=== PATIENT | female | born 1955 | race Caucasian/White ===

== ENCOUNTER 2019-04-09 10:51 | Outpatient (CLI) | payer MEDICARE, MEDICAID, SELFPAY ==
[2019-04-09 11:10] VITALS: BP 109/68; PULSE 68; RESP 18; TEMP 36.6; O2SAT 88
[2019-04-09] MEDS: denosumab 60 mg SDV SUBCUT (11:27)
[2019-04-09 12:00] VITALS: BP 125/75; PULSE 100; RESP 18; TEMP 36.6
== END 2019-04-09 10:52 | disposition home or self-care (01) ==
LOC: RHEOACUTE 10:53
PROVIDERS: Family Provider Family Medicine; Visit Provider Family Medicine
DX: M81.0 Age-related osteoporosis without current pathological fracture (principal)
CPT/HCPCS: 96372; J0897

== ENCOUNTER 2019-04-30 08:40 | Outpatient (CLI) | payer MEDICARE, MEDICAID, SELFPAY ==
--- NOTE | 2019-04-30 09:30 | PFTS_ITS ---
Date of Study:04/30/19 Date of Dictation: 04/30/19 MECHANICS: Forced vital capacity (FVC) is reduced. Forced expiratory volume in one second (FEV1) is reduced. FEV1/FVC is elevated. FLOW VOLUME LOOP: Narrow. LUNG VOLUMES: Total lung capacity (TLC) is not performed. Residual volume (RV) is not performed because of claustrophobia. Relatively preserved inspiratory capacity and significantly diminished expiratory reserve volume. DIFFUSING CAPACITY FOR CARBON MONOXIDE: Normal. INTERPRETATION: The pulmonary function tests are consistent with severe restriction. Given the relatively preserved inspiratory capacity and significantly diminished expiratory reserve volume the patient most likely has restriction secondary to obesity. Gas exchange (DLCO) is normal. MTDD
== END 2019-04-30 08:41 | disposition home or self-care (01) ==
LOC: RT 08:45
PROVIDERS: Family Provider Family Medicine; PCP Family Medicine; Visit Provider Family Medicine
DX: J44.9 Chronic obstructive pulmonary disease, unspecified (principal)
CPT/HCPCS: 94060; 94726; 94729; J7611

== ENCOUNTER 2019-05-15 10:26 | Outpatient (RCR) | payer MEDICARE, MEDICAID, SELFPAY | END 2019-05-17 23:59 | disposition home or self-care (01) | LOC: PULRHB 10:26 | PROVIDERS: Family Provider Family Medicine; PCP Family Medicine; Visit Provider Family Medicine | DX: I27.21 Secondary pulmonary arterial hypertension (principal) | CPT/HCPCS: 94618 ==

== ENCOUNTER 2019-05-16 10:53 | Inpatient (IN) | payer MEDICARE, MEDICAID, SELFPAY ==
[2019-05-16] VITALS (96 sets, daily range): BP systolic 95–167; BP diastolic 65–119; PULSE 85–121; RESP 14–22; TEMP 36.5–36.8; O2SAT 80–100; BMI 46.3
--- NOTE | 2019-05-16 | XRR_ITS ---
PROCEDURE INFORMATION: Exam: XR Chest, 1 View Exam date and time: 05/16/2019 2:54 PM Age: 64 years old Clinical indication: Device placement; Ett placement (vent status); Additional info: Post intubation TECHNIQUE: Imaging protocol: XR of the chest Views: 1 view. COMPARISON: CR XR chest 1V portable [id number] 05/16/2019 12:57 PM FINDINGS: Tubes, catheters and devices: An endotracheal tube is present, terminating 2.5 cm above the lucille. A nasogastric tube is seen entering the stomach. The distal tip is below the field of view on this exam. Lungs: Unremarkable. No consolidation. Pleural space: Unremarkable. No pleural effusion. No pneumothorax. Heart/Mediastinum: The cardiac silhouette is moderately enlarged, likely due to underlying cardiomegaly. Bones/joints: Unremarkable. XR/XR chest 1V portable [id number] IMPRESSION: 1. The endotracheal tube terminates 2.5 cm above the lucille. 2. A nasogastric tube is seen entering the stomach. The distal tip is below the field of view on this exam. 3. Moderate cardiomegaly
--- NOTE | 2019-05-16 11:10 | ED_ITS ---
Entered by Monique Guajardo, acting as scribe for Eligio Yi DO May 16, 2019 10:53 HPI - Headache General: Chief Complaint: Headache Stated Complaint: HEADACHE, VOMITING Time Seen by Provider: 05/16/19 11:05 Source: patient and EMS Mode of arrival: EMS Limitations: no limitations History of Present Illness: HPI Narrative: 64-year-old female presents emergency room with complaint of elevated blood pressure focal neurologic deficits on disc history taking. No new medications. She is never taking anything for a blood pressure up to this point. She denies chest pain or shortness of breath. On arrival patient difficult time speaking and then became progressively worsened.She was able to give me a history when she first arrived and answer questions for review of systems and then began to progressively deteriorate reviewing her old chart she has had a similar course in the past. MD elicited complaint: headache and other (high blood pressure) Onset (ago): day(s) (this morning) Onset description: gradually Location: right Severity: moderate Quality & Timing: throbbing Exacerbating factors: none Relieving factors: nothing Context: occurred at rest Associated symptoms: Reports nausea and vomiting; Deny chest pain, confusion, fever(s), malaise, rash or syncope Treatments prior to arrival: other (EMS, Oxygen) Review of Systems General: Reports: ROS unobtainable due to mental status (Intubated) Const: Denies: fever, chills, body aches, fatigue, malaise or night sweats Eyes: Denies: change in vision or blurry vision ENMT: Denies: throat pain, oral sores/lesions, dental pain, nasal discharge or nasal congestion Card: Reports: shortness of breath when lying down; Denies: chest pain, palpitations, irregular heart rhythm, edema, syncope, shortness of breath on exertion or leg pain with exertion Resp: Denies: shortness of breath, productive cough, non-productive cough or wheezing GI: Reports: nausea and vomiting : Denies: flank pain, painful urination, urinary frequency, urinary urgency, urinary incontinence or blood in urine Musc: Denies: neck pain, back pain, extremity pain, extremity swelling, joint pain or joint swelling Skin/Breast: Denies: rash, itching or redness Neuro: Reports: headache; Denies: numbness in extremities, weakness in extremities, changes in sensation, lack of coordination, difficulty walking, frequent falls, dizziness, vertigo or confusion Psych: Denies: anxiety, depression, loss of interest, visual hallucinations, auditory hallucinations, suicidal ideation or homicidal ideation Endo: Denies: excessive urination, excessive thirst, tired all the time or cold intolerance Maximo/Lymph: Denies: easy bruising, easy bleeding, petechiae, enlarged lymph nodes or tender lymph nodes PFSH ED PFSH: Medical History Acute on chronic diastolic (congestive) heart failure Cataract fragments in eye following surgery COPD (chronic obstructive pulmonary disease) Decompensated COPD with exacerbation (chronic obstructive pulmonary disease) Depression Diastolic congestive heart failure Hypercalcemia Elevated parathyroid hormone level in the past, 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 Hyperlipidemia Hypertension Moderate to severe mitral regurgitation Nonischemic cardiomyopathy Obesity Obstructive sleep apnea Pulmonary hypertension Seizure disorder Tricuspid regurgitation Type 2 diabetes mellitus Surgical History H/O mitral valve replacement History of Ulnar nerve compression Family History Other CAD (coronary artery disease) Social History Smoking and tobacco status: current every day smoker Alcohol intake: never Physical Exam Const: COMMON NORMALS: average body habitus, oriented x3 and alert GENERAL APPEARANCE: cooperative, comfortable, well kempt and well developed NUTRITIONAL APPEARANCE: obese ORIENTATION/CONSCIOUSNESS: Yes awake, Yes oriented to person and Yes oriented to place HENMT: COMMON NORMALS: normocephalic, head/scalp atraumatic, EAC's normal, TM's normal bilaterally, external nose normal, moist oral mucous membranes and oropharynx normal HEAD & SCALP: normocephalic and atraumatic NOSE: external nose normal EXTERNAL AUDITORY CANAL: EAC's normal TYMPANIC MEMBRANE: TM's normal bilaterally MOUTH: oral and palatal mucosa normal, lip normal and tongue normal THROAT: posterior oropharynx normal and tonsils normal Eye: COMMON NORMALS: PERRL, EOMs intact bilaterally, conjunctivae normal and no scleral icterus CONJUNCTIVA: Yes conjunctivae normal PUPIL: Yes PERRL Neck/C-Spine: COMMON NORMALS: full ROM, no lymphadenopathy, supple, no meningeal signs and thyroid normal THYROID: thyroid normal and asymmetrical Lymph: LYMPHATIC: no lymphadenopathy noted Cardio: COMMON NORMALS: regular rate and regular rhythm RATE: regular rate RHYTHM: regular rhythm HEART SOUNDS: no murmurs GI: COMMON NORMALS: normal to inspection, nondistended, normoactive bowel sounds, soft to palpation and no hepatosplenomegaly PALPATION: Yes soft and Yes no hepatosplenomegaly : COMMON NORMALS: Yes no CVA tenderness BLADDER/KIDNEY EXAM: Yes no CVA tenderness Back/Pelvis: COMMON NORMALS: no CVA tenderness LUMBAR SPINE/LOWER BACK: Yes normal to inspection Extremity: COMMON NORMALS: no clubbing, cyanosis or edema, no calf tenderness and no pedal edema Neuro: COMMON NORMALS: oriented x3 SENSORIUM/ORIENTATION: Yes alert, Yes oriented to person and Yes oriented to place MENINGEAL SIGNS: Yes no meningeal signs Psych: APPEARANCE: Yes well kempt Skin: COMMON NORMALS: no rashes or lesions noted and skin turgor normal GENERAL SKIN EXAM: no rashes or lesions noted and turgor normal Procedures Intubation Time out performed: No sedative: Etomidate Mg Given: 30 paralytic: Succinylcholine Mg Given: 120 Laryngoscope: Leann ET Tube Size: 8.5 ET Tube Uncuffed: No Tube Secured Depth (cm): 22 Tube Placement Confirmation: visualized tube passing through cords, equal breath sounds bilaterally, no breath sounds over epigastrium and confirmation by capnometry Patient Tolerated Procedure: well Intubation Complications: none Additional Comments: Recheck blood gas 45 to 60 minutes after intubation Course ED course: During the ER course patient progressively worsened. After we called for Dr. Leija to admit patient continued to worsen and eventually required intubation. She will be admitted to the ICU and started on antibiotics. Vital Signs: Vital signs: Vital Signs Temperature 98.2 F 05/20/19 08:00 Pulse Rate 97 05/20/19 10:00 Respiratory Rate 31 H 05/20/19 09:25 Blood Pressure 107/59 05/20/19 10:00 Pulse Oximetry 91 05/20/19 10:00 MDM - Headache Lab Data: Labs: Lab Results 05/16/19 05/16/19 05/16/19 Range/Units 11:50 11:55 11:55 WBC 24.7 H (4.0-10.0) 10^3/ uL RBC 5.63 H (4.1-5.3) 10^6/u L Hgb 15.3 (11.5-15.3) g/dL Hct 50.4 H (37.0-47.0) % MCV 89.5 (81-99) fL MCH 27.2 L (28.0-34.0) pg MCHC 30.4 (30.0-36.0) g/dL RDW 15.9 H (12.1-15.1) % Plt Count 261 (130-400) 10^3/c mm MPV 11.0 H (7.4-10.4) fL Neut % (Auto) 90.9 % Lymph % (Auto) 4.5 % [place] % (Auto) 3.5 % Eos % (Auto) 0.3 % Baso % (Auto) 0.2 % Neut # (Auto) 22.5 H (1.8-7.7) 10^3/u L Lymph # (Auto) 1.1 (0.8-4.8) 10^3/u L [place] # (Auto) 0.9 (0.2-0.9) 10^3/u L Eos # (Auto) 0.1 (0.0-0.8) 10^3/u L Baso # (Auto) 0.1 (0.0-0.1) 10^3/u L Nucleated RBC % (a uto) 0 % Nucleated RBCs # 0.0 /100WBC Sodium 135 L (136-145) mmol/L Potassium 4.0 (3.5-5.1) mmol/L Chloride 88 L (98-107) mmol/L Carbon Dioxide 31 H (22-29) mmol/L Anion Gap 20.0 H (5-19) BUN 22 (8-23) mg/dL Creatinine 1.2 H (0.5-0.9) mg/dL GFR Calculation 44.9 L (90-130) mL/min Glucose 218 H (65-115) mg/dL Calcium 10.9 H (8.5-10.5) mg/dL Total Bilirubin 0.6 (0.15-1.2) mg/dL AST 19 (0-32) U/L ALT 14 (0-33) U/L Alkaline Phosphata se 98 (35-105) IU/L Total Protein 8.9 H (6.6-8.7) g/dL Albumin 4.1 (3.5-5.2) g/dL Globulin 4.8 H (1.3-4.6) g/dL Lipase 106 H (13-60) U/L Serum Ketones (Negative) Influenza Type A A g Negative (Negative) POC Influenza B Ag Negative (Negative) 05/16/19 Range/Units 11:55 WBC (4.0-10.0) 10^3/ uL RBC (4.1-5.3) 10^6/u L Hgb (11.5-15.3) g/dL Hct (37.0-47.0) % MCV (81-99) fL MCH (28.0-34.0) pg MCHC (30.0-36.0) g/dL RDW (12.1-15.1) % Plt Count (130-400) 10^3/c mm MPV (7.4-10.4) fL Neut % (Auto) % Lymph % (Auto) % [place] % (Auto) % Eos % (Auto) % Baso % (Auto) % Neut # (Auto) (1.8-7.7) 10^3/u L Lymph # (Auto) (0.8-4.8) 10^3/u L [place] # (Auto) (0.2-0.9) 10^3/u L Eos # (Auto) (0.0-0.8) 10^3/u L Baso # (Auto) (0.0-0.1) 10^3/u L Nucleated RBC % (a uto) % Nucleated RBCs # /100WBC Sodium (136-145) mmol/L Potassium (3.5-5.1) mmol/L Chloride (98-107) mmol/L Carbon Dioxide (22-29) mmol/L Anion Gap (5-19) BUN (8-23) mg/dL Creatinine (0.5-0.9) mg/dL GFR Calculation (90-130) mL/min Glucose (65-115) mg/dL Calcium (8.5-10.5) mg/dL Total Bilirubin (0.15-1.2) mg/dL AST (0-32) U/L ALT (0-33) U/L Alkaline Phosphata se (35-105) IU/L Total Protein (6.6-8.7) g/dL Albumin (3.5-5.2) g/dL Globulin (1.3-4.6) g/dL Lipase (13-60) U/L Serum Ketones Negative (Negative) Influenza Type A A g (Negative) POC Influenza B Ag (Negative) Imaging Data^: CT Head: Radiologist's impression: [address] [address] [address] Scan Report Signed Patient: Yaquelin Loera #: [id number] : 4Acc#:[id number] Age/Sex: 64 / FADM Date: 05/16/19 Loc: ERRoom/Bed: Attending Dr: Ordering Provider/Ordering MD: Eligio Yi DO Date of Service: 05/16/19 Procedure(s): CT head wo con* [id number] Accession Number(s): [id number] Report Number: [id number] PROCEDURE INFORMATION: Exam: CT Head Without Contrast Exam date and time: 05/16/2019 11:31 AM Age: 64 years old Clinical indication: Pain; Headache; Patient HX: Onset of headaceh with n/v starting today. ; Additional info: Headache/n/v TECHNIQUE: Imaging protocol: Computed tomography of the head without contrast. Total DLP: 1443.81 mGy-cm Radiation optimization: All CT scans at this facility use at least one of these dose optimization techniques: automated exposure control; mA and/or kV adjustment per patient size (includes targeted exams where dose is matched to clinical indication); or iterative reconstruction. COMPARISON: CT head wo con* [id number] 02/02/2019 11:31 AM FINDINGS: Brain: There is no acute intracranial hemorrhage, cerebral edema, or midline shift. Chronic microvascular ischemic changes are seen in the periventricular white matter. Ventricles: No hydrocephalus. Bones/joints: No acute fracture. Sinuses: Several opacified posterior right ethmoid air cells are noted. The paranasal sinuses are otherwise clear. Mastoid air cells: There is complete opacification of the left mastoid air cells and left middle ear cavity, new since the prior exam. Partial opacification of the right mastoid air cells is unchanged from the prior exam. Orbits: The included orbital structures are unremarkable. Soft tissues: Unremarkable. CT/CT head wo con* [id number] IMPRESSION: 1. No acute intracranial abnormality. 2. New left otomastoiditis Radiation Dose CTDIVOL = (mGy): DLP = 1443.81 (mGy-cm) Dictated By:Alpesh Roe MD Signed By:Alpesh Roe MDSigned Date/Time:05/16/19 1211 CXR: Radiologist's impression: [place] [address] XRay Report Signed Patient: Yaquelin Loera #: [id number] : 1955cct#:[id number] Age/Sex: 64 / FADM Date: 05/16/19 Loc: ERRoom/Bed: Attending Dr: Ordering Provider/Ordering MD: Eligio Yi DO Date of Service: 05/16/19 Procedure(s): XR chest 1V portable [id number] Accession Number(s): [id number] Report Number: [id number] WS: [id number] Portable AP supine chest, 05/16/2019 Clinical Data: dyspnea/cough Comparison: Portable chest, 02/11/2019. Findings: The heart remains enlarged. The pulmonary vascularity is increased. No nodules, masses or effusions are seen. The aortic arch is mildly tortuous. No pneumonia or pneumothorax is present. XR/XR chest 1V portable [id number] Impression: 1. Cardiomegaly with pulmonary vascular congestion. 2. Atherosclerosis. Dictated By:Yesy Trinidad MD Signed By:Yesy Trinidad MDSigned Date/Time:05/16/19 1322 Other Xray: Radiologist's impression: [place] [address] XRay Report Signed Patient: Yaquelin Loera #: [id number] : 1955cct#:[id number] Age/Sex: 64 / FADM Date: 05/16/19 Loc: ERRoom/Bed: Attending Dr: Ordering Provider/Ordering MD: Eligio Yi DO Date of Service: 05/16/19 Procedure(s): XR chest 1V portable [id number] Accession Number(s): [id number] Report Number: [id number] PROCEDURE INFORMATION: Exam: XR Chest, 1 View Exam date and time: 05/16/2019 2:54 PM Age: 64 years old Clinical indication: Device placement; Ett placement (vent status); Additional info: Post intubation TECHNIQUE: Imaging protocol: XR of the chest Views: 1 view. COMPARISON: CR XR chest 1V portable [id number] 05/16/2019 12:57 PM FINDINGS: Tubes, catheters and devices: An endotracheal tube is present, terminating 2.5 cm above the lucille. A nasogastric tube is seen entering the stomach. The distal tip is below the field of view on this exam. Lungs: Unremarkable. No consolidation. Pleural space: Unremarkable. No pleural effusion. No pneumothorax. Heart/Mediastinum: The cardiac silhouette is moderately enlarged, likely due to underlying cardiomegaly. Bones/joints: Unremarkable. XR/XR chest 1V portable [id number] IMPRESSION: 1. The endotracheal tube terminates 2.5 cm above the lucille. 2. A nasogastric tube is seen entering the stomach. The distal tip is below the field of view on this exam. 3. Moderate cardiomegaly Dictated By:Alpesh Roe MD Signed By:Alpesh Roe MDSigned Date/Time:05/16/19 1526 Critical Care Time Critical Care Time: Total Critical Care Time: 60 Attestation: This case had a high probability of a clinically significant, sudden, or life threatening deterioration of this patient's condition which required my full and direct attention, intervention and personal management. Discharge Plan Discharge Patient Disposition: Admitted As Inpatient Admit Provider: Yariel Leija Clinical Impression: Respiratory failure, Acute diastolic heart failure, Moderate to severe mitral regurgitation, Decompensated COPD with exacerbation (chronic obstructive pulmonary disease), Nonischemic cardiomyopathy, Acute on chronic diastolic (congestive) heart failure Condition: Stable Referrals: Tashi Acosta MD [Primary Care Provider] - Interventions: ED Discharge Assessment Last Done: 05/16/19 16:25 Discharge Date/Time: 05/16/19 16:25 Coding Level of Care Code ED Certified Flex Endoscope Reprocessor for Chg Fwd Exam Comprehensive The documentation recorded by the Bennett restrepo Bridget Annette, accurately reflects the service I personally performed and the decisions made by Kassidy dumont Curtis L, DO May 16, 2019 10:53
--- NOTE | 2019-05-16 11:15 | ECG_ITS ---
Measurements Intervals [place] Rate: 111 P: 60 LA: 169 QRS: 88 QRSD: 93 T: 49 QT: 345 QTc: 471 SINUS TACHYCARDIA WITH FREQUENT VENTRICULAR PREMATURE COMPLEXES WITH OCCASIONAL SUPRAVENTRICULAR PREMATURE COMPLEXES POSSIBLE LEFT ATRIAL ENLARGEMENT [-0.1mV P WAVE IN V1/V2] ABNORMAL RHYTHM ECG Compared to ECG 02/14/2019 19:10:35 Ventricular premature complex(es) now present Sinus rhythm no longer present Myocardial infarct finding no longer present Electronically Signed On 05-17-2019 7:51:52 ROLLOUT MANAGER by Rosa Gayle M.D. [email or web address]
--- NOTE | 2019-05-16 11:23 | CTR_ITS ---
PROCEDURE INFORMATION: Exam: CT Head Without Contrast Exam date and time: 05/16/2019 11:31 AM Age: 64 years old Clinical indication: Pain; Headache; Patient HX: Onset of headaceh with n/v starting today. ; Additional info: Headache/n/v TECHNIQUE: Imaging protocol: Computed tomography of the head without contrast. Total DLP: 1443.81 mGy-cm Radiation optimization: All CT scans at this facility use at least one of these dose optimization techniques: automated exposure control; mA and/or kV adjustment per patient size (includes targeted exams where dose is matched to clinical indication); or iterative reconstruction. COMPARISON: CT head wo con* [id number] 02/02/2019 11:31 AM FINDINGS: Brain: There is no acute intracranial hemorrhage, cerebral edema, or midline shift. Chronic microvascular ischemic changes are seen in the periventricular white matter. Ventricles: No hydrocephalus. Bones/joints: No acute fracture. Sinuses: Several opacified posterior right ethmoid air cells are noted. The paranasal sinuses are otherwise clear. Mastoid air cells: There is complete opacification of the left mastoid air cells and left middle ear cavity, new since the prior exam. Partial opacification of the right mastoid air cells is unchanged from the prior exam. Orbits: The included orbital structures are unremarkable. Soft tissues: Unremarkable. CT/CT head wo con* [id number] IMPRESSION: 1. No acute intracranial abnormality. 2. New left otomastoiditis Radiation Dose CTDIVOL = (mGy): DLP = 1443.81 (mGy-cm)
--- NOTE | 2019-05-16 11:37 | PC.NURSE ---
pt transported to CT by stretcher with tech
[2019-05-16] MEDS: ondansetron 2 mg/ML SDV 2 mL 4 MG IVP (11:48)
[2019-05-16] MEDS: sodium chloride 0.9% 1,000 ML 999 ML IV (11:48)
[2019-05-16 12:14] LABS: Basophils # 0.1 10^3/uL (0.0-0.1); Basophils % 0.2 %; Eosinophils # 0.1 10^3/uL (0.0-0.8); Eosinophils % 0.3 %; Hematocrit 50.4 % (37.0-47.0); Hemoglobin 15.3 g/dL (11.5-15.3); Lymphocytes # 1.1 10^3/uL (0.8-4.8); Lymphocytes % 4.5 %; Mean Corpuscular HGB Conc 30.4 g/dL (30.0-36.0); Mean Corpuscular Hemoglobin 27.2 pg (28.0-34.0); Mean Corpuscular Volume 89.5 fL (81-99); Monocytes # 0.9 10^3/uL (0.2-0.9); Monocytes % 3.5 %; Neutrophils # 22.5 10^3/uL (1.8-7.7); Neutrophils % 90.9 %; Nucleated Red Blood Cells % 0 %; Platelet Count 261 10^3/cmm (130-400); Red Blood Count 5.63 10^6/uL (4.1-5.3); Red Cell Distribution Width 15.9 % (12.1-15.1); White Blood Count 24.7 10^3/uL (4.0-10.0)
[2019-05-16 12:20] LABS: Ketone (Acetest) Serum Negative (Negative)
[2019-05-16 12:31] LABS: Alanine Aminotransferase 14 U/L (0-33); Albumin Level 4.1 g/dL (3.5-5.2); Alkaline Phosphatase 98 IU/L (35-105); Aspartate Amino Transferase 19 U/L (0-32); Blood Urea Nitrogen 22 mg/dL (8-23); Calcium 10.9 mg/dL (8.5-10.5); Carbon Dioxide 31 mmol/L (22-29); Chloride 88 mmol/L (98-107); Globulin 4.8 g/dL (1.3-4.6); Glomerular Filtration Rate 44.9 mL/min (90-130); Glucose 218 mg/dL (65-115); Lipase 106 U/L (13-60); Sodium 135 mmol/L (136-145); Total Bilirubin 0.6 mg/dL (0.15-1.2); Total Protein 8.9 g/dL (6.6-8.7)
[2019-05-16 12:36] LABS: Influenza A by IFA Negative (Negative); Influenza B by IFA Negative (Negative)
--- NOTE | 2019-05-16 12:53 | XR_ITS ---
WS: [id number] Portable AP supine chest, 05/16/2019 Clinical Data: dyspnea/cough Comparison: Portable chest, 02/11/2019. Findings: The heart remains enlarged. The pulmonary vascularity is increased. No nodules, masses or e ffusions are seen. The aortic arch is mildly tortuous. No pneumonia or pneumothorax is present. XR/XR chest 1V portable [id number] Impression: 1. Cardiomegaly with pulmonary vascular congestion. 2. Atherosclerosis.
--- NOTE | 2019-05-16 13:00 | PC.NURSE ---
portable xray at bedside
--- NOTE | 2019-05-16 13:22 | CTR_ITS ---
PROCEDURE INFORMATION: Exam: CT Abdomen And Pelvis With Contrast Exam date and time: 05/16/2019 2:39 PM Age: 64 years old Clinical indication: Nausea and vomiting; Patient HX: Nausea vomiting and dizziness; Additional info: Abd pain TECHNIQUE: Imaging protocol: Computed tomography of the abdomen and pelvis with intravenous contrast. Total DLP: 1907.68 mGy-cm Radiation optimization: All CT scans at this facility use at least one of these dose optimization techniques: automated exposure control; mA and/or kV adjustment per patient size (includes targeted exams where dose is matched to clinical indication); or iterative reconstruction. Contrast material: VISI 320; Contrast volume: 95 ml; Contrast route: 20G; COMPARISON: CT abdomen pelvis w con* [id number] 12/28/2018 3:25 PM FINDINGS: Tubes, catheters and devices: A nasogastric tube is seen terminating in the stomach. Lungs: Atelectasis is present in the lower lobes. Heart: Heart is mildly enlarged. Liver: Normal. No mass. Gallbladder and bile ducts: The gallbladder is moderately distended. There is no pericholecystic inflammation. Pancreas: Normal. No ductal dilation. Spleen: Normal. No splenomegaly. Adrenals: There is mild specific left adrenal gland thickening. The right adrenal gland is unremarkable. Kidneys and ureters: Normal. No hydronephrosis. Stomach and bowel: Unremarkable. No obstruction. No mucosal thickening. Appendix: No evidence of appendicitis. Intraperitoneal space: Unremarkable. No free air. No significant fluid collection. Vasculature: Unremarkable. No abdominal aortic aneurysm. Lymph nodes: Unremarkable. No enlarged lymph nodes. Bladder: The bladder is decompressed around a Garza catheter. Reproductive: Unremarkable as visualized. Bones/joints: Bone mineralization is decreased, suggestive of osteopenia. There is a new T12 inferior endplate compression fracture. Mild T12 vertebral body height loss is present. There is no retropulsion into the spinal canal. Additionally, there is a new comminuted compression or burst fracture L4. There is approximately 60% loss L4 vertebral body height. Minimal retropulsion into the spinal canal is present. This is not causing significant canal stenosis. However, there is moderate/severe canal stenosis at the level of the L4-L5 disc due to circumferential disc bulging, thickening of the ligamentum flavum, and facet arthropathy. Soft tissues: Unremarkable. CT/CT abdomen pelvis w con* [id number] IMPRESSION: 1. New T12 and L4 compression fractures, possibly subacute. The L4 fracture is a comminuted compression or burst fracture. 2. Chronic findings as discussed above. Radiation Dose CTDIVOL = (mGy): DLP = 1907.68 (mGy-cm)
[2019-05-16] MEDS: ipratropium-albuterol 3 mL Neb INHALATION ×2 (13:45→20:46)
--- NOTE | 2019-05-16 14:01 | PC.NURSE ---
pt put in supine position for straight catheter procedure. When procedure complete Pt dropped down to 60% on NC 2L. Respiratory therapy in room. Face mask applied and breathing treatment started. Oxygen increased 6L at that time. Pt's status improved.
[2019-05-16 14:02] LABS: Add Urine Microscopic? YES; Bilirubin Urine Neg (NEGATIVE); Blood Urine Neg (Negative); Glucose Urine UA Norm (Normal); Ketones Urine Negative (Negative); Leukocyte Esterase Urine Negative (Negative); Nitrate Urine Negative (Negative); Protein Urine Neg (Negative); Urine Appearance SL Hazy (CLEAR); Urine Color Straw (Yellow); Urobilinogen Urine Norm (Negative); pH Urine 7 (5-7)
[2019-05-16] MEDS: cefTRIAXone 1,000 MG in sodium chloride 0.9% (plus) 50 ML 100 MG IV (14:10)
--- NOTE | 2019-05-16 14:14 | PC.NURSE ---
hospitalist in room. Pt is not verbally responding at this time. Pt is 89-90% on 4L NC. Orders received
[2019-05-16 14:15] LABS: Add Urine Culture? No; Amorphous Sediment Urine 1+; Bacteria Urine TRACE
[2019-05-16 14:32] LABS: ABG PCO2 47.8 mmHg (35-45); Arterial Blood Gas Hematocrit 48.7 % (37-47); Base Excess ABG 3.8 mmol/L (-2.0-2.0); Blood Gas Allen Test Pos; Blood Gas Operator Identificat amh; Blood Gas Sample Site Radial, right; Blood Gas Sample Type Arterial; Carboxyhemoglobin 2.2 %THgb (0.4-20.1); HCO3 ABG 29.6 mmol/L (22-26); HGB O2 Sat 85.4 % (95-100); Ionized Calcium Level - ABG 1.2 mmol/L (1.1-1.4); Methemoglobin 0.1 % (0.4-1.5); Oxygen Device NC; Oxygen Saturation ABG 87.4; PO2 ABG 53.4 mmHg (80.0-100.0); Potassium Level - ABG 3.4 mmol/L (3.5-5.0); Total Hemoglobin 15.9 g/dL (12-16)
--- NOTE | 2019-05-16 14:40 | PC.NURSE ---
RSI intubation with ED Physician, RT *2, and RN*2. 30 etomidate and 100 succinocholine given at 1435, 8.0 ET tube placed at 1435. 18[place] [address] with positive gastric contents returned. 18fr nascimento catheter placed at 1440. Post procedure vital signs HR 105, 100% O2, 14 resp, bp 116/69
--- NOTE | 2019-05-16 14:44 | PC.NURSE ---
portable CXR at bedside for placement confirmation
[2019-05-16] MEDS: succinylcholine 20 mg/mL SDV 10mL 100 MG IV (14:48)
[2019-05-16] MEDS: propofol 1,000 MG/100 ML INJ 3 MG IV (14:49)
[2019-05-16 14:53] LABS: Troponin(5th) Baseline 30 ng/mL (0-10)
--- NOTE | 2019-05-16 14:53 | P.HP_ITS ---
Providers/Chief Complaint Primary Care Provider: Tashi Acosta MD Chief Complaint: HEADACHE, VOMITING History of Present Illness Yaquelin Loera is a 64 year old female that presented to the emergency department with headache, vomiting. There is some concern of shortness of breath as well. When I went to evaluate her, she was not able to speak with me, confused, short of breath. Her oxygen level was around 90% and heart rate 120. She was in moderate to severe respiratory distress. I alerted the emergency department physician and on repeat evaluation it was thought that she needed endotracheal intubation. Therefore, further history was unable to be obtained from the patient. Further history was obtained from multiple old records regarding previous hospitalizations. Review of Systems General: Reports: ROS unobtainable due to mental status (Intubated) Medications/Allergies Home Medications Medication Instructions Recorded Confirmed Last Taken Type Actos See Rx Instructions .ROUTE .COMPLEX 05/16/19 05/16/19 05/16/19 07:00 History Ozempic See Rx Instructions .ROUTE .[facility] 05/16/19 05/16/19 05/12/19 07:00 History acetaminophen [Tylenol Extra 1,000 mg PO Q4H PRN 05/16/19 05/16/19 05/15/19 18:26 History Strength] bisacodyl [Dulcolax (bisacodyl)] 5 mg PO DAILY PRN 05/16/19 05/16/19 Unknown History bisacodyl [Dulcolax (bisacodyl)] See Rx Instructions .ROUTE .[facility] 05/16/19 05/16/19 Unknown History calcitonin (salmon) See Rx Instructions .ROUTE .[facility] 05/16/19 05/16/19 05/16/19 07:00 History carbamide peroxide [Debrox] See Rx Instructions .ROUTE .COMPLEX 05/16/19 05/16/19 Unknown History cholecalciferol (vitamin D3) 25 mcg PO DAILY 05/16/19 05/16/19 05/16/19 07:00 History [Vitamin D3] fluticasone furoate [Flonase 1 spray INTRANASAL DAILY 05/16/19 05/16/19 05/16/19 07:00 History Sensimist] [id number] See Rx Instructions .ROUTE .COMPLEX 05/16/19 05/16/19 05/16/19 07:00 History [Trelegy Ellipta] furosemide [Lasix] 40 mg PO DAILY 05/16/19 05/16/19 05/16/19 07:00 History gabapentin 300 mg PO TID 05/16/19 05/16/19 05/16/19 07:00 History hydroxyzine pamoate [Vistaril] See Rx Instructions .ROUTE .[facility] 05/16/19 05/16/19 05/15/19 20:00 History insulin aspart U-100 [Novolog See Rx Instructions .ROUTE .COMPLEX 05/16/19 05/16/19 Unknown History U-100 Insulin aspart] insulin degludec [Tresiba 10 unit SUBCUT BEDTIME 05/16/19 05/16/19 05/15/19 20:00 History FlexTouch U-100] ipratropium-albuterol 3 ml INHALATION Q4H PRN 05/16/19 05/16/19 Unknown History levetiracetam See Rx Instructions .ROUTE .[facility] 05/16/19 05/16/19 05/15/19 19:00 History losartan 25 mg PO DAILY 05/16/19 05/16/19 05/16/19 07:00 History magnesium hydroxide [Milk of See Rx Instructions .ROUTE .[facility] 05/16/19 05/16/19 Unknown History Magnesia] melatonin 5 mg PO BEDTIME 05/16/19 05/16/19 05/15/19 20:00 History nicotine 1 patch TRANSDERMAL Q24H 05/16/19 05/16/19 05/15/19 History nystatin 1 applic TOPICAL BID 05/16/19 05/16/19 Unknown History ondansetron 4 mg PO Q4H PRN 05/16/19 05/16/19 Unknown History roflumilast [Daliresp] 500 mcg PO DAILY 05/16/19 05/16/19 05/16/19 07:00 History rosuvastatin 40 mg PO BEDTIME 05/16/19 05/16/19 05/15/19 20:00 History sitagliptin [Januvia] 100 mg PO DAILY 05/16/19 05/16/19 05/16/19 07:00 History sodium phosphates [Fleet Enema] See Rx Instructions .ROUTE .[facility] 05/16/19 05/16/19 Unknown History venlafaxine 75 mg PO DAILY 05/16/19 05/16/19 05/16/19 07:00 History Allergies Allergy/AdvReac Type Severity Reaction Status Date / Time Penicillins Allergy ALGY-Anaphy Verified 05/16/19 11:16 laxis Sulfa (Sulfonamide Allergy ALGY-Anaphy Verified 05/16/19 11:16 Antibiotics) laxis PFSH Acute PFSH: Medical History (Updated 05/16/19 @ 15:10 by Yariel Leija MD) Cataract fragments in eye following surgery COPD (chronic obstructive pulmonary disease) Depression Diastolic congestive heart failure Hypercalcemia Elevated parathyroid hormone level in the past, 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 Hyperlipidemia Hypertension Obesity Obstructive sleep apnea Pulmonary hypertension Seizure disorder Tricuspid regurgitation Type 2 diabetes mellitus Surgical History (Updated 05/16/19 @ 15:00 by Yariel Leija MD) H/O mitral valve replacement History of Ulnar nerve compression Family History (Updated 05/16/19 @ 15:00 by Yariel Leija MD) Other CAD (coronary artery disease) Social History (Updated 05/16/19 @ 15:00 by Yariel Leija MD) Smoking and tobacco status: current every day smoker Alcohol intake: never Substance/Drug Use: never Vitals/I&O/Wt Last Vital Signs Temp 97.7 F 05/16/19 11:10 Pulse 114 H 05/16/19 14:13 Resp 22 H 05/16/19 13:54 BP 148/103 05/16/19 14:13 Pulse Ox 90 05/16/19 14:13 Weight last 48 hrs Weight 100.698 kg Physical Exam Narrative: EXAM NARRATIVE: General exam demonstrates an obese white female, acting confused, and moderate to severe respiratory distress HEENT: Pupils equally round. Oropharynx clear but now with endotracheal tube Neck is supple, short, obese Cardiovascular tachycardic, no murmur Lungs bilateral expiratory wheezes and markedly diminished breath sounds bila terally Abdomen is soft, obese. No obvious tenderness. Unable to tell if hepatosplenomegaly is present demonstrates Garza Extremities no cyanosis or clubbing. Trace edema is present. Skin without rash Neuro no focal deficits Data : 05/16/19 11:55 05/16/19 11:55 Other Labs: ABG is reviewed. Significant hypoxia exists LFTs are normal. Lipase slightly elevated at 106. Urinalysis with no evidence of infection. Influenza negative Serum ketones negative Chest x-ray demonstrates endotracheal tube, pulmonary vascular congestion, borderline cardiomegaly EKG demonstrates sinus tachycardia, normal axis, multiple PVCs, biphasic P wave in V1, poor R wave progression Micro: Microbiology 05/16/19 13:51 Blood Culture - Preliminary Blood SPECIMEN COLLECTED 05/16/19 11:55 Blood Culture - Preliminary Blood SPECIMEN COLLECTED A&P Assessment and plan (1) Respiratory failure: Multifactorial. Most significant is acute diastolic heart failure. Lasix 60 mg IV x1 has been given in the emergency department. Patient has been intubated. Multiple cofactors including obesity hypoventilation, COPD, untreated sleep apnea, etc. had recent hospital stay for similar presentation. Status: Acute Code(s): J96.90 - Respiratory failure, unspecified, unspecified whether with hypoxia or hypercapnia (2) Acute diastolic heart failure: Lasix 60 mg IV every 12 hours Close follow-up of electrolytes Recent echocardiogram reviewed from December 2018 with EF 61%, severe pulmonary hypertension and severe tricuspid regurgitation. No need to repeat currently. Status: Acute Code(s): I50.31 - Acute diastolic (congestive) heart failure (3) COPD exacerbation: IV steroids Solu-Medrol 60 mg every 12 hours Cefepime Pulmonary toilet Would benefit from BiPAP at home if she would be compliant with this. Status: Acute Code(s): J44.1 - Chronic obstructive pulmonary disease with (acute) exacerbation (4) Elevated troponin: Trend troponins Doubt acute myocardial infarction. Status: Acute Code(s): R79.89 - Other specified abnormal findings of blood chemistry (5) Elevated lipase: Doubt pancreatitis. CT abdomen pelvis pending Status: Acute Code(s): R74.8 - Abnormal levels of other serum enzymes (6) Leukocytosis: Recently on steroids. Cannot rule out pulmonary infection. Rocephin and azithromycin started. Status: Acute Code(s): D72.829 - Elevated white blood cell count, unspecified Additional A&P Information History of hypercalcemia, appears to be on Miacalcin. Elevated parathyroid hormone level in the past Depression/anxiety Hyperlipidemia Hypertension History of severe pulmonary hypertension History of obesity Likely obesity hypoventilation History of seizure disorder, on Keppra Type 2 diabetes Multiple other medical problems as outlined in past medical history Full code Lovenox for DVT prophylaxis Attestations Medical Necessity Statement*: Will need greater than 2 midnight stay for treatment of respiratory failure, acute diastolic heart failure Time Spent in Patient Care: Greater than 35 minutes Critical Care Time: 90 minutes of time spent with the patient, with review of records, examination of the patient, planning secondary to respiratory failure requiring endotracheal intubation in the emergency department and diversion to ICU instead of floor. Coding Level of Care Code Acute Staff Air Tactical Officer for Kanchan Abdi Diagnoses Respiratory failure J96.90 Acute diastolic heart failure I50.31 COPD exacerbation J44.1 Elevated troponin R79.89 Elevated lipase R74.8 Leukocytosis D72.829
--- NOTE | 2019-05-16 14:56 | PC.NURSE ---
50mcg propofol bolus given over 1 minute
[2019-05-16] MEDS: azithromycin 500 MG in sodium chloride 0.9% 250 ML 250 MG IV (15:02)
[2019-05-16] MEDS: FUROsemide 10 mg/mL SDV 10mL 60 MG IVP (15:14)
--- NOTE | 2019-05-16 16:09 | ECG_ITS ---
Measurements Intervals [place] Rate: 92 P: 54 IL: 161 QRS: 58 QRSD: 87 T: 72 QT: 356 QTc: 441 SINUS RHYTHM WITH OCCASIONAL VENTRICULAR PREMATURE COMPLEXES POSSIBLE LEFT ATRIAL ENLARGEMENT [-0.1mV P WAVE IN V1/V2] NONSPECIFIC T-WAVE ABNORMALITY Compared to ECG 02/14/2019 19:10:35 Ventricular premature complex(es) now present T-wave abnormality now present Myocardial infarct finding no longer present Electronically Signed On 05-17-2019 20:32:49 MANUSCRIPTS CURATOR by Jay Adler M.D. [email or web address]
--- NOTE | 2019-05-16 16:21 | PC.NURSE ---
50mcg propofol bolus given over 1 minute
[2019-05-16] MEDS: iodixanol 320 mg/mL 100mL Btl IV (16:39)
[2019-05-16] MEDS: sodium chloride 0.9% 1,000 ML 100 ML IV (17:52)
[2019-05-16] MEDS: enoxaparin 40 mg/0.4 mL Syringe SUBCUT (17:53)
[2019-05-16] MEDS: levETIRAcetam 500 mg Tablet OG-TUBE ×2 (17:53→18:58)
[2019-05-16 18:04] LABS: Lipase 43 U/L (13-60)
[2019-05-16 18:08] LABS: ABG PCO2 37.5 mmHg (35-45); ABG PH Result 7.49 (7.35-7.45); Alveolar-Arterial Oxygen Gradi 89.6 mmHg (5-10); Arterial Blood Gas Hematocrit 48.3 % (37-47); Base Excess ABG 4.8 mmol/L (-2.0-2.0); Blood Gas Allen Test Pos; Blood Gas Sample Site Radial, left; Blood Gas Sample Type Arterial; Blood Gas Tidal Volume 0.5; Carboxyhemoglobin 1.1 %THgb (0.4-20.1); HCO3 ABG 28.3 mmol/L (22-26); HGB O2 Sat 97.9 % (95-100); Ionized Calcium Level - ABG 1.2 mmol/L (1.1-1.4); Methemoglobin 0.7 % (0.4-1.5); Oxygen Device VENT; Oxygen Saturation ABG 99.8; Potassium Level - ABG 3.4 mmol/L (3.5-5.0); Total Hemoglobin 15.8 g/dL (12-16)
[2019-05-16] MEDS: cefepime 2,000 MG in sodium chloride 0.9% (plus) 50 ML 100 MG IV (19:00)
--- NOTE | 2019-05-16 19:39 | PC.NURSE ---
1655 RECD. FROM E.D. INTUBATED, ON PROPOFOL
--- NOTE | 2019-05-16 20:09 | ECG_ITS ---
Measurements Intervals [place] Rate: 109 P: -18 AK: 136 QRS: 72 QRSD: 88 T: 47 QT: 354 QTc: 478 SINUS TACHYCARDIA WITH FREQUENT VENTRICULAR PREMATURE COMPLEXES NONSPECIFIC T-WAVE ABNORMALITY ABNORMAL RHYTHM ECG Compared to ECG 02/14/2019 19:10:35 Ventricular premature complex(es) now present T-wave abnormality now present Sinus rhythm no longer present Myocardial infarct finding no longer present Electronically Signed On 05-17-2019 7:54:59 TUBE ROLLER by Rosa Gayle M.D. [email or web address]
--- NOTE | 2019-05-16 20:33 | PC.NURSE ---
opening note upon entering room patient is laying in bed resting. patient does respond to touch and verbal communication. patient is intubated with an 8.0 tube 24 at the lip. VT:450, PEEP: 8, fio2:35 RR:14. patient has an OG that is clammed. soft restraints on bilateral upper extremities for patient safety. 22G in the left hand with NS at 100ml/hr. 20G to right forearm with proprfol at 15mcg/kg/min. nascimento in place with clear urine output. vital signs are stable. HR:90 O2:96 rr:14 BP: 105/73
[2019-05-16] MEDS: budesonide 0.5 mg/2 mL Neb INHALATION (20:46)
[2019-05-16] MEDS: atorvastatin 40 mg Tablet 80 MG PO (21:08)
[2019-05-16] MEDS: gabapentin 300 mg Capsule PO (21:08)
[2019-05-16] MEDS: propofol 1,000 MG/100 ML INJ 9.1 MG IV (23:17)
--- NOTE | 2019-05-16 23:58 | PC.NURSE ---
turned patient. patient had green stomach contents coming around OG tube. OG hooked to low intermitted suction.
[2019-05-17] VITALS (196 sets, daily range): BP systolic 84–131; BP diastolic 49–78; PULSE 86–157; RESP 14–20; TEMP 36.9–37.7; O2SAT 94–100
--- NOTE | 2019-05-17 | USCV_ITS ---
Yaquelin Loera Age: 64 Gender: F : 1955 Exam Date: 05/17/2019 12:41 Ordering Phys: Yariel Leija MD Technologist: Ena Roldan [place] [facility] [place]: Elevated troponin BP: 123 / 64 HR: 94 Rhythm: Sinus Technical Quality: Technically difficult study MEASUREMENTS (Male / Female) Normal Values 2D ECHO LV Diastolic Diameter PLAX 4.5 cm 4.2 - 5.9 / 3.9 - 5.3 cm LV Systolic Diameter PLAX 2.6 cm LV Chamber Size 3.9 cm IVS Diastolic Thickness 1.0 cm 0.6 - 1.0 / 0.6 - 0.9 cm IVS Systolic Thickness 1.4 cm LVPW Diastolic Thickness 1.6 cm 0.6 - 1.0 / 0.6 - 0.9 cm LVPW Systolic Thickness 1.6 cm RV Chamber Size 3.2 cm LVOT Diameter 1.9 cm LV Ejection Fraction 2D Teich 74.2 % LA Diameter 3.9 cm LA Width 2.6 cm LA Height 4.7 cm RA Width 2.5 cm RA Height 3.8 cm Aorta at Sinotubular Diameter 2.1 cm M-MODE LV Diastolic Diameter MM 5.9 cm 4.2 - 5.9 / 3.9 - 5.3 cm LV Systolic Diameter MM 4.0 cm LV Ejection Fraction MM Teich 58.7 % IVS Diastolic Thickness MM 1.2 cm 0.6 - 1.0 / 0.6 - 0.9 cm IVS Systolic Thickness MM 1.3 cm LVPW Diastolic Thickness MM 1.0 cm 0.6 - 1.0 / 0.6 - 0.9 cm LVPW Systolic Thickness MM 1.7 cm Aortic Annulus Diameter 2.8 cm LA Ao Ratio MM 1.4 MV E Point Septal Separation 0.7 cm DOPPLER AV Peak Velocity 149.0 cm/s LVOT Peak Velocity 99.0 cm/s AV Area Cont Eq vti 1.9 cm squared AV Area Cont Eq pk 1.9 cm squared MV Area PHT 6.3 cm squared Mitral E to A Ratio 1.6 MV E' Velocity 8.0 cm/s Mitral E to MV E' Ratio 18.3 Mitral E to LV E' Lateral Ratio 13.9 Mitral E to LV E' Septal Ratio 27.2 TR Peak Velocity 157.0 cm/s TR Peak Gradient 9.9 mmHg TV Peak E Velocity 55.0 cm/s Right Atrial Pressure 15.0 mmHg Pulmonary Artery Systolic Pressu 24.9 mmHg FINDINGS Left Ventricle Relative hypokinesia of the basal and mid septum and the anteroseptal segments. Overall ejection fraction around 50 to 55%. Right Ventricle Mildly increased right ventricular size. Right Atrium Mildly increased right atrial size. Left Atrium Mildly increased left atrial size. Mitral Valve Thickened mitral valve. Mild mitral annular calcification. Moderate-severe mitral valve regurgitation. Aortic Valve Thickened aortic valve. Trace aortic valve regurgitation. Tricuspid Valve Trace tricuspid valve regurgitation. Pulmonic Valve Structurally normal pulmonic valve without significant stenosis. There is no pulmonic regurgitation. Pericardium Normal pericardium without effusion. Aorta Plaque seen in the ascending aorta. CONCLUSIONS Relative hypokinesia of the basal and mid septum and the anteroseptal segments. Overall ejection fraction around 50 to 55%. Thickened mitral valve. Mild mitral annular calcification. Moderate-severe mitral valve regurgitation. Mildly biatrial enlargement Thickened aortic valve. Trace aortic valve regurgitation. There is no pericardial effusion. There are no intracardiac masses. Technically very limited study Comparison with the previous study from 04/28/2018 is difficult because of the difference in the technical quality. Dr Jay Adler MD [facility] (Electronically Signed) Final Date: 17 May 2019 19:19 S
[2019-05-17] MEDS: sodium chloride 0.9% 1,000 ML 100 ML IV (03:27)
[2019-05-17] MEDS: FUROsemide 10 mg/mL SDV 10mL 60 MG IVP (03:27)
[2019-05-17 04:19] LABS: Basophils # 0.1 10^3/uL (0.0-0.1); Basophils % 0.3 %; Hematocrit 45.9 % (37.0-47.0); Hemoglobin 14.4 g/dL (11.5-15.3); Lymphocytes # 0.7 10^3/uL (0.8-4.8); Lymphocytes % 1.4 %; Mean Corpuscular HGB Conc 31.4 g/dL (30.0-36.0); Mean Corpuscular Hemoglobin 27.7 pg (28.0-34.0); Mean Corpuscular Volume 88.4 fL (81-99); Mean Platelet Volume 11.4 fL (7.4-10.4); Monocytes # 1.5 10^3/uL (0.2-0.9); Monocytes % 3.2 %; Neutrophils # 42.3 10^3/uL (1.8-7.7); Nucleated Red Blood Cells % 0 %; Platelet Count 211 10^3/cmm (130-400); Red Blood Count 5.19 10^6/uL (4.1-5.3)
[2019-05-17 04:28] LABS: White Blood Count 46.5 10^3/uL (4.0-10.0)
[2019-05-17 04:36] LABS: Alanine Aminotransferase 11 U/L (0-33); Albumin Level 3.3 g/dL (3.5-5.2); Alkaline Phosphatase 65 IU/L (35-105); Anion Gap 20.5 (5-19); Aspartate Amino Transferase 28 U/L (0-32); Blood Urea Nitrogen 23 mg/dL (8-23); Calcium 9.1 mg/dL (8.5-10.5); Carbon Dioxide 24 mmol/L (22-29); Chloride 94 mmol/L (98-107); Globulin 4.3 g/dL (1.3-4.6); Glomerular Filtration Rate 49.7 mL/min (90-130); Glucose 254 mg/dL (65-115); Lipase 8 U/L (13-60); Potassium 3.5 mmol/L (3.5-5.1); Sodium 135 mmol/L (136-145); Total Bilirubin 0.7 mg/dL (0.15-1.2); Total Protein 7.6 g/dL (6.6-8.7)
--- NOTE | 2019-05-17 05:10 | PC.NURSE ---
critical lab value. WBC reported of 46.5 with AM labs. notified. per i am not going to order anything right now. I will leave it for . OG checked for patency, green thin substance noted. axilliary temp of 99.9.
--- NOTE | 2019-05-17 05:12 | PM.EVENT ---
Event Note Event Note: Called with patient having increased white count, nearly double what it was yesterday. We will send off a peripheral smear. She is on broad antibiotics. No signs of any diarrhea per nursing staff. Vital signs are otherwise stable and no other acute changes.
[2019-05-17] MEDS: ipratropium-albuterol 3 mL Neb INHALATION ×4 (05:15→21:39)
[2019-05-17] MEDS: levETIRAcetam 500 mg Tablet OG-TUBE (06:01)
[2019-05-17] MEDS: cefepime 2,000 MG in sodium chloride 0.9% (plus) 50 ML 100 MG IV ×2 (06:02→17:34)
[2019-05-17 06:23] LABS: ABG PCO2 40.3 mmHg (35-45); ABG PH Result 7.47 (7.35-7.45); Arterial Blood Gas Hematocrit 49.9 % (37-47); Blood Gas Sample Site Brachial, right; Blood Gas Sample Type Arterial; HCO3 ABG 29.2 mmol/L (22-26); Oxygen Device VENT; PO2 ABG 94.2 mmHg (80.0-100.0)
--- NOTE | 2019-05-17 07:29 | XRR_ITS ---
PROCEDURE INFORMATION: Exam: XR Chest, 1 View Exam date and time: 05/17/2019 6:28 AM Age: 64 years old Clinical indication: Shortness of breath; Additional info: Respiratory failure TECHNIQUE: Imaging protocol: XR of the chest Views: 1 view. COMPARISON: CR XR chest 1V portable [id number] 05/16/2019 2:37 PM FINDINGS: Tubes, catheters and devices: The endotracheal tube is above the level of the lucille. nasogastric tube extends below the diaphragm although the location of the tip not identified as it is outside of the [id number]. Lungs: Mild basilar airspace disease on the right suggested. Follow-up recommended. Pleural space: Unremarkable. No pleural effusion. No pneumothorax. Heart/Mediastinum: Unremarkable. No cardiomegaly. Bones/joints: Unremarkable. XR/XR chest 1V portable [id number] IMPRESSION: Mild basilar airspace disease on the right suggested. Follow-up recommended.
[2019-05-17] MEDS: budesonide 0.5 mg/2 mL Neb INHALATION ×2 (08:00→21:39)
--- NOTE | 2019-05-17 08:11 | PM.PN ---
Subjective Subjective: Interval history: Yaquelin is sedated on the ventilator, but awakens and is coughing some. She had an episode of vomiting around her tube last night. Medications: Reviewed: Yes Vitals/I&O/Wt Last Vital Signs Temp 99.9 F H 05/17/19 06:10 Pulse 99 05/17/19 08:04 Resp 19 H 05/17/19 08:01 BP 123/64 05/17/19 06:10 Pulse Ox 96 05/17/19 08:01 05/16/19 05/17/19 05/17/19 22:59 06:59 14:59 Intake Total 300 / 1350 983.733 / 2333.733 Output Total 950 / 950 750 / 1700 Balance -650 / 400 233.733 / 633.733 Weight last 48 hrs Weight 100.698 kg Physical Exam Narrative: EXAM NARRATIVE: General exam is an awake female, coughing Cardiovascular regular rate and rhythm without murmur Lungs diminished breath sounds bilaterally but clear Abdomen is soft with positive bowel sounds Extremities no cyanosis clubbing or edema Urinary Catheter Management^: Garza: Cath Placed During This Visit: yes Urethral Indwelling: Yes Reason for Continuing Indwelling Catheter: Accurate Measurement of Urinary Output in Critically Ill Patients Urinary Catheter Date of Insertion: 05/16/19 Urinary Catheter Time of Insertion: 14:40 Data : 05/17/19 03:55 05/17/19 03:55 Micro: Microbiology 05/16/19 17:19 Gram Stain - Final Sputum - Endotracheal Tube Aspirate 05/16/19 13:51 Blood Culture - Preliminary Blood SPECIMEN COLLECTED 05/16/19 11:55 Blood Culture - Preliminary Blood SPECIMEN COLLECTED A&P Assessment and plan (1) Respiratory failure: Multifactorial. Most significant is acute diastolic heart failure. Lasix 60 mg IV x1 has been given in the emergency department. Patient has been intubated. Multiple cofactors including obesity hypoventilation, COPD, untreated sleep apnea, etc. had recent hospital stay for similar presentation. Aspiration could have complicated her picture as well. Status: Acute Code(s): J96.90 - Respiratory failure, unspecified, unspecified whether with hypoxia or hypercapnia (2) Acute diastolic heart failure: Discontinue IV fluids Lasix 40 mg IV every 12 hours BMP tomorrow We will repeat echocardiogram secondary to elevated troponin Status: Acute Code(s): I50.31 - Acute diastolic (congestive) heart failure (3) COPD exacerbation: Change Solu-Medrol to 40 mg IV every 24 hours Cefepime. Vancomycin added as well as Flagyl secondary to elevated white blood cell count, aspiration Pulmonary toilet Would benefit from BiPAP at home if she would be compliant with this. Status: Acute Code(s): J44.1 - Chronic obstructive pulmonary disease with (acute) exacerbation (4) Elevated troponin: Secondary to positive delta check echocardiogram. Continue aspirin, statin. Continue DVT prophylaxis Lovenox at this time. Status: Acute Code(s): R79.89 - Other specified abnormal findings of blood chemistry (5) Elevated lipase: Doubt pancreatitis. CT abdomen pelvis did not show pancreatitis. Repeat lipase normal. Status: Acute Code(s): R74.8 - Abnormal levels of other serum enzymes (6) Leukocytosis: Markedly elevated. Likely secondary to aspiration, steroids Status: Acute Code(s): D72.829 - Elevated white blood cell count, unspecified Additional A&P Information Aspiration pneumonitis. Continue cefepime, add vancomycin and Flagyl history of hypercalcemia, appears to be on Miacalcin. Elevated parathyroid hormone level in the past. Calcium level normal this morning Depression/anxiety Hyperlipidemia Hypertension History of severe pulmonary hypertension History of obesity Likely obesity hypoventilation History of seizure disorder, on Keppra Type 2 diabetes Multiple other medical problems as outlined in past medical history Full code Lovenox for DVT prophylaxis Possible extubation tomorrow Attestations Medical Necessity Statement*: Needs continued hospitalization for IV antibiotics, respiratory failure requiring mechanical ventilation Critical Care Time: 34 minutes spent in ICU care managing ventilator, reviewing settings, adjusting medication for aspiration pneumonitis and multiple other comorbidities. Coding Level of Care Code Acute Production Administrator for Kanchan Abdi Diagnoses Respiratory failure J96.90 Acute diastolic heart failure I50.31 COPD exacerbation J44.1 Elevated troponin R79.89 Elevated lipase R74.8 Leukocytosis D72.829
[2019-05-17] MEDS: propofol 1,000 MG/100 ML INJ 9.1 MG IV (08:14)
[2019-05-17] MEDS: gabapentin 300 mg Capsule PO ×3 (09:06→20:45)
[2019-05-17] MEDS: roflumilast 500 mcg Tablet PO (09:06)
[2019-05-17] MEDS: aspirin 325 mg Tablet OG-TUBE (09:06)
[2019-05-17] MEDS: venlafaxine 75 mg Tablet PO (09:06)
[2019-05-17] MEDS: FUROsemide 10 mg/mL SDV 10mL 40 MG IVP ×2 (09:08→20:49)
[2019-05-17] MEDS: metroNIDAZOLE IV 500 MG/100 ML PREMIX 100 MG IV ×3 (09:08→20:46)
[2019-05-17] MEDS: calcitonin nasal 200 unit/spray 3.7 mL Btl 1 SPRAY NASAL (09:10)
[2019-05-17 12:11] LABS: LAB Peripheral Smear Sent for Review
--- NOTE | 2019-05-17 13:05 | PC.PT ---
PT note; Patient remains intubated and sedated at this time, will reattempt tomorrow
[2019-05-17] MEDS: levETIRAcetam 500 mg Tablet 1000 MG PEG-TUBE (17:33)
[2019-05-17] MEDS: enoxaparin 40 mg/0.4 mL Syringe SUBCUT (17:34)
[2019-05-17] MEDS: propofol 1,000 MG/100 ML INJ 12.1 MG IV (19:29)
[2019-05-17] MEDS: atorvastatin 40 mg Tablet 80 MG PO (20:46)
--- NOTE | 2019-05-17 22:03 | PC.CHAP ---
Pastoral Care Encounter/Spiritual Assessment Type of Contact [] Declined dirt bike racer visit [] Patient/Family/Request visit [] Outpatient visit [] Follow-up visit [] Physician referral [] Code/Alert [] Routine visit [] Staff referral [] Actively dying [] Patient sleeping [] Family support [] [] Out of room [] Palliative care [] [X] Receiving care in room [] Pre-surgical visit [] Trauma [] Long length of stay [] ICU visit [] Other: Relational/Emotional Strength [] Patient feels connected with others/family/visitors/staff [] Distress [] Loneliness/isolation [] Abandonment Spirituality of Patient [] Person of Irma [] Attends Scientology of their [place] [] Believes in Prayer [] Reads Bible or Buddhist materials [] There are Spiritual issues to be addressed Tank Calibrator Interventions [] Prayer [] Active listening [] Non-anxious presence [] Spiritual/emotional support [] Crisis/trauma care [] Spiritual counseling [] Bereavement support [] Provided bereavement packet [] Provided Bible/devotional materials [] Provided toy/stuffed animal, coloring book to patient or family member [] Provided Communion [] Anointing/[place] [] Salvation [] Completed spiritual assessment [] Other: Impact on Illness or Injury [] Angry [] Fearful [] Anxious [] Often cries [] Exhaustion [] Unable to work [] Unable to attend orthodoxy [] Unable to walk/stand [] Unable to read [] Unable to drive [] Unable to eat/drink [] Unable to sleep [] Unable to be with family [] Patient intubated [] Other: SummaryWAS TIED UP WITH NURSES DOING SOME SORT OF TREATMENT, NEED FOLLOWUP NEXT DAY Time spent with patient
--- NOTE | 2019-05-17 23:05 | PC.NURSE ---
Medication administration Vancomycin was not able to scan due to no barcode from [facility]. nurse broommaking supervisor made aware of error.
[2019-05-18] VITALS (125 sets, daily range): BP systolic 89–136; BP diastolic 50–90; PULSE 85–106; RESP 11–24; TEMP 36.8–37.1; O2SAT 91–100
[2019-05-18] MEDS: propofol 1,000 MG/100 ML INJ 18.1 MG IV ×5 (00:05→20:33)
--- NOTE | 2019-05-18 00:18 | PC.NURSE ---
sedation vacation patient given a sedation vacation. neuro intact.
[2019-05-18] MEDS: metroNIDAZOLE IV 500 MG/100 ML PREMIX 100 MG IV (02:33)
[2019-05-18 04:49] LABS: Basophils # 0.1 10^3/uL (0.0-0.1); Basophils % 0.2 %; Hematocrit 45.8 % (37.0-47.0); Hemoglobin 13.9 g/dL (11.5-15.3); Lymphocytes # 1.4 10^3/uL (0.8-4.8); Lymphocytes % 3.5 %; Mean Corpuscular HGB Conc 30.3 g/dL (30.0-36.0); Mean Corpuscular Hemoglobin 27.4 pg (28.0-34.0); Mean Corpuscular Volume 90.3 fL (81-99); Mean Platelet Volume 11.8 fL (7.4-10.4); Monocytes # 2.6 10^3/uL (0.2-0.9); Monocytes % 6.5 %; Neutrophils # 34.5 10^3/uL (1.8-7.7); Neutrophils % 85.9 %; Nucleated Red Blood Cells % 0 %; Platelet Count 187 10^3/cmm (130-400); Red Blood Count 5.07 10^6/uL (4.1-5.3); Red Cell Distribution Width 16.5 % (12.1-15.1)
[2019-05-18 05:04] LABS: Alkaline Phosphatase 77 IU/L (35-105); Blood Urea Nitrogen 30 mg/dL (8-23); Calcium 8.2 mg/dL (8.5-10.5); Carbon Dioxide 25 mmol/L (22-29); Chloride 94 mmol/L (98-107); Globulin 4.8 g/dL (1.3-4.6); Glomerular Filtration Rate 44.9 mL/min (90-130); Glucose 187 mg/dL (65-115); Sodium 137 mmol/L (136-145); Total Bilirubin 0.8 mg/dL (0.15-1.2); Total Protein 7.8 g/dL (6.6-8.7)
[2019-05-18 05:12] LABS: White Blood Count 40.2 10^3/uL (4.0-10.0)
[2019-05-18 05:14] LABS: Alanine Aminotransferase 15 U/L (0-33); Anion Gap 21.8 (5-19); Aspartate Amino Transferase 43 U/L (0-32); Potassium 3.8 mmol/L (3.5-5.1)
--- NOTE | 2019-05-18 05:18 | PC.NURSE ---
Critical lab value notified of critical value of WBC of 40.2. He acknowledged critical.
[2019-05-18] MEDS: ipratropium-albuterol 3 mL Neb INHALATION ×4 (05:26→22:12)
[2019-05-18 06:06] LABS: ABG PCO2 42.3 mmHg (35-45); ABG PH Result 7.43 (7.35-7.45); Arterial Blood Gas Hematocrit 39.5 % (37-47); Base Excess ABG 3.6 mmol/L (-2.0-2.0); Blood Gas Allen Test Pos; Blood Gas Sample Site Radial, right; Blood Gas Sample Type Arterial; HCO3 ABG 28.3 mmol/L (22-26); Oxygen Device VENT; PO2 ABG 95.9 mmHg (80.0-100.0)
[2019-05-18] MEDS: cefepime 2,000 MG in sodium chloride 0.9% (plus) 50 ML 100 MG IV ×2 (06:18→18:32)
[2019-05-18 07:31] LABS: Glucose Point of Care 266 mg/dL (70-110)
[2019-05-18 07:31] LABS: Glucose Point of Care 196 mg/dL (70-110)
[2019-05-18 07:31] LABS: Glucose Point of Care 247 mg/dL (70-110)
[2019-05-18] MEDS: FUROsemide 10 mg/mL SDV 10mL 40 MG IVP ×2 (07:35→20:32)
[2019-05-18] MEDS: metroNIDAZOLE IV 500 MG/100 ML PREMIX 150 MG IV (07:35)
--- NOTE | 2019-05-18 07:59 | XRR_ITS ---
PROCEDURE INFORMATION: Exam: XR Chest, 1 View Exam date and time: 05/18/2019 6:09 AM Age: 64 years old Clinical indication: Shortness of breath; Additional info: Respiratory failure TECHNIQUE: Imaging protocol: XR of the chest Views: 1 view. COMPARISON: CR XR chest 1V portable [id number] 05/17/2019 6:09 AM FINDINGS: Tubes, catheters and devices: Endotracheal tube is slightly above the lucille. nasogastric tube extends below the diaphragm although the location of the tip not identified as it is outside of the [id number]. Lungs: Mild airspace disease within the left lung base. Infiltrate and/or atelectasis. Pleural space: Unremarkable. No pleural effusion. No pneumothorax. Heart/Mediastinum: Cardiomegaly. Bones/joints: Unremarkable. XR/XR chest 1V portable [id number] IMPRESSION: Cardiomegaly. Mild edema. Mild airspace disease within the left lung base. Infiltrate and/or atelectasis.
[2019-05-18] MEDS: roflumilast 500 mcg Tablet PO (08:49)
[2019-05-18] MEDS: aspirin 325 mg Tablet OG-TUBE (08:49)
[2019-05-18] MEDS: venlafaxine 75 mg Tablet PO (08:49)
[2019-05-18] MEDS: gabapentin 300 mg Capsule PO ×3 (08:49→20:31)
[2019-05-18] MEDS: calcitonin nasal 200 unit/spray 3.7 mL Btl 1 SPRAY NASAL (08:52)
[2019-05-18] MEDS: budesonide 0.5 mg/2 mL Neb INHALATION ×2 (09:08→22:12)
[2019-05-18 10:10] LABS: Vancomycin Trough 29.9 ug/mL (10-15)
--- NOTE | 2019-05-18 14:08 | PM.PN ---
Subjective Subjective: Interval history: Yaquelin is sedated on the ventilator. Nurses note no new concerns. Medications: Reviewed: Yes Vitals/I&O/Wt Last Vital Signs Temp 98.4 F 05/18/19 06:20 Pulse 89 05/18/19 12:30 Resp 11 L 05/18/19 13:37 BP 105/63 05/18/19 12:30 Pulse Ox 95 05/18/19 12:30 05/17/19 05/18/19 05/18/19 22:59 06:59 14:59 Intake Total 341.598 / 1394.873 513.805 / 1908.678 85.07 / 85.07 Output Total 950 / 950 350 / 1300 Balance -608.402 / 444.873 163.805 / 608.678 85.07 / 85.07 Physical Exam Narrative: EXAM NARRATIVE: General exam sedated on the ventilator Cardiovascular regular rate and rhythm without murmur Lungs diminished breath sounds bilaterally but clear Abdomen is soft with positive bowel sounds Extremities no cyanosis clubbing or edema Urinary Catheter Management^: Garza: Cath Placed During This Visit: yes Urethral Indwelling: Yes Reason for Continuing Indwelling Catheter: Accurate Measurement of Urinary Output in Critically Ill Patients Urinary Catheter Date of Insertion: 05/16/19 Urinary Catheter Time of Insertion: 14:40 Data : 05/18/19 03:58 05/18/19 03:58 Micro: Microbiology 05/16/19 13:51 Blood Culture - Preliminary Blood Strep species, alpha hemolytic 05/16/19 11:55 Blood Culture - Preliminary Blood Strep species, alpha hemolytic 05/16/19 17:19 Gram Stain - Final Sputum - Endotracheal Tube Aspirate Sputum Culture - Preliminary 05/18/19 03:53 Blood Culture - Preliminary Blood SPECIMEN COLLECTED 05/18/19 03:49 Blood Culture - Preliminary Blood SPECIMEN COLLECTED A&P Assessment and plan (1) Respiratory failure: Multifactorial. Most significant is acute diastolic heart failure. Lasix 60 mg IV x1 has been given in the emergency department. Patient has been intubated. Multiple cofactors including obesity hypoventilation, COPD, untreated sleep apnea, etc. had recent hospital stay for similar presentation. Aspiration could have complicated her picture as well. She has improved, and diuresed somewhat. She likely will be ready for extubation soon, and may need extubated to BiPAP. However, with positive blood cultures showing alpha hemolytic strep 4/4 bottles and history of valvular heart disease she will need a OMAR. Status: Acute Code(s): J96.90 - Respiratory failure, unspecified, unspecified whether with hypoxia or hypercapnia (2) Acute diastolic heart failure: Discontinue IV fluids Lasix 40 mg IV every 12 hours Hopefully can be extubated tomorrow after OMAR Status: Acute Code(s): I50.31 - Acute diastolic (congestive) heart failure (3) COPD exacerbation: Continue Solu-Medrol Cefepime. Vancomycin. Pulmonary toilet Would benefit from BiPAP at home if she would be compliant with this. Status: Acute Code(s): J44.1 - Chronic obstructive pulmonary disease with (acute) exacerbation (4) Elevated troponin: Secondary to positive delta check echocardiogram. This demonstrated EF of 50 to 55%, moderate to severe mitral regurgitation. Continue aspirin, statin. Continue DVT prophylaxis Lovenox at this time. Status: Acute Code(s): R79.89 - Other specified abnormal findings of blood chemistry (5) Elevated lipase: Doubt pancreatitis. CT abdomen pelvis did not show pancreatitis. Repeat lipase normal. Status: Acute Code(s): R74.8 - Abnormal levels of other serum enzymes (6) Leukocytosis: Markedly elevated. Likely secondary to bacteremia, steroids Status: Acute Code(s): D72.829 - Elevated white blood cell count, unspecified Additional A&P Information Bacteremia, alphahemolytic strep. Awaiting ID and sensitivities. On vancomycin. Aspiration pneumonitis. Continue cefepime, add vancomycin and Flagyl history of hypercalcemia, appears to be on Miacalcin. Elevated parathyroid hormone level in the past. Calcium level normal this morning Depression/anxiety Hyperlipidemia Hypertension History of severe pulmonary hypertension History of obesity Likely obesity hypoventilation History of seizure disorder, on Keppra Type 2 diabetes Multiple other medical problems as outlined in past medical history Full code Lovenox for DVT prophylaxis Possible extubation tomorrow, after OMAR Attestations Medical Necessity Statement*: Needs continued hospital stay, for evaluation of bacteremia, respiratory failure requiring mechanical ventilation. 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
--- NOTE | 2019-05-18 16:14 | PC.PT ---
PT note; patient's nurse JOSE ELIAS recommends hold PT today; patient remains intubated and sedated, will follow
[2019-05-18 17:57] LABS: Glucose Point of Care 243 mg/dL (70-110)
[2019-05-18 17:57] LABS: Glucose Point of Care 274 mg/dL (70-110)
[2019-05-18 17:57] LABS: Glucose Point of Care 284 mg/dL (70-110)
[2019-05-18 17:57] LABS: Glucose Point of Care 246 mg/dL (70-110)
[2019-05-18 17:57] LABS: Glucose Point of Care 189 mg/dL (70-110)
[2019-05-18] MEDS: enoxaparin 40 mg/0.4 mL Syringe SUBCUT (18:32)
[2019-05-18] MEDS: levETIRAcetam 500 mg Tablet 1000 MG PEG-TUBE (18:32)
--- NOTE | 2019-05-18 19:01 | PM.CONSULT ---
Providers/Reason For Consult Consulting Physican/Specialty*: ANTONIO Adler MD/cardiology Reason for Consult*: Patient with a suspected endocarditis, for OMAR Attending Physician: Yariel Leija MD Primary Care Provider: Tashi Acosta MD History of Present Illness History of Present Illness Yaquelin Loera is a 64 year old female, is admitted to hospital through the emergency room where she presented with complaints of headache, vomiting and shortness of breath. She apparently had some impending symptoms of respiratory failure. For that reason, she got intubated in the emergency room. She is admitted to the ICU for further evaluation management. Her blood culture grew gram-positive cocci, coagulase positive. The organism ID is pending Patient is not able to give any history. She is intubated and sedated. She has a history of cardiomyopathy, congestive heart failure, mitral regurgitation and pulmonary hypertension. She lives in a skilled nursing. No family is available for details. Because of the valvular heart disease and the bacteremia, consult is requested for considering a OMRA. Patient has no documented history for any upper GI bleed. Review of Systems Narrative: CONSTITUTIONAL: No fever or chills?. EYES: Was complaining of headache ENT: No specific symptoms recorded CARDIOVASCULAR: As mentioned above. RESPIRATORY: Shortness of breath as mentioned above GASTROINTESTINAL: Vomiting as mentioned above GENITOURINARY: No dysuria or hematuria. INTEGUMENTARY: No skin rashes or history of skin cancer. NEURO: Headache as mentioned above PSYCHIATRIC: No history of psychosis or major depression. HEMATOLOGIC: No bleeding disorders or significant anemia. ENDOCRINE: Details not available MUSCULOSKELETAL: Had CT evidence of compression fracture ALLERGY/IMMUNOLOGY: As mentioned above. Meds/Allergies Home Medications and Allergies Home Medications Medication Instructions Recorded Confirmed Type Actos See Rx Instructions .ROUTE .COMPLEX 05/16/19 05/16/19 History Ozempic See Rx Instructions .ROUTE .COMPLEX 05/16/19 05/16/19 History acetaminophen [Tylenol Extra 1,000 mg PO Q4H PRN 05/16/19 05/16/19 History Strength] bisacodyl [Dulcolax (bisacodyl)] 5 mg PO DAILY PRN 05/16/19 05/16/19 History bisacodyl [Dulcolax (bisacodyl)] See Rx Instructions .ROUTE .COMPLEX 05/16/19 05/16/19 History calcitonin (salmon) See Rx Instructions .ROUTE .COMPLEX 05/16/19 05/16/19 History carbamide peroxide [Debrox] See Rx Instructions .ROUTE .COMPLEX 05/16/19 05/16/19 History cholecalciferol (vitamin D3) 25 mcg PO DAILY 05/16/19 05/16/19 History [Vitamin D3] fluticasone furoate [Flonase 1 spray INTRANASAL DAILY 05/16/19 05/16/19 History Sensimist] [id number] See Rx Instructions .ROUTE .COMPLEX 05/16/19 05/16/19 History [Trelegy Ellipta] furosemide [Lasix] 40 mg PO DAILY 05/16/19 05/16/19 History gabapentin 300 mg PO TID 05/16/19 05/16/19 History hydroxyzine pamoate [Vistaril] See Rx Instructions .ROUTE .COMPLEX 05/16/19 05/16/19 History insulin aspart U-100 [Novolog See Rx Instructions .ROUTE .COMPLEX 05/16/19 05/16/19 History U-100 Insulin aspart] insulin degludec [Tresiba 10 unit SUBCUT BEDTIME 05/16/19 05/16/19 History FlexTouch U-100] ipratropium-albuterol 3 ml INHALATION Q4H PRN 05/16/19 05/16/19 History levetiracetam See Rx Instructions .ROUTE .COMPLEX 05/16/19 05/16/19 History losartan 25 mg PO DAILY 05/16/19 05/16/19 History magnesium hydroxide [Milk of See Rx Instructions .ROUTE .COMPLEX 05/16/19 05/16/19 History Magnesia] melatonin 5 mg PO BEDTIME 05/16/19 05/16/19 History nicotine 1 patch TRANSDERMAL Q24H 05/16/19 05/16/19 History nystatin 1 applic TOPICAL BID 05/16/19 05/16/19 History ondansetron 4 mg PO Q4H PRN 05/16/19 05/16/19 History roflumilast [Daliresp] 500 mcg PO DAILY 05/16/19 05/16/19 History rosuvastatin 40 mg PO BEDTIME 05/16/19 05/16/19 History sitagliptin [Januvia] 100 mg PO DAILY 05/16/19 05/16/19 History sodium phosphates [Fleet Enema] See Rx Instructions .ROUTE .COMPLEX 05/16/19 05/16/19 History venlafaxine 75 mg PO DAILY 05/16/19 05/16/19 History Allergies Allergy/AdvReac Type Severity Reaction Status Date / Time Penicillins Allergy ALGY-Anaphy Verified 05/16/19 11:16 laxis Sulfa (Sulfonamide Allergy ALGY-Anaphy Verified 05/16/19 11:16 Antibiotics) laxis Current Medications Current Medications Generic Name Dose Route Start Last Admin Trade Name Freq PRN Reason Stop Dose Admin Albuterol/Ipratropium 3 ml 05/16/19 21:00 05/18/19 16:14 Duoneb INHALATION 3 ml Q6H.RESPIRATORY MARCO Administration Aspirin 325 mg 05/17/19 09:00 05/18/19 08:49 Aspirin OG-TUBE 325 mg DAILY MARCO Administration Atorvastatin Calcium 80 mg 05/16/19 21:00 05/17/19 20:46 Lipitor PO 80 mg BEDTIME MARCO Administration Budesonide 0.5 mg 05/16/19 20:00 05/18/19 09:08 Pulmicort INHALATION 0.5 mg BID.RESPIRATORY MARCO Administration Calcitonin [place] 1 spray 05/17/19 09:00 05/18/19 08:52 Miacalcin [place] 1 spray DAILY MARCO Administration Enoxaparin Sodium 40 mg 05/16/19 17:32 05/18/19 18:32 Lovenox SUBCUT 40 mg Q24H MARCO Administration Furosemide 40 mg 05/17/19 08:09 05/18/19 07:35 Lasix IVP 40 mg Q12H MARCO Administration Gabapentin 300 mg 05/16/19 21:00 05/18/19 15:49 Neurontin PO 300 mg TID MARCO Administration Propofol 1,000 mg in 100 mls @ 0 mls/hr 05/16/19 14:45 05/18/19 15:49 Diprivan IV 30 mcg/kg/min .Q0M MARCO 18.1 mls/hr Administration Protocol Per Protocol Cefepime HCl 2,000 mg/ Sodium 50 mls @ 100 mls/hr 05/16/19 18:30 05/18/19 18:32 Chloride IV 100 mls/hr Q12H MARCO Administration Protocol Insulin Aspart 0 unit 05/16/19 18:00 05/18/19 18:33 Novolog SUBCUT 6 unit WM&BEDTIME MARCO Administration Protocol Levetiracetam 500 mg 05/17/19 06:00 05/17/19 06:01 Keppra OG-TUBE 500 mg QAM MARCO Administration Levetiracetam 1,000 mg 05/16/19 18:00 05/18/19 18:32 Keppra PEG-TUBE 1,000 mg QPM MARCO Administration Methylprednisolone Sodium Succinate 40 mg 05/17/19 08:15 05/18/19 07:37 Solu-Medrol IVP 40 mg Q24H MARCO Administration Roflumilast 500 mcg 05/17/19 09:00 05/18/19 08:49 Daliresp PO 500 mcg DAILY MARCO Administration Venlafaxine HCl 75 mg 05/17/19 09:00 05/18/19 08:49 Effexor PO 75 mg DAILY MARCO Administration PFSH Acute PFSH: Medical History Cataract fragments in eye following surgery COPD (chronic obstructive pulmonary disease) Decompensated COPD with exacerbation (chronic obstructive pulmonary disease) Depression Diastolic congestive heart failure Hypercalcemia Elevated parathyroid hormone level in the past, 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 Hyperlipidemia Hypertension Moderate to severe mitral regurgitation Nonischemic cardiomyopathy Obesity Obstructive sleep apnea Pulmonary hypertension Seizure disorder Tricuspid regurgitation Type 2 diabetes mellitus Surgical History H/O mitral valve replacement History of Ulnar nerve compression Family History Other CAD (coronary artery disease) Social History Smoking and tobacco status: current every day smoker Alcohol intake: never Vitals/I&O/Wt Last Vital Signs Temp 98.4 F 05/18/19 06:20 Pulse 96 05/18/19 18:30 Resp 12 05/18/19 17:36 BP 97/59 05/18/19 18:30 Pulse Ox 96 05/18/19 18:30 05/18/19 05/18/19 05/18/19 06:59 14:59 22:59 Intake Total 563.805 / 1958.678 85.07 / 85.07 100 / 185.07 Output Total 350 / 1300 1000 / 1000 Balance 213.805 / 658.678 85.07 / 85.07 -900 / -814.93 Physical Exam Narrative: EXAM NARRATIVE: GENERAL: Patient is intubated and sedated HEENT: No significant pallor, icterus or lymphadenopathy. The pupils are reactant to light. Oral cavity: There are no mucous membrane lesions. Funduscopic examination: Fundus is not visualized NECK: Trachea appears to be central. No masses noted. No JVD or thyromegaly appreciated. No carotid bruit. RESPIRATORY: Breath sounds are heard bilaterally. Occasional coarse crackles. BREASTS: Deferred. HEART: PMI not palpated. Systolic murmur grade 3/6 in the left sternal border. No diastolic murmurs. ABDOMEN: Abdomen is obese no vessel pulsations or distention. No tenderness. No organomegaly appreciated. No abdominal bruit. Bowel sounds are normally heard. : Deferred. RECTAL: Deferred. LYMPHATIC: No lymphadenopathy noted in the neck. EXTREMITIES: No edema or cyanosis. MUSCULOSKELETAL: No acute joint deformities or swelling SKIN: There are no significant skin rashes NEUROPSYCHIATRIC: No focal motor deficits Urinary Catheter Management^: Garza: Cath Placed During This Visit: yes Urethral Indwelling: Yes Reason for Continuing Indwelling Catheter: Accurate Measurement of Urinary Output in Critically Ill Patients Urinary Catheter Date of Insertion: 05/16/19 Urinary Catheter Time of Insertion: 14:40 Data Micro: Micro: Microbiology 05/16/19 13:51 Blood Culture - Pr eliminary Blood Strep species, alpha hemolytic 05/16/19 11:55 Blood Culture - Pr eliminary Blood Strep species, alpha hemolytic 05/16/19 17:19 Gram Stain - Final Sputum - Endotrac heal Tube Aspirate Sputum Culture - P reliminary 05/18/19 03:53 Blood Culture - Pr eliminary Blood SPECIMEN [facility] 05/18/19 03:49 Blood Culture - Pr eliminary Blood SPECIMEN [facility] Imaging^: Echo: My impression: The echocardiogram from 05/17/2019 There is relative hypokinesia of the basal and mid septum and the anteroseptal segments. Overall ejection fraction around 50 to 55%. Thickened mitral valve. Mild mitral annular calcification. Moderate-severe mitral valve regurgitation. Mildly biatrial enlargement Thickened aortic valve. Trace aortic valve regurgitation. There is no pericardial effusion. There are no intracardiac masses. Technically very limited study Comparison with the previous study from 04/28/2018 is difficult because of the difference in the technical quality. EKG^: EKG 1: My Interpretation: Sinus tachycardia with PVCs. Nonspecific T wave changes. Poor R wave progression. Other Data: Other data: ECHOCARDIOGRAPHY, COMPLETE ([id number]) 04/23/2017 CONCLUSIONS Normal left ventricular cavity size. Normal left ventricular wall thickness. Mildly decreased left ventricular systolic function. Grade I/IV diastolic dysfunction (abnormal relaxation filling pattern), normal to mildly elevated filling pressures. Left ventricular ejection fraction is estimated at 45-50 % . Normal right ventricular size and systolic function. Severe pulmonary hypertension, RVSP 89.3 mmHg. Structurally normal mitral valve. Mild mitral valve regurgitation. No mitral valve prolapse. Study compared to prior echocardiogram of 01/27/15; the left ventricular function appears to have diminished somewhat. The patient is also apparently developed more significant pulmonary hypertension. The accuracy of this easurement is in question due to the difficulty in assessing the tricuspid regurgitation envelope. I do not see any evidence of mitral valve prolapse though this is a relatively poor quality study. LEXISCAN SPECT CARDIAC STRESS TEST ([id number]) 08/27/2017 1. No significant EKG changes with the LexiScan infusion 2. No LexiScan induced chest pain or cardiac arrhythmia 3. Normal blood pressure and heart rate response 1. Myocardial perfusion imaging revealing areas of persistent decreased tracer uptake in the anterior wall and inferior wall regions, suggestive of myocardial scarring in the distribution of the left anterior descending artery/right coronary artery. #2. Diminished LV ejection fraction of 40%. #3. Wall motion abnormalities as mentioned above. A&P Assessment and plan (1) Streptococcal bacteremia: The source of infection is not clear at this time. Patient has possible left lower lobe infiltrate in the chest x-ray. Because of the mitral valve disease, possibility of endocarditis causing this is a consideration. The transthoracic echocardiogram was a suboptimal quality. For further evaluation, a OMAR would be appropriate. Status: Acute Code(s): R78.81 - Bacteremia; B95.5 - Unspecified streptococcus as the cause of diseases classified elsewhere (2) Moderate to severe mitral regurgitation: Patient is known to have mitral regurgitation and was found to be moderate by echocardiogram in 2018. Currently it appears to be getting worse. No history of rheumatic fever. Status: Acute Code(s): I34.0 - Nonrheumatic mitral (valve) insufficiency (3) Decompensated COPD with exacerbation (chronic obstructive pulmonary disease): Patient has a history of recurrent respiratory infection. Possible pneumonia could be the contributing factor. She is on multiple antibiotics. Status: Acute Code(s): J44.1 - Chronic obstructive pulmonary disease with (acute) exacerbation (4) Nonischemic cardiomyopathy: Patient has a history of nonischemic cardiomyopathy .she had a myocardial perfusion imaging 2015 which was unremarkable. Her LV ejection fraction was around 45 to 50% at that time, based on the echocardiogram.. I may get a BNP to evaluate for any heart failure Status: Acute Code(s): I42.8 - Other cardiomyopathies Additional A&P Information At this point, there is no contraindication for the OMAR. To rule out endocarditis, would be appropriate. I may discuss this with the caregiver in the morning. 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
[2019-05-18 19:54] LABS: Glucose Point of Care 211 mg/dL (70-110)
[2019-05-18 19:54] LABS: Glucose Point of Care 210 mg/dL (70-110)
[2019-05-18] MEDS: atorvastatin 40 mg Tablet 80 MG PO (20:32)
[2019-05-18 20:43] LABS: NT Pro B Type Natriuretic Pept 798 pg/mL (0-125)
[2019-05-19] VITALS (44 sets, daily range): BP systolic 91–137; BP diastolic 53–83; PULSE 76–96; RESP 10–22; TEMP 36.6–36.9; O2SAT 91–98
[2019-05-19] MEDS: propofol 1,000 MG/100 ML INJ 18.1 MG IV ×3 (01:38→07:53)
[2019-05-19] MEDS: ipratropium-albuterol 3 mL Neb INHALATION ×4 (03:50→20:59)
[2019-05-19 05:12] LABS: Basophils # 0.1 10^3/uL (0.0-0.1); Basophils % 0.2 %; Hematocrit 43.9 % (37.0-47.0); Hemoglobin 13.6 g/dL (11.5-15.3); Lymphocytes # 1.5 10^3/uL (0.8-4.8); Lymphocytes % 4.3 %; Mean Corpuscular Hemoglobin 27.3 pg (28.0-34.0); Mean Corpuscular Volume 88.2 fL (81-99); Mean Platelet Volume 11.1 fL (7.4-10.4); Monocytes # 2.1 10^3/uL (0.2-0.9); Monocytes % 6.3 %; Neutrophils # 29.2 10^3/uL (1.8-7.7); Neutrophils % 86.2 %; Nucleated Red Blood Cells % 0 %; Platelet Count 190 10^3/cmm (130-400); Red Blood Count 4.98 10^6/uL (4.1-5.3)
[2019-05-19 05:26] LABS: White Blood Count 33.9 10^3/uL (4.0-10.0)
[2019-05-19 05:42] LABS: Alanine Aminotransferase 14 U/L (0-33); Albumin Level 3.2 g/dL (3.5-5.2); Alkaline Phosphatase 90 IU/L (35-105); Aspartate Amino Transferase 29 U/L (0-32); Blood Urea Nitrogen 43 mg/dL (8-23); Carbon Dioxide 26 mmol/L (22-29); Chloride 96 mmol/L (98-107); Globulin 4.3 g/dL (1.3-4.6); Glomerular Filtration Rate 37.6 mL/min (90-130); Glucose 161 mg/dL (65-115); Sodium 141 mmol/L (136-145); Total Bilirubin 0.5 mg/dL (0.15-1.2); Total Protein 7.5 g/dL (6.6-8.7)
[2019-05-19] MEDS: cefepime 2,000 MG in sodium chloride 0.9% (plus) 50 ML 100 MG IV (05:48)
[2019-05-19] MEDS: levETIRAcetam 500 mg Tablet OG-TUBE (05:50)
[2019-05-19 06:14] LABS: Glucose Point of Care 172 mg/dL (70-110)
[2019-05-19 06:18] LABS: ABG PH Result 7.43 (7.35-7.45); Arterial Blood Gas Hematocrit 53.2 % (37-47); Base Excess ABG 4.3 mmol/L (-2.0-2.0); Blood Gas Allen Test Pos; Blood Gas Sample Site Radial, right; Blood Gas Sample Type Arterial; HCO3 ABG 29.4 mmol/L (22-26); Oxygen Device VENT
--- NOTE | 2019-05-19 07:19 | XR_ITS ---
WS: [id number] XR chest 1V portable [id number] REASON FOR EXAM: resp failure FINDINGS: Endotracheal tube appears to be low in the trachea just above the lucille. A feeding tube is seen in the region of the stomach the lower tube is poorly seen. There is mild congestion bilaterally most likely edema. The cardiac silhouette is borderline enlarged. XR/XR chest 1V portable [id number] IMPRESSION: The endotracheal tube is low in the trachea just above the lucille. Feeding tube is seen in the region of the stomach. There is mild pulmonary congestion most likely edema bilaterally.
[2019-05-19 07:24] LABS: Glucose Point of Care 161 mg/dL (70-110)
[2019-05-19] MEDS: FUROsemide 10 mg/mL SDV 10mL 40 MG IVP ×2 (07:52→22:28)
[2019-05-19] MEDS: aspirin 325 mg Tablet OG-TUBE (08:21)
[2019-05-19] MEDS: roflumilast 500 mcg Tablet PO (08:21)
[2019-05-19] MEDS: venlafaxine 75 mg Tablet PO (08:21)
[2019-05-19] MEDS: calcitonin nasal 200 unit/spray 3.7 mL Btl 1 SPRAY NASAL (08:21)
[2019-05-19] MEDS: gabapentin 300 mg Capsule PO ×3 (08:21→22:28)
--- NOTE | 2019-05-19 08:30 | USCV_ITS ---
Yaquelin Loera Age: 64 Gender: F : 1955 Exam Date: 05/19/2019 08:56 Ordering Phys: Yariel Leija MD Technologist: Hugo Saeed Exam Location: [facility] – [place] Indication: MV BP: / HR: Rhythm: Sinus Technical Quality: MEASUREMENTS (Male / Female) Normal Values Medications IV propofol by the anesthesia service . Please see the report Complications None Proc. Components The procedure was done in the ICU. The OMAR probe was passed into the posterior pharynx , mid- esophagus, distal esophagus, and gastric fundus. OMAR was performed at multiple levels. FINDINGS Left Ventricle Appears to be mildly dilated with slightly diminished ejection fraction of 45 to 50% Right Ventricle Possibly of normal size ejection fraction Right Atrium Mildly dilated Left Atrium Mildly dilated LA Appendage Normal left atrial appendage. No reversal of flow in the pulmonary veins IA Septum Appears to be intact with no evidence of any ASD, patent foramen ovale by color flow Doppler examination or by saline contrast injection Mitral Valve Moderate mitral valve regurgitation. Aortic Valve Minimally thickened with no significant stenosis or ureteral lesions Tricuspid Valve Mild TR Pulmonic Valve No gross abnormalities noted Pericardium No effusion Aorta Aortic root appears to be of normal size. Mild diffuse plaques were noted in the descending aorta CONCLUSIONS Appears to be mildly dilated with slightly diminished ejection fraction of 45 to 50%. Moderate mitral valve regurgitation. Mild tricuspid regurgitation No masses or vegetations were noted on the valves. No intracardiac masses Thickened aortic valve Mild diffuse plaques in the descending aorta Technically somewhat limited study No similar previous studies are available for comparison Dr Jay Adler MD [facility] (Electronically Signed) Final Date: 19 May 2019 13:58 S
--- NOTE | 2019-05-19 08:42 | P.ANESASSM_ITS ---
Pre-Anesthetic Assessment Pre-Anesthetic Assessment: Height/Weight: Height 1.47 m Weight 100.698 kg Temp Pulse Resp BP Pulse Ox 98.4 F 91 14 91/59 96 05/19/19 05:37 05/19/19 05:37 05/19/19 05:37 05/19/19 05:37 05/19/19 05:37 Preop Diagnosis: CHF Proposed Procedure: OMAR Was Beta Alvaro taken within 24 hours: N/A Social: Social History: Tobacco Exam: Additional Exam Findings (including area of procedure): Sedated and Intubated in the ICU Airway: Additional comments: XIMENA Pulmonary: Pulmonary: COPD and [place] Comments: ARF CV/HEM: CV/HEM: CAD and CHF Hepatic: Hepatic: None reported GI: GI: None reported Metabolic: Metabolic: DM Musc/skel: Musc/skel: None reported Anesthetic Plan: ASA status: 4 Anesthesia: General (intubated and sedated already in ICU) Risk of > 500 ml blood loss (7ml/kg in children): No Meds/Allergies Current Medications: Current Medications Generic Name Dose Route Start Last Admin Trade Name Freq PRN Reason Stop Dose Admin Albuterol/Ipratrop ium 3 ml 05/16/19 21:00 05/19/19 03:50 Duoneb INHALATION 3 ml Q6H.RESPIRATORY S CH Administration Aspirin 325 mg 05/17/19 09:00 05/19/19 08:21 Aspirin OG-TUBE 325 mg DAILY MARCO Administration Atorvastatin Calci um 80 mg 05/16/19 21:00 05/18/19 20:32 Lipitor PO 80 mg BEDTIME MARCO Administration Budesonide 0.5 mg 05/16/19 20:00 05/18/19 22:12 Pulmicort INHALATION 0.5 mg BID.RESPIRATORY S CH Administration Calcitonin [place] 1 spray 05/17/19 09:00 05/19/19 08:21 Miacalcin NASAL 1 spray DAILY MARCO Administration Enoxaparin Sodium 40 mg 05/16/19 17:32 05/18/19 18:32 Lovenox SUBCUT 40 mg Q24H MARCO Administration Furosemide 40 mg 05/17/19 08:09 05/19/19 07:52 Lasix IVP 40 mg Q12H MARCO Administration Gabapentin 300 mg 05/16/19 21:00 05/19/19 08:21 Neurontin PO 300 mg TID MARCO Administration Propofol 1,000 mg in 100 m ls @ 0 mls/hr 05/16/19 14:45 05/19/19 07:53 Diprivan IV 30 mcg/kg/min .Q0M MARCO 18.1 mls/hr Administration Protocol Per Protocol Cefepime HCl 2,000 mg/ Sodium 50 mls @ 100 mls/ hr 05/16/19 18:30 05/19/19 05:48 Chloride IV 100 mls/hr Q12H MARCO Administration Protocol Insulin Aspart 0 unit 05/16/19 18:00 05/19/19 07:53 Novolog SUBCUT 4 unit WM&BEDTIME MARCO Administration Protocol Levetiracetam 500 mg 05/17/19 06:00 05/19/19 05:50 Keppra OG-TUBE 500 mg QAM MARCO Administration Levetiracetam 1,000 mg 05/16/19 18:00 05/18/19 18:32 Keppra PEG-TUBE 1,000 mg QPM MARCO Administration Methylprednisolone Sodium Succinate 40 mg 05/17/19 08:15 05/19/19 07:53 Solu-Medrol IVP 40 mg Q24H MARCO Administration Roflumilast 500 mcg 05/17/19 09:00 05/19/19 08:21 Daliresp PO 500 mcg DAILY MARCO Administration Venlafaxine HCl 75 mg 05/17/19 09:00 05/19/19 08:21 Effexor PO 75 mg DAILY MARCO Administration PFSH Anesthesia PFSH: Medical History Cataract fragments in eye following surgery COPD (chronic obstructive pulmonary disease) Decompensated COPD with exacerbation (chronic obstructive pulmonary disease) Depression Diastolic congestive heart failure Hypercalcemia Elevated parathyroid hormone level in the past, 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 Hyperlipidemia Hypertension Moderate to severe mitral regurgitation Nonischemic cardiomyopathy Obesity Obstructive sleep apnea Pulmonary hypertension Seizure disorder Tricuspid regurgitation Type 2 diabetes mellitus Surgical History H/O mitral valve replacement History of Ulnar nerve compression Family History Other CAD (coronary artery disease) Social History Smoking and tobacco status: current every day smoker Alcohol intake: never Data Anesthesia CBC & Chem 7: 05/19/19 04:40 05/19/19 04:40 Other Labs: Laboratory Results - last 48 hr 05/16/19 05/16/19 05/17/19 17:38 21:11 07:39 WBC RBC Hgb Hct MCV MCH MCHC RDW Plt Count MPV Neut % (Auto) Lymph % (Auto) [place] % (Auto) Eos % (Auto) Baso % (Auto) Neut # (Auto) Lymph # (Auto) [place] # (Auto) Eos # (Auto) Baso # (Auto) Nucleated RBC % (auto) Nucleated RBCs # Specimen Type Sample Site ABG pH ABG pCO2 ABG pO2 ABG HCO3 ABG Base Excess Miguel Test Hematocrit Respiration Rate O2 Delivery Device Mechanical Rate FiO2 PEEP Foot And Ankle Surgeon ID Sodium Potassium Chloride Carbon Dioxide Anion Gap BUN Creatinine GFR Calculation Glucose POC Glucose 266 247 246 Calcium Total Bilirubin AST ALT Alkaline Phosphatase NT-Pro-B Natriuret Pep Total Protein Albumin Globulin Vancomycin Trough 05/17/19 05/17/19 05/17/19 11:19 16:45 19:36 WBC RBC Hgb Hct MCV MCH MCHC RDW Plt Count MPV Neut % (Auto) Lymph % (Auto) [place] % (Auto) Eos % (Auto) Baso % (Auto) Neut # (Auto) Lymph # (Auto) [place] # (Auto) Eos # (Auto) Baso # (Auto) Nucleated RBC % (auto) Nucleated RBCs # Specimen Type Sample Site ABG pH ABG pCO2 ABG pO2 ABG HCO3 ABG Base Excess Miguel Test Hematocrit Respiration Rate O2 Delivery Device Mechanical Rate FiO2 PEEP Foot And Ankle Surgeon ID Sodium Potassium Chloride Carbon Dioxide Anion Gap BUN Creatinine GFR Calculation Glucose POC Glucose 284 274 243 Calcium Total Bilirubin AST ALT Alkaline Phosphatase NT-Pro-B Natriuret Pep Total Protein Albumin Globulin Vancomycin Trough 05/17/19 05/18/19 05/18/19 21:08 03:58 03:58 WBC 40.2 H* RBC 5.07 Hgb 13.9 Hct 45.8 MCV 90.3 MCH 27.4 L MCHC 30.3 RDW 16.5 H Plt Count 187 MPV 11.8 H Neut % (Auto) 85.9 Lymph % (Auto) 3.5 [place] % (Auto) 6.5 Eos % (Auto) 0.0 Baso % (Auto) 0.2 Neut # (Auto) 34.5 H Lymph # (Auto) 1.4 [place] # (Auto) 2.6 H Eos # (Auto) 0.0 Baso # (Auto) 0.1 Nucleated RBC % (auto) 0 Nucleated RBCs # 0.0 Specimen Type Sample Site ABG pH ABG pCO2 ABG pO2 ABG HCO3 ABG Base Excess Miguel Test Hematocrit Respiration Rate O2 Delivery Device Mechanical Rate FiO2 PEEP Foot And Ankle Surgeon ID Sodium 137 Potassium 3.8 Chloride 94 L Carbon Dioxide 25 Anion Gap 21.8 H BUN 30 H Creatinine 1.2 H GFR Calculation 44.9 L Glucose 187 H POC Glucose 196 Calcium 8.2 L Total Bilirubin 0.8 AST 43 H ALT 15 Alkaline Phosphatase 77 NT-Pro-B Natriuret Pep Total Protein 7.8 Albumin 3.0 L Globulin 4.8 H Vancomycin Trough 05/18/19 05/18/19 05/18/19 05:30 07:20 08:57 WBC RBC Hgb Hct MCV MCH MCHC RDW Plt Count MPV Neut % (Auto) Lymph % (Auto) [place] % (Auto) Eos % (Auto) Baso % (Auto) Neut # (Auto) Lymph # (Auto) [place] # (Auto) Eos # (Auto) Baso # (Auto) Nucleated RBC % (auto) Nucleated RBCs # Specimen Type Arterial Sample Site Radial, right ABG pH 7.43 ABG pCO2 42.3 ABG pO2 95.9 ABG HCO3 28.3 H ABG Base Excess 3.6 H Miguel Test Pos Hematocrit 39.5 Respiration Rate 10.0 O2 Delivery Device Vent Mechanical Rate FiO2 35.0 PEEP 8.0 Foot And Ankle Surgeon ID vossa Sodium Potassium Chloride Carbon Dioxide Anion Gap BUN Creatinine GFR Calculation Glucose POC Glucose 189 Calcium Total Bilirubin AST ALT Alkaline Phosphatase NT-Pro-B Natriuret Pep Total Protein Albumin Globulin Vancomycin Trough 29.9 H* 05/18/19 05/18/19 05/18/19 08:57 11:34 18:03 WBC RBC Hgb Hct MCV MCH MCHC RDW Plt Count MPV Neut % (Auto) Lymph % (Auto) [place] % (Auto) Eos % (Auto) Baso % (Auto) Neut # (Auto) Lymph # (Auto) [place] # (Auto) Eos # (Auto) Baso # (Auto) Nucleated RBC % (auto) Nucleated RBCs # Specimen Type Sample Site ABG pH ABG pCO2 ABG pO2 ABG HCO3 ABG Base Excess Miguel Test Hematocrit Respiration Rate O2 Delivery Device Mechanical Rate FiO2 PEEP Foot And Ankle Surgeon ID Sodium Potassium Chloride Carbon Dioxide Anion Gap BUN Creatinine GFR Calculation Glucose POC Glucose 210 211 Calcium Total Bilirubin AST ALT Alkaline Phosphatase NT-Pro-B Natriuret Pep 798 H Total Protein Albumin Globulin Vancomycin Trough 05/18/19 05/19/19 05/19/19 20:30 04:40 04:40 WBC 33.9 H* RBC 4.98 Hgb 13.6 Hct 43.9 MCV 88.2 MCH 27.3 L MCHC 31.0 RDW 16.0 H Plt Count 190 MPV 11.1 H Neut % (Auto) 86.2 Lymph % (Auto) 4.3 [place] % (Auto) 6.3 Eos % (Auto) 0.0 Baso % (Auto) 0.2 Neut # (Auto) 29.2 H Lymph # (Auto) 1.5 [place] # (Auto) 2.1 H Eos # (Auto) 0.0 Baso # (Auto) 0.1 Nucleated RBC % (auto) 0 Nucleated RBCs # 0.0 Specimen Type Sample Site ABG pH ABG pCO2 ABG pO2 ABG HCO3 ABG Base Excess Miguel Test Hematocrit Respiration Rate O2 Delivery Device Mechanical Rate FiO2 PEEP Foot And Ankle Surgeon ID Sodium 141 Potassium 3.0 L Chloride 96 L Carbon Dioxide 26 Anion Gap 22.0 H BUN 43 H Creatinine 1.4 H GFR Calculation 37.6 L Glucose 161 H POC Glucose 172 Calcium 8.0 L Total Bilirubin 0.5 AST 29 ALT 14 Alkaline Phosphatase 90 NT-Pro-B Natriuret Pep Total Protein 7.5 Albumin 3.2 L Globulin 4.3 Vancomycin Trough 05/19/19 05/19/19 05:45 07:12 WBC RBC Hgb Hct MCV MCH MCHC RDW Plt Count MPV Neut % (Auto) Lymph % (Auto) [place] % (Auto) Eos % (Auto) Baso % (Auto) Neut # (Auto) Lymph # (Auto) [place] # (Auto) Eos # (Auto) Baso # (Auto) Nucleated RBC % (auto) Nucleated RBCs # Specimen Type Arterial Sample Site Radial, right ABG pH 7.43 ABG pCO2 44.0 ABG pO2 114.0 H ABG HCO3 29.4 H ABG Base Excess 4.3 H Miguel Test Pos Hematocrit 53.2 H Respiration Rate 10.0 O2 Delivery Device Vent Mechanical Rate 10.0 FiO2 35.0 PEEP 6.0 Foot And Ankle Surgeon ID vossa Sodium Potassium Chloride Carbon Dioxide Anion Gap BUN Creatinine GFR Calculation Glucose POC Glucose 161 Calcium Total Bilirubin AST ALT Alkaline Phosphatase NT-Pro-B Natriuret Pep Total Protein Albumin Globulin Vancomycin Trough Micro: Microbiology 05/18/19 03:53 Blood Culture - Preliminary Blood NEGATIVE TO DATE 05/18/19 03:49 Blood Culture - Preliminary Blood NEGATIVE TO DATE 05/16/19 13:51 Blood Culture - Preliminary Blood Strep species, alpha hemolytic 05/16/19 11:55 Blood Culture - Preliminary Blood Strep species, alpha hemolytic 05/16/19 17:19 Gram Stain - Final Sputum - Endotracheal Tube Aspirate Sputum Culture - Preliminary Cardiac Studies: No Data to Display
[2019-05-19] MEDS: budesonide 0.5 mg/2 mL Neb INHALATION ×2 (09:23→20:59)
[2019-05-19 11:34] LABS: Glucose Point of Care 171 mg/dL (70-110)
--- NOTE | 2019-05-19 14:01 | PC.CHAP ---
Pastoral Care Encounter/Spiritual Assessment Type of Contact [] Declined set up inspector visit [] Patient/Family/Request visit [] Outpatient visit [] Follow-up visit [] Physician referral [] Code/Alert [] Routine visit [] Staff referral [] Actively dying [X] Patient sleeping [] Family support [] [] Out of room [] Palliative care [] [] Receiving care in room [] Pre-surgical visit [] Trauma [] Long length of stay [X] ICU visit [] Other: Relational/Emotional Strength [] Patient feels connected with others/family/visitors/staff [] Distress [] Loneliness/isolation [] Abandonment Spirituality of Patient [] Person of [place] [] Attends [employer] of their [place] [] Believes in Prayer [] Reads Bible or Sikh materials [] There are Spiritual issues to be addressed Explosives Operator Interventions [X] Prayer [] Active listening [] Non-anxious presence [] Spiritual/emotional support [] Crisis/trauma care [] Spiritual counseling [] Bereavement support [] Provided bereavement packet [] Provided Bible/devotional materials [] Provided toy/stuffed animal, coloring book to patient or family member [] Provided Communion [] Anointing/[place] [] Salvation [] Completed spiritual assessment [] Other: Impact on Illness or Injury [] Angry [] Fearful [] Anxious [] Often cries [] Exhaustion [] Unable to work [] Unable to attend sikh [] Unable to walk/stand [] Unable to read [] Unable to drive [] Unable to eat/drink [] Unable to sleep [] Unable to be with family [x] Patient intubated [] Other: Summary Patient was sleeping At the time of set up inspector visit. Patient is Intubated and nurse stated that she opens her eyes sometimes. Patient was visited by Explosives Operator Gustavo Rain Time spent with patient 5 minutes
--- NOTE | 2019-05-19 15:08 | PM.PN ---
Subjective Subjective: Interval history: Remains intubated and seadted, weaning trial this afternoon. Attempted to sit her by side of bed, at which time noted to have L gaze preference. Ct head ordered. OMAR negative Medications: Reviewed: Yes Vitals/I&O/Wt Last Vital Signs Temp 97.9 F 05/19/19 08:00 Pulse 91 05/19/19 14:47 Resp 18 05/19/19 14:45 BP 126/72 05/19/19 14:00 Pulse Ox 97 05/19/19 14:45 05/19/19 05/19/19 05/19/19 06:59 14:59 22:59 Intake Total 117.951 / 438.694 87.182 / 87.182 Output Total 1000 / 2300 Balance -882.049 / -1861.306 87.182 / 87.182 Physical Exam Narrative: EXAM NARRATIVE: GEN: Intubated, drowsy CVS: S1S@ N RS: CTA B/L Abd: Soft, nt/nd , bs+ SOUNDING DEVICE OPERATOR: intubated, off sedation but does not wake up currently to calling name or tactile stimulus Urinary Catheter Management^: Garza: Cath Placed During This Visit: yes Urethral Indwelling: Yes Reason for Continuing Indwelling Catheter: Accurate Measurement of Urinary Output in Critically Ill Patients Urinary Catheter Date of Insertion: 05/16/19 Urinary Catheter Time of Insertion: 14:40 Data : 05/19/19 04:40 05/19/19 04:40 Micro: Microbiology 05/16/19 13:51 Blood Culture - Preliminary Blood Streptococcus pneumoniae 05/16/19 17:19 Gram Stain - Final Sputum - Endotracheal Tube Aspirate Sputum Culture - Preliminary 05/18/19 03:49 Blood Culture - Preliminary Blood Gram positive cocci 05/18/19 03:53 Blood Culture - Preliminary Blood NEGATIVE TO DATE 05/16/19 11:55 Blood Culture - Preliminary Blood Strep species, alpha hemolytic A&P Assessment and plan (1) Respiratory failure: Multifactorial. Most significant is acute diastolic heart failure. Lasix 60 mg IV x1 has been given in the emergency department. Patient has been intubated. Multiple cofactors including obesity hypoventilation, COPD, untreated sleep apnea, etc. had recent hospital stay for similar presentation. Aspiration could have complicated her picture as well. She has improved, and diuresed somewhat. weaning trial today Status: Acute Code(s): J96.90 - Respiratory failure, unspecified, unspecified whether with hypoxia or hypercapnia (2) Acute diastolic heart failure: Lasix 40 mg IV every 12 hours Status: Acute Code(s): I50.31 - Acute diastolic (congestive) heart failure (3) COPD exacerbation: Continue Solu-Medrol Cefepime. Vancomycin. Pulmonary toilet Would benefit from BiPAP at home if she would be compliant with this. Status: Acute Code(s): J44.1 - Chronic obstructive pulmonary disease with (acute) exacerbation (4) Elevated troponin: Secondary to positive delta check echocardiogram. This demonstrated EF of 50 to 55%, moderate to severe mitral regurgitation. Continue aspirin, statin. Continue DVT prophylaxis Lovenox at this time. Status: Acute Code(s): R79.89 - Other specified abnormal findings of blood chemistry (5) Elevated lipase: Doubt pancreatitis. CT abdomen pelvis did not show pancreatitis. Repeat lipase normal. Status: Acute Code(s): R74.8 - Abnormal levels of other serum enzymes (6) Leukocytosis: Markedly elevated. Likely secondary to bacteremia, steroids Status: Acute Code(s): D72.829 - Elevated white blood cell count, unspecified Additional A&P Information Bacteremia, alphahemolytic strep. Awaiting ID and sensitivities. Aspiration pneumonitis. Continue cefepime, add vancomycin and Flagyl history of hypercalcemia, appears to be on Miacalcin. Elevated parathyroid hormone level in the past. Calcium level normal this morning Depression/anxiety Hyperlipidemia Hypertension History of severe pulmonary hypertension History of obesity Likely obesity hypoventilation History of seizure disorder, on Keppra Type 2 diabetes Multiple other medical problems as outlined in past medical history Full code Lovenox for DVT prophylaxis Possible extubation tomorrow Attestations Medical Necessity Statement*: ongoing respiratory failure, septicemia Coding Level of Care Code Acute Mechanical Specialist for [facility] Fw Diagnoses Respiratory failure J96.90 Acute diastolic heart failure I50.31 COPD exacerbation J44.1 Elevated troponin R79.89 Elevated lipase R74.8 Leukocytosis D72.829
--- NOTE | 2019-05-19 15:36 | CT_ITS ---
WS: [id number] CT scan of the head, 05/19/2019 Clinical Data: unable to follow commands Comparison: CT head, 05/16/2019. DLP: 651.[address] scans at [facility] use at least one of these dose optimization techniques: automat ed exposure control; mA and/or kV adjustment per patient size (includes targeted exams where dose is matched to clinical indication); or iterative reconstruction. Findings: The ventricular system is normal without shift. No recent infarct or hemorrhage is seen. There are no abnormal intracerebral masses. The cerebellum and brainstem are not remarkable. Bony windows of the skull and skull base show no fractures or erosions. The mastoid air cells, pharmacist intern al auditory canals, sella turcica, intraorbital contents, and paranasal sinuses show mild bilateral m astoid air cell opacification unchanged. There is also minimal right ethmoid sinus mucoperiosteal thi ckening.. CT/CT head wo con* [id number] Impression: Negative for acute intracerebral abnormalities.
[2019-05-19 16:42] LABS: Glucose Point of Care 208 mg/dL (70-110)
[2019-05-19] MEDS: enoxaparin 40 mg/0.4 mL Syringe SUBCUT (17:35)
[2019-05-19] MEDS: levETIRAcetam 500 mg Tablet 1000 MG PEG-TUBE (17:35)
--- NOTE | 2019-05-19 18:38 | PM.PN ---
Subjective Subjective: Interval history: Patient is still on the vent and he is sedated. She had the transesophageal echocardiogram in the ICU. She was found to have no intracardiac masses or vegetations. Medications: Reviewed: Yes Vitals/I&O/Wt Last Vital Signs Temp 97.9 F 05/19/19 08:00 Pulse 90 05/19/19 18:00 Resp 12 05/19/19 18:04 BP 113/61 05/19/19 18:00 Pulse Ox 93 05/19/19 18:00 05/19/19 05/19/19 05/19/19 06:59 14:59 22:59 Intake Total 117.951 / 438.694 370.994 / 370.994 Output Total 1000 / 2300 900 / 900 Balance -882.049 / -1861.306 370.994 / 370.994 -900 / -529.006 Physical Exam Narrative: EXAM NARRATIVE: GENERAL: Patient is intubated and sedated HEENT: No significant pallor, icterus or lymphadenopathy. The pupils are reactant to light. Oral cavity: There are no mucous membrane lesions. Funduscopic examination: Fundus is not visualized NECK: Trachea appears to be central. No masses noted. No JVD or thyromegaly appreciated. No carotid bruit. RESPIRATORY: Breath sounds are heard bilaterally. Occasional coarse crackles. BREASTS: Deferred. HEART: PMI not palpated. Systolic murmur grade 3/6 in the left sternal border. No diastolic murmurs. ABDOMEN: Abdomen is obese no vessel pulsations or distention. No tenderness. No organomegaly appreciated. No abdominal bruit. Bowel sounds are normally heard. : Deferred. RECTAL: Deferred. LYMPHATIC: No lymphadenopathy noted in the neck. EXTREMITIES: No edema or cyanosis. MUSCULOSKELETAL: No acute joint deformities or swelling SKIN: There are no significant skin rashes NEUROPSYCHIATRIC: No focal motor deficits Urinary Catheter Management^: Garza: Cath Placed During This Visit: yes Urethral Indwelling: Yes Reason for Continuing Indwelling Catheter: Accurate Measurement of Urinary Output in Critically Ill Patients Urinary Catheter Date of Insertion: 05/16/19 Urinary Catheter Time of Insertion: 14:40 Data : 05/19/19 04:40 05/19/19 04:40 Micro: Microbiology 05/16/19 13:51 Blood Culture - Preliminary Blood Streptococcus pneumoniae 05/16/19 17:19 Gram Stain - Final Sputum - Endotracheal Tube Aspirate Sputum Culture - Preliminary 05/18/19 03:49 Blood Culture - Preliminary Blood Gram positive cocci 05/18/19 03:53 Blood Culture - Preliminary Blood NEGATIVE TO DATE OMAR: My impression: Appears to be mildly dilated with slightly diminished ejection fraction of 45 to 50%. Moderate mitral valve regurgitation. Mild tricuspid regurgitation No masses or vegetations were noted on the valves. No intracardiac masses Thickened aortic valve Mild diffuse plaques in the descending aorta Technically somewhat limited study No similar previous studies are available for comparison A&P Assessment and plan (1) Streptococcal bacteremia: Patient has no evidence of endocarditis, based on the OMAR. Status: Acute Code(s): R78.81 - Bacteremia; B95.5 - Unspecified streptococcus as the cause of diseases classified elsewhere (2) Moderate to severe mitral regurgitation: The mitral regurgitation, appears to be moderate by transesophageal echocardiogram. Continue findings as mentioned above Status: Acute Code(s): I34.0 - Nonrheumatic mitral (valve) insufficiency (3) Decompensated COPD with exacerbation (chronic obstructive pulmonary disease): Patient has a history of recurrent respiratory infection. Possible pneumonia could be the contributing factor. She is on multiple antibiotics. Management as per the primary Status: Acute Code(s): J44.1 - Chronic obstructive pulmonary disease with (acute) exacerbation (4) Nonischemic cardiomyopathy: Patient has a history of nonischemic cardiomyopathy .she had a myocardial perfusion imaging 2015 which was unremarkable. Her LV ejection fraction was around 45 to 50% at that time, based on the echocardiogram.. The BNP was found to be elevated at 798. Patient has some features of diastolic heart failure. Status: Acute Code(s): I42.8 - Other cardiomyopathies (5) Acute on chronic diastolic (congestive) heart failure: Patient may be continued on the careful diuresis. Status: Acute Code(s): I50.33 - Acute on chronic diastolic (congestive) heart failure Additional A&P Information Based on the clinical progress, further recommendations will be made Attestations Medical Necessity Statement*: Patient requires continued hospital stay for close monitoring and further management Coding Level of Care Code Acute Channel Process Plant Operator for [facility] Fwd Diagnoses Streptococcal bacteremia R78.81; B95.5 Moderate to severe mitral regurgitation I34.0 Decompensated COPD with exacerbation (chronic obstructive pulmonary disease) J44.1 Nonischemic cardiomyopathy I42.8 Acute on chronic diastolic (congestive) heart failure I50.33
[2019-05-19] MEDS: atorvastatin 40 mg Tablet 80 MG PO (22:28)
[2019-05-19 22:33] LABS: Glucose Point of Care 182 mg/dL (70-110)
[2019-05-20] VITALS (28 sets, daily range): BP systolic 82–129; BP diastolic 54–77; PULSE 67–97; RESP 10–31; TEMP 36.7–36.8; O2SAT 87–97
[2019-05-20] MEDS: ipratropium-albuterol 3 mL Neb INHALATION ×4 (02:15→20:56)
[2019-05-20 04:22] LABS: Basophils % 0.1 %; Hematocrit 44.5 % (37.0-47.0); Hemoglobin 13.7 g/dL (11.5-15.3); Lymphocytes # 1.1 10^3/uL (0.8-4.8); Lymphocytes % 5.8 %; Mean Corpuscular HGB Conc 30.8 g/dL (30.0-36.0); Mean Corpuscular Hemoglobin 27.7 pg (28.0-34.0); Mean Corpuscular Volume 89.9 fL (81-99); Mean Platelet Volume 11.6 fL (7.4-10.4); Monocytes # 1.3 10^3/uL (0.2-0.9); Monocytes % 6.9 %; Neutrophils # 16.2 10^3/uL (1.8-7.7); Nucleated Red Blood Cells % 0 %; Platelet Count 181 10^3/cmm (130-400); Red Blood Count 4.95 10^6/uL (4.1-5.3); White Blood Count 18.9 10^3/uL (4.0-10.0)
[2019-05-20 04:45] LABS: Alanine Aminotransferase 17 U/L (0-33); Albumin Level 3.3 g/dL (3.5-5.2); Alkaline Phosphatase 81 IU/L (35-105); Anion Gap 22.9 (5-19); Aspartate Amino Transferase 31 U/L (0-32); Blood Urea Nitrogen 49 mg/dL (8-23); Calcium 7.6 mg/dL (8.5-10.5); Carbon Dioxide 28 mmol/L (22-29); Chloride 96 mmol/L (98-107); Globulin 4.5 g/dL (1.3-4.6); Glucose 184 mg/dL (65-115); Sodium 144 mmol/L (136-145); Total Bilirubin 0.5 mg/dL (0.15-1.2); Total Protein 7.8 g/dL (6.6-8.7)
[2019-05-20 04:53] LABS: Potassium 2.9 mmol/L (3.5-5.1)
[2019-05-20 05:02] LABS: ABG PH Result 7.46 (7.35-7.45); Arterial Blood Gas Hematocrit 44.5 % (37-47); Base Excess ABG 6.2 mmol/L (-2.0-2.0); Blood Gas Allen Test Pos; Blood Gas Sample Site Radial, right; Blood Gas Sample Type Arterial; Blood Gas Tidal Volume 0.45; Oxygen Device VENT; PO2 ABG 83.7 mmHg (80.0-100.0)
[2019-05-20] MEDS: cefepime 2,000 MG in sodium chloride 0.9% (plus) 50 ML 100 MG IV (05:42)
[2019-05-20] MEDS: levETIRAcetam 500 mg Tablet OG-TUBE (05:42)
[2019-05-20] MEDS: potassium chloride premix 40 MEQ/100 ML PREMIX 25 MEQ IV ×2 (06:34→09:40)
[2019-05-20 07:40] LABS: Glucose Point of Care 158 mg/dL (70-110)
[2019-05-20] MEDS: budesonide 0.5 mg/2 mL Neb INHALATION ×2 (07:59→20:56)
--- NOTE | 2019-05-20 08:19 | CT_ITS ---
WS: [id number] CT scan of the chest without IV contrast, additional two-dimensional coronal and sagittal reconstruct ion was performed. 05/20/2019 Clinical Data: pneumonia Comparison: CTA chest, 02/02/2019. DLP: 909.[address] scans at [facility] use at least one of these dose optimization techniques: automat ed exposure control; mA and/or kV adjustment per patient size (includes targeted exams where dose is matched to clinical indication); or iterative reconstruction. Findings: No nodules, masses or effusions are seen. The heart size is slightly enlarged with no pericardial eff usion. No pneumonia or pneumothorax is seen. The pulmonary arterial system and thoracic aorta demonst rate no abnormalities or dilatations. There is no axillary or significant mediastinal adenopathy. The left thyroid gland shows a calcification. The trachea bifurcates normally into the bronchi. The frac ture of the inferior aspect of T12 has not changed. The upper abdomen shows probable stones in the gallbladder, but otherwise no abnormalities are seen. CT/CT chest wo con [id number] Impression: 1. Cardiomegaly, otherwise negative CT scan of the chest. 2. The groundglass infiltrates noted in the prior scan are no longer present.
[2019-05-20] MEDS: roflumilast 500 mcg Tablet PO (08:29)
[2019-05-20] MEDS: gabapentin 300 mg Capsule PO ×3 (08:29→21:37)
[2019-05-20] MEDS: aspirin 325 mg Tablet OG-TUBE (08:29)
[2019-05-20] MEDS: venlafaxine 75 mg Tablet PO (08:29)
[2019-05-20] MEDS: calcitonin nasal 200 unit/spray 3.7 mL Btl 1 SPRAY NASAL (08:40)
[2019-05-20] MEDS: FUROsemide 10 mg/mL SDV 10mL 40 MG IVP ×2 (09:40→21:36)
--- NOTE | 2019-05-20 09:50 | PC.CHAP ---
Pastoral Care Encounter/Spiritual Assessment Type of Contact [] Declined exceptional children teacher assistant visit [] Patient/Family/Request visit [] Outpatient visit [] Follow-up visit [] Physician referral [] Code/Alert [x] Routine visit [] Staff referral [] Actively dying [] Patient sleeping [] Family support [] [] Out of room [] Palliative care [] [x] Receiving care in room [] Pre-surgical visit [] Trauma [] Long length of stay [x] ICU visit [] Other: Relational/Emotional Strength [] Patient feels connected with others/family/visitors/staff [] Distress [] Loneliness/isolation [] Abandonment Spirituality of Patient [] Person of [place] [] Attends Holiness of their [place] [] Believes in Prayer [] Reads Bible or Yazidi materials [] There are Spiritual issues to be addressed Deputy Manager Interventions [] Prayer [] Active listening [] Non-anxious presence [] Spiritual/emotional support [] Crisis/trauma care [] Spiritual counseling [] Bereavement support [] Provided bereavement packet [] Provided Bible/devotional materials [] Provided toy/stuffed animal, coloring book to patient or family member [] Provided Communion [] Anointing/[place] [] Salvation [x] Completed spiritual assessment [] Other: Impact on Illness or Injury [] Angry [] Fearful [] Anxious [] Often cries [] Exhaustion [] Unable to work [] Unable to attend christian [] Unable to walk/stand [] Unable to read [] Unable to drive [] Unable to eat/drink [] Unable to sleep [] Unable to be with family [] Patient intubated [] Other: Summary Time spent with patient
--- NOTE | 2019-05-20 10:07 | P.PN_ITS ---
Subjective Subjective: Interval history: Patient is in the process of being extubated. No arrhythmias on the monitor. Vital signs remained stable. White cell count still remains elevated. Medications: Reviewed: Yes Vitals/I&O/Wt Last Vital Signs Temp 98.2 F 05/20/19 08:00 Pulse 87 05/20/19 08:03 Resp 31 H 05/20/19 09:25 BP 107/61 05/20/19 08:00 Pulse Ox 95 05/20/19 08:00 05/19/19 05/20/19 05/20/19 22:59 06:59 14:59 Intake Total 60 / 430.994 117.61 / 548.604 77.5 / 77.5 Output Total 900 / 900 500 / 1400 Balance -840 / -469.006 -382.39 / -851.396 77.5 / 77.5 Physical Exam Narrative: EXAM NARRATIVE: GENERAL: Patient is intubated and sedated HEENT: No significant pallor, icterus or lymphadenopathy. The pupils are reactant to light. Oral cavity: There are no mucous membrane lesions. Funduscopic examination: Fundus is not visualized NECK: Trachea appears to be central. No masses noted. No JVD or thyromegaly appreciated. No carotid bruit. RESPIRATORY: Breath sounds are heard bilaterally. Occasional coarse crackles. BREASTS: Deferred. HEART: PMI not palpated. Systolic murmur grade 3/6 in the left sternal border. No diastolic murmurs. ABDOMEN: Abdomen is obese no vessel pulsations or distention. No tenderness. No organomegaly appreciated. No abdominal bruit. Bowel sounds are normally heard. : Deferred. RECTAL: Deferred. LYMPHATIC: No lymphadenopathy noted in the neck. EXTREMITIES: No edema or cyanosis. MUSCULOSKELETAL: No acute joint deformities or swelling SKIN: There are no significant skin rashes NEUROPSYCHIATRIC: No focal motor deficits Urinary Catheter Management^: Garza: Cath Placed During This Visit: yes Urethral Indwelling: Yes Reason for Continuing Indwelling Catheter: Accurate Measurement of Urinary Output in Critically Ill Patients Urinary Catheter Date of Insertion: 05/16/19 Urinary Catheter Time of Insertion: 14:40 Data : 05/20/19 03:50 05/20/19 03:50 Micro: Microbiology 05/18/19 03:49 Blood Culture - Preliminary Blood Coagulase negativ staphylococc 05/16/19 13:51 Blood Culture - Preliminary Blood Streptococcus pneumoniae 05/16/19 17:19 Gram Stain - Final Sputum - Endotracheal Tube Aspirate Sputum Culture - Preliminary 05/18/19 03:53 Blood Culture - Preliminary Blood NEGATIVE TO DATE A&P Assessment and plan (1) Streptococcal bacteremia: Patient has no evidence of endocarditis, based on the OMAR. May continue on the current medications Status: Acute Code(s): R78.81 - Bacteremia; B95.5 - Unspecified streptococcus as the cause of diseases classified elsewhere (2) Moderate to severe mitral regurgitation: The mitral regurgitation, appears to be moderate by transesophageal echocardiogram. Continue findings as mentioned above Status: Acute Code(s): I34.0 - Nonrheumatic mitral (valve) insufficiency (3) Decompensated COPD with exacerbation (chronic obstructive pulmonary disease): Patient has a history of recurrent respiratory infection. Possible pneumonia could be the contributing factor. She is on multiple antibiotics. Management as per the primary Status: Acute Code(s): J44.1 - Chronic obstructive pulmonary disease with (acute) exacerbation (4) Nonischemic cardiomyopathy: Patient has a history of nonischemic cardiomyopathy .she had a myocardial perfusion imaging 2015 which was unremarkable. Her LV ejection fraction was around 45 to 50% at that time, based on the echocardiogram.. The BNP was found to be elevated at 798. Patient has some features of diastolic heart failure. Currently appears to be compensated. May continue on the current medications Status: Acute Code(s): I42.8 - Other cardiomyopathies (5) Acute on chronic diastolic (congestive) heart failure: Patient may be continued on the careful diuresis. The BNP was 798. Status: Acute Code(s): I50.33 - Acute on chronic diastolic (congestive) heart failure Additional A&P Information Since the patient's overall cardiovascular status seems to be stable, she may not require any active follow-up at this point. Please feel free to call me w ith any further questions regarding her cardiovascular status Attestations Medical Necessity Statement*: Deferred to the primary Coding Level of Care Code Acute Digital Account Manager for [facility] Fwd Diagnoses Streptococcal bacteremia R78.81; B95.5 Moderate to severe mitral regurgitation I34.0 Decompensated COPD with exacerbation (chronic obstructive pulmonary disease) J44.1 Nonischemic cardiomyopathy I42.8 Acute on chronic diastolic (congestive) heart failure I50.33
--- NOTE | 2019-05-20 10:18 | PC.NURSE ---
Extubated to 5L nasal cannula.
[2019-05-20 11:18] LABS: Glucose Point of Care 169 mg/dL (70-110)
--- NOTE | 2019-05-20 12:40 | PC.SLP ---
Orders received to evaluate swallowing, however, protocol is to wait for 24 hours post extubation before evaluation. Patient will be evaluated on 05/21/19.
--- NOTE | 2019-05-20 13:57 | PM.PN ---
Subjective Subjective: Interval history: extubated today, Sore throat since extubation but oethwise appears comfortbale . WBC trending down. rpt cx from 05/17 with coag negative staph, not sstreptococcus Medications: Reviewed: Yes Vitals/I&O/Wt Last Vital Signs Temp 98.2 F 05/20/19 08:00 Pulse 87 05/20/19 12:00 Resp 17 05/20/19 12:00 BP 118/77 05/20/19 12:00 Pulse Ox 95 05/20/19 11:01 05/19/19 05/20/19 05/20/19 22:59 06:59 14:59 Intake Total 60 / 430.994 117.61 / 548.604 317.5 / 317.5 Output Total 900 / 900 500 / 1400 Balance -840 / -469.006 -382.39 / -851.396 317.5 / 317.5 Physical Exam Narrative: EXAM NARRATIVE: GEN: awake, alert and oriented CVS: S1S2 N RS: CTA B/L Abd: Soft, nt/nd , bs+ Urinary Catheter Management^: Garza: Cath Placed During This Visit: yes Urethral Indwelling: Yes Reason for Continuing Indwelling Catheter: Accurate Measurement of Urinary Output in Critically Ill Patients Urinary Catheter Date of Insertion: 05/16/19 Urinary Catheter Time of Insertion: 14:40 Data : 05/20/19 03:50 05/20/19 03:50 Micro: Microbiology 05/16/19 11:55 Blood Culture - Preliminary Blood Streptococcus pneumoniae 05/16/19 13:51 Blood Culture - Preliminary Blood Streptococcus pneumoniae 05/20/19 10:21 Blood Culture - Preliminary Blood SPECIMEN COLLECTED 05/20/19 10:18 Blood Culture - Preliminary Blood SPECIMEN COLLECTED 05/18/19 03:49 Blood Culture - Preliminary Blood Coagulase negativ staphylococc 05/16/19 17:19 Gram Stain - Final Sputum - Endotracheal Tube Aspirate Sputum Culture - Preliminary A&P Assessment and plan (1) Respiratory failure: Multifactorial. Most significant is acute diastolic heart failure. Lasix 60 mg IV x1 has been given in the emergency department. Patient has been intubated. Multiple cofactors including obesity hypoventilation, COPD, untreated sleep apnea, etc. had recent hospital stay for similar presentation. Aspiration could have complicated her picture as well. She has improved, and diuresed somewhat. extubated today Status: Acute Code(s): J96.90 - Respiratory failure, unspecified, unspecified whether with hypoxia or hypercapnia (2) Acute diastolic heart failure: Lasix 40 mg IV every 12 hours Status: Acute Code(s): I50.31 - Acute diastolic (congestive) heart failure (3) COPD exacerbation: Continue Solu-Medrol Cefepime. Vancomycin. Pulmonary toilet Would benefit from BiPAP at home if she would be compliant with this. Status: Acute Code(s): J44.1 - Chronic obstructive pulmonary disease with (acute) exacerbation (4) Elevated troponin: Secondary to positive delta check echocardiogram. This demonstrated EF of 50 to 55%, moderate to severe mitral regurgitation. Continue aspirin, statin. Continue DVT prophylaxis Lovenox at this time. Status: Acute Code(s): R79.89 - Other specified abnormal findings of blood chemistry (5) Elevated lipase: Doubt pancreatitis. CT abdomen pelvis did not show pancreatitis. Repeat lipase normal. Status: Acute Code(s): R74.8 - Abnormal levels of other serum enzymes (6) Leukocytosis: Markedly elevated. Likely secondary to bacteremia, steroids Status: Acute Code(s): D72.829 - Elevated white blood cell count, unspecified Additional A&P Information Bacteremia, alphahemolytic strep. d/c cefepime and vancomycin. Switch to iv ceftriaxone 1g qd will plan for 14 day rx from clearance. Picc line for same history of hypercalcemia, appears to be on Miacalcin. Elevated parathyroid hormone level in the past. Calcium level normal this morning Depression/anxiety Hyperlipidemia Hypertension History of severe pulmonary hypertension History of obesity Likely obesity hypoventilation History of seizure disorder, on Keppra Type 2 diabetes Multiple other medical problems as outlined in past medical history Full code Lovenox for DVT prophylaxis Dispo: D/c to NH when ready Attestations Medical Necessity Statement*: optimization of respiratory status, extubated today Coding Level of Care Code Acute [employer] Manager for [employer]di Diagnoses Respiratory failure J96.90 Acute diastolic heart failure I50.31 COPD exacerbation J44.1 Elevated troponin R79.89 Elevated lipase R74.8 Leukocytosis D72.829
--- NOTE | 2019-05-20 14:34 | PC.CHAP ---
Pastoral Care Encounter/Spiritual Assessment Type of Contact [] Declined rn mds coordinator visit [] Patient/Family/Request visit [] Outpatient visit [] Follow-up visit [] Physician referral [] Code/Alert [x] Routine visit [] Staff referral [] Actively dying [] Patient sleeping [] Family support [] [] Out of room [] Palliative care [] [] Receiving care in room [] Pre-surgical visit [] Trauma [] Long length of stay [x] ICU visit [] Other: Relational/Emotional Strength [x] Patient feels connected with others/family/visitors/staff [] Distress [] Loneliness/isolation [] Abandonment Spirituality of Patient [x] Person of [place] [] Attends Gnosticism of their [place] [x] Believes in Prayer [] Reads Bible or Catholic materials [] There are Spiritual issues to be addressed First Calender Worker Interventions [x] Prayer [x] Active listening [x] Non-anxious presence [x] Spiritual/emotional support [] Crisis/trauma care [] Spiritual counseling [] Bereavement support [] Provided bereavement packet [] Provided Bible/devotional materials [] Provided toy/stuffed animal, coloring book to patient or family member [] Provided Communion x[x] Anointing/[place] [] Salvation [] Completed spiritual assessment [] Other: Impact on Illness or Injury [] Angry [] Fearful [x] Anxious [] Often cries [] Exhaustion [] Unable to work [] Unable to attend restorationism [] Unable to walk/stand [] Unable to read [] Unable to drive [] Unable to eat/drink [] Unable to sleep [] Unable to be with family [] Patient intubated [] Other: Summary Prayer Time spent with patient 3
[2019-05-20 16:59] LABS: Glucose Point of Care 196 mg/dL (70-110)
[2019-05-20] MEDS: levETIRAcetam 500 mg Tablet 1000 MG PEG-TUBE (17:02)
[2019-05-20] MEDS: enoxaparin 40 mg/0.4 mL Syringe SUBCUT (17:02)
[2019-05-20 21:04] LABS: Glucose Point of Care 274 mg/dL (70-110)
[2019-05-20] MEDS: atorvastatin 40 mg Tablet 80 MG PO (21:37)
[2019-05-20] MEDS: acetaminophen 325 mg Tablet 650 MG PO (21:43)
[2019-05-20] MEDS: fentaNYL 50 mcg/mL INJ 2mL 25 MCG IVP (22:13)
[2019-05-21] VITALS (25 sets, daily range): BP systolic 99–143; BP diastolic 53–92; PULSE 57–96; RESP 16–23; TEMP 36.6; O2SAT 90–100
[2019-05-21] MEDS: fentaNYL 50 mcg/mL INJ 2mL 25 MCG IVP ×2 (02:51→06:02)
[2019-05-21] MEDS: ipratropium-albuterol 3 mL Neb INHALATION ×4 (03:08→20:04)
[2019-05-21] MEDS: cefTRIAXone 1,000 MG in sodium chloride 0.9% (plus) 50 ML 100 MG IV (06:01)
[2019-05-21] MEDS: levETIRAcetam 500 mg Tablet OG-TUBE (06:02)
[2019-05-21 07:54] LABS: Glucose Point of Care 211 mg/dL (70-110)
[2019-05-21] MEDS: venlafaxine 75 mg Tablet PO (08:01)
[2019-05-21] MEDS: roflumilast 500 mcg Tablet PO (08:01)
[2019-05-21] MEDS: aspirin 325 mg Tablet OG-TUBE (08:01)
[2019-05-21] MEDS: gabapentin 300 mg Capsule PO ×3 (08:01→21:25)
[2019-05-21] MEDS: calcitonin nasal 200 unit/spray 3.7 mL Btl 1 SPRAY NASAL (08:08)
[2019-05-21] MEDS: budesonide 0.5 mg/2 mL Neb INHALATION ×2 (08:28→20:04)
[2019-05-21] MEDS: FUROsemide 10 mg/mL SDV 10mL 40 MG IVP (09:59)
[2019-05-21 11:17] LABS: Glucose Point of Care 251 mg/dL (70-110)
--- NOTE | 2019-05-21 11:39 | PC.SOCIAL ---
IMM updated Updated pt on Pg 2 IMM. Provided a copy to pt & left on pt's bedside table. No questions voiced. Signed, dated, & timed, original in chart.
--- NOTE | 2019-05-21 12:29 | PC.RESP ---
Patient is currently enrolled in Pulmonary Rehab and Smoking Cessation to start on May.
--- NOTE | 2019-05-21 13:10 | XR_ITS ---
WS: [id number] XR chest 1V portable [id number] REASON FOR EXAM: PICC Placement FINDINGS: PICC line is seen extending through the upper superior vena cava dispositioning appears to be satisfactory. There is mild pulmonary edema seen bilaterally There is cardiomegaly XR/XR chest 1V portable [id number] IMPRESSION:: PICC line satisfactory place.
--- NOTE | 2019-05-21 14:01 | PC.NURSE ---
PICC RIGHT arm ready for use. Primary nurse notified.
--- NOTE | 2019-05-21 15:23 | PM.PN ---
Subjective Subjective: Interval history: improving today after extubation yesetrday. No c/o chest pain, dyspnea, saturating well on 2lpm NC. blood cx from 05/17 remains negative. 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: no focal neuro deficits Urinary Catheter Management^: Garza: Cath Placed During This Visit: yes Urethral Indwelling: Yes Reason for Continuing Indwelling Catheter: Accurate Measurement of Urinary Output in Critically Ill Patients Urinary Catheter Date of Insertion: 05/16/19 Urinary Catheter Time of Insertion: 14:40 Data : 05/20/19 03:50 05/20/19 03:50 Micro: Microbiology 05/20/19 10:18 Blood Culture - Preliminary Blood NEGATIVE TO DATE 05/20/19 10:21 Blood Culture - Preliminary Blood NEGATIVE TO DATE 05/16/19 17:19 Gram Stain - Final Sputum - Endotracheal Tube Aspirate Sputum Culture - Final 05/16/19 11:55 Blood Culture - Preliminary Blood Streptococcus pneumoniae 05/16/19 13:51 Blood Culture - Preliminary Blood Streptococcus pneumoniae A&P Assessment and plan (1) Respiratory failure: Multifactorial. Most significant is acute diastolic heart failure. Patient had been intubated. Multiple cofactors including obesity hypoventilation, COPD, untreated sleep apnea, etc. had recent hospital stay for similar presentation. Aspiration could have complicated her picture as well. She has improved, now extubated 05/19 and doing well continue diuresis Status: Acute Code(s): J96.90 - Respiratory failure, unspecified, unspecified whether with hypoxia or hypercapnia (2) Acute diastolic heart failure: Lasix 40 mg IV every 12 hours Status: Acute Code(s): I50.31 - Acute diastolic (congestive) heart failure (3) COPD exacerbation: Continue Solu-Medrol, start tapering Pulmonary toilet Would benefit from BiPAP at home if she would be compliant with this. Status: Acute Code(s): J44.1 - Chronic obstructive pulmonary disease with (acute) exacerbation (4) Elevated troponin: Secondary to positive delta check echocardiogram. This demonstrated EF of 50 to 55%, moderate to severe mitral regurgitation. Continue aspirin, statin. Continue DVT prophylaxis Lovenox at this time. Status: Acute Code(s): R79.89 - Other specified abnormal findings of blood chemistry (5) Elevated lipase: Doubt pancreatitis. CT abdomen pelvis did not show pancreatitis. Repeat lipase normal. Status: Acute Code(s): R74.8 - Abnormal levels of other serum enzymes (6) Leukocytosis: Markedly elevated. Likely secondary to bacteremia, steroids, trending down Status: Acute Code(s): D72.829 - Elevated white blood cell count, unspecified (7) Streptococcal bacteremia: Status: Acute Code(s): R78.81 - Bacteremia; B95.5 - Unspecified streptococcus as the cause of diseases classified elsewhere Additional A&P Information Bacteremia, alphahemolytic strep. continue ceftriaxone 1g qd will plan for 14 day rx from clearance. Picc line for same history of hypercalcemia, appears to be on Miacalcin. Elevated parathyroid hormone level in the past. Calcium level normal this morning Depression/anxiety Hyperlipidemia Hypertension History of severe pulmonary hypertension History of obesity Likely obesity hypoventilation History of seizure disorder, on Keppra Type 2 diabetes Multiple other medical problems as outlined in past medical history Full code Lovenox for DVT prophylaxis Dispo: D/c to NH when ready Attestations Medical Necessity Statement*: optimization of respiratory status Coding Level of Care Code Acute Container Repairer for Kanchan Abdi Diagnoses Respiratory failure J96.90 Acute diastolic heart failure I50.31 COPD exacerbation J44.1 Elevated troponin R79.89 Elevated lipase R74.8 Leukocytosis D72.829 Streptococcal bacteremia R78.81; B95.5
[2019-05-21 15:38] LABS: Basophils % 0.1 %; Eosinophils # 0.1 10^3/uL (0.0-0.8); Eosinophils % 0.6 %; Hematocrit 43.9 % (37.0-47.0); Hemoglobin 13.6 g/dL (11.5-15.3); Lymphocytes # 1.6 10^3/uL (0.8-4.8); Lymphocytes % 12.9 %; Mean Corpuscular Hemoglobin 27.3 pg (28.0-34.0); Mean Platelet Volume 12.2 fL (7.4-10.4); Monocytes # 1.2 10^3/uL (0.2-0.9); Monocytes % 9.8 %; Neutrophils # 9.5 10^3/uL (1.8-7.7); Neutrophils % 75.5 %; Nucleated Red Blood Cells % 0 %; Platelet Count 161 10^3/cmm (130-400); Red Blood Count 4.99 10^6/uL (4.1-5.3); Red Cell Distribution Width 15.6 % (12.1-15.1); White Blood Count 12.6 10^3/uL (4.0-10.0)
[2019-05-21 16:54] LABS: Glucose Point of Care 224 mg/dL (70-110)
[2019-05-21] MEDS: enoxaparin 40 mg/0.4 mL Syringe SUBCUT (17:01)
[2019-05-21] MEDS: levETIRAcetam 500 mg Tablet 1000 MG PEG-TUBE (17:02)
[2019-05-21 17:33] LABS: Blood Urea Nitrogen 40 mg/dL (8-23); Carbon Dioxide 30 mmol/L (22-29); Globulin 4.4 g/dL (1.3-4.6); Glomerular Filtration Rate 62.6 mL/min (90-130)
[2019-05-21 17:41] LABS: Aspartate Amino Transferase 59 U/L (0-32)
[2019-05-21 17:42] LABS: Alanine Aminotransferase 28 U/L (0-33); Sodium 135 mmol/L (136-145)
[2019-05-21 17:43] LABS: Chloride 92 mmol/L (98-107)
[2019-05-21 17:44] LABS: Calcium 8.2 mg/dL (8.5-10.5); Glucose 254 mg/dL (65-115); Total Bilirubin 0.4 mg/dL (0.15-1.2)
[2019-05-21 17:45] LABS: Total Protein 7.8 g/dL (6.6-8.7)
[2019-05-21 17:46] LABS: Albumin Level 3.4 g/dL (3.5-5.2); Alkaline Phosphatase 91 IU/L (35-105)
--- NOTE | 2019-05-21 18:13 | PC.NURSE ---
Transfer to floor Patient transferred to [facility]. All belongings sent with patient including home oxygen tank. Oriented to room and call light within reach.
[2019-05-21 21:15] LABS: Glucose Point of Care 155 mg/dL (70-110)
[2019-05-21] MEDS: atorvastatin 40 mg Tablet 80 MG PO (21:25)
[2019-05-21] MEDS: FUROsemide 10 mg/mL SDV 4mL 40 MG IVP (21:25)
[2019-05-22] VITALS (9 sets, daily range): BP systolic 116–125; BP diastolic 67–76; PULSE 84–88; RESP 17–22; TEMP 36.6–37.1; O2SAT 94–99
[2019-05-22] MEDS: ipratropium-albuterol 3 mL Neb INHALATION ×2 (02:36→09:17)
[2019-05-22 05:10] LABS: Basophils % 0.2 %; Eosinophils # 0.1 10^3/uL (0.0-0.8); Eosinophils % 0.9 %; Hematocrit 44.2 % (37.0-47.0); Hemoglobin 13.7 g/dL (11.5-15.3); Lymphocytes # 1.8 10^3/uL (0.8-4.8); Lymphocytes % 13.8 %; Mean Corpuscular Hemoglobin 27.3 pg (28.0-34.0); Mean Corpuscular Volume 88.2 fL (81-99); Mean Platelet Volume 12.2 fL (7.4-10.4); Monocytes % 7.6 %; Neutrophils # 9.7 10^3/uL (1.8-7.7); Neutrophils % 75.9 %; Nucleated Red Blood Cells % 0 %; Platelet Count 171 10^3/cmm (130-400); Red Blood Count 5.01 10^6/uL (4.1-5.3); Red Cell Distribution Width 15.5 % (12.1-15.1); White Blood Count 12.8 10^3/uL (4.0-10.0)
[2019-05-22 05:29] LABS: Alanine Aminotransferase 26 U/L (0-33); Albumin Level 3.4 g/dL (3.5-5.2); Alkaline Phosphatase 88 IU/L (35-105); Aspartate Amino Transferase 46 U/L (0-32); Blood Urea Nitrogen 33 mg/dL (8-23); Calcium 8.2 mg/dL (8.5-10.5); Carbon Dioxide 33 mmol/L (22-29); Chloride 91 mmol/L (98-107); Globulin 3.9 g/dL (1.3-4.6); Glomerular Filtration Rate 71.8 mL/min (90-130); Glucose 160 mg/dL (65-115); Sodium 141 mmol/L (136-145); Total Bilirubin 0.6 mg/dL (0.15-1.2); Total Protein 7.3 g/dL (6.6-8.7)
[2019-05-22] MEDS: cefTRIAXone 1,000 MG in sodium chloride 0.9% (plus) 50 ML 100 MG IV (06:02)
[2019-05-22 06:35] LABS: Glucose Point of Care 145 mg/dL (70-110)
[2019-05-22] MEDS: roflumilast 500 mcg Tablet PO (08:05)
[2019-05-22] MEDS: gabapentin 300 mg Capsule PO (08:05)
[2019-05-22] MEDS: aspirin 325 mg Tablet PO (08:05)
[2019-05-22] MEDS: levETIRAcetam 500 mg Tablet PO (08:05)
[2019-05-22] MEDS: venlafaxine ER (24HR) 75 mg Capsule PO (08:05)
[2019-05-22] MEDS: FUROsemide 10 mg/mL SDV 4mL 40 MG IVP (09:15)
[2019-05-22] MEDS: budesonide 0.5 mg/2 mL Neb INHALATION (09:17)
[2019-05-22 11:06] LABS: Glucose Point of Care 289 mg/dL (70-110)
[2019-05-22] MEDS: nicotine 14 mg Patch 1 PATCH TRANSDERMA (12:17)
--- NOTE | 2019-05-22 12:45 | PC.NURSE ---
Report called to [facility], spoke with Miriam SOLO
--- NOTE | 2019-05-22 13:27 | PM.DCS ---
Discharge Providers Date of Admission: 05/16/19 13:35 Date of Discharge: May 22, 2019 Attending Provider at Admission: Yariel Leija MD Attending Provider at Discharge: Gladys Salcedo MD Primary Care Provider: Tashi Acosta MD Diagnoses at Discharge Discharge Diagnosis (1) Respiratory failure: Status: Acute (2) Acute diastolic heart failure: Status: Acute (3) COPD exacerbation: Status: Acute (4) Elevated troponin: Status: Acute (5) Elevated lipase: Status: Acute (6) Leukocytosis: Status: Acute (7) Streptococcal bacteremia: Status: Acute Reason for Visit Reason for Visit: Reason For Visit: HEADACHE, VOMITING Hospital Course Discharge Summary: Yaquelin Loera is a 64 year old female that presented to the emergency department with headache, vomiting, shortness of breath and rapidly developed worseing respiratory failure on day of admission that required her to be intubated and on ventilatory support. Overall impression for decompensation appeared to be diastolic heart failure treated with iv diuresis with lasix. She has a h/o COPD and also received iv steroids, duonebs and pulmicort inhalation with improvement in symptoms. There was concern she may have aspirated as well. CT of the chest on did not show ant gross consolidation. Significant diagnostic w/up included positive blood culture x 2 sets on 05/16 for streptococcus pneumonaie. Initially to receive antibiotic treatment with cefepime and vancomycin, this was later switched to ceftriaxone with recovery of blood culture and sensitivities. Her white count upon admission was 46.5, trended down to 12.8 at the time of discharge. Patient was extubated on 05/20/2019 and has been hemodynamically stable. She is currently saturating well between 94 to 98% on 2 L/min nasal cannula. She received a PICC line on 332 continue IV antibiotic treatment with ceftriaxone for strep pneumo bacteremia for total duration of 14 days. Because of prior history of valvular heart disease by way of MR, there was concern possibly for endocarditis, a OMAR was performed on and was negative for any vegetations. She is significantly improved at time of discharge and will make a transition to a half-way to complete her IV course. She is currently on diuresis with Lasix and this will need to be monitored and adjusted as an outpatient as well. Physical Exam Narrative: EXAM NARRATIVE: GEN: Awake, alert and oriented, no acute distress CVS: S1S2 N RS: CTA B/L Abd: Soft, nt/nd , bs+ INTERLOCKER: no focal neuro deficits Urinary Catheter Management^: Garza: Cath Placed During This Visit: yes Urethral Indwelling: Yes Reason for Continuing Indwelling Catheter: Acute Urinary Retention or Obstruction Urinary Catheter Date of Insertion: 05/16/19 Urinary Catheter Time of Insertion: 14:40 Discharge Data Data Completed and Pending: Completed Studies During Hospitalization Category Date Time Status CT abdomen pelvis w con* 17962 Stat Cat Scan 05/16/19 13:[address] chest wo con 7 1250 Routine Cat Scan 05/20/19 08:[address] head wo con* 7 0450 Routine Cat Scan 05/19/19 15:[address] head wo con* 7 0450 Stat Cat Scan 05/16/19 11:23 Completed XR chest 1V lanre ble 69607 Routine Exams 05/17/19 07:29 Completed XR chest 1V lanre ble [id number] Routine Exams 05/18/19 07:59 Completed XR chest 1V lanre ble 45839 Routine Exams 05/19/19 07:19 Completed XR chest 1V lanre ble 32433 Stat Exams 05/16/19 12:53 Completed XR chest 1V lanre ble 29877 Stat Exams 05/21/19 13:10 Completed XR chest 1V lanre ble 36001 Urgent Exams 05/16/19 Completed CV echo complete* [id number] Routine Ultrasound 05/17/19 Completed CV echo transesop hageal 57179 Routi ne Ultrasound 05/19/19 08:30 Completed Pending at discharge Category Date Time Status Arterial Blood Ga s W/O Coox Routine Lab 05/16/19 17:38 Ordered Blood Culture Sta t Lab 05/18/19 03:53 Results Blood Culture Sta t Lab 05/20/19 10:21 Results Sputum Culture an d Gram Stain Routi ne Lab 05/16/19 17:32 Uncollected Labs from last 24 hours 05/22/19 05/22/19 05/22/19 10:56 06:18 04:21 WBC RBC Hgb Hct MCV MCH MCHC RDW Plt Count MPV Neut % (Auto) Lymph % (Auto) [place] % (Auto) Eos % (Auto) Baso % (Auto) Neut # (Auto) Lymph # (Auto) [place] # (Auto) Eos # (Auto) Baso # (Auto) Nucleated RBC % (a uto) Nucleated RBCs # Sodium 141 Potassium 3.0 L Chloride 91 L Carbon Dioxide 33 H Anion Gap 20.0 H BUN 33 H Creatinine 0.8 GFR Calculation 71.8 L Glucose 160 H POC Glucose 289 145 Calcium 8.2 L Total Bilirubin 0.6 AST 46 H ALT 26 Alkaline Phosphata se 88 Total Protein 7.3 Albumin 3.4 L Globulin 3.9 05/22/19 05/21/19 05/21/19 04:21 21:11 16:52 WBC 12.8 H RBC 5.01 Hgb 13.7 Hct 44.2 MCV 88.2 MCH 27.3 L MCHC 31.0 RDW 15.5 H Plt Count 171 MPV 12.2 H Neut % (Auto) 75.9 Lymph % (Auto) 13.8 [place] % (Auto) 7.6 Eos % (Auto) 0.9 Baso % (Auto) 0.2 Neut # (Auto) 9.7 H Lymph # (Auto) 1.8 [place] # (Auto) 1.0 H Eos # (Auto) 0.1 Baso # (Auto) 0.0 Nucleated RBC % (a uto) 0 Nucleated RBCs # 0.0 Sodium Potassium Chloride Carbon Dioxide Anion Gap BUN Creatinine GFR Calculation Glucose POC Glucose 155 224 Calcium Total Bilirubin AST ALT Alkaline Phosphata se Total Protein Albumin Globulin 05/21/19 05/21/19 16:34 15:19 WBC 12.6 H RBC 4.99 Hgb 13.6 Hct 43.9 MCV 88.0 MCH 27.3 L MCHC 31.0 RDW 15.6 H Plt Count 161 MPV 12.2 H Neut % (Auto) 75.5 Lymph % (Auto) 12.9 [place] % (Auto) 9.8 Eos % (Auto) 0.6 Baso % (Auto) 0.1 Neut # (Auto) 9.5 H Lymph # (Auto) 1.6 [place] # (Auto) 1.2 H Eos # (Auto) 0.1 Baso # (Auto) 0.0 Nucleated RBC % (a uto) 0 Nucleated RBCs # 0.0 Sodium 135 L Potassium [employer] Chloride 92 L Carbon Dioxide 30 H Anion Gap [employer] BUN 40 H Creatinine 0.9 GFR Calculation 62.6 L Glucose 254 H POC Glucose Calcium 8.2 L Total Bilirubin 0.4 AST 59 H ALT 28 Alkaline Phosphata se 91 Total Protein 7.8 Albumin 3.4 L Globulin 4.4 Vitals: Last Vital Signs Temp 98.4 F 05/22/19 11:52 Pulse 86 05/22/19 11:52 Resp 22 H 05/22/19 11:52 BP 122/76 05/22/19 11:52 Pulse Ox 98 05/22/19 11:52 Discharge Plan Discharge Patient Disposition: Xfer SNF Condition: Stable Prescriptions: New levetiracetam 500 mg Tablet 500 mg PO QAM 30 Days Qty: 30 RF: 0 levetiracetam 500 mg Tablet 1,000 mg PO QPM 30 Days Qty: 60 RF: 0 ceftriaxone 1 gram recon soln 1 gm IV DAILY 8 Days Qty: 8 RF: 0 Continued Tresiba FlexTouch U-100 100 unit/mL (3 mL) insulin pen 10 unit SUBCUT BEDTIME RF: 0 Actos See Rx Instructions .ROUTE .COMPLEX RF: 0 venlafaxine 75 mg Tablet 75 mg PO DAILY RF: 0 Novolog U-100 Insulin aspart 100 unit/mL solution See Rx Instructions .ROUTE .COMPLEX RF: 0 losartan 25 mg tablet 25 mg PO DAILY RF: 0 Debrox 6.5 % Drops See Rx Instructions .ROUTE .COMPLEX RF: 0 Vitamin D3 25 mcg (1,000 unit) Tablet 25 mcg PO DAILY RF: 0 Januvia 100 mg Tablet 100 mg PO DAILY RF: 0 Flonase Sensimist 27.5 mcg/actuation [place],Suspension 1 spray INTRANASAL DAILY RF: 0 Daliresp 500 mcg tablet 500 mcg PO DAILY RF: 0 Trelegy Ellipta 100-62.5-25 mcg blister with device See Rx Instructions .ROUTE .COMPLEX RF: 0 Ozempic See Rx Instructions .ROUTE .COMPLEX RF: 0 ipratropium-albuterol 0.5 mg-3 mg(2.5 mg base)/3 mL Solution For Nebulization 3 ml INHALATION Q4H PRN (Reason: Shortness Of Breath) RF: 0 Tylenol Extra Strength 500 mg Tablet 1,000 mg PO Q4H PRN (Reason: Pain) RF: 0 Milk of Magnesia 400 mg/5 mL Suspension See Rx Instructions .ROUTE .COMPLEX RF: 0 calcitonin (salmon) 200 unit/actuation spray,non-aerosol See Rx Instructions .ROUTE .COMPLEX RF: 0 Dulcolax (bisacodyl) 10 mg Suppository See Rx Instructions .ROUTE .COMPLEX RF: 0 nystatin 100,000 unit/gram Cream 1 applic TOPICAL BID RF: 0 Fleet Enema 19-7 gram/118 mL Enema See Rx Instructions .ROUTE .COMPLEX RF: 0 gabapentin 300 mg capsule 300 mg PO TID RF: 0 Dulcolax (bisacodyl) 5 mg Tablet,Delayed Release (Dr/Ec) 5 mg PO DAILY PRN (Reason: Constipation) RF: 0 ondansetron 4 mg Tablet,Disintegrating 4 mg PO Q4H PRN (Reason: Nausea And Vomiting) RF: 0 Vistaril 25 mg Capsule See Rx Instructions .ROUTE .COMPLEX RF: 0 rosuvastatin 40 mg tablet 40 mg PO BEDTIME RF: 0 melatonin 5 mg Tablet 5 mg PO BEDTIME RF: 0 nicotine 7 mg/24 hr Patch 24 Hour 1 patch TRANSDERMAL Q24H RF: 0 Changed Lasix 40 mg Tablet 40 mg PO BID Qty: 0 RF: 0 Discontinued levetiracetam 500 mg tablet See Rx Instructions .ROUTE .COMPLEX RF: 0 Discharge Orders: Discharge Order (Routine); Ordered 05/22/19 Ordered By: Gladys Salcedo Referrals: [facility] [Outside] Tashi Acosta MD [Primary Care Provider] - 4-7 days Discharge Diet: Soft Mechanical Discharge Activity: Resume usual activity Patient Instructions: COPD, Ceftriaxone (Injection), Levetiracetam (By mouth), Heart Failure (DC), Mitral Regurgitation (DC), CHF Stoplight, COPD Stoplight Discharge Attestations Time Spent in Discharge Care*: greater than 30 min Quality Metrics Clinical Quality Measures During this hospital stay, did patient experience: None Coding Level of Care Code Acute Waste Machine Operator for g Fwd Diagnoses Respiratory failure J96.90 Acute diastolic heart failure I50.31 COPD exacerbation J44.1 Elevated troponin R79.89 Elevated lipase R74.8 Leukocytosis D72.829 Streptococcal bacteremia R78.81; B95.5
== END 2019-05-22 14:30 | disposition skilled nursing facility (03) | DRG 208 ==
LOC: ER 16:59 → ICU 17:01 → MEDSURG 05-21 18:05
PROVIDERS: Hospitalist; Internal Medicine Cardiovascular Disease; Admitting Provider Internal Medicine; Emergency Provider Family Medicine; Family Provider Family Medicine; PCP Family Medicine; Visit Provider Student in an Organized Health Care Education/Training Program
DX: J96.90 Respiratory failure, unspecified, unspecified whether with hypoxia or hypercapnia (principal); I50.33 Acute on chronic diastolic (congestive) heart failure; J44.1 Chronic obstructive pulmonary disease with (acute) exacerbation; E66.2 Morbid (severe) obesity with alveolar hypoventilation; Z68.42 Body mass index [BMI] 45.0-49.9, adult; I42.8 Other cardiomyopathies; N17.9 Acute kidney failure, unspecified; B95.5 Unspecified streptococcus as the cause of diseases classified elsewhere; D72.829 Elevated white blood cell count, unspecified; R79.89 Other specified abnormal findings of blood chemistry; R74.8 Abnormal levels of other serum enzymes; F32.9 Major depressive disorder, single episode, unspecified; F41.9 Anxiety disorder, unspecified; E78.5 Hyperlipidemia, unspecified; I08.1 Rheumatic disorders of both mitral and tricuspid valves; E11.9 Type 2 diabetes mellitus without complications; I25.10 Atherosclerotic heart disease of native coronary artery without angina pectoris; F17.210 Nicotine dependence, cigarettes, uncomplicated
CPT/HCPCS: 12345; 31500; 36415; 36416; 36569; 36592; 36600; 51702; 70450; 71045; 71250; 74177; 80051; 80053; 80202; 80500; 81001; 82009; 82803; 82810; 82962; 83690; 83880; 83986; 84484; 85025; 87040; 87070; 87077; 87186; 87205; 87804; 92523; 92526; 92610; 93005; 93306; 93312; 93320; 93325; 94002; 94003; 94618; 94640; 94799; 96105; 96372; 96374; 96375; 97110; 97116; 97162; 97530; 99285; J0330; J0456; J0692; J0696; J1650; J1815; J1940; J2405; J2704; J2920; J2930; J3010; J3370; J3480; J3490; J7030; J7050; J7626; Q9967; S0030

== ENCOUNTER 2019-05-31 14:11 | Emergency (ER) | payer MEDICARE, MEDICAID, SELFPAY ==
[2019-05-31 14:12] VITALS: BP 104/73; PULSE 88; RESP 18; TEMP 36.3; O2SAT 95; BMI 48.9
--- NOTE | 2019-05-31 14:34 | XRR_ITS ---
PROCEDURE INFORMATION: Exam: XR Chest, 1 View Exam date and time: 05/31/2019 2:35 PM Age: 64 years old Clinical indication: Shortness of breath; Additional info: Weakness TECHNIQUE: Imaging protocol: XR of the chest Views: 1 view. COMPARISON: CR XR chest 1V portable [id number] 05/21/2019 1:26 PM FINDINGS: Lungs: There is opacification at the left lung base. Pleural space: Unremarkable. No pleural effusion. No pneumothorax. Heart/Mediastinum: Cardiomegaly. Bones/joints: Degenerative changes of the spine. XR/XR chest 1V portable [id number] IMPRESSION: Opacification at the left lung base representing infiltrates/pneumonia.
--- NOTE | 2019-05-31 14:35 | ED_ITS ---
Entered by Vickie Gaitan, acting as scribe for Prasanth Johnson DO HPI - Weakness General: Chief complaint: Weakness Stated complaint: GENERAL WEAKNESS Time Seen by Provider: 05/31/19 14:34 Source: patient Mode of arrival: EMS Limitations: no limitations History of Present Illness: HPI Narrative: 64 yo Female presents to ED with complaint of weakness and lower extremity pain. Pt states that she hit her call light to get help getting up because she has had weakness in her legs and she was sent here by the facility nurse. Pt states that she has not been smoking for 6 days and she is wearing a nicotine patch. MD Complaint: generalized weakness and difficulty walking Onset (ago): day(s) Duration: constant Location: LLE and RLE Migration: none Relieving factors: none Exacerbating factors: none Associated symptoms: Reports no associated symptoms Review of Systems General: Reports: 10 or more systems reviewed and unremarkable except in HPI and below Neuro: Reports: weakness in extremities and difficulty walking [facility] ED PFSH: Medical History Acute on chronic diastolic (congestive) heart failure Cataract fragments in eye following surgery COPD (chronic obstructive pulmonary disease) Decompensated COPD with exacerbation (chronic obstructive pulmonary disease) Depression Diastolic congestive heart failure Hypercalcemia Elevated parathyroid hormone level in the past, 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 Hyperlipidemia Hypertension Moderate to severe mitral regurgitation Nonischemic cardiomyopathy Obesity Obstructive sleep apnea Pulmonary hypertension Seizure disorder Tricuspid regurgitation Type 2 diabetes mellitus Surgical History H/O mitral valve replacement History of Ulnar nerve compression Family History Other CAD (coronary artery disease) Social History Smoking and tobacco status: former smoker Alcohol intake: never Physical Exam Const: COMMON NORMALS: no apparent distress, average body habitus, oriented x3 , no limitations, healthy appearing, alert and well nourished HENMT: COMMON NORMALS: normocephalic, head/scalp atraumatic, hearing grossly normal bilaterally, external ears normal, EAC's normal, TM's normal bilaterally, external nose normal, nasal mucous membranes and turbinates normal, moist oral mucous membranes, oropharynx normal, dentition normal and gingiva normal HEAD & SCALP: normocephalic and atraumatic NOSE: external nose normal and nasal mucous membranes and turbinates normal EXTERNAL EAR: Yes external ears normal EXTERNAL AUDITORY CANAL: EAC's normal TYMPANIC MEMBRANE: TM's normal bilaterally Eye: COMMON NORMALS: PERRL, EOMs intact bilaterally, conjunctivae normal, no scleral icterus, no papilledema, normal visual coleman by confrontation and fundi normal bilaterally CONJUNCTIVA: Yes conjunctivae normal PUPIL: Yes PERRL DIRECT OPHTHALMOSCOPY: Yes no papilledema and Yes fundi normal bilaterally Neck/C-Spine: COMMON NORMALS: full ROM, no lymphadenopathy, supple, no meningeal signs, no JVD, thyroid normal and no carotid bruits THYROID: thyroid normal Chest: COMMONS NORMALS: inspection of chest normal and palpation of chest normal Resp: COMMON NORMALS: normal respiratory effort, no retractions, no use of accessory muscles, clear to auscultation bilaterally and percussion normal AUSCULTATION: clear to auscultation bilaterally PERCUSSION: percussion normal Cardio: COMMON NORMALS: no JVD, regular rate, regular rhythm, S1 normal heart sound, S2 normal heart sound, no gallops, no clicks, no murmurs, no rub and peripheral pulses 2+ throughout RATE: regular rate RHYTHM: regular rhythm HEART SOUNDS: S1 normal and S2 normal PERIPHERAL PULSES: pulses 2+ throughout GI: COMMON NORMALS: normal to inspection, nondistended, normoactive bowel sounds, soft to palpation, non-tender, no hepatosplenomegaly, no masses and no bruits PALPATION: Yes soft and Yes no hepatosplenomegaly : COMMON NORMALS: Yes no CVA tenderness and Yes external appearance normal BLADDER/KIDNEY EXAM: Yes no CVA tenderness Back/Pelvis: COMMON NORMALS: no CVA tenderness, thoracic and lumbar spine normal to inspection, no thoracic nor lumbar tenderness, thoraco-lumbar ROM normal and straight leg raise negative bilaterally Extremity: COMMON NORMALS: normal to inspection, full ROM, normal capillary refill, no joint enlargement, no clubbing, cyanosis or edema, no calf tenderness and no pedal edema Neuro: COMMON NORMALS: oriented x3 SENSORIUM/ORIENTATION: Yes alert MENINGEAL SIGNS: Yes no meningeal signs Skin: COMMON NORMALS: no rashes or lesions noted, no wounds, skin turgor normal, no jaundice, no petechiae and no mottling GENERAL SKIN EXAM: no rashes or lesions noted and turgor normal Course Vital Signs: Vital signs: Vital Signs Temperature 97.4 F L 05/31/19 14:12 Pulse Rate 91 05/31/19 17:24 Respiratory Rate 18 05/31/19 17:24 Blood Pressure 95/64 05/31/19 17:24 Pulse Oximetry 100 05/31/19 17:24 MDM - Weakness Lab Data: Labs: Lab Results 05/31/19 05/31/19 05/31/19 Range/Units 15:30 15:40 15:40 WBC 7.9 (4.0-10.0) 10^3/ uL RBC 4.69 (4.1-5.3) 10^6/u L Hgb 13.4 (11.5-15.3) g/dL Hct 44.9 (37.0-47.0) % MCV 95.7 (81-99) fL MCH 28.6 (28.0-34.0) pg MCHC 29.8 L (30.0-36.0) g/dL RDW 14.8 (12.1-15.1) % Plt Count 192 (130-400) 10^3/c mm MPV 11.5 H (7.4-10.4) fL Neut % (Auto) 64.8 % Lymph % (Auto) 17.8 % [place] % (Auto) 12.9 % Eos % (Auto) 3.5 % Baso % (Auto) 0.6 % Neut # (Auto) 5.1 (1.8-7.7) 10^3/u L Lymph # (Auto) 1.4 (0.8-4.8) 10^3/u L [place] # (Auto) 1.0 H (0.2-0.9) 10^3/u L Eos # (Auto) 0.3 (0.0-0.8) 10^3/u L Baso # (Auto) 0.1 (0.0-0.1) 10^3/u L Nucleated RBC % (a uto) 0 % Nucleated RBCs # 0.0 /100WBC Sodium 138 (136-145) mmol/L Potassium 3.5 (3.5-5.1) mmol/L Chloride 91 L (98-107) mmol/L Carbon Dioxide 35 H (22-29) mmol/L Anion Gap 15.5 (5-19) BUN 13 (8-23) mg/dL Creatinine 0.8 (0.5-0.9) mg/dL GFR Calculation 71.8 L (90-130) mL/min Glucose 126 H (65-115) mg/dL Calculated Osmolal ity 284 L (285-295) mOsm/k g Lactate (0.5-2.2) mmol/L Calcium 10.4 (8.5-10.5) mg/dL Total Bilirubin 0.4 (0.15-1.2) mg/dL AST 18 (0-32) U/L ALT 20 (0-33) U/L Alkaline Phosphata se 105 (35-105) IU/L Total Protein 7.2 (6.6-8.7) g/dL Albumin 3.6 (3.5-5.2) g/dL Globulin 3.6 (1.3-4.6) g/dL Urine Color Yellow (Yellow) Urine Appearance Hazy A (CLEAR) Urine pH 9 H (5-7) Ur Specific Gravit y 1.015 (1.005-1.030) Urine Protein Neg (Negative) Urine Glucose (UA) Norm (Normal) Urine Ketones Negative (Negative) Urine Blood Neg (Negative) Urine Nitrate Negative (Negative) Urine Bilirubin Neg (NEGATIVE) Prot Sulfosalicyli c Acd Negative Urine Urobilinogen Norm (Negative) mg/dL Ur Leukocyte Salima ase Negative (Negative) Urine RBC None (0-2) /hpf Urine WBC None (0-5) /hpf Ur Squamous Epith Cells 0-4 H (0-5) Urine Bacteria 1+ H (NONE) Fine Granular Cast s Rare /lpf Urine Mucus 1+ Influenza Type A A g (Negative) POC Influenza B Ag (Negative) 05/31/19 05/31/19 Range/Units 15:40 17:07 WBC (4.0-10.0) 10^3/ uL RBC (4.1-5.3) 10^6/u L Hgb (11.5-15.3) g/dL Hct (37.0-47.0) % MCV (81-99) fL MCH (28.0-34.0) pg MCHC (30.0-36.0) g/dL RDW (12.1-15.1) % Plt Count (130-400) 10^3/c mm MPV (7.4-10.4) fL Neut % (Auto) % Lymph % (Auto) % [place] % (Auto) % Eos % (Auto) % Baso % (Auto) % Neut # (Auto) (1.8-7.7) 10^3/u L Lymph # (Auto) (0.8-4.8) 10^3/u L [place] # (Auto) (0.2-0.9) 10^3/u L Eos # (Auto) (0.0-0.8) 10^3/u L Baso # (Auto) (0.0-0.1) 10^3/u L Nucleated RBC % (a uto) % Nucleated RBCs # /100WBC Sodium (136-145) mmol/L Potassium (3.5-5.1) mmol/L Chloride (98-107) mmol/L Carbon Dioxide (22-29) mmol/L Anion Gap (5-19) BUN (8-23) mg/dL Creatinine (0.5-0.9) mg/dL GFR Calculation (90-130) mL/min Glucose (65-115) mg/dL Calculated Osmolal ity (285-295) mOsm/k g Lactate 2.2 (0.5-2.2) mmol/L Calcium (8.5-10.5) mg/dL Total Bilirubin (0.15-1.2) mg/dL AST (0-32) U/L ALT (0-33) U/L Alkaline Phosphata se (35-105) IU/L Total Protein (6.6-8.7) g/dL Albumin (3.5-5.2) g/dL Globulin (1.3-4.6) g/dL Urine Color (Yellow) Urine Appearance (CLEAR) Urine pH (5-7) Ur Specific Gravit y (1.005-1.030) Urine Protein (Negative) Urine Glucose (UA) (Normal) Urine Ketones (Negative) Urine Blood (Negative) Urine Nitrate (Negative) Urine Bilirubin (NEGATIVE) Prot Sulfosalicyli c Acd Urine Urobilinogen (Negative) mg/dL Ur Leukocyte Salima ase (Negative) Urine RBC (0-2) /hpf Urine WBC (0-5) /hpf Ur Squamous Epith Cells (0-5) Urine Bacteria (NONE) Fine Granular Cast s /lpf Urine Mucus Influenza Type A A g Negative (Negative) POC Influenza B Ag Negative (Negative) Imaging Data^: CXR: Radiologist's impression: [place] [address] XRay Report Signed Patient: Yaquelin Loera #: [id number] : 1955cct#:[id number] Age/Sex: 64 / FADM Date: 05/31/19 Loc: ERRoom/Bed: Attending Dr: Ordering Provider/Ordering MD: Prasanth Johnson DO Date of Service: 05/31/19 Procedure(s): XR chest 1V portable [id number] Accession Number(s): [id number] Report Number: [id number] PROCEDURE INFORMATION: Exam: XR Chest, 1 View Exam date and time: 05/31/2019 2:35 PM Age: 64 years old Clinical indication: Shortness of breath; Additional info: Weakness TECHNIQUE: Imaging protocol: XR of the chest Views: 1 view. COMPARISON: CR XR chest 1V portable [id number] 05/21/2019 1:26 PM FINDINGS: Lungs: There is opacification at the left lung base. Pleural space: Unremarkable. No pleural effusion. No pneumothorax. Heart/Mediastinum: Cardiomegaly. Bones/joints: Degenerative changes of the spine. XR/XR chest 1V portable [id number] IMPRESSION: Opacification at the left lung base representing infiltrates/pneumonia. Dictated By:Cesar Layton MD Signed By:Cesar Layton MDSigned Date/Time:05/31/19 1543 DD/ 1542 CT Head: Radiologist's impression: [place] [address] CT Scan Report Signed Patient: Yaquelin Loera #: [id number] : 4Acct#:[id number] Age/Sex: 64 / FADM Date: 05/31/19 Loc: ERRoom/Bed: Attending Dr: Ordering Provider/Ordering MD: Prasanth Johnson DO Date of Service: 05/31/19 Procedure(s): CT head wo con* [id number] Accession Number(s): [id number] Report Number: [id number] PROCEDURE INFORMATION: Exam: CT Head Without Contrast Exam date and time: 05/31/2019 2:35 PM Age: 64 years old Clinical indication: Altered mental status/memory loss; Confusion or disorientation; Additional info: Weakness TECHNIQUE: Imaging protocol: Computed tomography of the head without contrast. Total DLP: 859.52 mGy-cm Radiation optimization: All CT scans at this facility use at least one of these dose optimization techniques: automated exposure control; mA and/or kV adjustment per patient size (includes targeted exams where dose is matched to clinical indication); or iterative reconstruction. COMPARISON: CT head wo con* [id number] 05/19/2019 5:09 PM FINDINGS: Brain: There are mild periventricular and subcortical lucencies consistent with chronic microvascular ischemic changes. Ventricles: Ventricles and sulci are prominent consistent with age appropriate parenchymal volume loss. Bones/joints: Unremarkable. No acute fracture. Sinuses: Visualized sinuses are unremarkable. No fluid levels. Mastoid air cells: Opacification of the right mastoid air cells. Soft tissues: Unremarkable. CT/CT head wo con* [id number] IMPRESSION: No acute intracranial abnormality. Chronic microvascular ischemic changes. Radiation Dose CTDIVOL = (mGy): DLP = 859.52 (mGy-cm) Dictated By:Cesar Layton MD Signed By:Cesar Layton MDSigned Date/Time:05/31/191541 DD/ 1541 Discharge Plan Discharge Patient Disposition: Home, Self-Care Clinical Impression: Bronchitis, Weakness Condition: Stable Prescriptions: New Zithromax Z-Mikie 250 mg tablet See Rx Instructions .ROUTE .COMPLEX Qty: 6 RF: 0 No Action Tresiba FlexTouch U-100 100 unit/mL (3 mL) insulin pen 10 unit SUBCUT BEDTIME RF: 0 insulin aspart U-100 [Novolog U-100 Insulin aspart] 100 unit/mL solution See Rx Instructions .ROUTE .COMPLEX RF: 0 losartan 25 mg tablet 25 mg PO DAILY RF: 0 carbamide peroxide [Debrox] 6.5 % Drops See Rx Instructions .ROUTE .COMPLEX RF: 0 cholecalciferol (vitamin D3) [Vitamin D3] 25 mcg (1,000 unit) Tablet 25 mcg PO DAILY RF: 0 Januvia 100 mg Tablet 100 mg PO DAILY RF: 0 Flonase Sensimist 27.5 mcg/actuation [place],Suspension 1 spray INTRANASAL DAILY RF: 0 Daliresp 500 mcg tablet 500 mcg PO DAILY RF: 0 Trelegy Ellipta 100-62.5-25 mcg blister with device See Rx Instructions .ROUTE .COMPLEX RF: 0 Ozempic See Rx Instructions .ROUTE .COMPLEX RF: 0 ipratropium-albuterol 0.5 mg-3 mg(2.5 mg base)/3 mL Solution For Nebulization 3 ml INHALATION Q4H PRN (Reason: Shortness Of Breath) RF: 0 acetaminophen [Tylenol Extra Strength] 500 mg Tablet 1,000 mg PO Q4H PRN (Reason: Pain) RF: 0 magnesium hydroxide [Milk of Magnesia] 400 mg/5 mL Suspension See Rx Instructions .ROUTE .COMPLEX RF: 0 calcitonin (salmon) 200 unit/actuation spray,non-aerosol See Rx Instructions .ROUTE .COMPLEX RF: 0 bisacodyl [Dulcolax (bisacodyl)] 10 mg Suppository See Rx Instructions .ROUTE .COMPLEX RF: 0 nystatin 100,000 unit/gram Cream 1 applic TOPICAL BID RF: 0 Fleet Enema 19-7 gram/118 mL Enema See Rx Instructions .ROUTE .COMPLEX RF: 0 gabapentin 300 mg capsule 300 mg PO TID RF: 0 bisacodyl [Dulcolax (bisacodyl)] 5 mg Tablet,Delayed Release (Dr/Ec) 10 mg PO DAILY PRN (Reason: Constipation) RF: 0 ondansetron 4 mg Tablet,Disintegrating 4 mg PO Q4H PRN (Reason: Nausea And Vomiting) RF: 0 hydroxyzine pamoate [Vistaril] 25 mg Capsule See Rx Instructions .ROUTE .COMPLEX RF: 0 rosuvastatin 40 mg tablet 40 mg PO BEDTIME RF: 0 melatonin 5 mg Tablet 5 mg PO BEDTIME RF: 0 levetiracetam 500 mg Tablet 500 mg PO QAM 30 Days Qty: 30 RF: 0 levetiracetam 500 mg Tablet 1,000 mg PO QPM 30 Days Qty: 60 RF: 0 Actos 15 mg Tablet 7.5 mg PO DAILY RF: 0 venlafaxine 75 mg Capsule,Extended Release 24hr 75 mg PO DAILY RF: 0 nicotine 21 mg/24 hr Patch 24 Hour 1 patch TRANSDERMAL DAILY RF: 0 mupirocin 2 % Ointment See Rx Instructions .ROUTE .COMPLEX RF: 0 Saline Nasal 0.65 % Aerosol,[place] See Rx Instructions .ROUTE .COMPLEX RF: 0 Lasix 40 mg tablet 40 mg PO QAM RF: 0 Discharge Orders: Discharge Order (Routine); Ordered 05/31/19 Ordered By: Prasanth Johnson Referrals: Tashi Acosta MD [Primary Care Provider] - Coding Level of Care Code ED Environmental Conflict Manager for Chg Fwd Exam Comprehensive The documentation recorded by the Kandy restrepo Carmen, accurately reflects the service I personally performed and the decisions made by Alex dumont Donald P, May 31, 2019 14:11
[2019-05-31 14:51] VITALS: RESP 18; O2SAT 95
[2019-05-31 15:48] LABS: Basophils # 0.1 10^3/uL (0.0-0.1); Basophils % 0.6 %; Eosinophils # 0.3 10^3/uL (0.0-0.8); Eosinophils % 3.5 %; Hematocrit 44.9 % (37.0-47.0); Hemoglobin 13.4 g/dL (11.5-15.3); Lymphocytes # 1.4 10^3/uL (0.8-4.8); Lymphocytes % 17.8 %; Mean Corpuscular HGB Conc 29.8 g/dL (30.0-36.0); Mean Corpuscular Hemoglobin 28.6 pg (28.0-34.0); Mean Corpuscular Volume 95.7 fL (81-99); Mean Platelet Volume 11.5 fL (7.4-10.4); Monocytes % 12.9 %; Neutrophils # 5.1 10^3/uL (1.8-7.7); Neutrophils % 64.8 %; Nucleated Red Blood Cells % 0 %; Platelet Count 192 10^3/cmm (130-400); Red Blood Count 4.69 10^6/uL (4.1-5.3); Red Cell Distribution Width 14.8 % (12.1-15.1); White Blood Count 7.9 10^3/uL (4.0-10.0)
[2019-05-31 15:52] LABS: Urine Appearance Hazy (CLEAR); Urine Color Yellow (Yellow)
[2019-05-31 15:53] LABS: Add Urine Microscopic? YES; Bilirubin Urine Neg (NEGATIVE); Blood Urine Neg (Negative); Glucose Urine UA Norm (Normal); Ketones Urine Negative (Negative); Leukocyte Esterase Urine Negative (Negative); Nitrate Urine Negative (Negative); Protein Urine Neg (Negative); Specific Gravity, Urine 1.015 (1.005-1.030); Sulfosalicylic Acid Urine Negative; Urobilinogen Urine Norm (Negative); pH Urine 9 (5-7)
[2019-05-31 15:54] LABS: Bacteria Urine 1+; Fine Granular Casts Urine RARE /lpf; Mucus Urine 1+; Squamous Epithelial Cell Urine 0-4 (0-5)
[2019-05-31 15:55] LABS: Add Urine Culture? No
[2019-05-31 16:01] LABS: Alanine Aminotransferase 20 U/L (0-33); Albumin Level 3.6 g/dL (3.5-5.2); Alkaline Phosphatase 105 IU/L (35-105); Anion Gap 15.5 (5-19); Aspartate Amino Transferase 18 U/L (0-32); Blood Urea Nitrogen 13 mg/dL (8-23); Calcium 10.4 mg/dL (8.5-10.5); Carbon Dioxide 35 mmol/L (22-29); Chloride 91 mmol/L (98-107); Globulin 3.6 g/dL (1.3-4.6); Glomerular Filtration Rate 71.8 mL/min (90-130); Glucose 126 mg/dL (65-115); Osmolality Calculated 284 mOsm/kg (285-295); Potassium 3.5 mmol/L (3.5-5.1); Sodium 138 mmol/L (136-145); Total Bilirubin 0.4 mg/dL (0.15-1.2); Total Protein 7.2 g/dL (6.6-8.7)
[2019-05-31 16:02] LABS: Lactate (Lactic Acid level) 2.2 mmol/L (0.5-2.2)
[2019-05-31 16:07] VITALS: RESP 17
[2019-05-31] MEDS: cefTRIAXone 1,000 mg SDV 1000 MG IM (16:27)
[2019-05-31] MEDS: lidocaine 1% INJ 20 mL 2.1 ML IM (16:27)
[2019-05-31 17:24] VITALS: BP 95/64; PULSE 91; RESP 18; O2SAT 100
[2019-05-31 17:51] LABS: Influenza A by IFA Negative (Negative); Influenza B by IFA Negative (Negative)
[2019-05-31] MEDS: ondansetron 4 MG Tablet PO (18:12)
[2019-05-31 18:19] VITALS: BP 107/92; PULSE 92; RESP 16; O2SAT 100
== END 2019-05-31 18:21 | disposition home or self-care (01) ==
PROVIDERS: Emergency Provider Family Medicine; Family Provider Family Medicine; PCP Family Medicine
DX: J40 Bronchitis, not specified as acute or chronic (principal); R53.1 Weakness; I11.0 Hypertensive heart disease with heart failure; I50.33 Acute on chronic diastolic (congestive) heart failure; J44.9 Chronic obstructive pulmonary disease, unspecified; E78.5 Hyperlipidemia, unspecified; I42.8 Other cardiomyopathies; E11.9 Type 2 diabetes mellitus without complications; G40.909 Epilepsy, unspecified, not intractable, without status epilepticus; E66.9 Obesity, unspecified; Z79.4 Long term (current) use of insulin; Z87.891 Personal history of nicotine dependence; Z68.42 Body mass index [BMI] 45.0-49.9, adult
CPT/HCPCS: 12345; 36415; 70450; 71045; 80053; 81001; 83605; 85025; 87804; 96372; 99283; 99284; J0696; J2001; Q0162

== ENCOUNTER 2019-06-03 19:20 | Emergency (ER) | payer MEDICARE, MEDICAID, SELFPAY ==
[2019-06-03 19:21] VITALS: BP 94/76; PULSE 89; RESP 16; TEMP 36.7; O2SAT 95; BMI 47.5
--- NOTE | 2019-06-03 19:33 | W.ED.HA ---
HPI - Headache General: Chief Complaint: Headache Stated Complaint: Head pain post fall Time Seen by Provider: 06/03/19 19:27 History of Present Illness: HPI Narrative: 64 yo female lives at a supervised living/independent living setting. She states she fell and hit the back of her head. She was stunned is questionable as to whether or not she actually fully lost consciousness at any point. She denies any vomiting or diarrhea. Denies any other injuries or pain. She is awake and alert when seen. MD elicited complaint: headache Associated symptoms: Deny chest pain, fever(s), malaise, nausea, rash or vomiting Review of Systems Const: Denies: fever, chills, body aches, change in appetite, fatigue or malaise ENMT: Denies: throat pain, ear pain, nasal discharge or nasal congestion Card: Denies: chest pain, edema, shortness of breath on exertion or shortness of breath when lying down Resp: Denies: shortness of breath, productive cough or non-productive cough GI: Denies: abdominal pain, nausea, vomiting, vomiting blood, coffee grounds in vomit, diarrhea, constipation, bloating, blood in stool or black tarry stool : Denies: flank pain, difficulty urinating, painful urination, urinary frequency or urinary urgency Skin/Breast: Denies: rash or itching Neuro: Reports: headache PFSH ED PFSH: Social History Smoking and tobacco status: never smoked Alcohol intake: never Physical Exam Const: COMMON NORMALS: no apparent distress GENERAL APPEARANCE: cooperative and comfortable ORIENTATION/CONSCIOUSNESS: Yes awake, Yes oriented to person, Yes oriented to place and Yes oriented to time HENMT: COMMON NORMALS: normocephalic, head/scalp atraumatic, hearing grossly normal bilaterally, external ears normal, EAC's normal, TM's normal bilaterally, nasal mucous membranes and turbinates normal, moist oral mucous membranes and oropharynx normal HEAD & SCALP: normocephalic and atraumatic NOSE: nasal mucous membranes and turbinates normal EXTERNAL EAR: Yes external ears normal EXTERNAL AUDITORY CANAL: EAC's normal TYMPANIC MEMBRANE: TM's normal bilaterally Eye: COMMON NORMALS: PERRL, EOMs intact bilaterally, conjunctivae normal and no scleral icterus CONJUNCTIVA: Yes conjunctivae normal PUPIL: Yes PERRL Neck/C-Spine: COMMON NORMALS: full ROM, no lymphadenopathy, supple and no JVD Lymph: LYMPHATIC: no lymphadenopathy noted and no lymphedema noted Resp: COMMON NORMALS: normal respiratory effort, no retractions, no use of accessory muscles and clear to auscultation bilaterally AUSCULTATION: clear to auscultation bilaterally Cardio: COMMON NORMALS: no JVD, regular rate, regular rhythm and no murmurs RATE: regular rate RHYTHM: regular rhythm GI: COMMON NORMALS: soft to palpation and no hepatosplenomegaly AUSCULTATION: Yes normoactive bowel sounds PALPATION: Yes soft, No tender, No guarding and Yes no hepatosplenomegaly Extremity: COMMON NORMALS: normal to inspection, normal capillary refill, no clubbing, cyanosis or edema, no calf tenderness and no pedal edema Neuro: SENSORIUM/ORIENTATION: Yes oriented to person, Yes oriented to place and Yes oriented to time Skin: COMMON NORMALS: no rashes or lesions noted GENERAL SKIN EXAM: no rashes or lesions noted Course ED course: Patient had a C-spine plain films which were normal and a head CT is a question of the head CT of a severe mastoiditis eroding through a portion of the temporal bone and radiology recommended temporal bone CT based on those findings that was done I reviewed with Dr. Navarro he felt based on the description in the CT report that this is chronic. We will go ahead and start the patient on Ceftin ear and have him her follow-up with ENT in the next week. Vital Signs: Vital signs: Vital Signs Temperature 98.1 F 06/03/19 19:21 Pulse Rate 82 06/04/19 07:24 Respiratory Rate 18 06/04/19 07:24 Blood Pressure 126/61 06/04/19 07:24 Pulse Oximetry 91 06/04/19 07:24 MDM - Headache Lab Data: Attestation: I reviewed the patient's lab results. Labs: Lab Results 06/03/19 06/03/19 Range/Units 22:54 22:54 WBC 5.8 (4.0-10.0) 10^3/ uL RBC 4.36 (4.1-5.3) 10^6/u L Hgb 12.3 (11.5-15.3) g/dL Hct 40.4 (37.0-47.0) % MCV 92.7 (81-99) fL MCH 28.2 (28.0-34.0) pg MCHC 30.4 (30.0-36.0) g/dL RDW 14.8 (12.1-15.1) % Plt Count 178 (130-400) 10^3/c mm MPV 11.5 H (7.4-10.4) fL Neut % (Auto) 62.6 % Lymph % (Auto) 16.5 % [place] % (Auto) 16.6 % Eos % (Auto) 3.1 % Baso % (Auto) 0.7 % Neut # (Auto) 3.6 (1.8-7.7) 10^3/u L Lymph # (Auto) 1.0 (0.8-4.8) 10^3/u L [place] # (Auto) 1.0 H (0.2-0.9) 10^3/u L Eos # (Auto) 0.2 (0.0-0.8) 10^3/u L Baso # (Auto) 0.0 (0.0-0.1) 10^3/u L Nucleated RBC % (a uto) 0 % Nucleated RBCs # 0.0 /100WBC Sodium 134 L (136-145) mmol/L Potassium 3.6 (3.5-5.1) mmol/L Chloride 91 L (98-107) mmol/L Carbon Dioxide 29 (22-29) mmol/L Anion Gap 17.6 (5-19) BUN 12 (8-23) mg/dL Creatinine 0.7 (0.5-0.9) mg/dL GFR Calculation 83.7 L (90-130) mL/min Glucose 100 (65-115) mg/dL Calculated Osmolal ity 274 L (285-295) mOsm/k g Calcium 9.7 (8.5-10.5) mg/dL Total Bilirubin 0.6 (0.15-1.2) mg/dL AST 20 (0-32) U/L ALT 20 (0-33) U/L Alkaline Phosphata se 78 (35-105) IU/L Total Protein 7.1 (6.6-8.7) g/dL Albumin 3.7 (3.5-5.2) g/dL Globulin 3.4 (1.3-4.6) g/dL Imaging Data^: CT Head: My impression: CT of the head and CT of temporal bones reviewed with the read radiologist on the phone. Other Xray: Attestation: I personally reviewed and interpreted this imaging study as follows: My impression: C-spine reviewed unremarkable no evidence of acute fracture Discharge Plan Discharge Patient Disposition: Home, Self-Care Clinical Impression: Mastoiditis, Fall Condition: Stable Prescriptions: New cefdinir 300 mg capsule 300 mg PO Q12H 10 Days Qty: 20 RF: 0 No Action Tresiba FlexTouch U-100 100 unit/mL (3 mL) insulin pen 10 unit SUBCUT BEDTIME RF: 0 insulin aspart U-100 [Novolog U-100 Insulin aspart] 100 unit/mL solution See Rx Instructions .ROUTE .COMPLEX RF: 0 losartan 25 mg tablet 25 mg PO DAILY RF: 0 carbamide peroxide [Debrox] 6.5 % Drops See Rx Instructions .ROUTE .COMPLEX RF: 0 cholecalciferol (vitamin D3) [Vitamin D3] 25 mcg (1,000 unit) Tablet 25 mcg PO DAILY RF: 0 Januvia 100 mg Tablet 100 mg PO DAILY RF: 0 Flonase Sensimist 27.5 mcg/actuation [place],Suspension 1 spray INTRANASAL DAILY RF: 0 Daliresp 500 mcg tablet 500 mcg PO DAILY RF: 0 Trelegy Ellipta 100-62.5-25 mcg blister with device See Rx Instructions .ROUTE .COMPLEX RF: 0 Ozempic See Rx Instructions .ROUTE .COMPLEX RF: 0 ipratropium-albuterol 0.5 mg-3 mg(2.5 mg base)/3 mL Solution For Nebulization 3 ml INHALATION Q4H PRN (Reason: Shortness Of Breath) RF: 0 acetaminophen [Tylenol Extra Strength] 500 mg Tablet 1,000 mg PO Q4H PRN (Reason: Pain) RF: 0 magnesium hydroxide [Milk of Magnesia] 400 mg/5 mL Suspension See Rx Instructions .ROUTE .COMPLEX RF: 0 calcitonin (salmon) 200 unit/actuation spray,non-aerosol See Rx Instructions .ROUTE .COMPLEX RF: 0 bisacodyl [Dulcolax (bisacodyl)] 10 mg Suppository See Rx Instructions .ROUTE .COMPLEX RF: 0 nystatin 100,000 unit/gram Cream 1 applic TOPICAL BID RF: 0 Fleet Enema 19-7 gram/118 mL Enema See Rx Instructions .ROUTE .COMPLEX RF: 0 gabapentin 300 mg capsule 300 mg PO BID RF: 0 bisacodyl [Dulcolax (bisacodyl)] 5 mg Tablet,Delayed Release (Dr/Ec) 10 mg PO DAILY PRN (Reason: Constipation) RF: 0 ondansetron 4 mg Tablet,Disintegrating 4 mg PO Q4H PRN (Reason: Nausea And Vomiting) RF: 0 hydroxyzine pamoate [Vistaril] 25 mg Capsule See Rx Instructions .ROUTE .COMPLEX RF: 0 rosuvastatin 40 mg tablet 40 mg PO BEDTIME RF: 0 melatonin 5 mg Tablet 5 mg PO BEDTIME RF: 0 pioglitazone [Actos] 15 mg Tablet 7.5 mg PO DAILY RF: 0 venlafaxine 75 mg Capsule,Extended Release 24hr 75 mg PO DAILY RF: 0 nicotine 21 mg/24 hr Patch 24 Hour 1 patch TRANSDERMAL DAILY RF: 0 mupirocin 2 % Ointment See Rx Instructions .ROUTE .COMPLEX RF: 0 sodium chloride [Saline Nasal] 0.65 % Aerosol,[place] See Rx Instructions .ROUTE .COMPLEX RF: 0 furosemide [Lasix] 40 mg tablet 40 mg PO QAM RF: 0 azithromycin [Zithromax Z-Mikie] 250 mg tablet See Rx Instructions .ROUTE .COMPLEX Qty: 6 RF: 0 levetiracetam 500 mg tablet 1,000 mg PO QAM RF: 0 Discharge Orders: Discharge Order (Routine); Ordered 06/04/19 Ordered By: Eligio Yi Referrals: Dimitri Navarro MD [Physician] - (mastioditis) Discharge Diet: Usual diet Discharge Activity: Increase activity as tolerated Activity Restrictions/Additional Instructions: pharmacy district manager will call to get you in to see Dr. 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 Discharge Date/Time: 06/04/19 10:29 Coding Level of Care Code ED Hris Administrator for Chg Fwd Exam Comprehensive
[2019-06-03 19:45] VITALS: BP 109/53; PULSE 91; RESP 18; O2SAT 99
--- NOTE | 2019-06-03 19:47 | CTR_ITS ---
PROCEDURE INFORMATION: Exam: CT Head Without Contrast Exam date and time: 06/03/2019 8:01 PM Age: 64 years old Clinical indication: Pain and injury or trauma; Fall; Other: Posterior head pain; Additional info: Fall, vomitting TECHNIQUE: Imaging protocol: Computed tomography of the head without contrast. Total DLP: 879.75 mGy-cm Radiation optimization: All CT scans at this facility use at least one of these dose optimization techniques: automated exposure control; mA and/or kV adjustment per patient size (includes targeted exams where dose is matched to clinical indication); or iterative reconstruction. COMPARISON: CT head wo con* [id number] 05/31/2019 3:00 PM FINDINGS: Brain: Mild to moderate cerebral atrophy and ischemic leukoencephalopathy. Ventricles: Normal. No ventriculomegaly. Bones/joints: See Mastoid air cells finding. Sinuses: Stable [id number] posterior right ethmoid paranasal sinus disease. Mastoid air cells: Complete opacification of the right mastoid air cells with possible loss of bone suggesting possible coalescent otomastoiditis with or without dehiscence posteriorly. CT temporal bones and or MRI with and without contrast with attention to the temporal bones may be helpful. Auditory system: Opacification of the posterior portion of the right middle ear consistent with otitis media. Orbits: Partial empty sella with CSF signal fluid filling more than half of the sella and associated decreased pituitary volume with a concave superior surface. Partial empty sella syndrome is an incidental chronic finding which is usually asymptomatic, however it can be associated with idiopathic intracranial hypertension. Soft tissues: Unremarkable. CT/CT head wo con* [id number] IMPRESSION: 1. Opacification of the posterior portion of the right middle ear consistent with otitis media. 2. Complete opacification of the right mastoid air cells with possible loss of bone suggesting possible coalescent otomastoiditis with or without dehiscence posteriorly. CT temporal bones and/or MRI with and without contrast with attention to the temporal bones may be helpful. 3. Partial empty sella with CSF signal fluid filling more than half of the sella and associated decreased pituitary volume with a concave superior surface. Partial empty sella syndrome is an incidental chronic finding which is usually asymptomatic, however it can be associated with idiopathic intracranial hypertension. 4. Stable [id number] posterior right ethmoid paranasal sinus disease. Radiation Dose CTDIVOL = (mGy): DLP = 879.75 (mGy-cm)
--- NOTE | 2019-06-03 19:54 | XR_ITS ---
WS: [id number] XR cervical spine 3V* [id number] REASON FOR EXAM: neck pain after fall FINDINGS: A swimmer's view was utilized for visualization of the lower cervical spine. The disc spaces and vertebral bodies appear to be normal. There is no fractures or dislocations identified. XR/XR cervical spine 3V* [id number] IMPRESSION: Negative cervical spine series
--- NOTE | 2019-06-03 21:20 | CTR_ITS ---
PROCEDURE INFORMATION: Exam: CT Temporal Bones With Contrast. Exam date and time: 06/03/2019 9:35 PM Age: 64 years old Clinical indication: Other: Infection TECHNIQUE: Imaging protocol: Computed tomography images of the temporal bones with intravenous contrast. Total DLP: 1616.71 mGy-cm Radiation optimization: All CT scans at this facility use at least one of these dose optimization techniques: automated exposure control; mA and/or kV adjustment per patient size (includes targeted exams where dose is matched to clinical indication); or iterative reconstruction. Contrast material: [id number]; Contrast volume: 95 ml; Contrast route: 22; COMPARISON: CT head wo con* [id number] 06/03/2019 8:11 PM FINDINGS: RIGHT TEMPORAL BONE: Right inner ear: Normal. Right ossicles and middle ear: Right middle ear opacification consistent with otitis media. Right external auditory canal: Normal. Right facial nerve canal: Normal. Right jugular foramen: No jugular dehiscence. Right carotid canal: No aberrent carotid canal. Right mastoid air cells: Right mastoid air cell near complete opacification with some suspected bony dehiscence to the roof of temporal bone in the region of the mastoid air cells likely related to underlying infection. LEFT TEMPORAL BONE: Left inner ear: Normal. Left ossicles and middle ear: Normal. The middle ear ossicles are intact. Left external auditory canal: Normal. Left facial nerve canal: Normal. Left jugular foramen: No jugular dehiscence. Left carotid canal: No aberrent carotid canal. Left mastoid air cells: Left mastoid air cell partial opacification suggestive of an infectious process. CT/CT temporal bones w con [id number] IMPRESSION: 1. Right mastoid air cell near complete opacification with some suspected bony dehiscence to the roof of temporal bone in the region of the mastoid air cells likely related to underlying infection. 2. Right middle ear opacification consistent with otitis media. 3. Left mastoid air cell partial opacification suggestive of an infectious process. Radiation Dose CTDIVOL = (mGy): DLP = 1616.71 (mGy-cm)
[2019-06-03 23:12] LABS: Basophils % 0.7 %; Eosinophils # 0.2 10^3/uL (0.0-0.8); Eosinophils % 3.1 %; Hematocrit 40.4 % (37.0-47.0); Hemoglobin 12.3 g/dL (11.5-15.3); Lymphocytes % 16.5 %; Mean Corpuscular HGB Conc 30.4 g/dL (30.0-36.0); Mean Corpuscular Hemoglobin 28.2 pg (28.0-34.0); Mean Corpuscular Volume 92.7 fL (81-99); Mean Platelet Volume 11.5 fL (7.4-10.4); Monocytes % 16.6 %; Neutrophils # 3.6 10^3/uL (1.8-7.7); Neutrophils % 62.6 %; Nucleated Red Blood Cells % 0 %; Platelet Count 178 10^3/cmm (130-400); Red Blood Count 4.36 10^6/uL (4.1-5.3); Red Cell Distribution Width 14.8 % (12.1-15.1); White Blood Count 5.8 10^3/uL (4.0-10.0)
[2019-06-03 23:29] LABS: Alanine Aminotransferase 20 U/L (0-33); Albumin Level 3.7 g/dL (3.5-5.2); Alkaline Phosphatase 78 IU/L (35-105); Anion Gap 17.6 (5-19); Aspartate Amino Transferase 20 U/L (0-32); Blood Urea Nitrogen 12 mg/dL (8-23); Calcium 9.7 mg/dL (8.5-10.5); Carbon Dioxide 29 mmol/L (22-29); Chloride 91 mmol/L (98-107); Globulin 3.4 g/dL (1.3-4.6); Glomerular Filtration Rate 83.7 mL/min (90-130); Glucose 100 mg/dL (65-115); Osmolality Calculated 274 mOsm/kg (285-295); Potassium 3.6 mmol/L (3.5-5.1); Sodium 134 mmol/L (136-145); Total Bilirubin 0.6 mg/dL (0.15-1.2); Total Protein 7.1 g/dL (6.6-8.7)
[2019-06-04 00:17] VITALS: BP 132/78; PULSE 82; RESP 16; O2SAT 100
[2019-06-04] MEDS: ondansetron 2 mg/ML SDV 2 mL 4 MG IVP (00:18)
[2019-06-04 00:19] VITALS: RESP 18; O2SAT 100
[2019-06-04] MEDS: morphine 4 mg/mL SDV 1 mL 2 MG IVP (00:19)
[2019-06-04] MEDS: iohexol 300 mg/mL 100 mL Btl IV (00:39)
[2019-06-04 01:49] VITALS: BP 122/58; PULSE 87; RESP 18; O2SAT 91
[2019-06-04 07:24] VITALS: BP 126/61; PULSE 82; RESP 18; O2SAT 91
--- NOTE | 2019-06-04 13:20 | DCPLANNER ---
information services manager had message to schedule a follow up appointment for patient with Dr. Navarro. information services manager called the office of Dr. Navarro, spoke with Acacia, gave clinic patients information. information services manager was told that patients information would be printed and reviewed. Clinic will call patient with appointment information.
--- NOTE | 2019-06-05 09:40 | DCPLANNER ---
Patient has a follow up appointment scheduled for Sunday, June 09, 2019 at 1:[address] Navarro. Clinic called patient with appointment information.
--- NOTE | 2019-07-15 14:26 | DCPLANNER ---
Patients appointment was cancelled.
== END 2019-06-04 10:29 | disposition home or self-care (01) ==
PROVIDERS: Emergency Provider Family Medicine; Family Provider Family Medicine; PCP Family Medicine
DX: H70.91 Unspecified mastoiditis, right ear (principal)
CPT/HCPCS: 12345; 36415; 70450; 70481; 72040; 80053; 85025; 96374; 96375; 99282; 99283; J2270; J2405; Q9967

== ENCOUNTER 2019-09-17 06:00 | Outpatient (RCR) | payer MEDICARE, MEDICAID, SELFPAY | END 2019-10-17 23:59 | disposition home or self-care (01) | LOC: PULRHB 06:00 | PROVIDERS: PCP Family Medicine; Visit Provider Family Medicine | DX: I27.21 Secondary pulmonary arterial hypertension (principal) | CPT/HCPCS: 94618; G0237; G0238; G0239 ==

== ENCOUNTER 2019-09-18 11:10 | Emergency (ER) | payer MEDICARE, MEDICAID, SELFPAY ==
[2019-09-18 11:22] VITALS: BP 131/69; PULSE 87; RESP 14; TEMP 36.7; O2SAT 98; BMI 47.0
--- NOTE | 2019-09-18 11:35 | XRR_ITS ---
PROCEDURE INFORMATION: Exam: XR Left Hip with Pelvis when Performed Exam date and time: 09/18/2019 12:03 PM Age: 64 years old Clinical indication: Injury or trauma; Fall; Initial encounter; Blunt trauma (contusions or hematomas); Injury date: 09/18/19; Injury details: PT fell ; hit head and landed to left side hip. C/O pain left hip TECHNIQUE: Imaging protocol: XR Left hip with pelvis when performed. Views: 2 or 3 views. COMPARISON: CT abdomen pelvis w con* [id number] 05/16/2019 4:51 PM FINDINGS: Bones/joints: Left hip appears well conjugated. No fracture evident. Soft tissues: Unremarkable. XR/XR hip LT 2-3V wo/w pel* [id number] IMPRESSION: Left hip appears well conjugated. No fracture evident.
--- NOTE | 2019-09-18 11:35 | CTR_ITS ---
PROCEDURE INFORMATION: Exam: CT Head Without Contrast Exam date and time: 09/18/2019 12:30 PM Age: 64 years old Clinical indication: Injury or trauma; Fall; Initial encounter; Blunt trauma (contusions or hematomas) TECHNIQUE: Imaging protocol: Computed tomography of the head without contrast. Radiation optimization: All CT scans at this facility use at least one of these dose optimization techniques: automated exposure control; mA and/or kV adjustment per patient size (includes targeted exams where dose is matched to clinical indication); or iterative reconstruction. COMPARISON: CT head wo con* [id number] 06/03/2019 8:11 PM RADIATION DOSE METRICS: Total DLP (mGy-cm): 837.53 FINDINGS: Brain: No acute intracranial mass or bleed. Mild cerebral atrophy and ischemic leukoencephalopathy, unchanged. Ventricles: Normal. No ventriculomegaly. Bones/joints: Unremarkable. No acute fracture. Sinuses: Chronic opacification of a right posterior ethmoid air cell, unchanged. Mastoid air cells: Right-sided mastoiditis and otitis media, improving but not completely resolved. Continued fluid within numerous left mastoid air cells and portions of middle ear consistent with persistent chronic left-sided mastoiditis and otitis media. Soft tissues: Unremarkable. CT/CT head wo con* [id number] IMPRESSION: 1.) No acute intracranial mass or bleed. Mild cerebral atrophy and ischemic leukoencephalopathy, unchanged. 2.) Chronic bilateral mastoiditis and otitis media as described above. Radiation Dose CTDIVOL = (mGy): DLP = 837.53 (mGy-cm)
--- NOTE | 2019-09-18 11:47 | ED_ITS ---
HPI - Fall General: Chief Complaint: Fall Stated Complaint: FALL/ HEAD PAIN Time Seen by Provider: 09/18/19 11:22 History of Present Illness: HPI Narrative: Patient states that she stumbled and tripped and fell backwards. She struck the occipital aspect of her head on the ground was covered with gravel. There was no loss of consciousness. Patient complains of headache. And also complains of pain to her left hip area. MD complaint: fall Onset (ago): minute(s) Fall from: standing Fall witnessed: no Place fall occurred: home Loss of consciousness: None Prolonged down time: no Symptoms prior to fall: none Context: tripped/slipped Location of injury: head Severity: moderate Quality: sharp Associated symptoms-after fall: Reports no associated symptoms PFSH ED PFSH: Medical History Acute on chronic diastolic (congestive) heart failure Cataract fragments in eye following surgery COPD (chronic obstructive pulmonary disease) Decompensated COPD with exacerbation (chronic obstructive pulmonary disease) Depression Diastolic congestive heart failure Hypercalcemia Elevated parathyroid hormone level in the past, 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 Hyperlipidemia Hypertension Moderate to severe mitral regurgitation Nonischemic cardiomyopathy Obesity Obstructive sleep apnea Pulmonary hypertension Seizure disorder Tricuspid regurgitation Type 2 diabetes mellitus Surgical History H/O mitral valve replacement History of Ulnar nerve compression Family History Other CAD (coronary artery disease) Social History Smoking and tobacco status: never smoked Alcohol intake: never Physical Exam Const: COMMON NORMALS: no acute distress, healthy appearing and well nourished GENERAL APPEARANCE: cooperative and well developed HENMT: COMMON NORMALS: normocephalic and atraumatic HEAD & SCALP: normal to inspection, normocephalic and atraumatic Eye: GENERAL EYE: appearance normal, both eyes and all related structures Neck/C-Spine: COMMON NORMALS: full ROM, no lymphadenopathy and no meningeal signs GENERAL: Yes normal visual inspection CERVICAL SPINE: Yes cervical ROM normal and Yes normal cervical lordosis Chest: COMMONS NORMALS: normal inspection of the chest and normal palpation of entire chest wall Resp: COMMON NORMALS: normal respiratory effort, clear to auscultation bilaterally and percussion normal AUSCULTATION: clear to auscultation bilaterally PERCUSSION: percussion normal Cardio: COMMON NORMALS: regular rate, regular rhythm, S1 normal heart sound present and S2 normal heart sound present JUGULAR VENOUS DISTENTION: no JVD PALPATION: normal PMI RATE: regular rate RHYTHM: regular rhythm HEART SOUNDS: S1 normal heart sound present and S2 normal heart sound present GI: COMMON NORMALS: Soft to palpation and No hepatosplenomegaly present INSPECTION: Yes normal to inspection PALPATION: Yes Soft to palpation and Yes No hepatosplenomegaly present PERCUSSION: normal to percussion : COMMON NORMALS: Yes no CVA tenderness BLADDER/KIDNEY EXAM: Yes no CVA tenderness Back/Pelvis: COMMON NORMALS: no CVA tenderness, thoracic and lumbar spine normal to inspection and thoraco-lumbar ROM normal Extremity: COMMON NORMALS: normal to inspection, full ROM and capillary refill normal Neuro: MENINGEAL SIGNS: Yes no meningeal signs Skin: COMMON NORMALS: no rashes or lesions noted, no wounds and turgor normal GENERAL SKIN EXAM: no rashes or lesions noted, elasticity normal and turgor normal LESIONS: no lesions RASHES: no rashes TRAUMA: no lacerations or abrasions HAIR: normal NAILS: normal Course Vital Signs: Vital signs: Vital Signs Temperature 98.1 F 09/18/19 11:22 Pulse Rate 87 09/18/19 11:22 Respiratory Rate 14 09/18/19 11:22 Blood Pressure 131/69 09/18/19 11:22 Pulse Oximetry 98 09/18/19 11:22 Discharge Plan Discharge Patient Disposition: Home, Self-Care Clinical Impression: Fall Qualifiers: Encounter type: initial encounter Qualified Code(s): W19.XXXA - Unspecified fall, initial encounter Condition: Stable Prescriptions: New tramadol 50 mg tablet 50 mg PO Q4H PRN (Reason: pain) Qty: 15 RF: 0 No Action Tresiba FlexTouch U-100 100 unit/mL (3 mL) insulin pen 10 unit SUBCUT BEDTIME RF: 0 insulin aspart U-100 [Novolog U-100 Insulin aspart] 100 unit/mL solution See Rx Instructions .ROUTE .COMPLEX RF: 0 losartan 25 mg tablet 25 mg PO DAILY RF: 0 carbamide peroxide [Debrox] 6.5 % Drops See Rx Instructions .ROUTE .COMPLEX RF: 0 cholecalciferol (vitamin D3) [Vitamin D3] 25 mcg (1,000 unit) Tablet 25 mcg PO DAILY RF: 0 Januvia 100 mg Tablet 100 mg PO DAILY RF: 0 Flonase Sensimist 27.5 mcg/actuation [place],Suspension 1 spray INTRANASAL DAILY RF: 0 Daliresp 500 mcg tablet 500 mcg PO DAILY RF: 0 Trelegy Ellipta 100-62.5-25 mcg blister with device See Rx Instructions .ROUTE .COMPLEX RF: 0 Ozempic See Rx Instructions .ROUTE .COMPLEX RF: 0 ipratropium-albuterol 0.5 mg-3 mg(2.5 mg base)/3 mL Solution For Nebulization 3 ml INHALATION Q4H PRN (Reason: Shortness Of Breath) RF: 0 acetaminophen [Tylenol Extra Strength] 500 mg Tablet 1,000 mg PO Q4H PRN (Reason: Pain) RF: 0 magnesium hydroxide [Milk of Magnesia] 400 mg/5 mL Suspension See Rx Instructions .ROUTE .COMPLEX RF: 0 calcitonin (salmon) 200 unit/actuation spray,non-aerosol See Rx Instructions .ROUTE .COMPLEX RF: 0 bisacodyl [Dulcolax (bisacodyl)] 10 mg Suppository See Rx Instructions .ROUTE .COMPLEX RF: 0 nystatin 100,000 unit/gram Cream 1 applic TOPICAL BID RF: 0 Fleet Enema 19-7 gram/118 mL Enema See Rx Instructions .ROUTE .COMPLEX RF: 0 gabapentin 300 mg capsule 300 mg PO BID RF: 0 bisacodyl [Dulcolax (bisacodyl)] 5 mg Tablet,Delayed Release (Dr/Ec) 10 mg PO DAILY PRN (Reason: Constipation) RF: 0 ondansetron 4 mg Tablet,Disintegrating 4 mg PO Q4H PRN (Reason: Nausea And Vomiting) RF: 0 hydroxyzine pamoate [Vistaril] 25 mg Capsule See Rx Instructions .ROUTE .COMPLEX RF: 0 rosuvastatin 40 mg tablet 40 mg PO BEDTIME RF: 0 melatonin 5 mg Tablet 5 mg PO BEDTIME RF: 0 pioglitazone [Actos] 15 mg Tablet 7.5 mg PO DAILY RF: 0 venlafaxine 75 mg Capsule,Extended Release 24hr 75 mg PO DAILY RF: 0 nicotine 21 mg/24 hr Patch 24 Hour 1 patch TRANSDERMAL DAILY RF: 0 mupirocin 2 % Ointment See Rx Instructions .ROUTE .COMPLEX RF: 0 sodium chloride [Saline Nasal] 0.65 % Aerosol,[place] See Rx Instructions .ROUTE .COMPLEX RF: 0 furosemide [Lasix] 40 mg tablet 40 mg PO QAM RF: 0 azithromycin [Zithromax Z-Mikie] 250 mg tablet See Rx Instructions .ROUTE .COMPLEX Qty: 6 RF: 0 levetiracetam 500 mg tablet 1,000 mg PO QAM RF: 0 Discharge Orders: Discharge Order (Routine); Ordered 09/18/19 Ordered By: Prasanth Johnson Referrals: Tashi Acosta MD [Primary Care Provider] - Coding Level of Care Code ED Property Consultant for Chg Fwd Exam Comprehensive
[2019-09-18] MEDS: HYDROcodone-acetaminophen 5-325 mg Tablet 2 TAB PO (12:05)
[2019-09-18 14:40] VITALS: BP 140/79; PULSE 87; RESP 16; O2SAT 99
[2019-09-18 14:44] VITALS: BP 140/79; PULSE 55; RESP 18; O2SAT 98
== END 2019-09-18 14:45 | disposition home or self-care (01) ==
PROVIDERS: Emergency Provider Family Medicine; PCP Family Medicine
DX: R51 Headache (principal); Z79.4 Long term (current) use of insulin; J44.9 Chronic obstructive pulmonary disease, unspecified; I11.0 Hypertensive heart disease with heart failure; I50.30 Unspecified diastolic (congestive) heart failure; E78.5 Hyperlipidemia, unspecified; E11.9 Type 2 diabetes mellitus without complications; W01.0XXA Fall on same level from slipping, tripping and stumbling without subsequent striking against object, initial encounter
CPT/HCPCS: 12345; 70450; 73502; 99281; 99283

== ENCOUNTER 2019-09-19 11:15 | Emergency (ER) | payer MEDICARE, MEDICAID, SELFPAY ==
[2019-09-19 11:20] VITALS: BP 132/60; PULSE 93; RESP 20; TEMP 36.3; O2SAT 94; BMI 47.0
--- NOTE | 2019-09-19 11:26 | CT_ITS ---
WS: [id number] CT CERVICAL SPINE HISTORY: PAIN TECHNIQUE: Contiguous 2.5 mm axial imaging performed through the entire cervical spine. Sagittal and coronal reformats also performed. All CT scans at [facility] use at least one of these do se optimization techniques: automated exposure control; mA and/or kV adjustment per patient size (inc ludes targeted exams where dose is matched to clinical indication); or iterative reconstruction. DLP: 1240.12 mGy.cm COMPARISON: None available. Quality of this examination is limited by body habitus. Straightening of the normal cervical lordosis. Craniocervical junction is intact. The odontoid is normal. Lateral masses of C1 and C2 are aligned. C2-C3: Normal. C3-C4: Central disc protrusion. C4-C5: Small central disc protrusion without stenosis. C5-C6: Normal. C6-C7: Normal. C7-T1: Normal. Soft tissues are normal. Lung apices are clear. CT/CT cervical spin wo con* [id number] IMPRESSION: 1. No acute cervical spine fracture. 2. Quality of this examination is limited by body habitus.
--- NOTE | 2019-09-19 11:26 | CT_ITS ---
WS: [id number] CT HEAD NONCONTRAST HISTORY: FALL TECHNIQUE: Contiguous axial imaging performed through the brain in 2.5 mm imaging. Bone and soft tiss ue windows. Sagittal and coronal reformats reviewed. All CT scans at [facility] use at ast one of these dose optimization techniques: automated exposure control; mA and/or kV adjustment pe r patient size (includes targeted exams where dose is matched to clinical indication); or iterative r econstruction. DLP: 775.98 mGy.cm COMPARISON: 06/03/2019 and 09/18/2019 Bilateral subdural hygromas have increased slightly in size since the prior examinations. Small subdu ral hygromas were noted on 09/18/2019 which have increased slightly in size now measuring up to 7 mm to wards the vertices. No significant mass effect or midline shift. No acute blood products are identifi ed. There is significant artifact through the skull base and cerebellum from patient's body habitus. Ventricles: No ventriculomegaly. No inferior displacement of the cerebellar tonsils. Paranasal sinuses: Mucoperiosteal thickening in the posterior RIGHT ethmoid air cell. Mastoid air cells: There is increased fluid and soft tissue in the mastoid air cells bilaterally, gre atest on the RIGHT. Overall improvement since 06/03/2019 bilaterally. Calvarium and scalp: Skull is intact with no soft tissue edema or swelling. CT/CT head wo con* [id number] IMPRESSION: 1. Mild interval progression of small bilateral subdural hygromas since 09/18/19 20. Largest hygroma on the RIGHT measures 7 mm. 2. No acute intracranial or subdural hemorrhage. 3. Posterior fossa is poorly visualized by artifact from body habitus. 4. Improving mastoiditis bilaterally.
--- NOTE | 2019-09-19 12:12 | ED_ITS ---
HPI - Fall General: Chief Complaint: Fall Stated Complaint: was told to come back to er from dr Time Seen by Provider: 09/19/19 11:20 Source: patient Mode of arrival: ambulatory Limitations: no limitations History of Present Illness: HPI Narrative: Yaquelin is a very nice 64-year-old female who was referred here by the nurse practitioner at [facility]. Patient had a mechanical fall yesterday and hit her head on gravel but there is no loss of consciousness or wound. The patient was seen and evaluated here and had a negative CT. Patient feels sore all over but her area of maximal intensity of pain is her head. She had no vomiting, seizure, focal neurologic deficits or other complaints. She followed up with [facility] today as instructed and because of continued headache she is referred here for reevaluation. The patient states she just feels more sore all over but otherwise has no new symptoms. Associated symptoms-after fall: Reports headache(s) and neck pain; Denies abdominal pain, chest pain, confusion, difficulty walking, hematuria, lightheadedness or vertigo Review of Systems Const: Denies: fever(s), chills, body aches, fatigue, malaise or diaphoresis Eyes: Denies: change in vision, blurry vision, blind spots, photophobia, eye discharge or eye redness ENMT: Denies: throat pain, odynophagia, hoarseness, swelling of lips/tongue, oral sores, ear or mastoid pain, ear discharge, change in hearing or nasal discharge Card: Denies: chest pain, palpitations, irregular heart rhythm, edema, lightheadedness, syncope, pre-syncope, dyspnea on exertion or orthopnea Resp: Denies: dyspnea, productive cough, non-productive cough, wheezing, hemoptysis or chest congestion GI: Denies: abdominal pain, nausea, vomiting, hematemesis, coffee ground emesis, heartburn, diarrhea, constipation, GI cramping, hematochezia or melena : Denies: flank pain, dysuria, urinary frequency, urinary urgency or hematuria Musc: Reports: neck pain; Denies: back pain, extremity pain, extremity swelling, joint pain, joint swelling, joint redness, joint warmth or joint stiffness Skin/Breast: Denies: rash, pruritus, erythema, skin tenderness or jaundice Neuro: Reports: headache(s); Denies: numbness in extremities, weakness in extremities, sensory changes, lack of coordination, difficulty walking, dizziness, vertigo, confusion, Slurred speech present or seizure-like activity Maximo/Lymph: Denies: easy bruising, easy bleeding, petechiae, purpura or enlarged lymph nodes All/Imm: Denies: urticaria, throat swelling, tongue swelling, facial swelling or acute wheezing PFSH ED PFSH: Medical History COPD (chronic obstructive pulmonary disease) Depression Diastolic congestive heart failure Hyperlipidemia Hypertension Moderate to severe mitral regurgitation Nonischemic cardiomyopathy Obesity Obstructive sleep apnea Pulmonary hypertension Seizure disorder Tricuspid regurgitation Type 2 diabetes mellitus Surgical History H/O mitral valve replacement History of Ulnar nerve compression Family History Other CAD (coronary artery disease) Social History Smoking and tobacco status: never smoked Alcohol intake: never Physical Exam Const: COMMON NORMALS: no acute distress, patient oriented x3, no limitations, healthy appearing and well nourished GENERAL APPEARANCE: cooperative, well kempt and well developed HENMT: COMMON NORMALS: normocephalic, atraumatic, external ears normal, EAC's normal and Normal external nose present HEAD & SCALP: normal to inspection, normocephalic and atraumatic FACE & SINUS: normal facial exam and face symmetric NOSE: Normal external nose present and Normal nares present EXTERNAL EAR: Yes external ears normal EXTERNAL AUDITORY CANAL: EAC's normal MOUTH: Normal oral and palatal mucosa present, lip normal and tongue normal Eye: COMMON NORMALS: Equal, round and reactive pupils present and conjunctivae normal GENERAL EYE: appearance normal, both eyes and all related structures ALIGNMENT: Yes alignment normal PERIORBITAL: periorbital findings normal EYELID: eyelids normal CONJUNCTIVA: Yes conjunctivae normal SCLERA: sclerae normal PUPIL: Yes Equal, round and reactive pupils present Neck/C-Spine: COMMON NORMALS: full ROM, no lymphadenopathy, supple, no meningeal signs and no JVD GENERAL: Yes normal visual inspection and Yes trachea midline Chest: COMMONS NORMALS: normal inspection of the chest and normal palpation of entire chest wall Resp: COMMON NORMALS: normal respiratory effort, No retractions and No use of accessory muscles EFFORT & INSPECTION: Yes able to speak in complete sentences and Yes symmetric chest movement AUSCULTATION: no crackles, no rales, no rhonchi and no wheezes Cardio: COMMON NORMALS: no JVD, regular rate, regular rhythm, S1 normal heart sound present and S2 normal heart sound present RATE: regular rate RHYTHM: regular rhythm HEART SOUNDS: S1 normal heart sound present, S2 normal heart sound present, no click, no gallops, no murmurs, no rubs and abnormal split S2 GI: COMMON NORMALS: Soft to palpation and No hepatosplenomegaly present PALPATION: Yes Soft to palpation, No Tenderness to palpation present (GI), No Guarding due to palpation present (GI), No Rigid due to palpation, Yes No hepatosplenomegaly present, No Hernia present, No Palpable mass present and No Pulsatile mass present : COMMON NORMALS: Yes no CVA tenderness BLADDER/KIDNEY EXAM: Yes no CVA tenderness EXTERNAL FEMALE EXAM: No Hernia present Back/Pelvis: COMMON NORMALS: no CVA tenderness, thoracic and lumbar spine normal to inspection, no thoracic nor lumbar tenderness and thoraco-lumbar ROM normal Extremity: COMMON NORMALS: normal to inspection, full ROM, capillary refill normal, no joint enlargement, no clubbing, cyanosis or edema and no calf tenderness Neuro: COMMON NORMALS: patient oriented x3, CN's II-XII intact bilaterally, moves all extremities, no focal motor deficits and no sensory deficits noted MENINGEAL SIGNS: Yes no meningeal signs SPEECH: speech normal Psych: COMMON NORMALS: mental status grossly normal, Normal thought process present, cooperative, normal affect, speech normal and activity/motor behavior normal APPEARANCE: Yes well kempt SPEECH: Yes normal speech THOUGHT PROCESS: Normal thought process present Skin: COMMON NORMALS: no rashes or lesions noted, turgor normal, no jaundice, no petechiae and no mottling GENERAL SKIN EXAM: no rashes or lesions noted and turgor normal Course Vital Signs: Vital signs: Vital Signs Temperature 97.4 F L 09/19/19 11:20 Pulse Rate 93 09/19/19 11:20 Respiratory Rate 20 H 09/19/19 11:20 Blood Pressure 132/60 09/19/19 11:20 Pulse Oximetry 94 07/03/20 11:20 MDM - Fall MDM Narrative: Medical decision making narrative: Yaquelin is a nice 64-year-old female who returns for continued headache after falling on 17 September. She has no progression of her symptoms of concussion other than continued headache. She is not on blood thinners. Her cervical spine pain is more in the paraspinal muscles and her CT is unremarkable. In regards to her subdural hygromas it sounds as though they have been present since May and they have been stable with only slight progression. I reviewed these with Dr. Kate who was not on- call but gracious enough to review the case with me. He states these are incidental and can fluctuate in size sometimes secondary to hydration status. There is no mention of midline shift or mass-effect. There is no evidence of acute hemorrhage into them. The patient shows no neurologic deficits. She is requesting something stronger for her pain so I will give her a very short course of [place]. I did review all this with Dr. Acosta who is agreeable to see the patient and recheck in the office. In regards to her improving mastoiditis he would like her to be started on another course of antibiotics to help resolve this issue. To make the patient had no mastoid tenderness or clinical sign of mastoiditis. Patient agreed to return should her symptoms change or worsen about this time she was feeling better and wanted to be discharged. Imaging Data^: CT Head: Radiologist's impression: [address] [place] [address] CT Scan Report Signed Patient: Yaquelin Loera Unit #: [id number] : 1955 Age/Sex: 64 / F ADM Date: 09/19/19 Loc: ER Room/Bed: Attending Dr: Ordering Provider/Ordering MD: Kim Reynolds DO Date of Service: 09/19/19 Procedure(s): CT head wo con* [id number] Accession Number(s): [id number] Report Number: [id number] WS: [id number] CT HEAD NONCONTRAST HISTORY: FALL TECHNIQUE: Contiguous axial imaging performed through the brain in 2.5 mm imaging. Bone and soft tissue windows. Sagittal and coronal reformats reviewed. All CT scans at [facility] use at least one of these dose optimization techniques: automated exposure control; mA and/or kV adjustment per patient size (includes targeted exams where dose is matched to clinical indication); or iterative reconstruction. DLP: 775.98 mGy.cm COMPARISON: 06/03/2019 and 09/18/2019 Bilateral subdural hygromas have increased slightly in size since the prior examinations. Small subdural hygromas were noted on 09/18/2019 which have increased slightly in size now measuring up to 7 mm towards the vertices. No significant mass effect or midline shift. No acute blood products are identified. There is significant artifact through the skull base and cerebellum from patient's body habitus. Ventricles: No ventriculomegaly. No inferior displacement of the cerebellar tonsils. Paranasal sinuses: Mucoperiosteal thickening in the posterior RIGHT ethmoid air cell. Mastoid air cells: There is increased fluid and soft tissue in the mastoid air cells bilaterally, greatest on the RIGHT. Overall improvement since 06/03/2019 bilaterally. Calvarium and scalp: Skull is intact with no soft tissue edema or swelling. CT/CT head wo con* [id number] IMPRESSION: 1. Mild interval progression of small bilateral subdural hygromas since 09/18/2019. Largest hygroma on the RIGHT measures 7 mm. 2. No acute intracranial or subdural hemorrhage. 3. Posterior fossa is poorly visualized by artifact from body habitus. 4. Improving mastoiditis bilaterally. Dictated By: Jocelin Serrano DO Signed By: Jocelin Serrano DO Signed Date/Time: 09/19/19 1210 DD/ 1156 CT Cervical Spine: Radiologist's impression: [address] [address] [address] Scan Report Signed Patient: Yaquelin Loera Unit #: [id number] : 1955 Age/Sex: 64 / F ADM Date: 09/19/19 Loc: ER Room/Bed: Attending Dr: Ordering Provider/Ordering MD: Kim Reynolds DO Date of Service: 09/19/19 Procedure(s): CT cervical spin wo con* [id number] Accession Number(s): [id number] Report Number: [id number] WS: [id number] CT CERVICAL SPINE HISTORY: PAIN TECHNIQUE: Contiguous 2.5 mm axial imaging performed through the entire cervical spine. Sagittal and coronal reformats also performed. All CT scans at [facility] use at least one of these dose optimization techniques: automated exposure control; mA and/or kV adjustment per patient size (includes targeted exams where dose is matched to clinical indication); or iterative reconstruction. DLP: 1240.12 mGy.cm COMPARISON: None available. Quality of this examination is limited by body habitus. Straightening of the normal cervical lordosis. Craniocervical junction is intact. The odontoid is normal. Lateral masses of C1 and C2 are aligned. C2-C3: Normal. C3-C4: Central disc protrusion. C4-C5: Small central disc protrusion without stenosis. C5-C6: Normal. C6-C7: Normal. C7-T1: Normal. Soft tissues are normal. Lung apices are clear. CT/CT cervical spin wo con* [id number] IMPRESSION: 1. No acute cervical spine fracture. 2. Quality of this examination is limited by body habitus. Dictated By: Jocelin Serrano DO Signed By: Jocelin Serrano DO Signed Date/Time: 09/19/19 121 DD/ 1211 Discharge Plan Discharge Patient Disposition: Home, Self-Care Clinical Impression: Subdural hygroma Concussion without loss of consciousness Qualifiers: Encounter type: subsequent encounter Qualified Code(s): S06.0X0D - Concussion without loss of consciousness, subsequent encounter Mastoiditis, chronic Qualifiers: Laterality: bilateral Qualified Code(s): H70.13 - Chronic mastoiditis, bilateral Condition: Stable Prescriptions: [place] 5-325 mg tablet 1 tab PO Q6H PRN (Reason: pain) 5 Days Qty: 4 RF: 0 Zofran 4 mg tablet 4 mg PO Q6H PRN (Reason: nausea and vomiting) Qty: 20 RF: 0 cefdinir 300 mg capsule 300 mg PO Q12H 10 Days Qty: 20 RF: 0 No Action tramadol 50 mg tablet 50 mg PO Q4H PRN (Reason: pain) Qty: 15 RF: 0 Tresiba FlexTouch U-100 100 unit/mL (3 mL) insulin pen 10 unit SUBCUT BEDTIME RF: 0 insulin aspart U-100 [Novolog U-100 Insulin aspart] 100 unit/mL solution See Rx Instructions .ROUTE .COMPLEX RF: 0 losartan 25 mg tablet 25 mg PO DAILY RF: 0 carbamide peroxide [Debrox] 6.5 % Drops See Rx Instructions .ROUTE .COMPLEX RF: 0 cholecalciferol (vitamin D3) [Vitamin D3] 25 mcg (1,000 unit) Tablet 25 mcg PO DAILY RF: 0 Januvia 100 mg Tablet 100 mg PO DAILY RF: 0 Flonase Sensimist 27.5 mcg/actuation [place],Suspension 1 spray INTRANASAL DAILY RF: 0 Daliresp 500 mcg tablet 500 mcg PO DAILY RF: 0 Trelegy Ellipta 100-62.5-25 mcg blister with device See Rx Instructions .ROUTE .COMPLEX RF: 0 Ozempic See Rx Instructions .ROUTE .COMPLEX RF: 0 ipratropium-albuterol 0.5 mg-3 mg(2.5 mg base)/3 mL Solution For Nebulization 3 ml INHALATION Q4H PRN (Reason: Shortness Of Breath) RF: 0 acetaminophen [Tylenol Extra Strength] 500 mg Tablet 1,000 mg PO Q4H PRN (Reason: Pain) RF: 0 magnesium hydroxide [Milk of Magnesia] 400 mg/5 mL Suspension See Rx Instructions .ROUTE .COMPLEX RF: 0 calcitonin (salmon) 200 unit/actuation spray,non-aerosol See Rx Instructions .ROUTE .COMPLEX RF: 0 bisacodyl [Dulcolax (bisacodyl)] 10 mg Suppository See Rx Instructions .ROUTE .COMPLEX RF: 0 nystatin 100,000 unit/gram Cream 1 applic TOPICAL BID RF: 0 Fleet Enema 19-7 gram/118 mL Enema See Rx Instructions .ROUTE .COMPLEX RF: 0 gabapentin 300 mg capsule 300 mg PO BID RF: 0 bisacodyl [Dulcolax (bisacodyl)] 5 mg Tablet,Delayed Release (Dr/Ec) 10 mg PO DAILY PRN (Reason: Constipation) RF: 0 ondansetron 4 mg Tablet,Disintegrating 4 mg PO Q4H PRN (Reason: Nausea And Vomiting) RF: 0 hydroxyzine pamoate [Vistaril] 25 mg Capsule See Rx Instructions .ROUTE .COMPLEX RF: 0 rosuvastatin 40 mg tablet 40 mg PO BEDTIME RF: 0 melatonin 5 mg Tablet 5 mg PO BEDTIME RF: 0 pioglitazone [Actos] 15 mg Tablet 7.5 mg PO DAILY RF: 0 venlafaxine 75 mg Capsule,Extended Release 24hr 75 mg PO DAILY RF: 0 nicotine 21 mg/24 hr Patch 24 Hour 1 patch TRANSDERMAL DAILY RF: 0 mupirocin 2 % Ointment See Rx Instructions .ROUTE .COMPLEX RF: 0 sodium chloride [Saline Nasal] 0.65 % Aerosol,[place] See Rx Instructions .ROUTE .COMPLEX RF: 0 furosemide [Lasix] 40 mg tablet 40 mg PO QAM RF: 0 azithromycin [Zithromax Z-Mikie] 250 mg tablet See Rx Instructions .ROUTE .COMPLEX Qty: 6 RF: 0 levetiracetam 500 mg tablet 1,000 mg PO QAM RF: 0 Discharge Orders: Discharge Order (Routine); Ordered 09/19/19 Ordered By: Kim Reynolds Referrals: Tashi Acosta MD [Primary Care Provider] - 1-3 days Discharge Diet: Advance as tolerated Discharge Activity: Increase activity as tolerated Patient Instructions: Concussion (ED), Mastoiditis in Children (ED) Activity Restrictions/Additional Instructions: Please return to the ER immediately for any of the signs or symptoms listed on your discharge instruction sheets, worsening/changing of your symptoms, you are not getting better as quickly as expected, or for ANY other cause or concerns. Be certain to follow-up with Dr. Acosta regarding your mastoiditis as well as your subdural hygromas. These will need to be followed clinically. If your headache worsens, you began to vomit or you have any other symptoms please return to the ER immediately for recheck Coding Level of Care Code ED Wafer Slicer for Kanchan Fwbrady Exam Comprehensive
[2019-09-19 13:02] VITALS: BP 97/42; PULSE 53; RESP 14; O2SAT 98
== END 2019-09-19 13:03 | disposition home or self-care (01) ==
PROVIDERS: Emergency Provider Emergency Medicine; PCP Family Medicine
DX: S06.0X0A Concussion without loss of consciousness, initial encounter (principal); H70.13 Chronic mastoiditis, bilateral; G96.0 Cerebrospinal fluid leak; Z79.4 Long term (current) use of insulin; W19.XXXA Unspecified fall, initial encounter; J44.9 Chronic obstructive pulmonary disease, unspecified; I11.0 Hypertensive heart disease with heart failure; I50.30 Unspecified diastolic (congestive) heart failure; E78.5 Hyperlipidemia, unspecified; E11.9 Type 2 diabetes mellitus without complications
CPT/HCPCS: 12345; 70450; 72125; 99281; 99283

== ENCOUNTER 2019-10-18 12:34 | Emergency (ER) | payer MEDICARE, MEDICAID, SELFPAY ==
[2019-10-18 12:36] VITALS: BP 161/111; PULSE 69; RESP 24; TEMP 35.6; O2SAT 95; BMI 47.0
[2019-10-18 12:44] VITALS: RESP 18
--- NOTE | 2019-10-18 12:44 | W.ED.EXTPRO ---
HPI - Extremity Problem General: Chief complaint: Extremity Injury, Lower Stated complaint: l hip and back pain Time Seen by Provider: 10/18/19 12:44 History of Present Illness: HPI Narrative: Pleasant 64-year-old female patient presents to the emergency department with complaints of low back pain and left posterior hip pain that radiates down her her left leg. She reports continued falls, last fall experienced September 17, 2019. She lives at assisted living, reports poor stability with ambulation. has experienced low back pain since her previous fall on September 16 that is worsening. has tried physical therapy without improvement. Has taken Tylenol for pain without relief. Associated symptoms: Deny chest pain, fever(s) or rash Review of Systems General: Reports: 10 or more systems reviewed and unremarkable except in HPI and below Const: Denies: fever(s), chills or diaphoresis Eyes: Denies: blurry vision or eye redness ENMT: Denies: throat pain, dental pain or disequilibrium Card: Denies: chest pain, palpitations or irregular heart rhythm Resp: Denies: dyspnea, productive cough, non-productive cough or wheezing GI: Denies: abdominal pain, nausea or vomiting : Denies: difficulty voiding or dysuria Musc: Reports: back pain (Lower back) and extremity pain (Left posterior hip with radiation down left leg) Skin/Breast: Denies: rash or pruritus Neuro: Denies: headache(s), weakness in extremities or behavioral changes Maximo/Lymph: Denies: easy bruising [facility] ED PFSH: Medical History (Updated 10/18/19 @ 14:47 by BRIELLE Nava) COPD (chronic obstructive pulmonary disease) Depression Diastolic congestive heart failure Hyperlipidemia Hypertension Moderate to severe mitral regurgitation Nonischemic cardiomyopathy Obesity Obstructive sleep apnea Pulmonary hypertension Seizure disorder Tricuspid regurgitation Type 2 diabetes mellitus Surgical History H/O mitral valve replacement History of Ulnar nerve compression Family History Other CAD (coronary artery disease) Social History Smoking and tobacco status: current every day smoker cigarettes Packs smoked per day: 1 Years cigarettes smoked: 30 Second hand smoke exposure: Yes Alcohol intake: never Caregiver/support person: Yes Lives independently: Yes Household members: none Housing: Assisted Living Facility Marital status: / Current occupational status: retired and disabled History of recent travel: No Current gender identity: Female Physical Exam Const: COMMON NORMALS: no acute distress, patient oriented x3 and alert GENERAL APPEARANCE: cooperative and well hydrated NUTRITIONAL APPEARANCE: obese HENMT: COMMON NORMALS: normocephalic, Normal external nose present and moist oral mucous membranes HEAD & SCALP: normocephalic NOSE: Normal external nose present Eye: COMMON NORMALS: Equal, round and reactive pupils present and EOMs intact bilaterally GENERAL EYE: appearance normal, both eyes and all related structures PUPIL: Yes Equal, round and reactive pupils present Neck/C-Spine: COMMON NORMALS: full ROM and no lymphadenopathy GENERAL: Yes normal visual inspection and Yes trachea midline CERVICAL SPINE: Yes cervical ROM normal Lymph: LYMPHATIC: no lymphadenopathy noted Chest: COMMONS NORMALS: normal inspection of the chest Resp: COMMON NORMALS: normal respiratory effort and clear to auscultation bilaterally AUSCULTATION: clear to auscultation bilaterally Cardio: COMMON NORMALS: regular rhythm, S1 normal heart sound present and S2 normal heart sound present RHYTHM: regular rhythm HEART SOUNDS: S1 normal heart sound present and S2 normal heart sound present GI: COMMON NORMALS: Soft to palpation and non-tender INSPECTION: Yes normal to inspection PALPATION: Yes Soft to palpation : COMMON NORMALS: Yes no CVA tenderness BLADDER/KIDNEY EXAM: Yes no CVA tenderness and No CVA tenderness Back/Pelvis: COMMON NORMALS: no CVA tenderness GENERAL BACK: No CVA tenderness THORACIC SPINE/UPPER BACK: Yes normal to inspection LUMBAR SPINE/LOWER BACK: Yes lumbar spinal tenderness Lumbar spinal tenderness location: L3, L4 and L5, Yes paraspinal muscle tenderness and Yes straight leg raise positive left (RLE strength 5/5; LLE strength 3/5; positive monofilament exam) Extremity: COMMON NORMALS: normal to inspection and capillary refill normal Neuro: COMMON NORMALS: patient oriented x3 and no focal motor deficits SENSORIUM/ORIENTATION: Yes alert Psych: COMMON NORMALS: mental status grossly normal, Normal thought process present and cooperative ACTIVITY/MOTOR BEHAVIOR: Yes appropriate eye contact THOUGHT PROCESS: Normal thought process present Skin: COMMON NORMALS: no rashes or lesions noted and turgor normal GENERAL SKIN EXAM: no rashes or lesions noted and turgor normal Course ED course: 64 year old female with sciatica pain - hydrocodone effective with pain - case d/w Dr Garner - hydrocodone Rx signed by Dr Garner Vital Signs: Vital signs: Vital Signs Temperature 96.0 F L 10/18/19 12:36 Pulse Rate 69 10/18/19 12:36 Respiratory Rate 18 10/18/19 12:44 Blood Pressure 161/111 10/18/19 12:36 Pulse Oximetry 95 10/18/19 12:36 MDM - Extremity (Nontraumatic) Imaging Data^: Other Imaging: Radiologist's impression: Patient: Yaquelin Loera #: [id number] : 4Acct#:[id number] Age/Sex: 64 / FADM Date: 10/18/19 Loc: ERRoom/Bed: Attending Dr: Ordering Provider/Ordering MD: Kim Cortes Date of Service: 10/18/19 Procedure(s): CT lumbar spine wo con* [id number] Accession Number(s): [id number] Report Number: [id number] PROCEDURE INFORMATION: Exam: CT Lumbar Spine Without Contrast Exam date and time: 10/18/2019 1:05 PM Age: 64 years old Clinical indication: Pain and injury or trauma; Fall; Initial encounter; Sprain or strain, lumbar ligaments; Low back pain and sciatica; Left; Injury date: 1+ month ago; Additional info: Lbp S/P fall - radiculopathy lle - sciatica TECHNIQUE: Imaging protocol: Computed tomography images of the lumbar spine without contrast. Radiation optimization: All CT scans at this facility use at least one of these dose optimization techniques: automated exposure control; mA and/or kV adjustment per patient size (includes targeted exams where dose is matched to clinical indication); or iterative reconstruction. COMPARISON: CR Lumbar Spine 2-3 views* [id number] 03/11/2019 1:36 PM RADIATION DOSE METRICS: Total DLP (mGy-cm): 2317.91 FINDINGS: Vertebrae: There is an old fracture of the L4 vertebral body with approximately 60% height loss.There is deformity of the T12 vertebral body with approximately 30% height loss. These fractures appear old. No acute fracture. L1-L2: No significant disc protrusion. No severe spinal canal stenosis. No significant neural foraminal narrowing. L2-L3: No significant disc protrusion. No spinal canal stenosis. No neural foraminal narrowing. L3-L4: There is a diffuse disc bulge which in association with ligamentum flavum hypertrophy and bilateral facet disease results in moderate central canal stenosis. There is mild bilateral neural foraminal narrowing. L4-L5: There is a diffuse disc bulge which in association with ligamentum flavum hypertrophy and bilateral facet disease results in moderate central canal stenosis. There is mild bilateral neural foraminal narrowing. L5-S1: No significant disc protrusion. No severe spinal canal stenosis. No significant neural foraminal narrowing. Soft tissues: Unremarkable. CT/CT lumbar spine wo con* [id number] IMPRESSION: There are no acute concerning abnormalities. Degenerative change is identified in the spine. If there is desire for further evaluation, a MRI could be performed. Radiation Dose CTDIVOL = (mGy): DLP = 2317.91 (mGy-cm) Discharge Plan Discharge Patient Disposition: Home Clinical Impression: Sciatic leg pain, Low back pain radiating to left lower extremity Fall Qualifiers: Encounter type: initial encounter Qualified Code(s): W19.XXXA - Unspecified fall, initial encounter Condition: Stable Prescriptions: New hydrocodone-acetaminophen 5-325 mg tablet 1 tab PO TID PRN (Reason: pain) Qty: 10 RF: 0 No Action tramadol 50 mg tablet 50 mg PO Q4H PRN (Reason: pain) Qty: 15 RF: 0 Tresiba FlexTouch U-100 100 unit/mL (3 mL) insulin pen 10 unit SUBCUT BEDTIME RF: 0 insulin aspart U-100 [Novolog U-100 Insulin aspart] 100 unit/mL solution See Rx Instructions .ROUTE .COMPLEX RF: 0 losartan 25 mg tablet 25 mg PO DAILY RF: 0 carbamide peroxide [Debrox] 6.5 % Drops See Rx Instructions .ROUTE .COMPLEX RF: 0 cholecalciferol (vitamin D3) [Vitamin D3] 25 mcg (1,000 unit) Tablet 25 mcg PO DAILY RF: 0 Januvia 100 mg Tablet 100 mg PO DAILY RF: 0 Flonase Sensimist 27.5 mcg/actuation [place],Suspension 1 spray INTRANASAL DAILY RF: 0 Daliresp 500 mcg tablet 500 mcg PO DAILY RF: 0 Trelegy Ellipta 100-62.5-25 mcg blister with device See Rx Instructions .ROUTE .COMPLEX RF: 0 Ozempic See Rx Instructions .ROUTE .COMPLEX RF: 0 ipratropium-albuterol 0.5 mg-3 mg(2.5 mg base)/3 mL Solution For Nebulization 3 ml INHALATION Q4H PRN (Reason: Shortness Of Breath) RF: 0 acetaminophen [Tylenol Extra Strength] 500 mg Tablet 1,000 mg PO Q4H PRN (Reason: Pain) RF: 0 magnesium hydroxide [Milk of Magnesia] 400 mg/5 mL Suspension See Rx Instructions .ROUTE .COMPLEX RF: 0 calcitonin (salmon) 200 unit/actuation spray,non-aerosol See Rx Instructions .ROUTE .COMPLEX RF: 0 bisacodyl [Dulcolax (bisacodyl)] 10 mg Suppository See Rx Instructions .ROUTE .COMPLEX RF: 0 nystatin 100,000 unit/gram Cream 1 applic TOPICAL BID RF: 0 Fleet Enema 19-7 gram/118 mL Enema See Rx Instructions .ROUTE .COMPLEX RF: 0 gabapentin 300 mg capsule 300 mg PO BID RF: 0 bisacodyl [Dulcolax (bisacodyl)] 5 mg Tablet,Delayed Release (Dr/Ec) 10 mg PO DAILY PRN (Reason: Constipation) RF: 0 hydroxyzine pamoate [Vistaril] 25 mg Capsule See Rx Instructions .ROUTE .COMPLEX RF: 0 rosuvastatin 40 mg tablet 40 mg PO BEDTIME RF: 0 melatonin 5 mg Tablet 5 mg PO BEDTIME RF: 0 pioglitazone [Actos] 15 mg Tablet 7.5 mg PO DAILY RF: 0 venlafaxine 75 mg Capsule,Extended Release 24hr 75 mg PO DAILY RF: 0 nicotine 21 mg/24 hr Patch 24 Hour 1 patch TRANSDERMAL DAILY RF: 0 mupirocin 2 % Ointment See Rx Instructions .ROUTE .COMPLEX RF: 0 sodium chloride [Saline Nasal] 0.65 % Aerosol,[place] See Rx Instructions .ROUTE .COMPLEX RF: 0 furosemide [Lasix] 40 mg tablet 40 mg PO QAM RF: 0 levetiracetam 500 mg tablet 1,000 mg PO QAM RF: 0 Zofran 4 mg tablet 4 mg PO Q6H PRN (Reason: nausea and vomiting) Qty: 20 RF: 0 Discharge Orders: Discharge Order (Routine); Ordered 10/18/19 Ordered By: Kim Cortes Referrals: Tashi Acosta MD [Primary Care Provider] - Discharge Diet: Usual diet Discharge Activity: Limit activity as instructed Patient Instructions: Lumbar Radiculopathy (ED), Fall Prevention (ED) Activity Restrictions/Additional Instructions: Limit activity Avoid activity that worsens back pain Use of hydrocodone can cause constipation Follow-up with your doctor this week, Dr. Acosta Utilize a walker to assist with balance issues If you develop numbness of the left lower extremity or worsening symptoms, return to the emergency department Discharge Date/Time: 10/18/19 15:08 Coding Level of Care Code ED Offline Editor for Chg Fwd Exam Comprehensive
--- NOTE | 2019-10-18 13:03 | CTR_ITS ---
PROCEDURE INFORMATION: Exam: CT Lumbar Spine Without Contrast Exam date and time: 10/18/2019 1:05 PM Age: 64 years old Clinical indication: Pain and injury or trauma; Fall; Initial encounter; Sprain or strain, lumbar ligaments; Low back pain and sciatica; Left; Injury date: 1+ month ago; Additional info: Lbp S/P fall - radiculopathy lle - sciatica TECHNIQUE: Imaging protocol: Computed tomography images of the lumbar spine without contrast. Radiation optimization: All CT scans at this facility use at least one of these dose optimization techniques: automated exposure control; mA and/or kV adjustment per patient size (includes targeted exams where dose is matched to clinical indication); or iterative reconstruction. COMPARISON: CR Lumbar Spine 2-3 views* [id number] 03/11/2019 1:36 PM RADIATION DOSE METRICS: Total DLP (mGy-cm): 2317.91 FINDINGS: Vertebrae: There is an old fracture of the L4 vertebral body with approximately 60% height loss.There is deformity of the T12 vertebral body with approximately 30% height loss. These fractures appear old. No acute fracture. L1-L2: No significant disc protrusion. No severe spinal canal stenosis. No significant neural foraminal narrowing. L2-L3: No significant disc protrusion. No spinal canal stenosis. No neural foraminal narrowing. L3-L4: There is a diffuse disc bulge which in association with ligamentum flavum hypertrophy and bilateral facet disease results in moderate central canal stenosis. There is mild bilateral neural foraminal narrowing. L4-L5: There is a diffuse disc bulge which in association with ligamentum flavum hypertrophy and bilateral facet disease results in moderate central canal stenosis. There is mild bilateral neural foraminal narrowing. L5-S1: No significant disc protrusion. No severe spinal canal stenosis. No significant neural foraminal narrowing. Soft tissues: Unremarkable. CT/CT lumbar spine wo con* [id number] IMPRESSION: There are no acute concerning abnormalities. Degenerative change is identified in the spine. If there is desire for further evaluation, a MRI could be performed. Radiation Dose CTDIVOL = (mGy): DLP = 2317.91 (mGy-cm)
[2019-10-18] MEDS: HYDROcodone-acetaminophen 5-325 mg Tablet 1 TAB PO (13:20)
== END 2019-10-18 15:08 | disposition home or self-care (01) ==
PROVIDERS: Emergency Provider Nurse Practitioner Family; PCP Family Medicine
DX: M54.42 Lumbago with sciatica, left side (principal); Z79.4 Long term (current) use of insulin; J44.9 Chronic obstructive pulmonary disease, unspecified; I11.0 Hypertensive heart disease with heart failure; I50.30 Unspecified diastolic (congestive) heart failure; E78.5 Hyperlipidemia, unspecified; E11.9 Type 2 diabetes mellitus without complications; F17.210 Nicotine dependence, cigarettes, uncomplicated
CPT/HCPCS: 12345; 72131; 99281; 99283

== ENCOUNTER 2019-11-04 12:04 | Outpatient (CLI) | payer MEDICARE, MEDICAID, SELFPAY ==
[2019-11-04 11:50] VITALS: BP 114/68; PULSE 62; RESP 18; TEMP 36.8; O2SAT 94
[2019-11-04] MEDS: denosumab 60 mg SDV SUBCUT (12:11)
[2019-11-04 12:26] VITALS: BMI 47.0
[2019-11-04 12:40] VITALS: BP 108/72; PULSE 86; RESP 18; TEMP 36.6; O2SAT 98
== END 2019-11-04 12:05 | disposition home or self-care (01) ==
LOC: RHEOACUTE 12:06
PROVIDERS: PCP Family Medicine; Visit Provider Internal Medicine Rheumatology
DX: M81.0 Age-related osteoporosis without current pathological fracture (principal)
CPT/HCPCS: 96372; J0897

== ENCOUNTER 2019-12-26 09:03 | Outpatient (CLI) | payer MEDICARE, MEDICAID, SELFPAY ==
--- NOTE | 2019-12-26 09:14 | MM_ITS ---
WS: [id number] BILATERAL SCREENING DIGITAL MAMMOGRAM WITH CAD HISTORY: SCREENING COMPARISON: 12/09/2018 and 12/07/2017 Bilateral CC and MLO views submitted. Computer aided detection analyzed. Breast composition: There are scattered areas of fibroglandular density. No suspicious masses, microc alcifications or architectural distortion. A few scattered benign calcifications in each breast. MM/[place] [id number] IMPRESSION: BI-RADS: 2-Benign FOLLOW UP: 1 Year Follow-up
== END 2019-12-26 09:04 | disposition home or self-care (01) ==
LOC: RADSHAW 09:06
PROVIDERS: PCP Family Medicine; Visit Provider Family Medicine
DX: Z12.31 Encounter for screening mammogram for malignant neoplasm of breast (principal)
CPT/HCPCS: 77067

== ENCOUNTER 2020-01-30 18:29 | Emergency (ER) | payer MEDICARE, MEDICAID, SELFPAY ==
[2020-01-30 18:40] VITALS: BP 110/67; PULSE 70; RESP 18; TEMP 36.5; O2SAT 92; BMI 47.0
--- NOTE | 2020-01-30 19:00 | W.ED.NAVMDI ---
HPI - Nausea/Vomiting/Diarrhea General: Chief complaint: Nausea/Vomiting/Diarrhea Stated complaint: nausea/ vomiting/ lq abdominal pain Time Seen by Provider: 01/30/20 18:42 Source: patient and EMS Mode of arrival: EMS Limitations: no limitations History of Present Illness: HPI Narrative: 64-year-old female states she has been having vomiting for last 2 days. She is working out 2 days ago and felt sharp pain in her left lower quadrant. States that increasing pain since then. States pain is sharp in nature and rates it an 8 out of 10. Denies any vomiting or diarrhea. Denies any fever. MD elicited complaint: abdominal pain Associated nausea: Yes Associated symtoms: Reports nausea; Denies chest pain, dysuria or headache(s) Review of Systems Const: Denies: fever(s), chills, body aches or change in appetite Eyes: Denies: blurry vision or eye discomfort ENMT: Denies: throat pain or dental pain Card: Denies: chest pain Resp: Denies: dyspnea GI: Reports: abdominal pain and nausea : Denies: dysuria Musc: Denies: neck pain or back pain Skin/Breast: Denies: rash Neuro: Denies: headache(s) Psych: Denies: depression Maximo/Lymph: Denies: easy bruising All/Imm: Denies: urticaria PFSH ED PFSH: Medical History (Updated 01/30/20 @ 21:58 by Devorah Agee MD) Benign essential hypertension with target blood pressure below 140/90 COPD (chronic obstructive pulmonary disease) Depression Diastolic congestive heart failure Hyperlipidemia Hypertension Moderate to severe mitral regurgitation Nonischemic cardiomyopathy Obesity Obstructive sleep apnea Pulmonary hypertension Seizure disorder Tricuspid regurgitation Type 2 diabetes mellitus Surgical History H/O mitral valve replacement History of Ulnar nerve compression Family History Other CAD (coronary artery disease) Social History Smoking and tobacco status: current every day smoker cigarettes Years cigarettes smoked: 30 [ Other cigarette details: Hx of 1PPD x 30 Years ] Second hand smoke exposure: Yes Alcohol intake: never Caregiver/support person: Yes Lives independently: Yes Household members: none Housing: Assisted Living Facility Marital status: / Current occupational status: retired and disabled History of recent travel: No Current gender identity: Female Physical Exam Const: COMMON NORMALS: no acute distress, patient oriented x3 and healthy appearing HENMT: COMMON NORMALS: normocephalic and atraumatic HEAD & SCALP: normocephalic and atraumatic Eye: COMMON NORMALS: Equal, round and reactive pupils present and EOMs intact bilaterally PUPIL: Yes Equal, round and reactive pupils present Neck/C-Spine: COMMON NORMALS: full ROM and supple Chest: COMMONS NORMALS: normal inspection of the chest and normal palpation of entire chest wall Resp: COMMON NORMALS: normal respiratory effort, No retractions, No use of accessory muscles and clear to auscultation bilaterally AUSCULTATION: clear to auscultation bilaterally Cardio: COMMON NORMALS: regular rate, regular rhythm and No murmurs present (Cardio) RATE: regular rate RHYTHM: regular rhythm GI: COMMON NORMALS: Normal to inspection, nondistended, normoactive bowel sounds present, Soft to palpation and no masses PALPATION: Yes Soft to palpation and Yes Tenderness to palpation present (GI) Details: LLQ Extremity: COMMON NORMALS: normal to inspection and full ROM Neuro: COMMON NORMALS: patient oriented x3, moves all extremities and no focal motor deficits Psych: COMMON NORMALS: mental status grossly normal, Normal thought process present and cooperative THOUGHT PROCESS: Normal thought process present Skin: COMMON NORMALS: no rashes or lesions noted and no wounds GENERAL SKIN EXAM: no rashes or lesions noted Course Vital Signs: Vital signs: Vital Signs Temperature 97.7 F 01/30/20 18:40 Pulse Rate 83 01/30/20 19:16 Respiratory Rate 20 H 01/30/20 19:28 Blood Pressure 125/69 01/30/20 19:16 Pulse Oximetry 97 01/30/20 19:28 MDM - Nausea/Vomiting/Diarrhea MDM Narrative: Medical decision making narrative: Yaquelin presents here with abdominal pain. Patient CT scan here shows no acute findings. From her history she likely has a muscle strain. She is well-appearing here and pain is much improved. Will prescribe her Zofran and Naprosyn. She is stable for discharge and to follow-up with PCP and return if worsening. She understands agrees to plan. Lab Data: Labs: Lab Results 01/30/20 01/30/20 01/30/20 Range/Units 18:13 18:13 20:01 WBC 10.3 H (4.0-10.0) 10^3/ uL RBC 5.39 H (4.1-5.3) 10^6/u L Hgb 15.1 (11.5-15.3) g/dL Hct 49.4 H (37.0-47.0) % MCV 91.7 (81-99) fL MCH 28.0 (28.0-34.0) pg MCHC 30.6 (30.0-36.0) g/dL RDW 14.8 (12.1-15.1) % Plt Count 217 (130-400) 10^3/c mm MPV 12.2 H (7.4-10.4) fL Neut % (Auto) 67.2 % Lymph % (Auto) 23.6 % Freestone % (Auto) 6.6 % Eos % (Auto) 1.8 % Baso % (Auto) 0.4 % Neut # (Auto) 6.93 (1.8-7.7) 10^3/u L Lymph # (Auto) 2.4 (0.8-4.8) 10^3/u L [place] # (Auto) 0.7 (0.2-0.9) 10^3/u L Eos # (Auto) 0.2 (0.0-0.8) 10^3/u L Baso # (Auto) 0.0 (0.0-0.1) 10^3/u L Nucleated RBC % (a uto) 0 % Nucleated RBCs # 0.0 /100WBC Sodium 141 (136-145) mmol/L Potassium 3.9 (3.5-5.1) mmol/L Chloride 98 (98-107) mmol/L Carbon Dioxide 31 H (22-29) mmol/L Anion Gap 15.9 (5-19) BUN 26 H (8-23) mg/dL Creatinine 0.8 (0.5-0.9) mg/dL GFR Calculation 71.8 L (90-130) mL/min Glucose 129 H (65-115) mg/dL Calculated Osmolal ity 298 H (285-295) mOsm/k g Calcium 10.3 (8.5-10.5) mg/dL Total Bilirubin 0.4 (0.15-1.2) mg/dL AST 24 (0-32) U/L ALT 17 (0-33) U/L Alkaline Phosphata se 101 (35-105) IU/L Total Protein 7.8 (6.6-8.7) g/dL Albumin 4.7 (3.5-5.2) g/dL Globulin 3.1 (1.3-4.6) g/dL Lipase 236 H (13-60) U/L Urine Color Straw (Yellow) Urine Appearance Clear (CLEAR) Urine pH 7 (5-7) Ur Specific Gravit y 1.015 (1.005-1.030) Urine Protein Trace (Negative) Urine Glucose (UA) Norm (Normal) Urine Ketones Negative (Negative) Urine Blood Neg (Negative) Urine Nitrate Negative (Negative) Urine Bilirubin Neg (Negative) Urine Urobilinogen Norm (Negative) mg/dL Ur Leukocyte Salima ase Trace H (Negative) Urine RBC 0-4 H (0-2) /hpf Urine WBC 15-25 H (0-5) /hpf Ur Squamous Epith Cells 15-25 H (0-5) /hpf Amorphous Sediment Not Reportable Urine Bacteria 2+ H (NONE) /hpf Imaging Data^: CT Abd/Pel: Radiologist's impression: [place] [address] CT Scan Report Signed Patient: Yaquelin Loera Unit #: [id number] : 1955 Age/Sex: 64 / F ADM Date: 01/30/20 Loc: ER Room/Bed: Attending Dr: Ordering Provider/Ordering MD: Devorah Agee MD Date of Service: 01/30/20 Procedure(s): CT abdomen pelvis w con* [id number] Accession Number(s): [id number] Report Number: [id number] PROCEDURE INFORMATION: Exam: CT Abdomen And Pelvis With Contrast Exam date and time: 01/30/2020 9:23 PM Age: 64 years old Clinical indication: Abdominal pain; Generalized; Additional info: Abd pain TECHNIQUE: Imaging protocol: Computed tomography of the abdomen and pelvis with intravenous contrast. Radiation optimization: All CT scans at this facility use at least one of these dose optimization techniques: automated exposure control; mA and/or kV adjustment per patient size (includes targeted exams where dose is matched to clinical indication); or iterative reconstruction. Contrast material: OMNI 300; Contrast volume: 95 ml; Contrast route: INTRAVENOUS (IV); COMPARISON: CT abdomen pelvis w con* [id number] 05/16/2019 4:51 PM RADIATION DOSE METRICS: Total DLP (mGy-cm): 1678.19 FINDINGS: Lungs: Limited assessment of the lung bases fails to reveal evidence for active cardiopulmonary process. Heart: Cardiomegaly. Liver: Diffuse fatty infiltration of the liver no visible hepatic mass or cystic structure. Gallbladder and bile ducts: Enlarged. No calcified stones. No ductal dilation. Pancreas: Partial fatty replacement of pancreas. No visible pancreatic ductal ectasia. Spleen: Normal. No splenomegaly. Adrenal glands: Normal. No mass. Kidneys and ureters: Stable tiny simple left renal cortical cysts. No follow-up recommended. No hydronephrosis or perinephric fluid. No visible nephrolithiasis or ureterolithiasis. Stomach and bowel: Minimal diverticulosis coli without visible evidence for acute diverticulitis. Nonobstructive bowel pattern. No visible adynamic or reactive ileus. Appendix: The appendix is visualized and appears noninflamed. Intraperitoneal space: No visible evidence of mesenteric lymphadenitis or active mesenteritis/panniculitis. Vasculature: The abdominal aorta is nonaneurysmal. Lymph nodes: No current visible evidence of active mesenteric or retroperitoneal lymphadenopathy. Urinary bladder: Unremarkable as visualized. Reproductive: Unremarkable as visualized. Bones/joints: No visible acute osseous abnormality. Old compression wedge deformities of T12 and L4. Degenerative disease of the spine. Osteopenia. Soft tissues: Unremarkable. Other findings: Marked obesity. CT/CT abdomen pelvis w con* [id number] IMPRESSION: Currently no visible evidence of acute abdominal or pelvic pathologic process. Discharge Plan Discharge Patient Disposition: Home Clinical Impression: Abdominal pain Qualifiers: Abdominal location: generalized Qualified Code(s): R10.84 - Generalized abdominal pain Condition: Stable Prescriptions: New ondansetron 4 mg tablet,disintegrating 4 mg PO Q6H PRN (Reason: nausea and vomiting) Qty: 14 RF: 0 Naprosyn 500 mg tablet 500 mg PO BID PRN (Reason: pain) Qty: 20 RF: 0 No Action Cough Drops See Rx Instructions .ROUTE .COMPLEX RF: 0 Zofran 4 mg tablet 4 mg PO .Q4-6H PRN (Reason: nausea and vomiting) RF: 0 Tresiba FlexTouch U-100 100 unit/mL (3 mL) insulin pen 10 unit SUBCUT BEDTIME RF: 0 insulin aspart U-100 [Novolog U-100 Insulin aspart] 100 unit/mL solution See Rx Instructions .ROUTE .COMPLEX RF: 0 carbamide peroxide [Debrox] 6.5 % Drops See Rx Instructions .ROUTE .COMPLEX RF: 0 cholecalciferol (vitamin D3) [Vitamin D3] 25 mcg (1,000 unit) Tablet 25 mcg PO DAILY RF: 0 Januvia 100 mg Tablet 100 mg PO DAILY RF: 0 Flonase Sensimist 27.5 mcg/actuation [place],Suspension 1 spray INTRANASAL DAILY RF: 0 Daliresp 500 mcg tablet 500 mcg PO DAILY RF: 0 Trelegy Ellipta 100-62.5-25 mcg blister with device See Rx Instructions .ROUTE .COMPLEX RF: 0 Ozempic See Rx Instructions .ROUTE .COMPLEX RF: 0 ipratropium-albuterol 0.5 mg-3 mg(2.5 mg base)/3 mL Solution For Nebulization 3 ml INHALATION Q4H PRN (Reason: Shortness Of Breath) RF: 0 acetaminophen [Tylenol Extra Strength] 500 mg Tablet 1,000 mg PO Q4H PRN (Reason: Pain) RF: 0 magnesium hydroxide [Milk of Magnesia] 400 mg/5 mL Suspension See Rx Instructions .ROUTE .COMPLEX RF: 0 bisacodyl [Dulcolax (bisacodyl)] 10 mg Suppository 10 mg HI DAILY PRN (Reason: Constipation) RF: 0 Fleet Enema 19-7 gram/118 mL Enema 118 ml HI DAILY PRN (Reason: Constipation) RF: 0 gabapentin 300 mg capsule 300 mg PO BID RF: 0 bisacodyl [Dulcolax (bisacodyl)] 5 mg Tablet,Delayed Release (Dr/Ec) 10 mg PO DAILY PRN (Reason: Constipation) RF: 0 hydroxyzine pamoate [Vistaril] 25 mg Capsule See Rx Instructions .ROUTE .COMPLEX RF: 0 rosuvastatin 40 mg tablet 40 mg PO BEDTIME RF: 0 melatonin 5 mg Tablet 5 mg PO BEDTIME RF: 0 pioglitazone [Actos] 15 mg Tablet 7.5 mg PO DAILY RF: 0 venlafaxine 75 mg Capsule,Extended Release 24hr 75 mg PO DAILY RF: 0 sodium chloride [Saline Nasal] 0.65 % Aerosol,[place] See Rx Instructions .ROUTE .COMPLEX RF: 0 furosemide [Lasix] 40 mg tablet 40 mg PO QAM RF: 0 levetiracetam 500 mg tablet See Rx Instructions .ROUTE .COMPLEX RF: 0 Discharge Orders: Discharge Order (Routine); Ordered 01/30/20 Ordered By: Devorah Agee Referrals: Tashi Acosta MD [Primary Care Provider] - 1-3 days Discharge Diet: Advance as tolerated Discharge Activity: Resume usual activity Patient Instructions: Abdominal Pain (ED) Coding Level of Care Code 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
[2020-01-30 19:16] VITALS: BP 125/69; PULSE 83; RESP 18; O2SAT 97
[2020-01-30 19:18] LABS: Basophils % 0.4 %; Eosinophils # 0.2 10^3/uL (0.0-0.8); Eosinophils % 1.8 %; Hematocrit 49.4 % (37.0-47.0); Hemoglobin 15.1 g/dL (11.5-15.3); Lymphocytes # 2.4 10^3/uL (0.8-4.8); Lymphocytes % 23.6 %; Mean Corpuscular HGB Conc 30.6 g/dL (30.0-36.0); Mean Corpuscular Volume 91.7 fL (81-99); Mean Platelet Volume 12.2 fL (7.4-10.4); Monocytes # 0.7 10^3/uL (0.2-0.9); Monocytes % 6.6 %; Neutrophils # 6.93 10^3/uL (1.8-7.7); Neutrophils % 67.2 %; Nucleated Red Blood Cells % 0 %; Platelet Count 217 10^3/cmm (130-400); Red Blood Count 5.39 10^6/uL (4.1-5.3); Red Cell Distribution Width 14.8 % (12.1-15.1); White Blood Count 10.3 10^3/uL (4.0-10.0)
[2020-01-30 19:28] VITALS: RESP 20; O2SAT 97
[2020-01-30] MEDS: morphine 4 mg/mL SDV 1 mL IVP (19:28)
[2020-01-30 19:37] LABS: Alanine Aminotransferase 17 U/L (0-33); Albumin Level 4.7 g/dL (3.5-5.2); Alkaline Phosphatase 101 IU/L (35-105); Anion Gap 15.9 (5-19); Aspartate Amino Transferase 24 U/L (0-32); Blood Urea Nitrogen 26 mg/dL (8-23); Calcium 10.3 mg/dL (8.5-10.5); Carbon Dioxide 31 mmol/L (22-29); Chloride 98 mmol/L (98-107); Globulin 3.1 g/dL (1.3-4.6); Glomerular Filtration Rate 71.8 mL/min (90-130); Glucose 129 mg/dL (65-115); Lipase 236 U/L (13-60); Osmolality Calculated 298 mOsm/kg (285-295); Potassium 3.9 mmol/L (3.5-5.1); Sodium 141 mmol/L (136-145); Total Bilirubin 0.4 mg/dL (0.15-1.2); Total Protein 7.8 g/dL (6.6-8.7)
[2020-01-30 20:00] VITALS: BP 140/89; PULSE 82; RESP 18; O2SAT 99
[2020-01-30 20:25] LABS: Bilirubin Urine Neg (Negative); Blood Urine Neg (Negative); Glucose Urine UA Norm (Normal); Ketones Urine Negative (Negative); Nitrate Urine Negative (Negative); Protein Urine Trace (Negative); Specific Gravity, Urine 1.015 (1.005-1.030); Urine Appearance Clear (CLEAR); Urine Color Straw (Yellow); Urobilinogen Urine Norm (Negative); pH Urine 7 (5-7)
[2020-01-30 20:26] LABS: Add Urine Microscopic? YES; Leukocyte Esterase Urine Trace (Negative)
[2020-01-30 20:27] LABS: Add Urine Culture? No; Bacteria Urine 2+ /hpf; RBC Urine 0-4 /hpf (0-2); Squamous Epithelial Cell Urine 15-25 /hpf (0-5); WBC Urine 15-25 /hpf (0-5)
--- NOTE | 2020-01-30 21:13 | CTR_ITS ---
PROCEDURE INFORMATION: Exam: CT Abdomen And Pelvis With Contrast Exam date and time: 01/30/2020 9:23 PM Age: 64 years old Clinical indication: Abdominal pain; Generalized; Additional info: Abd pain TECHNIQUE: Imaging protocol: Computed tomography of the abdomen and pelvis with intravenous contrast. Radiation optimization: All CT scans at this facility use at least one of these dose optimization techniques: automated exposure control; mA and/or kV adjustment per patient size (includes targeted exams where dose is matched to clinical indication); or iterative reconstruction. Contrast material: OMNI 300; Contrast volume: 95 ml; Contrast route: INTRAVENOUS (IV); COMPARISON: CT abdomen pelvis w con* [id number] 05/16/2019 4:51 PM RADIATION DOSE METRICS: Total DLP (mGy-cm): 1678.19 FINDINGS: Lungs: Limited assessment of the lung bases fails to reveal evidence for active cardiopulmonary process. Heart: Cardiomegaly. Liver: Diffuse fatty infiltration of the liver no visible hepatic mass or cystic structure. Gallbladder and bile ducts: Enlarged. No calcified stones. No ductal dilation. Pancreas: Partial fatty replacement of pancreas. No visible pancreatic ductal ectasia. Spleen: Normal. No splenomegaly. Adrenal glands: Normal. No mass. Kidneys and ureters: Stable tiny simple left renal cortical cysts. No follow-up recommended. No hydronephrosis or perinephric fluid. No visible nephrolithiasis or ureterolithiasis. Stomach and bowel: Minimal diverticulosis coli without visible evidence for acute diverticulitis. Nonobstructive bowel pattern. No visible adynamic or reactive ileus. Appendix: The appendix is visualized and appears noninflamed. Intraperitoneal space: No visible evidence of mesenteric lymphadenitis or active mesenteritis/panniculitis. Vasculature: The abdominal aorta is nonaneurysmal. Lymph nodes: No current visible evidence of active mesenteric or retroperitoneal lymphadenopathy. Urinary bladder: Unremarkable as visualized. Reproductive: Unremarkable as visualized. Bones/joints: No visible acute osseous abnormality. Old compression wedge deformities of T12 and L4. Degenerative disease of the spine. Osteopenia. Soft tissues: Unremarkable. Other findings: Marked obesity. CT/CT abdomen pelvis w con* [id number] IMPRESSION: Currently no visible evidence of acute abdominal or pelvic pathologic process. Radiation Dose CTDIVOL = (mGy): DLP = 1678.19 (mGy-cm)
[2020-01-30] MEDS: iohexol 300 mg/mL 100 mL Btl IV (21:33)
[2020-01-30 22:00] VITALS: BP 116/72; PULSE 80; RESP 18; O2SAT 98
[2020-01-30 22:55] VITALS: BP 116/79; PULSE 80; RESP 18; O2SAT 98
--- NOTE | 2020-01-31 00:10 | PC.NURSE ---
i agree with this assessment
== END 2020-01-31 00:10 | disposition home or self-care (01) ==
PROVIDERS: Emergency Provider Emergency Medicine; PCP Family Medicine
DX: R10.84 Generalized abdominal pain (principal); Z79.4 Long term (current) use of insulin; J44.9 Chronic obstructive pulmonary disease, unspecified; I11.0 Hypertensive heart disease with heart failure; I50.30 Unspecified diastolic (congestive) heart failure; E78.5 Hyperlipidemia, unspecified; E11.9 Type 2 diabetes mellitus without complications; F17.210 Nicotine dependence, cigarettes, uncomplicated
CPT/HCPCS: 12345; 74177; 80053; 81001; 83690; 85025; 96374; 96375; 99282; 99283; J2270; Q9967

== ENCOUNTER 2020-04-11 17:19 | Emergency (ER) | payer MEDICARE, MEDICAID, SELFPAY ==
[2020-04-11 17:20] VITALS: BP 181/92; PULSE 86; RESP 20; TEMP 36.3; O2SAT 98; BMI 47.0
[2020-04-11 17:27] VITALS: BP 127/73; PULSE 87; RESP 16; O2SAT 100
--- NOTE | 2020-04-11 17:31 | XRR_ITS ---
PROCEDURE INFORMATION: Exam: XR Chest, 1 View Exam date and time: 04/11/2020 5:33 PM Age: 65 years old Clinical indication: Chest pain; Additional info: Palpitations TECHNIQUE: Imaging protocol: XR of the chest Views: 1 view. COMPARISON: CR XR chest 1V portable [id number] 05/31/2019 2:47 PM FINDINGS: Lungs: Prominent vascular markings right lower lobe. The lungs are otherwise clear Pleural space: Unremarkable. No pleural effusion. No pneumothorax. Heart/Mediastinum: Unremarkable. No cardiomegaly. Bones/joints: Unremarkable. XR/XR chest 1V portable [id number] IMPRESSION: Prominent vascular markings right lower lobe Otherwise No acute findings.
--- NOTE | 2020-04-11 17:31 | ECG_ITS ---
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: : 1955 Requested By: Indigo Hurtado I Order Number: [id number] Reading MD: TIMOTEO BERNABE Measurements Intervals [place] Rate: 90 P: 50 MD: 189 QRS: 73 QRSD: 86 T: 47 QT: 391 QTc: 479 Interpretive Statements SINUS RHYTHM WITH FREQUENT VENTRICULAR PREMATURE COMPLEXES POSSIBLE LEFT ATRIAL ENLARGEMENT [-0.1mV P WAVE IN V1/V2] ABNORMAL RHYTHM ECG Compared to ECG 05/16/2019 23:52:47 T-wave abnormality no longer present Electronically Signed On 04-11-2020 21:23:21 RESERVATION AGENT by TIMOTEO BERNABE [id number]
--- NOTE | 2020-04-11 17:34 | W.ED.GENADLT ---
HPI - General Adult General: Chief complaint: General Medical Stated complaint: PALPITATIONS X 1 DAY Time Seen by Provider: 04/11/20 17:24 Source: patient Mode of arrival: EMS Limitations: no limitations History of Present Illness: HPI narrative: 65-year-old female patient with a history of congestive heart failure, mitral valve prolapse, presents to the emergency department with palpitations that started yesterday after an argument with her son. She says it lasted all night and when he continued through today she decided to come here for evaluation. She does not feel her heart is racing, she denies any chest pain. She denies dizziness or presyncope. She has no other concerns other than palpitations. Onset (ago): day(s) (1) Associated symptoms: Reports palpitations; Deny dyspnea, headache(s), nausea, rash or vomiting Review of Systems General: Reports: 10 or more systems reviewed and unremarkable except in HPI and below Const: Denies: fever(s), chills or body aches Eyes: Denies: change in vision or blurry vision ENMT: Denies: throat pain, enlarged tonsils, odynophagia, hoarseness, mouth pain or swelling of lips/tongue Card: Reports: palpitations; Denies: irregular heart rhythm, edema or swelling of feet/ankles Resp: Denies: dyspnea, productive cough or non-productive cough GI: Denies: abdominal pain, nausea or vomiting : Denies: flank pain, difficulty voiding, dysuria, urinary frequency, urinary urgency or urinary hesitancy Musc: Denies: neck pain, back pain or extremity swelling Skin/Breast: Denies: rash, pruritus or erythema Neuro: Denies: headache(s), numbness in extremities or weakness in extremities Endo: Denies: polyuria, polydipsia or tired all the time PFS ED PFSH: Medical History (Updated 04/11/20 @ 20:36 by Indigo Hurtado MD, MSM) Benign essential hypertension with target blood pressure below 140/90 COPD (chronic obstructive pulmonary disease) Depression Diastolic congestive heart failure Hyperlipidemia Hypertension Moderate to severe mitral regurgitation Nonischemic cardiomyopathy Obesity Obstructive sleep apnea Pulmonary hypertension Seizure disorder Tricuspid regurgitation Type 2 diabetes mellitus Surgical History H/O mitral valve replacement History of Ulnar nerve compression Family History Other CAD (coronary artery disease) Social History Smoking and tobacco status: current every day smoker cigarettes Years cigarettes smoked: 30 [ Other cigarette details: Hx of 1PPD x 30 Years ] Second hand smoke exposure: Yes Alcohol intake: never Caregiver/support person: Yes Lives independently: Yes Household members: none Housing: Assisted Living Facility Marital status: / Current occupational status: retired and disabled History of recent travel: No Current gender identity: Female Physical Exam Const: COMMON NORMALS: no acute distress, average body habitus, patient oriented x3, no limitations, healthy appearing, alert and well nourished HENMT: COMMON NORMALS: normocephalic, atraumatic and moist oral mucous membranes HEAD & SCALP: normocephalic and atraumatic Eye: COMMON NORMALS: Equal, round and reactive pupils present, EOMs intact bilaterally, conjunctivae normal and no scleral icterus CONJUNCTIVA: Yes conjunctivae normal PUPIL: Yes Equal, round and reactive pupils present Neck/C-Spine: COMMON NORMALS: no meningeal signs and no JVD Resp: COMMON NORMALS: normal respiratory effort, No retractions, No use of accessory muscles, clear to auscultation bilaterally and percussion normal AUSCULTATION: clear to auscultation bilaterally PERCUSSION: percussion normal Cardio: COMMON NORMALS: no JVD, regular rate, regular rhythm, S1 normal heart sound present, S2 normal heart sound present, No gallops present (Cardio), No clicks present (Cardio), No murmurs present (Cardio), No rub (Cardio) and Peripheral pulses 2+ throughout RATE: regular rate RHYTHM: regular rhythm HEART SOUNDS: S1 normal heart sound present and S2 normal heart sound present PERIPHERAL PULSES: Peripheral pulses 2+ throughout GI: COMMON NORMALS: Normal to inspection, nondistended, normoactive bowel sounds present, Soft to palpation, non-tender, No hepatosplenomegaly present, no masses and no bruits PALPATION: Yes Soft to palpation and Yes No hepatosplenomegaly present Extremity: COMMON NORMALS: normal to inspection, full ROM, capillary refill normal, no calf tenderness and no pedal edema Neuro: COMMON NORMALS: patient oriented x3 SENSORIUM/ORIENTATION: Yes alert MENINGEAL SIGNS: Yes no meningeal signs Skin: COMMON NORMALS: no rashes or lesions noted, no wounds, turgor normal, no jaundice, no petechiae and no mottling GENERAL SKIN EXAM: no rashes or lesions noted and turgor normal Course Reevaluation(s): Reevaluation #1: Discussed her lab and imaging findings with her. Nothing acute shows up. Heart rhythm has been unremarkable on the monitor and on her EKGs. proBNP is elevated but she has congestive and she has had higher numbers in the past. No signs of fluid overload today. We will discharge her home with no new orders. She voiced understanding and is in agreement with the plan. Time: 20:33 Vital Signs: Vital signs: Vital Signs Temperature 98.2 F 04/11/20 21:00 Pulse Rate 92 04/11/20 21:00 Respiratory Rate 17 04/11/20 21:00 Blood Pressure 120/84 04/11/20 21:00 Pulse Oximetry 94 04/11/20 21:00 MDM - General Adult MDM Narrative: Medical decision making narrative: 65-year-old female patient who presents with palpitation to the emergency department after getting into an argument with her son. Evaluation in the ED was unremarkable. Symptoms started last night and she has been asymptomatic throughout her ED stay. She is discharged home with no new orders. Medical Records: Attestation: I reviewed the patient's medical records. Lab Data: Attestation: I reviewed the patient's lab results. Labs: Lab Results 04/11/20 04/11/20 04/11/20 Range/Units 17:45 17:45 17:45 WBC 7.8 (4.0-10.0) 10^3/ uL RBC 5.15 (4.1-5.3) 10^6/u L Hgb 14.2 (11.5-15.3) g/dL Hct 46.1 (37.0-47.0) % MCV 89.5 (81-99) fL MCH 27.6 L (28.0-34.0) pg MCHC 30.8 (30.0-36.0) g/dL RDW 15.4 H (12.1-15.1) % Plt Count 169 (130-400) 10^3/c mm MPV 11.6 H (7.4-10.4) fL Neut % (Auto) 69.7 % Lymph % (Auto) 19.7 % [place] % (Auto) 7.7 % Eos % (Auto) 2.0 % Baso % (Auto) 0.6 % Neut # (Auto) 5.46 (1.8-7.7) 10^3/u L Lymph # (Auto) 1.5 (0.8-4.8) 10^3/u L [place] # (Auto) 0.6 (0.2-0.9) 10^3/u L Eos # (Auto) 0.2 (0.0-0.8) 10^3/u L Baso # (Auto) 0.1 (0.0-0.1) 10^3/u L Nucleated RBC % (a uto) 0 % Nucleated RBCs # 0.0 /100WBC PT 13.40 (12.1-14.9) SECO NDS INR 0.99 (0.8-1.2) Sodium 139 (136-145) mmol/L Potassium 4.4 (3.5-5.1) mmol/L Chloride 101 (98-107) mmol/L Carbon Dioxide 28 (22-29) mmol/L Anion Gap 14.4 (5-19) BUN 21 (8-23) mg/dL Creatinine 0.9 (0.5-0.9) mg/dL GFR Calculation 62.5 L (90-130) mL/min Glucose 131 H (65-115) mg/dL Calculated Osmolal ity 293 (285-295) mOsm/k g Calcium 9.9 (8.5-10.5) mg/dL Total Bilirubin 0.4 (0.15-1.2) mg/dL AST 21 (0-32) U/L ALT 15 (0-33) U/L Alkaline Phosphata se 91 (35-105) IU/L Troponin T Baselin e (0-10) ng/L Troponin T 120 Min [place] (0-10) ng/L Delta Troponin T (0-10) ABS# NT-Pro-B Natriuret Pep 1919 H (0-125) pg/mL Total Protein 8.8 H (6.6-8.7) g/dL Albumin 4.2 (3.5-5.2) g/dL Globulin 4.6 (1.3-4.6) g/dL TSH 1.74 (0.27-4.20) uIU/ mL 04/11/20 04/11/20 Range/Units 17:45 20:00 WBC (4.0-10.0) 10^3/ uL RBC (4.1-5.3) 10^6/u L Hgb (11.5-15.3) g/dL Hct (37.0-47.0) % MCV (81-99) fL MCH (28.0-34.0) pg MCHC (30.0-36.0) g/dL RDW (12.1-15.1) % Plt Count (130-400) 10^3/c mm MPV (7.4-10.4) fL Neut % (Auto) % Lymph % (Auto) % [place] % (Auto) % Eos % (Auto) % Baso % (Auto) % Neut # (Auto) (1.8-7.7) 10^3/u L Lymph # (Auto) (0.8-4.8) 10^3/u L [place] # (Auto) (0.2-0.9) 10^3/u L Eos # (Auto) (0.0-0.8) 10^3/u L Baso # (Auto) (0.0-0.1) 10^3/u L Nucleated RBC % (a uto) % Nucleated RBCs # /100WBC PT (12.1-14.9) SECO NDS INR (0.8-1.2) Sodium (136-145) mmol/L Potassium (3.5-5.1) mmol/L Chloride (98-107) mmol/L Carbon Dioxide (22-29) mmol/L Anion Gap (5-19) BUN (8-23) mg/dL Creatinine (0.5-0.9) mg/dL GFR Calculation (90-130) mL/min Glucose (65-115) mg/dL Calculated Osmolal ity (285-295) mOsm/k g Calcium (8.5-10.5) mg/dL Total Bilirubin (0.15-1.2) mg/dL AST (0-32) U/L ALT (0-33) U/L Alkaline Phosphata se (35-105) IU/L Troponin T Baselin e 16 H (0-10) ng/L Troponin T 120 Min [place] 16.10 H (0-10) ng/L Delta Troponin T 0.10 (0-10) ABS# NT-Pro-B Natriuret Pep (0-125) pg/mL Total Protein (6.6-8.7) g/dL Albumin (3.5-5.2) g/dL Globulin (1.3-4.6) g/dL TSH (0.27-4.20) uIU/ mL Imaging Data^: CXR: Attestation: I personally reviewed and interpreted this imaging study as follows: Radiologist's impression: [id number] [address] XRay Report Signed Patient: Yaquelin Loera #: [id number] : 4At#:[id number] Age/Sex: 65 / FADM Date: 04/11/20 Loc: [facility]/Bed: Attending Dr: Ordering Provider/Ordering MD: Indigo Hurtado [place], [facility] [place] of Service: 04/11/20 Procedure(s): XR chest 1V portable [id number] Accession Number(s): [id number] Report Number: [id number] PROCEDURE INFORMATION: Exam: XR Chest, 1 View Exam date and time: 04/11/2020 5:33 PM Age: 65 years old Clinical indication: Chest pain; Additional info: Palpitations TECHNIQUE: Imaging protocol: XR of the chest Views: 1 view. COMPARISON: CR XR chest 1V portable [id number] 05/31/2019 2:47 PM FINDINGS: Lungs: Prominent vascular markings right lower lobe. The lungs are otherwise clear Pleural space: Unremarkable. No pleural effusion. No pneumothorax. Heart/Mediastinum: Unremarkable. No cardiomegaly. Bones/joints: Unremarkable. XR/XR chest 1V portable [id number] IMPRESSION: Prominent vascular markings right lower lobe Otherwise No acute findings. Dictated By:John Paul Reyes Signed By:Alexandre Reyes Date/Time:04/11/20 1826 DD/ 1825 EKG Data^: EKG 1: Attestation: I personally reviewed and interpreted this EKG as follows: EKG interpretation date: 04/11/20 EKG interpretation time: 17:26 Prior EKG tracings: not available for review Interpretation: Normal sinus rhythm with frequent PVCs. Heart rate 90 bpm. Left atrial enlargement. No ST changes. Computer generated interpretation: Chest X-Ray 04/11/20 17:31 IMPRESSION: Prominent vascular markings right lower lobe Otherwise No acute findings. EKG 2: Attestation: I personally reviewed and interpreted this EKG as follows: EKG interpretation date: 04/11/20 EKG interpretation time: 19:52 Prior EKG tracings: available for review Interpretation: Sinus rhythm with frequent PVCs. Heart rate [address] changes. No significant change from earlier Computer generated interpretation: Chest X-Ray 04/11/20 17:31 IMPRESSION: Prominent vascular markings right lower lobe Otherwise No acute findings. sinus rhythm with frequent PVCs Discharge Plan Discharge Patient Disposition: Home Clinical Impression: Heart palpitations Congestive heart failure Qualifiers: Heart failure type: unspecified Heart failure chronicity: chronic Qualified Code(s): I50.9 - Heart failure, unspecified Condition: Stable Prescriptions: Continued Cough Drops See Rx Instructions .ROUTE .COMPLEX RF: 0 Zofran 4 mg tablet 4 mg PO .Q4-6H PRN (Reason: nausea and vomiting) RF: 0 ondansetron 4 mg tablet,disintegrating 4 mg PO Q6H PRN (Reason: nausea and vomiting) Qty: 14 RF: 0 Naprosyn 500 mg tablet 500 mg PO BID PRN (Reason: pain) Qty: 20 RF: 0 Tresiba FlexTouch U-100 100 unit/mL (3 mL) insulin pen 10 unit SUBCUT BEDTIME RF: 0 insulin aspart U-100 [Novolog U-100 Insulin aspart] 100 unit/mL solution See Rx Instructions .ROUTE .COMPLEX RF: 0 carbamide peroxide [Debrox] 6.5 % Drops See Rx Instructions .ROUTE .COMPLEX RF: 0 cholecalciferol (vitamin D3) [Vitamin D3] 25 mcg (1,000 unit) Tablet 25 mcg PO DAILY RF: 0 Januvia 100 mg Tablet 100 mg PO DAILY RF: 0 Flonase Sensimist 27.5 mcg/actuation [place],Suspension 1 spray INTRANASAL DAILY RF: 0 Daliresp 500 mcg tablet 500 mcg PO DAILY RF: 0 Trelegy Ellipta 100-62.5-25 mcg blister with device See Rx Instructions .ROUTE .COMPLEX RF: 0 Ozempic See Rx Instructions .ROUTE .COMPLEX RF: 0 ipratropium-albuterol 0.5 mg-3 mg(2.5 mg base)/3 mL Solution For Nebulization 3 ml INHALATION Q4H PRN (Reason: Shortness Of Breath) RF: 0 acetaminophen [Tylenol Extra Strength] 500 mg Tablet 1,000 mg PO Q4H PRN (Reason: Pain) RF: 0 magnesium hydroxide [Milk of Magnesia] 400 mg/5 mL Suspension See Rx Instructions .ROUTE .COMPLEX RF: 0 bisacodyl [Dulcolax (bisacodyl)] 10 mg Suppository 10 mg [place] DAILY PRN (Reason: Constipation) RF: 0 Fleet Enema 19-7 gram/118 mL Enema 118 ml [place] DAILY PRN (Reason: Constipation) RF: 0 gabapentin 300 mg capsule 300 mg PO BID RF: 0 bisacodyl [Dulcolax (bisacodyl)] 5 mg Tablet,Delayed Release (Dr/Ec) 10 mg PO DAILY PRN (Reason: Constipation) RF: 0 hydroxyzine pamoate [Vistaril] 25 mg Capsule See Rx Instructions .ROUTE .COMPLEX RF: 0 rosuvastatin 40 mg tablet 40 mg PO BEDTIME RF: 0 melatonin 5 mg Tablet 5 mg PO BEDTIME RF: 0 pioglitazone [Actos] 15 mg Tablet 7.5 mg PO DAILY RF: 0 venlafaxine 75 mg Capsule,Extended Release 24hr 75 mg PO DAILY RF: 0 sodium chloride [Saline Nasal] 0.65 % Aerosol,[place] See Rx Instructions .ROUTE .COMPLEX RF: 0 furosemide [Lasix] 40 mg tablet 40 mg PO QAM RF: 0 levetiracetam 500 mg tablet See Rx Instructions .ROUTE .COMPLEX RF: 0 Discharge Orders: Discharge ED (Routine); Ordered 04/11/20 Ordered By: Indigo Hurtado Referrals: Tashi Acosta MD [Primary Care Provider] - 1-3 days Discharge Diet: Usual diet Discharge Activity: Increase activity as tolerated Patient Instructions: Heart Failure (ED), Palpitations (ED) Activity Restrictions/Additional Instructions: Return for any new or worsening symptoms. Follow-up with your primary care provider within 3 days. Continue your home medications. Coding Level of Care Code ED Residential Installer for Chg Fwd Exam Comprehensive
[2020-04-11 18:04] LABS: Basophils # 0.1 10^3/uL (0.0-0.1); Basophils % 0.6 %; Eosinophils # 0.2 10^3/uL (0.0-0.8); Hematocrit 46.1 % (37.0-47.0); Hemoglobin 14.2 g/dL (11.5-15.3); Lymphocytes # 1.5 10^3/uL (0.8-4.8); Lymphocytes % 19.7 %; Mean Corpuscular HGB Conc 30.8 g/dL (30.0-36.0); Mean Corpuscular Hemoglobin 27.6 pg (28.0-34.0); Mean Corpuscular Volume 89.5 fL (81-99); Mean Platelet Volume 11.6 fL (7.4-10.4); Monocytes # 0.6 10^3/uL (0.2-0.9); Monocytes % 7.7 %; Neutrophils # 5.46 10^3/uL (1.8-7.7); Neutrophils % 69.7 %; Nucleated Red Blood Cells % 0 %; Platelet Count 169 10^3/cmm (130-400); Red Blood Count 5.15 10^6/uL (4.1-5.3); Red Cell Distribution Width 15.4 % (12.1-15.1); White Blood Count 7.8 10^3/uL (4.0-10.0)
[2020-04-11 18:15] LABS: INR 0.99 (0.8-1.2)
[2020-04-11 18:19] VITALS: BP 138/67; PULSE 84; RESP 16; O2SAT 99
[2020-04-11 18:26] LABS: Troponin(5th) Baseline 16 ng/L (0-10)
[2020-04-11 18:34] LABS: Alanine Aminotransferase 15 U/L (0-33); Albumin Level 4.2 g/dL (3.5-5.2); Alkaline Phosphatase 91 IU/L (35-105); Anion Gap 14.4 (5-19); Aspartate Amino Transferase 21 U/L (0-32); Blood Urea Nitrogen 21 mg/dL (8-23); Calcium 9.9 mg/dL (8.5-10.5); Carbon Dioxide 28 mmol/L (22-29); Chloride 101 mmol/L (98-107); Glomerular Filtration Rate 62.5 mL/min (90-130); Glucose 131 mg/dL (65-115); NT Pro B Type Natriuretic Pept 1919 pg/mL (0-125); Osmolality Calculated 293 mOsm/kg (285-295); Potassium 4.4 mmol/L (3.5-5.1); Sodium 139 mmol/L (136-145); Thyroid Stimulating Hormone 1.74 uIU/mL (0.27-4.20); Total Bilirubin 0.4 mg/dL (0.15-1.2)
[2020-04-11 19:15] VITALS: BP 120/86; PULSE 87; RESP 16; O2SAT 99
[2020-04-11 19:38] VITALS: BP 142/78; PULSE 89; RESP 18; O2SAT 98
[2020-04-11 21:00] VITALS: BP 120/84; PULSE 92; RESP 17; TEMP 36.8; O2SAT 94
--- NOTE | 2020-04-11 23:31 | ECG_ITS ---
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
[2020-04-12 19:51] LABS: Globulin 2.6 g/dL (1.3-4.6); Total Protein 6.8 g/dL (6.6-8.7)
== END 2020-04-11 21:00 | disposition home or self-care (01) ==
PROVIDERS: Emergency Provider Family Medicine; PCP Family Medicine
DX: R00.2 Palpitations (principal); I11.0 Hypertensive heart disease with heart failure; I50.9 Heart failure, unspecified; Z79.4 Long term (current) use of insulin; J44.9 Chronic obstructive pulmonary disease, unspecified; E78.5 Hyperlipidemia, unspecified; E11.9 Type 2 diabetes mellitus without complications; F17.210 Nicotine dependence, cigarettes, uncomplicated
CPT/HCPCS: 12345; 71045; 80053; 83880; 84443; 84484; 85025; 85610; 93005; 99283; 99284

== ENCOUNTER 2020-05-16 16:12 | Emergency (ER) | payer MEDICARE, MEDICAID, SELFPAY ==
[2020-05-16 16:26] VITALS: BP 117/84; PULSE 82; RESP 18; TEMP 36.6; O2SAT 94; BMI 46.8
[2020-05-16 16:32] VITALS: BP 138/78; PULSE 66; RESP 18; O2SAT 94
--- NOTE | 2020-05-16 16:46 | XRR_ITS ---
PROCEDURE INFORMATION: Exam: XR Left Foot Exam date and time: 05/16/2020 4:55 PM Age: 65 years old Clinical indication: Injury or trauma; Fall; Blunt trauma; Toes; Left lesser toe(s); Additional info: Pain to small toe, hit on object 3 days ago TECHNIQUE: Imaging protocol: XR Left foot. Views: 3 or more views. COMPARISON: No relevant prior studies available. FINDINGS: Bones/joints: No acute displaced fracture or dislocation. The joint spaces are generally maintained. Bone mineralization is within normal limits for age. Soft tissues: No radiographic abnormalities. XR/XR foot LT min 3V* [id number] IMPRESSION: No acute displaced fracture or dislocation.
--- NOTE | 2020-05-16 16:47 | ED_ITS ---
HPI - Extremity Problem General: Chief complaint: Extremity Injury, Lower Stated complaint: left foot toe injury Time Seen by Provider: 05/16/20 16:39 Source: patient Mode of arrival: ambulatory Limitations: no limitations History of Present Illness: HPI Narrative: 65-year-old obese female who states that 3 nights ago she had gotten up to use the restroom in the middle of the n ight and accidentally hit her left small toe on her walker. She noticed ecchymosis develop to the small toe the following day. She has continued to have tenderness along the small toe. She denies any other injury or trauma and has no other complaints. MD Complaint: extremity pain Onset (ago): day(s) (3) Pain Consistency: constant Location: left and toe Quality: aching and dull Radiation: none Relieving factors: nothing Exacerbating factors: range of motion and walking Associated symptoms: Reports no associated symptoms; Deny chest pain, fever(s) or rash Review of Systems Const: Denies: fever(s), malaise or diaphoresis Card: Denies: chest pain, palpitations or syncope Resp: Denies: dyspnea GI: Denies: abdominal pain, nausea or vomiting Skin/Breast: Denies: rash Neuro: Denies: headache(s) or confusion PFSH ED PFSH: Medical History Benign essential hypertension with target blood pressure below 140/90 COPD (chronic obstructive pulmonary disease) Depression Diastolic congestive heart failure Hyperlipidemia Hypertension Moderate to severe mitral regurgitation Nonischemic cardiomyopathy Obesity Obstructive sleep apnea Pulmonary hypertension Seizure disorder Tricuspid regurgitation Type 2 diabetes mellitus Surgical History H/O mitral valve replacement History of Ulnar nerve compression Family History (Reviewed 04/11/20 @ 17:35 by Indigo Hurtado MD, [facility] [place]) Other CAD (coronary artery disease) Social History Smoking and tobacco status: current every day smoker cigarettes Years cigarettes smoked: 30 [ Other cigarette details: Hx of 1PPD x 30 Years ] Second hand smoke exposure: Yes Alcohol intake: never Caregiver/support person: Yes Lives independently: Yes Household members: none Housing: Assisted Living Facility Marital status: / Current occupational status: retired and disabled History of recent travel: No Current gender identity: Female Physical Exam Const: COMMON NORMALS: no acute distress, average body habitus, alert and well nourished GENERAL APPEARANCE: cooperative, comfortable and well kempt; not in distress ORIENTATION/CONSCIOUSNESS: Yes awake HENMT: COMMON NORMALS: normocephalic, atraumatic and Normal external nose present HEAD & SCALP: normocephalic and atraumatic NOSE: Normal external nose present MOUTH: Normal oral and palatal mucosa present Eye: COMMON NORMALS: EOMs intact bilaterally and conjunctivae normal CONJUNCTIVA: Yes conjunctivae normal Neck/C-Spine: GENERAL: Yes normal visual inspection, No tracheal deviation and No submandibular swelling Chest: COMMONS NORMALS: normal inspection of the chest Resp: COMMON NORMALS: normal respiratory effort, No retractions and No use of accessory muscles Cardio: COMMON NORMALS: regular rhythm and Peripheral pulses 2+ throughout RHYTHM: regular rhythm PERIPHERAL PULSES: Peripheral pulses 2+ throughout GI: COMMON NORMALS: Normal to inspection, nondistended, normoactive bowel sounds present, Soft to palpation and non-tender PALPATION: Yes Soft to palpation Extremity: COMMON NORMALS: full ROM and no pedal edema NARRATIVE EXTREMITY EXAM: Left small toe is ecchymotic and purple. She does have capillary refill in the small toe. She has palpable dorsalis pedis and posterior tibialis pulse to the left lower extremity. She is able to wiggle her toes without difficulty. Neuro: COMMON NORMALS: no focal motor deficits SENSORIUM/ORIENTATION: Yes alert Psych: APPEARANCE: Yes well kempt Skin: COMMON NORMALS: no rashes or lesions noted GENERAL SKIN EXAM: no rashes or lesions noted Course ED course: Patient was given 650 mg oral Tylenol for pain and an x-ray of the left foot was obtained. Anticipate supportive care, javed tape if necessary, and follow-up with a PCP. Vital Signs: Vital signs: Vital Signs Temperature 97.8 F 05/16/20 16:26 Pulse Rate 66 05/16/20 16:32 Respiratory Rate 18 05/16/20 16:32 Blood Pressure 138/78 05/16/20 16:32 Pulse Oximetry 94 05/16/20 16:32 MDM - Extremity (Nontraumatic) MDM Narrative: Medical decision making narrative: 65-year-old female who sustained a contusion to the left small toe. No radiographic evidence of fracture per radiology. Should be recommended supportive care, elevation, and protection of the foot and toes. Imaging Data^: Other Xray: My impression: no acute findings. Discharge Plan Discharge Patient Disposition: Home Condition: Stable Prescriptions: No Action Cough Drops See Rx Instructions .ROUTE .COMPLEX RF: 0 Zofran 4 mg tablet 4 mg PO .Q4-6H PRN (Reason: nausea and vomiting) RF: 0 ondansetron 4 mg tablet,disintegrating 4 mg PO Q6H PRN (Reason: nausea and vomiting) Qty: 14 RF: 0 Naprosyn 500 mg tablet 500 mg PO BID PRN (Reason: pain) Qty: 20 RF: 0 Tresiba FlexTouch U-100 100 unit/mL (3 mL) insulin pen 10 unit SUBCUT BEDTIME RF: 0 insulin aspart U-100 [Novolog U-100 Insulin aspart] 100 unit/mL solution See Rx Instructions .ROUTE .COMPLEX RF: 0 carbamide peroxide [Debrox] 6.5 % Drops See Rx Instructions .ROUTE .COMPLEX RF: 0 cholecalciferol (vitamin D3) [Vitamin D3] 25 mcg (1,000 unit) Tablet 25 mcg PO DAILY RF: 0 Januvia 100 mg Tablet 100 mg PO DAILY RF: 0 Flonase Sensimist 27.5 mcg/actuation [place],Suspension 1 spray INTRANASAL DAILY RF: 0 Daliresp 500 mcg tablet 500 mcg PO DAILY RF: 0 Trelegy Ellipta 100-62.5-25 mcg blister with device See Rx Instructions .ROUTE .COMPLEX RF: 0 Ozempic See Rx Instructions .ROUTE .COMPLEX RF: 0 ipratropium-albuterol 0.5 mg-3 mg(2.5 mg base)/3 mL Solution For Nebulization 3 ml INHALATION Q4H PRN (Reason: Shortness Of Breath) RF: 0 acetaminophen [Tylenol Extra Strength] 500 mg Tablet 1,000 mg PO Q4H PRN (Reason: Pain) RF: 0 magnesium hydroxide [Milk of Magnesia] 400 mg/5 mL Suspension See Rx Instructions .ROUTE .COMPLEX RF: 0 bisacodyl [Dulcolax (bisacodyl)] 10 mg Suppository 10 mg [place] DAILY PRN (Reason: Constipation) RF: 0 Fleet Enema 19-7 gram/118 mL Enema 118 ml [place] DAILY PRN (Reason: Constipation) RF: 0 gabapentin 300 mg capsule 300 mg PO BID RF: 0 bisacodyl [Dulcolax (bisacodyl)] 5 mg Tablet,Delayed Release (Dr/Ec) 10 mg PO DAILY PRN (Reason: Constipation) RF: 0 hydroxyzine pamoate [Vistaril] 25 mg Capsule See Rx Instructions .ROUTE .COMPLEX RF: 0 rosuvastatin 40 mg tablet 40 mg PO BEDTIME RF: 0 melatonin 5 mg Tablet 5 mg PO BEDTIME RF: 0 pioglitazone [Actos] 15 mg Tablet 7.5 mg PO DAILY RF: 0 venlafaxine 75 mg Capsule,Extended Release 24hr 75 mg PO DAILY RF: 0 sodium chloride [Saline Nasal] 0.65 % Aerosol,[place] See Rx Instructions .ROUTE .COMPLEX RF: 0 furosemide [Lasix] 40 mg tablet 40 mg PO QAM RF: 0 levetiracetam 500 mg tablet See Rx Instructions .ROUTE .COMPLEX RF: 0 Discharge Orders: Discharge ED (Routine); Ordered 05/16/20 Ordered By: Moiéss Nunes Referrals: Tashi Acosta MD [Primary Care Provider] - Discharge Diet: Diabetic Discharge Activity: Increase activity as tolerated Patient Instructions: Contusion, Opioid Safety Coding Level of Care Code ED Benefit Specialist for Chg Fwd Exam Comprehensive
[2020-05-16] MEDS: acetaminophen 325 mg Tablet 650 MG PO (17:17)
[2020-05-16 18:02] VITALS: BP 124/74; PULSE 84; RESP 18; TEMP 36.4; O2SAT 93
== END 2020-05-16 18:04 | disposition home or self-care (01) ==
PROVIDERS: Emergency Provider Student in an Organized Health Care Education/Training Program; PCP Family Medicine
DX: S90.122A Contusion of left lesser toe(s) without damage to nail, initial encounter (principal); Z79.4 Long term (current) use of insulin; J44.9 Chronic obstructive pulmonary disease, unspecified; I11.0 Hypertensive heart disease with heart failure; I50.30 Unspecified diastolic (congestive) heart failure; E78.5 Hyperlipidemia, unspecified; E11.9 Type 2 diabetes mellitus without complications; F17.210 Nicotine dependence, cigarettes, uncomplicated; W22.8XXA Striking against or struck by other objects, initial encounter
CPT/HCPCS: 12345; 73630; 99282

== ENCOUNTER 2020-06-23 14:29 | Outpatient (CLI) | payer MEDICARE, MEDICAID, SELFPAY ==
--- NOTE | 2020-06-23 | US_ITS ---
WS: [id number] RIGHT UPPER QUADRANT ULTRASOUND HISTORY: ELEVATED ALKALINE PHOSPHATASE LEVEL COMPARISON: None available. Liver: 16.1 cm in length. Moderately enlarged liver. Moderate coarsened echogenicity throughout the l iver from hepatic steatosis or hepatocellular disease. No mass or bile duct dilatation. Gallbladder: Normally distended gallbladder with no stones or wall thickening. CBD: 0.4 cm Pancreas: Echogenic pancreas is poorly visualized. Right kidney: 11.0 cm in length. Normal size and echogenicity. No hydronephrosis or mass. Aorta and IVC: Unremarkable abdominal aorta and IVC. No ascites. US/US liver [id number] IMPRESSION: 1. Moderate hepatomegaly and marked steatosis. 2. Negative gallbladder.
== END 2020-06-23 14:30 | disposition home or self-care (01) ==
PROVIDERS: PCP Family Medicine; Visit Provider Family Medicine
DX: R74.8 Abnormal levels of other serum enzymes (principal); R16.0 Hepatomegaly, not elsewhere classified; K76.0 Fatty (change of) liver, not elsewhere classified
CPT/HCPCS: 76705

== ENCOUNTER 2020-07-21 09:51 | Outpatient (CLI) | payer MEDICARE, MEDICAID, SELFPAY ==
[2020-07-21] MEDS: denosumab 60 mg SDV SUBCUT (10:20)
[2020-07-21 10:35] VITALS: BP 109/65; PULSE 82; RESP 18; TEMP 36.3; O2SAT 96
== END 2020-07-21 09:52 | disposition home or self-care (01) ==
LOC: ONCMED 09:52
PROVIDERS: PCP Family Medicine; Visit Provider Family Medicine
DX: M81.0 Age-related osteoporosis without current pathological fracture (principal)
CPT/HCPCS: 96372; J0897

== ENCOUNTER 2020-09-07 13:49 | Outpatient (CLI) | payer MEDICARE, MEDICAID, SELFPAY ==
--- NOTE | 2020-09-07 14:13 | XR_ITS ---
WS: [id number] SCREENING DEXA SCAN Birthday [place] CLINICAL INFORMATION: OSTEOPOROSIS COMPARISON: FINDINGS: The L1-L4 bone mineral density measures 1.018 g/cm2. This corresponds to a T score score of -1.3 and Z score of -0.8. Left femoral neck bone mineral density measures 0.714 g/cm2. This corresponds to a T score of -2.3 an d Z score of -1.8. Right femoral neck bone mineral density measures 0.734 g/cm2. This corresponds to a T score -2.2of an d Z score of -1.6. Mean femoral neck bone mineral density measures 0.724 g/cm2. This corresponds to a T score of -2.2 an d Z score of -1.7. XR/XR DEXA axial skeleton* [id number] IMPRESSION: Osteopenia Patient's FRAX calculated 10 year probability for major osteoporotic fracture i s 26.6 % and osteoporotic hip fracture is 11.6%.
== END 2020-09-07 13:50 | disposition home or self-care (01) ==
PROVIDERS: PCP Family Medicine; Visit Provider Family Medicine
DX: M81.0 Age-related osteoporosis without current pathological fracture (principal); M85.88 Other specified disorders of bone density and structure, other site
CPT/HCPCS: 77080

== ENCOUNTER 2020-10-22 09:26 | Outpatient (CLI) | payer MEDICARE, MEDICAID, SELFPAY ==
--- NOTE | 2020-10-22 10:00 | CT_ITS ---
WS: [id number] LDCT LUNG CANCER SCREENING HISTORY: Nicotine Dependence TECHNIQUE: Axial imaging performed from the apices to 1 cm below the costophrenic angles. Coronal and sagittal reformats are submitted with axial MIP series. All CT scans at [facility] use at least one of these dose optimization techniques: automated exposure control; mA and/or kV adjustment per patient size (includes targeted exams where dose is matched to clinical indication); or iterativ e reconstruction. DLP: 95.69 mGy.cm DIvol: 2.99 mGy COMPARISON: 05/20/2019 Diagnostic quality: Limited by body habitus. Lung Nodules: Focal area of irregular consolidation RIGHT upper lobe extends to abut the major fissur e. There is irregular nodule measures at least 4.7 x 2.2 cm. -Benign granuloma RIGHT lung base. Linea r atelectasis at the LEFT lung base. Lungs: Hyperinflated lungs with emphysema. Heart: Heart is moderately enlarged. Other findings: Mild enlargement of the LEFT thyroid. Normal size pulmonary artery. CT/CT lung screening [id number] IMPRESSION: LUNG-RADS: 4B-Suspicious Follow up: Chest CT with IV contrast. OTHER FINDINGS (S MODIFIER): None. Consolidation in the RIGHT upper lobe may be pneumonia but needs further evalua tion. New since 05/20/2019.
== END 2020-10-22 09:27 | disposition home or self-care (01) ==
LOC: RAD 09:29
PROVIDERS: PCP Family Medicine; Visit Provider Internal Medicine Critical Care Medicine
DX: Z12.2 Encounter for screening for malignant neoplasm of respiratory organs (principal); F17.210 Nicotine dependence, cigarettes, uncomplicated; E04.9 Nontoxic goiter, unspecified
CPT/HCPCS: 71271

== ENCOUNTER 2020-10-28 16:29 | Inpatient (IN) | payer MEDICARE, MEDICAID, SELFPAY ==
[2020-10-28 16:34] VITALS: BP 105/73; PULSE 105; RESP 25; TEMP 36.6; O2SAT 98; BMI 47.0
[2020-10-28 16:43] VITALS: BP 105/73; PULSE 106; RESP 28; O2SAT 98
--- NOTE | 2020-10-28 17:08 | XRR_ITS ---
PROCEDURE INFORMATION: Exam: XR Chest Exam date and time: 10/28/2020 5:08 PM Age: 65 years old Clinical indication: Shortness of breath; Additional info: SOB TECHNIQUE: Imaging protocol: XR of the chest. Views: 1 view. COMPARISON: CR XR chest 1V portable [id number] 04/11/2020 5:44 PM FINDINGS: Lungs: Patchy large airspace lesion in the right upper lobe. Margins are not well-defined. Prominent interstitium stable from prior. Pleural spaces: Unremarkable. No pleural effusion. No pneumothorax. Heart/Mediastinum: Mild cardiac enlargement. Bones/joints: Demineralized bones. Advanced arthritis changes of the shoulders. Osteoarthritis pattern. XR/XR chest 1V portable [id number] IMPRESSION: 1. Large right upper lobe airspace lesion. Pneumonia favored. 2. Radiographic follow-up is indicated.
--- NOTE | 2020-10-28 17:09 | ECG_ITS ---
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: : 1955 Requested By: Indigo Hurtado I Order Number: [id number] Reading MD: TIMOTEO BERNABE Measurements Intervals [place] Rate: 101 P: 48 TX: 164 QRS: 67 QRSD: 86 T: 53 QT: 346 QTc: 450 Interpretive Statements SINUS TACHYCARDIA WITH FREQUENT VENTRICULAR PREMATURE COMPLEXES POSSIBLE LEFT ATRIAL ENLARGEMENT [-0.1mV P WAVE IN V1/V2] ABNORMAL RHYTHM ECG Compared to ECG 04/11/2020 19:52:53 Sinus rhythm no longer present Electronically Signed On 10-28-2020 21:21:56 CDT by TIMOTEO BERNABE [id number]
[2020-10-28 17:33] LABS: SARS Covid-2 Antigen Negative (Negative)
[2020-10-28 17:42] LABS: Basophils # 0.2 10^3/uL (0.0-0.1); Basophils % 0.6 %; Hematocrit 47.5 % (37.0-47.0); Hemoglobin 14.9 g/dL (11.5-15.3); Lymphocytes % 3.6 %; Mean Corpuscular HGB Conc 31.4 g/dL (30.0-36.0); Mean Corpuscular Volume 89.1 fL (81-99); Mean Platelet Volume 10.9 fL (7.4-10.4); Monocytes # 1.6 10^3/uL (0.2-0.9); Monocytes % 5.4 %; Neutrophils # 24.64 10^3/uL (1.8-7.7); Neutrophils % 86.2 %; Nucleated Red Blood Cells % 0 %; Platelet Count 223 10^3/cmm (130-400); Red Blood Count 5.33 10^6/uL (4.1-5.3); Red Cell Distribution Width 14.1 % (12.1-15.1); White Blood Count 28.6 10^3/uL (4.0-10.0)
[2020-10-28 17:51] LABS: Lactic Sepsis W/Reflex 2.2 mmol/L (0.5-2.2)
[2020-10-28 17:55] LABS: Troponin(5th) Baseline 21 ng/L (0-10)
[2020-10-28 18:02] LABS: NT Pro B Type Natriuretic Pept 4206 pg/mL (0-125); Procalcitonin 7.95 ng/mL (0-0.5)
[2020-10-28 18:10] LABS: ABG PCO2 39.8 mmHg (35-45); ABG PH Result 7.42 (7.35-7.45); Base Excess ABG 1.3 mmol/L (-2.0-2.0); Blood Gas Allen Test Pos; Blood Gas Sample Type Arterial; HCO3 ABG 25.8 mmol/L (22-26); PO2 ABG 76.1 mmHg (80.0-100.0)
[2020-10-28 18:11] LABS: Blood Gas Operator Identificat MONRO; Blood Gas Sample Site Brachial, left; Oxygen Device NC
[2020-10-28 18:13] LABS: Alanine Aminotransferase 11 U/L (0-33); Albumin Level 3.8 g/dL (3.5-5.2); Alkaline Phosphatase 89 IU/L (35-105); Anion Gap 19.2 (5-19); Aspartate Amino Transferase 14 U/L (0-32); Blood Urea Nitrogen 25 mg/dL (8-23); Calcium 8.4 mg/dL (8.5-10.5); Carbon Dioxide 26 mmol/L (22-29); Chloride 95 mmol/L (98-107); Globulin 2.7 g/dL (1.3-4.6); Glomerular Filtration Rate 44.8 mL/min (90-130); Glucose 154 mg/dL (65-115); Osmolality Calculated 289 mOsm/kg (285-295); Potassium 4.2 mmol/L (3.5-5.1); Sodium 136 mmol/L (136-145); Total Bilirubin 0.9 mg/dL (0.15-1.2); Total Protein 6.5 g/dL (6.6-8.7)
[2020-10-28] MEDS: levofloxacin-dextrose 5 % 500 MG/100 ML PREMIX 100 MG IV (18:21)
[2020-10-28 18:28] LABS: C Reactive Protein 499.8 mg/L (0.0-4.9)
--- NOTE | 2020-10-28 18:31 | ED_ITS ---
HPI - SOB/Dyspnea General: Chief Complaint: Shortness of Breath/Dyspnea Stated Complaint: DIFFICULTY BREATHING Time Seen by Provider: 10/28/20 16:31 Source: patient Mode of arrival: EMS Limitations: no limitations History of Present Illness: HPI Narrative: This is a 65-year-old female patient with a history of COPD and chronic respiratory failure who is on 2 L of oxygen per minute via nasal cannula daily. She presents to the emergency department with worsening shortness of breath that started 2 days ago. She denies any fever, endorses cough. She has received 2 doses of her Covid vaccine. When she called for an ambulance they found that she was hypoxic on 2 L and increased her oxygen to 6 L/min to maintain her saturations in the low to mid 90s. She was brought in to be evaluated. MD elicited complaint: shortness of breath Pertinent past history: COPD, congestive heart failure and diabetes Onset (ago): day(s) (3) Timing: constant and progressively worsening Severity: severe Exacerbating factors: lying flat and exertion Relieving factors: oxygen Known history of: congestive heart failure Associated symptoms: Reports cough and orthopnea; Deny abdominal pain, chest congestion, chest pain, diaphoresis, dizziness, extremity pain, fever(s), hemoptysis, lightheadedness, myalgias, nausea, palpitations, paresthesias, polydipsia, polyuria, rash, sense of impending doom, syncope or vomiting Treatment prior to arrival: oxygen Review of Systems General: Reports: 10 or more systems reviewed and unremarkable except in HPI and below Const: Denies: fever(s) or diaphoresis Card: Reports: orthopnea; Denies: chest pain, palpitations, lightheadedness or syncope Resp: Denies: hemoptysis or chest congestion GI: Denies: abdominal pain, nausea or vomiting Musc: Denies: extremity pain Neuro: Denies: dizziness Endo: Denies: polyuria or polydipsia PFS ED PFSH: Medical History (Updated 10/29/20 @ 00:00 by Indigo Hurtado MD, [facility]) Benign essential hypertension with target blood pressure below 140/90 COPD (chronic obstructive pulmonary disease) Depression Diastolic congestive heart failure Hyperlipidemia Hypertension Moderate to severe mitral regurgitation Nonischemic cardiomyopathy Obesity Obstructive sleep apnea Pulmonary hypertension Seizure disorder Tricuspid regurgitation Type 2 diabetes mellitus Surgical History H/O mitral valve replacement History of Ulnar nerve compression Family History Brother CAD (coronary artery disease) Sister CAD (coronary artery disease) Grandmother Diabetes Mother Stroke Denies family history of Clotting disorder Dementia Chronic kidney disease (CKD) Suicide Anesthesia complication Bleeding disorder Lung disease Cancer Social History Smoking and tobacco status: current every day smoker cigarettes Years cigarettes smoked: 30 [ Other cigarette details: Hx of 1PPD x 30 Years ] Second hand smoke exposure: Yes Smoking risk assessment/counseling performed?: Yes Alcohol intake: never Counseling given: No Counseling given: No Caregiver/support person: Yes Lives independently: No Housing: Assisted Living Facility Marital status: / Current occupational status: retired and disabled History of recent travel: No Current gender identity: Female Physical Exam Const: COMMON NORMALS: no acute distress, average body habitus, patient oriented x3, no limitations, healthy appearing, alert and well nourished HENMT: COMMON NORMALS: normocephalic, atraumatic and moist oral mucous membranes HEAD & SCALP: normocephalic and atraumatic Neck/C-Spine: COMMON NORMALS: no meningeal signs and no JVD Resp: COMMON NORMALS: normal respiratory effort, No retractions, No use of accessory muscles and percussion normal AUSCULTATION: rales and diminished lung sounds PERCUSSION: percussion normal Cardio: COMMON NORMALS: no JVD, regular rate, regular rhythm, S1 normal heart sound present, S2 normal heart sound present, No gallops present (Cardio), No clicks present (Cardio), No murmurs present (Cardio), No rub (Cardio) and Peripheral pulses 2+ throughout RATE: regular rate RHYTHM: regular rhythm HEART SOUNDS: S1 normal heart sound present and S2 normal heart sound present PERIPHERAL PULSES: Peripheral pulses 2+ throughout GI: COMMON NORMALS: Normal to inspection, nondistended, normoactive bowel sounds present, Soft to palpation, non-tender, No hepatosplenomegaly present, no masses and no bruits PALPATION: Yes Soft to palpation and Yes No hepatos plenomegaly present Extremity: COMMON NORMALS: normal to inspection, full ROM, capillary refill normal, no calf tenderness and no pedal edema Neuro: COMMON NORMALS: patient oriented x3 SENSORIUM/ORIENTATION: Yes alert MENINGEAL SIGNS: Yes no meningeal signs Skin: COMMON NORMALS: no rashes or lesions noted, no wounds, turgor normal, no jaundice, no petechiae and no mottling GENERAL SKIN EXAM: no rashes or lesions noted and turgor normal Course Reevaluation(s): Reevaluation #1: Discussed her lab and imaging findings with her. Explained that she has a pretty large right upper lobe pneumonia, guy kocytosis. She will benefit from hospital admission. She voiced understanding and is in agreement with the plan. Time: 20:50 Consultations: Consultation #1: Discussed the patient with Dr. Salcedo, hospitalist and she kindly accepted the patient to her service. Time: 20:43 Vital Signs: Vital signs: Vital Signs Temperature 98 F 10/28/20 23:29 Pulse Rate 100 10/28/20 23:29 Respiratory Rate 22 H 10/28/20 23:29 Blood Pressure 100/68 10/28/20 23:29 Pulse Oximetry 98 10/28/20 23:29 MDM - SOB/Dyspnea MDM Narrative: Medical decision making narrative: 65-year-old female patient who presented to the emergency department in acute respiratory failure. On evaluation was found that she has a large right upper lobe pneumonia, she tested negative for COVID-19, CTA of her lungs was negative. She has significant leukocytosis and significantly elevated procalcitonin. She was given a dose of intravenous levofloxacin and admitted to the hospital for further evaluation and management. Medical Records: Attestation: I reviewed the patient's medical records. Lab Data: Attestation: I reviewed the patient's lab results. Labs: Lab Results 10/28/20 10/28/20 10/28/20 Range/Units 16:55 16:55 16:55 WBC 28.6 H (4.0-10.0) 10^3/ uL RBC 5.33 H (4.1-5.3) 10^6/u L Hgb 14.9 (11.5-15.3) g/dL Hct 47.5 H (37.0-47.0) % MCV 89.1 (81-99) fL MCH 28.0 (28.0-34.0) pg MCHC 31.4 (30.0-36.0) g/dL RDW 14.1 (12.1-15.1) % Plt Count 223 (130-400) 10^3/c mm MPV 10.9 H (7.4-10.4) fL Neut % (Auto) 86.2 % Lymph % (Auto) 3.6 % [place] % (Auto) 5.4 % Eos % (Auto) 0.0 % Baso % (Auto) 0.6 % Neut # (Auto) 24.64 H (1.8-7.7) 10^3/u L Lymph # (Auto) 1.0 (0.8-4.8) 10^3/u L [place] # (Auto) 1.6 H (0.2-0.9) 10^3/u L Eos # (Auto) 0.0 (0.0-0.8) 10^3/u L Baso # (Auto) 0.2 H (0.0-0.1) 10^3/u L Nucleated RBC % (a uto) 0 % Nucleated RBCs # 0.0 /100WBC Fibrinogen 1215 H (174-498) mg/dL D-Dimer 4.15 H (0-0.59) ug/mIFE U Specimen Type Sample Site ABG pH (7.35-7.45) ABG pCO2 (35-45) mmHg ABG pO2 (80.0-100.0) mmH g ABG HCO3 (22-26) mmol/L ABG Base Excess (-2.0-2.0) mmol/ L Miguel Test Hematocrit (37-47) % O2 Delivery Device O2 Liters/Min % FiO2 % Regional Administrative Assistant ID Sodium 136 (136-145) mmol/L Potassium 4.2 (3.5-5.1) mmol/L Chloride 95 L (98-107) mmol/L Carbon Dioxide 26 (22-29) mmol/L Anion Gap 19.2 H (5-19) BUN 25 H (8-23) mg/dL Creatinine 1.2 H (0.5-0.9) mg/dL GFR Calculation 44.8 L (90-130) mL/min Glucose 154 H (65-115) mg/dL Calculated Osmolal ity 289 (285-295) mOsm/k g Lactic Acid (0.5-2.2) mmol/L Calcium 8.4 L (8.5-10.5) mg/dL Total Bilirubin 0.9 (0.15-1.2) mg/dL AST 14 (0-32) U/L ALT 11 (0-33) U/L Alkaline Phosphata se 89 (35-105) IU/L Troponin T Baselin e (0-10) ng/L Troponin T 120 Min leyla (0-10) ng/L Delta Troponin T (0-10) ABS# C-Reactive Protein 499.8 H (0.0-4.9) mg/L NT-Pro-B Natriuret Pep 4206 H (0-125) pg/mL Total Protein 6.5 L (6.6-8.7) g/dL Albumin 3.8 (3.5-5.2) g/dL Globulin 2.7 (1.3-4.6) g/dL Procalcitonin 7.95 H (0-0.5) ng/mL SARS-CoV-2 Ag (Rap id) (Negative) 10/28/20 10/28/20 10/28/20 Range/Units 16:55 16:55 17:02 WBC (4.0-10.0) 10^3/ uL RBC (4.1-5.3) 10^6/u L Hgb (11.5-15.3) g/dL Hct (37.0-47.0) % MCV (81-99) fL MCH (28.0-34.0) pg MCHC (30.0-36.0) g/dL RDW (12.1-15.1) % Plt Count (130-400) 10^3/c mm MPV (7.4-10.4) fL Neut % (Auto) % Lymph % (Auto) % [place] % (Auto) % Eos % (Auto) % Baso % (Auto) % Neut # (Auto) (1.8-7.7) 10^3/u L Lymph # (Auto) (0.8-4.8) 10^3/u L [place] # (Auto) (0.2-0.9) 10^3/u L Eos # (Auto) (0.0-0.8) 10^3/u L Baso # (Auto) (0.0-0.1) 10^3/u L Nucleated RBC % (a uto) % Nucleated RBCs # /100WBC Fibrinogen (174-498) mg/dL D-Dimer (0-0.59) ug/mIFE U Specimen Type Sample Site ABG pH (7.35-7.45) ABG pCO2 (35-45) mmHg ABG pO2 (80.0-100.0) mmH g ABG HCO3 (22-26) mmol/L ABG Base Excess (-2.0-2.0) mmol/ L Miguel Test Hematocrit (37-47) % O2 Delivery Device O2 Liters/Min % FiO2 % Regional Administrative Assistant ID Sodium (136-145) mmol/L Potassium (3.5-5.1) mmol/L Chloride (98-107) mmol/L Carbon Dioxide (22-29) mmol/L Anion Gap (5-19) BUN (8-23) mg/dL Creatinine (0.5-0.9) mg/dL GFR Calculation (90-130) mL/min Glucose (65-115) mg/dL Calculated Osmolal ity (285-295) mOsm/k g Lactic Acid 2.2 (0.5-2.2) mmol/L Calcium (8.5-10.5) mg/dL Total Bilirubin (0.15-1.2) mg/dL AST (0-32) U/L ALT (0-33) U/L Alkaline Phosphata se (35-105) IU/L Troponin T Baselin e 21 H (0-10) ng/L Troponin T 120 Min leyla (0-10) ng/L Delta Troponin T (0-10) ABS# C-Reactive Protein (0.0-4.9) mg/L NT-Pro-B Natriuret Pep (0-125) pg/mL Total Protein (6.6-8.7) g/dL Albumin (3.5-5.2) g/dL Globulin (1.3-4.6) g/dL Procalcitonin (0-0.5) ng/mL SARS-CoV-2 Ag (Rap id) Negative (Negative) 10/28/20 10/28/20 Range/Units 17:58 18:51 WBC (4.0-10.0) 10^3/ uL RBC (4.1-5.3) 10^6/u L Hgb (11.5-15.3) g/dL Hct (37.0-47.0) % MCV (81-99) fL MCH (28.0-34.0) pg MCHC (30.0-36.0) g/dL RDW (12.1-15.1) % Plt Count (130-400) 10^3/c mm MPV (7.4-10.4) fL Neut % (Auto) % Lymph % (Auto) % [place] % (Auto) % Eos % (Auto) % Baso % (Auto) % Neut # (Auto) (1.8-7.7) 10^3/u L Lymph # (Auto) (0.8-4.8) 10^3/u L [place] # (Auto) (0.2-0.9) 10^3/u L Eos # (Auto) (0.0-0.8) 10^3/u L Baso # (Auto) (0.0-0.1) 10^3/u L Nucleated RBC % (a uto) % Nucleated RBCs # /100WBC Fibrinogen (174-498) mg/dL D-Dimer (0-0.59) ug/mIFE U Specimen Type Arterial Sample Site Brachial, left ABG pH 7.42 (7.35-7.45) ABG pCO2 39.8 (35-45) mmHg ABG pO2 76.1 L (80.0-100.0) mmH g ABG HCO3 25.8 (22-26) mmol/L ABG Base Excess 1.3 (-2.0-2.0) mmol/ L Miguel Test Pos Hematocrit 44.0 (37-47) % O2 Delivery Device Nc O2 Liters/Min 6.0 % FiO2 44.0 % Regional Administrative Assistant ID [place] Sodium (136-145) mmol/L Potassium (3.5-5.1) mmol/L Chloride (98-107) mmol/L Carbon Dioxide (22-29) mmol/L Anion Gap (5-19) BUN (8-23) mg/dL Creatinine (0.5-0.9) mg/dL GFR Calculation (90-130) mL/min Glucose (65-115) mg/dL Calculated Osmolal ity (285-295) mOsm/k g Lactic Acid (0.5-2.2) mmol/L Calcium (8.5-10.5) mg/dL Total Bilirubin (0.15-1.2) mg/dL AST (0-32) U/L ALT (0-33) U/L Alkaline Phosphata se (35-105) IU/L Troponin T Baselin e (0-10) ng/L Troponin T 120 Min leyla 19.04 H (0-10) ng/L Delta Troponin T -1.96 L (0-10) ABS# C-Reactive Protein (0.0-4.9) mg/L NT-Pro-B Natriuret Pep (0-125) pg/mL Total Protein (6.6-8.7) g/dL Albumin (3.5-5.2) g/dL Globulin (1.3-4.6) g/dL Procalcitonin (0-0.5) ng/mL SARS-CoV-2 Ag (Rap id) (Negative) Imaging Data^: CTA Chest: Attestation: I personally reviewed and interpreted this imaging study as follows: Radiologist's impression: [address] [id number] Scan ReportSigned Patient: Yaquelin Loera #: [id number]: 4Acct#:[id number]/Sex: 65 / FADM Date: 10/28/20Loc: ERRoom/Bed:Attending Dr: Ordering Provider/Ordering MD: Indigo Hurtado MD, [facility] Date of Service: 10/28/20 Procedure(s): CT angio chest PE protcl [id number] Accession Number(s): [id number] Report Number: [id number] PROCEDURE INFORMATION: Exam: CTA Chest With Contrast Exam date and time: 10/28/2020 7:09 PM Age: 65 years old Clinical indication: Shortness of breath; Additional info: SOB, hypoxia TECHNIQUE: Imaging protocol: Computed tomographic angiography of the chest with contrast. 3D rendering (Not supervised by radiologist): MIP and/or 3D reconstructed images were created by the technologist. Radiation optimization: All CT scans at this facility use at least one of these dose optimization techniques: automated exposure control; mA and/or kV adjustment per patient size (includes targeted exams where dose is matched to clinical indication); or iterative reconstruction. Contrast material: VISI 320; Contrast volume: 66 ml; Contrast route: INTRAVENOUS (IV); COMPARISON: CTA Chest-Pulmonary Emb [id number] 02/02/2019 3:33 PM RADIATION DOSE METRICS: Total DLP (mGy-cm): 537.13 FINDINGS: Pulmonary arteries: Normal. No pulmonary emboli. Aorta: Unremarkable. No aortic aneurysm. No aortic dissection. Lungs: Large dense area of airspace consolidation in the posterior segment of the right upper lobe. Air bronchograms are maintained through the region of consolidation. Mild emphysema. Negative for central airway obstruction. Pleural spaces: Unremarkable. No pneumothorax. No pleural effusion. Heart: Unremarkable. No cardiomegaly. No pericardial effusion. Mediastinal space: No thoracic esophageal wall thickening. Lymph nodes: Right paratracheal lymphadenopathy. For example index lymph node measures 2.5 cm long axis by 2.1 cm short axis. Bones/joints: Unremarkable. No acute fracture. Soft tissues: Unremarkable. CT/CT angio chest PE protcl [id number] IMPRESSION: 1. Right upper lobe bronchopneumonia is favored. 2. Negative for pulmonary embolism. 3. Radiographic follow-up is recommended after clinical treatment to confirm resolution. Radiation Dose CTDIVOL = (mGy): DLP = 537.13 (mGy-cm) Dictated By:Maria Del Rosario Collado By:Maria Del Rosario Collado Date/Time:10/28/202DD/ 39 CXR: Attestation: I personally reviewed and interpreted this imaging study as follows: Radiologist's impression: [address] [id number] ReportSigned Patient: Yaquelin Loera #: [id number]: 4Acct#:[id number]/Sex: 65 / FADM Date: 10/28/20Loc: ERRoom/Bed:Attending Dr: Ordering Provider/Ordering MD: Indigo Hurtado MD, [facility] Date of Service: 10/28/20 Procedure(s): XR chest 1V portable [id number] Accession Number(s): [id number] Report Number: [id number] PROCEDURE INFORMATION: Exam: XR Chest Exam date and time: 10/28/2020 5:08 PM Age: 65 years old Clinical indication: Shortness of breath; Additional info: SOB TECHNIQUE: Imaging protocol: XR of the chest. Views: 1 view. COMPARISON: CR XR chest 1V portable [id number] 04/11/2020 5:44 PM FINDINGS: Lungs: Patchy large airspace lesion in the right upper lobe. Margins are not well-defined. Prominent interstitium stable from prior. Pleural spaces: Unremarkable. No pleural effusion. No pneumothorax. Heart/Mediastinum: Mild cardiac enlargement. Bones/joints: Demineralized bones. Advanced arthritis changes of the shoulders. Osteoarthritis pattern. XR/XR chest 1V portable [id number] IMPRESSION: 1. Large right upper lobe airspace lesion. Pneumonia favored. 2. Radiographic follow-up is indicated. Dictated By:Maria Del Rosario Collado By:Maria Del Rosario Collado Date/Time:10/28/201727DD/ 26 EKG Data^: EKG 1: Attestation: I personally reviewed and interpreted this EKG as follows: EKG Interpretation Date: 10/28/20 EKG interpretation time: 19:14 Prior EKG tracings: not available for review Interpretation: Sinus tachycardia with frequent PVCs. Heart rate 105 bpm. Possible left atrial enlargement. No ST changes. Critical Care Time Critical Care Time: Critical Care Time: Yes Total Critical Care Time: 60 Attestation: This case had a high probability of a clinically significant, sudden, or life threatening deterioration of this patient's condition which required my full and direct attention, intervention and personal management. Discharge Plan Discharge Patient Disposition: Admitted As Inpatient Admit Provider: Gladys Salcedo Clinical Impression: Acute respiratory failure, Right upper lobe pneumonia Condition: Stable Coding Level of Care Code ED Verification Specialist for Kanchan Abdi
[2020-10-28 18:46] LABS: D Dimer 4.15 ug/mIFEU (0-0.59)
--- NOTE | 2020-10-28 19:09 | ECG_ITS ---
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: : 1955 Requested By: Indigo Hurtado I Order Number: [id number] Reading MD: TIMOTEO BERNABE Measurements Intervals [place] Rate: 105 P: 46 MS: 162 QRS: 69 QRSD: 86 T: 59 QT: 343 QTc: 453 Interpretive Statements SINUS TACHYCARDIA WITH FREQUENT VENTRICULAR PREMATURE COMPLEXES POSSIBLE LEFT ATRIAL ENLARGEMENT [-0.1mV P WAVE IN V1/V2] ABNORMAL RHYTHM ECG Compared to ECG 10/28/2020 17:14:12 No significant changes Electronically Signed On 10-28-2020 21:23:54 CDT by TIMOTEO BERNABE [id number]
--- NOTE | 2020-10-28 19:09 | CTR_ITS ---
PROCEDURE INFORMATION: Exam: CTA Chest With Contrast Exam date and time: 10/28/2020 7:09 PM Age: 65 years old Clinical indication: Shortness of breath; Additional info: SOB, hypoxia TECHNIQUE: Imaging protocol: Computed tomographic angiography of the chest with contrast. 3D rendering (Not supervised by radiologist): MIP and/or 3D reconstructed images were created by the technologist. Radiation optimization: All CT scans at this facility use at least one of these dose optimization techniques: automated exposure control; mA and/or kV adjustment per patient size (includes targeted exams where dose is matched to clinical indication); or iterative reconstruction. Contrast material: VISI 320; Contrast volume: 66 ml; Contrast route: INTRAVENOUS (IV); COMPARISON: CTA Chest-Pulmonary Emb [id number] 02/02/2019 3:33 PM RADIATION DOSE METRICS: Total DLP (mGy-cm): 537.13 FINDINGS: Pulmonary arteries: Normal. No pulmonary emboli. Aorta: Unremarkable. No aortic aneurysm. No aortic dissection. Lungs: Large dense area of airspace consolidation in the posterior segment of the right upper lobe. Air bronchograms are maintained through the region of consolidation. Mild emphysema. Negative for central airway obstruction. Pleural spaces: Unremarkable. No pneumothorax. No pleural effusion. Heart: Unremarkable. No cardiomegaly. No pericardial effusion. Mediastinal space: No thoracic esophageal wall thickening. Lymph nodes: Right paratracheal lymphadenopathy. For example index lymph node measures 2.5 cm long axis by 2.1 cm short axis. Bones/joints: Unremarkable. No acute fracture. Soft tissues: Unremarkable. CT/CT angio chest PE protcl [id number] IMPRESSION: 1. Right upper lobe bronchopneumonia is favored. 2. Negative for pulmonary embolism. 3. Radiographic follow-up is recommended after clinical treatment to confirm resolution. Radiation Dose CTDIVOL = (mGy): DLP = 537.13 (mGy-cm)
[2020-10-28 19:25] LABS: Reflex Lactate Order REFLEX LACTIC ORDERD
[2020-10-28 19:29] LABS: Slide Review Slide Review Perform
[2020-10-28] MEDS: iodixanol 320 mg/mL 100mL Btl IV (19:30)
[2020-10-28 19:38] VITALS: BP 111/68; PULSE 106; RESP 18; TEMP 37.2
[2020-10-28 20:00] LABS: Fibrinogen 1215 mg/dL (174-498)
[2020-10-28 20:26] LABS: Troponin 5 2HR 19.04 ng/L (0-10)
[2020-10-28 20:28] LABS: Troponin 5 2HR Delta -1.96 ABS# (0-10)
[2020-10-28 21:25] VITALS: BP 100/68; PULSE 100; RESP 22; TEMP 36.6
--- NOTE | 2020-10-28 23:14 | PC.NURSE ---
Report given to Kandice BOLDEN. [id number]
[2020-10-28 23:29] VITALS: BP 100/68; PULSE 100; RESP 22; TEMP 36.6; O2SAT 98
[2020-10-28 23:45] VITALS: BMI 49.6
[2020-10-29] VITALS (18 sets, daily range): BP systolic 102–114; BP diastolic 60–77; PULSE 71–100; RESP 16–18; TEMP 36.2–36.7; O2SAT 95–100
--- NOTE | 2020-10-29 00:22 | PM.HP ---
Providers/Chief Complaint Admitting Physician: Gladys Salcedo MD Primary Care Provider: Tashi Acosta MD Chief Complaint: DIFFICULTY BREATHING History of Present Illness Yaquelin Loera is a 65 year old female with severe restrictive lung disease, chronic hypercapnic respiratory failure, obesity hypoventilation syndrome, small airways disease secondary to smoking, on 2lpm home 02 presenting today with 4-5 days of increased cough, sputum production, which is blood tinged, shortness of breath, increased 02 requirement over baseline at 6lpm today. No fever. Pleuritic chest pain+. CT chest with RUL consolidation today. No current prednisone use. Vaccinated for COVID 19. Review of Systems General: Reports: 10 or more systems reviewed and unremarkable except in HPI and below Const: Denies: fever(s), chills or body aches Eyes: Denies: change in vision, blurry vision or photophobia ENMT: Reports: hoarseness; Denies: throat pain, enlarged tonsils, odynophagia or nasal congestion Card: Denies: chest pain, palpitations, irregular heart rhythm, edema, swelling of feet/ankles, lightheadedness, pre-syncope, dyspnea on exertion or orthopnea Resp: Reports: dyspnea, productive cough, wheezing and change in phlegm color; Denies: non-productive cough, stridor, pain on inspiration, hemoptysis or chest congestion GI: Denies: abdominal pain, nausea, vomiting, hematemesis, coffee ground emesis, dysphagia, heartburn, diarrhea, constipation, GI cramping, change in stool character, hematochezia or melena : Denies: flank pain, difficulty voiding, dysuria, urinary frequency, urinary urgency, urinary hesitancy or hematuria Musc: Denies: neck pain, back pain, extremity pain, joint swelling, joint warmth or deformity Neuro: Denies: headache(s), numbness in extremities, weakness in extremities, sensory changes, difficulty walking, frequent falls, dizziness, vertigo, behavioral changes, Slurred speech present or seizure-like activity Psych: Denies: anxiety, depression, suicidal ideation or homicidal ideation Endo: Denies: polyuria, polydipsia, tired all the time, cold intolerance or hot flashes Maximo/Lymph: Denies: easy bruising or easy bleeding Medications/Allergies Home Medications Medication Instructions Recorded Confirmed Last Taken Type Daliresp 500 mcg PO DAILY@0705/16/19 10/28/20 10/28/20 History Fleet Enema 118 ml ME DAILY PRN 05/16/19 10/28/20 Unknown History Flonase Sensimist 1 spray INTRANASAL DAILY@0705/16/19 10/28/20 10/28/20 History Januvia 100 mg PO DAILY@0705/16/19 10/28/20 10/28/20 History Ozempic See Rx Instructions .ROUTE .[facility] 05/16/19 10/28/20 10/25/20 History Trelegy Ellipta 1 inh INHALATION DAILY 05/16/19 10/28/20 10/28/20 History Tresiba FlexTouch U-100 10 unit SUBCUT BEDTIME@199905/16/19 10/28/20 10/27/20 History acetaminophen [Tylenol Extra 1,000 mg PO Q4H PRN 05/16/19 10/28/20 05/15/19 18:26 History Strength] bisacodyl [Dulcolax (bisacodyl)] 10 mg PO DAILY PRN 05/16/19 10/28/20 Unknown History bisacodyl [Dulcolax (bisacodyl)] 10 mg ME DAILY PRN 05/16/19 10/28/20 Unknown History carbamide peroxide [Debrox] See Rx Instructions .ROUTE .[facility] 05/16/19 10/28/20 06/03/19 History cholecalciferol (vitamin D3) 25 mcg PO DAILY@0705/16/19 10/28/20 10/28/20 History [Vitamin D3] gabapentin 300 mg PO BID@699,199905/16/19 10/28/20 10/28/20 History hydroxyzine pamoate [Vistaril] See Rx Instructions .ROUTE .[facility] 05/16/19 10/28/20 05/15/19 20:00 History insulin aspart U-100 [Novolog See Rx Instructions .ROUTE .[facility] 05/16/19 10/28/20 06/03/19 History U-100 Insulin aspart] ipratropium-albuterol 3 ml INHALATION Q4H PRN 05/16/19 10/28/20 Unknown History magnesium hydroxide [Milk of See Rx Instructions .ROUTE .[facility] 05/16/19 10/28/20 Unknown History Magnesia] melatonin 5 mg PO BEDTIME@199905/16/19 10/28/20 10/27/20 History rosuvastatin 40 mg PO BEDTIME@199905/16/19 10/28/20 10/27/20 History furosemide [Lasix] 40 mg PO DAILY@0700 05/31/19 10/28/20 10/28/20 History pioglitazone [Actos] 7.5 mg PO DAILY@0705/31/19 10/28/20 10/28/20 History sodium chloride [Saline Nasal] See Rx Instructions .ROUTE .[facility] 05/31/19 10/28/20 10/28/20 History venlafaxine 75 mg PO DAILY@69905/31/19 10/28/20 10/28/20 History levetiracetam See Rx Instructions .ROUTE .[facility] 06/03/19 10/28/20 10/28/20 History Cough Drops See Rx Instructions .ROUTE .[facility] 01/30/20 10/28/20 Unknown History naproxen [Naprosyn] 500 mg PO BID PRN #20 tab 01/30/20 10/28/20 Unknown Rx ondansetron 4 mg PO Q6H PRN #14 tab 01/30/20 10/28/20 10/28/20 06:49 Rx mirabegron [Myrbetriq] 25 mg PO DAILY@69910/28/20 10/28/20 10/28/20 History promethazine-DM 5 ml PO Q6H PRN 10/28/20 10/28/20 Unknown History Allergies Allergy/AdvReac Type Severity Reaction Status Date / Time metformin Allergy ADR-Dry Verified 10/20/20 14:24 Mucus Membranes Penicillins Allergy ALGY-Anaphy Verified 10/20/20 14:24 laxis Sulfa (Sulfonamide Allergy ALGY-Anaphy Verified 10/20/20 14:24 Antibiotics) laxis PFSH Acute PFSH: Medical History (Updated 10/29/20 @ 03:38 by Gladys Salcedo MD) Benign essential hypertension with target blood pressure below 140/90 COPD (chronic obstructive pulmonary disease) Depression Diastolic congestive heart failure Hyperlipidemia Hypertension Moderate to severe mitral regurgitation Nonischemic cardiomyopathy Obesity Obstructive sleep apnea Pulmonary hypertension Seizure disorder Tricuspid regurgitation Type 2 diabetes mellitus Surgical History H/O mitral valve replacement History of Ulnar nerve compression Family History Brother CAD (coronary artery disease) Sister CAD (coronary artery disease) Grandmother Diabetes Mother Stroke Denies family history of Clotting disorder Dementia Chronic kidney disease (CKD) Suicide Anesthesia complication Bleeding disorder Lung disease Cancer Social History Smoking and tobacco status: current every day smoker cigarettes Years cigarettes smoked: 30 [ Other cigarette details: Hx of 1PPD x 30 Years ] Second hand smoke exposure: Yes Smoking risk assessment/counseling performed?: Yes Alcohol intake: never Counseling given: No Counseling given: No Caregiver/support person: Yes Lives independently: No Housing: Assisted Living Facility Marital status: / Current occupational status: retired and disabled History of recent travel: No Current gender identity: Female Vitals/I&O/Wt Last Vital Signs Temp 98 F 10/28/20 23:29 Pulse 100 10/28/20 23:29 Resp 22 H 10/28/20 23:29 BP 100/68 10/28/20 23:29 Pulse Ox 98 10/28/20 23:29 10/28/20 10/28/20 10/29/20 14:59 22:59 06:59 Intake Total 100 / 100 Balance 100 / 100 Weight last 48 hrs Weight 100.289 kg Weight 95.254 kg Physical Exam Narrative: EXAM NARRATIVE: General: mild tachypnea, AO x3 HEENT: PERRLA, pupils bilaterally equal and reactive, pallors not present Chest: reduced air entry RUL, bronchial breath sounds, B/L scattered wheezing. CVS: S1-S2 regular, no murmurs, no tachycardia, no gallops, no rubs Abdomen: Soft, nontender, no organomegaly, bowel sounds present Neuro: No focal deficits, no facial deformity, AO x3, power 5/5 in all limbs Extremities: no edema, cyanosis, clubbing. Data : 10/28/20 16:55 10/28/20 16:55 Attestation for Other Data: I personally reviewed and interpreted the following: Other data: Laboratory Results WBC 28.6 10^3/uL (4.0-10.0) H 10/28/20 16:55 RBC 5.33 10^6/uL (4.1-5.3) H 10/28/20 16:55 Hgb 14.9 g/dL (11.5-15.3) 10/28/20 16:55 Hct 47.5 % (37.0-47.0) H 10/28/20 16:55 MCV 89.1 fL (81-99) 10/28/20 16:55 MCH 28.0 pg (28.0-34.0) 10/28/20 16:55 MCHC 31.4 g/dL (30.0-36.0) 10/28/20 16:55 RDW 14.1 % (12.1-15.1) 10/28/20 16:55 Plt Count 223 10^3/cmm (130-400) 10/28/20 16:55 MPV 10.9 fL (7.4-10.4) H 10/28/20 16:55 Neut % (Auto) 86.2 % 10/28/20 16:55 Lymph % (Auto) 3.6 % 10/28/20 16:55 [place] % (Auto) 5.4 % 10/28/20 16:55 Eos % (Auto) 0.0 % 10/28/20 16:55 Baso % (Auto) 0.6 % 10/28/20 16:55 Neut # (Auto) 24.64 10^3/uL (1.8-7.7) H 10/28/20 16:55 Lymph # (Auto) 1.0 10^3/uL (0.8-4.8) 10/28/20 16:55 [place] # (Auto) 1.6 10^3/uL (0.2-0.9) H 10/28/20 16:55 Eos # (Auto) 0.0 10^3/uL (0.0-0.8) 10/28/20 16:55 Baso # (Auto) 0.2 10^3/uL (0.0-0.1) H 10/28/20 16:55 Nucleated RBC % (auto) 0 % 10/28/20 16:55 Nucleated RBCs # 0.0 /100WBC 10/28/20 16:55 Fibrinogen 1215 mg/dL (174-498) H 10/28/20 16:55 D-Dimer 4.15 ug/mIFEU (0-0.59) H 10/28/20 16:55 Specimen Type Arterial 10/28/20 17:58 Sample Site Brachial, left 10/28/20 17:58 ABG pH 7.42 (7.35-7.45) 10/28/20 17:58 ABG pCO2 39.8 mmHg (35-45) 10/28/20 17:58 ABG pO2 76.1 mmHg (80.0-100.0) L 10/28/20 17:58 ABG HCO3 25.8 mmol/L (22-26) 10/28/20 17:58 ABG Base Excess 1.3 mmol/L (-2.0-2.0) 10/28/20 17:58 Miguel Test Pos 10/28/20 17:58 Hematocrit 44.0 % (37-47) 10/28/20 17:58 O2 Delivery Device Nc 10/28/20 17:58 O2 Liters/Min 6.0 % 10/28/20 17:58 FiO2 44.0 % 10/28/20 17:58 Residential Leasing Agent ID [place] 10/28/20 17:58 Sodium 136 mmol/L (136-145) 10/28/20 16:55 Potassium 4.2 mmol/L (3.5-5.1) 10/28/20 16:55 Chloride 95 mmol/L (98-107) L 10/28/20 16:55 Carbon Dioxide 26 mmol/L (22-29) 10/28/20 16:55 Anion Gap 19.2 (5-19) H 10/28/20 16:55 BUN 25 mg/dL (8-23) H 10/28/20 16:55 Creatinine 1.2 mg/dL (0.5-0.9) H 10/28/20 16:55 GFR Calculation 44.8 mL/min (90-130) L 10/28/20 16:55 Glucose 154 mg/dL (65-115) H 10/28/20 16:55 Calculated Osmolality 289 mOsm/kg (285-295) 10/28/20 16:55 Lactic Acid 2.2 mmol/L (0.5-2.2) 10/28/20 16:55 Calcium 8.4 mg/dL (8.5-10.5) L 10/28/20 16:55 Total Bilirubin 0.9 mg/dL (0.15-1.2) 10/28/20 16:55 AST 14 U/L (0-32) 10/28/20 16:55 ALT 11 U/L (0-33) 10/28/20 16:55 Alkaline Phosphatase 89 IU/L (35-105) 10/28/20 16:55 Troponin T Baseline 21 ng/L (0-10) H 10/28/20 16:55 Troponin T 120 Minute 19.04 ng/L (0-10) H 10/28/20 18:51 Delta Troponin T -1.96 ABS# (0-10) L 10/28/20 18:51 C-Reactive Protein 499.8 mg/L (0.0-4.9) H 10/28/20 16:55 NT-Pro-B Natriuret Pep 4206 pg/mL (0-125) H 10/28/20 16:55 Total Protein 6.5 g/dL (6.6-8.7) L 10/28/20 16:55 Albumin 3.8 g/dL (3.5-5.2) 10/28/20 16:55 Globulin 2.7 g/dL (1.3-4.6) 10/28/20 16:55 Procalcitonin 7.95 ng/mL (0-0.5) H 10/28/20 16:55 SARS-CoV-2 Ag (Rapid) Negative (Negative) 10/28/20 17:02 Impressions Chest X-Ray 10/28/20 17:08 IMPRESSION: 1. Large right upper lobe airspace lesion. Pneumonia favored. 2. Radiographic follow-up is indicated. Chest CTA 10/28/20 19:09 IMPRESSION: 1. Right upper lobe bronchopneumonia is favored. 2. Negative for pulmonary embolism. 3. Radiographic follow-up is recommended after clinical treatment to confirm resolution. Radiation Dose CTDIVOL = (mGy): DLP = 537.13 (mGy-cm) A&P Assessment and plan (1) Sepsis: meets criteria with leukocytosis, tachycardia, DOUGIE and acute on chronic hypoxic resp failure related to RUL pneumonia Status: Acute Qualifiers: Acute respiratory failure type: with hypoxia Sepsis acute organ dysfunction status: with acute organ dysfunction Sepsis type: sepsis due to unspecified organism Severe sepsis acute organ dysfunction type: acute respiratory failure Severe sepsis shock status: without septic shock Qualified Code(s): A41.9 - Sepsis, unspecified organism; R65.20 - Severe sepsis without septic shock; J96.01 - Acute respiratory failure with hypoxia (2) Right upper lobe pneumonia: start empiric abx treatment with Cefepime and Vancomycin , azithromycin for atypical coverage blood cx urine bacterial and legionella antigen, sputum cx , MRSA screen, covid PCR, sputum culture duoneb and budesonide inhalation prn morphine for pleuritic chest pain Status: Acute Qualifiers: Pneumonia type: due to unspecified organism Qualified Code(s): J18.9 - Pneumonia, unspecified organism (3) Acute respiratory failure: acute on chronic resp failure supplemental 02 to keep sat 90-92% Status: Acute Qualifiers: Respiratory failure complication: hypoxia Qualified Code(s): J96.01 - Acute respiratory failure with hypoxia (4) DOUGIE (acute kidney injury): cr. 1.2, avoid fluid bolus or maintainnece fluids for now given h/o cardiomyopathy. Monitor cr closely, encourage po intake Status: Acute Attestations Medical Necessity Statement*: >2midnight anticipated for management of community acquired pneumonia, sepsis Coding Level of Care Code Acute Hotel Office Manager for [facility] F[facility] Diagnoses Sepsis A41.9; R65.20; J96.01 Acute respiratory failure type: with hypoxia Sepsis acute organ dysfunction status: with acute organ dysfunction Sepsis type: sepsis due to unspecified organism Severe sepsis acute organ dysfunction type: acute respiratory failure Severe sepsis shock status: without septic shock Right upper lobe pneumonia J18.9 Pneumonia type: due to unspecified organism Acute respiratory failure J96.01 Respiratory failure complication: hypoxia DOUGIE (acute kidney injury) N17.9
--- NOTE | 2020-10-29 01:55 | PC.PHAR ---
Pharmacokinetic dosing service Date: 10/29/2020 Time: 199 Objective: Patient: Yaquelin Loera Floor: 267-1 Age: 65 yo Serum creatinine: 1.2 mg/dL Height: 56.0 Inches Weight (kg): 100.289 Diagnosis: Relevant medical/social history: Cultures and sensitivities: Other labs: Assessment: IBW (kg): 42.47 Dosing wt(kg): 100.289 Estimated Creatinine clearance (ml/min): 30.5 CRCL method: Cockcroft and Gault using ibw(default). Drug selected: Vancomycin Loading dose (mg): 0 Vd (liters): 90.3 (factor used: 0.9 L/kg) Saeid (hr-1): 0.030 Half life (hrs): 23.10 Recommended dose: 1500 mg Interval: 24 hrs Infusion time (hrs): 1.5 Predicted peak (mcg/mL): 31.6 Predicted trough (mcg/mL): 16.09 Total body weight is being used for vancomycin dosing. Renal function is stable [ ] /unstable [ ] Recommendations: Give Vancomycin 1500 mg q 24 hrs with an expected Cpeak of 31.6 mcg/ml and an expected Ctrough of 16.09 mcg/ml Renal dosing of other antibiotics (review renal dosing of other medications and list guidelines here): Thank you for the consult, will continue to follow. Signature: Yolie Howard [facility]
[2020-10-29] MEDS: morphine 4 mg/mL SDV 1 mL 2 MG IVP ×4 (02:52→20:59)
[2020-10-29] MEDS: enoxaparin 40 mg/0.4 mL Syringe SUBCUT (02:54)
[2020-10-29] MEDS: vancomycin 1,500 MG/300 ML PIGGYBACK 200 MG IV (02:57)
[2020-10-29] MEDS: ipratropium-albuterol 3 mL Neb INHALATION ×4 (04:35→21:28)
[2020-10-29] MEDS: venlafaxine ER (24HR) 75 mg Capsule PO (05:50)
[2020-10-29] MEDS: acetaminophen 325 mg Tablet 650 MG PO (05:50)
[2020-10-29] MEDS: roflumilast 500 mcg Tablet PO (05:51)
[2020-10-29] MEDS: levETIRAcetam 500 mg Tablet PO (05:51)
[2020-10-29] MEDS: gabapentin 300 mg Capsule PO ×2 (05:51→20:57)
[2020-10-29] MEDS: FUROsemide 40 mg Tablet PO (05:51)
[2020-10-29 06:45] LABS: Glucose Point of Care 129 mg/dL (70-110)
[2020-10-29] MEDS: azithromycin 250 mg Tablet 500 MG PO (08:17)
[2020-10-29 08:45] LABS: Basophils # 0.1 10^3/uL (0.0-0.1); Basophils % 0.4 %; Eosinophils # 0.1 10^3/uL (0.0-0.8); Eosinophils % 0.2 %; Hemoglobin 13.3 g/dL (11.5-15.3); Lymphocytes # 0.9 10^3/uL (0.8-4.8); Mean Corpuscular HGB Conc 31.7 g/dL (30.0-36.0); Mean Corpuscular Hemoglobin 27.9 pg (28.0-34.0); Mean Corpuscular Volume 88.1 fl (81-99); Mean Platelet Volume 10.7 fL (7.4-10.4); Monocytes # 1.2 10^3/uL (0.2-0.9); Monocytes % 5.4 %; Neutrophils # 19.08 10^3/uL (1.8-7.7); Neutrophils % 85.8 %; Nucleated Red Blood Cells % 0 %; Platelet Count 223 10^3/cmm (130-400); Red Blood Count 4.77 10^6/uL (4.1-5.3); Red Cell Distribution Width 14.2 % (12.1-15.1); White Blood Count 22.2 10^3/uL (4.0-10.0)
[2020-10-29] MEDS: pantoprazole DR 40 mg Tablet PO (09:06)
[2020-10-29] MEDS: budesonide 0.5 mg/2 mL Neb INHALATION ×2 (09:29→21:28)
[2020-10-29 10:44] LABS: Glucose Point of Care 166 mg/dL (70-110)
--- NOTE | 2020-10-29 10:55 | PC.CHAP ---
Pastoral Care Encounter/Spiritual Assessment Type of Contact [] Declined apprentice plumber visit [] Patient/Family/Request visit [] Outpatient visit [] Follow-up visit [] Physician referral [] Code/Alert [] Routine visit [] Staff referral [] Actively dying [] Patient sleeping [] Family support [] [] Out of room [] Palliative care [] [] Receiving care in room [] Pre-surgical visit [] Trauma [] Long length of stay [] ICU visit [xx] Other: Isolation Relational/Emotional Strength [] Patient feels connected with others/family/visitors/staff [] Distress [] Loneliness/isolation [] Abandonment Spirituality of Patient [] Person of [place] [] Attends Mormonism of their [place] [] Believes in Prayer [] Reads Bible or Amish materials [] There are Spiritual issues to be addressed Electronic Tech Interventions [] Prayer [] Active listening [] Non-anxious presence [] Spiritual/emotional support [] Crisis/trauma care [] Spiritual counseling [] Bereavement support [] Provided bereavement packet [] Provided Bible/devotional materials [] Provided toy/stuffed animal, coloring book to patient or family member [] Provided Communion [] Anointing/[place] [] Salvation [] Completed spiritual assessment [] Other: Impact on Illness or Injury [] Angry [] Fearful [] Anxious [] Often cries [] Exhaustion [] Unable to work [] Unable to attend christianity [] Unable to walk/stand [] Unable to read [] Unable to drive [] Unable to eat/drink [] Unable to sleep [] Unable to be with family [] Patient intubated [] Other: Summary Time spent with patient
[2020-10-29 17:51] LABS: Glucose Point of Care 124 mg/dL (70-110)
[2020-10-29] MEDS: levETIRAcetam 500 mg Tablet 1000 MG PO (17:55)
--- NOTE | 2020-10-29 18:39 | PM.PN ---
Subjective Subjective: Interval history: Leukocytosis improving she is afebrile, currently saturating well on 2 L nasal cannula Patient is endorsing feeling the same Requested PT evaluation Continue antibiotic regimen for now MRSA nares negative, DC vancomycin Urine antigens negative Vitals/I&O/Wt Last Vital Signs Temp 97.1 F L 10/29/20 15:49 Pulse 92 10/29/20 15:49 Resp 18 10/29/20 15:49 BP 107/66 10/29/20 15:49 Pulse Ox 97 10/29/20 15:49 10/29/20 10/29/20 10/29/20 06:59 14:59 22:59 Intake Total 980 / 980 120 / 120 Output Total 320 / 320 Balance 660 / 660 120 / 120 Weight last 48 hrs Weight 100.289 kg Weight 95.254 kg Physical Exam Narrative: EXAM NARRATIVE: Patient was seen and examined this morning, she was laying in semi-Baker position saturating well on 3 to nasal cannula Afebrile S1, S2 distended abdomen nontender no signs of peritonitis Does have mild signs of fluid overload EOMI, PERRLA No strokelike symptoms No neurological deficits Bilateral breath sounds with diminished at the bases, rhonchi noticed bilaterally, Moist mucous membranes No joint swelling Data : 10/29/20 08:29 10/28/20 16:55 Micro: Microbiology 10/29/20 02:50 MRSA Culture - Final Nose 10/29/20 02:52 Legionella Urinary Antigen - Final Urine,Voided Bacterial Antigens - Final A&P Assessment and plan (1) Sepsis: Status: Acute Qualifiers: Sepsis type: sepsis due to unspecified organism Sepsis acute organ dysfunction status: with acute organ dysfunction Severe sepsis acute organ dysfunction type: acute respiratory failure Acute respiratory failure type: with hypoxia Severe sepsis shock status: without septic shock Qualified Code(s): A41.9 - Sepsis, unspecified organism; R65.20 - Severe sepsis without septic shock; J96.01 - Acute respiratory failure with hypoxia (2) Acute respiratory failure: Status: Acute Qualifiers: Respiratory failure complication: hypoxia Qualified Code(s): J96.01 - Acute respiratory failure with hypoxia (3) DOUGIE (acute kidney injury): Status: Acute (4) Right upper lobe pneumonia: Status: Acute Qualifiers: Pneumonia type: due to unspecified organism Qualified Code(s): J18.9 - Pneumonia, unspecified organism (5) Obstructive sleep apnea: Status: Acute (6) Pulmonary hypertension: Status: Acute (7) Restrictive lung disease: Status: Acute (8) Chronic respiratory failure with hypoxia and hypercapnia: Status: Acute (9) Obesity hypoventilation syndrome: Status: Acute Additional A&P Information Right upper lobe persistent pneumonia Concern for malignancy, paratracheal lymphadenopathy detected, CT scan from 10/22 also showed right upper lobe pneumonia with irregular nodule 4.7 x 2.2 cm Nares MRSA negative discontinue vancomycin Continue cefepime for now She will need bronchoscopy for definitive diagnosis Currently saturating well on 3 Lnasal cannula Sepsis present on admission Procalcitonin 7 Acute on chronic hypoxic respiratory failure Patient is morbidly obese does have history of obesity hypoventilation, Currently saturating well on 3 L nasal cannula In case of worsening of her respiratory status can use BiPAP overnight Acute kidney injury Clinical looks fluid overloaded BNP 4000, Judicious use of fluids Would use diuretics for now and monitor urine output and correlate with creatinine Full code Cardiac diet DVT prophylaxis, Lovenox She will go back to assisted living once stable Attestations Medical Necessity Statement*: Continue medical management will need evaluation for persistent pneumonia Time Spent in Patient Care: less than 15 minutes Coding Level of Care Code Acute Electrical Design Technologist for [facility] Fw Diagnoses Sepsis A41.9; R65.20; J96.01 Sepsis type: sepsis due to unspecified organism Sepsis acute organ dysfunction status: with acute organ dysfunction Severe sepsis acute organ dysfunction type: acute respiratory failure Acute respiratory failure type: with hypoxia Severe sepsis shock status: without septic shock Acute respiratory failure J96.01 Respiratory failure complication: hypoxia DOUGIE (acute kidney injury) N17.9 Right upper lobe pneumonia J18.9 Pneumonia type: due to unspecified organism Obstructive sleep apnea G47.33 Pulmonary hypertension I27.20 Restrictive lung disease J98.4 Chronic respiratory failure with hypoxia and hypercapnia J96.11; J96.12 Obesity hypoventilation syndrome E66.2
[2020-10-29] MEDS: atorvastatin 40 mg Tablet 80 MG PO (20:56)
[2020-10-29 21:42] LABS: Glucose Point of Care 135 mg/dL (70-110)
[2020-10-30] VITALS (19 sets, daily range): BP systolic 101–114; BP diastolic 64–74; PULSE 85–98; RESP 16–20; TEMP 36.4–36.9; O2SAT 91–99
[2020-10-30] MEDS: morphine 4 mg/mL SDV 1 mL 2 MG IVP ×4 (02:26→17:59)
[2020-10-30] MEDS: enoxaparin 40 mg/0.4 mL Syringe SUBCUT (02:26)
[2020-10-30] MEDS: ipratropium-albuterol 3 mL Neb INHALATION ×4 (03:53→20:22)
[2020-10-30] MEDS: roflumilast 500 mcg Tablet PO (06:11)
[2020-10-30] MEDS: gabapentin 300 mg Capsule PO ×2 (06:11→20:59)
[2020-10-30] MEDS: levETIRAcetam 500 mg Tablet PO (06:11)
[2020-10-30 07:05] LABS: Glucose Point of Care 130 mg/dL (70-110)
[2020-10-30] MEDS: bumetanide 0.25 mg/mL SDV 4 mL 1 MG IV (07:29)
[2020-10-30] MEDS: azithromycin 250 mg Tablet 500 MG PO (07:29)
[2020-10-30] MEDS: pantoprazole DR 40 mg Tablet PO (07:30)
[2020-10-30 07:53] LABS: Alanine Aminotransferase 9 U/L (0-33); Albumin Level 2.9 g/dL (3.5-5.2); Alkaline Phosphatase 161 IU/L (35-105); Aspartate Amino Transferase 18 U/L (0-32); Blood Urea Nitrogen 28 mg/dL (8-23); Calcium 8.1 mg/dL (8.5-10.5); Carbon Dioxide 26 mmol/L (22-29); Chloride 98 mmol/L (98-107); Globulin 3.6 g/dL (1.3-4.6); Glomerular Filtration Rate 49.5 mL/min (90-130); Glucose 138 mg/dL (65-115); Osmolality Calculated 290 mOsm/kg (285-295); Sodium 136 mmol/L (136-145); Total Bilirubin 0.4 mg/dL (0.15-1.2); Total Protein 6.5 g/dL (6.6-8.7)
[2020-10-30 07:58] LABS: Anion Gap 16.1 (5-19); Potassium 4.1 mmol/L (3.5-5.1)
[2020-10-30] MEDS: budesonide 0.5 mg/2 mL Neb INHALATION (08:37)
--- NOTE | 2020-10-30 11:40 | P.PN_ITS ---
Subjective Subjective: Interval history: Patient was seen and examined this morning, she is saturating well on 2 L nasal cannula, complaining of pleuritic pain right- sided No overnight events, Covid PCR is pending CT scan is showing dense right upper lobe infiltrate Sepsis resolved Vitals/I&O/Wt Last Vital Signs Temp 97.6 F 10/30/20 08:00 Pulse 90 10/30/20 08:44 Resp 18 10/30/20 08:37 BP 110/65 10/30/20 08:00 Pulse Ox 97 10/30/20 08:37 10/29/20 10/30/20 10/30/20 22:59 06:59 14:59 Intake Total 460 / 580 100 / 680 Output Total 700 / 700 250 / 250 Balance 460 / 580 -600 / -20 -250 / -250 Weight last 48 hrs Weight 100.289 kg Weight 95.254 kg Physical Exam Narrative: EXAM NARRATIVE: Patient was seen in the room along with the nurse Saturating well on 2 L nasal cannula Hemodynamically stable Complaining of right-sided pleuritic chest pain Bilateral breath sounds diminished no active wheezing or crackles Distended abdomen soft nontender bowel sounds sluggish Lower extremity no edema Central obesity Data : 10/29/20 08:29 10/30/20 06:48 Micro: Microbiology 10/29/20 19:10 Blood Culture - Preliminary Blood SPECIMEN COLLECTED 10/29/20 19:05 Blood Culture - Preliminary Blood SPECIMEN COLLECTED 10/29/20 02:50 MRSA Culture - Final Nose 10/29/20 02:52 Legionella Urinary Antigen - Final Urine,Voided Bacterial Antigens - Final A&P Assessment and plan (1) DOUGIE (acute kidney injury): Status: Acute (2) Sepsis: Status: Acute Qualifiers: Sepsis type: sepsis due to unspecified organism Sepsis acute organ dysfunction status: with acute organ dysfunction Severe sepsis acute organ dysfunction type: acute respiratory failure Acute respiratory failure type: with hypoxia Severe sepsis shock status: without septic shock Qualified Code(s): A41.9 - Sepsis, unspecified organism; R65.20 - Severe sepsis without septic shock; J96.01 - Acute respiratory failure with hypoxia (3) Acute respiratory failure: Status: Acute Qualifiers: Respiratory failure complication: hypoxia Qualified Code(s): J96.01 - Acute respiratory failure with hypoxia (4) Right upper lobe pneumonia: Status: Acute Qualifiers: Pneumonia type: due to unspecified organism Qualified Code(s): J18.9 - Pneumonia, unspecified organism (5) Sleep apnea: Status: Acute (6) Obesity hypoventilation syndrome: Status: Acute (7) Nonischemic cardiomyopathy: Status: Acute Additional A&P Information Sepsis related to persistent right-sided pneumonia Sepsis has resolved She will need outpatient bronchoscopy with BAL, rule out malignancy She has seen Dr. Aggarwal As this point she is not requiring higher oxygen, she is saturating well on 2 L sepsis has resolved no acute indication for inpatient bronchoscopy at this point Vancomycin discontinued after negative MRSA currently on cefepime and azithromycin, afebrile leukocytosis improved Acute on chronic hypoxic respite failure she saturating well on 2 L which is her home requirement No acute worsening Patient complaining of pleuritic chest pain this likely is related to her underlying pneumonia However cancer has not been ruled out Acute kidney injury Secondary to prerenal CHF exacerbation Improving with diuresis Full code Cardiac diet Lovenox DVT prophylaxis Discharge to assisted living likely on Sunday Attestations Medical Necessity Statement*: Discharge back to assisted living on Sunday Time Spent in Patient Care: 16 - 35 minutes Coding Level of Care Code Acute Director Drug Safety for [facility] Fwd Diagnoses DOUGIE (acute kidney injury) N17.9 Sepsis A41.9; R65.20; J96.01 Sepsis type: sepsis due to unspecified organism Sepsis acute organ dysfunction status: with acute organ dysfunction Severe sepsis acute organ dysfunction type: acute respiratory failure Acute respiratory failure type: with hypoxia Severe sepsis shock status: without septic shock Acute respiratory failure J96.01 Respiratory failure complication: hypoxia Right upper lobe pneumonia J18.9 Pneumonia type: due to unspecified organism Sleep apnea G47.30 Obesity hypoventilation syndrome E66.2 Nonischemic cardiomyopathy I42.8
[2020-10-30 12:10] LABS: Glucose Point of Care 125 mg/dL (70-110)
[2020-10-30 17:40] LABS: Glucose Point of Care 169 mg/dL (70-110)
[2020-10-30] MEDS: levETIRAcetam 500 mg Tablet 1000 MG PO (17:59)
[2020-10-30] MEDS: atorvastatin 40 mg Tablet 80 MG PO (20:59)
[2020-10-30 22:46] LABS: Glucose Point of Care 124 mg/dL (70-110)
[2020-10-30 23:07] LABS: Quest SARS-CoV-2 RNA NOT DETECTED (NOT DETECTED)
[2020-10-31] VITALS (15 sets, daily range): BP systolic 93–127; BP diastolic 62–75; PULSE 62–88; RESP 16–20; TEMP 36.4–36.7; O2SAT 94–100
[2020-10-31] MEDS: enoxaparin 40 mg/0.4 mL Syringe SUBCUT (00:26)
[2020-10-31] MEDS: morphine 4 mg/mL SDV 1 mL 2 MG IVP ×5 (00:31→21:54)
[2020-10-31] MEDS: levETIRAcetam 500 mg Tablet PO (06:26)
[2020-10-31] MEDS: roflumilast 500 mcg Tablet PO (06:26)
[2020-10-31] MEDS: gabapentin 300 mg Capsule PO ×2 (06:26→20:35)
[2020-10-31 06:47] LABS: Glucose Point of Care 172 mg/dL (70-110)
[2020-10-31 07:46] LABS: Basophils # 0.1 10^3/uL (0.0-0.1); Basophils % 0.5 %; Eosinophils # 0.2 10^3/uL (0.0-0.8); Eosinophils % 1.4 %; Hematocrit 40.6 % (37.0-47.0); Hemoglobin 12.5 g/dL (11.5-15.3); Lymphocytes # 0.9 10^3/uL (0.8-4.8); Mean Corpuscular HGB Conc 30.8 g/dL (30.0-36.0); Mean Corpuscular Hemoglobin 27.7 pg (28.0-34.0); Mean Corpuscular Volume 89.8 fl (81-99); Mean Platelet Volume 10.9 fL (7.4-10.4); Monocytes % 7.2 %; Neutrophils # 10.93 10^3/uL (1.8-7.7); Neutrophils % 82.8 %; Nucleated Red Blood Cells % 0 %; Platelet Count 191 10^3/cmm (130-400); Red Blood Count 4.52 10^6/uL (4.1-5.3); Red Cell Distribution Width 14.3 % (12.1-15.1); White Blood Count 13.2 10^3/uL (4.0-10.0)
[2020-10-31 08:08] LABS: Anion Gap 13.7 (5-19); Blood Urea Nitrogen 26 mg/dL (8-23); Calcium 8.6 mg/dL (8.5-10.5); Carbon Dioxide 26 mmol/L (22-29); Chloride 96 mmol/L (98-107); Glomerular Filtration Rate 55.3 mL/min (90-130); Glucose 174 mg/dL (65-115); Osmolality Calculated 283 mOsm/kg (285-295); Potassium 3.7 mmol/L (3.5-5.1); Sodium 132 mmol/L (136-145)
[2020-10-31] MEDS: ipratropium-albuterol 3 mL Neb INHALATION ×3 (09:03→20:00)
[2020-10-31] MEDS: sennosides-docusate Tablet 1 TAB PO (09:23)
[2020-10-31] MEDS: azithromycin 250 mg Tablet 500 MG PO (09:23)
[2020-10-31] MEDS: bumetanide 0.25 mg/mL SDV 4 mL 1 MG IV (09:23)
[2020-10-31] MEDS: acetaminophen 325 mg Tablet 650 MG PO (09:23)
[2020-10-31] MEDS: pantoprazole DR 40 mg Tablet PO (09:24)
[2020-10-31 11:03] LABS: Glucose Point of Care 181 mg/dL (70-110)
--- NOTE | 2020-10-31 13:06 | P.PN_ITS ---
Subjective Subjective: Interval history: Discussed with the patient that we probably will need to do a bronchoalveolar lavage to rule out malignancy however she does not want any intervention at this point and would like to follow-up with Dr. Aggarwal outpatient before making that decision Her leukocytosis improving she has stayed afebrile she is currently on cefepime and azithromycin Cultures negative to date urine antigens negative She is endorsing productive sputum mucoid yellow, requested sputum culture Vitals/I&O/Wt Last Vital Signs Temp 98 F 10/31/20 11:57 Pulse 81 10/31/20 11:57 Resp 16 10/31/20 11:57 BP 106/62 10/31/20 11:57 Pulse Ox 97 10/31/20 11:57 10/30/20 10/31/20 10/31/20 22:59 06:59 14:59 Intake Total 340 / 580 360 / 940 460 / 460 Output Total 200 / 450 480 / 930 Balance 140 / 130 -120 / 10 460 / 460 Physical Exam Narrative: EXAM NARRATIVE: Patient was laying supine comfortably however still complaining of pleuritic right-sided chest pain S1, S2 Distended abdomen central obesity Active wheezing bilaterally however no acute respiratory distress no use of respiratory sensory muscles he saturating well on 2 L nasal cannula No edema noted No signs of cyanosis or gangrene No neurological deficit Data : 10/31/20 06:41 10/31/20 06:41 Micro: Microbiology 10/29/20 19:05 Blood Culture - Preliminary Blood NEGATIVE TO DATE 10/29/20 19:10 Blood Culture - Preliminary Blood NEGATIVE TO DATE A&P Assessment and plan (1) Sepsis: Status: Acute Qualifiers: Sepsis type: sepsis due to unspecified organism Sepsis acute organ dysfunction status: with acute organ dysfunction Severe sepsis acute organ dysfunction type: acute respiratory failure Acute respiratory failure type: with hypoxia Severe sepsis shock status: without septic shock Qualified Code(s): A41.9 - Sepsis, unspecified organism; R65.20 - Severe sepsis without septic shock; J96.01 - Acute respiratory failure with hypoxia (2) DOUGIE (acute kidney injury): Status: Acute (3) Acute respiratory failure: Status: Acute Qualifiers: Respiratory failure complication: hypoxia Qualified Code(s): J96.01 - Acute respiratory failure with hypoxia (4) Right upper lobe pneumonia: Status: Acute Qualifiers: Pneumonia type: due to unspecified organism Qualified Code(s): J18.9 - Pneumonia, unspecified organism (5) Obstructive sleep apnea: Status: Acute (6) Acute on chronic diastolic (congestive) heart failure: Status: Acute (7) Sleep apnea: Status: Acute Additional A&P Information Sepsis related to right upper lobe pneumonia Sepsis resolved Leukocytosis trending down Patient does not want to get any intervention at this point she will like to get in touch with Dr. Aggarwal and then decide about it I agreed with her approach for the fact her leukocytosis improving she has stayed afebrile and improving on cefepime and azithromycin, she is endorsing productive cough will request sputum cultures today, no bacteremia urine antigens negative so far MRSA PCR negative Covid PCR negative DOUGIE secondary to CHF exacerbation Improving with diuresis, Acute on chronic hypoxic respite failure Her oxygen requirement has come down to 2 L For her pleuritic pain I would keep her on morphine avoid NSAIDs or ketorolac CTA ruled out PE Full code Cardiac diet DVT prophylaxis Lovenox Attestations Medical Necessity Statement*: Anticipating discharge back to assisted living Time Spent in Patient Care: less than 15 minutes Coding Level of Care Code Acute 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 [facility] Diagnoses Sepsis A41.9; R65.20; J96.01 Sepsis type: sepsis due to unspecified organism Sepsis acute organ dysfunction status: with acute organ dysfunction Severe sepsis acute organ dysfunction type: acute respiratory failure Acute respiratory failure type: with hypoxia Severe sepsis shock status: without septic shock DOUGIE (acute kidney injury) N17.9 Acute respiratory failure J96.01 Respiratory failure complication: hypoxia Right upper lobe pneumonia J18.9 Pneumonia type: due to unspecified organism Obstructive sleep apnea G47.33 Acute on chronic diastolic (congestive) heart failure I50.33 Sleep apnea G47.30
--- NOTE | 2020-10-31 13:41 | PC.SOCIAL ---
Pg 2 IMM Explained to pt Pg 2 IMM. No questions voiced. Provided pt a copy. Initialed, dated, & timed a copy & placed in chart.
[2020-10-31 17:24] LABS: Glucose Point of Care 94 mg/dL (70-110)
[2020-10-31] MEDS: levETIRAcetam 500 mg Tablet 1000 MG PO (17:56)
[2020-10-31] MEDS: atorvastatin 40 mg Tablet 80 MG PO (20:34)
[2020-10-31 21:00] LABS: Glucose Point of Care 171 mg/dL (70-110)
[2020-11-01] VITALS (13 sets, daily range): BP systolic 87–123; BP diastolic 54–76; PULSE 71–90; RESP 14–20; TEMP 36.4–36.9; O2SAT 95–99
[2020-11-01] MEDS: enoxaparin 40 mg/0.4 mL Syringe SUBCUT (01:36)
[2020-11-01] MEDS: ipratropium-albuterol 3 mL Neb INHALATION ×3 (02:04→15:09)
[2020-11-01 03:23] LABS: Basophils # 0.1 10^3/uL (0.0-0.1); Basophils % 0.6 %; Eosinophils # 0.3 10^3/uL (0.0-0.8); Eosinophils % 2.2 %; Hematocrit 40.9 % (37.0-47.0); Hemoglobin 12.4 g/dL (11.5-15.3); Lymphocytes # 1.2 10^3/uL (0.8-4.8); Lymphocytes % 10.1 %; Mean Corpuscular HGB Conc 30.3 g/dL (30.0-36.0); Mean Corpuscular Hemoglobin 27.7 pg (28.0-34.0); Mean Corpuscular Volume 91.5 fl (81-99); Mean Platelet Volume 11.2 fL (7.4-10.4); Monocytes # 1.1 10^3/uL (0.2-0.9); Monocytes % 9.6 %; Neutrophils # 8.88 10^3/uL (1.8-7.7); Nucleated Red Blood Cells % 0 %; Platelet Count 202 10^3/cmm (130-400); Red Blood Count 4.47 10^6/uL (4.1-5.3); Red Cell Distribution Width 14.6 % (12.1-15.1); White Blood Count 11.8 10^3/uL (4.0-10.0)
[2020-11-01 03:50] LABS: Anion Gap 11.7 (5-19); Blood Urea Nitrogen 21 mg/dL (8-23); Calcium 8.7 mg/dL (8.5-10.5); Carbon Dioxide 32 mmol/L (22-29); Chloride 102 mmol/L (98-107); Glomerular Filtration Rate 62.5 mL/min (90-130); Glucose 106 mg/dL (65-115); Osmolality Calculated 297 mOsm/kg (285-295); Potassium 3.7 mmol/L (3.5-5.1); Sodium 142 mmol/L (136-145)
[2020-11-01] MEDS: morphine 4 mg/mL SDV 1 mL 2 MG IVP ×2 (04:05→10:58)
[2020-11-01] MEDS: roflumilast 500 mcg Tablet PO (06:00)
[2020-11-01] MEDS: levETIRAcetam 500 mg Tablet PO (06:01)
[2020-11-01] MEDS: gabapentin 300 mg Capsule PO (06:01)
[2020-11-01 06:29] LABS: Glucose Point of Care 151 mg/dL (70-110)
--- NOTE | 2020-11-01 06:29 | PC.NURSE ---
total wet bed
[2020-11-01] MEDS: sennosides-docusate Tablet 1 TAB PO (07:59)
[2020-11-01] MEDS: pantoprazole DR 40 mg Tablet PO (07:59)
[2020-11-01] MEDS: bumetanide 0.25 mg/mL SDV 4 mL 1 MG IV (08:10)
[2020-11-01 11:15] LABS: Glucose Point of Care 221 mg/dL (70-110)
--- NOTE | 2020-11-01 11:33 | P.DS_ITS ---
Discharge Providers Date of Admission: 10/28/20 20:48 Date of Discharge: November 01, 2020 Attending Provider at Admission: Gladys Salcedo MD Attending Provider at Discharge: Lucas Raya MD Primary Care Provider: Tashi Acosta MD Diagnoses at Discharge Discharge Diagnosis (1) Sepsis: Status: Acute Qualifiers: Sepsis type: sepsis due to unspecified organism Sepsis acute organ dysfunction status: with acute organ dysfunction Severe sepsis acute organ dysfunction type: acute respiratory failure Acute respiratory failure type: with hypoxia Severe sepsis shock status: without septic shock Qualified Code(s): A41.9 - Sepsis, unspecified organism; R65.20 - Severe sepsis without septic shock; J96.01 - Acute respiratory failure with hypoxia (2) DOUGIE (acute kidney injury): Status: Acute (3) Acute respiratory failure: Status: Acute Qualifiers: Respiratory failure complication: hypoxia Qualified Code(s): J96.01 - Acute respiratory failure with hypoxia (4) Right upper lobe pneumonia: Status: Acute Qualifiers: Pneumonia type: due to unspecified organism Qualified Code(s): J18.9 - Pneumonia, unspecified organism (5) Obstructive sleep apnea: Status: Acute (6) Acute on chronic diastolic (congestive) heart failure: Status: Acute (7) Sleep apnea: Status: Acute Reason for Visit Reason for Visit: DIFFICULTY BREATHING Hospital Course Hospital Course Patient was admitted for management of acute on chronic hypoxic respiratory failure(uses 2 L of oxygen at baseline at assisted living), she was experiencing productive cough with yellow-green sputum she also noticed specks of blood in her sputum, she was admitted for sepsis however sepsis resolved with broad- spectrum antibiotics, her cultures were sterile, sputum culture is pending however preliminary report is unremarkable, her leukocytosis improved, she did not spike any temperature during her hospitalization, MRSA PCR negative, vancomycin was discontinued she remained on cefepime and azithromycin during hospitalization. CT scan done in October revealed right upper lobe pneumonia with lymphadenopathy, patient was seen by Dr. Aggarwal in the past. Bronchioloalveolar lavage and bronchoscopy was brought up during this hospitalization however patient decided to follow-up with her physical sciences professor first before making that decision. I agreed because of the fact her sepsis resolved, leukocytosis improved and she has remained afebrile and I have not seen any growth in her cultures. I am going to discharge her on Bumex 1 mg with potassium supplementation, her creatinine improved with diuresis. Her oxygen requirement came down to baseline 2 L. She will go back to assisted living on Levaquin. Of note, patient did complain of right-sided pleuritic chest pain I was reluctant to give her anti-inflammatory secondary to DOUGIE her symptoms slightly improved with morphine. CTA ruled out PE. She did not experience recurrence of excessive hemoptysis, hemoglobin stayed stable. Physical Exam Narrative: EXAM NARRATIVE: Patient was laying supine comfortably however still complaining of pleuritic right-sided chest pain S1, S2 Distended abdomen central obesity Active wheezing bilaterally however no acute respiratory distress no use of respiratory sensory muscles he saturating well on 2 L nasal cannula No edema noted No signs of cyanosis or gangrene No neurological deficit Discharge Data Data Completed and Pending: Completed Studies During Hospitalization Category Date Time Status CT angio chest PE protcl 66980 Stat Cat Scan 10/28/20 19:09 Completed XR chest 1V lanre ble [id number] Stat Exams 10/28/20 17:08 Completed Pending at discharge Category Date Time Status Blood Culture Sta t Lab 10/29/20 19:10 Results Levetiracetam Kep pra Routine Lab 10/30/20 06:48 Received Sputum Culture an d Gram Stain Stat Lab 10/31/20 16:54 Results Labs from last 24 hours 11/01/20 11/01/20 11/01/20 11:10 06:15 02:34 WBC RBC Hgb Hct MCV MCH MCHC RDW Plt Count MPV Neut % (Auto) Lymph % (Auto) [place] % (Auto) Eos % (Auto) Baso % (Auto) Neut # (Auto) Lymph # (Auto) [place] # (Auto) Eos # (Auto) Baso # (Auto) Nucleated RBC % (a uto) Nucleated RBCs # Sodium 142 Potassium 3.7 Chloride 102 Carbon Dioxide 32 H Anion Gap 11.7 BUN 21 Creatinine 0.9 GFR Calculation 62.5 L Glucose 106 POC Glucose 221 H 151 H Calculated Osmolal ity 297 H Calcium 8.7 11/01/20 10/31/20 10/31/20 02:34 20:56 17:21 WBC 11.8 H RBC 4.47 Hgb 12.4 Hct 40.9 MCV 91.5 MCH 27.7 L MCHC 30.3 RDW 14.6 Plt Count 202 MPV 11.2 H Neut % (Auto) 75.0 Lymph % (Auto) 10.1 [place] % (Auto) 9.6 Eos % (Auto) 2.2 Baso % (Auto) 0.6 Neut # (Auto) 8.88 H Lymph # (Auto) 1.2 [place] # (Auto) 1.1 H Eos # (Auto) 0.3 Baso # (Auto) 0.1 Nucleated RBC % (a uto) 0 Nucleated RBCs # 0.0 Sodium Potassium Chloride Carbon Dioxide Anion Gap BUN Creatinine GFR Calculation Glucose POC Glucose 171 H 94 Calculated Osmolal ity Calcium Vitals: Last Vital Signs Temp 97.6 F 11/01/20 08:00 Pulse 75 11/01/20 08:34 Resp 20 H 11/01/20 10:58 BP 123/74 11/01/20 08:00 Pulse Ox 97 11/01/20 08:34 Discharge Plan Discharge Patient Disposition: Xfer Other Condition: Stable Prescriptions: New bumetanide 1 mg tablet 1 mg PO DAILY Qty: 30 RF: 3 levofloxacin 750 mg tablet 750 mg PO DAILY 7 Days RF: 0 potassium chloride 20 mEq tablet extended release 20 meq PO DAILY Qty: 30 RF: 0 Continued Cough Drops See Rx Instructions .ROUTE .COMPLEX RF: 0 ondansetron 4 mg tablet,disintegrating 4 mg PO Q6H PRN (Reason: nausea and vomiting) Qty: 14 RF: 0 naproxen [Naprosyn] 500 mg tablet 500 mg PO BID PRN (Reason: pain) Qty: 20 RF: 0 Myrbetriq 25 mg tablet extended release 24 hr 25 mg PO DAILY@0700 RF: 0 promethazine-DM 6.25-15 mg/5 mL Syrup 5 ml PO Q6H PRN (Reason: Cough) RF: 0 Tresiba FlexTouch U-100 100 unit/mL (3 mL) insulin pen 10 unit SUBCUT BEDTIME@2000 RF: 0 insulin aspart U-100 [Novolog U-100 Insulin aspart] 100 unit/mL solution See Rx Instructions .ROUTE .COMPLEX RF: 0 carbamide peroxide [Debrox] 6.5 % Drops See Rx Instructions .ROUTE .COMPLEX RF: 0 cholecalciferol (vitamin D3) [Vitamin D3] 25 mcg (1,000 unit) Tablet 25 mcg PO DAILY@0700 RF: 0 Januvia 100 mg Tablet 100 mg PO DAILY@0700 RF: 0 Flonase Sensimist 27.5 mcg/actuation [place],Suspension 1 spray INTRANASAL DAILY@0700 RF: 0 Daliresp 500 mcg tablet 500 mcg PO DAILY@0700 RF: 0 Trelegy Ellipta 100-62.5-25 mcg blister with device 1 inh inhalation DAILY RF: 0 Ozempic See Rx Instructions .ROUTE .COMPLEX RF: 0 ipratropium-albuterol 0.5 mg-3 mg(2.5 mg base)/3 mL Solution For Nebulization 3 ml INHALATION Q4H PRN (Reason: Shortness Of Breath) RF: 0 acetaminophen [Tylenol Extra Strength] 500 mg Tablet 1,000 mg PO Q4H PRN (Reason: Pain) RF: 0 magnesium hydroxide [Milk of Magnesia] 400 mg/5 mL Suspension See Rx Instructions .ROUTE .COMPLEX RF: 0 bisacodyl [Dulcolax (bisacodyl)] 10 mg Suppository 10 mg TN DAILY PRN (Reason: Constipation) RF: 0 Fleet Enema 19-7 gram/118 mL Enema 118 ml TN DAILY PRN (Reason: Constipation) RF: 0 gabapentin 300 mg capsule 300 mg PO BID@0700,2000 RF: 0 bisacodyl [Dulcolax (bisacodyl)] 5 mg Tablet,Delayed Release (Dr/Ec) 10 mg PO DAILY PRN (Reason: Constipation) RF: 0 hydroxyzine pamoate [Vistaril] 25 mg Capsule See Rx Instructions .ROUTE .COMPLEX RF: 0 rosuvastatin 40 mg tablet 40 mg PO BEDTIME@1999 RF: 0 melatonin 5 mg Tablet 5 mg PO BEDTIME@1999 RF: 0 pioglitazone [Actos] 15 mg Tablet 7.5 mg PO DAILY@0700 RF: 0 venlafaxine 75 mg Capsule,Extended Release 24hr 75 mg PO DAILY@0700 RF: 0 sodium chloride [Saline Nasal] 0.65 % Aerosol,[place] See Rx Instructions .ROUTE .COMPLEX RF: 0 levetiracetam 500 mg tablet See Rx Instructions .ROUTE .COMPLEX RF: 0 Discontinued furosemide [Lasix] 40 mg tablet 40 mg PO DAILY@0700 RF: 0 Discharge Orders: Discharge Order (Routine); Ordered 11/01/20 Ordered By: Lucas Raya Referrals: Kory Aggarwal MD [Physician] - 4-7 days Discharge Diet: Cardiac Discharge Activity: Increase activity as tolerated Activity Restrictions/Additional Instructions: Please finish 7 days on Levaquin Your leukocytosis has been improving, cultures negative to date, As decided you can follow-up with Dr. Aggarwal your physical sciences professor for bronchoscopy and bronchoalveolar lavage, malignancy has not been ruled out yet Your Lasix has been discontinued you can take Bumex 1 mg daily with potassium supplementation 20 mg daily, you can also increase Bumex dose to 2 mg in case of worsening of shortness of breath, weight gain of greater than 5 pounds in a day Discharge Attestations Time Spent in Discharge Care*: less than 30 min Quality Metrics Clinical Quality Measures During this hospital stay, did patient experience: None Coding Level of Care Code Acute g FW DC note Diagnoses Sepsis A41.9; R65.20; J96.01 Sepsis type: sepsis due to unspecified organism Sepsis acute organ dysfunction status: with acute organ dysfunction Severe sepsis acute organ dysfunction type: acute respiratory failure Acute respiratory failure type: with hypoxia Severe sepsis shock status: without septic shock DOUGIE (acute kidney injury) N17.9 Acute respiratory failure J96.01 Respiratory failure complication: hypoxia Right upper lobe pneumonia J18.9 Pneumonia type: due to unspecified organism Obstructive sleep apnea G47.33 Acute on chronic diastolic (congestive) heart failure I50.33 Sleep apnea G47.30
--- NOTE | 2020-11-01 16:33 | PC.RESP ---
SMOKING CESSATION AND PULMONARY REHAB INFORMATION SENT TO PATIENT.
--- NOTE | 2020-11-04 09:51 | PC.SOCIAL ---
Patient is a resident at [facility]. Spoke with nurse and follow up appointment with Dr. Aggarwal has been made. Let the nurse know about the scheduled appointment with Dr. Acosta. patient is taking medications as prescribed and feeling better.
== END 2020-11-01 17:08 | disposition home or self-care (01) | DRG 871 ==
LOC: ER 17:41 → MEDSURG 22:01
PROVIDERS: Admitting Provider Student in an Organized Health Care Education/Training Program; Emergency Provider Family Medicine; PCP Family Medicine; Visit Provider Internal Medicine
DX: A41.9 Sepsis, unspecified organism (principal); J96.21 Acute and chronic respiratory failure with hypoxia; J18.9 Pneumonia, unspecified organism; I50.33 Acute on chronic diastolic (congestive) heart failure; N17.9 Acute kidney failure, unspecified; I42.8 Other cardiomyopathies; Z68.42 Body mass index [BMI] 45.0-49.9, adult; E66.2 Morbid (severe) obesity with alveolar hypoventilation; R65.20 Severe sepsis without septic shock; I11.0 Hypertensive heart disease with heart failure; J44.9 Chronic obstructive pulmonary disease, unspecified; I34.0 Nonrheumatic mitral (valve) insufficiency; I27.20 Pulmonary hypertension, unspecified; I07.1 Rheumatic tricuspid insufficiency; E11.9 Type 2 diabetes mellitus without complications; F17.210 Nicotine dependence, cigarettes, uncomplicated; E78.5 Hyperlipidemia, unspecified; G40.909 Epilepsy, unspecified, not intractable, without status epilepticus; F32.9 Major depressive disorder, single episode, unspecified; Z99.81 Dependence on supplemental oxygen; Z82.49 Family history of ischemic heart disease and other diseases of the circulatory system; Z79.4 Long term (current) use of insulin
CPT/HCPCS: 36415; 36416; 36600; 71045; 71275; 80048; 80053; 80177; 82803; 82962; 83605; 83880; 84145; 84484; 85025; 85378; 85384; 86140; 86403; 87040; 87070; 87205; 87426; 87449; 87635; 87641; 93005; 94640; 96365; 96372; 99285; J0692; J1650; J1815; J1956; J2270; J3370; J3490; J7626; Q0144; Q9967

== ENCOUNTER 2020-11-01 18:34 | Emergency (ER) | payer MEDICARE, MEDICAID, SELFPAY ==
--- NOTE | 2020-11-01 18:38 | ED_ITS ---
HPI - Wound/Laceration General: Chief Complaint: Extremity Injury, Lower Stated Complaint: LACERATION ON FOOT/FALL Time Seen by Provider: 11/01/20 18:38 History of Present Illness: HPI narrative: Ms. Loera is a 65-year-old lady with complex past medical history presents to the emergency department due to laceration of her toe. She was just hospitalized for pneumonia and was being discharged home. During the process of transfer from wheelchair her toes became hyperextended and the right fifth toe skin tore on the plantar aspect of the foot just at the junction with the foot. There was immediate pain. No head strike or other preceding symptoms including dizziness, lightheadedness, chest pain, shortness of breath worse than baseline patient does not ambulate at baseline. She is a diabetic. Overall the intensity symptoms well not moving or anything touching her toe is mild however worsens with palpation and movement. She otherwise has no new complaints however she does still report symptoms related to her pneumonia. Review of Systems General: Reports: 10 or more systems reviewed and unremarkable except in HPI and below Narrative: CONSTITUTIONAL: Positive fever, fatigue, weakness EYES - denies pain, denies loss of vision EARS - denies ear issues. NOSE - denies congestion or rhinorrhea. THROAT - denies sore throat or difficulty swallowing. CARDIOVASCULAR - denies chest pain and palpitations RESPIRATORY -positive shortness of breath and cough GASTROINTESTINAL - denies abdominal pain, no nausea vomiting, no changes in bowel habits GENITOURINARY - denies dysuria or urinary frequency MUSCULOSKELETAL-see HPI SKIN - denies rashes or new changed skin lesions. See HPI NEUROLOGIC - denies focal weakness or sensory changes. Mild baseline neuropathy HEMATOLOGIC/LYMPHATIC - denies easy bruising or lymphadenopathy. PFSH ED PFSH: Medical History Acute on chronic diastolic (congestive) heart failure Benign essential hypertension with target blood pressure below 140/90 Chronic respiratory failure with hypoxia and hypercapnia COPD (chronic obstructive pulmonary disease) Depression Diastolic congestive heart failure Hyperlipidemia Hypertension Moderate to severe mitral regurgitation Nonischemic cardiomyopathy Obesity Obesity hypoventilation syndrome Obstructive sleep apnea Pulmonary hypertension Restrictive lung disease Seizure disorder Sleep apnea Tricuspid regurgitation Type 2 diabetes mellitus Surgical History H/O mitral valve replacement History of Ulnar nerve compression Family History Brother CAD (coronary artery disease) Sister CAD (coronary artery disease) Grandmother Diabetes Mother Stroke Denies family history of Clotting disorder Dementia Chronic kidney disease (CKD) Suicide Anesthesia complication Bleeding disorder Lung disease Cancer Social History Smoking and tobacco status: current every day smoker cigarettes Years cigarettes smoked: 30 [ Other cigarette details: Hx of 1PPD x 30 Years ] Second hand smoke exposure: Yes Smoking risk assessment/counseling performed?: Yes Alcohol intake: never Counseling given: No Counseling given: No Caregiver/support person: Yes Lives independently: No Housing: Assisted Living Facility Marital status: / Current occupational status: retired and disabled History of recent travel: No Current gender identity: Female Physical Exam Narrative: EXAM NARRATIVE: GENERAL/CONSTITUTIONAL - well-appearing. No acute distress. Eyes - PERRL, no conjunctival injection ENMT - Atraumatic external nose and ears. Moist mucous membranes NECK - supple. trachea midline CARDIOVASCULAR - regular rate and rhythm. Peripheral pulses 2+ and equal RESPIRATORY -coarse breath sounds to auscultation bilaterally. No retractions or accessory muscle use. Cough present. ABDOMEN/GI - Nontender/Nondistended. No tenderness to percussion or evidence of peritonitis MSK - Extremities without obvious deformity. Tenderness palpation of the right foot especially around the toes SKIN - Warm, Dry NEURO - alert and appropriately oriented. strength and sensation intact. Moves all extremities equally. PSYCH - Appropriate mood and affect Procedures Laceration Laceration 1: Site: lower extremity Side (If applicable): right Size (cm): 1 Description: linear Depth: simple, single layer Local Anesthetic: lidocaine 2% Amount of anesthesia used (mL): 2 Pre-repair: wound explored, irrigated extensively and deep structures intact Skin layer closed with: nylon Size (cm): 4-0 Number of sutures: 3 Technique: simple, interrupted and horizontal mattress Course ED course: - Patient was seen and evaluated by me at bedside - Patient placed on cardiac monitors - Initial evaluation notable for laceration to right fifth toe on the plantar aspect where the toe and the main part of the foot meet likely secondary to hyperextension/skin tearing. Mild venous oozing noted. - Imaging notable for no underlying fracture identified -Laceration repair performed and patient tolerated procedure well. Strict care instructions and return precautions given - Upon serial reexamination after treatment the patient was improved - Based on patient history, evaluation, labs, and imaging as interpreted the most likely cause of the patient's condition is laceration - The results of ED evaluation were discussed with the patient including prescriptions and/or symptomatic cares including appropriate and responsible use, followup plan, and return precautions. The patient verbalized understanding and felt safe for discharge. - Patient discharged in satisfactory condition. Vital Signs: Vital signs: Vital Signs Temperature 97.4 F L 11/01/20 21:09 Pulse Rate 86 11/01/20 21:09 Respiratory Rate 16 11/01/20 21:09 Blood Pressure 110/51 11/01/20 21:09 Pulse Oximetry 93 11/01/20 21:09 MDM - Wound/Laceration Medical Records: Attestation: I reviewed the patient's medical records. Lab Data: Attestation: I reviewed the patient's lab results. Discharge Plan Discharge Patient Disposition: Home Clinical Impression: Laceration of toe Condition: Stable Prescriptions: No Action Cough Drops See Rx Instructions .ROUTE .COMPLEX RF: 0 ondansetron 4 mg tablet,disintegrating 4 mg PO Q6H PRN (Reason: nausea and vomiting) Qty: 14 RF: 0 naproxen [Naprosyn] 500 mg tablet 500 mg PO BID PRN (Reason: pain) Qty: 20 RF: 0 Myrbetriq 25 mg tablet extended release 24 hr 25 mg PO DAILY@0700 RF: 0 promethazine-DM 6.25-15 mg/5 mL Syrup 5 ml PO Q6H PRN (Reason: Cough) RF: 0 levofloxacin 750 mg tablet 750 mg PO DAILY 7 Days RF: 0 bumetanide 1 mg tablet 1 mg PO DAILY Qty: 30 RF: 3 potassium chloride 20 mEq tablet extended release 20 meq PO DAILY Qty: 30 RF: 0 Tresiba FlexTouch U-100 100 unit/mL (3 mL) insulin pen 10 unit SUBCUT BEDTIME@2000 RF: 0 insulin aspart U-100 [Novolog U-100 Insulin aspart] 100 unit/mL solution See Rx Instructions .ROUTE .COMPLEX RF: 0 carbamide peroxide [Debrox] 6.5 % Drops See Rx Instructions .ROUTE .COMPLEX RF: 0 cholecalciferol (vitamin D3) [Vitamin D3] 25 mcg (1,000 unit) Tablet 25 mcg PO DAILY@0700 RF: 0 Januvia 100 mg Tablet 100 mg PO DAILY@0700 RF: 0 Flonase Sensimist 27.5 mcg/actuation [place],Suspension 1 spray INTRANASAL DAILY@0700 RF: 0 Daliresp 500 mcg tablet 500 mcg PO DAILY@0700 RF: 0 Trelegy Ellipta 100-62.5-25 mcg blister with device 1 inh inhalation DAILY RF: 0 Ozempic See Rx Instructions .ROUTE .COMPLEX RF: 0 ipratropium-albuterol 0.5 mg-3 mg(2.5 mg base)/3 mL Solution For Nebulization 3 ml INHALATION Q4H PRN (Reason: Shortness Of Breath) RF: 0 acetaminophen [Tylenol Extra Strength] 500 mg Tablet 1,000 mg PO Q4H PRN (Reason: Pain) RF: 0 magnesium hydroxide [Milk of Magnesia] 400 mg/5 mL Suspension See Rx Instructions .ROUTE .COMPLEX RF: 0 bisacodyl [Dulcolax (bisacodyl)] 10 mg Suppository 10 mg [place] DAILY PRN (Reason: Constipation) RF: 0 Fleet Enema 19-7 gram/118 mL Enema 118 ml [place] DAILY PRN (Reason: Constipation) RF: 0 gabapentin 300 mg capsule 300 mg PO BID@699,1999 RF: 0 bisacodyl [Dulcolax (bisacodyl)] 5 mg Tablet,Delayed Release (Dr/Ec) 10 mg PO DAILY PRN (Reason: Constipation) RF: 0 hydroxyzine pamoate [Vistaril] 25 mg Capsule See Rx Instructions .ROUTE .COMPLEX RF: 0 rosuvastatin 40 mg tablet 40 mg PO BEDTIME@1999 RF: 0 melatonin 5 mg Tablet 5 mg PO BEDTIME@1999 RF: 0 pioglitazone [Actos] 15 mg Tablet 7.5 mg PO DAILY@0700 RF: 0 venlafaxine 75 mg Capsule,Extended Release 24hr 75 mg PO DAILY@0700 RF: 0 sodium chloride [Saline Nasal] 0.65 % Aerosol,[place] See Rx Instructions .ROUTE .COMPLEX RF: 0 levetiracetam 500 mg tablet See Rx Instructions .ROUTE .COMPLEX RF: 0 Discharge Orders: Discharge ED (Routine); Ordered 11/01/20 Ordered By: Lg Oliveira Referrals: Tashi Acosta MD [Primary Care Provider] - Discharge Diet: Usual diet Discharge Activity: Resume usual activity Patient Instructions: Laceration (ED) Activity Restrictions/Additional Instructions: Thank you for visiting the emergency department. You were seen and evaluated for a laceration which was repaired at bedside with 3 sutures. Given the location and medical history please watch this closely for signs of infection. Please return to the emergency department for signs of infection, or anything else that you are concerned about and needs emergency department evaluation. Sutures to require removal in 10 days and can be done by your primary care provider or at this emergency department. Coding Level of Care Code ED Flight Operations Specialist for [facility]
[2020-11-01 18:40] VITALS: PULSE 98; RESP 18; TEMP 36.5; O2SAT 90; BMI 37.2
[2020-11-01 18:54] VITALS: PULSE 87
--- NOTE | 2020-11-01 18:56 | XRR_ITS ---
PROCEDURE INFORMATION: Exam: XR Right Foot Exam date and time: 11/01/2020 6:56 PM Age: 65 years old Clinical indication: Pain; Foot; Right; Additional info: Right foot injury, 5th digit laceration, ? underlying fracture TECHNIQUE: Imaging protocol: XR Right foot. Views: 3 or more views. COMPARISON: No relevant prior studies available. FINDINGS: Bones/joints: No evidence of acute fracture. Bulky ossifications inferior to the lateral malleolus, most likely related to old injury. Soft tissues: Normal. XR/XR foot RT min 3V* 22099 IMPRESSION: No evidence of acute fracture.
[2020-11-01 18:58] VITALS: BP 111/53; PULSE 87; RESP 18; TEMP 36.5; O2SAT 90
--- NOTE | 2020-11-01 20:47 | PC.NURSE ---
Telfa and kerlex used to dress right foot. Pulses intact before and after dressing applied.
[2020-11-01 21:09] VITALS: BP 110/51; PULSE 86; RESP 16; TEMP 36.3; O2SAT 93
== END 2020-11-01 21:14 | disposition home or self-care (01) ==
PROVIDERS: Emergency Provider Emergency Medicine; PCP Family Medicine
DX: S91.114A Laceration without foreign body of right lesser toe(s) without damage to nail, initial encounter (principal); Z79.4 Long term (current) use of insulin; I11.0 Hypertensive heart disease with heart failure; I50.33 Acute on chronic diastolic (congestive) heart failure; J44.9 Chronic obstructive pulmonary disease, unspecified; E78.5 Hyperlipidemia, unspecified; E11.9 Type 2 diabetes mellitus without complications; F17.210 Nicotine dependence, cigarettes, uncomplicated; X58.XXXA Exposure to other specified factors, initial encounter
CPT/HCPCS: 12001; 73630; 99282

== ENCOUNTER 2020-11-08 10:07 | Outpatient (CLI) | payer MEDICARE, MEDICAID, SELFPAY ==
[2020-11-08 10:13] VITALS: BP 140/50; PULSE 88; RESP 24; O2SAT 96; BMI 47.0
[2020-11-08 11:39] VITALS: BP 114/72; PULSE 79; RESP 20; O2SAT 98
[2020-11-08 12:19] VITALS: BP 107/66; PULSE 88; RESP 20; TEMP 36.7; O2SAT 98
== END 2020-11-08 10:08 | disposition home or self-care (01) ==
PROVIDERS: PCP Family Medicine; Visit Provider Family Medicine
DX: U07.1 COVID-19 (principal)
CPT/HCPCS: 96365

== ENCOUNTER 2020-11-08 19:39 | Inpatient (IN) | payer MEDICARE, MEDICAID, SELFPAY ==
--- NOTE | 2020-11-08 19:49 | XRR_ITS ---
PROCEDURE INFORMATION: Exam: XR Chest Exam date and time: 11/08/2020 7:49 PM Age: 65 years old Clinical indication: Shortness of breath; Patient HX: Short of breath; Cough; Additional info: SOB TECHNIQUE: Imaging protocol: XR of the chest. Views: 1 view. COMPARISON: CR (CHEST, ) 10/28/2020 5:12 PM FINDINGS: Lungs: Patchy bilateral mixed interstitial airspace infiltrates somewhat less localized on the right compared to prior exam. Pleural spaces: Unremarkable. No pleural effusion. No pneumothorax. Heart/Mediastinum: Cardiomegaly. Bones/joints: Unremarkable. XR/XR chest 1V portable [id number] IMPRESSION: Patchy bilateral mixed interstitial airspace infiltrates somewhat less localized on the right compared to prior exam.
--- NOTE | 2020-11-08 19:49 | ECG_ITS ---
[facility] Test Date: 2020-11-08 Pat Name: Yaquelin Loera Department: Room: Gender: Female Body Liner: : 1955 Requested By: Devorah Agee Order Number: [id number] José MD: Eliezer Mills M.D. Measurements Intervals [place] Rate: 77 P: 58 [place]: 171 QRS: 73 QRSD: 85 T: 66 QT: 428 QTc: 486 Interpretive Statements SINUS RHYTHM WITH OCCASIONAL VENTRICULAR PREMATURE COMPLEXES POSSIBLE LEFT ATRIAL ENLARGEMENT [-0.1mV P-WAVE IN V1/V2] Compared to ECG 10/28/2020 19:14:28 Sinus tachycardia no longer present Electronically Signed On 11-09-2020 17:09:27 CDT by Eliezer Mills M.D. [email or web address] medical [id number] f
[2020-11-08 19:55] VITALS: BP 92/56; PULSE 81; RESP 18; TEMP 37.9; O2SAT 93; BMI 47.0
--- NOTE | 2020-11-08 20:07 | ED_ITS ---
HPI - SOB/Dyspnea General: Chief Complaint: Shortness of Breath/Dyspnea Stated Complaint: AMS/COVID + Time Seen by Provider: 11/08/20 19:44 Source: patient and EMS Mode of arrival: EMS Limitations: no limitations History of Present Illness: HPI Narrative: 65-year-old female with a history of COPD states she was diagnosed with Covid on Sunday. She was recently admitted to the hospital here 2 weeks ago for right-sided pneumonia. She states she supposed to be on 3 L at baseline when EMS arrived to her house she was not wearing any oxygen and was in the 70s but once they put her on 4 L she increased to 93%. She states she has had increasing dyspnea is mild. She is a low-grade fever as well 2. She is able answer all my questions appropriately here. She received her monoclonal antibody this morning. Associated symptoms: Deny abdominal pain, chest pain, fever(s), nausea or vomiting Review of Systems Const: Denies: fever(s), chills, body aches or change in appetite Eyes: Denies: blurry vision or eye discomfort ENMT: Denies: throat pain or dental pain Card: Denies: chest pain Resp: Reports: dyspnea and non-productive cough GI: Denies: abdominal pain, nausea, vomiting or diarrhea : Denies: dysuria Musc: Denies: neck pain or back pain Skin/Breast: Denies: rash Neuro: Denies: headache(s) Psych: Denies: depression Maximo/Lymph: Denies: easy bruising All/Imm: Denies: urticaria PFSH ED PFSH: Medical History (Updated 11/09/20 @ 00:03 by Devorah Agee MD) Acute on chronic diastolic (congestive) heart failure Benign essential hypertension with target blood pressure below 140/90 Chronic respiratory failure with hypoxia and hypercapnia COPD (chronic obstructive pulmonary disease) Depression Diastolic congestive heart failure Hyperlipidemia Hypertension Moderate to severe mitral regurgitation Nonischemic cardiomyopathy Obesity Obesity hypoventilation syndrome Obstructive sleep apnea Pulmonary hypertension Restrictive lung disease Seizure disorder Sleep apnea Tricuspid regurgitation Type 2 diabetes mellitus Surgical History H/O mitral valve replacement History of Ulnar nerve compression Family History Brother CAD (coronary artery disease) Sister CAD (coronary artery disease) Grandmother Diabetes Mother Stroke Denies family history of Clotting disorder Dementia Chronic kidney disease (CKD) Suicide Anesthesia complication Bleeding disorder Lung disease Cancer Social History Smoking and tobacco status: current every day smoker cigarettes Years cigarettes smoked: 30 [ Other cigarette details: Hx of 1PPD x 30 Years ] Second hand smoke exposure: Yes Smoking risk assessment/counseling performed?: Yes Alcohol intake: never Counseling given: No Counseling given: No Caregiver/support person: Yes Lives independently: No Housing: Assisted Living Facility Marital status: / Current occupational status: retired and disabled History of recent travel: No Current gender identity: Female Physical Exam Const: COMMON NORMALS: patient oriented x3 GENERAL APPEARANCE: disheveled HENMT: COMMON NORMALS: normocephalic and atraumatic HEAD & SCALP: normocep halic and atraumatic Eye: COMMON NORMALS: Equal, round and reactive pupils present and EOMs intact bilaterally PUPIL: Yes Equal, round and reactive pupils present Neck/C-Spine: COMMON NORMALS: full ROM and supple Chest: COMMONS NORMALS: normal inspection of the chest and normal palpation of entire chest wall Resp: COMMON NORMALS: normal respiratory effort, No retractions and No use of accessory muscles AUSCULTATION: wheezes Cardio: COMMON NORMALS: regular rate, regular rhythm and No murmurs present (Cardio) RATE: regular rate RHYTHM: regular rhythm GI: COMMON NORMALS: Normal to inspection, nondistended, normoactive bowel sounds present, Soft to palpation, non-tender and no masses PALPATION: Yes Soft to palpation Extremity: COMMON NORMALS: normal to inspection and full ROM Neuro: COMMON NORMALS: patient oriented x3, moves all extremities and no focal motor deficits Psych: COMMON NORMALS: mental status grossly normal, Normal thought process present and cooperative THOUGHT PROCESS: Normal thought process present Skin: COMMON NORMALS: no rashes or lesions noted and no wounds GENERAL SKIN EXAM: no rashes or lesions noted Course Vital Signs: Vital signs: Vital Signs Temperature 100.2 F H 11/08/20 19:55 Pulse Rate 87 11/08/20 22:24 Respiratory Rate 14 11/08/20 22:24 Blood Pressure 145/107 11/08/20 22:24 Pulse Oximetry 93 11/08/20 22:24 MDM - SOB/Dyspnea MDM Narrative: Medical decision making narrative: Patient presents here with Covid along with x-ray concern for possible bacterial pneumonia especially since she has an elevated white count of 24 and elevated CRP. This all could be due to her Covid as well. Patient had blood cultures drawn and started on IV antibiotics. She is requiring more oxygen than at baseline I spoke to hospitalist and will admit at this time. Patient had been stable in the ER. Lab Data: Labs: Lab Results 11/08/20 11/08/20 11/08/20 Range/Units 20:11 20:11 20:11 WBC 24.2 H (4.0-10.0) 10^3/ uL RBC 4.57 (4.1-5.3) 10^6/u L Hgb 12.8 (11.5-15.3) g/dL Hct 40.9 (37.0-47.0) % MCV 89.5 (81-99) fl MCH 28.0 (28.0-34.0) pg MCHC 31.3 (30.0-36.0) g/dL RDW 15.0 (12.1-15.1) % Plt Count 213 (130-400) 10^3/c mm MPV 11.1 H (7.4-10.4) fL Neut % (Auto) 92.1 % Lymph % (Auto) 1.9 % [place] % (Auto) 4.9 % Eos % (Auto) 0.2 % Baso % (Auto) 0.2 % Neut # (Auto) 22.25 H (1.8-7.7) 10^3/u L Lymph # (Auto) 0.5 L (0.8-4.8) 10^3/u L [place] # (Auto) 1.2 H (0.2-0.9) 10^3/u L Eos # (Auto) 0.0 (0.0-0.8) 10^3/u L Baso # (Auto) 0.1 (0.0-0.1) 10^3/u L Nucleated RBC % (a uto) 0 % Nucleated RBCs # 0.0 /100WBC D-Dimer 3.36 H (0-0.59) ug/mIFE U Sodium 136 (136-145) mmol/L Potassium 4.0 (3.5-5.1) mmol/L Chloride 96 L (98-107) mmol/L Carbon Dioxide 28 (22-29) mmol/L Anion Gap 16.0 (5-19) BUN 14 (8-23) mg/dL Creatinine 0.9 (0.5-0.9) mg/dL GFR Calculation 62.5 L (90-130) mL/min Glucose 139 H (65-115) mg/dL Calculated Osmolal ity 285 (285-295) mOsm/k g Lactic Acid (0.5-2.2) mmol/L Calcium 8.7 (8.5-10.5) mg/dL Total Bilirubin 0.4 (0.15-1.2) mg/dL AST 24 (0-32) U/L ALT 16 (0-33) U/L Alkaline Phosphata se 83 (35-105) IU/L C-Reactive Protein 205.5 H (0.0-4.9) mg/L NT-Pro-B Natriuret Pep 1088 H (0-125) pg/mL Total Protein 6.4 L (6.6-8.7) g/dL Albumin 3.0 L (3.5-5.2) g/dL Globulin 3.4 (1.3-4.6) g/dL 11/08/20 Range/Units 20:11 WBC (4.0-10.0) 10^3/ uL RBC (4.1-5.3) 10^6/u L Hgb (11.5-15.3) g/dL Hct (37.0-47.0) % MCV (81-99) fl MCH (28.0-34.0) pg MCHC (30.0-36.0) g/dL RDW (12.1-15.1) % Plt Count (130-400) 10^3/c mm MPV (7.4-10.4) fL Neut % (Auto) % Lymph % (Auto) % [place] % (Auto) % Eos % (Auto) % Baso % (Auto) % Neut # (Auto) (1.8-7.7) 10^3/u L Lymph # (Auto) (0.8-4.8) 10^3/u L [place] # (Auto) (0.2-0.9) 10^3/u L Eos # (Auto) (0.0-0.8) 10^3/u L Baso # (Auto) (0.0-0.1) 10^3/u L Nucleated RBC % (a uto) % Nucleated RBCs # /100WBC D-Dimer (0-0.59) ug/mIFE U Sodium (136-145) mmol/L Potassium (3.5-5.1) mmol/L Chloride (98-107) mmol/L Carbon Dioxide (22-29) mmol/L Anion Gap (5-19) BUN (8-23) mg/dL Creatinine (0.5-0.9) mg/dL GFR Calculation (90-130) mL/min Glucose (65-115) mg/dL Calculated Osmolal ity (285-295) mOsm/k g Lactic Acid 1.1 (0.5-2.2) mmol/L Calcium (8.5-10.5) mg/dL Total Bilirubin (0.15-1.2) mg/dL AST (0-32) U/L ALT (0-33) U/L Alkaline Phosphata se (35-105) IU/L C-Reactive Protein (0.0-4.9) mg/L NT-Pro-B Natriuret Pep (0-125) pg/mL Total Protein (6.6-8.7) g/dL Albumin (3.5-5.2) g/dL Globulin (1.3-4.6) g/dL Imaging Data^: CXR: Attestation: I personally reviewed and interpreted this imaging study as follows: Radiologist's impression: [address] [address] XRay Report Signed Patient: Yaquelin Loera Unit #: [id number] : 1955 Age/Sex: 65 / F ADM Date: 11/08/20 Loc: ER Room/Bed: Attending Dr: Ordering Provider/Ordering MD: Devorah Agee MD Date of Service: 11/08/20 Procedure(s): XR chest 1V portable [id number] Accession Number(s): [id number] Report Number: [id number] PROCEDURE INFORMATION: Exam: XR Chest Exam date and time: 11/08/2020 7:49 PM Age: 65 years old Clinical indication: Shortness of breath; Patient HX: Short of breath; Cough; Additional info: SOB TECHNIQUE: Imaging protocol: XR of the chest. Views: 1 view. COMPARISON: CR (CHEST, ) 10/28/2020 5:12 PM FINDINGS: Lungs: Patchy bilateral mixed interstitial airspace infiltrates somewhat less localized on the right compared to prior exam. Pleural spaces: Unremarkable. No pleural effusion. No pneumothorax. Heart/Mediastinum: Cardiomegaly. Bones/joints: Unremarkable. XR/XR chest 1V portable [id number] IMPRESSION: Patchy bilateral mixed interstitial airspace infiltrates somewhat less localized on the right compared to prior exam. CT Chest: Radiologist's impression: [address] [address] [address] Scan Report Signed Patient: Yaquelin Loera Unit #: [id number] : 1955 Age/Sex: 65 / F ADM Date: 11/08/20 Loc: ER Room/Bed: Attending Dr: Ordering Provider/Ordering MD: Devorah Agee MD Date of Service: 11/08/20 Procedure(s): CT angio chest PE protcl [id number] Accession Number(s): [id number] Report Number: [id number] PROCEDURE INFORMATION: Exam: CTA Chest With Contrast Exam date and time: 11/08/2020 8:42 PM Age: 65 years old Clinical indication: Cough and shortness of breath; Additional info: SOB, cough, covid + TECHNIQUE: Imaging protocol: Computed tomographic angiography of the chest with contrast. 3D rendering (Not supervised by radiologist): MIP and/or 3D reconstructed images were created by the technologist. Radiation optimization: All CT scans at this facility use at least one of these dose optimization techniques: automated exposure control; mA and/or kV adjustment per patient size (includes targeted exams where dose is matched to clinical indication); or iterative reconstruction. Contrast material: OMNI 350; Contrast volume: 77 ml; Contrast route: INTRAVENOUS (IV); COMPARISON: CT angio chest PE protcl [id number] 10/28/2020 7:25 PM RADIATION DOSE METRICS: Total DLP (mGy-cm): 538.74 FINDINGS: Pulmonary arteries: Normal. No pulmonary emboli. Aorta: Unremarkable. No aortic aneurysm. No aortic dissection. Lungs: There are patchy ground-glass opacities present within the upper lobes bilaterally, findings compatible with a bilateral upper lobe interstitial pneumonia. Of note, there is improved aeration in the right upper lobe compared with 10/29/2019 but new findings are seen within the left upper lobe. Pleural spaces: Unremarkable. No pneumothorax. No pleural effusion. Heart: Unremarkable. No cardiomegaly. No pericardial effusion. Lymph nodes: Unremarkable. No enlarged lymph nodes. Bones/joints: Unremarkable. No acute fracture. Soft tissues: Unremarkable. CT/CT angio chest PE protcl [id number] IMPRESSION: Bilateral patchy ground-glass opacity seen in the upper lobes compatible with bilateral upper lobe interstitial pneumonia. There has been improvement in aeration in the right upper lobe but worsening infiltrates in the left upper lobe. Radiation Dose CTDIVOL = (mGy): DLP = 538.74 (mGy-cm) Dictated By: Kelechi Shin MD Signed By: Kelechi Shin MD Signed Date/Time: 11/08/202204 DD/ 02 EKG Data^: EKG 1: Attestation: I personally reviewed and interpreted this EKG as follows: EKG Interpretation Date: 11/08/20 EKG interpretation time: 22:33 Interpretation: nsr hr [address] or twave abnormalities qrs 96 qtc 460 Discharge Plan Discharge Patient Disposition: Admitted As Inpatient Clinical Impression: COVID-19, Pneumonia Condition: Stable Coding Level of Care Code ED Membership Administrator for Chg Fwd Exam Comprehensive
[2020-11-08] MEDS: dexamethasone 10 mg/mL INJ IVP (20:18)
[2020-11-08] MEDS: acetaminophen 325 mg Tablet 650 MG PO (20:18)
[2020-11-08 20:22] LABS: Basophils # 0.1 10^3/uL (0.0-0.1); Basophils % 0.2 %; Eosinophils % 0.2 %; Hematocrit 40.9 % (37.0-47.0); Hemoglobin 12.8 g/dL (11.5-15.3); Lymphocytes # 0.5 10^3/uL (0.8-4.8); Lymphocytes % 1.9 %; Mean Corpuscular HGB Conc 31.3 g/dL (30.0-36.0); Mean Corpuscular Volume 89.5 fl (81-99); Mean Platelet Volume 11.1 fL (7.4-10.4); Monocytes # 1.2 10^3/uL (0.2-0.9); Monocytes % 4.9 %; Neutrophils # 22.25 10^3/uL (1.8-7.7); Neutrophils % 92.1 %; Nucleated Red Blood Cells % 0 %; Platelet Count 213 10^3/cmm (130-400); Red Blood Count 4.57 10^6/uL (4.1-5.3); White Blood Count 24.2 10^3/uL (4.0-10.0)
[2020-11-08] MEDS: albuterol 8 gm MDI 2 PUFF INHALATION (20:30)
[2020-11-08 20:33] VITALS: PULSE 88; RESP 16; O2SAT 98
[2020-11-08 20:41] LABS: D Dimer 3.36 ug/mIFEU (0-0.59)
--- NOTE | 2020-11-08 20:42 | CTR_ITS ---
PROCEDURE INFORMATION: Exam: CTA Chest With Contrast Exam date and time: 11/08/2020 8:42 PM Age: 65 years old Clinical indication: Cough and shortness of breath; Additional info: SOB, cough, covid + TECHNIQUE: Imaging protocol: Computed tomographic angiography of the chest with contrast. 3D rendering (Not supervised by radiologist): MIP and/or 3D reconstructed images were created by the technologist. Radiation optimization: All CT scans at this facility use at least one of these dose optimization techniques: automated exposure control; mA and/or kV adjustment per patient size (includes targeted exams where dose is matched to clinical indication); or iterative reconstruction. Contrast material: OMNI 350; Contrast volume: 77 ml; Contrast route: INTRAVENOUS (IV); COMPARISON: CT angio chest PE protcl [id number] 10/28/2020 7:25 PM RADIATION DOSE METRICS: Total DLP (mGy-cm): 538.74 FINDINGS: Pulmonary arteries: Normal. No pulmonary emboli. Aorta: Unremarkable. No aortic aneurysm. No aortic dissection. Lungs: There are patchy ground-glass opacities present within the upper lobes bilaterally, findings compatible with a bilateral upper lobe interstitial pneumonia. Of note, there is improved aeration in the right upper lobe compared with 10/29/2019 but new findings are seen within the left upper lobe. Pleural spaces: Unremarkable. No pneumothorax. No pleural effusion. Heart: Unremarkable. No cardiomegaly. No pericardial effusion. Lymph nodes: Unremarkable. No enlarged lymph nodes. Bones/joints: Unremarkable. No acute fracture. Soft tissues: Unremarkable. CT/CT angio chest PE protcl [id number] IMPRESSION: Bilateral patchy ground-glass opacity seen in the upper lobes compatible with bilateral upper lobe interstitial pneumonia. There has been improvement in aeration in the right upper lobe but worsening infiltrates in the left upper lobe. Radiation Dose CTDIVOL = (mGy): DLP = 538.74 (mGy-cm)
[2020-11-08] MEDS: sodium chloride 0.9% 1,000 ML 999 ML IV (20:44)
[2020-11-08 20:46] LABS: Slide Review Slide Review Perform
[2020-11-08 20:53] LABS: Lactic Sepsis W/Reflex 1.1 mmol/L (0.5-2.2)
[2020-11-08 20:54] LABS: Alanine Aminotransferase 16 U/L (0-33); Alkaline Phosphatase 83 IU/L (35-105); Aspartate Amino Transferase 24 U/L (0-32); Blood Urea Nitrogen 14 mg/dL (8-23); C Reactive Protein 205.5 mg/L (0.0-4.9); Calcium 8.7 mg/dL (8.5-10.5); Carbon Dioxide 28 mmol/L (22-29); Chloride 96 mmol/L (98-107); Globulin 3.4 g/dL (1.3-4.6); Glomerular Filtration Rate 62.5 mL/min (90-130); Glucose 139 mg/dL (65-115); NT Pro B Type Natriuretic Pept 1088 pg/mL (0-125); Osmolality Calculated 285 mOsm/kg (285-295); Sodium 136 mmol/L (136-145); Total Bilirubin 0.4 mg/dL (0.15-1.2); Total Protein 6.4 g/dL (6.6-8.7)
[2020-11-08] MEDS: iohexol 350 mg/mL 100 mL Btl IV (21:12)
[2020-11-08 22:24] VITALS: BP 145/107; PULSE 87; RESP 14; O2SAT 93
[2020-11-09] VITALS (12 sets, daily range): BP systolic 96–118; BP diastolic 50–78; PULSE 73–86; RESP 15–24; TEMP 36.7–37; O2SAT 95–100; BMI 47.0
--- NOTE | 2020-11-09 00:21 | PM.HP ---
Providers/Chief Complaint Admitting Physician: Gladys Salcedo MD Primary Care Provider: Tashi Acosta MD Chief Complaint: AMS/COVID + History of Present Illness Yaquelin Loera is a 65 year old female with past medical history of severe restrictive lung disease, chronic hypercapnic respiratory failure, obesity hypoventilation syndrome, small airways disease secondary to smoking, chronically on 2 L/min home oxygen, recently admitted here between October 29 to October 31 for right upper lobe community-acquired pneumonia for which she was treated with cefepime and vancomycin while inpatient, transition to oral levofloxacin on discharge. She presents to the ER today after having been diagnosed with Covid on 11/07 by her PCP. She called EMS due to worsening shortness of breath, on room air she was found to be oxygenating in the 70s, thereafter placed on 4 L/min following which oxygen sats improved to 93%. She was noted to be febrile upon presentation. She did receive monoclonal antibody this morning and is additionally previously vaccinated for COVID-19. CTA of the chest today shows resolution of the right upper lobe pneumonia, patchy bilateral infiltrates are noted today along with infiltrates predominant in the left lower lobe. Leukocytosis is a 24. CRP is trending down from previous ~200 <--499. She has received dexamethasone 10 mg IV push in the ER. Review of Systems General: Reports: 10 or more systems reviewed and unremarkable except in HPI and below Const: Denies: fever(s), chills or body aches Eyes: Denies: change in vision, blurry vision or photophobia ENMT: Reports: hoarseness; Denies: throat pain, enlarged tonsils, odynophagia or nasal congestion Card: Denies: chest pain, palpitations, irregular heart rhythm, edema, swelling of feet/ankles, lightheadedness, pre-syncope, dyspnea on exertion or orthopnea Resp: Denies: dyspnea, productive cough, non-productive cough, wheezing, stridor, pain on inspiration, change in phlegm color, hemoptysis or chest congestion GI: Denies: abdominal pain, nausea, vomiting, hematemesis, coffee ground emesis, dysphagia, heartburn, diarrhea, constipation, GI cramping, change in stool character, hematochezia or melena : Denies: flank pain, difficulty voiding, dysuria, urinary frequency, urinary urgency, urinary hesitancy or hematuria Musc: Denies: neck pain, back pain, extremity pain, joint swelling, joint warmth or deformity Neuro: Denies: headache(s), numbness in extremities, weakness in extremities, sensory changes, difficulty walking, frequent falls, dizziness, vertigo, behavioral changes, Slurred speech present or seizure-like activity Psych: Denies: anxiety, depression, suicidal ideation or homicidal ideation Endo: Denies: polyuria, polydipsia, tired all the time, cold intolerance or hot flashes Maximo/Lymph: Denies: easy bruising or easy bleeding Medications/Allergies Home Medications Medication Instructions Recorded Confirmed Last Taken Type Daliresp 500 mcg PO DAILY@0705/16/19 11/08/20 11/08/20 History Fleet Enema 118 ml AR DAILY PRN 05/16/19 11/08/20 Unknown History Flonase Sensimist 1 spray INTRANASAL DAILY@0705/16/19 11/08/20 11/08/20 History Januvia 100 mg PO DAILY@69905/16/19 11/08/20 11/08/20 History Ozempic See Rx Instructions .ROUTE .COMPLEX 05/16/19 11/08/20 11/08/20 History Trelegy Ellipta 1 inh INHALATION DAILY 05/16/19 11/08/20 11/08/20 History Tresiba FlexTouch U-100 10 unit SUBCUT BEDTIME@199905/16/19 11/08/20 11/07/20 History acetaminophen [Tylenol Extra 1,000 mg PO Q4H PRN MDD SEE 05/16/19 11/08/20 11/08/20 History Strength] PHARMACY LIST bisacodyl [Dulcolax (bisacodyl)] 10 mg PO DAILY PRN 05/16/19 11/08/20 Unknown History bisacodyl [Dulcolax (bisacodyl)] 10 mg AR DAILY PRN 05/16/19 11/08/20 Unknown History carbamide peroxide [Debrox] See Rx Instructions .ROUTE .COMPLEX 05/16/19 11/08/20 06/03/19 History cholecalciferol (vitamin D3) 25 mcg PO DAILY@0700 05/16/19 11/08/20 11/08/20 History [Vitamin D3] gabapentin 300 mg PO BID@07,199905/16/19 11/08/20 11/08/20 History hydroxyzine pamoate [Vistaril] See Rx Instructions .ROUTE .COMPLEX 05/16/19 11/08/20 11/08/20 History insulin aspart U-100 [Novolog See Rx Instructions .ROUTE .COMPLEX 05/16/19 11/08/20 06/03/19 History U-100 Insulin aspart] ipratropium-albuterol 3 ml INHALATION Q4H PRN 05/16/19 11/08/20 Unknown History magnesium hydroxide [Milk of See Rx Instructions .ROUTE .COMPLEX 05/16/19 11/08/20 Unknown History Magnesia] melatonin 5 mg PO BEDTIME@199905/16/19 11/08/20 11/07/20 History rosuvastatin 40 mg PO BEDTIME@199905/16/19 11/08/20 11/08/20 History pioglitazone [Actos] 7.5 mg PO DAILY@0700 05/31/19 11/08/20 11/08/20 History sodium chloride [Saline Nasal] See Rx Instructions .ROUTE .COMPLEX 05/31/19 11/08/20 11/08/20 History venlafaxine 75 mg PO DAILY@0705/31/19 11/08/20 11/08/20 History levetiracetam 500 mg PO BID@0700,1900 06/03/19 11/08/20 11/08/20 History Cough Drops See Rx Instructions .ROUTE .COMPLEX 01/30/20 11/08/20 Unknown History naproxen [Naprosyn] 500 mg PO BID PRN #20 tab 01/30/20 11/08/20 Unknown Rx ondansetron 4 mg PO Q6H PRN #14 tab 01/30/20 11/08/20 10/28/20 06:49 Rx Myrbetriq 25 mg PO DAILY@0700 10/28/20 11/08/20 11/08/20 History promethazine-DM 5 ml PO Q6H PRN 10/28/20 11/08/20 Unknown History bumetanide 1 mg PO DAILY #30 tab 11/01/20 11/08/20 11/08/20 Rx potassium chloride 20 meq PO DAILY #30 tab 11/01/20 11/08/20 11/08/20 Rx furosemide 40 mg PO DAILY@0700 11/08/20 11/08/20 11/08/20 History levofloxacin 750 mg PO DAILY 11/08/20 11/08/20 11/08/20 History Allergies Allergy/AdvReac Type Severity Reaction Status Date / Time metformin Allergy ADR-Dry Verified 10/20/20 14:24 Mucus Membranes Penicillins Allergy ALGY-Anaphy Verified 10/20/20 14:24 laxis Sulfa (Sulfonamide Allergy ALGY-Anaphy Verified 10/20/20 14:24 Antibiotics) laxis PFSH Acute PFSH: Medical History (Updated 11/09/20 @ 02:54 by Gladys Salcedo MD) Acute on chronic diastolic (congestive) heart failure Benign essential hypertension with target blood pressure below 140/90 Chronic respiratory failure with hypoxia and hypercapnia COPD (chronic obstructive pulmonary disease) Depression Diastolic congestive heart failure Hyperlipidemia Hypertension Moderate to severe mitral regurgitation Nonischemic cardiomyopathy Obesity Obesity hypoventilation syndrome Obstructive sleep apnea Pulmonary hypertension Restrictive lung disease Seizure disorder Sleep apnea Tricuspid regurgitation Type 2 diabetes mellitus Surgical History H/O mitral valve replacement History of Ulnar nerve compression Family History Brother CAD (coronary artery disease) Sister CAD (coronary artery disease) Grandmother Diabetes Mother Stroke Denies family history of Clotting disorder Dementia Chronic kidney disease (CKD) Suicide Anesthesia complication Bleeding disorder Lung disease Cancer Social History Smoking and tobacco status: current every day smoker cigarettes Years cigarettes smoked: 30 [ Other cigarette details: Hx of 1PPD x 30 Years ] Second hand smoke exposure: Yes Smoking risk assessment/counseling performed?: Yes Alcohol intake: never Counseling given: No Counseling given: No Caregiver/support person: Yes Lives independently: No Housing: Assisted Living Facility Marital status: / Current occupational status: retired and disabled History of recent travel: No Current gender identity: Female Vitals/I&O/Wt Last Vital Signs Temp 100.2 F H 11/08/20 19:55 Pulse 87 11/08/20 22:24 Resp 14 11/08/20 22:24 BP 145/107 11/08/20 22:24 Pulse Ox 93 11/08/20 22:24 Weight last 48 hrs Weight 95.254 kg Physical Exam Narrative: EXAM NARRATIVE: General: No acute distress, AO x3 HEENT: PERRLA, pupils bilaterally equal and reactive, pallors not present Chest: Normal vesicular breath sounds, no added sounds, equal good air entry bilaterally CVS: S1-S2 regular, no murmurs, no tachycardia, no gallops, no rubs Abdomen: Soft, nontender, no organomegaly, bowel sounds present Neuro: No focal deficits, no facial deformity, AO x3, power 5/5 in all limbs Data : 11/08/20 20:11 11/08/20 20:11 Other Labs: Laboratory Results WBC 24.2 10^3/uL (4.0-10.0) H 11/08/20 20:11 RBC 4.57 10^6/uL (4.1-5.3) 11/08/20 20:11 Hgb 12.8 g/dL (11.5-15.3) 11/08/20 20:11 Hct 40.9 % (37.0-47.0) 11/08/20 20:11 MCV 89.5 fl (81-99) 11/08/20 20:11 MCH 28.0 pg (28.0-34.0) 11/08/20 20:11 MCHC 31.3 g/dL (30.0-36.0) 11/08/20 20:11 RDW 15.0 % (12.1-15.1) 11/08/20 20:11 Plt Count 213 10^3/cmm (130-400) 11/08/20 20:11 MPV 11.1 fL (7.4-10.4) H 11/08/20 20:11 Neut % (Auto) 92.1 % 11/08/20 20:11 Lymph % (Auto) 1.9 % 11/08/20 20:11 Winston % (Auto) 4.9 % 11/08/20 20:11 Eos % (Auto) 0.2 % 11/08/20 20:11 Baso % (Auto) 0.2 % 11/08/20 20:11 Neut # (Auto) 22.25 10^3/uL (1.8-7.7) H 11/08/20 20:11 Lymph # (Auto) 0.5 10^3/uL (0.8-4.8) L 11/08/20 20:11 Winston # (Auto) 1.2 10^3/uL (0.2-0.9) H 11/08/20 20:11 Eos # (Auto) 0.0 10^3/uL (0.0-0.8) 11/08/20 20:11 Baso # (Auto) 0.1 10^3/uL (0.0-0.1) 11/08/20 20:11 Nucleated RBC % (auto) 0 % 11/08/20 20:11 Nucleated RBCs # 0.0 /100WBC 11/08/20 20:11 D-Dimer 3.36 ug/mIFEU (0-0.59) H 11/08/20 20:11 Sodium 136 mmol/L (136-145) 11/08/20 20:11 Potassium 4.0 mmol/L (3.5-5.1) 11/08/20 20:11 Chloride 96 mmol/L (98-107) L 11/08/20 20:11 Carbon Dioxide 28 mmol/L (22-29) 11/08/20 20:11 Anion Gap 16.0 (5-19) 11/08/20 20:11 BUN 14 mg/dL (8-23) 11/08/20 20:11 Creatinine 0.9 mg/dL (0.5-0.9) 11/08/20 20:11 GFR Calculation 62.5 mL/min (90-130) L 11/08/20 20:11 Glucose 139 mg/dL (65-115) H 11/08/20 20:11 Calculated Osmolality 285 mOsm/kg (285-295) 11/08/20 20:11 Lactic Acid 1.1 mmol/L (0.5-2.2) 11/08/20 20:11 Calcium 8.7 mg/dL (8.5-10.5) 11/08/20 20:11 Total Bilirubin 0.4 mg/dL (0.15-1.2) 11/08/20 20:11 AST 24 U/L (0-32) 11/08/20 20:11 ALT 16 U/L (0-33) 11/08/20 20:11 Alkaline Phosphatase 83 IU/L (35-105) 11/08/20 20:11 C-Reactive Protein 205.5 mg/L (0.0-4.9) H 11/08/20 20:11 NT-Pro-B Natriuret Pep 1088 pg/mL (0-125) H 11/08/20 20:11 Total Protein 6.4 g/dL (6.6-8.7) L 11/08/20 20:11 Albumin 3.0 g/dL (3.5-5.2) L 11/08/20 20:11 Globulin 3.4 g/dL (1.3-4.6) 11/08/20 20:11 Procalcitonin 0.47 ng/mL (0-0.5) 11/08/20 20:11 Impressions Chest X-Ray 11/08/20 19:49 IMPRESSION: Patchy bilateral mixed interstitial airspace infiltrates somewhat less localized on the right compared to prior exam. Chest CTA 11/08/20 20:42 IMPRESSION: Bilateral patchy ground-glass opacity seen in the upper lobes compatible with bilateral upper lobe interstitial pneumonia. There has been improvement in aeration in the right upper lobe but worsening infiltrates in the left upper lobe. Radiation Dose CTDIVOL = (mGy): DLP = 538.74 (mGy-cm) Micro: Microbiology 11/08/20 23:00 Blood Culture - Preliminary Blood SPECIMEN COLLECTED 11/08/20 23:06 Blood Culture - Preliminary Blood SPECIMEN COLLECTED A&P Assessment and plan (1) COVID-19: Remdisivir 200mg iv x 1 followed by 100mg iv daily dexamethasone 6mg IVP daily duoneb q6h, budesonide q12h empiric Cefepime and vancomycin check procal , MRSA nares, sputum cx Flutter valve/spirometer at bedside trend inflammatory markers including CRP, LDH, D dimer, Ferritin CTA PE negative for PE Status: Acute (2) Pneumonia: Status: Acute Attestations Medical Necessity Statement*: >2midnight admission for management of COVID 19 pneumonia Coding Level of Care Code 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
--- NOTE | 2020-11-09 00:49 | PC.PHAR ---
Pharmacokinetic dosing service Date: 11/09/20 Time: 29 Objective: Patient: Yaquelin Loera Floor: ed Age: 65 yo Serum creatinine: 0.9 mg/dL Height: 56.0 Inches Weight (kg): 95.254 Diagnosis: Relevant medical/social history: Cultures and sensitivities: Other labs: Assessment: IBW (kg): 42.47 Dosing wt(kg): 95.254 Estimated Creatinine clearance (ml/min): 40.7 CRCL method: Cockcroft and Gault using ibw(default). Drug selected: Vancomycin Loading dose (mg): 0 Vd (liters): 85.7 (factor used: 0.9 L/kg) Saeid (hr-1): 0.038 Half life (hrs): 18.24 Recommended dose: 1500 mg Interval: 24 hrs Infusion time (hrs): 1.5 Predicted peak (mcg/mL): 28.4 Predicted trough (mcg/mL): 12.08 Total body weight is being used for vancomycin dosing. Renal function is stable [ ] /unstable [ ] Recommendations: Give Vancomycin 1500 mg q 24 hrs with an expected Cpeak of 28.4 mcg/ml and an expected Ctrough of 12.08 mcg/ml Renal dosing of other antibiotics (review renal dosing of other medications and list guidelines here): Thank you for the consult, will continue to follow. Signature: Yolie Howard [facility]
[2020-11-09 01:04] LABS: Procalcitonin 0.47 ng/mL (0-0.5)
[2020-11-09] MEDS: vancomycin 1,500 MG/300 ML PIGGYBACK 200 MG IV (01:26)
[2020-11-09] MEDS: ondansetron 2 mg/ML SDV 2 mL 4 MG IVP (03:00)
[2020-11-09] MEDS: remdesivir 200 MG in sodium chloride 0.9% (100 ml) 100 ML 100 MG IV (03:00)
[2020-11-09] MEDS: enoxaparin 40 mg/0.4 mL Syringe SUBCUT (05:51)
[2020-11-09] MEDS: saline nasal spray 44mL Btl 1 SPRAY NASAL ×2 (05:52→21:23)
[2020-11-09] MEDS: ipratropium-albuterol 3 mL Neb INHALATION ×5 (08:05→20:45)
[2020-11-09] MEDS: budesonide 0.5 mg/2 mL Neb INHALATION ×2 (08:05→20:45)
[2020-11-09] MEDS: venlafaxine ER (24HR) 75 mg Capsule PO (08:26)
[2020-11-09] MEDS: gabapentin 300 mg Capsule PO ×2 (08:26→21:20)
[2020-11-09] MEDS: levETIRAcetam 500 mg Tablet PO ×2 (08:26→18:51)
[2020-11-09] MEDS: roflumilast 500 mcg Tablet PO (08:27)
[2020-11-09 08:36] LABS: Glucose Point of Care 291 mg/dL (70-110)
--- NOTE | 2020-11-09 09:20 | PC.NURSE ---
Patient complains of jefe itching/burning Patient requested that nurse assist with cleaning patient's jefe area due to itching/burning sensation, believed to be from frequent diarrhea. Upon cleaning the jefe area with a damp cloth, this nurse noticed severe redness of the skin with a yeast like substance present.
[2020-11-09] MEDS: midodrine 5 mg TABLET 10 MG PO ×3 (11:06→21:21)
[2020-11-09] MEDS: cefepime 2,000 MG in sodium chloride 0.9% (plus) 50 ML 100 MG IV ×2 (11:12→23:09)
[2020-11-09 11:28] LABS: C Reactive Protein 192.8 mg/L (0.0-4.9)
[2020-11-09 11:35] LABS: Procalcitonin 0.52 ng/mL (0-0.5)
--- NOTE | 2020-11-09 11:39 | PC.NURSE ---
Addendum to previous note This nurse assisted patient to beside commode to urinate and upon patient cleaning her jefe area, the patient stated that she remembered that she had put diaper rash paste around her jefe area to assist with the burning/ itching.
--- NOTE | 2020-11-09 11:48 | PM.PN ---
Subjective Subjective: Interval history: Patient was seen this morning, she is in the emergency room, waiting a bed onto weight, she is on 3-1/2 L, she is complaining of shortness of breath, her blood pressures are a bit soft, blood pressure cuff was changed, to adult regular size, her blood pressures were in the 120/70, no chest pain reported, no lightheadedness, dizziness, no nausea, no vomiting Vitals/I&O/Wt Last Vital Signs Temp 100.2 F H 11/08/20 19:55 Pulse 84 11/09/20 08:33 Resp 21 H 11/09/20 08:33 BP 96/50 11/09/20 08:33 Pulse Ox 98 11/09/20 08:33 11/08/20 11/09/20 11/09/20 22:59 06:59 14:59 Intake Total 1500 / 1500 Balance 1500 / 1500 Weight last 48 hrs Weight 95.254 kg Physical Exam Const: COMMON NORMALS: no acute distress and patient oriented x3 Resp: COMMON NORMALS: normal respiratory effort, No retractions and No use of accessory muscles AUSCULTATION: diminished lung sounds diffuse Cardio: COMMON NORMALS: regular rate, regular rhythm, S1 normal heart sound present and S2 normal heart sound present RATE: regular rate RHYTHM: regular rhythm HEART SOUNDS: S1 normal heart sound present and S2 normal heart sound present GI: COMMON NORMALS: Normal to inspection, nondistended, normoactive bowel sounds present, Soft to palpation and non-tender PALPATION: Yes Soft to palpation Extremity: COMMON NORMALS: no pedal edema Neuro: COMMON NORMALS: patient oriented x3 Psych: COMMON NORMALS: mental status grossly normal Data : 11/08/20 20:11 11/08/20 20:11 Micro: Microbiology 11/08/20 23:00 Blood Culture - Preliminary Blood SPECIMEN COLLECTED 11/08/20 23:06 Blood Culture - Preliminary Blood SPECIMEN COLLECTED A&P Assessment and plan (1) Acute and chronic respiratory failure ([id number]): -Chronic respiratory failure secondary to obesity hypoventilation syndrome, restrictive lung disease, small airway disease, 2 L oxygen patent -Recently discharged from the hospital for right upper lobe pneumonia, with sepsis, treated with IV antibiotics, transition to oral antibiotics -Now comes back with worsening shortness of breath, requiring 3.5 L, COVID-19 positive, WBC 24.2, neutrophilic, pro-Juwan 0.52, CT angiogram of the chest shows bilateral patchy groundglass opacities seen in the upper lobes, improvement in aeration of the right upper lobe but worsening infiltrates in the left upper lobe -Esophagus is dilated, she has recurrent infiltrates in the right upper and left upper lobe, highly suspicious for aspiration events -Acute worsening likely secondary to COVID-19, recurrent pneumonia, likely aspiration pneumonia, aspiration events Plan: -Admit to Covid unit -Aspiration precautions -We will have speech therapy evaluate patient -Oxygen therapy, BiPAP schedule during the night -Broad-spectrum antibiotic therapy vancomycin, cefepime -Continue Decadron 6 mg IV push daily -Remdesivir day 1 of 5 -Vitamin C, zinc, vitamin D -Incentive spirometer, flutter valve -Aspergillus, fungal studies ordered, blood cultures, bacterial antigens, sputum cultures - albuterol, budesonide, Daliresp -BNP is elevated, continue home bumetanide -Blood pressure is a bit soft, start midodrine -Full code -Lovenox for DVT prophylaxis Type 2 diabetes mellitus -Continue insulin sliding scale -Levemir 10 units at bedtime Peripheral neuropathy, continue gabapentin Diastolic CHF, continue bumetanide Status: Acute (2) COVID-19: Status: Acute (3) Pneumonia: Status: Acute (4) Right upper lobe pneumonia: Status: Acute Qualifiers: Pneumonia type: due to unspecified organism Qualified Code(s): J18.9 - Pneumonia, unspecified organism (5) Small airways disease: Status: Acute (6) Nicotine addiction: Status: Acute (7) Benign essential hypertension with target blood pressure below 140/90: Status: Acute (8) Decompensated COPD with exacerbation (chronic obstructive pulmonary disease): Status: Acute (9) Moderate to severe mitral regurgitation: Status: Acute (10) Acute diastolic heart failure: Status: Acute Attestations Medical Necessity Statement*: Patient requires hospitalization for acute on chronic respiratory failure secondary COVID-19, aspiration ammonia, pneumonia Coding Level of Care Code 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
[2020-11-09 11:55] LABS: Erythrocyte Sedimentation Rate 90 mm/hr (0-15)
[2020-11-09 12:20] LABS: Lactic Sepsis W/Reflex 1.6 mmol/L (0.5-2.2)
--- NOTE | 2020-11-09 13:45 | PC.NURSE ---
patient to room at this time from ED. Pt oriented to room, call light in reach. Patient assisted to BSC, gait steady.
--- NOTE | 2020-11-09 13:55 | PC.NURSE ---
Report received by Toni in ER. Pt arrived to the floor, VS all stable and WNL. Pt oriented to room and call bowman. Pt has no complaints at this time. Pt was not given morning meds or insulin at noon, blood sugar was not checked prior to receiving pt from ER. Nurse will check blood sugar and continue to monitor pt.
[2020-11-09 16:49] LABS: Glucose Point of Care 161 mg/dL (70-110)
[2020-11-09] MEDS: ascorbic acid 500 mg Tablet PO (18:15)
--- NOTE | 2020-11-09 19:37 | PC.NURSE ---
Shift Note Frequent safety and comfort rounds continue. Orders and/or nursing care completed as indicated. Patient monitored for response to intervention and treatment(s). Education provided includes treatment plan. Patient and/or medical collections representative verbalizes understanding Will continue to monitor.
[2020-11-09] MEDS: dexamethasone 4 mg/mL INJ 6 MG IVP (21:00)
[2020-11-09] MEDS: atorvastatin 40 mg Tablet 80 MG PO (21:20)
[2020-11-10] VITALS (14 sets, daily range): BP systolic 91–112; BP diastolic 61–71; PULSE 70–85; RESP 12–20; TEMP 36.5–37; O2SAT 92–99
[2020-11-10] MEDS: vancomycin 1,500 MG/300 ML PIGGYBACK 150 MG IV (01:33)
[2020-11-10] MEDS: enoxaparin 40 mg/0.4 mL Syringe SUBCUT (06:07)
[2020-11-10] MEDS: roflumilast 500 mcg Tablet PO (06:07)
[2020-11-10] MEDS: venlafaxine ER (24HR) 75 mg Capsule PO (06:07)
[2020-11-10] MEDS: remdesivir 100 MG in sodium chloride 0.9% (100 ml) 100 ML IV (06:08)
[2020-11-10] MEDS: acetaminophen 325 mg Tablet 650 MG PO (06:17)
--- NOTE | 2020-11-10 07:00 | XR_ITS ---
WS: [id number] Exam: XR chest 1V portable [id number] Date/Time of Exam: 11/10/2020 6:12 AM Reason For Exam: sob Comparison 11/08/2020. Patchy groundglass infiltrates seen in the lower two thirds of the right lung as well as the left upp er lobe and probably the left lower lobe. The heart is enlarged. No pneumothorax. No obvious pleural effusion. The mediastinum is not widened. Regional bony structures are intact. XR/XR chest 1V portable [id number] IMPRESSION: 1. Bilateral pulmonary infiltrates showing little change since prior study.
[2020-11-10 07:03] LABS: Basophils % 0.1 %; Hemoglobin 11.9 g/dL (11.5-15.3); Lymphocytes # 0.7 10^3/uL (0.8-4.8); Lymphocytes % 3.5 %; Mean Corpuscular HGB Conc 30.5 g/dL (30.0-36.0); Mean Corpuscular Hemoglobin 27.5 pg (28.0-34.0); Mean Corpuscular Volume 90.3 fl (81-99); Mean Platelet Volume 11.7 fL (7.4-10.4); Monocytes # 0.8 10^3/uL (0.2-0.9); Neutrophils # 18.65 10^3/uL (1.8-7.7); Neutrophils % 91.7 %; Nucleated Red Blood Cells % 0 %; Platelet Count 223 10^3/cmm (130-400); Red Blood Count 4.32 10^6/uL (4.1-5.3); Red Cell Distribution Width 15.3 % (12.1-15.1); White Blood Count 20.4 10^3/uL (4.0-10.0)
[2020-11-10 07:15] LABS: INR 1.03 (0.8-1.2)
[2020-11-10 07:27] LABS: Lactate (Lactic Acid level) 0.7 mmol/L (0.5-2.2)
[2020-11-10 07:30] LABS: Alanine Aminotransferase 20 U/L (0-33); Albumin Level 2.9 g/dL (3.5-5.2); Alkaline Phosphatase 79 IU/L (35-105); Anion Gap 14.8 (5-19); Aspartate Amino Transferase 32 U/L (0-32); Blood Urea Nitrogen 17 mg/dL (8-23); Calcium 8.4 mg/dL (8.5-10.5); Carbon Dioxide 27 mmol/L (22-29); Chloride 104 mmol/L (98-107); Globulin 3.1 g/dL (1.3-4.6); Glomerular Filtration Rate 83.5 mL/min (90-130); Glucose 177 mg/dL (65-115); Magnesium 2.3 mg/dL (1.7-2.3); Osmolality Calculated 300 mOsm/kg (285-295); Phosphorus 3.2 mg/dL (2.5-4.5); Potassium 3.8 mmol/L (3.5-5.1); Sodium 142 mmol/L (136-145); Total Bilirubin 0.2 mg/dL (0.15-1.2)
[2020-11-10 08:01] LABS: NT Pro B Type Natriuretic Pept 1323 pg/mL (0-125); Procalcitonin 0.83 ng/mL (0-0.5)
[2020-11-10] MEDS: midodrine 5 mg TABLET 10 MG PO ×3 (08:05→20:32)
[2020-11-10] MEDS: levETIRAcetam 500 mg Tablet PO ×2 (08:05→20:33)
[2020-11-10] MEDS: bumetanide 1 mg Tablet PO (08:05)
[2020-11-10] MEDS: pantoprazole DR 40 mg Tablet PO (08:05)
[2020-11-10] MEDS: ascorbic acid 500 mg Tablet PO ×2 (08:05→17:28)
[2020-11-10] MEDS: cholecalciferol (vitamin D3) 1,000 unit Tablet 1000 UNIT PO (08:05)
[2020-11-10] MEDS: gabapentin 300 mg Capsule PO ×2 (08:05→20:56)
[2020-11-10] MEDS: aspirin 81 mg EC Tablet PO (08:05)
[2020-11-10] MEDS: zinc gluconate 50 mg Tablet PO (08:05)
[2020-11-10 08:12] LABS: Creatine Phosphokinase 27 U/L (26-192)
[2020-11-10] MEDS: budesonide 0.5 mg/2 mL Neb INHALATION ×2 (08:44→20:24)
[2020-11-10] MEDS: ipratropium-albuterol 3 mL Neb INHALATION ×3 (08:44→20:24)
[2020-11-10] MEDS: bumetanide 0.25 mg/mL SDV 4 mL 1 MG IV ×2 (10:12→20:31)
[2020-11-10] MEDS: cefepime 2,000 MG in sodium chloride 0.9% (plus) 50 ML 100 MG IV ×2 (10:13→22:07)
[2020-11-10 11:23] LABS: Glucose Point of Care 264 mg/dL (70-110)
[2020-11-10 11:23] LABS: Glucose Point of Care 154 mg/dL (70-110)
[2020-11-10 11:49] LABS: Glucose Point of Care 188 mg/dL (70-110)
--- NOTE | 2020-11-10 13:12 | PM.PN ---
Subjective Subjective: Interval history: Patient was seen this morning, she tells me that she feels a bit better, no fevers, no cough, she is still short of breath, no lightheadedness, no dizziness Vitals/I&O/Wt Last Vital Signs Temp 97.8 F 11/10/20 08:00 Pulse 76 11/10/20 08:51 Resp 20 H 11/10/20 08:44 BP 98/62 11/10/20 08:00 Pulse Ox 99 11/10/20 08:44 11/09/20 11/10/20 11/10/20 22:59 06:59 14:59 Intake Total 240 / 290 350 / 640 390 / 390 Output Total 400 / 400 Balance 240 / 290 350 / 640 -10 / -10 Weight last 48 hrs Weight 95.254 kg Weight 95.254 kg Physical Exam Const: COMMON NORMALS: no acute distress and patient oriented x3 Resp: COMMON NORMALS: normal respiratory effort, No retractions, No use of accessory muscles and clear to auscultation bilaterally AUSCULTATION: clear to auscultation bilaterally Cardio: COMMON NORMALS: regular rate, regular rhythm, S1 normal heart sound present and S2 normal heart sound present RATE: regular rate RHYTHM: regular rhythm HEART SOUNDS: S1 normal heart sound present and S2 normal heart sound present GI: COMMON NORMALS: Normal to inspection, nondistended, normoactive bowel sounds present, Soft to palpation and non-tender PALPATION: Yes Soft to palpation Extremity: NARRATIVE EXTREMITY EXAM: 1+ pedal edema Neuro: COMMON NORMALS: patient oriented x3 Psych: COMMON NORMALS: mental status grossly normal Data : 11/10/20 06:20 11/10/20 06:20 Micro: Microbiology 11/08/20 23:00 Blood Culture - Preliminary Blood NEGATIVE TO DATE 11/08/20 23:06 Blood Culture - Preliminary Blood NEGATIVE TO DATE 11/09/20 18:20 Stool Lactoferrin - Final Stool C.difficile Toxin B Gene (PCR) - Final Occult Blood (FIT) - Final A&P Assessment and plan (1) Acute and chronic respiratory failure ([id number]): -Chronic respiratory failure secondary to obesity hypoventilation syndrome, restrictive lung disease, small airway disease, 2 L oxygen patent -Recently discharged from the hospital for right upper lobe pneumonia, with sepsis, treated with IV antibiotics, transition to oral antibiotics -Now comes back with worsening shortness of breath, requiring 3.5 L, COVID-19 positive, WBC 20.4, neutrophilic, pro-Juwan 0.83, CRP 183, CT angiogram of the chest shows bilateral patchy groundglass opacities seen in the upper lobes, improvement in aeration of the right upper lobe but worsening infiltrates in the left upper lobe -Esophagus is dilated, she has recurrent infiltrates in the right upper and left upper lobe, highly suspicious for aspiration events -Acute worsening likely secondary to COVID-19, recurrent pneumonia, likely aspiration pneumonia, aspiration events Plan: -Admit to Covid unit -Aspiration precautions -We will have speech therapy evaluate patient -Oxygen therapy, BiPAP schedule during the night -Broad-spectrum antibiotic therapy vancomycin, cefepime -Continue Decadron 6 mg IV push daily -Remdesivir day 1 of 5 -Given evidence of fluid overload today, increase Bumex to 1 mg every 12 hours for 2 doses -Vitamin C, zinc, vitamin D -Incentive spirometer, flutter valve -Aspergillus, fungal studies ordered, blood cultures, bacterial antigens, sputum cultures - albuterol, budesonide, Daliresp -Blood pressure is a bit soft, continue midodrine -Full code -Lovenox for DVT prophylaxis Type 2 diabetes mellitus -Continue insulin sliding scale -Levemir 10 units at bedtime Peripheral neuropathy, continue gabapentin Diastolic CHF, continue Bumex, cardiac echo Plan for today add Bumex, continue Decadron, nausea, broad-spectrum antibiotic therapy, clinically monitor Status: Acute (2) COVID-19: Status: Acute (3) Pneumonia: Status: Acute (4) Right upper lobe pneumonia: Status: Acute Qualifiers: Pneumonia type: due to unspecified organism Qualified Code(s): J18.9 - Pneumonia, unspecified organism (5) Small airways disease: Status: Acute (6) Nicotine addiction: Status: Acute (7) Benign essential hypertension with target blood pressure below 140/90: Status: Acute (8) Decompensated COPD with exacerbation (chronic obstructive pulmonary disease): Status: Acute (9) Moderate to severe mitral regurgitation: Status: Acute (10) Acute diastolic heart failure: Status: Acute Attestations Medical Necessity Statement*: Patient requires hospitalization for acute respiratory failure secondary COVID-19 pneumonia Coding Level of Care Code 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
[2020-11-10 17:14] LABS: Glucose Point of Care 208 mg/dL (70-110)
--- NOTE | 2020-11-10 18:40 | PC.NURSE ---
Shift Note Frequent safety and comfort rounds continue. Orders and/or nursing care completed as indicated. Patient monitored for response to intervention and treatment(s). Education provided includes treatment plan and medications. Patient and/or appliance service representative verbalizes understanding. Pt has had an uneventful day today with no complaints. Will continue to monitor.
[2020-11-10 20:03] LABS: Glucose Point of Care 167 mg/dL (70-110)
[2020-11-10] MEDS: dexamethasone 4 mg/mL INJ 6 MG IVP (20:30)
[2020-11-10] MEDS: atorvastatin 40 mg Tablet 80 MG PO (20:32)
[2020-11-10] MEDS: saline nasal spray 44mL Btl 1 SPRAY NASAL (20:54)
[2020-11-11] VITALS (11 sets, daily range): BP systolic 98–125; BP diastolic 39–74; PULSE 71–89; RESP 17–24; TEMP 35.9–36.9; O2SAT 91–97
[2020-11-11 00:47] LABS: Basophils % 0.1 %; Hematocrit 40.5 % (37.0-47.0); Hemoglobin 12.5 g/dL (11.5-15.3); Lymphocytes # 0.6 10^3/uL (0.8-4.8); Lymphocytes % 3.3 %; Mean Corpuscular HGB Conc 30.9 g/dL (30.0-36.0); Mean Corpuscular Hemoglobin 27.7 pg (28.0-34.0); Mean Corpuscular Volume 89.6 fl (81-99); Mean Platelet Volume 10.7 fL (7.4-10.4); Monocytes # 0.8 10^3/uL (0.2-0.9); Monocytes % 4.5 %; Neutrophils # 16.72 10^3/uL (1.8-7.7); Neutrophils % 91.4 %; Nucleated Red Blood Cells % 0 %; Platelet Count 271 10^3/cmm (130-400); Red Blood Count 4.52 10^6/uL (4.1-5.3); Red Cell Distribution Width 15.6 % (12.1-15.1); White Blood Count 18.3 10^3/uL (4.0-10.0)
[2020-11-11 01:13] LABS: INR 0.99 (0.8-1.2)
[2020-11-11 01:17] LABS: Alanine Aminotransferase 22 U/L (0-33); Albumin Level 3.1 g/dL (3.5-5.2); Alkaline Phosphatase 83 IU/L (35-105); Anion Gap 12.1 (5-19); Aspartate Amino Transferase 29 U/L (0-32); Blood Urea Nitrogen 16 mg/dL (8-23); C Reactive Protein 110.6 mg/L (0.0-4.9); Calcium 8.9 mg/dL (8.5-10.5); Carbon Dioxide 31 mmol/L (22-29); Chloride 102 mmol/L (98-107); Globulin 3.5 g/dL (1.3-4.6); Glomerular Filtration Rate 83.5 mL/min (90-130); Glucose 121 mg/dL (65-115); Osmolality Calculated 296 mOsm/kg (285-295); Phosphorus 2.9 mg/dL (2.5-4.5); Potassium 3.1 mmol/L (3.5-5.1); Sodium 142 mmol/L (136-145); Total Bilirubin 0.3 mg/dL (0.15-1.2); Total Protein 6.6 g/dL (6.6-8.7)
[2020-11-11 01:18] LABS: Lactate (Lactic Acid level) 1.1 mmol/L (0.5-2.2)
[2020-11-11 01:30] LABS: Vancomycin Trough 14.9 ug/mL (10-15)
[2020-11-11 01:40] LABS: NT Pro B Type Natriuretic Pept 1237 pg/mL (0-125); Procalcitonin 0.79 ng/mL (0-0.5)
[2020-11-11] MEDS: vancomycin 1,500 MG/300 ML PIGGYBACK 200 MG IV (01:54)
[2020-11-11 02:04] LABS: Creatine Phosphokinase 19 U/L (26-192)
[2020-11-11 04:43] LABS: ABG PH Result 7.39 (7.35-7.45); Arterial Blood Gas Hematocrit 38.1 % (37-47); Base Excess ABG 6.4 mmol/L (-2.0-2.0); Blood Gas Allen Test Pos; Blood Gas Sample Site Radial, right; Blood Gas Sample Type Arterial; HCO3 ABG 32.9 mmol/L (22-26)
[2020-11-11 04:44] LABS: Blood Gas Operator Identificat CN; Oxygen Device NC
[2020-11-11] MEDS: enoxaparin 40 mg/0.4 mL Syringe SUBCUT (05:10)
[2020-11-11] MEDS: remdesivir 100 MG in sodium chloride 0.9% (100 ml) 100 ML IV (05:17)
[2020-11-11] MEDS: roflumilast 500 mcg Tablet PO (06:19)
[2020-11-11] MEDS: gabapentin 300 mg Capsule PO ×2 (06:19→20:33)
[2020-11-11] MEDS: venlafaxine ER (24HR) 75 mg Capsule PO (06:19)
[2020-11-11] MEDS: levETIRAcetam 500 mg Tablet PO ×2 (06:19→18:13)
[2020-11-11] MEDS: saline nasal spray 44mL Btl 1 SPRAY NASAL ×2 (06:19→20:34)
[2020-11-11 07:03] LABS: Glucose Point of Care 185 mg/dL (70-110)
[2020-11-11] MEDS: ipratropium-albuterol 3 mL Neb INHALATION ×3 (08:15→21:10)
[2020-11-11] MEDS: pantoprazole DR 40 mg Tablet PO (08:15)
[2020-11-11] MEDS: midodrine 5 mg TABLET 10 MG PO ×3 (08:15→20:33)
[2020-11-11] MEDS: ascorbic acid 500 mg Tablet PO ×2 (08:15→17:09)
[2020-11-11] MEDS: budesonide 0.5 mg/2 mL Neb INHALATION ×2 (08:15→21:10)
[2020-11-11] MEDS: cholecalciferol (vitamin D3) 1,000 unit Tablet 1000 UNIT PO (08:15)
[2020-11-11] MEDS: aspirin 81 mg EC Tablet PO (08:15)
[2020-11-11] MEDS: cefepime 2,000 MG in sodium chloride 0.9% (plus) 50 ML 100 MG IV (08:15)
[2020-11-11] MEDS: zinc gluconate 50 mg Tablet PO (08:15)
[2020-11-11 09:01] LABS: ABG PCO2 52.8 mmHg (35-45); ABG PH Result 7.37 (7.35-7.45); Arterial Blood Gas Hematocrit 39.3 % (37-47); Base Excess ABG 3.6 mmol/L (-2.0-2.0); Blood Gas Allen Test Pos; Blood Gas Sample Site Radial, left; Blood Gas Sample Type Arterial; HCO3 ABG 30.2 mmol/L (22-26); Oxygen Device NC; PO2 ABG 83.8 mmHg (80.0-100.0)
[2020-11-11] MEDS: bumetanide 0.25 mg/mL SDV 4 mL 1 MG IV ×2 (10:06→20:37)
[2020-11-11] MEDS: potassium chloride premix 100 ML 25 MEQ IV (10:06)
[2020-11-11] MEDS: lidocaine 1% INJ 20 mL 5 ML IV (10:49)
[2020-11-11 11:44] LABS: Glucose Point of Care 298 mg/dL (70-110)
--- NOTE | 2020-11-11 11:44 | P.PN_ITS ---
Subjective Subjective: Interval history: Patient was seen this morning, she sitting up into her chair, she tells me that she continues to have diarrhea, but is feeling better, no fevers overnight, no swelling Vitals/I&O/Wt Last Vital Signs Temp 97.8 F 11/11/20 09:31 Pulse 89 11/11/20 09:31 Resp 18 11/11/20 09:31 BP 98/39 11/11/20 09:31 Pulse Ox 91 11/11/20 09:31 11/10/20 11/11/20 11/11/20 22:59 06:59 14:59 Intake Total 350 / 740 150 / 150 Output Total 450 / 850 Balance -100 / -110 150 / 150 Weight last 48 hrs Weight 95.254 kg Physical Exam Const: COMMON NORMALS: no acute distress and patient oriented x3 Resp: COMMON NORMALS: normal respiratory effort, No retractions, No use of accessory muscles and clear to auscultation bilaterally AUSCULTATION: clear to auscultation bilaterally Cardio: COMMON NORMALS: regular rate, regular rhythm, S1 normal heart sound present and S2 normal heart sound present RATE: regular rate RHYTHM: regular rhythm HEART SOUNDS: S1 normal heart sound present and S2 normal heart sound present GI: COMMON NORMALS: Normal to inspection, nondistended, normoactive bowel sounds present, Soft to palpation and non-tender PALPATION: Yes Soft to palpation Extremity: COMMON NORMALS: no pedal edema NARRATIVE EXTREMITY EXAM: 1+ pedal edema Neuro: COMMON NORMALS: patient oriented x3 Psych: COMMON NORMALS: mental status grossly normal Data : 11/11/20 00:40 11/11/20 00:40 Micro: Microbiology 11/09/20 18:20 Stool Lactoferrin - Final Stool Enteric Pathogens (PCR) - Final Parasite Antigen Panel - Final C.difficile Toxin B Gene (PCR) - Final Occult Blood (FIT) - Final 11/09/20 18:20 MRSA Culture - Final Nose A&P Assessment and plan (1) Acute and chronic respiratory failure ([id number]): -Chronic respiratory failure secondary to obesity hypoventilation syndrome, restrictive lung disease, small airway disease, 2 L oxygen patent -Recently discharged from the hospital for right upper lobe pneumonia, with sepsis, treated with IV antibiotics, transition to oral antibiotics -Now comes back with worsening shortness of breath, requiring 2 L L, COVID-19 positive, WBC 18.3, neutrophilic, pro-Juwan 0.79, CRP 110, CT angiogram of the chest shows bilateral patchy groundglass opacities seen in the upper lobes, improvement in aeration of the right upper lobe but worsening infiltrates in the left upper lobe -Esophagus is dilated, she has recurrent infiltrates in the right upper and left upper lobe, highly suspicious for aspiration events -Acute worsening likely secondary to COVID-19, recurrent pneumonia, likely aspiration pneumonia, aspiration events Plan: -Admit to Covid unit -Aspiration precautions -Oxygen therapy, BiPAP schedule during the night -Broad-spectrum antibiotic therapy cefepime, vancomycin has been discontinued as MRSA PCR was negative -Continue Decadron 6 mg IV push daily -Remdesivir day 2 of 5 -Given evidence of fluid continue Bumex to 1 mg every 12 hours for 2 doses, replace potassium -Vitamin C, zinc, vitamin D -Incentive spirometer, flutter valve -Aspergillus, fungal studies ordered, blood cultures, bacterial antigens, sputum cultures -Stool studies negative, negative for C. difficile - albuterol, budesonide, Daliresp -Blood pressure is a bit soft, continue midodrine -Full code -Lovenox for DVT prophylaxis Type 2 diabetes mellitus -Continue insulin sliding scale -Levemir 10 units at bedtime Peripheral neuropathy, continue gabapentin Diastolic CHF, continue Bumex, cardiac echo Plan for today continue Bumex, continue Decadron, remdesivir, continue cefepime, clinically monitor Status: Acute (2) COVID-19: Status: Acute (3) Pneumonia: Status: Acute (4) Right upper lobe pneumonia: Status: Acute Qualifiers: Pneumonia type: due to unspecified organism Qualified Code(s): J18.9 - Pneumonia, unspecified organism (5) Small airways disease: Status: Acute (6) Nicotine addiction: Status: Acute (7) Benign essential hypertension with target blood pressure below 140/90: Status: Acute (8) Decompensated COPD with exacerbation (chronic obstructive pulmonary disease): Status: Acute (9) Moderate to severe mitral regurgitation: Status: Acute (10) Acute diastolic heart failure: Status: Acute Attestations Medical Necessity Statement*: Patient requires hospitalization for acute respiratory failure secondary COVID-19 Coding Level of Care Code 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
[2020-11-11] MEDS: potassium chloride ER 20 mEq Tablet 40 MEQ PO (17:08)
--- NOTE | 2020-11-11 17:15 | PC.RESP ---
RT Shift Note Frequent safety and respiratory rounds continue. Orders completed as indicated. Patient monitored pre and post treatments throughout shift. Patient tolerated treatments appropriately. Condition did not change. Patient and/or escrow representative educated on respiratory treatment and medications. Patient and/or escrow representative verbalized understanding. Will continue to monitor patient progress.
[2020-11-11 17:27] LABS: Glucose Point of Care 106 mg/dL (70-110)
[2020-11-11 20:26] LABS: Glucose Point of Care 176 mg/dL (70-110)
[2020-11-11] MEDS: atorvastatin 40 mg Tablet 80 MG PO (20:33)
[2020-11-11] MEDS: dexamethasone 4 mg/mL INJ 6 MG IVP (20:35)
[2020-11-12] VITALS (14 sets, daily range): BP systolic 73–129; BP diastolic 43–84; PULSE 66–87; RESP 15–24; TEMP 36.3–36.8; O2SAT 92–97
[2020-11-12] MEDS: ipratropium-albuterol 3 mL Neb INHALATION ×4 (02:00→20:40)
[2020-11-12] MEDS: remdesivir 100 MG in sodium chloride 0.9% (100 ml) 100 ML IV (05:07)
[2020-11-12] MEDS: enoxaparin 40 mg/0.4 mL Syringe SUBCUT (05:07)
[2020-11-12 05:38] LABS: ABG PCO2 53.9 mmHg (35-45); ABG PH Result 7.41 (7.35-7.45); Base Excess ABG 7.4 mmol/L (-2.0-2.0); Blood Gas Allen Test Pos; Blood Gas Sample Site Radial, left; Blood Gas Sample Type Arterial; Oxygen Device NC; PO2 ABG 81.8 mmHg (80.0-100.0)
[2020-11-12] MEDS: levETIRAcetam 500 mg Tablet PO ×2 (06:13→18:20)
[2020-11-12] MEDS: saline nasal spray 44mL Btl 1 SPRAY NASAL ×2 (06:13→20:52)
[2020-11-12] MEDS: venlafaxine ER (24HR) 75 mg Capsule PO (06:13)
[2020-11-12] MEDS: roflumilast 500 mcg Tablet PO (06:13)
[2020-11-12] MEDS: gabapentin 300 mg Capsule PO ×2 (06:13→20:52)
--- NOTE | 2020-11-12 07:16 | PC.NURSE ---
Shift Note Frequent safety and comfort rounds continue. Orders and/or nursing care completed as indicated. Patient monitored for response to intervention and treatment(s). Education provided includes plan of care. Patient and/or office machines sales representative verbalized understanding. Will continue to monitor.
[2020-11-12 07:46] LABS: Glucose Point of Care 239 mg/dL (70-110)
[2020-11-12] MEDS: potassium chloride ER 20 mEq Tablet 40 MEQ PO (08:53)
[2020-11-12] MEDS: zinc gluconate 50 mg Tablet PO (08:53)
[2020-11-12] MEDS: pantoprazole DR 40 mg Tablet PO (08:53)
[2020-11-12] MEDS: aspirin 81 mg EC Tablet PO (08:54)
[2020-11-12] MEDS: cholecalciferol (vitamin D3) 1,000 unit Tablet 1000 UNIT PO (08:54)
[2020-11-12] MEDS: ascorbic acid 500 mg Tablet PO ×2 (08:54→18:20)
[2020-11-12] MEDS: midodrine 5 mg TABLET 10 MG PO ×2 (08:54→14:47)
[2020-11-12] MEDS: budesonide 0.5 mg/2 mL Neb INHALATION ×2 (09:32→20:40)
--- NOTE | 2020-11-12 10:24 | PC.NURSE ---
Dr. Booker in to see patient, discussed plan of care, new orders received for advance diet to consistent carb diet, and start loperamide PRN for diarrhea, verbalized understanding and denies further needs.
--- NOTE | 2020-11-12 10:32 | PC.SOCIAL ---
IMM Update Pg. 2 of IMM updated and reviewed with patient who verbalized understanding. Copy provided.
[2020-11-12] MEDS: loperamide 2 mg Capsule PO ×2 (10:36→18:20)
[2020-11-12 11:08] LABS: Basophils % 0.1 %; Hematocrit 43.1 % (37.0-47.0); Hemoglobin 13.1 g/dL (11.5-15.3); Lymphocytes # 0.8 10^3/uL (0.8-4.8); Lymphocytes % 9.4 %; Mean Corpuscular HGB Conc 30.4 g/dL (30.0-36.0); Mean Corpuscular Hemoglobin 27.4 pg (28.0-34.0); Mean Corpuscular Volume 90.2 fl (81-99); Mean Platelet Volume 10.9 fL (7.4-10.4); Monocytes # 0.8 10^3/uL (0.2-0.9); Neutrophils # 6.74 10^3/uL (1.8-7.7); Neutrophils % 80.9 %; Nucleated Red Blood Cells % 0 %; Platelet Count 281 10^3/cmm (130-400); Red Blood Count 4.78 10^6/uL (4.1-5.3); Red Cell Distribution Width 15.6 % (12.1-15.1); White Blood Count 8.3 10^3/uL (4.0-10.0)
[2020-11-12 11:16] LABS: Glucose Point of Care 315 mg/dL (70-110)
[2020-11-12 11:19] LABS: INR 1.01 (0.8-1.2)
[2020-11-12 11:32] LABS: Alanine Aminotransferase 20 U/L (0-33); Albumin Level 3.1 g/dL (3.5-5.2); Alkaline Phosphatase 79 IU/L (35-105); Anion Gap 16.9 (5-19); Aspartate Amino Transferase 19 U/L (0-32); Blood Urea Nitrogen 19 mg/dL (8-23); C Reactive Protein 47.2 mg/L (0.0-4.9); Calcium 8.5 mg/dL (8.5-10.5); Carbon Dioxide 29 mmol/L (22-29); Chloride 95 mmol/L (98-107); Globulin 3.7 g/dL (1.3-4.6); Glomerular Filtration Rate 71.5 mL/min (90-130); Glucose 325 mg/dL (65-115); Magnesium 1.9 mg/dL (1.7-2.3); Osmolality Calculated 299 mOsm/kg (285-295); Phosphorus 1.6 mg/dL (2.5-4.5); Potassium 3.9 mmol/L (3.5-5.1); Sodium 137 mmol/L (136-145); Total Bilirubin 0.4 mg/dL (0.15-1.2); Total Protein 6.8 g/dL (6.6-8.7)
[2020-11-12 11:33] LABS: Lactate (Lactic Acid level) 2.9 mmol/L (0.5-2.2)
[2020-11-12 12:06] LABS: NT Pro B Type Natriuretic Pept 889 pg/mL (0-125)
[2020-11-12 12:17] LABS: Creatine Phosphokinase 25 U/L (26-192)
--- NOTE | 2020-11-12 16:00 | PC.NURSE ---
Dr. Booker notified of reddened rash to abdominal folds, new orders received for nystatin powder, see MAR for further details.
[2020-11-12 16:47] LABS: Glucose Point of Care 144 mg/dL (70-110)
--- NOTE | 2020-11-12 16:53 | P.PN_ITS ---
Subjective Subjective: Interval history: Patient was seen this morning, she tells me that she continues to feel sick, but she is happy that she is on room air during the day, does need oxygen during the night, she does tell me her shortness of breath has improved, continues to have diarrhea Vitals/I&O/Wt Last Vital Signs Temp 97.7 F 11/12/20 15:54 Pulse 80 11/12/20 15:54 Resp 16 11/12/20 15:54 BP 119/64 11/12/20 15:54 Pulse Ox 97 11/12/20 15:54 11/12/20 11/12/20 11/12/20 06:59 14:59 22:59 Intake Total 350 / 1060 220 / 220 Output Total 1400 / 1900 500 / 500 Balance -1050 / -840 220 / 220 -500 / -280 Physical Exam Const: COMMON NORMALS: no acute distress and patient oriented x3 Resp: COMMON NORMALS: normal respiratory effort, No retractions, No use of accessory muscles and clear to auscultation bilaterally AUSCULTATION: clear to auscultation bilaterally Cardio: COMMON NORMALS: regular rate, regular rhythm, S1 normal heart sound present and S2 normal heart sound present RATE: regular rate RHYTHM: regular rhythm HEART SOUNDS: S1 normal heart sound present and S2 normal heart sound present GI: COMMON NORMALS: Normal to inspection, nondistended, normoactive bowel sounds present, Soft to palpation and non-tender PALPATION: Yes Soft to palpation Extremity: COMMON NORMALS: no pedal edema Neuro: COMMON NORMALS: patient oriented x3 Psych: COMMON NORMALS: mental status grossly normal Data : 11/12/20 10:58 11/12/20 10:58 Micro: Microbiology 11/11/20 14:37 Gram Stain - Final Sputum - Expectorated Sputum Sputum Culture - Preliminary 11/11/20 13:57 Bacterial Antigens - Final Urine,Voided A&P Assessment and plan (1) Acute and chronic respiratory failure ([id number]): -Chronic respiratory failure secondary to obesity hypoventilation syndrome, restrictive lung disease, small airway disease, 2 L oxygen patent -Recently discharged from the hospital for right upper lobe pneumonia, with sepsis, treated with IV antibiotics, transition to oral antibiotics - CT angiogram of the chest shows bilateral patchy groundglass opacities seen in the upper lobes, improvement in aeration of the right upper lobe but worsening infiltrates in the left upper lobe -Esophagus is dilated, she has recurrent infiltrates in the right upper and left upper lobe, highly suspicious for aspiration events -Acute worsening likely secondary to COVID-19, recurrent pneumonia, likely aspiration pneumonia, aspiration events Plan: -Admit to Covid unit -Currently on room air, 2 L during the night -Aspiration precautions -Oxygen therapy, BiPAP schedule during the night -On cefepime -Continue Decadron 6 mg IV push daily -Remdesivir day 3 of of 5 -Given evidence of fluid continue Bumex to 1 mg every 12 hours for 2 doses, replace potassium -Vitamin C, zinc, vitamin D -Incentive spirometer, flutter valve -Aspergillus, fungal studies ordered, blood cultures, bacterial antigens, sputum cultures -Stool studies negative, negative for C. difficile, loperamide for diarrhea - albuterol, budesonide, Daliresp -Stop midodrine -Full code -Lovenox for DVT prophylaxis Type 2 diabetes mellitus -Continue insulin sliding scale -Levemir 10 units at bedtime Peripheral neuropathy, continue gabapentin Diastolic CHF, hold Bumex, await cardiac echo, Plan for today continue Decadron, remdesivir, continue cefepime, clinically monitor, likely discharge 24 hours Status: Acute (2) COVID-19: Status: Acute (3) Pneumonia: Status: Acute (4) Right upper lobe pneumonia: Status: Acute Qualifiers: Pneumonia type: due to unspecified organism Qualified Code(s): J18.9 - Pneumonia, unspecified organism (5) Small airways disease: Status: Acute (6) Nicotine addiction: Status: Acute (7) Benign essential hypertension with target blood pressure below 140/90: Status: Acute (8) Decompensated COPD with exacerbation (chronic obstructive pulmonary disease): Status: Acute (9) Moderate to severe mitral regurgitation: Status: Acute (10) Acute diastolic heart failure: Status: Acute Attestations Medical Necessity Statement*: Patient requires hospitalization for acute respiratory failure secondary to COVID-19 Coding Level of Care Code 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
--- NOTE | 2020-11-12 18:19 | PC.RESP ---
RT Shift Note Frequent safety and respiratory rounds continue. Orders completed as indicated. Patient monitored pre and post treatments throughout shift. Patient tolerated treatments appropriately. Condition did not change. Patient and/or food service sales representatives educated on respiratory treatment and medications. Patient and/or food service sales representatives verbalized understanding. Will continue to monitor patient progress.
[2020-11-12] MEDS: nystatin powder 15 gm Btl 1 APPLIC TOPICAL (18:20)
[2020-11-12] MEDS: dexamethasone 4 mg/mL INJ 6 MG IVP (20:46)
[2020-11-12] MEDS: atorvastatin 40 mg Tablet 80 MG PO (20:46)
[2020-11-12 21:53] LABS: Glucose Point of Care 185 mg/dL (70-110)
[2020-11-13] VITALS (11 sets, daily range): BP systolic 91–128; BP diastolic 53–86; PULSE 68–84; RESP 16–18; TEMP 36–36.8; O2SAT 88–100
[2020-11-13] MEDS: ipratropium-albuterol 3 mL Neb INHALATION ×2 (02:35→08:58)
[2020-11-13] MEDS: enoxaparin 40 mg/0.4 mL Syringe SUBCUT (03:43)
[2020-11-13] MEDS: loperamide 2 mg Capsule PO ×2 (03:43→10:37)
[2020-11-13 05:37] LABS: Hemoglobin 12.3 g/dL (11.5-15.3); Lymphocytes # 0.7 10^3/uL (0.8-4.8); Lymphocytes % 7.6 %; Mean Corpuscular HGB Conc 30.8 g/dL (30.0-36.0); Mean Corpuscular Hemoglobin 27.1 pg (28.0-34.0); Mean Corpuscular Volume 88.1 fl (81-99); Mean Platelet Volume 11.6 fL (7.4-10.4); Monocytes # 0.7 10^3/uL (0.2-0.9); Neutrophils # 7.46 10^3/uL (1.8-7.7); Neutrophils % 83.7 %; Nucleated Red Blood Cells % 0 %; Platelet Count 237 10^3/cmm (130-400); Red Blood Count 4.54 10^6/uL (4.1-5.3); Red Cell Distribution Width 15.6 % (12.1-15.1); White Blood Count 8.9 10^3/uL (4.0-10.0)
[2020-11-13 06:10] LABS: Glucose Point of Care 177 mg/dL (70-110)
[2020-11-13 06:19] LABS: Alanine Aminotransferase 17 U/L (0-33); Albumin Level 2.9 g/dL (3.5-5.2); Alkaline Phosphatase 72 IU/L (35-105); Anion Gap 12.7 (5-19); Aspartate Amino Transferase 15 U/L (0-32); Blood Urea Nitrogen 20 mg/dL (8-23); C Reactive Protein 26.9 mg/L (0.0-4.9); Calcium 8.5 mg/dL (8.5-10.5); Carbon Dioxide 30 mmol/L (22-29); Chloride 102 mmol/L (98-107); Globulin 3.2 g/dL (1.3-4.6); Glomerular Filtration Rate 83.5 mL/min (90-130); Glucose 190 mg/dL (65-115); Magnesium 1.9 mg/dL (1.7-2.3); Osmolality Calculated 298 mOsm/kg (285-295); Phosphorus 2.5 mg/dL (2.5-4.5); Potassium 4.7 mmol/L (3.5-5.1); Sodium 140 mmol/L (136-145); Total Bilirubin 0.4 mg/dL (0.15-1.2); Total Protein 6.1 g/dL (6.6-8.7)
[2020-11-13] MEDS: roflumilast 500 mcg Tablet PO (06:24)
[2020-11-13] MEDS: venlafaxine ER (24HR) 75 mg Capsule PO (06:24)
[2020-11-13] MEDS: saline nasal spray 44mL Btl 1 SPRAY NASAL (06:24)
[2020-11-13] MEDS: levETIRAcetam 500 mg Tablet PO (06:24)
[2020-11-13] MEDS: gabapentin 300 mg Capsule PO (06:24)
[2020-11-13] MEDS: budesonide 0.5 mg/2 mL Neb INHALATION (08:58)
[2020-11-13 09:59] LABS: NT Pro B Type Natriuretic Pept 1003 pg/mL (0-125); Procalcitonin 0.18 ng/mL (0-0.5)
[2020-11-13] MEDS: potassium chloride ER 20 mEq Tablet 40 MEQ PO (10:23)
[2020-11-13] MEDS: remdesivir 100 MG in sodium chloride 0.9% (100 ml) 100 ML IV (10:23)
[2020-11-13] MEDS: FUROsemide 10 mg/mL SDV 4mL 40 MG IVP (10:24)
[2020-11-13] MEDS: aspirin 81 mg EC Tablet PO (10:24)
[2020-11-13] MEDS: cholecalciferol (vitamin D3) 1,000 unit Tablet 1000 UNIT PO (10:24)
[2020-11-13] MEDS: zinc gluconate 50 mg Tablet PO (10:24)
[2020-11-13] MEDS: pantoprazole DR 40 mg Tablet PO (10:24)
[2020-11-13] MEDS: ascorbic acid 500 mg Tablet PO (10:24)
--- NOTE | 2020-11-13 11:54 | P.DS_ITS ---
Discharge Providers Date of Admission: 11/09/20 00:20 Date of Discharge: November 13, 2020 Attending Provider at Admission: Gladys Salcedo MD Attending Provider at Discharge: Matthias Booker MD Primary Care Provider: Tashi Acosta MD Diagnoses at Discharge Discharge Diagnosis (1) Acute and chronic respiratory failure ([id number]): Status: Acute (2) COVID-19: Status: Acute (3) Pneumonia: Status: Acute (4) Right upper lobe pneumonia: Status: Acute Qualifiers: Pneumonia type: due to unspecified organism Qualified Code(s): J18.9 - Pneumonia, unspecified organism (5) Small airways disease: Status: Acute (6) Nicotine addiction: Status: Acute (7) Benign essential hypertension with target blood pressure below 140/90: Status: Acute (8) Decompensated COPD with exacerbation (chronic obstructive pulmonary disease): Status: Acute (9) Moderate to severe mitral regurgitation: Status: Acute (10) Acute diastolic heart failure: Status: Acute Reason for Visit Reason for Visit: AMS/COVID + Hospital Course Hospital Course This is a 65-year-old female with a history of Covid vaccination, history of restrictive lung disease, chronic hypercapnic respiratory failure, chronically on 2 L, obesity hypoventilation syndrome, small airway disease, recently admitted for community-acquired pneumonia, who presents to [facility] due to shortness of breath Patient was amended to [facility] for acute on chronic respiratory failure secondary to COVID-19 pneumonia breakthrough infection, and pneumonia and diastolic CHF exacerbation, she was managed in the Covid unit, received oxygen therapy, intermittent BiPAP therapy, broad-spectrum antibiotic therapy, remdesivir, Decadron, inhaler therapy, diuretic therapy and clinically monitored. Patient clinically improved, she is actually weaned down to room air, ambulating without significant symptomatology, remained afebrile. She was discharged after 4 days of remdesivir, discharged on inhaler therapy, doxycycline, vitamin replacement, albuterol, with close follow-up primary care provider as outpatient. Patient was also instructed to discuss with primary care provider about getting a booster vaccination when available, and late November. In terms of hypercoagulability prophylaxis for COVID-19, patient was advised that she has a risk of DVT and or PEs associate with COVID-19, no recent surgeries, no history of DVT or PE, her risk of hypercoagulability is low but that does not mean no risk, she should remain mobile, monitor for signs of DVT or PE if so go to emergency room. Nonetheless have discharged her on baby aspirin 81 mg daily. Patient was advised to continue to self isolate, socially distance, facemask, hand wash. She has fevers, worsening shortness of breath go to emergency room. Physical Exam Const: COMMON NORMALS: no acute distress and patient oriented x3 Resp: COMMON NORMALS: normal respiratory effort, No retractions, No use of accessory muscles and clear to auscultation bilaterally AUSCULTATION: clear to auscultation bilaterally Cardio: COMMON NORMALS: regular rate, regular rhythm, S1 normal heart sound present and S2 normal heart sound present RATE: regular rate RHYTHM: regular rhythm HEART SOUNDS: S1 normal heart sound present and S2 normal heart sound present GI: COMMON NORMALS: Normal to inspection, nondistended, normoactive bowel sounds present, Soft to palpation, non-tender, No hepatosplenomegaly present, no masses and no bruits PALPATION: Yes Soft to palpation and Yes No hepatosplenomegaly present Neuro: COMMON NORMALS: patient oriented x3 Psych: COMMON NORMALS: mental status grossly normal Discharge Data Data Completed and Pending: Completed Studies During Hospitalization Category Date Time Status CT angio chest PE protcl [id number] Urge nt Cat Scan 11/08/20 20:42 Completed XR chest 1V lanre ble [id number] Routine Exams 11/10/20 07:00 Completed XR chest 1V lanre ble [id number] Stat Exams 11/08/20 19:49 Completed Pending at discharge Category Date Time Status Aspergillus AG,EI A,Serum Stat Lab 11/09/20 11:58 Received Blood Culture Sta t Lab 11/08/20 23:00 Results C Reactive Protei n AM LABS Lab 11/14/20 04:00 Ordered C Reactive Protei n AM LABS Lab 11/15/20 04:00 Ordered Complete Blood Co unt w/Auto AM LABS Lab 11/14/20 04:00 Ordered Complete Blood Co unt w/Auto AM LABS Lab 11/15/20 04:00 Ordered Comprehensive Met abolic Panel AM LA BS Lab 11/14/20 04:00 Ordered Comprehensive Met abolic Panel AM LA BS Lab 11/15/20 04:00 Ordered Magnesium AM LABS Lab 11/14/20 04:00 Ordered Magnesium AM LABS Lab 11/15/20 04:00 Ordered Miscellaneous Jayda t Routine Lab 11/09/20 11:58 Received NT Pro B Type Kathryn riuretic Pept QAM Lab 11/14/20 06:00 Ordered NT Pro B Type Kathryn riuretic Pept QAM Lab 11/15/20 06:00 Ordered Phosphorus AM LAB S Lab 11/14/20 04:00 Ordered Phosphorus AM LAB S Lab 11/15/20 04:00 Ordered Procalcitonin AM LABS Lab 11/14/20 04:00 Ordered Procalcitonin AM LABS Lab 11/15/20 04:00 Ordered Sputum Culture an d Gram Stain Routi ne Lab 11/11/20 14:37 Results Labs from last 24 hours 11/13/20 11/13/20 11/13/20 06:05 04:32 04:32 WBC RBC Hgb Hct MCV MCH MCHC RDW Plt Count MPV Neut % (Auto) Lymph % (Auto) [place] % (Auto) Eos % (Auto) Baso % (Auto) Neut # (Auto) Lymph # (Auto) [place] # (Auto) Eos # (Auto) Baso # (Auto) Nucleated RBC % (a uto) Nucleated RBCs # Sodium 140 Potassium 4.7 Chloride 102 Carbon Dioxide 30 H Anion Gap 12.7 BUN 20 Creatinine 0.7 GFR Calculation 83.5 L Glucose 190 H POC Glucose 177 H Calculated Osmolal ity 298 H Calcium 8.5 Phosphorus 2.5 D Magnesium 1.9 Total Bilirubin 0.4 AST 15 ALT 17 Alkaline Phosphata se 72 Creatine Kinase C-Reactive Protein 26.9 H NT-Pro-B Natriuret Pep 1003 H Total Protein 6.1 L Albumin 2.9 L Globulin 3.2 Procalcitonin 0.18 11/13/20 11/12/20 11/12/20 04:32 20:15 16:43 WBC 8.9 RBC 4.54 Hgb 12.3 Hct 40.0 MCV 88.1 MCH 27.1 L MCHC 30.8 RDW 15.6 H Plt Count 237 MPV 11.6 H Neut % (Auto) 83.7 Lymph % (Auto) 7.6 [place] % (Auto) 8.0 Eos % (Auto) 0.0 Baso % (Auto) 0.0 Neut # (Auto) 7.46 Lymph # (Auto) 0.7 L [place] # (Auto) 0.7 Eos # (Auto) 0.0 Baso # (Auto) 0.0 Nucleated RBC % (a uto) 0 Nucleated RBCs # 0.0 Sodium Potassium Chloride Carbon Dioxide Anion Gap BUN Creatinine GFR Calculation Glucose POC Glucose 185 H 144 H Calculated Osmolal ity Calcium Phosphorus Magnesium Total Bilirubin AST ALT Alkaline Phosphata se Creatine Kinase C-Reactive Protein NT-Pro-B Natriuret Pep Total Protein Albumin Globulin Procalcitonin 11/12/20 10:58 WBC RBC Hgb Hct MCV MCH MCHC RDW Plt Count MPV Neut % (Auto) Lymph % (Auto) [place] % (Auto) Eos % (Auto) Baso % (Auto) Neut # (Auto) Lymph # (Auto) [place] # (Auto) Eos # (Auto) Baso # (Auto) Nucleated RBC % (a uto) Nucleated RBCs # Sodium Potassium Chloride Carbon Dioxide Anion Gap BUN Creatinine GFR Calculation Glucose POC Glucose Calculated Osmolal ity Calcium Phosphorus Magnesium Total Bilirubin AST ALT Alkaline Phosphata se Creatine Kinase 25 L C-Reactive Protein NT-Pro-B Natriuret Pep 889 H Total Protein Albumin Globulin Procalcitonin 0.30 Vitals: Last Vital Signs Temp 96.8 F L 11/13/20 11:24 Pulse 84 11/13/20 11:23 Resp 18 11/13/20 11:23 BP 128/70 11/13/20 11:23 Pulse Ox 97 11/13/20 11:23 Discharge Plan Discharge Patient Disposition: Home Condition: Stable Prescriptions: New pantoprazole 40 mg Tablet,Delayed Release (Dr/Ec) 40 mg PO DAILY 30 Days Qty: 30 RF: 0 ascorbic acid (vitamin C) [Vitamin C] 500 mg Tablet 500 mg PO BID 30 Days Qty: 60 RF: 0 aspirin 81 mg Tablet,Delayed Release (Dr/Ec) 81 mg PO DAILY 30 Days Qty: 30 RF: 0 cholecalciferol (vitamin D3) 25 mcg (1,000 unit) Tablet 1,000 unit PO DAILY 30 Days Qty: 30 RF: 0 zinc gluconate 50 mg Tablet 50 mg PO DAILY 30 Days Qty: 30 RF: 0 albuterol sulfate 90 mcg/actuation HFA aerosol inhaler 1 inh inhalation Q6H PRN (Reason: shortness of breath or wheezing) Qty: 8.5 RF: 0 doxycycline hyclate 100 mg tablet 100 mg PO BID 5 Days Qty: 10 RF: 0 loperamide 2 mg Capsule 2 mg PO QID PRN (Reason: Diarrhea) 15 Days Qty: 60 RF: 0 nystatin [Nystop] 100,000 unit/gram Powder 1 applic topical BID Qty: 30 RF: 0 Saccharomyces boulardii [Probiotic (S.boulardii)] 250 mg capsule 250 mg PO DAILY 30 Days Qty: 30 RF: 0 Continued Cough Drops See Rx Instructions .ROUTE .COMPLEX RF: 0 ondansetron 4 mg tablet,disintegrating 4 mg PO Q6H PRN (Reason: nausea and vomiting) Qty: 14 RF: 0 naproxen [Naprosyn] 500 mg tablet 500 mg PO BID PRN (Reason: pain) Qty: 20 RF: 0 Myrbetriq 25 mg tablet extended release 24 hr 25 mg PO DAILY@0700 RF: 0 promethazine-DM 6.25-15 mg/5 mL Syrup 5 ml PO Q6H PRN (Reason: Cough) RF: 0 bumetanide 1 mg tablet 1 mg PO DAILY Qty: 30 RF: 3 potassium chloride 20 mEq tablet extended release 20 meq PO DAILY Qty: 30 RF: 0 Tresiba FlexTouch U-100 100 unit/mL (3 mL) insulin pen 10 unit SUBCUT BEDTIME@2000 RF: 0 insulin aspart U-100 [Novolog U-100 Insulin aspart] 100 unit/mL solution See Rx Instructions .ROUTE .COMPLEX RF: 0 carbamide peroxide [Debrox] 6.5 % Drops See Rx Instructions .ROUTE .COMPLEX RF: 0 cholecalciferol (vitamin D3) [Vitamin D3] 25 mcg (1,000 unit) Tablet 25 mcg PO DAILY@0700 RF: 0 Januvia 100 mg Tablet 100 mg PO DAILY@0700 RF: 0 Flonase Sensimist 27.5 mcg/actuation [place],Suspension 1 spray INTRANASAL DAILY@0700 RF: 0 Daliresp 500 mcg tablet 500 mcg PO DAILY@0700 RF: 0 Trelegy Ellipta 100-62.5-25 mcg blister with device 1 inh inhalation DAILY RF: 0 Ozempic See Rx Instructions .ROUTE .COMPLEX RF: 0 ipratropium-albuterol 0.5 mg-3 mg(2.5 mg base)/3 mL Solution For Nebulization 3 ml INHALATION Q4H PRN (Reason: Shortness Of Breath) RF: 0 acetaminophen [Tylenol Extra Strength] 500 mg Tablet 1,000 mg PO Q4H MDD SEE PHARMACY LIST PRN (Reason: Pain) RF: 0 magnesium hydroxide [Milk of Magnesia] 400 mg/5 mL Suspension See Rx Instructions .ROUTE .COMPLEX RF: 0 bisacodyl [Dulcolax (bisacodyl)] 10 mg Suppository 10 mg HI DAILY PRN (Reason: Constipation) RF: 0 Fleet Enema 19-7 gram/118 mL Enema 118 ml HI DAILY PRN (Reason: Constipation) RF: 0 gabapentin 300 mg capsule 300 mg PO BID@0700,2000 RF: 0 bisacodyl [Dulcolax (bisacodyl)] 5 mg Tablet,Delayed Release (Dr/Ec) 10 mg PO DAILY PRN (Reason: Constipation) RF: 0 hydroxyzine pamoate [Vistaril] 25 mg Capsule See Rx Instructions .ROUTE .COMPLEX RF: 0 rosuvastatin 40 mg tablet 40 mg PO BEDTIME@2000 RF: 0 melatonin 5 mg Tablet 5 mg PO BEDTIME@2000 RF: 0 pioglitazone [Actos] 15 mg Tablet 7.5 mg PO DAILY@0700 RF: 0 venlafaxine 75 mg Capsule,Extended Release 24hr 75 mg PO DAILY@0700 RF: 0 sodium chloride [Saline Nasal] 0.65 % Aerosol,[place] See Rx Instructions .ROUTE .COMPLEX RF: 0 levetiracetam 500 mg tablet 500 mg PO BID@0700,1900 RF: 0 Discontinued furosemide 40 mg tablet 40 mg PO DAILY@0700 RF: 0 levofloxacin 750 mg tablet 750 mg PO DAILY RF: 0 Discharge Orders: Discharge Order (Routine); Ordered 11/13/20 Ordered By: Matthias Booker Referrals: Tashi Acosta MD [Primary Care Provider] - Discharge Diet: Cardiac and Diabetic Discharge Activity: Resume usual activity Patient Instructions: Opioid Safety Activity Restrictions/Additional Instructions: -Please use inhalers, antibiotics, supplements as prescribed -Bumex with potassium replacement -Continue to remain mobile, due to risk of developing blood clots -If you have signs of blood clot including blood clot in your lungs, and blood clot in your legs, including calf pain, calf swelling, sudden onset shortness of breath, bloody cough merely go to emergency room -Please follow-up with primary care provider in 1 week -Please discuss with primary care provider about Covid vaccination within 1 month, third booster vaccine -If you have worsening fevers, shortness of breath please come back to emergency room -Please continue to self isolate, socially distance, hand wash, facemask -Patient should be allowed outside her room, in order to do this, she should have an allotted time to be outside away from other residents, facemask, handwashing Discharge Attestations Time Spent in Discharge Care*: less than 30 min Quality Metrics Clinical Quality Measures During this hospital stay, did patient experience: None Coding Level of Care Code Acute g FW DC note Exam Detailed Diagnoses Acute and chronic respiratory failure ([id number]) J96.20 COVID-19 U07.1 Pneumonia J18.9 Right upper lobe pneumonia J18.9 Pneumonia type: due to unspecified organism Small airways disease J98.4 Nicotine addiction F17.200 Benign essential hypertension with target blood pressure below 140/90 I10 Decompensated COPD with exacerbation (chronic obstructive pulmonary disease) J44.1 Moderate to severe mitral regurgitation I34.0 Acute diastolic heart failure I50.31
[2020-11-13 12:07] LABS: Glucose Point of Care 203 mg/dL (70-110)
--- NOTE | 2020-11-13 16:06 | PC.NURSE ---
Discharge Note Patient discharged to [facility] via [facility] accompanied by transfer personnel. Discharge instructions reviewed with patient and/or claim service representative. Mobile pharmacy medications and/or prescriptions provided. Belongings/home medications returned.
[2020-11-15 21:21] LABS: Aspergillus AG,EIA,Serum NOT DETECTED; Aspergillus Galactomannan Inde <0.50
== END 2020-11-13 15:15 | disposition home or self-care (01) | DRG 177 ==
LOC: ER 11-09 00:03 → ER IP 11-09 02:07 → MS 2A 11-09 09:54
PROVIDERS: Admitting Provider Student in an Organized Health Care Education/Training Program; Emergency Provider Emergency Medicine; PCP Family Medicine; Visit Provider Family Medicine
DX: U07.1 COVID-19 (principal); J12.82 Pneumonia due to coronavirus disease 2019; J69.0 Pneumonitis due to inhalation of food and vomit; I50.33 Acute on chronic diastolic (congestive) heart failure; J96.22 Acute and chronic respiratory failure with hypercapnia; J96.21 Acute and chronic respiratory failure with hypoxia; J44.1 Chronic obstructive pulmonary disease with (acute) exacerbation; I42.8 Other cardiomyopathies; E66.2 Morbid (severe) obesity with alveolar hypoventilation; Z68.42 Body mass index [BMI] 45.0-49.9, adult; Z99.81 Dependence on supplemental oxygen; I11.0 Hypertensive heart disease with heart failure; F32.9 Major depressive disorder, single episode, unspecified; E78.5 Hyperlipidemia, unspecified; I08.1 Rheumatic disorders of both mitral and tricuspid valves; I27.20 Pulmonary hypertension, unspecified; E11.42 Type 2 diabetes mellitus with diabetic polyneuropathy; Z79.4 Long term (current) use of insulin; K22.8 Other specified diseases of esophagus; F17.210 Nicotine dependence, cigarettes, uncomplicated; Z95.2 Presence of prosthetic heart valve
CPT/HCPCS: 36415; 36416; 36600; 71045; 71275; 80053; 80202; 82274; 82550; 82803; 82962; 83605; 83630; 83735; 83880; 84100; 84145; 85025; 85378; 85610; 85651; 86140; 86403; 86606; 86612; 86628; 86635; 86698; 87040; 87070; 87106; 87205; 87305; 87493; 87506; 87641; 92523; 92610; 93005; 94640; 94664; 96365; 96367; 96372; 96375; 99285; J0692; J0743; J1100; J1650; J1815; J1940; J2405; J3370; J3480; J3490; J3535; J7030; J7626; Q9967

== ENCOUNTER 2020-12-09 10:22 | Emergency (ER) | payer MEDICARE, MEDICAID, SELFPAY ==
[2020-12-09 10:26] VITALS: BP 107/70; PULSE 85; RESP 18; TEMP 36.4; O2SAT 100; BMI 43.9
[2020-12-09 10:41] VITALS: BP 103/75; PULSE 82; RESP 18; O2SAT 100
--- NOTE | 2020-12-09 11:07 | ED_ITS ---
HPI - Fall General: Chief Complaint: Fall Stated Complaint: HEAD, SHOULDER PAIN, FALL Time Seen by Provider: 12/09/20 10:24 History of Present Illness: HPI Narrative: Patient is a 65-year-old female comes to the ED via EMS after having a fall. Patient lives at a care home. She says she was putting some clothes away in her closet and tripped over some clothes that were laying on the floor. She then fell back and her right shoulder and right back of head hit against the wall. She denies any loss of consciousness, vision changes, numbness tingling to 1 side of the body or any weakness to extremities or face. She endorses having an 8 out of 10 headache. Denies any neck pain. Right shoulder pain is mild she has full range of motion with some pain. Associated symptoms-after fall: Reports headache(s); Denies abdominal pain, chest pain, hematuria or neck pain Review of Systems Const: Denies: fever(s), chills or fatigue Eyes: Denies: change in vision or eye discomfort ENMT: Denies: throat pain, odynophagia, nasal discharge or nasal congestion Card: Denies: chest pain, palpitations, edema, swelling of feet/ankles, dyspnea on exertion or orthopnea Resp: Denies: dyspnea, productive cough or non-productive cough GI: Denies: abdominal pain, nausea, vomiting, diarrhea, constipation or hematochezia : Denies: flank pain, dysuria or hematuria Musc: Reports: extremity pain (Right shoulder); Denies: neck pain, back pain or extremity swelling Skin/Breast: Denies: rash or new lesions Neuro: Reports: headache(s); Denies: numbness in extremities or weakness in extremities PFS ED PFSH: Medical History Acute on chronic diastolic (congestive) heart failure Benign essential hypertension with target blood pressure below 140/90 Chronic respiratory failure with hypoxia and hypercapnia COPD (chronic obstructive pulmonary disease) Depression Diastolic congestive heart failure Hyperlipidemia Hypertension Moderate to severe mitral regurgitation Nonischemic cardiomyopathy Obesity Obesity hypoventilation syndrome Obstructive sleep apnea Pulmonary hypertension Restrictive lung disease Seizure disorder Sleep apnea Tricuspid regurgitation Type 2 diabetes mellitus Surgical History H/O mitral valve replacement History of Ulnar nerve compression Family History Brother CAD (coronary artery disease) Sister CAD (coronary artery disease) Grandmother Diabetes Mother Stroke Denies family history of Clotting disorder Dementia Chronic kidney disease (CKD) Suicide Anesthesia complication Bleeding disorder Lung disease Cancer Social History Smoking and tobacco status: current every day smoker cigarettes Years cigarettes smoked: 30 [ Other cigarette details: Hx of 1PPD x 30 Years ] Second hand smoke exposure: Yes Smoking risk assessment/counseling performed?: Yes Alcohol intake: never Counseling given: No Counseling given: No Caregiver/support person: Yes Lives independently: No Housing: Assisted Living Facility Marital status: / Current occupational status: retired and disabled History of recent travel: No Current gender identity: Female Physical Exam Const: COMMON NORMALS: no acute distress, patient oriented x3 and alert GENERAL APPEARANCE: cooperative and comfortable HENMT: COMMON NORMALS: normocephalic HEAD & SCALP: normocephalic MOUTH: Normal oral and palatal mucosa present THROAT: posterior oropharynx normal and uvula midline Eye: COMMON NORMALS: Equal, round and reactive pupils present and EOMs intact bilaterally PUPIL: Yes Equal, round and reactive pupils present Neck/C-Spine: COMMON NORMALS: supple GENERAL: Yes normal visual inspection Resp: COMMON NORMALS: normal respiratory effort, No retractions, No use of accessory muscles and clear to auscultation bilaterally AUSCULTATION: clear to auscultation bilaterally Cardio: COMMON NORMALS: regular rate, regular rhythm, S1 normal heart sound present, S2 normal heart sound present, No gallops present (Cardio), No clicks present (Cardio), No murmurs present (Cardio) and Peripheral pulses 2+ throughout RATE: regular rate RHYTHM: regular rhythm HEART SOUNDS: S1 normal heart sound present and S2 normal heart sound present PERIPHERAL PULSES: Peripheral pulses 2+ throughout GI: COMMON NORMALS: Normal to inspection, nondistended, normoactive bowel sounds present, Soft to palpation, non-tender and no masses PALPATION: Yes Soft to palpation : COMMON NORMALS: Yes no CVA tenderness BLADDER/KIDNEY EXAM: Yes no CVA tenderness Back/Pelvis: COMMON NORMALS: no CVA tenderness Extremity: COMMON NORMALS: normal to inspection and full ROM NARRATIVE EXTREMITY EXAM: Exam of right shoulder was unremarkable. Neurovascular intact distally. Neuro: COMMON NORMALS: patient oriented x3, CN's II-XII intact bilaterally, moves all extremities, no focal motor deficits and no sensory deficits noted SENSORIUM/ORIENTATION: Yes alert SENSORY EXAM: Yes extremities (intact) MOTOR EXAM: 5/5 motor strength present throughout Skin: GENERAL SKIN EXAM: dry skin Course Vital Signs: Vital signs: Vital Signs Temperature 97.5 F L 12/09/20 10:26 Pulse Rate 81 12/09/20 13:34 Respiratory Rate 18 12/09/20 13:34 Blood Pressure 100/80 12/09/20 13:34 Pulse Oximetry 99 12/09/20 13:34 MDM - Fall MDM Narrative: Medical decision making narrative: Patient is a 65-year-old female that comes to the ED after having a fall. Patient hit her head but denies any loss of consciousness. Patient endorses having a headache and right shoulder pain. Exam is benign. Vitals are stable. X-ray of right shoulder showed no acute fractures. CT of head showed no acute findings. Patient diagnosed with fall and headache. She was given a dose of hydrocodone here and it helped with her symptoms. She was told to follow-up with their PCP in 7 to 10 days for reevaluation. Return to ED precautions given. Patient understood agree with plan. Imaging Data^: Xray Ortho: Attestation: I personally reviewed and interpreted this imaging study as follows: Radiologist's impression: [address] [address] XRay Report Signed Patient: Yaquelin Loera Unit #: [id number] : 1955 Age/Sex: 65 / F ADM Date: 12/09/20 Loc: ER Room/Bed: Attending Dr: Ordering Provider/Ordering MD: Jared Montgomery Date of Service: 12/09/20 Procedure(s): XR shoulder RT min 2V* [id number] Accession Number(s): [id number] Report Number: [id number] PROCEDURE INFORMATION: Exam: XR Right Shoulder Exam date and time: 12/09/2020 11:18 AM Age: 65 years old Clinical indication: Pain and injury or trauma; Fall; Blunt trauma (contusions or hematomas); Shoulder; Right; Additional info: Fall with shoulder pain TECHNIQUE: Imaging protocol: XR Right shoulder. Views: 2 or more views. COMPARISON: CR Shoulder 2+ views RIGHT* [id number] 02/10/2019 1:27 PM FINDINGS: Bones/joints: Mild degenerative changes are present with tiny osteophytes on the glenoid. No fracture, dislocation or other acute bony abnormalities are seen. Soft tissues: Normal. XR/XR shoulder RT min 2V* [id number] IMPRESSION: No acute abnormality. Dictated By: Prasanth Valdez Signed By: Prasanth Valdez Signed Date/Time: 12/09/20 1233 DD/ 1232 CT Head: Attestation: I personally reviewed and interpreted this imaging study as follows: Radiologist's impression: [employer] [address] [address] Scan Report Signed Patient: Yaquelin Loera Unit #: [id number] : 1955 Age/Sex: 65 / F ADM Date: 12/09/20 Loc: ER Room/Bed: Attending Dr: Ordering Provider/Ordering MD: Jared Montgomery Date of Service: 12/09/20 Procedure(s): CT head wo con* [id number] Accession Number(s): [id number] Report Number: [id number] PROCEDURE INFORMATION: Exam: CT Head Without Contrast Exam date and time: 12/09/2020 11:18 AM Age: 65 years old Clinical indication: Injury or trauma; Fall; Blunt trauma (contusions or hematomas); Injury date: 12/09/20; Additional info: Fall and hit head. Headache, no loc TECHNIQUE: Imaging protocol: Computed tomography of the head without contrast. Radiation optimization: All CT scans at this facility use at least one of these dose optimization techniques: automated exposure control; mA and/or kV adjustment per patient size (includes targeted exams where dose is matched to clinical indication); or iterative reconstruction. COMPARISON: CT head wo con* [id number] 09/19/2019 11:32 AM RADIATION DOSE METRICS: Total DLP (mGy-cm): 934.39 FINDINGS: Brain: No intracranial hemorrhage, edema or other acute abnormalities are seen in the brain. There is no mass effect or midline shift. There is chronic atrophy with prominence of the ventricles and sulci. There is decreased white matter density which indicates chronic small vessel white matter ischemia. Cerebral ventricles: See Brain finding. Paranasal sinuses: There is mucosal thickening in the right ethmoid air cells similar to old study. Mastoid air cells: Small amount of fluid is present in the mastoid air cells. Bones/joints: Unremarkable. No acute fracture. Soft tissues: Unremarkable. CT/CT head wo con* [id number] IMPRESSION: 1. Chronic atrophy with chronic white matter ischemic changes. 2. No acute intracranial abnormality. Radiation Dose CTDIVOL = (mGy): DLP = 934.39 (mGy-cm) Dictated By: Prasanth Valdez Signed By: Prasanth Valdez Signed Date/Time: 12/09/201240 DD/ 124 Discharge Plan Discharge Patient Disposition: Home Clinical Impression: Headache Qualifiers: Headache type: post-traumatic Headache chronicity pattern: acute headache Intractability: not intractable Qualified Code(s): G44.319 - Acute post- traumatic headache, not intractable Fall as cause of accidental injury at home as place of occurrence Qualifiers: Encounter type: initial encounter Qualified Code(s): W19.XXXA - Unspecified fall, initial encounter Condition: Stable Prescriptions: No Action Cough Drops See Rx Instructions .ROUTE .COMPLEX RF: 0 ondansetron 4 mg tablet,disintegrating 4 mg PO Q6H PRN (Reason: nausea and vomiting) Qty: 14 RF: 0 naproxen [Naprosyn] 500 mg tablet 500 mg PO BID PRN (Reason: pain) Qty: 20 RF: 0 Myrbetriq 25 mg tablet extended release 24 hr 25 mg PO DAILY@0700 RF: 0 promethazine-DM 6.25-15 mg/5 mL Syrup 5 ml PO Q6H PRN (Reason: Cough) RF: 0 Ozempic 0.25 mg or 0.5 mg(2 mg/1.5 mL) Pen Injector 0.5 mg SUBCUT Q7D RF: 0 cholecalciferol (vitamin D3) 25 mcg (1,000 unit) tablet 1,000 unit PO DAILY@07 RF: 0 hydroxyzine HCl 25 mg Tablet 25 mg PO Q8H PRN (Reason: Anxiety) RF: 0 nicotine 21 mg/24 hr Patch 24 Hour 1 patch TRANSDERMAL DAILY@ RF: 0 SF 5000 Plus 1.1 % Cream See Rx Instructions .ROUTE .COMPLEX RF: 0 potassium chloride 20 mEq Tablet Extended Release 20 meq PO DAILY@ RF: 0 aspirin 81 mg tablet,delayed release (DR/EC) 81 mg PO DAILY@ RF: 0 bumetanide 1 mg tablet 1 mg PO DAILY@ RF: 0 Acidophilus 175 mg PO DAILY@ RF: 0 fluconazole 150 mg Tablet 150 mg PO Q7D RF: 0 loperamide 2 mg Tablet 2 mg PO QID PRN (Reason: Diarrhea) RF: 0 albuterol sulfate 90 mcg/actuation Hfa Aerosol Inhaler 1 puff INHALATION Q6H PRN (Reason: Shortness Of Breath) RF: 0 Vitamin C 500 mg tablet 500 mg PO BID@ RF: 0 pantoprazole 40 mg tablet,delayed release (DR/EC) 40 mg PO DAILY@ RF: 0 Nystop 100,000 unit/gram powder 1 applic topical BID@ RF: 0 Tresiba FlexTouch U-100 100 unit/mL (3 mL) insulin pen 10 unit SUBCUT BEDTIME@1999 RF: 0 insulin aspart U-100 [Novolog U-100 Insulin aspart] 100 unit/mL solution See Rx Instructions .ROUTE .COMPLEX RF: 0 carbamide peroxide [Debrox] 6.5 % Drops See Rx Instructions .ROUTE .COMPLEX RF: 0 Januvia 100 mg Tablet 100 mg PO DAILY@07 RF: 0 Flonase Sensimist 27.5 mcg/actuation [place],Suspension 1 spray INTRANASAL DAILY@699 RF: 0 Daliresp 500 mcg tablet 500 mcg PO DAILY@699 RF: 0 Trelegy Ellipta 100-62.5-25 mcg blister with device 1 inh inhalation DAILY@ RF: 0 ipratropium-albuterol 0.5 mg-3 mg(2.5 mg base)/3 mL Solution For Nebulization 3 ml INHALATION Q4H PRN (Reason: Shortness Of Breath) RF: 0 acetaminophen [Tylenol Extra Strength] 500 mg Tablet 1,000 mg PO Q4H MDD 8 tabs PRN (Reason: Pain) RF: 0 magnesium hydroxide [Milk of Magnesia] 400 mg/5 mL Suspension See Rx Instructions .ROUTE .COMPLEX RF: 0 bisacodyl [Dulcolax (bisacodyl)] 10 mg Suppository 10 mg NH DAILY PRN (Reason: Constipation) RF: 0 Fleet Enema 19-7 gram/118 mL Enema 118 ml NH DAILY PRN (Reason: Constipation) RF: 0 gabapentin 300 mg capsule 300 mg PO BID@0700,1999 RF: 0 bisacodyl [Dulcolax (bisacodyl)] 5 mg Tablet,Delayed Release (Dr/Ec) 10 mg PO DAILY PRN (Reason: Constipation) RF: 0 rosuvastatin 40 mg tablet 40 mg PO BEDTIME@1999 RF: 0 melatonin 5 mg Tablet 5 mg PO BEDTIME@1999 RF: 0 pioglitazone [Actos] 15 mg Tablet 7.5 mg PO DAILY@0700 RF: 0 venlafaxine 75 mg Capsule,Extended Release 24hr 75 mg PO DAILY@0700 RF: 0 sodium chloride [Saline Nasal] 0.65 % Aerosol,[place] See Rx Instructions .ROUTE .COMPLEX RF: 0 levetiracetam 500 mg tablet See Rx Instructions .ROUTE .COMPLEX RF: 0 Discharge Orders: Discharge ED (Routine); Ordered 12/09/20 Ordered By: Jared Montgomery Referrals: Tashi Acosta MD [Primary Care Provider] - Discharge Diet: Regular Discharge Activity: Resume usual activity Patient Instructions: Acute Headache (ED), Fall Prevention (ED) Activity Restrictions/Additional Instructions: Follow-up with medical provider as directed in 7 to 10 days for reevaluation. continue taking all home medications as previously prescribed. Return to the ER or your medical provider if condition worsens. Please read and understand discharge instructions. Thank you for choosing [facility] for your healthcare needs today. Please realize this is an emergency room and that we are providing you with a medical screening exam and this may not be complete and all inclusive of all the testing and or work up that you may need to determine your ailment or severity of your illness. It is very important that you follow up as instructed or that you return to the Emergency Department should you have concerns or if your condition changes or worsens in any way. Coding Level of Care Code ED Can Reforming Machine Operator for Kanchan Fwbrady Exam Comprehensive
--- NOTE | 2020-12-09 11:18 | XRR_ITS ---
PROCEDURE INFORMATION: Exam: XR Right Shoulder Exam date and time: 12/09/2020 11:18 AM Age: 65 years old Clinical indication: Pain and injury or trauma; Fall; Blunt trauma (contusions or hematomas); Shoulder; Right; Additional info: Fall with shoulder pain TECHNIQUE: Imaging protocol: XR Right shoulder. Views: 2 or more views. COMPARISON: CR Shoulder 2+ views RIGHT* [id number] 02/10/2019 1:27 PM FINDINGS: Bones/joints: Mild degenerative changes are present with tiny osteophytes on the glenoid. No fracture, dislocation or other acute bony abnormalities are seen. Soft tissues: Normal. XR/XR shoulder RT min 2V* [id number] IMPRESSION: No acute abnormality.
--- NOTE | 2020-12-09 11:18 | CTR_ITS ---
PROCEDURE INFORMATION: Exam: CT Head Without Contrast Exam date and time: 12/09/2020 11:18 AM Age: 65 years old Clinical indication: Injury or trauma; Fall; Blunt trauma (contusions or hematomas); Injury date: 12/09/20; Additional info: Fall and hit head. Headache, no loc TECHNIQUE: Imaging protocol: Computed tomography of the head without contrast. Radiation optimization: All CT scans at this facility use at least one of these dose optimization techniques: automated exposure control; mA and/or kV adjustment per patient size (includes targeted exams where dose is matched to clinical indication); or iterative reconstruction. COMPARISON: CT head wo con* [id number] 09/19/2019 11:32 AM RADIATION DOSE METRICS: Total DLP (mGy-cm): 934.39 FINDINGS: Brain: No intracranial hemorrhage, edema or other acute abnormalities are seen in the brain. There is no mass effect or midline shift. There is chronic atrophy with prominence of the ventricles and sulci. There is decreased white matter density which indicates chronic small vessel white matter ischemia. Cerebral ventricles: See Brain finding. Paranasal sinuses: There is mucosal thickening in the right ethmoid air cells similar to old study. Mastoid air cells: Small amount of fluid is present in the mastoid air cells. Bones/joints: Unremarkable. No acute fracture. Soft tissues: Unremarkable. CT/CT head wo con* [id number] IMPRESSION: 1. Chronic atrophy with chronic white matter ischemic changes. 2. No acute intracranial abnormality. Radiation Dose CTDIVOL = (mGy): DLP = 934.39 (mGy-cm)
[2020-12-09] MEDS: HYDROcodone-acetaminophen 5-325 mg Tablet 1 TAB PO (11:25)
--- NOTE | 2020-12-09 12:50 | PC.PHAR ---
pt is from [facility] from [facility] the pt had all her am meds-states the pt had no insulin this am-doxycycline 100mg bid was on [facility] the pt finished that on 11/20/20
[2020-12-09 13:34] VITALS: BP 100/80; PULSE 81; RESP 18; O2SAT 99
== END 2020-12-09 13:34 | disposition home or self-care (01) ==
PROVIDERS: Emergency Provider Physician Assistant; PCP Family Medicine
DX: G44.319 Acute post-traumatic headache, not intractable (principal); Z79.82 Long term (current) use of aspirin; Z79.4 Long term (current) use of insulin; I11.0 Hypertensive heart disease with heart failure; I50.33 Acute on chronic diastolic (congestive) heart failure; E78.5 Hyperlipidemia, unspecified; J44.9 Chronic obstructive pulmonary disease, unspecified; E11.9 Type 2 diabetes mellitus without complications; F17.210 Nicotine dependence, cigarettes, uncomplicated
CPT/HCPCS: 70450; 73030; 99283

== ENCOUNTER 2021-01-03 09:22 | Outpatient (CLI) | payer MEDICARE, MEDICAID, SELFPAY ==
--- NOTE | 2021-01-03 09:29 | FL_ITS ---
WS: [id number] MODIFIED BARIUM SWALLOW TECHNIQUE: Modified barium swallow with speech therapy using multiple consistencies. FLUOROSCOPY TIME: 2.4 minutes. CLINICAL INFORMATION: Other dysphagia COMPARISON: None. FINDINGS: Multiple consistencies utilized. Penetration with thin liquids. No fahad aspiration. Mild pooling in the vallecula. Slightly delayed oropharyngeal phase. No difficulties with the barium tablet. FL/FL barium swallow modifd [id number] IMPRESSION: Penetration with thin liquids. No fahad aspiration.
== END 2021-01-03 09:23 | disposition home or self-care (01) ==
LOC: RAD 09:26
PROVIDERS: PCP Family Medicine; Visit Provider Family Medicine
DX: R13.19 Other dysphagia (principal)
CPT/HCPCS: 74230; 92611

== ENCOUNTER 2021-01-20 09:46 | Outpatient (CLI) | payer MEDICARE, MEDICAID, SELFPAY ==
--- NOTE | 2021-01-20 10:15 | USCV_ITS ---
Yaquelin Loera Age: 65 Gender: F : 1955 Exam Date: 01/20/2021 10:03 Ordering Phys: Jay Adler MD ([email or web address]) Technologist: MARIBEL Exam Location: [facility] Indication: DYSPNEA BP: 100 / 65 HR: 84 Rhythm: Sinus Technical Quality: Technically difficult study MEASUREMENTS (Male / Female) Normal Values 2D ECHO LV Diastolic Diameter PLAX 3.2 cm 4.2 - 5.9 / 3.9 - 5.3 cm LV Systolic Diameter PLAX 2.3 cm IVS Diastolic Thickness 1.8 cm 0.6 - 1.0 / 0.6 - 0.9 cm IVS Systolic Thickness 1.7 cm LVPW Diastolic Thickness 1.6 cm 0.6 - 1.0 / 0.6 - 0.9 cm LVPW Systolic Thickness 1.7 cm RV Chamber Size 2.4 cm LVOT Diameter 2.0 cm LV Ejection Fraction 2D Teich 55.1 % LV Ejection Fraction MOD 2C 58.6 % LV Ejection Fraction 2C AL 58.4 % LA Diameter 3.8 cm LA Width 3.1 cm LA Height 4.1 cm RA Width 2.9 cm RA Height 4.0 cm Aorta at Sinotubular Diameter 2.5 cm DOPPLER AV Peak Velocity 144.0 cm/s LVOT Peak Velocity 101.0 cm/s AV Area Cont Eq vti 2.8 cm squared AV Area Cont Eq pk 2.2 cm squared MV Area PHT 5.0 cm squared Mitral E to A Ratio 2.0 MV E' Velocity 70.0 cm/s Mitral E to MV E' Ratio 19.2 Mitral E to LV E' Lateral Ratio 17.2 Mitral E to LV E' Septal Ratio 21.7 TR Peak Velocity 282.8 cm/s TR Peak Gradient 32.0 mmHg TR Mean Velocity 254.9 cm/s TR Mean Gradient 29.1 mmHg TR Velocity Time Integral 110.5 cm PV Peak Velocity 113.0 cm/s RV Acceleration Time 0.1 s RV Ejection Time 0.2 s RV AcT/ET 0.3 FINDINGS Left Ventricle Normal left ventricular size and systolic function, EF 66 %. No regional wall motion abnormalities. Right Ventricle Normal right ventricular size and systolic function. Right Atrium Summary of normal size Left Atrium Mildly increased left atrial size. Mitral Valve Thickened mitral valve. Moderate-severe mitral valve regurgitation. Aortic Valve No gross abnormalities noted. Leaflets could not be visualized well. Tricuspid Valve Trace to mild tricuspid valve regurgitation. Pulmonic Valve Pulmonic valve not well visualized. Pericardium No pericardial effusion. Aorta Normal ascending aorta dimension. CONCLUSIONS Normal left ventricular size and systolic function, EF 66 %. No regional wall motion abnormalities. Mildly increased left atrial size. Thickened mitral valve. Moderate-severe mitral valve regurgitation. Trace to mild tricuspid valve regurgitation. There is no pericardial effusion. There are no intracardiac masses. Compared to the previous study from 05/17/2019, there may not be a significant change. Dr Jay Adler MD [facility] (Electronically Signed) Final Date: 21 January 2021 01:11 S
== END 2021-01-20 09:47 | disposition home or self-care (01) ==
PROVIDERS: PCP Family Medicine; Visit Provider Internal Medicine Cardiovascular Disease
DX: R06.00 Dyspnea, unspecified (principal); I50.30 Unspecified diastolic (congestive) heart failure; I08.1 Rheumatic disorders of both mitral and tricuspid valves
CPT/HCPCS: 93306

== ENCOUNTER 2021-02-09 08:00 | Outpatient (CLI) | payer MEDICARE, MEDICAID, SELFPAY ==
--- NOTE | 2021-02-09 08:07 | MM_ITS ---
WS: [id number] BILATERAL DIGITAL SCREENING MAMMOGRAPHY WITH CAD CLINICAL INFORMATION: SCREENING HISTORY: Screening mammogram. No current complaints. COMPARISON: December 26, 2019 TECHNIQUE: Bilateral CC and MLO views. FINDINGS: Scattered fibroglandular densities bilaterally. A few tiny stable punctate calcifications right breas t. No suspicious focal mass, asymmetry, calcifications, or architectural distortion. No evidence of m alignancy. MM/[place] [id number] IMPRESSION: BI-RADS: 2-Benign FOLLOW UP: 1 Year Follow-up Recommend return to annual screening mammography.
== END 2021-02-09 08:01 | disposition home or self-care (01) ==
LOC: RADSHAW 08:03
PROVIDERS: PCP Family Medicine; Visit Provider Family Medicine
DX: Z12.31 Encounter for screening mammogram for malignant neoplasm of breast (principal)
CPT/HCPCS: 77067

== ENCOUNTER 2021-02-22 12:59 | Outpatient (CLI) | payer MEDICARE, MEDICAID, SELFPAY ==
[2021-02-22 13:34] VITALS: BP 113/79; PULSE 81; RESP 18; TEMP 36.3; O2SAT 96
[2021-02-22] MEDS: denosumab 60 mg SDV SUBCUT (13:41)
[2021-02-22 13:55] VITALS: BP 109/69; PULSE 84; RESP 18; TEMP 36.3; O2SAT 97
== END 2021-02-22 13:00 | disposition home or self-care (01) ==
PROVIDERS: PCP Family Medicine; Visit Provider Family Medicine
DX: M81.0 Age-related osteoporosis without current pathological fracture (principal)
CPT/HCPCS: 96372; J0897

== ENCOUNTER → 2021-05-19 15:04 | Outpatient (BNVA) | payer MEDICARE, MEDICAID, SELFPAY | PROVIDERS: PCP Family Medicine; Visit Provider Internal Medicine Critical Care Medicine | DX: J98.4 Other disorders of lung (principal); R91.8 Other nonspecific abnormal finding of lung field; E66.2 Morbid (severe) obesity with alveolar hypoventilation; J96.11 Chronic respiratory failure with hypoxia; J96.12 Chronic respiratory failure with hypercapnia; I42.8 Other cardiomyopathies; J44.1 Chronic obstructive pulmonary disease with (acute) exacerbation; F17.210 Nicotine dependence, cigarettes, uncomplicated | CPT/HCPCS: 99213 ==

== ENCOUNTER 2021-07-24 15:08 | Emergency (ER) | payer MEDICARE, MEDICAID, SELFPAY ==
--- NOTE | 2021-07-24 15:10 | XRR_ITS ---
PROCEDURE INFORMATION: Exam: XR Chest Exam date and time: 07/24/2021 3:23 PM Age: 66 years old Clinical indication: Shortness of breath; Additional info: SOB TECHNIQUE: Imaging protocol: XR of the chest. Views: 1 view. COMPARISON: CR XR chest 2V* [id number] 12/22/2020 3:09 PM FINDINGS: Lungs: Mild pulmonary edema is appreciated. Faint medial right middle lobe opacity may be atelectasis or pneumonia. Pleural spaces: Unremarkable. No pleural effusion. No pneumothorax. Heart/Mediastinum: The heart is mildly enlarged. Bones/joints: No acute fracture is seen. XR/XR chest 1V portable [id number] IMPRESSION: 1. Mild pulmonary edema. Medial right middle lobe opacity may be atelectasis or pneumonia. 2. Mild cardiomegaly.
--- NOTE | 2021-07-24 15:10 | ECG_ITS ---
[facility] Test Date: 2021-07-24 Pat Name: Yaquelin Loera Department: Room: Gender: Female [employer]: : 1955 Requested By: Devorah Agee Order Number: [id number] José MD: Jay Adler M.D. Measurements Intervals [place] Rate: 86 P: 65 ID: [id number] QRS: 73 QRSD: 88 T: 77 QT: 379 QTc: 455 Interpretive Statements SINUS RHYTHM Compared to ECG 11/08/2020 22:33:57 Ventricular premature complex(es) no longer present Electronically Signed On 07-24-2021 22:46:47 CDT by Jay Adler M.D. [id number]
[2021-07-24 15:23] VITALS: BP 132/83; PULSE 87; RESP 20; TEMP 36.5; O2SAT 100; BMI 47.9
--- NOTE | 2021-07-24 15:24 | W.ED.SOB ---
HPI - SOB/Dyspnea General: Chief Complaint: Shortness of Breath/Dyspnea Stated Complaint: SOB Time Seen by Provider: 07/24/21 15:10 Source: patient and EMS Mode of arrival: EMS Limitations: no limitations History of Present Illness: HPI Narrative: 66-year-old female who has a history of COPD states that she has been having some slight increase shortness of breath over the last 2 to 3 days patient is on 3 L at baseline EMS states she had a slight wheeze when they arrived they gave her albuterol she states she feels improved her pulse ox here is 96% on that 3 L. She denies any chest pain denies any fever she has had a slight cough. Associated symptoms: Deny abdominal pain, chest pain, fever(s), nausea or vomiting Review of Systems Const: Denies: fever(s), chills, body aches or change in appetite Eyes: Denies: blurry vision or eye discomfort ENMT: Denies: throat pain or dental pain Card: Denies: chest pain Resp: Reports: dyspnea and non-productive cough GI: Denies: abdominal pain, nausea, vomiting or diarrhea : Denies: dysuria Musc: Denies: neck pain or back pain Skin/Breast: Denies: rash Neuro: Denies: headache(s) Psych: Denies: depression Maximo/Lymph: Denies: easy bruising All/Imm: Denies: urticaria PFSH ED PFSH: Medical History Acute on chronic diastolic (congestive) heart failure Benign essential hypertension with target blood pressure below 140/90 Chronic respiratory failure with hypoxia and hypercapnia COPD (chronic obstructive pulmonary disease) Depression Diastolic congestive heart failure Hyperlipidemia Hypertension Moderate to severe mitral regurgitation Nonischemic cardiomyopathy Obesity Obesity hypoventilation syndrome Obstructive sleep apnea Pulmonary hypertension Restrictive lung disease Seizure disorder Sleep apnea Tricuspid regurgitation Type 2 diabetes mellitus Surgical History H/O mitral valve replacement History of Ulnar nerve compression Family History Brother CAD (coronary artery disease) Sister CAD (coronary artery disease) Grandmother Diabetes Mother Stroke Denies family history of Clotting disorder Dementia Chronic kidney disease (CKD) Suicide Anesthesia complication Bleeding disorder Lung disease Cancer Social History Smoking and tobacco status: current every day smoker cigarettes Years cigarettes smoked: 30 [ Other cigarette details: Hx of 1PPD x 30 Years] Second hand smoke exposure: Yes Smoking risk assessment/counseling performed?: Yes Alcohol intake: never Counseling given: No Counseling given: No Caregiver/support person: Yes Lives independently: No Housing: Assisted Living Facility Marital status: / Current occupational status: retired and disabled History of recent travel: No Current gender identity: Female Physical Exam Const: COMMON NORMALS: no acute distress, patient oriented x3 and healthy appearing HENMT: COMMON NORMALS: normocephalic and atraumatic HEAD & SCALP: normocephalic and atraumatic Eye: COMMON NORMALS: Equal, round and reactive pupils present and EOMs intact bilaterally PUPIL: Yes Equal, round and reactive pupils present Neck/C-Spine: COMMON NORMALS: full ROM and supple Chest: COMMONS NORMALS: normal inspection of the chest and normal palpation of entire chest wall Resp: COMMON NORMALS: normal respiratory effort, No retractions, No use of accessory muscles and clear to auscultation bilaterally AUSCULTATION: clear to auscultation bilaterally Cardio: COMMON NORMALS: regular rate, regular rhythm and No murmurs present (Cardio) RATE: regular rate RHYTHM: regular rhythm GI: COMMON NORMALS: Normal to inspection, nondistended, normoactive bowel sounds present, Soft to palpation, non-tender and no masses PALPATION: Yes Soft to palpation Extremity: COMMON NORMALS: normal to inspection and full ROM Neuro: COMMON NORMALS: patient oriented x3, moves all extremities and no focal motor deficits Psych: COMMON NORMALS: mental status grossly normal, Normal thought process present and cooperative THOUGHT PROCESS: Normal thought process present Skin: COMMON NORMALS: no rashes or lesions noted and no wounds GENERAL SKIN EXAM: no rashes or lesions noted Course Vital Signs: Vital signs: Vital Signs Temperature 97.7 F 07/24/21 15:23 Pulse Rate 93 07/24/21 16:20 Respiratory Rate 16 07/24/21 16:20 Blood Pressure 132/83 07/24/21 15:23 Pulse Oximetry 97 07/24/21 16:20 MDM - SOB/Dyspnea Medical Decision Making Patient presents with a cough and some mild pulmonary edema she does take Bumex at home gave her 1 dose of Lasix here also possible pneumonia we will start her on doxycycline she is in no distress here much improved after breathing treatments we will place her on 5 days of steroids I feel that she is stable for discharge she is to follow-up with PCP and return if worsening she understands agrees to plan. Lab Data : 07/24/21 16:40 07/24/21 16:40 Labs/Radiology: Radiology Impressions Chest X-Ray 07/24/21 15:10 IMPRESSION: 1. Mild pulmonary edema. Medial right middle lobe opacity may be atelectasis or pneumonia. 2. Mild cardiomegaly. Laboratory Results WBC 9.9 10^3/uL (4.0-10.0) 07/24/21 16:40 RBC 4.79 10^6/uL (4.1-5.3) 07/24/21 16:40 Hgb 12.9 g/dL (11.5-15.3) 07/24/21 16:40 Hct 42.9 % (37.0-47.0) 07/24/21 16:40 MCV 89.6 fl (81-99) 07/24/21 16:40 MCH 26.9 pg (28.0-34.0) L 07/24/21 16:40 MCHC 30.1 g/dL (30.0-36.0) 07/24/21 16:40 RDW 14.8 % (12.1-15.1) 07/24/21 16:40 Plt Count 149 10^3/cmm (130-400) 07/24/21 16:40 MPV 11.2 fL (7.4-10.4) H 07/24/21 16:40 Neut % (Auto) 71.4 % 07/24/21 16:40 Lymph % (Auto) 17.5 % 07/24/21 16:40 [place] % (Auto) 7.4 % 07/24/21 16:40 Eos % (Auto) 2.9 % 07/24/21 16:40 Baso % (Auto) 0.3 % 07/24/21 16:40 Neut # (Auto) 7.09 10^3/uL (1.8-7.7) 07/24/21 16:40 Lymph # (Auto) 1.7 10^3/uL (0.8-4.8) 07/24/21 16:40 [place] # (Auto) 0.7 10^3/uL (0.2-0.9) 07/24/21 16:40 Eos # (Auto) 0.3 10^3/uL (0.0-0.8) 07/24/21 16:40 Baso # (Auto) 0.0 10^3/uL (0.0-0.1) 07/24/21 16:40 Nucleated RBC % (auto) 0 % 07/24/21 16:40 Nucleated RBCs # 0.0 /100WBC 07/24/21 16:40 PT 13.00 SECONDS (12.1-14.9) 07/24/21 16:40 INR 0.95 (0.8-1.2) 07/24/21 16:40 Sodium 139 mmol/L (136-145) 07/24/21 16:40 Potassium 4.6 mmol/L (3.5-5.1) 07/24/21 16:40 Chloride 100 mmol/L (98-107) 07/24/21 16:40 Carbon Dioxide 28 mmol/L (22-29) 07/24/21 16:40 Anion Gap 15.6 (5-19) 07/24/21 16:40 BUN 19 mg/dL (8-23) 07/24/21 16:40 Creatinine 1.0 mg/dL (0.5-0.9) H 07/24/21 16:40 GFR Calculation 55.1 mL/min (90-130) L 07/24/21 16:40 Glucose 126 mg/dL (65-115) H 07/24/21 16:40 Calculated Osmolality 292 mOsm/kg (285-295) 07/24/21 16:40 Calcium 9.5 mg/dL (8.5-10.5) 07/24/21 16:40 Total Bilirubin 0.3 mg/dL (0.15-1.2) 07/24/21 16:40 AST 16 U/L (0-32) 07/24/21 16:40 ALT 12 U/L (0-33) 07/24/21 16:40 Alkaline Phosphatase 84 IU/L (35-105) 07/24/21 16:40 NT-Pro-B Natriuret Pep 661 pg/mL (0-125) H 07/24/21 16:40 Total Protein 6.5 g/dL (6.6-8.7) L 07/24/21 16:40 Albumin 4.2 g/dL (3.5-5.2) 07/24/21 16:40 Globulin 2.3 g/dL (1.3-4.6) 07/24/21 16:40 EKG Data EKG 1: I personally reviewed and interpreted this EKG as follows: EKG Interpretation Date: 07/24/21 EKG interpretation time: 16:14 Interpretation: 88Normal sinus rhythm heart rate [address] or T wave abnormalities QTC 423 Discharge Plan Discharge Patient Disposition: Home Clinical Impression: Community acquired pneumonia Qualifiers: Laterality: right Lung location: unspecified part of lung Qualified Code(s): J18.9 - Pneumonia, unspecified organism Condition: Stable Prescriptions: New prednisone 50 mg tablet 50 mg PO DAILY Qty: 5 0RF doxycycline hyclate 100 mg tablet 100 mg PO BID 10 Days Qty: 20 0RF No Action doxycycline hyclate 100 mg tablet 100 mg PO BID 0RF albuterol sulfate 90 mcg/actuation HFA aerosol inhaler 1 puff INHALATION Q6H PRN (Reason: Shortness Of Breath) Qty: 8.5 3RF Cough Drops See Rx Instructions .ROUTE .COMPLEX 0RF Rx Instructions: may keep at bedside ondansetron 4 mg tablet,disintegrating 4 mg PO Q6H PRN (Reason: nausea and vomiting) Qty: 14 0RF naproxen [Naprosyn] 500 mg tablet 500 mg PO BID PRN (Reason: pain) Qty: 20 0RF Myrbetriq 25 mg tablet extended release 24 hr 25 mg PO DAILY@0700 0RF promethazine-DM 6.25-15 mg/5 mL Syrup 5 ml PO Q6H PRN (Reason: Cough) 0RF Ozempic 0.25 mg or 0.5 mg(2 mg/1.5 mL) Pen Injector 0.5 mg SUBCUT Q7D 0RF Rx Instructions: on mondays cholecalciferol (vitamin D3) 25 mcg (1,000 unit) tablet 1,000 unit PO DAILY@07 0RF hydroxyzine HCl 25 mg Tablet 25 mg PO Q8H PRN (Reason: Anxiety) 0RF nicotine 21 mg/24 hr Patch 24 Hour 1 patch TRANSDERMAL DAILY@07 0RF Rx Instructions: for 2 weeks then start 14mg patch SF 5000 Plus 1.1 % Cream See Rx Instructions .ROUTE .COMPLEX 0RF Rx Instructions: brush on teeth bid with use of regular tooth paste do not eat or drink 30 mins after (use at 07:00 & 20:00) potassium chloride 20 mEq Tablet Extended Release 20 meq PO DAILY@07 0RF aspirin 81 mg tablet,delayed release (DR/EC) 81 mg PO DAILY@07 0RF bumetanide 1 mg tablet 1 mg PO DAILY@ 0RF Acidophilus 175 mg PO DAILY@ 0RF fluconazole 150 mg Tablet 150 mg PO Q7D 0RF Rx Instructions: for 3 weeks loperamide 2 mg Tablet 2 mg PO QID PRN (Reason: Diarrhea) 0RF Vitamin C 500 mg tablet 500 mg PO BID@ 0RF pantoprazole 40 mg tablet,delayed release (DR/EC) 40 mg PO DAILY@ 0RF Nystop 100,000 unit/gram powder 1 applic topical BID@ 0RF Tresiba FlexTouch U-100 100 unit/mL (3 mL) insulin pen 10 unit SUBCUT BEDTIME@1999 0RF insulin aspart U-100 [Novolog U-100 Insulin aspart] 100 unit/mL solution See Rx Instructions .ROUTE .COMPLEX 0RF Rx Instructions: PER SLIDING SCALE AC MEALS AND HS @ 05:30,11:00,16:00,20:00 150-200=0 units 201-250=2 units 251-300=4 units 301-350=6 units 351-400=8 units carbamide peroxide [Debrox] 6.5 % Drops See Rx Instructions .ROUTE .COMPLEX 0RF Rx Instructions: 5-10 GTTS EACH EAR MONTHLY. Januvia 100 mg Tablet 100 mg PO DAILY@0700 0RF Flonase Sensimist 27.5 mcg/actuation [place],Suspension 1 spray INTRANASAL DAILY@0700 0RF Daliresp 500 mcg tablet 500 mcg PO DAILY@0700 0RF Trelegy Ellipta 100-62.5-25 mcg blister with device 1 inh inhalation DAILY@07 0RF ipratropium-albuterol 0.5 mg-3 mg(2.5 mg base)/3 mL Solution For Nebulization 3 ml INHALATION Q4H PRN (Reason: Shortness Of Breath) 0RF acetaminophen [Tylenol Extra Strength] 500 mg Tablet 1,000 mg PO Q4H MDD 8 tabs PRN (Reason: Pain) 0RF magnesium hydroxide [Milk of Magnesia] 400 mg/5 mL Suspension See Rx Instructions .ROUTE .COMPLEX 0RF Rx Instructions: 30ML PO ONCE DAILY PRN IF NO BM FOR 3 DAYS bisacodyl [Dulcolax (bisacodyl)] 10 mg Suppository 10 mg DC DAILY PRN (Reason: Constipation) 0RF Rx Instructions: IF NO BM FROM MOM, IF CAN'T TAKE PO & NO RSLTS OF M.O.M. Fleet Enema 19-7 gram/118 mL Enema 118 ml DC DAILY PRN (Reason: Constipation) 0RF Rx Instructions: IF NO RESUTLS FROM M.O.M. gabapentin 300 mg capsule 300 mg PO BID@0700,1999 0RF bisacodyl [Dulcolax (bisacodyl)] 5 mg Tablet,Delayed Release (Dr/Ec) 10 mg PO DAILY PRN (Reason: Constipation) 0RF rosuvastatin 40 mg tablet 40 mg PO BEDTIME@1999 0RF melatonin 5 mg Tablet 5 mg PO BEDTIME@1999 0RF pioglitazone [Actos] 15 mg Tablet 7.5 mg PO DAILY@0700 0RF venlafaxine 75 mg Capsule,Extended Release 24hr 75 mg PO DAILY@0700 0RF sodium chloride [Saline Nasal] 0.65 % Aerosol,[place] See Rx Instructions .ROUTE .COMPLEX 0RF Rx Instructions: SQUEEZE INTO DRY NOSTRILS BID THEN FOLLOW WITH BACTROBAN. 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
[2021-07-24] MEDS: ipratropium-albuterol 3 mL Neb INHALATION (16:15)
[2021-07-24 16:20] VITALS: PULSE 93; RESP 16; O2SAT 97
[2021-07-24 16:46] LABS: Basophils % 0.3 %; Eosinophils # 0.3 10^3/uL (0.0-0.8); Eosinophils % 2.9 %; Hematocrit 42.9 % (37.0-47.0); Hemoglobin 12.9 g/dL (11.5-15.3); Lymphocytes # 1.7 10^3/uL (0.8-4.8); Lymphocytes % 17.5 %; Mean Corpuscular HGB Conc 30.1 g/dL (30.0-36.0); Mean Corpuscular Hemoglobin 26.9 pg (28.0-34.0); Mean Corpuscular Volume 89.6 fl (81-99); Mean Platelet Volume 11.2 fL (7.4-10.4); Monocytes # 0.7 10^3/uL (0.2-0.9); Monocytes % 7.4 %; Neutrophils # 7.09 10^3/uL (1.8-7.7); Neutrophils % 71.4 %; Nucleated Red Blood Cells % 0 %; Platelet Count 149 10^3/cmm (130-400); Red Blood Count 4.79 10^6/uL (4.1-5.3); Red Cell Distribution Width 14.8 % (12.1-15.1); White Blood Count 9.9 10^3/uL (4.0-10.0)
[2021-07-24 17:09] LABS: INR 0.95 (0.8-1.2)
[2021-07-24 17:12] LABS: Alanine Aminotransferase 12 U/L (0-33); Albumin Level 4.2 g/dL (3.5-5.2); Alkaline Phosphatase 84 IU/L (35-105); Anion Gap 15.6 (5-19); Aspartate Amino Transferase 16 U/L (0-32); Blood Urea Nitrogen 19 mg/dL (8-23); Calcium 9.5 mg/dL (8.5-10.5); Carbon Dioxide 28 mmol/L (22-29); Chloride 100 mmol/L (98-107); Globulin 2.3 g/dL (1.3-4.6); Glomerular Filtration Rate 55.1 mL/min (90-130); Glucose 126 mg/dL (65-115); NT Pro B Type Natriuretic Pept 661 pg/mL (0-125); Osmolality Calculated 292 mOsm/kg (285-295); Potassium 4.6 mmol/L (3.5-5.1); Sodium 139 mmol/L (136-145); Total Bilirubin 0.3 mg/dL (0.15-1.2); Total Protein 6.5 g/dL (6.6-8.7)
[2021-07-24] MEDS: FUROsemide 10 mg/mL SDV 10mL 60 MG IVP (17:12)
[2021-07-24 17:42] VITALS: BP 163/84; PULSE 91; RESP 18; O2SAT 100
== END 2021-07-24 17:44 | disposition home or self-care (01) ==
PROVIDERS: Emergency Provider Emergency Medicine; PCP Family Medicine
DX: J18.9 Pneumonia, unspecified organism (principal); F17.210 Nicotine dependence, cigarettes, uncomplicated; I11.0 Hypertensive heart disease with heart failure; I50.32 Chronic diastolic (congestive) heart failure; J44.9 Chronic obstructive pulmonary disease, unspecified; Z79.82 Long term (current) use of aspirin
CPT/HCPCS: 71045; 80053; 83880; 85025; 85610; 93005; 94640; 96374; 96375; 99284; J1940; J2930

== ENCOUNTER → 2021-08-16 15:08 | Outpatient (BNVA) | payer MEDICARE, MEDICAID, SELFPAY | PROVIDERS: PCP Family Medicine; Visit Provider Internal Medicine Critical Care Medicine | DX: J98.4 Other disorders of lung (principal); E66.2 Morbid (severe) obesity with alveolar hypoventilation; F17.210 Nicotine dependence, cigarettes, uncomplicated; I42.8 Other cardiomyopathies; J96.11 Chronic respiratory failure with hypoxia; J96.12 Chronic respiratory failure with hypercapnia; R91.8 Other nonspecific abnormal finding of lung field; E78.5 Hyperlipidemia, unspecified; I10 Essential (primary) hypertension | CPT/HCPCS: 99213 ==

== ENCOUNTER 2021-08-25 12:49 | Outpatient (CLI) | payer MEDICARE, MEDICAID, SELFPAY ==
[2021-08-25 13:00] VITALS: BP 121/66; PULSE 89; RESP 18; TEMP 36.4; O2SAT 93
[2021-08-25] MEDS: denosumab 60 mg SDV SUBCUT (13:11)
[2021-08-25 13:26] VITALS: BP 145/64; PULSE 84; RESP 18; TEMP 36.4; O2SAT 94
== END 2021-08-25 12:50 | disposition home or self-care (01) ==
PROVIDERS: PCP Family Medicine; Referring Provider Family Medicine; Visit Provider Family Medicine
DX: M81.0 Age-related osteoporosis without current pathological fracture (principal)
CPT/HCPCS: 96372; J0897

== ENCOUNTER → 2021-09-08 15:12 | Outpatient (BNVA) | payer MEDICARE, MEDICAID, SELFPAY | PROVIDERS: PCP Family Medicine; Visit Provider Internal Medicine Cardiovascular Disease | DX: I11.0 Hypertensive heart disease with heart failure (principal); I50.32 Chronic diastolic (congestive) heart failure; I38 Endocarditis, valve unspecified; I34.0 Nonrheumatic mitral (valve) insufficiency; I49.9 Cardiac arrhythmia, unspecified; I07.1 Rheumatic tricuspid insufficiency | CPT/HCPCS: 99214 ==

== ENCOUNTER → 2021-11-03 10:07 | Outpatient (BNVA) | payer MEDICARE, MEDICAID, SELFPAY | PROVIDERS: PCP Family Medicine; Visit Provider Podiatrist Foot & Ankle Surgery | DX: I73.9 Peripheral vascular disease, unspecified (principal); G62.9 Polyneuropathy, unspecified; B35.1 Tinea unguium; L85.3 Xerosis cutis | CPT/HCPCS: 11721 ==

== ENCOUNTER → 2021-12-08 09:52 | Outpatient (BNVA) | payer MEDICARE, MEDICAID, SELFPAY | PROVIDERS: PCP Family Medicine; Visit Provider Internal Medicine Critical Care Medicine | DX: J98.4 Other disorders of lung (principal); E66.2 Morbid (severe) obesity with alveolar hypoventilation; J96.11 Chronic respiratory failure with hypoxia; J96.12 Chronic respiratory failure with hypercapnia; I42.8 Other cardiomyopathies; Z68.43 Body mass index [BMI] 50.0-59.9, adult; F17.219 Nicotine dependence, cigarettes, with unspecified nicotine-induced disorders; Z99.81 Dependence on supplemental oxygen; I34.0 Nonrheumatic mitral (valve) insufficiency | CPT/HCPCS: 99213; 99214 ==

== ENCOUNTER 2021-12-29 17:08 | Emergency (ER) | payer MEDICARE, MEDICAID, SELFPAY ==
[2021-12-29 17:10] VITALS: BP 127/102; PULSE 88; TEMP 36.2; O2SAT 91; BMI 50.6
--- NOTE | 2021-12-29 17:12 | ED_ITS ---
HPI - General Adult General: Chief complaint: Fall Stated complaint: FALL/ RIB PAIN/ WRIST PAIN Time Seen by Provider: 12/29/21 17:10 History of Present Illness: Patient is a 66-year-old female who presents the emergency room after an episode of fall which occurred around 2:00. Patient reports that she was walking outside when she tripped over another resident and fell onto her left side. Patient denies her hitting her head but reports headache after episode of fall. Patient reports back pain, left wrist pain, left lateral chest and left hip pain. Since the fall. Patient has not been able to ambulate since then. Patient denies any anticoagulation use. He denies any associate chest pain, shortness, palpitation or lightheadedness prior to the episode of fall. Patient has no other complaints of pain. Onset: 2pm Duration:ongoing Location:home Severity:moderate Associated symptoms: Reports chest pain (+l lateral chest pain); Deny dyspnea, nausea, rash, palpitations or vomiting Review of Systems Const: Denies: fever(s) or chills Eyes: Denies: change in vision ENMT: Denies: mouth pain Card: Reports: chest pain (+l lateral chest pain); Denies: palpitations Resp: Denies: dyspnea or non-productive cough GI: Denies: abdominal pain, nausea, vomiting or diarrhea : Denies: dysuria Musc: Reports: back pain (+mid and lower back pain), extremity pain (+l wrist pain) and other (+L hip pain) Skin/Breast: Denies: rash or new lesions Neuro: Denies: weakness in extremities Psych: Reports: other (Normal mood) Maximo/Lymph: Denies: easy bruising PFS ED PFSH: Medical History Acute on chronic diastolic (congestive) heart failure Benign essential hypertension with target blood pressure below 140/90 Chronic respiratory failure with hypoxia and hypercapnia COPD (chronic obstructive pulmonary disease) Depression Diastolic congestive heart failure Hyperlipidemia Hypertension Moderate to severe mitral regurgitation Nonischemic cardiomyopathy Obesity Obesity hypoventilation syndrome Obstructive sleep apnea Pulmonary hypertension Restrictive lung disease Seizure disorder Sleep apnea Tricuspid regurgitation Type 2 diabetes mellitus Surgical History H/O mitral valve replacement History of Ulnar nerve compression Family History Brother CAD (coronary artery disease) Sister CAD (coronary artery disease) Grandmother Diabetes Mother Stroke Denies family history of Clotting disorder Dementia Chronic kidney disease (CKD) Suicide Anesthesia complication Bleeding disorder Lung disease Cancer Social History Smoking and tobacco status: current every day smoker cigarettes Packs smoked per day: 0.25 Years cigarettes smoked: 33 [ Other cigarette details: Hx of 1PPD x 30 Years, started 1991] Second hand smoke exposure: Yes Smoking risk assessment/counseling performed?: Yes Alcohol intake: never Counseling given: No Counseling given: No Caregiver/support person: Yes Lives independently: No Housing: Assisted Living Facility Marital status: / Current occupational status: retired and disabled History of recent travel: No Current gender identity: Female Physical Exam Const: COMMON NORMALS: alert HENMT: COMMON NORMALS: atraumatic HEAD & SCALP: atraumatic MOUTH: moist mucous membranes not abnormal Eye: COMMON NORMALS: EOMs intact bilaterally and conjunctivae normal CONJUNCTIVA: Yes conjunctivae normal Neck/C-Spine: COMMON NORMALS: full ROM and supple Chest: OTHER: +No palpable crepitus or visible deformity of the left chest Resp: COMMON NORMALS: normal respiratory effort and clear to auscultation bilaterally AUSCULTATION: clear to auscultation bilaterally Cardio: COMMON NORMALS: regular rate RATE: regular rate GI: COMMON NORMALS: Soft to palpation and non-tender PALPATION: Yes Soft to palpation Extremity: NARRATIVE EXTREMITY EXAM: + Decreased range of motion of the left hip due to pain, left lower extremity does not appear to be externally rotated or shortened, 2+ DP/TP pulses on the left lower extremity, sensation intact in the left lower extremity, patient has mild left wrist tenderness palpation. 2+ radial pulses in the left upper extremity. Neurovascular exam intact in left upper extremity Neuro: SENSORIUM/ORIENTATION: Yes alert MOTOR EXAM: No Abnormal motor stren gth present and Other motor observations present (no focal motor deficits) Psych: COMMON NORMALS: speech normal SPEECH: Yes normal speech MOOD & AFFECT: Yes euthymic mood Course Vital Signs: Vital signs: Vital Signs Temperature 97.2 F L 12/29/21 17:10 Pulse Rate 86 10/13/22 20:26 Respiratory Rate 18 12/29/21 20:26 Blood Pressure 122/84 12/29/21 19:14 Pulse Oximetry 99 12/29/21 20:26 Oxygen Delivery Me thod 12/29/21 19:14 Oxygen Flow Rate 2.5 12/29/21 19:14 MDM - General Adult Medical Decision Making Patient is a 66-year-old female who presents the emergency room after an episode of fall which occurred around 2:00. Patient reports that she was walking outside when she tripped over another resident and fell onto her left side. On exam, patient has mild left wrist tenderness palpation, no scaphoid area tenderness. Patient has been decreased range of motion of the left hip due to pain. No visible crepitus or chest deformity from the fall. Lung sounds appears to be clear bilaterally. Patient at baseline requires 2 L oxygen. Patient is on 2 L saturating 95%. No increased work of breathing. Patient received IM morphine. CT head showed mastoid air cell opacification. Patient has no mastoid tenderness palpation. Given clinical picture, do not suspect acute mastoiditis. Imaging studies negative for any acute finding. Patient is hemodynamically stable no complaints of pain currently. Rx: Tylenol, lidocaine patch, and menthol PRN pain Disposition: Discharge. Patient counseled regarding diagnostic impression, treatment plan. Patient given ED strict return precautions to return for continuation, worsening, or development of new symptoms. Instructed to f/u w/ PCP regarding symptoms today. Patient verbalized understanding. Lab Data Radiology Impressions Chest X-Ray 12/29/21 17:24 IMPRESSION: No acute findings. Head CT 12/29/21 17:24 IMPRESSION: 1. No acute intracranial findings. 2. Chronic white matter disease. 3. Fluid throughout the bilateral mastoid air cells, correlate for mastoiditis. Lumbar Spine CT 12/29/21 17:24 IMPRESSION: No acute findings. Pelvis X-Ray 12/29/21 17:24 IMPRESSION: No acute findings. Thoracic Spine CT 12/29/21 17:24 IMPRESSION: No acute findings Wrist X-Ray 12/29/21 17:30 IMPRESSION: No acute findings. Imaging Data Other Imaging: Radiologist's impression: [address] [place] [address] XRay Report Signed Patient: Yaquelin Loera Unit #: [id number] : 1955 Age/Sex: 66 / F ADM Date: 12/29/21 Loc: ER Room/Bed: Attending Dr: Ordering Provider/Ordering MD: Selam Goyal MD Date of Service: 12/29/21 Procedure(s): XR wrist LT 2V 04270 Accession Number(s): [id number] Report Number: [id number] PROCEDURE INFORMATION: Exam: XR Left Wrist Exam date and time: 12/29/2021 5:48 PM Age: 66 years old Clinical indication: Pain; Wrist; Left; Additional info: Fall TECHNIQUE: Imaging protocol: Radiologic exam of the Left wrist. Views: 1 or 2 views. COMPARISON: No relevant prior studies available. FINDINGS: Bones/joints:? No evident fracture or dislocation. Soft tissues: Normal. XR/XR wrist LT 2V [id number] IMPRESSION: No acute findings. ? Dictated By: Jose Miguel Morris MD Signed By: Jose Miguel Morris MD Signed Date/Time: 12/29/21 185 DD/ [address] [address] XRay Report Signed Patient: Yaquelin Loera Unit #: [id number] : 1955 Age/Sex: 66 / F ADM Date: 12/29/21 Loc: ER Room/Bed: Attending Dr: Ordering Provider/Ordering MD: Selam Goyal MD Date of Service: 12/29/21 Procedure(s): XR pelvis 1-2V* [id number] Accession Number(s): [id number] Report Number: [id number] PROCEDURE INFORMATION: Exam: XR Pelvis Exam date and time: 12/29/2021 5:45 PM Age: 66 years old Clinical indication: Pelvic pain; Additional info: Fall TECHNIQUE: Imaging protocol: Radiologic exam of the pelvis. Views: 1 or 2 view. COMPARISON: CT abdomen pelvis w con* [id number] 01/30/2020 9:32 PM FINDINGS: Bones/joints: Unremarkable. No evident acute fracture. Soft tissues: Unremarkable. XR/XR pelvis 1-2V* [id number] IMPRESSION: No acute findings. ? Dictated By: Jose Miguel Morris MD Signed By: Jose Miguel Morris MD Signed Date/Time: 12/29/211901 DD/ [address] [id number] XRay Report Signed Patient: Yaquelin Loera Unit #: [id number] : 1955 Age/Sex: 66 / F ADM Date: 12/29/21 Loc: ER Room/Bed: Attending Dr: Ordering Provider/Ordering MD: Selam Goyal MD Date of Service: 12/29/21 Procedure(s): XR chest 1V portable [id number] Accession Number(s): [id number] Report Number: [id number] PROCEDURE INFORMATION: Exam: XR Chest Exam date and time: 12/29/2021 5:44 PM Age: 66 years old Clinical indication: Chest wall pain; Additional info: Fall TECHNIQUE: Imaging protocol: Radiologic exam of the chest. Views: 1 view. COMPARISON: CR (CHEST, ) 07/24/2021 3:23 PM FINDINGS: Lungs:? Pulmonary vasculature more distinct. No consolidation. Pleural spaces: Unremarkable. No pleural effusion. No pneumothorax. Heart/Mediastinum: Cardiomegaly unchanged. Bones/joints: No acute findings. XR/XR chest 1V portable [id number] IMPRESSION: No acute findings. ? Dictated By: Jose Miguel Morris MD Signed By: Jose Miguel Morris MD Signed Date/Time: 12/29/211906 DD/ [address] [address] [address] Scan Report Signed Patient: Yaquelin Loera Unit #: [id number] : 1955 Age/Sex: 66 / F ADM Date: 12/29/21 Loc: ER Room/Bed: Attending Dr: Ordering Provider/Ordering MD: Selam Goyal MD Date of Service: 12/29/21 Procedure(s): CT head wo con* [id number] Accession Number(s): [id number] Report Number: [id number] PROCEDURE INFORMATION: Exam: CT Head Without Contrast Exam date and time: 12/29/2021 7:12 PM Age: 66 years old Clinical indication: Injury or trauma; Fall; Blunt trauma (contusions or hematomas); Without loss of consciousness; Patient HX: Tripped and fell onto concrete; Additional info: Fall/headache TECHNIQUE: Imaging protocol: Computed tomography of the head without contrast. Radiation optimization: All CT scans at this facility use at least one of these dose optimization techniques: automated exposure control; mA and/or kV adjustment per patient size (includes targeted exams where dose is matched to clinical indication); or iterative reconstruction. COMPARISON: CT head wo con* [id number] 12/09/2020 12:12 PM RADIATION DOSE METRICS: Total DLP (mGy-cm): 1075.28 FINDINGS: Brain: No intracranial hemorrhage. Patchy decreased attenuation of the deep white matter is nonspecific but unchanged from prior and compatible with chronic microvascular angiopathy. No evidence of edema or territorial infarct. No abnormal mass effect or midline shift. No extra-axial fluid collection. Cerebral ventricles: No ventriculomegaly. Paranasal sinuses: Fluid right posterior ethmoid air cell, unchanged from prior. No evidence of acute sinusitis. Mastoid air cells: Fluid throughout bilateral mastoid air cells. Bones/joints: No acute fracture. Soft tissues: Unremarkable. CT/CT head wo con* [id number] IMPRESSION: 1. No acute intracranial findings. 2. Chronic white matter disease. 3. Fluid throughout the bilateral mastoid air cells, correlate for mastoiditis. ? Dictated By: Roverto Cerda MD Signed By: Roverto Cerda MD Signed Date/Time: 12/29/212026 DD/ 11 Discharge Plan Discharge Patient Disposition: Home Clinical Impression: Acute hip pain, Pain in rib, Acute wrist pain, Fall Condition: Stable Prescriptions: New acetaminophen 500 mg tablet 500 mg PO Q6H PRN (Reason: pain) 5 Days Qty: 20 0RF Biofreeze (menthol) 5 % gel 1 ea topical BID PRN (Reason: pain) 10 Days Qty: 1 0RF lidocaine 5 % adhesive patch,medicated 1 patch topical DAILY PRN (Reason: pain) 30 Days Qty: 30 0RF Rx Instructions: leave on most painful area for up to 12 hrs No Action zinc 50 mg tablet 50 mg PO DAILY rosuvastatin 40 mg tablet 40 mg PO DAILY (DME) Diabetic Shoes See Rx Instructions .Route .MEDSUPPLY Qty: 1 0RF Rx Instructions: As directed ammonium lactate 12 % cream 1 applic topical DAILY Qty: 385 0RF albuterol sulfate 90 mcg/actuation HFA aerosol inhaler 1 puff INHALATION Q6H PRN (Reason: Shortness Of Breath) Qty: 8.5 3RF Cough Drops See Rx Instructions .ROUTE .COMPLEX Rx Instructions: may keep at bedside ondansetron 4 mg tablet,disintegrating 4 mg PO Q6H PRN (Reason: nausea and vomiting) Qty: 14 0RF naproxen [Naprosyn] 500 mg tablet 500 mg PO BID PRN (Reason: pain) Qty: 20 0RF Myrbetriq 25 mg tablet extended release 24 hr 25 mg PO DAILY@0700 promethazine-DM 6.25-15 mg/5 mL Syrup 5 ml PO Q6H PRN (Reason: Cough) Ozempic 0.25 mg or 0.5 mg(2 mg/1.5 mL) Pen Injector 0.5 mg SUBCUT Q7D Rx Instructions: on mondays cholecalciferol (vitamin D3) 25 mcg (1,000 unit) tablet 1,000 unit PO DAILY@07 hydroxyzine HCl 25 mg Tablet 25 mg PO Q8H PRN (Reason: Anxiety) SF 5000 Plus 1.1 % Cream See Rx Instructions .ROUTE .COMPLEX Rx Instructions: brush on teeth bid with use of regular tooth paste do not eat or drink 30 mins after (use at 07:00 & 20:00) aspirin 81 mg tablet,delayed release (DR/EC) 81 mg PO DAILY@07 bumetanide 1 mg tablet 1 mg PO DAILY@07 Acidophilus 175 mg PO DAILY@19 loperamide 2 mg Tablet 2 mg PO QID PRN (Reason: Diarrhea) Vitamin C 500 mg tablet 500 mg PO BID@ pantoprazole 40 mg tablet,delayed release (DR/EC) 40 mg PO DAILY@07 Nystop 100,000 unit/gram powder 1 applic topical BID@ Tresiba FlexTouch U-100 100 unit/mL (3 mL) insulin pen 10 unit SUBCUT BEDTIME@1999 insulin aspart U-100 [Novolog U-100 Insulin aspart] 100 unit/mL solution See Rx Instructions .ROUTE .COMPLEX Rx Instructions: PER SLIDING SCALE AC MEALS AND HS @ 05:30,11:00,16:00,20:00 150-200=0 units 201-250=2 units 251-300=4 units 301-350=6 units 351-400=8 units carbamide peroxide [Debrox] 6.5 % Drops See Rx Instructions .ROUTE .COMPLEX Rx Instructions: 5-10 GTTS EACH EAR MONTHLY. Januvia 100 mg Tablet 100 mg PO DAILY@0700 Flonase Sensimist 27.5 mcg/actuation [place],Suspension 1 spray INTRANASAL DAILY@0700 Daliresp 500 mcg tablet 500 mcg PO DAILY@0700 Trelegy Ellipta 100-62.5-25 mcg blister with device 1 inh inhalation DAILY@07 ipratropium-albuterol 0.5 mg-3 mg(2.5 mg base)/3 mL Solution For Nebulization 3 ml INHALATION Q4H PRN (Reason: Shortness Of Breath) acetaminophen [Tylenol Extra Strength] 500 mg Tablet 1,000 mg PO Q4H MDD 8 tabs PRN (Reason: Pain) magnesium hydroxide [Milk of Magnesia] 400 mg/5 mL Suspension See Rx Instructions .ROUTE .COMPLEX Rx Instructions: 30ML PO ONCE DAILY PRN IF NO BM FOR 3 DAYS bisacodyl [Dulcolax (bisacodyl)] 10 mg Suppository 10 mg ND DAILY PRN (Reason: Constipation) Rx Instructions: IF NO BM FROM MOM, IF CAN'T TAKE PO & NO RSLTS OF M.O.M. Fleet Enema 19-7 gram/118 mL Enema 118 ml ND DAILY PRN (Reason: Constipation) Rx Instructions: IF NO RESUTLS FROM M.O.M. gabapentin 300 mg capsule 300 mg PO BID@0700,2000 bisacodyl [Dulcolax (bisacodyl)] 5 mg Tablet,Delayed Release (Dr/Ec) 10 mg PO DAILY PRN (Reason: Constipation) melatonin 5 mg Tablet 5 mg PO BEDTIME@2000 pioglitazone [Actos] 15 mg Tablet 7.5 mg PO DAILY@0700 venlafaxine 75 mg Capsule,Extended Release 24hr 75 mg PO DAILY@0700 sodium chloride [Saline Nasal] 0.65 % Aerosol,[place] See Rx Instructions .ROUTE .COMPLEX Rx Instructions: SQUEEZE INTO DRY NOSTRILS BID THEN FOLLOW WITH BACTROBAN. USE AT 0700 AND 2000 levetiracetam 500 mg tablet See Rx Instructions .ROUTE .COMPLEX Rx Instructions: 500mg po qam @07:00 and 1000mg po daily@19:00 Discharge Orders: Discharge ED (Routine); Ordered 12/29/21 Ordered By: Selam Goyal Referrals: Tashi Acosta MD [Primary Care Provider] - Discharge Diet: Advance as tolerated Discharge Activity: Increase activity as tolerated Patient Instructions: Fall Prevention (ED), Pain Management Activity Restrictions/Additional Instructions: Come back if you have any new or concerning issues. Please repeat x-ray in 1 week should she have any further additional pain anywhere in your chest, wrist or hip. Coding Level of Care Code ED [employer] for [employer] Fwd Exam Comprehensive
--- NOTE | 2021-12-29 17:24 | XRR_ITS ---
PROCEDURE INFORMATION: Exam: XR Pelvis Exam date and time: 12/29/2021 5:45 PM Age: 66 years old Clinical indication: Pelvic pain; Additional info: Fall TECHNIQUE: Imaging protocol: Radiologic exam of the pelvis. Views: 1 or 2 view. COMPARISON: CT abdomen pelvis w con* [id number] 01/30/2020 9:32 PM FINDINGS: Bones/joints: Unremarkable. No evident acute fracture. Soft tissues: Unremarkable. XR/XR pelvis 1-2V* [id number] IMPRESSION: No acute findings.
--- NOTE | 2021-12-29 17:24 | CTR_ITS ---
PROCEDURE INFORMATION: Exam: CT Thoracic Spine Without Contrast Exam date and time: 12/29/2021 7:16 PM Age: 66 years old Clinical indication: Injury or trauma; Fall; Blunt trauma (contusions or hematomas); Injury details: Tripped and fell onto concrete, pain in left side of upper and lower back TECHNIQUE: Imaging protocol: Computed tomography of the thoracic spine without contrast. Radiation optimization: All CT scans at this facility use at least one of these dose optimization techniques: automated exposure control; mA and/or kV adjustment per patient size (includes targeted exams where dose is matched to clinical indication); or iterative reconstruction. COMPARISON: CT abdomen pelvis w con* [id number] 01/30/2020 9:32 PM RADIATION DOSE METRICS: Total DLP (mGy-cm): 1546.81 FINDINGS: Bones/joints: Compression of inferior endplate of T12 is unchanged. No acute bony findings. Soft tissues: Unremarkable. CT/CT thoracic spin wo con* [id number] IMPRESSION: No acute findings
--- NOTE | 2021-12-29 17:24 | XRR_ITS ---
PROCEDURE INFORMATION: Exam: XR Chest Exam date and time: 12/29/2021 5:44 PM Age: 66 years old Clinical indication: Chest wall pain; Additional info: Fall TECHNIQUE: Imaging protocol: Radiologic exam of the chest. Views: 1 view. COMPARISON: CR (CHEST, ) 07/24/2021 3:23 PM FINDINGS: Lungs: Pulmonary vasculature more distinct. No consolidation. Pleural spaces: Unremarkable. No pleural effusion. No pneumothorax. Heart/Mediastinum: Cardiomegaly unchanged. Bones/joints: No acute findings. XR/XR chest 1V portable [id number] IMPRESSION: No acute findings.
--- NOTE | 2021-12-29 17:24 | CTR_ITS ---
PROCEDURE INFORMATION: Exam: CT Head Without Contrast Exam date and time: 12/29/2021 7:12 PM Age: 66 years old Clinical indication: Injury or trauma; Fall; Blunt trauma (contusions or hematomas); Without loss of consciousness; Patient HX: Tripped and fell onto concrete; Additional info: Fall/headache TECHNIQUE: Imaging protocol: Computed tomography of the head without contrast. Radiation optimization: All CT scans at this facility use at least one of these dose optimization techniques: automated exposure control; mA and/or kV adjustment per patient size (includes targeted exams where dose is matched to clinical indication); or iterative reconstruction. COMPARISON: CT head wo con* [id number] 12/09/2020 12:12 PM RADIATION DOSE METRICS: Total DLP (mGy-cm): 1075.28 FINDINGS: Brain: No intracranial hemorrhage. Patchy decreased attenuation of the deep white matter is nonspecific but unchanged from prior and compatible with chronic microvascular angiopathy. No evidence of edema or territorial infarct. No abnormal mass effect or midline shift. No extra-axial fluid collection. Cerebral ventricles: No ventriculomegaly. Paranasal sinuses: Fluid right posterior ethmoid air cell, unchanged from prior. No evidence of acute sinusitis. Mastoid air cells: Fluid throughout bilateral mastoid air cells. Bones/joints: No acute fracture. Soft tissues: Unremarkable. CT/CT head wo con* [id number] IMPRESSION: 1. No acute intracranial findings. 2. Chronic white matter disease. 3. Fluid throughout the bilateral mastoid air cells, correlate for mastoiditis.
--- NOTE | 2021-12-29 17:24 | CTR_ITS ---
PROCEDURE INFORMATION: Exam: CT Lumbar Spine Without Contrast Exam date and time: 12/29/2021 7:22 PM Age: 66 years old Clinical indication: Injury or trauma; Fall; Blunt trauma (contusions or hematomas); Injury details: Tripped and fell onto concrete, left side low back pain TECHNIQUE: Imaging protocol: Computed tomography of the lumbar spine without contrast. Radiation optimization: All CT scans at this facility use at least one of these dose optimization techniques: automated exposure control; mA and/or kV adjustment per patient size (includes targeted exams where dose is matched to clinical indication); or iterative reconstruction. COMPARISON: CT lumbar spine wo con* [id number] 10/18/2019 1:08 PM RADIATION DOSE METRICS: Total DLP (mGy-cm): 1037.88 FINDINGS: Bones/joints: Compression of L4 is unchanged. No acute bony findings. Multilevel vacuum disc changes are noted. Mild multilevel facet arthrosis greatest on the left at L5-S1. Soft tissues: Unremarkable. CT/CT lumbar spine wo con* [id number] IMPRESSION: No acute findings.
--- NOTE | 2021-12-29 17:30 | XRR_ITS ---
PROCEDURE INFORMATION: Exam: XR Left Wrist Exam date and time: 12/29/2021 5:48 PM Age: 66 years old Clinical indication: Pain; Wrist; Left; Additional info: Fall TECHNIQUE: Imaging protocol: Radiologic exam of the Left wrist. Views: 1 or 2 views. COMPARISON: No relevant prior studies available. FINDINGS: Bones/joints: No evident fracture or dislocation. Soft tissues: Normal. XR/XR wrist LT 2V [id number] IMPRESSION: No acute findings.
[2021-12-29 18:02] VITALS: BP 141/83; RESP 21; O2SAT 100
[2021-12-29] MEDS: morphine 4 mg/mL SDV 1 mL IM (18:06)
--- NOTE | 2021-12-29 18:59 | PC.NURSE ---
THIS NURSE TOOK OVER CARE AT 1900 FROM KIMI ERNST.
[2021-12-29 19:14] VITALS: BP 122/84; PULSE 80; RESP 18; O2SAT 100
[2021-12-29 20:26] VITALS: PULSE 86; RESP 18; O2SAT 99
== END 2021-12-29 20:25 | disposition home or self-care (01) ==
PROVIDERS: Emergency Provider Emergency Medicine; PCP Family Medicine
DX: R07.81 Pleurodynia (principal); M25.532 Pain in left wrist; M25.552 Pain in left hip; Z79.82 Long term (current) use of aspirin; Z79.4 Long term (current) use of insulin; F17.210 Nicotine dependence, cigarettes, uncomplicated; I11.0 Hypertensive heart disease with heart failure; I50.33 Acute on chronic diastolic (congestive) heart failure; J44.9 Chronic obstructive pulmonary disease, unspecified; E78.5 Hyperlipidemia, unspecified; E11.9 Type 2 diabetes mellitus without complications
CPT/HCPCS: 70450; 71045; 72128; 72131; 72170; 73100; 96372; 99285; J2270

== ENCOUNTER 2022-01-04 23:16 | Inpatient (IN) | payer MEDICARE, MEDICAID, SELFPAY ==
[2022-01-04 23:18] VITALS: BP 138/95; PULSE 89; RESP 17; TEMP 36.4; O2SAT 100
[2022-01-04 23:24] VITALS: PULSE 87
--- NOTE | 2022-01-04 23:29 | CTR_ITS ---
PROCEDURE INFORMATION: Exam: CT Abdomen And Pelvis Without Contrast Exam date and time: 01/04/2022 11:45 PM Age: 66 years old Clinical indication: Injury or trauma; Blunt; Rlq; Injury details: Fall, right hip pain, lower abdominal pain; Prior surgery; Surgery date: 6+ months; Surgery type: x2 TECHNIQUE: Imaging protocol: Computed tomography of the abdomen and pelvis without contrast. Radiation optimization: All CT scans at this facility use at least one of these dose optimization techniques: automated exposure control; mA and/or kV adjustment per patient size (includes targeted exams where dose is matched to clinical indication); or iterative reconstruction. COMPARISON: CT abdomen pelvis w con* [id number] 01/30/2020 9:32 PM RADIATION DOSE METRICS: Total DLP (mGy-cm): 1148.19 FINDINGS: Lungs: The lung bases appear unremarkable. Heart: Cardiomegaly is present. Liver: Unremarkable. No mass. Gallbladder and bile ducts: Unremarkable. No calcified stones. No ductal dilation. Pancreas: Unremarkable. No ductal dilation. Spleen: Unremarkable. No splenomegaly. Adrenal glands: Unremarkable. No mass. Kidneys and ureters: 3 mm nonobstructing calculus left kidney. No right renal calculi. No hydronephrosis on either side. Ureters appear normal. No solid renal masses. Stomach and bowel: Multiple dilated proximal small bowel loops with air-fluid levels. The mid/distal small bowel has an empty, decompressed appearance. Findings are consistent with small bowel obstruction. No ischemic change or perforation noted. No acute gastric abnormality demonstrated. Diverticulosis of the colon. No evidence of acute diverticulitis. Appendix: The appendix is normal in appearance. No evidence of appendicitis. Intraperitoneal space: No pneumoperitoneum. No significant fluid collection. Mild ascites in the abdomen and pelvis. No fluid collection. No pneumoperitoneum demonstrated. Vasculature: No abdominal aortic aneurysm. Lymph nodes: No pathologically enlarged lymph nodes. Urinary bladder: Unremarkable as visualized. Reproductive: Unremarkable as visualized. Bones/joints: Mild compression of the inferior endplate of T12, of undetermined age. Acute fracture not excluded. Severe chronic appearing L4 compression fracture. Soft tissues: Mild nonspecific anterior subcutaneous edema versus fibrosis. CT/CT abdomen pelvis wo con [id number] IMPRESSION: 1. Multiple dilated proximal small bowel loops with air-fluid levels. The mid/distal small bowel has an empty, decompressed appearance. Findings are consistent with small bowel obstruction. No ischemic change or perforation noted. 2. Diverticulosis of the colon. No evidence of acute diverticulitis. 3. Mild ascites in the abdomen and pelvis. No fluid collection. 4. Mild anterior subcutaneous edema. No hematoma noted. 5. Mild compression of the inferior endplate of T12, of undetermined age. Acute fracture not excluded.
[2022-01-05] VITALS (10 sets, daily range): BP systolic 105–155; BP diastolic 65–93; PULSE 80–89; RESP 17–21; TEMP 36.4–36.7; O2SAT 91–98
--- NOTE | 2022-01-05 00:39 | W.ED.EXTPRO ---
HPI - Extremity Problem General: Chief complaint: Extremity Injury, Lower Stated complaint: RIGHT HIP PAIN Time Seen by Provider: 01/04/22 23:29 History of Present Illness: 66 yo female patient presents to ER with RUQ pain. Pt states she fell a few days ago and came to ER with hip pain but negative. Pt states it really isnt her hip more RUQ. Pt denies any fever. Pt denies any n/v/d. Pt states last BM was yesterday Pt states she has had hard time passing gas. Associated symptoms: Deny chest pain, fever(s) or rash Review of Systems Const: Denies: fever(s), chills, body aches, change in appetite, change in weight, fatigue, malaise or diaphoresis Eyes: Denies: change in vision, blurry vision, blind spots, photophobia, eye discomfort, eye discharge, eye redness, floaters or seeing flashes ENMT: Denies: throat pain, uvular edema, enlarged tonsils, odynophagia, hoarseness, mouth pain, swelling of lips/tongue, oral sores, bleeding gums, dental pain, dry mouth, ear or mastoid pain, ear discharge, change in hearing, tinnitus, disequilibrium, nasal discharge, nasal congestion, post nasal drip or sinus pain Card: Denies: chest pain, palpitations, irregular heart rhythm, edema, swelling of feet/ankles, lightheadedness, syncope, pre-syncope, dyspnea on exertion, orthopnea, leg pain with exertion or acrocyanosis Resp: Denies: dyspnea, productive cough, non-productive cough, wheezing, stridor, pain on inspiration, change in phlegm color, hemoptysis or chest congestion GI: Denies: nausea, vomiting, hematemesis, dysphagia, diarrhea, constipation or rectal pain : Denies: flank pain, difficulty voiding, dysuria, urinary frequency, urinary urgency, urinary hesitancy or hematuria Musc: Denies: neck pain, back pain, extremity pain, extremity swelling, joint pain, joint swelling, joint redness, joint warmth or deformity Skin/Breast: Denies: rash, pruritus, erythema, sores, new lesions, changes in skin color or dry skin Neuro: Denies: headache(s), numbness in extremities, weakness in extremities, sensory changes, lack of coordination, difficulty walking, frequent falls, dizziness, vertigo, confusion, behavioral changes, Slurred speech present, difficulty communicating thoughts or seizure-like activity Psych: Denies: anxiety, depression, suicidal ideation or homicidal ideation Endo: Denies: polyuria, polydipsia, tired all the time, cold intolerance, excessive sweating, flushing, hot flashes or heat intolerance Maximo/Lymph: Denies: easy bruising, easy bleeding, petechiae, purpura, enlarged lymph nodes or tender lymph nodes All/Imm: Denies: urticaria, throat swelling, tongue swelling, facial swelling, acute wheezing or itchy eyes PFSH ED PFSH: Medical History Acute on chronic diastolic (congestive) heart failure Benign essential hypertension with target blood pressure below 140/90 Chronic respiratory failure with hypoxia and hypercapnia COPD (chronic obstructive pulmonary disease) Depression Diastolic congestive heart failure Hyperlipidemia Hypertension Moderate to severe mitral regurgitation Nonischemic cardiomyopathy Obesity Obesity hypoventilation syndrome Obstructive sleep apnea Pulmonary hypertension Restrictive lung disease Seizure disorder Sleep apnea Tricuspid regurgitation Type 2 diabetes mellitus Surgical History H/O mitral valve replacement History of Ulnar nerve compression Family History Brother CAD (coronary artery disease) Sister CAD (coronary artery disease) Grandmother Diabetes Mother Stroke Denies family history of Clotting disorder Dementia Chronic kidney disease (CKD) Suicide Anesthesia complication Bleeding disorder Lung disease Cancer Social History Smoking and tobacco status: current every day smoker cigarettes Packs smoked per day: 0.25 Years cigarettes smoked: 33 [ Other cigarette details: Hx of 1PPD x 30 Years, started 1991] Second hand smoke exposure: Yes Smoking risk assessment/counseling performed?: Yes Alcohol intake: never Counseling given: No Counseling given: No Caregiver/support person: Yes Lives independently: No Housing: Assisted Living Facility Marital status: / Current occupational status: retired and disabled History of recent travel: No Current gender identity: Female Physical Exam Const: COMMON NORMALS: no acute distress, patient oriented x3, healthy appearing, alert and well nourished GENERAL APPEARANCE: cooperative, comfortable, well kempt and well developed; not ill appearing ORIENTATION/CONSCIOUSNESS: Yes awake, Yes oriented to person, Yes oriented to place and Yes oriented to time HENMT: THROAT: no uvular edema Neck/C-Spine: COMMON NORMALS: full ROM, no lymphadenopathy, supple, no meningeal signs, no JVD and Thyroid normal GENERAL: Yes normal visual inspection and Yes trachea midline THYROID: Thyroid normal CERVICAL SPINE: Yes cervical ROM normal Lymph: LYMPHATIC: no lymphadenopathy noted and no lymphedema noted Chest: COMMONS NORMALS: normal inspection of the chest and normal palpation of entire chest wall Resp: COMMON NORMALS: normal respiratory effort, No retractions, No use of accessory muscles and clear to auscultation bilaterally EFFORT & INSPECTION: Yes able to speak in complete sentences and Yes symmetric chest movement AUSCULTATION: clear to auscultation bilaterally Cardio: COMMON NORMALS: no JVD, regular rate and regular rhythm RATE: regular rate RHYTHM: regular rhythm GI: COMMON NORMALS: Normal to inspection, nondistended, normoactive bowel sounds present, Soft to palpation, non-tender, No hepatosplenomegaly present, no masses and no bruits INSPECTION: Yes normal to inspection AUSCULTATION: Yes normoactive bowel sounds PALPATION: Yes Soft to palpation and Yes No hepatosplenomegaly present PERCUSSION: normal to percussion RECTAL EXAM: deferred Back/Pelvis: COMMON NORMALS: thoracic and lumbar spine normal to inspection, no thoracic nor lumbar tenderness, thoraco-lumbar ROM normal and straight leg raise negative bilaterally THORACIC SPINE/UPPER BACK: Yes normal to inspection LUMBAR SPINE/LOWER BACK: Yes normal to inspection Extremity: COMMON NORMALS: normal to inspection, full ROM and capillary refill normal GENERAL: Yes normal exam except as noted Neuro: COMMON NORMALS: patient oriented x3, CN's II-XII intact bilaterally, moves all extremities, no focal motor deficits, no sensory deficits noted and gait normal SENSORIUM/ORIENTATION: Yes alert, Yes oriented to person, Yes oriented to place and Yes oriented to time MENINGEAL SIGNS: Yes no meningeal signs CRANIAL NERVES: Yes CN normal except as noted SPEECH: speech normal GAIT: Yes Normal gait present SENSORY EXAM: Yes extremities MOTOR EXAM: 5/5 motor strength present throughout Psych: COMMON NORMALS: mental status grossly normal, Normal thought process present, cooperative, normal affect, speech normal, activity/motor behavior normal, denies hallucinations, denies homicidal ideation and denies suicidal ideation APPEARANCE: Yes grossly normal and Yes well kempt ATTITUDE: Yes calm ACTIVITY/MOTOR BEHAVIOR: Yes appropriate eye contact SPEECH: Yes normal speech THOUGHT PROCESS: Normal thought process present THOUGHT CONTENT: Yes Normal thought content present ATTENTION/CONCENTRATION: Yes attention grossly intact MEMORY/COGNITION: Yes memory grossly intact INSIGHT: Good insight present (Psych) JUDGEMENT: Good judgement present (Psych) Skin: COMMON NORMALS: no rashes or lesions noted, no wounds, turgor normal, no jaundice, no petechiae and no mottling GENERAL SKIN EXAM: no rashes or lesions noted and turgor normal Course Vital Signs: Vital signs: Vital Signs Temperature 97.6 F 01/04/22 23:18 Pulse Rate 87 01/04/22 23:24 Respiratory Rate 17 01/04/22 23:18 Blood Pressure 138/95 01/04/22 23:18 Pulse Oximetry 100 01/04/22 23:18 Oxygen Delivery Me thod 01/04/22 23:18 Oxygen Flow Rate 2 01/04/22 23:18 MDM - Extremity (Nontraumatic) Medical Decision Making Patient is well appearing non toxic and in no acute distress. 66 yo female patient presents to ER with RUQ pain. Pt states she fell a few days ago and came to ER with hip pain but negative. Pt states it really isnt her hip more RUQ. Pt denies any fever. Pt denies any n/v/d. Pt states last BM was yesterday Pt states she has had hard time passing gas. CT abd/pelvis reveals SBO. Labs pending at this time. I called and Dr. Floyd will consult in am. Patient will be admitted to Dr. Salcedo at this time. NG tube ordered and pt NPO Lab Data Radiology Impressions Abdomen/Pelvis CT 01/04/22 23:29 IMPRESSION: 1. Multiple dilated proximal small bowel loops with air-fluid levels. The mid/distal small bowel has an empty, decompressed appearance. Findings are consistent with small bowel obstruction. No ischemic change or perforation noted. 2. Diverticulosis of the colon. No evidence of acute diverticulitis. 3. Mild ascites in the abdomen and pelvis. No fluid collection. 4. Mild anterior subcutaneous edema. No hematoma noted. 5. Mild compression of the inferior endplate of T12, of undetermined age. Acute fracture not excluded. Discharge Plan Discharge Condition: Stable Prescriptions: No Action zinc 50 mg tablet 50 mg PO DAILY rosuvastatin 40 mg tablet 40 mg PO DAILY (DME) Diabetic Shoes See Rx Instructions .Route .MEDSUPPLY Qty: 1 0RF Rx Instructions: As directed ammonium lactate 12 % cream 1 applic topical DAILY Qty: 385 0RF albuterol sulfate 90 mcg/actuation HFA aerosol inhaler 1 puff INHALATION Q6H PRN (Reason: Shortness Of Breath) Qty: 8.5 3RF Cough Drops See Rx Instructions .ROUTE .COMPLEX Rx Instructions: may keep at bedside ondansetron 4 mg tablet,disintegrating 4 mg PO Q6H PRN (Reason: nausea and vomiting) Qty: 14 0RF naproxen [Naprosyn] 500 mg tablet 500 mg PO BID PRN (Reason: pain) Qty: 20 0RF Myrbetriq 25 mg tablet extended release 24 hr 25 mg PO DAILY@0700 promethazine-DM 6.25-15 mg/5 mL Syrup 5 ml PO Q6H PRN (Reason: Cough) Ozempic 0.25 mg or 0.5 mg(2 mg/1.5 mL) Pen Injector 0.5 mg SUBCUT Q7D Rx Instructions: on mondays cholecalciferol (vitamin D3) 25 mcg (1,000 unit) tablet 1,000 unit PO DAILY@07 hydroxyzine HCl 25 mg Tablet 25 mg PO Q8H PRN (Reason: Anxiety) SF 5000 Plus 1.1 % Cream See Rx Instructions .ROUTE .COMPLEX Rx Instructions: brush on teeth bid with use of regular tooth paste do not eat or drink 30 mins after (use at 07:00 & 20:00) aspirin 81 mg tablet,delayed release (DR/EC) 81 mg PO DAILY@07 bumetanide 1 mg tablet 1 mg PO DAILY@07 Acidophilus 175 mg PO DAILY@19 loperamide 2 mg Tablet 2 mg PO QID PRN (Reason: Diarrhea) Vitamin C 500 mg tablet 500 mg PO BID@ pantoprazole 40 mg tablet,delayed release (DR/EC) 40 mg PO DAILY@07 Nystop 100,000 unit/gram powder 1 applic topical BID@ Tresiba FlexTouch U-100 100 unit/mL (3 mL) insulin pen 10 unit SUBCUT BEDTIME@1999 insulin aspart U-100 [Novolog U-100 Insulin aspart] 100 unit/mL solution See Rx Instructions .ROUTE .COMPLEX Rx Instructions: PER SLIDING SCALE AC MEALS AND HS @ 05:30,11:00,16:00,20:00 150-200=0 units 201-250=2 units 251-300=4 units 301-350=6 units 351-400=8 units carbamide peroxide [Debrox] 6.5 % Drops See Rx Instructions .ROUTE .COMPLEX Rx Instructions: 5-10 GTTS EACH EAR MONTHLY. Januvia 100 mg Tablet 100 mg PO DAILY@0700 Flonase Sensimist 27.5 mcg/actuation [place],Suspension 1 spray INTRANASAL DAILY@0700 Daliresp 500 mcg tablet 500 mcg PO DAILY@0700 Trelegy Ellipta 100-62.5-25 mcg blister with device 1 inh inhalation DAILY@07 ipratropium-albuterol 0.5 mg-3 mg(2.5 mg base)/3 mL Solution For Nebulization 3 ml INHALATION Q4H PRN (Reason: Shortness Of Breath) acetaminophen [Tylenol Extra Strength] 500 mg Tablet 1,000 mg PO Q4H MDD 8 tabs PRN (Reason: Pain) magnesium hydroxide [Milk of Magnesia] 400 mg/5 mL Suspension See Rx Instructions .ROUTE .COMPLEX Rx Instructions: 30ML PO ONCE DAILY PRN IF NO BM FOR 3 DAYS bisacodyl [Dulcolax (bisacodyl)] 10 mg Suppository 10 mg DE DAILY PRN (Reason: Constipation) Rx Instructions: IF NO BM FROM MOM, IF CAN'T TAKE PO & NO RSLTS OF M.O.M. Fleet Enema 19-7 gram/118 mL Enema 118 ml DE DAILY PRN (Reason: Constipation) Rx Instructions: IF NO RESUTLS FROM M.O.M. gabapentin 300 mg capsule 300 mg PO BID@0700,2000 bisacodyl [Dulcolax (bisacodyl)] 5 mg Tablet,Delayed Release (Dr/Ec) 10 mg PO DAILY PRN (Reason: Constipation) melatonin 5 mg Tablet 5 mg PO BEDTIME@2000 pioglitazone [Actos] 15 mg Tablet 7.5 mg PO DAILY@0700 venlafaxine 75 mg Capsule,Extended Release 24hr 75 mg PO DAILY@0700 sodium chloride [Saline Nasal] 0.65 % Aerosol,[place] See Rx Instructions .ROUTE .COMPLEX Rx Instructions: SQUEEZE INTO DRY NOSTRILS BID THEN FOLLOW WITH BACTROBAN. 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
[2022-01-05 01:09] LABS: Basophils % 0.3 %; Eosinophils # 0.1 10^3/uL (0.0-0.8); Eosinophils % 1.4 %; Hematocrit 47.9 % (37.0-47.0); Hemoglobin 14.4 g/dL (11.5-15.3); Lymphocytes # 0.9 10^3/uL (0.8-4.8); Lymphocytes % 9.1 %; Mean Corpuscular HGB Conc 30.1 g/dL (30.0-36.0); Mean Corpuscular Hemoglobin 26.5 pg (28.0-34.0); Mean Corpuscular Volume 88.1 fl (81-99); Mean Platelet Volume 11.3 fL (7.4-10.4); Monocytes # 0.8 10^3/uL (0.2-0.9); Monocytes % 8.1 %; Neutrophils % 80.5 %; Nucleated Red Blood Cells % 0 %; Platelet Count 187 10^3/cmm (130-400); Red Blood Count 5.44 10^6/uL (4.1-5.3); Red Cell Distribution Width 15.6 % (12.1-15.1); White Blood Count 9.8 10^3/uL (4.0-10.0)
--- NOTE | 2022-01-05 01:17 | PC.NURSE ---
NG tube attempted. Pt did not tolerate well and refused second attempt.
[2022-01-05 01:35] LABS: Alanine Aminotransferase 11 U/L (0-33); Albumin Level 3.9 g/dL (3.5-5.2); Alkaline Phosphatase 80 U/L (35-105); Anion Gap 16.6 (5-19); Aspartate Amino Transferase 16 U/L (0-32); Blood Urea Nitrogen 18 mg/dL (8-23); Calcium 9.4 mg/dL (8.5-10.5); Carbon Dioxide 30 mmol/L (22-29); Chloride 96 mmol/L (98-107); Globulin 3.1 g/dL (1.3-4.6); Glomerular Filtration Rate 55.1 mL/min (90-130); Glucose 126 mg/dL (65-115); Lipase 72 U/L (13-60); Osmolality Calculated 289 mOsm/kg (285-295); Potassium 4.6 mmol/L (3.5-5.1); Sodium 138 mmol/L (136-145); Total Bilirubin 0.5 mg/dL (0.15-1.2)
--- NOTE | 2022-01-05 03:24 | PM.HP ---
Providers/Chief Complaint Admitting Physician: Gladys Salcedo MD Primary Care Provider: Tashi Acosta MD Chief Complaint: RIGHT HIP PAIN History of Present Illness Yaquelin Loera is a 66 year old female with PMH severe restrictive lung disease, chronic hypercapnic respiratory failure, obesity hypoventilation syndrome, small airways disease?, non ischemic cardiomyopathy. she presented to the ER today c/o abdominal pain, nausea inability to pass flatus. She rates the pain as being located in the epigastric to the right upper quadrant region. Stabbing type, 9 out of [address] of the abdomen shows small bowel obstruction. Last bowel movement was yesterday. Review of Systems General: Reports: 10 or more systems reviewed and unremarkable except in HPI and below Const: Denies: fever(s), chills or body aches Eyes: Denies: change in vision, blurry vision or photophobia ENMT: Reports: hoarseness; Denies: throat pain, enlarged tonsils, odynophagia or nasal congestion Card: Denies: chest pain, palpitations, irregular heart rhythm, edema, swelling of feet/ankles, lightheadedness, pre-syncope, dyspnea on exertion or orthopnea Resp: Denies: dyspnea, productive cough, non-productive cough, wheezing, stridor, pain on inspiration, change in phlegm color, hemoptysis or chest congestion GI: Denies: abdominal pain, nausea, vomiting, hematemesis, coffee ground emesis, dysphagia, heartburn, diarrhea, constipation, GI cramping, change in stool character, hematochezia or melena : Denies: flank pain, difficulty voiding, dysuria, urinary frequency, urinary urgency, urinary hesitancy or hematuria Musc: Denies: neck pain, back pain, extremity pain, joint swelling, joint warmth or deformity Neuro: Denies: headache(s), numbness in extremities, weakness in extremities, sensory changes, difficulty walking, frequent falls, dizziness, vertigo, behavioral changes, Slurred speech present or seizure-like activity Psych: Denies: anxiety, depression, suicidal ideation or homicidal ideation Endo: Denies: polyuria, polydipsia, tired all the time, cold intolerance or hot flashes Maximo/Lymph: Denies: easy bruising or easy bleeding Medications/Allergies Home Medications Medication Instructions Recorded Confirmed Last Taken Type acetaminophen 500 mg tablet 1,000 mg PO Q4H PRN Pain 05/16/19 12/08/21 11/08/20 History (Tylenol Extra Strength) bisacodyl 10 mg rectal suppository 10 mg ID DAILY PRN Constipation 05/16/19 12/08/21 Unknown History (Dulcolax (bisacodyl)) bisacodyl 5 mg tablet,delayed 10 mg PO DAILY PRN Constipation 05/16/19 12/08/21 Unknown History release (Dulcolax (bisacodyl)) carbamide peroxide 6.5 % ear drops See Rx Instructions .Route .COMPLEX 05/16/19 12/08/21 06/03/19 History (Debrox) fluticasone fur. 100 mcg-umeclid 1 inh inhalation DAILY@05/16/19 12/08/21 12/09/20 History 62.5 mcg-vilant 25 mcg inhalat.powder (Trelegy Ellipta) fluticasone furoate 27.5 1 spray intranasal DAILY@69905/16/19 12/08/21 12/09/20 History mcg/actuation nasal spray,suspension (Flonase Sensimist) gabapentin 300 mg capsule 300 mg PO BID@07,199905/16/19 12/08/21 12/09/20 History insulin aspart U-100 100 unit/mL See Rx Instructions .Route .COMPLEX 05/16/19 12/08/21 06/03/19 History subcutaneous solution (Novolog U-100 Insulin aspart) insulin degludec 100 unit/mL (3 10 unit SUBCUT BEDTIME@199905/16/19 12/08/21 12/08/20 History mL) subcutaneous pen (Tresiba FlexTouch U-100 insulin) ipratropium 0.5 mg-albuterol 3 mg 3 ml inhalation Q4H PRN Shortness 05/16/19 12/08/21 Unknown History (2.5 mg base)/3 mL nebulization Of Breath soln magnesium hydroxide 400 mg/5 mL See Rx Instructions .Route .COMPLEX 05/16/19 11/03/21 Unknown History oral suspension (Milk of Magnesia) melatonin 5 mg tablet 5 mg PO BEDTIME@199905/16/19 12/08/21 12/08/20 History roflumilast 500 mcg tablet 500 mcg PO DAILY@00 05/16/19 12/08/21 12/09/20 History (Daliresp) sitagliptin 100 mg tablet (Januvia) 100 mg PO DAILY@0705/16/19 12/08/21 12/09/20 History sodium phosphates 19 gram-7 118 ml ID DAILY PRN Constipation 05/16/19 12/08/21 Unknown History gram/118 mL enema (Fleet Enema) pioglitazone 15 mg tablet (Actos) 7.5 mg PO DAILY@0705/31/19 12/08/21 12/09/20 History sodium chloride 0.65 % nasal spray See Rx Instructions .Route .COMPLEX 05/31/19 11/03/21 12/09/20 History aerosol (Saline Nasal) venlafaxine 75 mg capsule,extended 75 mg PO DAILY@69905/31/19 12/08/21 12/09/20 History release 24 hr levetiracetam 500 mg tablet See Rx Instructions .Route .COMPLEX 06/03/19 12/08/21 12/09/20 History 500 mg Cough Drops See Rx Instructions .Route .COMPLEX 01/30/20 12/08/21 Unknown History naproxen 500 mg tablet (Naprosyn) 500 mg PO BID PRN pain #20 tabs 01/30/20 11/03/21 Unknown Rx ondansetron 4 mg disintegrating 4 mg PO Q6H PRN nausea and 01/30/20 12/08/21 10/28/20 06:49 Rx tablet vomiting #14 tabs mirabegron 25 mg tablet,extended 25 mg PO DAILY@69910/28/20 12/08/21 12/09/20 History release 24 hr (Myrbetriq) promethazine-DM 6.25 mg-15 mg/5 mL 5 ml PO Q6H PRN Cough 10/28/20 12/08/21 Unknown History oral syrup Acidophilus 175 mg PO DAILY@12/09/20 12/08/21 12/08/20 History ascorbic acid (vitamin C) 500 mg 500 mg PO BID@,12/09/20 12/08/21 12/09/20 07:00 History tablet (Vitamin C) aspirin 81 mg tablet,delayed 81 mg PO DAILY@12/09/20 12/08/21 12/09/20 History release bumetanide 1 mg tablet 1 mg PO DAILY@12/09/20 12/08/21 12/09/20 History cholecalciferol (vitamin D3) 25 1,000 unit PO DAILY@12/09/20 12/08/21 12/09/20 History mcg (1,000 unit) tablet fluoride (sodium) 1.1 % dental See Rx Instructions .Route .COMPLEX 12/09/20 12/08/21 Unknown History cream (SF 5000 Plus) hydroxyzine HCl 25 mg tablet 25 mg PO Q8H PRN Anxiety 12/09/20 12/08/21 Unknown History loperamide 2 mg tablet 2 mg PO QID PRN Diarrhea 12/09/20 11/03/21 Unknown History nystatin 100,000 unit/gram topical 1 applic topical BID@12/09/20 12/08/21 Unknown History powder (Nystop) pantoprazole 40 mg tablet,delayed 40 mg PO DAILY@12/09/20 12/08/21 12/09/20 History release semaglutide 0.25 mg or 0.5 mg (2 0.5 mg SUBCUT Q7D 12/09/20 12/08/21 12/06/20 History mg/1.5 mL) subcutaneous pen injector (Ozempic) albuterol sulfate 90 mcg/actuation 1 puff inhalation Q6H PRN 07/22/21 12/08/21 Unknown Rx aerosol inhaler Shortness Of Breath #8.5 grams rosuvastatin 40 mg tablet 40 mg PO DAILY 09/08/21 12/08/21 Unknown History zinc 50 mg tablet 50 mg PO DAILY 09/08/21 12/08/21 Unknown History Diabetic Shoes #1 ea 11/03/21 12/08/21 Unknown Rx ammonium lactate 12 % topical cream 1 applic topical DAILY #385 grams 11/03/21 12/08/21 Unknown Rx lidocaine 5 % topical patch 1 patch topical DAILY PRN pain 30 12/29/21 Unknown Rx days #30 ea menthol 5 % topical gel (Biofreeze 1 ea topical BID PRN pain 10 days 12/29/21 Unknown Rx (menthol)) #1 tube Allergies Allergy/AdvReac Type Severity Reaction Status Date / Time metformin Allergy ADR-Dry Verified 01/04/22 23:23 Mucus Membranes Penicillins Allergy ALGY-Anaphy Verified 01/04/22 23:23 laxis Sulfa (Sulfonamide Allergy ALGY-Anaphy Verified 01/04/22 23:23 Antibiotics) laxis PFSH Acute PFSH: Medical History Acute on chronic diastolic (congestive) heart failure Benign essential hypertension with target blood pressure below 140/90 Chronic respiratory failure with hypoxia and hypercapnia COPD (chronic obstructive pulmonary disease) Depression Diastolic congestive heart failure Hyperlipidemia Hypertension Moderate to severe mitral regurgitation Nonischemic cardiomyopathy Obesity Obesity hypoventilation syndrome Obstructive sleep apnea Pulmonary hypertension Restrictive lung disease Seizure disorder Sleep apnea Tricuspid regurgitation Type 2 diabetes mellitus Surgical History H/O mitral valve replacement History of Ulnar nerve compression Family History Brother CAD (coronary artery disease) Sister CAD (coronary artery disease) Grandmother Diabetes Mother Stroke Denies family history of Clotting disorder Dementia Chronic kidney disease (CKD) Suicide Anesthesia complication Bleeding disorder Lung disease Cancer Social History Smoking and tobacco status: current every day smoker cigarettes Packs smoked per day: 0.25 Years cigarettes smoked: 33 [ Other cigarette details: Hx of 1PPD x 30 Years, started 1991] Second hand smoke exposure: Yes Smoking risk assessment/counseling performed?: Yes Alcohol intake: never Counseling given: No Counseling given: No Caregiver/support person: Yes Lives independently: No Housing: Assisted Living Facility Marital status: / Current occupational status: retired and disabled History of recent travel: No Current gender identity: Female Vitals/I&O/Wt Last Vital Signs Temp 97.6 F 01/04/22 23:18 Pulse 87 01/04/22 23:24 Resp 17 01/04/22 23:18 BP 138/95 01/04/22 23:18 Pulse Ox 100 01/04/22 23:18 O2 Del Method 01/04/22 23:18 O2 Flow Rate 2 01/04/22 23:18 Physical Exam Narrative: General: No acute distress, AO x3 HEENT: PERRLA, pupils bilaterally equal and reactive, pallors not present Chest: Normal vesicular breath sounds, no added sounds, equal good air entry bilaterally CVS: S1-S2 regular, no murmurs, no tachycardia, no gallops, no rubs Abdomen: distended, discomofrt to palpation epigastric region Neuro: No focal deficits, no facial deformity, AO x3, power 5/5 in all limbs Data : 01/05/22 00:53 10 00:53 Other Labs: Radiology Impressions Abdomen/Pelvis CT 01/04/22 23:29 IMPRESSION: 1. Multiple dilated proximal small bowel loops with air-fluid levels. The mid/distal small bowel has an empty, decompressed appearance. Findings are consistent with small bowel obstruction. No ischemic change or perforation noted. 2. Diverticulosis of the colon. No evidence of acute diverticulitis. 3. Mild ascites in the abdomen and pelvis. No fluid collection. 4. Mild anterior subcutaneous edema. No hematoma noted. 5. Mild compression of the inferior endplate of T12, of undetermined age. Acute fracture not excluded. Laboratory Results WBC 9.8 10^3/uL (4.0-10.0) 01/05/22 00:53 RBC 5.44 10^6/uL (4.1-5.3) H 01/05/22 00:53 Hgb 14.4 g/dL (11.5-15.3) 01/05/22 00:53 Hct 47.9 % (37.0-47.0) H 01/05/22 00:53 MCV 88.1 fl (81-99) 01/05/22 00:53 MCH 26.5 pg (28.0-34.0) L 01/05/22 00:53 MCHC 30.1 g/dL (30.0-36.0) 01/05/22 00:53 RDW 15.6 % (12.1-15.1) H 01/05/22 00:53 Plt Count 187 10^3/cmm (130-400) 01/05/22 00:53 MPV 11.3 fL (7.4-10.4) H 01/05/22 00:53 Neut % (Auto) 80.5 % 01/05/22 00:53 Lymph % (Auto) 9.1 % 01/05/22 00:53 [place] % (Auto) 8.1 % 01/05/22 00:53 Eos % (Auto) 1.4 % 01/05/22 00:53 Baso % (Auto) 0.3 % 01/05/22 00:53 Neut # (Auto) 7.90 10^3/uL (1.8-7.7) H 01/05/22 00:53 Lymph # (Auto) 0.9 10^3/uL (0.8-4.8) 01/05/22 00:53 [place] # (Auto) 0.8 10^3/uL (0.2-0.9) 01/05/22 00:53 Eos # (Auto) 0.1 10^3/uL (0.0-0.8) 01/05/22 00:53 Baso # (Auto) 0.0 10^3/uL (0.0-0.1) 01/05/22 00:53 Nucleated RBC % (auto) 0 % 01/05/22 00:53 Nucleated RBCs # 0.0 /100WBC 01/05/22 00:53 Sodium 138 mmol/L (136-145) 01/05/22 00:53 Potassium 4.6 mmol/L (3.5-5.1) 01/05/22 00:53 Chloride 96 mmol/L (98-107) L 01/05/22 00:53 Carbon Dioxide 30 mmol/L (22-29) H 01/05/22 00:53 Anion Gap 16.6 (5-19) 01/05/22 00:53 BUN 18 mg/dL (8-23) 01/05/22 00:53 Creatinine 1.0 mg/dL (0.5-0.9) H 01/05/22 00:53 GFR Calculation 55.1 mL/min (90-130) L 01/05/22 00:53 Glucose 126 mg/dL (65-115) H 01/05/22 00:53 Calculated Osmolality 289 mOsm/kg (285-295) 01/05/22 00:53 Calcium 9.4 mg/dL (8.5-10.5) 01/05/22 00:53 Total Bilirubin 0.5 mg/dL (0.15-1.2) 01/05/22 00:53 AST 16 U/L (0-32) 01/05/22 00:53 ALT 11 U/L (0-33) 01/05/22 00:53 Alkaline Phosphatase 80 U/L (35-105) 01/05/22 00:53 Total Protein 7.0 g/dL (6.6-8.7) 01/05/22 00:53 Albumin 3.9 g/dL (3.5-5.2) 01/05/22 00:53 Globulin 3.1 g/dL (1.3-4.6) 01/05/22 00:53 Lipase 72 U/L (13-60) H 01/05/22 00:53 A&P Assessment and plan (1) Small bowel obstruction: CT of the abdomen with multiple dilated proximal small bowel loops with air-fluid levels. The mid/distal small bowel has an empty, decompressed appearance. Findings are consistent with small bowel obstruction. No ischemic change or perforation. noted. Keep n.p.o., bowel rest, NGT to low intermittent suction. Pain control with as needed morphine and Toradol as needed Gentle IV hydration while n.p.o. with normal saline at 50 cc an hour given history of heart failure. Insulin sliding scale for diabetes. Will convert as many medications as possible from p.o. to IV. Attestations Medical Necessity Statement*: Anticipate greater than 2 midnight admission for management of small bowel obstruction Coding Level of Care Code Acute Flaker Tender for Kanchan Abdi Diagnoses Small bowel obstruction K56.609
[2022-01-05] MEDS: lidocaine 5% Patch 1 PATCH TOPICAL (08:28)
[2022-01-05] MEDS: sodium chloride 0.9% 1,000 ML 50 ML IV (08:28)
[2022-01-05] MEDS: enoxaparin 40 mg/0.4 mL Syringe SUBCUT (08:28)
[2022-01-05] MEDS: ipratropium-albuterol 3 mL Neb INHALATION ×3 (08:36→19:30)
--- NOTE | 2022-01-05 09:33 | PC.PHAR ---
pt is from [facility] [phone]-per raquel states the pt is suppose to be on tresiba u-200 pts mar has 100 u-
--- NOTE | 2022-01-05 10:17 | PM.MISC ---
Miscellaneous Note Note: Patient did not tolerate NG tube, she does not want NG tube placement because of her previous intubation experiences She did not allow us to put another NGT She is passing gas Abdomen is soft however distended No active pain After emesis She had 1 episode of emesis last night surgeon has to see her today Morbidly obese female She lives in a long-term Awake and alert Nonfocal neuro exam Currently on 2 L nasal cannula Abdomen is distended however bowel sounds are present, soft nontender Passing gas S1, S2 Awake and alert Pleasant during my evaluation SBO Conservative management She did not tolerate NG tube placement She is passing gas We will follow-up with general surgery recommendations Serial abdominal exam and KUB Potassium 4.6 Check magnesium No abdominal pain Continue IV fluids, keep her n.p.o. Full code
[2022-01-05 13:15] LABS: Glucose Point of Care 83 mg/dL (70-110)
--- NOTE | 2022-01-05 14:47 | P.CONIM_ITS ---
Providers/Reason For Consult Consulting Physician/Specialty*: General Surgery/Jeremy lFoyd MD, FACS, RPVI Reason for Consult*: Small bowel obstruction Attending Physician: Lucas Raya MD Primary Care Provider: Tashi Acosta MD History of Present Illness History of Present Illness Yaquelin Loera is a 66 year old female She fell about a week ago after she tripped, hit her right side, and since then was complaining about pain in the abdominal wall. The pain was an on and off, getting worse with movements. Because the pain did not subside, she decided to seek medical attention. She was evaluated in the emergency room with a CT scan, which showed accidental finding of small bowel obstruction. She was admitted for observation to medicine and surgery was consulted. Multiple medical problems as outlined below. History of x2. She does have chronic back pain. She denies any changes in her back pain after the fall. The patient lives in a fci. She stated that she is independent in her activities of daily living. She is morbidly obese, was not able to lose any weight. Review of Systems Narrative: 10 point review of system is negative except as per above Medications/Allergies Home Medications Medication Instructions Recorded Confirmed Last Taken Type acetaminophen 500 mg tablet 1,000 mg PO Q4H PRN Pain 05/16/19 01/05/22 11/08/20 History (Tylenol Extra Strength) bisacodyl 10 mg rectal suppository 10 mg [place] DAILY PRN Constipation 05/16/19 01/05/22 Unknown History (Dulcolax (bisacodyl)) bisacodyl 5 mg tablet,delayed 10 mg PO DAILY PRN Constipation 05/16/19 01/05/22 Unknown History release (Dulcolax (bisacodyl)) carbamide peroxide 6.5 % ear drops See Rx Instructions .Route .COMPLEX 05/16/19 01/05/22 06/03/19 History (Debrox) fluticasone fur. 100 mcg-umeclid 1 inh inhalation DAILY@07 05/16/19 01/05/22 12/09/20 History 62.5 mcg-vilant 25 mcg inhalat.powder (Trelegy Ellipta) fluticasone furoate 27.5 1 spray intranasal DAILY@0705/16/19 01/05/22 12/09/20 History mcg/actuation nasal spray,suspension (Flonase Sensimist) gabapentin 300 mg capsule 300 mg PO BID@0700,199905/16/19 01/05/22 12/09/20 H istory insulin aspart U-100 100 unit/mL See Rx Instructions .Route .COMPLEX 05/16/19 01/05/22 06/03/19 History subcutaneous solution (Novolog U-100 Insulin aspart) magnesium hydroxide 400 mg/5 mL See Rx Instructions .Route .COMPLEX 05/16/19 01/05/22 Unknown History oral suspension (Milk of Magnesia) melatonin 5 mg tablet 5 mg PO BEDTIME@199905/16/19 01/05/22 12/08/20 History roflumilast 500 mcg tablet 500 mcg PO DAILY@69905/16/19 01/05/22 12/09/20 History (Daliresp) sitagliptin 100 mg tablet (Januvia) 100 mg PO DAILY@0700 05/16/19 01/05/22 12/09/20 History sodium phosphates 19 gram-7 118 ml [place] DAILY PRN Constipation 05/16/19 01/05/22 Unknown History gram/118 mL enema (Fleet Enema) pioglitazone 15 mg tablet (Actos) 7.5 mg PO DAILY@0700 05/31/19 01/05/22 12/09/20 History sodium chloride 0.65 % nasal spray See Rx Instructions .Route .COMPLEX 05/31/19 01/05/22 12/09/20 History aerosol (Saline Nasal) venlafaxine 75 mg capsule,extended 75 mg PO DAILY@0700 05/31/19 01/05/22 12/09/20 History release 24 hr levetiracetam 500 mg tablet See Rx Instructions .Route .COMPLEX 06/03/19 01/05/22 12/09/20 History 500 mg Cough Drops See Rx Instructions .Route .COMPLEX 01/30/20 01/05/22 Unknown History naproxen 500 mg tablet (Naprosyn) 500 mg PO BID PRN pain #20 tabs 01/30/20 01/05/22 Unknown Rx ondansetron 4 mg disintegrating 4 mg PO Q6H PRN nausea and 01/30/20 01/05/22 10/28/20 06:49 Rx tablet vomiting #14 tabs mirabegron 25 mg tablet,extended 25 mg PO DAILY@0700 10/28/20 01/05/22 12/09/20 History release 24 hr (Myrbetriq) promethazine-DM 6.25 mg-15 mg/5 mL 5 ml PO Q6H PRN Cough 10/28/20 01/05/22 Unk nown History oral syrup Acidophilus 175 mg PO DAILY@12/09/20 01/05/22 12/08/20 History aspirin 81 mg tablet,delayed 81 mg PO DAILY@12/09/20 01/05/22 12/09/20 History release fluoride (sodium) 1.1 % dental See Rx Instructions .Route .COMPLEX 12/09/20 01/05/22 Unknown History cream (SF 5000 Plus) hydroxyzine HCl 25 mg tablet 25 mg PO Q8H PRN Anxiety 12/09/20 01/05/22 Unknown History loperamide 2 mg tablet 2 mg PO QID PRN Diarrhea 12/09/20 01/05/22 Unknown History pantoprazole 40 mg tablet,delayed 40 mg PO DAILY@12/09/20 01/05/22 12/09/20 History release semaglutide 0.25 mg or 0.5 mg (2 0.5 mg SUBCUT Q7D 12/09/20 01/05/22 12/06/20 History mg/1.5 mL) subcutaneous pen injector (Ozempic) albuterol sulfate 90 mcg/actuation 1 puff inhalation Q6H PRN 07/22/21 01/05/22 Unknown Rx aerosol inhaler Shortness Of Breath #8.5 grams rosuvastatin 40 mg tablet 40 mg PO DAILY@09/08/21 01/05/22 Unknown History Diabetic Shoes #1 ea 11/03/21 01/05/22 Unknown Rx ammonium lactate 12 % topical cream 1 applic topical DAILY #385 grams 11/03/21 01/05/22 Unknown Rx lidocaine 5 % topical patch 1 patch topical DAILY PRN pain 30 12/29/21 01/05/22 Unknown Rx days #30 ea bumetanide 0.5 mg tablet 0.5 mg PO DAILY@07 01/05/22 01/05/22 Unknown History carboxymethylcellulose sodium 0.5 1 - 2 drp ophthalmic (eye) .EVERY 01/05/22 Unknown History % eye drops (Refresh Tears) 2 HOURS PRN Dry Eye(S) cholecalciferol (vitamin D3) 50 50 mcg PO DAILY@07 01/05/22 01/05/22 Unknown History mcg (2,000 unit) capsule (Vitamin D3) clotrimazole 1 % topical cream See Rx Instructions .Route .COMPLEX 01/05/22 01/05/22 Unknown History insulin degludec 200 unit/mL (3 10 unit SUBCUT BEDTIME 01/05/22 01/05/22 Unknown History mL) subcutaneous pen (Tresiba FlexTouch U-200 insulin) ipratropium 0.5 mg-albuterol 3 mg 3 ml inhalation Q4H PRN Shortness 01/05/22 01/05/22 Unknown History (2.5 mg base)/3 mL nebulization Of Breath soln zinc acetate 50 mg (zinc) capsule 50 mg PO DAILY@07 01/05/22 01/05/22 Unknown History Allergies Allergy/AdvReac Type Severity Reaction Status Date / Time metformin Allergy ADR-Dry Verified 01/05/22 08:52 Mucus Membranes Penicillins Allergy ALGY-Anaphy Verified 01/05/22 08:52 laxis Sulfa (Sulfonamide Allergy ALGY-Anaphy Verified 01/05/22 08:52 Antibiotics) laxis Current Medications Generic Name Dose Route Start Last Admin Trade Name Freq PRN Reason Stop Dose Admin Albuterol/Ipratropium 3 ml 01/05/22 14:00 01/05/22 14:44 Ipratropium-Albuterol 3 Ml Neb INHALATION 3 ml Q6H.RESP MARCO Administration Enoxaparin Sodium 40 mg 01/05/22 08:00 01/05/22 08:28 Enoxaparin 40 Mg/0.4 Ml Syringe SUBCUT 40 mg Q24H MARCO Administration Sodium Chloride 1,000 mls @ 50 mls/hr 01/05/22 06:30 01/05/22 08:28 Sodium Chloride 0.9% IV 50 mls/hr .Q20H MARCO Administration Levetiracetam 500 mg/ Sodium 105 mls @ 420 mls/hr 01/05/22 09:00 01/05/22 10:30 Chloride IV Infused DAILY MARCO Infusion Insulin Human Lispro 0 unit 01/05/22 08:00 01/05/22 13:07 Insulin Lispro 100 Unit/1 Ml SUBCUT Not Given WM&BEDTIME [facility] Protocol Lidocaine 1 patch 01/05/22 06:29 01/05/22 08:28 Lidocaine 5% Patch TOPICAL 1 patch DAILY PRN Administration pain Roflumilast 500 mcg 01/05/22 07:00 01/05/22 08:12 Roflumilast 500 Mcg Tablet PO Not Given DAILY@0700 [facility] Venlafaxine HCl 75 mg 01/05/22 07:00 01/05/22 08:12 Venlafaxine Er (24hr) 75 Mg Capsule PO Not Given DAILY@0700 [facility] PFSH Acute PFSH: Medical History Acute on chronic diastolic (congestive) heart failure Benign essential hypertension with target blood pressure below 140/90 Chronic respiratory failure with hypoxia and hypercapnia COPD (chronic obstructive pulmonary disease) Depression Diastolic congestive heart failure Hyperlipidemia Hypertension Moderate to severe mitral regurgitation Nonischemic cardiomyopathy Obesity Obesity hypoventilation syndrome Obstructive sleep apnea Pulmonary hypertension Restrictive lung disease Seizure disorder Sleep apnea Tricuspid regurgitation Type 2 diabetes mellitus Surgical History H/O mitral valve replacement History of Ulnar nerve compression Family History Brother CAD (coronary artery disease) Sister CAD (coronary artery disease) Grandmother Diabetes Mother Stroke Denies family history of Clotting disorder Dementia Chronic kidney disease (CKD) Suicide Anesthesia complication Bleeding disorder Lung disease Cancer Social History Smoking and tobacco status: current every day smoker cigarettes Packs smoked per day: 0.25 Years cigarettes smoked: 33 [ Other cigarette details: Hx of 1PPD x 30 Years, started 1991] Second hand smoke exposure: Yes Smoking risk assessment/counseling performed?: Yes Alcohol intake: never Counseling given: No Counseling given: No Caregiver/support person: Yes Lives independently: No Housing: Assisted Living Facility Marital status: / Current occupational status: retired and disabled History of recent travel: No Current gender identity: Female Vitals/I&O/Wt Last Vital Signs Temp 97.9 F 01/05/22 08:00 Pulse 85 01/05/22 14:46 Resp 18 01/05/22 14:46 BP 119/79 01/05/22 08:00 Pulse Ox 98 01/05/22 14:46 O2 Del Method 01/05/22 14:46 O2 Flow Rate 2 01/05/22 14:46 01/04/22 01/05/22 01/05/22 22:59 06:59 14:59 Intake Total 0 / 0 155 / 155 Output Total 300 / 300 Balance -300 / -300 155 / 155 Physical Exam Narrative: General: No acute distress, morbidly obese Psych: [AAOx3] Eyes: [sclerae are white] Head/ENT: [normocephalic, symmetric] CV: [regular] pulse, [tachychardic], no JVD Lungs: [symmetrical chest rise] Abdomen: [soft, ND, mild tenderness to palpation along the right aspect of the abdominal wall. Abdomen is morbidly obese, exam is limited therefore. No bruises.] Ext: [no obvious traumatic deformities] Skin: warm Data : 01/05/22 00:53 01/05/22 00:53 A&P Assessment and plan (1) Small bowel obstruction: (2) T12 vertebral fracture: (3) Fall: Plan The patient has no GI symptoms which are consistent with a small bowel obstruction. It seems that it is an accidental finding on the CT scan as it has no clinical significance. Her pain is limited to abdominal wall. No indications for any surgical intervention. Okay to advance diet as tolerated. Discharge home if tolerates regular diet. The patient does have chronic back pain, there is a T12 indeterminate age fracture. The patient does not have point tenderness at this location. She will need a consultation of the process laboratory specialist, it can be done as an outpatient. Discussed with the primary team. At this time general surgery will sign off. Please call with questions/concerns. Coding Level of Care Code Acute Flooring Salesperson for Chg Fwd Diagnoses Small bowel obstruction K56.609 T12 vertebral fracture S22.089A Fall W19.XXXA
[2022-01-05 17:29] LABS: Glucose Point of Care 77 mg/dL (70-110)
[2022-01-05] MEDS: ketorolac 30 mg/mL INJ 15 MG IVP (18:44)
[2022-01-05 21:52] LABS: Glucose Point of Care 85 mg/dL (70-110)
[2022-01-05 23:49] LABS: Urine Appearance SL Hazy (CLEAR); Urine Color Yellow (Yellow)
[2022-01-05 23:50] LABS: Add Urine Microscopic? YES; Bilirubin Urine 1+ (Negative); Blood Urine Neg (Negative); Glucose Urine UA Norm (Normal); Ketones Urine 2+ (Negative); Leukocyte Esterase Urine 1+ (Negative); Nitrate Urine Negative (Negative); Protein Urine 1+ (Negative); Specific Gravity, Urine 1.025 (1.005-1.030); Urobilinogen Urine 1 mg/dL (Negative); pH Urine 5 (5-7)
[2022-01-05 23:59] LABS: RBC Urine 0-4 /hpf (0-2); Renal Epithelial Cells Urine 0-2 /hpf; WBC Urine 0-4 /hpf (0-5)
[2022-01-06] VITALS (8 sets, daily range): BP systolic 105–132; BP diastolic 69–84; PULSE 82–90; RESP 16–28; TEMP 36.4–36.9; O2SAT 94–98
[2022-01-06] LABS: Add Urine Culture? No; Amorphous Sediment Urine 1+ /hpf; Bacteria Urine 1+ /hpf; Coarse Granular Casts Urine 0-1 /lpf; Fine Granular Casts Urine 0-4 /lpf; Hyaline Casts Urine 0-4 /lpf
[2022-01-06] MEDS: ipratropium-albuterol 3 mL Neb INHALATION ×2 (02:03→08:31)
[2022-01-06] MEDS: sodium chloride 0.9% 1,000 ML 50 ML IV (02:43)
[2022-01-06] MEDS: lidocaine 5% Patch 1 PATCH TOPICAL (02:43)
[2022-01-06 03:17] LABS: Basophils % 0.4 %; Eosinophils # 0.2 10^3/uL (0.0-0.8); Eosinophils % 4.1 %; Hemoglobin 12.6 g/dL (11.5-15.3); Lymphocytes # 0.7 10^3/uL (0.8-4.8); Lymphocytes % 13.7 %; Mean Corpuscular HGB Conc 29.3 g/dL (30.0-36.0); Mean Corpuscular Hemoglobin 26.4 pg (28.0-34.0); Mean Platelet Volume 11.5 fL (7.4-10.4); Monocytes # 0.6 10^3/uL (0.2-0.9); Monocytes % 10.7 %; Neutrophils # 3.77 10^3/uL (1.8-7.7); Neutrophils % 70.9 %; Nucleated Red Blood Cells % 0 %; Platelet Count 153 10^3/cmm (130-400); Red Blood Count 4.78 10^6/uL (4.1-5.3); Red Cell Distribution Width 15.7 % (12.1-15.1); White Blood Count 5.3 10^3/uL (4.0-10.0)
[2022-01-06 03:46] LABS: Alanine Aminotransferase 10 U/L (0-33); Albumin Level 3.5 g/dL (3.5-5.2); Alkaline Phosphatase 69 U/L (35-105); Aspartate Amino Transferase 17 U/L (0-32); Blood Urea Nitrogen 17 mg/dL (8-23); Calcium 8.5 mg/dL (8.5-10.5); Carbon Dioxide 28 mmol/L (22-29); Chloride 103 mmol/L (98-107); Globulin 2.9 g/dL (1.3-4.6); Glomerular Filtration Rate 62.3 mL/min (90-130); Glucose 154 mg/dL (65-115); Magnesium 1.9 mg/dL (1.7-2.3); Osmolality Calculated 297 mOsm/kg (285-295); Sodium 141 mmol/L (136-145); Total Bilirubin 0.4 mg/dL (0.15-1.2); Total Protein 6.4 g/dL (6.6-8.7)
--- NOTE | 2022-01-06 04:00 | XRR_ITS ---
PROCEDURE INFORMATION: Exam: XR Abdomen Exam date and time: 01/06/2022 3:55 AM Age: 66 years old Clinical indication: Other: Sbo TECHNIQUE: Imaging protocol: Radiologic exam of the abdomen. Views: Frontal supine view of the abdomen. 1 View. COMPARISON: CT abdomen pelvis con [id number] 01/04/2022 11:45 PM FINDINGS: Gastrointestinal tract: Multiple mid abdominal dilated small bowel loops. Very minimal colon gas. Bones/joints: No acute osseous abnormality. Soft tissues: Large body habitus. XR/XR KUB portable [id number] IMPRESSION: Findings suggestive of small-bowel obstruction.
[2022-01-06 04:06] LABS: Anion Gap 14.2 (5-19); Potassium 4.2 mmol/L (3.5-5.1)
[2022-01-06] MEDS: roflumilast 500 mcg Tablet PO (06:15)
[2022-01-06 06:49] LABS: Glucose Point of Care 112 mg/dL (70-110)
[2022-01-06] MEDS: enoxaparin 40 mg/0.4 mL Syringe SUBCUT (07:57)
--- NOTE | 2022-01-06 08:07 | PM.DCS ---
Discharge Providers Date of Admission: 01/05/22 00:44 Date of Discharge: January 06, 2022 Attending Provider at Admission: Gladys Salcedo MD Attending Provider at Discharge: Lucas Raya MD Primary Care Provider: Tashi Acosta MD Diagnoses at Discharge Discharge Diagnosis (1) Small bowel obstruction: Status: Acute (2) T12 vertebral fracture: Status: Acute (3) Fall: Status: Inactive Reason for Visit Reason for Visit: RIGHT HIP PAIN Hospital Course Hospital Course 60 female who presented to hospital with chief complaint of abdominal discomfort, constipation, patient was conservatively managed in the hospital for possible bowel obstruction, surgeons did not agree with the CT scan findings however patient is able to tolerate her diet, she also had 1 bowel movement on 01/06, patient is stating that it was a moderate amount and she does feel better she is eager to return to long term. I have added lactulose at the time of discharge. For her T12 compression fracture I have given her outpatient referral with Dr. Church. We will give her low-dose opioids with bowel regimen. Of note, patient never got NG tube, she is stating that she has some traumatic experience because of previous intubation she would not allow us to put any tube down her nose or throat. Physical Exam Narrative: Morbidly obese Abdomen soft Bowel sound present Awake and alert Currently on 2 L Pleasantly S1, S2 Abdomen is soft nontender bowel sound present no signs of peritonitis No active emesis Discharge Data Studies Completed and Pending Completed Studies During Hospitalization Category Date Time Status CT abdomen pelvis wo con [id number] Stat Cat Scan 01/04/22 23:29 Completed XR KUB portable [id number] Routine Exams 01/06/22 04:00 Completed Radiology Impressions Abdomen/Pelvis CT 01/04/22 23:29 IMPRESSION: 1. Multiple dilated proximal small bowel loops with air-fluid levels. The mid/distal small bowel has an empty, decompressed appearance. Findings are consistent with small bowel obstruction. No ischemic change or perforation noted. 2. Diverticulosis of the colon. No evidence of acute diverticulitis. 3. Mild ascites in the abdomen and pelvis. No fluid collection. 4. Mild anterior subcutaneous edema. No hematoma noted. 5. Mild compression of the inferior endplate of T12, of undetermined age. Acute fracture not excluded. KUB X-Ray 01/06/22 04:00 IMPRESSION: Findings suggestive of small-bowel obstruction. Laboratory Results WBC 5.3 10^3/uL (4.0-10.0) 01/06/22 03:09 RBC 4.78 10^6/uL (4.1-5.3) 01/06/22 03:09 Hgb 12.6 g/dL (11.5-15.3) 01/06/22 03:09 Hct 43.0 % (37.0-47.0) 01/06/22 03:09 MCV 90.0 fl (81-99) 01/06/22 03:09 MCH 26.4 pg (28.0-34.0) L 01/06/22 03:09 MCHC 29.3 g/dL (30.0-36.0) L 01/06/22 03:09 RDW 15.7 % (12.1-15.1) H 01/06/22 03:09 Plt Count 153 10^3/cmm (130-400) 01/06/22 03:09 MPV 11.5 fL (7.4-10.4) H 01/06/22 03:09 Neut % (Auto) 70.9 % 01/06/22 03:09 Lymph % (Auto) 13.7 % 01/06/22 03:09 [place] % (Auto) 10.7 % 01/06/22 03:09 Eos % (Auto) 4.1 % 01/06/22 03:09 Baso % (Auto) 0.4 % 01/06/22 03:09 Neut # (Auto) 3.77 10^3/uL (1.8-7.7) 01/06/22 03:09 Lymph # (Auto) 0.7 10^3/uL (0.8-4.8) L 01/06/22 03:09 [place] # (Auto) 0.6 10^3/uL (0.2-0.9) 01/06/22 03:09 Eos # (Auto) 0.2 10^3/uL (0.0-0.8) 01/06/22 03:09 Baso # (Auto) 0.0 10^3/uL (0.0-0.1) 01/06/22 03:09 Nucleated RBC % (auto) 0 % 01/06/22 03:09 Nucleated RBCs # 0.0 /100WBC 01/06/22 03:09 Sodium 141 mmol/L (136-145) 01/06/22 03:09 Potassium 4.2 mmol/L (3.5-5.1) 01/06/22 03:09 Chloride 103 mmol/L (98-107) 01/06/22 03:09 Carbon Dioxide 28 mmol/L (22-29) 01/06/22 03:09 Anion Gap 14.2 (5-19) 01/06/22 03:09 BUN 17 mg/dL (8-23) 01/06/22 03:09 Creatinine 0.9 mg/dL (0.5-0.9) 01/06/22 03:09 GFR Calculation 62.3 mL/min (90-130) L 01/06/22 03:09 Glucose 154 mg/dL (65-115) H 01/06/22 03:09 POC Glucose 112 mg/dL (70-110) H 01/06/22 06:42 Calculated Osmolality 297 mOsm/kg (285-295) H 01/06/22 03:09 Calcium 8.5 mg/dL (8.5-10.5) 01/06/22 03:09 Magnesium 1.9 mg/dL (1.7-2.3) 01/06/22 03:09 Total Bilirubin 0.4 mg/dL (0.15-1.2) 01/06/22 03:09 AST 17 U/L (0-32) 01/06/22 03:09 ALT 10 U/L (0-33) 01/06/22 03:09 Alkaline Phosphatase 69 U/L (35-105) 01/06/22 03:09 Total Protein 6.4 g/dL (6.6-8.7) L 01/06/22 03:09 Albumin 3.5 g/dL (3.5-5.2) 01/06/22 03:09 Globulin 2.9 g/dL (1.3-4.6) 01/06/22 03:09 Lipase 72 U/L (13-60) H 01/05/22 00:53 Urine Color Yellow (Yellow) 01/05/22 23:30 Urine Appearance Sl hazy (CLEAR) A 01/05/22 23:30 Urine pH 5 (5-7) 01/05/22 23:30 Ur Specific [place] 1.025 (1.005-1.030) 01/05/22 23:30 Urine Protein 1+ (Negative) H 01/05/22 23:30 Urine Glucose (UA) Norm (Normal) 01/05/22 23:30 Urine Ketones 2+ (Negative) H 01/05/22 23:30 Urine Blood Neg (Negative) 01/05/22 23:30 Urine Nitrate Negative (Negative) 01/05/22 23:30 Urine Bilirubin 1+ (Negative) H 01/05/22 23:30 Urine Urobilinogen 1 mg/dL (Negative) H 01/05/22 23:30 Ur Leukocyte Esterase 1+ (Negative) H 01/05/22 23:30 Urine RBC 0-4 /hpf (0-2) H 01/05/22 23:30 Urine WBC 0-4 /hpf (0-5) H 01/05/22 23:30 Ur Squamous Epith Cells 10-15 /hpf (0-5) H 01/05/22 23:30 Ur Renal Epithelial Cell 0-2 /hpf 01/05/22 23:30 Amorphous Sediment 1+ /hpf 01/05/22 23:30 Urine Bacteria 1+ /hpf (NONE) H 01/05/22 23:30 Hyaline Casts 0-4 /lpf H 01/05/22 23:30 Fine Granular Casts 0-4 /lpf H 01/05/22 23:30 Coarse Granular Casts 0-1 /lpf 01/05/22 23:30 Vitals Last Vital Signs Temp 98.4 F 01/06/22 07:55 Pulse 90 01/06/22 07:55 Resp 19 H 01/06/22 07:55 BP 132/84 01/06/22 07:55 Pulse Ox 96 01/06/22 07:55 O2 Del Method 01/06/22 07:55 O2 Flow Rate 2 01/06/22 07:55 Discharge Plan Discharge Patient Disposition: Home Condition: Stable Prescriptions: New lactulose 10 gram/15 mL solution 10 g PO DAILY PRN (Reason: constipation) Qty: 473 0RF Continued rosuvastatin 40 mg tablet 40 mg PO DAILY@20 (DME) Diabetic Shoes See Rx Instructions .Route .MEDSUPPLY Qty: 1 0RF Rx Instructions: As directed ammonium lactate 12 % cream 1 applic topical DAILY Qty: 385 0RF albuterol sulfate 90 mcg/actuation HFA aerosol inhaler 1 puff INHALATION Q6H PRN (Reason: Shortness Of Breath) Qty: 8.5 3RF Cough Drops See Rx Instructions .ROUTE .COMPLEX Rx Instructions: may keep at bedside ondansetron 4 mg tablet,disintegrating 4 mg PO Q6H PRN (Reason: nausea and vomiting) Qty: 14 0RF naproxen [Naprosyn] 500 mg tablet 500 mg PO BID PRN (Reason: pain) Qty: 20 0RF Myrbetriq 25 mg tablet extended release 24 hr 25 mg PO DAILY@0700 promethazine-DM 6.25-15 mg/5 mL Syrup 5 ml PO Q6H PRN (Reason: Cough) Ozempic 0.25 mg or 0.5 mg(2 mg/1.5 mL) Pen Injector 0.5 mg SUBCUT Q7D Rx Instructions: on mondays hydroxyzine HCl 25 mg Tablet 25 mg PO Q8H PRN (Reason: Anxiety) fluoride (sodium) [SF 5000 Plus] 1.1 % Cream See Rx Instructions .ROUTE .COMPLEX Rx Instructions: brush on teeth bid with use of regular tooth paste do not eat or drink 30 mins after (use at 07:00 & 20:00) aspirin 81 mg tablet,delayed release (DR/EC) 81 mg PO DAILY@07 Acidophilus 175 mg PO DAILY@19 loperamide 2 mg Tablet 2 mg PO QID PRN (Reason: Diarrhea) pantoprazole 40 mg tablet,delayed release (DR/EC) 40 mg PO DAILY@07 insulin aspart U-100 [Novolog U-100 Insulin aspart] 100 unit/mL solution See Rx Instructions .ROUTE .COMPLEX Rx Instructions: PER SLIDING SCALE AC MEALS AND HS @ 05:30,11:00,16:00,20:00 150-200=0 units 201-250=2 units 251-300=4 units 301-350=6 units 351-400=8 units Debrox 6.5 % Drops See Rx Instructions .ROUTE .COMPLEX Rx Instructions: 5-10 GTTS EACH EAR MONTHLY. Januvia 100 mg Tablet 100 mg PO DAILY@0700 Flonase Sensimist 27.5 mcg/actuation [place],Suspension 1 spray INTRANASAL DAILY@0700 Daliresp 500 mcg tablet 500 mcg PO DAILY@0700 Trelegy Ellipta 100-62.5-25 mcg blister with device 1 inh inhalation DAILY@07 acetaminophen [Tylenol Extra Strength] 500 mg Tablet 1,000 mg PO Q4H MDD 8 tabs PRN (Reason: Pain) magnesium hydroxide [Milk of Magnesia] 400 mg/5 mL Suspension See Rx Instructions .ROUTE .COMPLEX Rx Instructions: 30ML PO ONCE DAILY PRN IF NO BM FOR 3 DAYS bisacodyl [Dulcolax (bisacodyl)] 10 mg Suppository 10 mg PA DAILY PRN (Reason: Constipation) Rx Instructions: IF NO BM FROM MOM, IF CAN'T TAKE PO & NO RSLTS OF M.O.M. Fleet Enema 19-7 gram/118 mL Enema 118 ml PA DAILY PRN (Reason: Constipation) Rx Instructions: IF NO RESUTLS FROM M.O.M. gabapentin 300 mg capsule 300 mg PO BID@0700,2000 bisacodyl [Dulcolax (bisacodyl)] 5 mg Tablet,Delayed Release (Dr/Ec) 10 mg PO DAILY PRN (Reason: Constipation) melatonin 5 mg Tablet 5 mg PO BEDTIME@2000 pioglitazone [Actos] 15 mg Tablet 7.5 mg PO DAILY@0700 venlafaxine 75 mg Capsule,Extended Release 24hr 75 mg PO DAILY@0700 Saline Nasal 0.65 % Aerosol,[place] See Rx Instructions .ROUTE .COMPLEX Rx Instructions: SQUEEZE INTO DRY NOSTRILS BID THEN FOLLOW WITH BACTROBAN. USE AT 0700 AND 2000 levetiracetam 500 mg tablet See Rx Instructions .ROUTE .COMPLEX Rx Instructions: 500mg po qam @07:00 and 1000mg po daily@19:00 lidocaine 5 % adhesive patch,medicated 1 patch topical DAILY PRN (Reason: pain) 30 Days Qty: 30 0RF Rx Instructions: leave on most painful area for up to 12 hrs Tresiba FlexTouch U-200 200 unit/mL (3 mL) insulin pen 10 unit SUBCUT BEDTIME zinc acetate 50 mg (zinc) Capsule 50 mg PO DAILY@07 bumetanide 0.5 mg tablet 0.5 mg PO DAILY@07 Vitamin D3 50 mcg (2,000 unit) Capsule 50 mcg PO DAILY@07 ipratropium-albuterol 0.5 mg-3 mg(2.5 mg base)/3 mL Solution For Nebulization 3 ml INHALATION Q4H PRN (Reason: Shortness Of Breath) Refresh Tears 0.5 % Drops 1 - 2 drp ophthalmic (eye) .EVERY 2 HOURS PRN (Reason: Dry Eye(S)) Clotrimazole Foot 1 % Cream See Rx Instructions .ROUTE .COMPLEX Rx Instructions: apply topically to scales in right foot Discharge Orders: Discharge Order (Routine); Ordered 01/06/22 Ordered By: Lucas Raya Referrals: Mor Church DO [Physician] - 4-7 days (t12 fractuer) Tashi Acosta MD [Primary Care Provider] - 2 weeks Discharge Diet: Diabetic Patient Instructions: Opioid Safety Discharge Attestations Time Spent in Discharge Care*: less than 30 min Quality Metrics Clinical Quality Measures [ No reported AMI, CVA or VTE this stay] Coding Level of Care Code Acute [facility] note Diagnoses Small bowel obstruction K56.609 T12 vertebral fracture S22.089A Fall W19.XXXA
--- NOTE | 2022-01-06 10:24 | PC.CHAP ---
Pastoral Care Encounter/Spiritual Assessment Type of Contact [] Declined chief internal auditor visit [] Patient/Family/Request visit [] Outpatient visit [] Follow-up visit [] Physician referral [] Code/Alert [x] Routine visit [] Staff referral [] Actively dying [] Patient sleeping [] Family support [] [] Out of room [] Palliative care [] [] Receiving care in room [] Pre-surgical visit [] Trauma [] Long length of stay [] ICU visit [] Other: Relational/Emotional Strength [x] Patient feels connected with others/family/visitors/staff [] Distress [] Loneliness/isolation [] Abandonment Spirituality of Patient [x] Person of [place] [] Attends Pentecostal of their [place] [x] Believes in Prayer [] Reads Bible or Latter Day materials [] There are Spiritual issues to be addressed Contractor Buyer Interventions [x] Prayer [x] Active listening [] Non-anxious presence [] Spiritual/emotional support [] Crisis/trauma care [] Spiritual counseling [] Bereavement support [] Provided bereavement packet [] Provided Bible/devotional materials [] Provided toy/stuffed animal, coloring book to patient or family member [] Provided Communion [] Anointing/[place] [] Salvation [x] Completed spiritual assessment [] Other: Impact on Illness or Injury [] Angry [] Fearful [] Anxious [] Often cries [] Exhaustion [] Unable to work [] Unable to attend gnosticism [] Unable to walk/stand [] Unable to read [] Unable to drive [] Unable to eat/drink [] Unable to sleep [] Unable to be with family [] Patient intubated [] Other: Summary Time spent with patient 10 min
[2022-01-06 11:31] LABS: Glucose Point of Care 118 mg/dL (70-110)
== END 2022-01-06 13:03 | disposition home or self-care (01) | DRG 389 ==
LOC: ER 01-05 00:41 → MEDSURG 01-05 01:05
PROVIDERS: Admitting Provider Student in an Organized Health Care Education/Training Program; Emergency Provider Registered Nurse; PCP Family Medicine; Visit Provider Internal Medicine
DX: K56.609 Unspecified intestinal obstruction, unspecified as to partial versus complete obstruction (principal); E66.2 Morbid (severe) obesity with alveolar hypoventilation; S22.080A Wedge compression fracture of T11-T12 vertebra, initial encounter for closed fracture; J96.12 Chronic respiratory failure with hypercapnia; J96.11 Chronic respiratory failure with hypoxia; I42.8 Other cardiomyopathies; I50.32 Chronic diastolic (congestive) heart failure; Z88.0 Allergy status to penicillin; Z88.2 Allergy status to sulfonamides; Z88.8 Allergy status to other drugs, medicaments and biological substances; I11.0 Hypertensive heart disease with heart failure; J44.9 Chronic obstructive pulmonary disease, unspecified; F32.A Depression, unspecified; E78.5 Hyperlipidemia, unspecified; I08.1 Rheumatic disorders of both mitral and tricuspid valves; I27.20 Pulmonary hypertension, unspecified; E11.9 Type 2 diabetes mellitus without complications; Z95.2 Presence of prosthetic heart valve; Z79.4 Long term (current) use of insulin; Z79.82 Long term (current) use of aspirin; Z79.51 Long term (current) use of inhaled steroids; K59.00 Constipation, unspecified; W19.XXXA Unspecified fall, initial encounter; G89.29 Other chronic pain; F17.210 Nicotine dependence, cigarettes, uncomplicated
CPT/HCPCS: 12345; 36416; 74018; 74176; 80053; 81001; 82962; 83690; 83735; 85025; 94640; 96372; 99285; J1650; J1885; J1953; J7030

== ENCOUNTER → 2022-02-01 12:46 | Outpatient (BNVA) | payer MEDICARE, MEDICAID, SELFPAY | PROVIDERS: PCP Family Medicine; Visit Provider Podiatrist Foot & Ankle Surgery | DX: G62.9 Polyneuropathy, unspecified (principal); I73.9 Peripheral vascular disease, unspecified; B35.1 Tinea unguium; L85.3 Xerosis cutis | CPT/HCPCS: 11721; 93922 ==

== ENCOUNTER 2022-02-07 10:45 | Outpatient (CLI) | payer MEDICARE, MEDICAID, SELFPAY ==
--- NOTE | 2022-02-07 10:48 | CT_ITS ---
WS: [id number] LDCT LUNG CANCER SCREENING TECHNIQUE: Noncontrast CT of the chest with coronal and sagittal reformatted images. CLINICAL INFORMATION: Lung cancer screening COMPARISON: CTA chest June 08, 2020 PET/CT January 22, 2021 DLP: 70.59 mGy.cm DIvol: Mean CTDIvol: 1.60 (mGy) All CT scans at [facility] use at least one of these dose optimization techniques: automat ed exposure control; mA and/or kV adjustment per patient size (includes targeted exams where dose is matched to clinical indication); or iterative reconstruction. FINDINGS:Partially calcified subpleural nodule RIGHT upper lobe measuring 4 mm. 3 mm noncalcified sub pleural nodule RIGHT lower lobe. Cardiomegaly. LEFT thyroid nodule appears unchanged from the prior CT partially visualized today. Thi s measures approximately 2.5 cm. Cardiomegaly. Normal caliber thoracic aorta. No mediastinal or hilar lymphadenopathy. No axillary lymphadenopathy. Normal GE junction. Adrenal glands are normal. Fatty a trophy of the pancreas. Lungs are well aerated. No acute pulmonary infiltrates. No suspicious pulmonary parenchymal opacities . Subsegmental atelectasis in the LEFT greater than RIGHT lung bases. A few calcified granulomas. CT/CT lung screening [id number] IMPRESSION: LUNG-RADS: 2-Benign Appearance or Behavior FOLLOW UP: 12 Month: Continue annual screening with LDCT
== END 2022-02-07 10:46 | disposition home or self-care (01) ==
LOC: RAD 10:45
PROVIDERS: PCP Family Medicine; Visit Provider Internal Medicine Critical Care Medicine
DX: Z12.2 Encounter for screening for malignant neoplasm of respiratory organs (principal); F17.219 Nicotine dependence, cigarettes, with unspecified nicotine-induced disorders; Z87.891 Personal history of nicotine dependence
CPT/HCPCS: 71271

== ENCOUNTER 2022-02-25 16:31 | Observation (INO) | payer MEDICARE, MEDICAID, SELFPAY ==
[2022-02-25] VITALS (18 sets, daily range): BP systolic 119–157; BP diastolic 69–89; PULSE 87–99; RESP 20–28; TEMP 37.1; O2SAT 93–100; BMI 48.2
--- NOTE | 2022-02-25 16:36 | W.ED.SOB ---
HPI - SOB/Dyspnea General: Chief Complaint: Shortness of Breath/Dyspnea Stated Complaint: sob x 2 days Time Seen by Provider: 02/25/22 16:35 Source: patient and EMS Mode of arrival: EMS Limitations: no limitations History of Present Illness: HPI Narrative: See nursing assessment. Patient with complaints of shortness of breath for the past 2 days. Patient called EMS today because she is having increased shortness of breath even with walking. She states she had oxygen saturation down to the low 90s with walking at home. She does wear oxygen 2 L/min by nasal cannula all the time. Patient states that she has had nonproductive cough. Denies fever. She states she started having mild diarrhea this morning. She denies any recent antibiotic use. Paramedics state that patient was given Solu-Medrol 125 mg IV and a DuoNeb due to wheezing. Past medical history includes and spent diabetes mellitus, CHF, COPD, pneumonia blood pressure in route ranged from 140s 150s systolic and 80s to 90s diastolic., Blood sugar prior to arrival was 175. Axillary temperature was 97.4 by EMS. Patient states she still smokes. Associated symptoms: Deny abdominal pain, chest pain, fever(s), nausea, palpitations or vomiting Review of Systems Const: Denies: fever(s) or chills Eyes: Denies: change in vision ENMT: Denies: throat pain Card: Denies: chest pain or palpitations Resp: Reports: dyspnea, non-productive cough and wheezing; Denies: pain on inspiration GI: Reports: diarrhea; Denies: abdominal pain, nausea, vomiting or hematochezia : Denies: flank pain Musc: Denies: neck pain or back pain Skin/Breast: Denies: rash or pruritus Neuro: Denies: headache(s) or numbness in extremities Psych: Denies: anxiety Maximo/Lymph: Denies: enlarged lymph nodes PFSH ED PFSH: Medical History Acute on chronic diastolic (congestive) heart failure Benign essential hypertension with target blood pressure below 140/90 Chronic respiratory failure with hypoxia and hypercapnia COPD (chronic obstructive pulmonary disease) Depression Diastolic congestive heart failure Hyperlipidemia Hypertension Moderate to severe mitral regurgitation Nonischemic cardiomyopathy Obesity Obesity hypoventilation syndrome Obstructive sleep apnea Pulmonary hypertension Restrictive lung disease Seizure disorder Sleep apnea Small bowel obstruction T12 vertebral fracture Tricuspid regurgitation Type 2 diabetes mellitus Surgical History H/O mitral valve replacement History of Ulnar nerve compression Family History Brother CAD (coronary artery disease) Sister CAD (coronary artery disease) Grandmother Diabetes Mother Stroke Denies family history of Clotting disorder Dementia Chronic kidney disease (CKD) Suicide Anesthesia complication Bleeding disorder Lung disease Cancer Social History Smoking and tobacco status: current every day smoker cigarettes Packs smoked per day: 0.25 Years cigarettes smoked: 33 [ Other cigarette details: Hx of 1PPD x 30 Years, started 1991] Second hand smoke exposure: Yes Smoking risk assessment/counseling performed?: Yes Alcohol intake: never Counseling given: No Counseling given: No Caregiver/support person: Yes Lives independently: No Housing: Assisted Living Facility Marital status: / Current occupational status: retired and disabled History of recent travel: No Current gender identity: Female Physical Exam Const: COMMON NORMALS: patient oriented x3, no limitations and well nourished GENERAL APPEARANCE: cooperative HENMT: COMMON NORMALS: normocephalic and atraumatic HEAD & SCALP: normocephalic and atraumatic FACE & SINUS: normal facial exam Eye: COMMON NORMALS: EOMs intact bilaterally Neck/C-Spine: COMMON NORMALS: full ROM, no lymphadenopathy, supple and no meningeal signs GENERAL: Yes normal visual inspection Lymph: LYMPHATIC: no lymphadenopathy noted Chest: COMMONS NORMALS: normal inspection of the chest and normal palpation of entire chest wall CHEST: No Ecchymosis present and No rash Resp: OTHER: Patient with mild rhonchi in the bases bilaterally. No wheezing now. Mild tachypnea Cardio: COMMON NORMALS: regular rate, regular rhythm and Peripheral pulses 2+ throughout JUGULAR VENOUS DISTENTION: no JVD RATE: regular rate RHYTHM: regular rhythm PERIPHERAL PULSES: Peripheral pulses 2+ throughout GI: COMMON NORMALS: Normal to inspection, nondistended, normoactive bowel sounds present and non-tender OTHER: Morbid obesity. : COMMON NORMALS: Yes no CVA tenderness BLADDER/KIDNEY EXAM: Yes no CVA tenderness Back/Pelvis: COMMON NORMALS: no CVA tenderness Extremity: COMMON NORMALS: normal to inspection, full ROM and capillary refill normal Neuro: COMMON NORMALS: patient oriented x3, CN's II-XII intact bilaterally, no focal motor deficits and no sensory deficits noted MENINGEAL SIGNS: Yes no meningeal signs Psych: COMMON NORMALS: mental status grossly normal and Normal thought process present THOUGHT PROCESS: Normal thought process present Skin: COMMON NORMALS: no rashes or lesions noted and no wounds GENERAL SKIN EXAM: no rashes or lesions noted Course Vital Signs: Vital signs: Vital Signs Temperature 98.7 F 02/25/22 16:43 Pulse Rate 97 02/25/22 19:30 Respiratory Rate 28 H 02/25/22 19:30 Blood Pressure 133/75 02/25/22 19:30 Pulse Oximetry 94 02/25/22 19:30 Oxygen Delivery Me thod 02/25/22 16:43 Oxygen Flow Rate 2 02/25/22 16:43 MDM - SOB/Dyspnea Medical Decision Making CHF versus COPD versus viral infection versus pneumonia Due to elevated lactic acid will cover with Rocephin and Zithromax. Patient states she has a predisposition for marisol pneumonia. Due to her history of congestive heart failure and elevated BNP, will give dose of Lasix. 1940: Discussed with hospitalist Dr. Alas. She will observe the patient in the hospital. Lab Data 02/25/22 16:18 02/25/22 16:18 Labs/Radiology: Radiology Impressions Chest X-Ray 02/25/22 16:43 IMPRESSION: 1. Cardiomegaly. 2. Bibasilar atelectasis versus infiltrate. Laboratory Results WBC 9.0 10^3/uL (4.0-10.0) 02/25/22 16:18 RBC 5.57 10^6/uL (4.1-5.3) H 02/25/22 16:18 Hgb 14.5 g/dL (11.5-15.3) 02/25/22 16:18 Hct 49.5 % (37.0-47.0) H 02/25/22 16:18 MCV 88.9 fl (81-99) 02/25/22 16:18 MCH 26.0 pg (28.0-34.0) L 02/25/22 16:18 MCHC 29.3 g/dL (30.0-36.0) L 02/25/22 16:18 RDW 16.5 % (12.1-15.1) H 02/25/22 16:18 Plt Count 189 10^3/cmm (130-400) 02/25/22 16:18 MPV 12.6 fL (7.4-10.4) H 02/25/22 16:18 Neut % (Auto) 61.2 % 02/25/22 16:18 Lymph % (Auto) 21.8 % 02/25/22 16:18 Person % (Auto) 6.8 % 02/25/22 16:18 Eos % (Auto) 9.2 % 02/25/22 16:18 Baso % (Auto) 0.6 % 02/25/22 16:18 Neut # (Auto) 5.49 10^3/uL (1.8-7.7) 02/25/22 16:18 Lymph # (Auto) 2.0 10^3/uL (0.8-4.8) 02/25/22 16:18 Person # (Auto) 0.6 10^3/uL (0.2-0.9) 02/25/22 16:18 Eos # (Auto) 0.8 10^3/uL (0.0-0.8) 02/25/22 16:18 Baso # (Auto) 0.1 10^3/uL (0.0-0.1) 02/25/22 16:18 Nucleated RBC % (auto) 0 % 02/25/22 16:18 Nucleated RBCs # 0.0 /100WBC 02/25/22 16:18 Sodium 137 mmol/L (136-145) 02/25/22 16:18 Potassium 4.3 mmol/L (3.5-5.1) 02/25/22 16:18 Chloride 94 mmol/L (98-107) L 02/25/22 16:18 Carbon Dioxide 32 mmol/L (22-29) H 02/25/22 16:18 Anion Gap 15.3 (5-19) 02/25/22 16:18 BUN 21 mg/dL (8-23) 02/25/22 16:18 Creatinine 0.8 mg/dL (0.5-0.9) 02/25/22 16:18 GFR Calculation 71.3 mL/min (90-130) L 02/25/22 16:18 Glucose 128 mg/dL (65-115) H 02/25/22 16:18 Calculated Osmolality 289 mOsm/kg (285-295) 02/25/22 16:18 Lactic Acid 2.6 mmol/L (0.5-2.2) H 02/25/22 16:58 Lactic Acid (Sepsis) 2.4 mmol/L (0.5-2.2) H 02/25/22 19:47 Calcium 9.5 mg/dL (8.5-10.5) 02/25/22 16:18 Troponin T Baseline 15 ng/L (0-10) H 02/25/22 16:18 Troponin T 120 Minute 14.86 ng/L (0-10) H 02/25/22 18:51 Delta Troponin T -0.14 ABS# (0-10) L 02/25/22 18:51 NT-Pro-B Natriuret Pep 948 pg/mL (0-125) H 02/25/22 16:18 Influenza Type A Ag negative (Negative) 02/25/22 17:42 Influenza Type B Ag negative (Negative) 02/25/22 17:42 SARS-CoV-2 Ag (Rapid) negative (Negative) 02/25/22 17:42 Imaging Data CXR: My impression: Moderate cardiomegaly. Possible trace pulmonary edema. Unchanged from chest x-ray on 12/29/2021. EKG Data EKG 1: I personally reviewed and interpreted this EKG as follows: EKG Interpretation Date: 02/25/22 EKG interpretation time: 16:54 Prior EKG tracings: available for review (No change from EKG on 07/24/2021) Interpretation: Impression normal sinus rhythm with heart rate of 89. Mild right axis. Left atrial enlargement, mild LVH, mild early repolarization throughout. Normal QT interval, normal NE interval, normal QRS except for mild LVH. EKG 2: I personally reviewed and interpreted this EKG as follows: EKG Interpretation Date: 02/25/22 EKG interpretation time: 18:49 Prior EKG tracings: available for review (Unchanged from EKG earlier today.) Interpretation: Normal sinus rhythm with LVH. Heart rate 98. Left atrial enlargement. Early repolarization. Normal T waves. 1 PVC. Mild right axis. Unchanged from previous EKG except for PVC. Discharge Plan Discharge Patient Disposition: Placed in Observation Admit Provider: Savita Alas Clinical Impression: Acute exacerbation of chronic obstructive airways disease Community acquired pneumonia Qualifiers: Laterality: left Lung location: lower lobe of lung Qualified Code(s): J18.9 - Pneumonia, unspecified organism Coding Level of Care Code ED Accessibility Lift Technician for Chg Fwd History Comprehensive Exam Comprehensive Medical Decision Making Moderate Complexity
--- NOTE | 2022-02-25 16:43 | XRR_ITS ---
PROCEDURE INFORMATION: Exam: XR Chest Exam date and time: 02/25/2022 4:58 PM Age: 66 years old Clinical indication: Shortness of breath TECHNIQUE: Imaging protocol: Radiologic exam of the chest. Views: 1 view. COMPARISON: CR (CHEST, ) 12/29/2021 5:44 PM FINDINGS: Lungs: Bibasilar atelectasis versus infiltrate. Pleural spaces: Unremarkable. No pleural effusion. No pneumothorax. Heart/Mediastinum: Cardiomegaly. Bones/joints: Unremarkable. XR/XR chest 1V portable [id number] IMPRESSION: 1. Cardiomegaly. 2. Bibasilar atelectasis versus infiltrate.
--- NOTE | 2022-02-25 16:52 | ECG_ITS ---
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 Measurements Intervals [place] Rate: 89 P: 63 AR: 179 QRS: 96 QRSD: 90 T: 70 QT: 385 QTc: 470 Interpretive Statements SINUS RHYTHM WITH OCCASIONAL VENTRICULAR PREMATURE COMPLEXES BORDERLINE RIGHT AXIS DEVIATION [QRS AXIS > 90] Compared to ECG 07/24/2021 16:14:20 Ventricular premature complex(es) now present Electronically Signed On 02-26-2022 12:51:41 TECHNICAL DOCUMENT WRITER by Beau Rm M.D. [id number]
[2022-02-25 17:11] LABS: Basophils # 0.1 10^3/uL (0.0-0.1); Basophils % 0.6 %; Eosinophils # 0.8 10^3/uL (0.0-0.8); Eosinophils % 9.2 %; Hematocrit 49.5 % (37.0-47.0); Hemoglobin 14.5 g/dL (11.5-15.3); Lymphocytes % 21.8 %; Mean Corpuscular HGB Conc 29.3 g/dL (30.0-36.0); Mean Corpuscular Volume 88.9 fl (81-99); Mean Platelet Volume 12.6 fL (7.4-10.4); Monocytes # 0.6 10^3/uL (0.2-0.9); Monocytes % 6.8 %; Neutrophils # 5.49 10^3/uL (1.8-7.7); Neutrophils % 61.2 %; Nucleated Red Blood Cells % 0 %; Platelet Count 189 10^3/cmm (130-400); Red Blood Count 5.57 10^6/uL (4.1-5.3); Red Cell Distribution Width 16.5 % (12.1-15.1)
[2022-02-25 17:32] LABS: Lactic Sepsis W/Reflex 2.6 mmol/L (0.5-2.2)
[2022-02-25 17:33] LABS: Troponin(5th) Baseline 15 ng/L (0-10)
[2022-02-25 17:38] LABS: Blood Urea Nitrogen 21 mg/dL (8-23); Calcium 9.5 mg/dL (8.5-10.5); Carbon Dioxide 32 mmol/L (22-29); Chloride 94 mmol/L (98-107); Glomerular Filtration Rate 71.3 mL/min (90-130); Glucose 128 mg/dL (65-115); NT Pro B Type Natriuretic Pept 948 pg/mL (0-125); Osmolality Calculated 289 mOsm/kg (285-295); Sodium 137 mmol/L (136-145)
[2022-02-25 17:41] LABS: Anion Gap 15.3 (5-19); Potassium 4.3 mmol/L (3.5-5.1)
[2022-02-25 18:03] LABS: Influenza A by IFA negative (Negative); Influenza B by IFA negative (Negative); SARS Covid-2 Antigen negative (Negative)
[2022-02-25] MEDS: cefTRIAXone 1,000 MG in sodium chloride 0.9% (plus) 50 ML 100 MG IV (18:09)
[2022-02-25] MEDS: FUROsemide 10 mg/mL SDV 2mL 20 MG IVP (18:13)
--- NOTE | 2022-02-25 18:46 | ECG_ITS ---
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 Measurements Intervals [place] Rate: 98 P: 67 CA: 190 QRS: 96 QRSD: 91 T: 71 QT: 364 QTc: 465 Interpretive Statements SINUS RHYTHM WITH FREQUENT VENTRICULAR PREMATURE COMPLEXES POSSIBLE LEFT ATRIAL ENLARGEMENT [-0.1mV P-WAVE IN V1/V2] BORDERLINE RIGHT AXIS DEVIATION [QRS AXIS > 90] PATTERN CONSISTENT WITH PULMONARY DISEASE Compared to ECG 02/25/2022 16:52:07 No significant changes Electronically Signed On 02-26-2022 12:54:09 ANATOMICAL EMBALMER by Beau Rm M.D. [id number]
[2022-02-25] MEDS: azithromycin 500 MG in sodium chloride 0.9% 250 ML 250 MG IV (18:52)
[2022-02-25 18:53] LABS: Reflex Lactate Order REFLEX LACTIC ORDERD
[2022-02-25 19:21] LABS: Troponin 5 2HR 14.86 ng/L (0-10)
[2022-02-25 19:24] LABS: Troponin 5 2HR Delta -0.14 ABS# (0-10)
--- NOTE | 2022-02-25 19:34 | PC.NURSE ---
report given to KIMI Miller to assume care
[2022-02-25 20:06] LABS: Lactic Acid level (Lactate) 2.4 mmol/L (0.5-2.2)
--- NOTE | 2022-02-25 20:52 | PM.HP ---
Providers/Chief Complaint Admitting Physician: Savita Alas MD Primary Care Provider: Tashi Acosta MD Chief Complaint: sob x 2 days History of Present Illness Yaquelin Loera is a 66 year old female with PMH?severe restrictive lung disease, chronic hypercapnic respiratory failure, obesity hypoventilation syndrome, small airways disease?, non ischemic cardiomyopathy, diabetes, presented to the hospital today for complaint of shortness of breath that has been progressively getting worse. She came via EMS. She uses 2L NC at home around the clock at home and o2 saturation dropped to low 90's at home. SHe has a nonproductive cough as well. Patient states she has been having diarrhea since last 2 days. It is loose. Denies chest pain, fever, nausea, vomitting, palpitations. She states she catches pneumonia very very easily. She is on Daliresp, albuterol at home. She says she was offered by the ER doc to go home however she would like to stay in the hospital since she is very concerned about her respiratory status. She does feel better after getting Lasix. ED Course: BP 140/80, temp 97.4, RR 28, pulse 97 and saturating 94% on 2L NC. BNP 948. Influenza swab negative, covid swab negative. CXR shows cardiomegaly. Bibasilar atelectasis vs. infiltrate. Patient given lasix 20 IV x1 and a dose of ceft and azithromycin. WBC normal. Lactic acid 2.6 on arrival. Trop 15, 14. 6 hour pending. Medications/Allergies Home Medications Medication Instructions Recorded Confirmed Last Taken Type acetaminophen 500 mg tablet 1,000 mg PO Q4H PRN Pain 05/16/19 02/01/22 11/08/20 History (Tylenol Extra Strength) bisacodyl 10 mg rectal suppository 10 mg TN DAILY PRN Constipation 05/16/19 02/01/22 Unknown History (Dulcolax (bisacodyl)) bisacodyl 5 mg tablet,delayed 10 mg PO DAILY PRN Constipation 05/16/19 02/01/22 Unknown History release (Dulcolax (bisacodyl)) carbamide peroxide 6.5 % ear drops See Rx Instructions .Route .COMPLEX 05/16/19 02/01/22 06/03/19 History (Debrox) fluticasone fur. 100 mcg-umeclid 1 inh inhalation DAILY@05/16/19 02/01/22 12/09/20 History 62.5 mcg-vilant 25 mcg inhalat.powder (Trelegy Ellipta) fluticasone furoate 27.5 1 spray intranasal DAILY@69905/16/19 02/01/22 12/09/20 History mcg/actuation nasal spray,suspension (Flonase Sensimist) gabapentin 300 mg capsule 300 mg PO BID@07,199905/16/19 02/01/22 12/09/20 History insulin aspart U-100 100 unit/mL See Rx Instructions .Route .COMPLEX 05/16/19 02/01/22 06/03/19 History subcutaneous solution (Novolog U-100 Insulin aspart) magnesium hydroxide 400 mg/5 mL See Rx Instructions .Route .COMPLEX 05/16/19 02/01/22 Unknown History oral suspension (Milk of Magnesia) melatonin 5 mg tablet 5 mg PO BEDTIME@199905/16/19 02/01/22 12/08/20 History roflumilast 500 mcg tablet 500 mcg PO DAILY@69905/16/19 02/01/22 12/09/20 History (Daliresp) sitagliptin 100 mg tablet (Januvia) 100 mg PO DAILY@69905/16/19 02/01/22 12/09/20 History sodium phosphates 19 gram-7 118 ml TN DAILY PRN Constipation 05/16/19 02/01/22 Unknown History gram/118 mL enema (Fleet Enema) pioglitazone 15 mg tablet (Actos) 7.5 mg PO DAILY@69905/31/19 02/01/22 12/09/20 History sodium chloride 0.65 % nasal spray See Rx Instructions .Route .COMPLEX 05/31/19 02/01/22 12/09/20 History aerosol (Saline Nasal) venlafaxine 75 mg capsule,extended 75 mg PO DAILY@69905/31/19 02/01/22 12/09/20 History release 24 hr levetiracetam 500 mg tablet See Rx Instructions .Route .COMPLEX 06/03/19 02/01/22 12/09/20 History 500 mg Cough Drops See Rx Instructions .Route .COMPLEX 01/30/20 02/01/22 Unknown History naproxen 500 mg tablet (Naprosyn) 500 mg PO BID PRN pain #20 tabs 01/30/20 02/01/22 Unknown Rx ondansetron 4 mg disintegrating 4 mg PO Q6H PRN nausea and 01/30/20 02/01/22 10/28/20 06:49 Rx tablet vomiting #14 tabs mirabegron 25 mg tablet,extended 25 mg PO DAILY@0700 10/28/20 02/01/22 12/09/20 History release 24 hr (Myrbetriq) promethazine-DM 6.25 mg-15 mg/5 mL 5 ml PO Q6H PRN Cough 10/28/20 02/01/22 Unknown History oral syrup Acidophilus 175 mg PO DAILY@12/09/20 02/01/22 12/08/20 History aspirin 81 mg tablet,delayed 81 mg PO DAILY@12/09/20 02/01/22 12/09/20 History release fluoride (sodium) 1.1 % dental See Rx Instructions .Route .COMPLEX 12/09/20 02/01/22 Unknown History cream (SF 5000 Plus) hydroxyzine HCl 25 mg tablet 25 mg PO Q8H PRN Anxiety 12/09/20 02/01/22 Unknown History loperamide 2 mg tablet 2 mg PO QID PRN Diarrhea 12/09/20 02/01/22 Unknown History pantoprazole 40 mg tablet,delayed 40 mg PO DAILY@12/09/20 02/01/22 12/09/20 History release semaglutide 0.25 mg or 0.5 mg (2 0.5 mg SUBCUT Q7D 12/09/20 02/01/22 12/06/20 History mg/1.5 mL) subcutaneous pen injector (Ozempic) albuterol sulfate 90 mcg/actuation 1 puff inhalation Q6H PRN 07/22/21 02/01/22 Unknown Rx aerosol inhaler Shortness Of Breath #8.5 grams rosuvastatin 40 mg tablet 40 mg PO DAILY@09/08/21 02/01/22 Unknown History Diabetic Shoes #1 ea 11/03/21 02/01/22 Unknown Rx ammonium lactate 12 % topical cream 1 applic topical DAILY #385 grams 11/03/21 02/01/22 Unknown Rx bumetanide 0.5 mg tablet 0.5 mg PO DAILY@01/05/22 02/01/22 Unknown History carboxymethylcellulose sodium 0.5 1 - 2 drp ophthalmic (eye) .EVERY 01/05/22 02/01/22 Unknown History % eye drops (Refresh Tears) 2 HOURS PRN Dry Eye(S) cholecalciferol (vitamin D3) 50 50 mcg PO DAILY@01/05/22 02/01/22 Unknown History mcg (2,000 unit) capsule (Vitamin D3) clotrimazole 1 % topical cream See Rx Instructions .Route .COMPLEX 01/05/22 02/01/22 Unknown History insulin degludec 200 unit/mL (3 10 unit SUBCUT BEDTIME 01/05/22 02/01/22 Unknown History mL) subcutaneous pen (Tresiba FlexTouch U-200 insulin) ipratropium 0.5 mg-albuterol 3 mg 3 ml inhalation Q4H PRN Shortness 01/05/22 02/01/22 Unknown History (2.5 mg base)/3 mL nebulization Of Breath soln zinc acetate 50 mg (zinc) capsule 50 mg PO DAILY@01/05/22 02/01/22 Unknown History lactulose 10 gram/15 mL oral 10 g (15 mL) PO DAILY PRN 01/06/22 02/01/22 Unknown Rx solution constipation #473 mL oxycodone 5 mg tablet 5 mg PO Q12H PRN pain #10 tabs 01/06/22 02/01/22 Unknown Rx sennosides 8.6 mg-docusate sodium 1 tab-cap PO DAILY #30 tabs 01/06/22 02/01/22 Unknown Rx 50 mg tablet (Senna-S) Allergies Allergy/AdvReac Type Severity Reaction Status Date / Time metformin Allergy ADR-Dry Verified 02/01/22 13:22 Mucus Membranes Penicillins Allergy ALGY-Anaphy Verified 02/01/22 13:22 laxis Sulfa (Sulfonamide Allergy ALGY-Anaphy Verified 02/01/22 13:22 Antibiotics) laxis PFSH Acute PFSH: Medical History Acute on chronic diastolic (congestive) heart failure Benign essential hypertension with target blood pressure below 140/90 Chronic respiratory failure with hypoxia and hypercapnia COPD (chronic obstructive pulmonary disease) Depression Diastolic congestive heart failure Hyperlipidemia Hypertension Moderate to severe mitral regurgitation Nonischemic cardiomyopathy Obesity Obesity hypoventilation syndrome Obstructive sleep apnea Pulmonary hypertension Restrictive lung disease Seizure disorder Sleep apnea Small bowel obstruction T12 vertebral fracture Tricuspid regurgitation Type 2 diabetes mellitus Surgical History H/O mitral valve replacement History of Ulnar nerve compression Family History Brother CAD (coronary artery disease) Sister CAD (coronary artery disease) Grandmother Diabetes Mother Stroke Denies family history of Clotting disorder Dementia Chronic kidney disease (CKD) Suicide Anesthesia complication Bleeding disorder Lung disease Cancer Social History Smoking and tobacco status: current every day smoker cigarettes Packs smoked per day: 0.25 Years cigarettes smoked: 33 [ Other cigarette details: Hx of 1PPD x 30 Years, started 1991] Second hand smoke exposure: Yes Smoking risk assessment/counseling performed?: Yes Alcohol intake: never Counseling given: No Counseling given: No Caregiver/support person: Yes Lives independently: No Housing: Assisted Living Facility Marital status: / Current occupational status: retired and disabled History of recent travel: No Current gender identity: Female Vitals/I&O/Wt Last Vital Signs Temp 98.7 F 02/25/22 16:43 Pulse 97 02/25/22 19:30 Resp 28 H 02/25/22 19:30 BP 133/75 02/25/22 19:30 Pulse Ox 94 02/25/22 19:30 O2 Del Method 02/25/22 16:43 O2 Flow Rate 2 02/25/22 16:43 02/25/22 02/25/22 02/25/22 06:59 14:59 22:59 Intake Total 50 / 50 Balance 50 / 50 Weight last 48 hrs Weight 97.522 kg Physical Exam Narrative: General: Alert oriented x3, patient seen sitting up in bed no acute respiratory distress. HEENT: Normocephalic, atraumatic, EOMI, breathing 3L NC Cardio: Regular rate rhythm, normal S1-S2, Respiratory: Bilateral wheezes present along with rhonchi at bases. No crackles. GI: Abdomen soft, notender, nondistended, bowel sounds +, obese rounded abdomen, large pannus. Extremities: no edema, no cyanosis Data 02/25/22 16:18 02/25/22 16:18 Micro: Microbiology 02/25/22 17:01 Blood Culture - Preliminary Blood SPECIMEN COLLECTED 02/25/22 16:58 Blood Culture - Preliminary Blood SPECIMEN COLLECTED A&P Assessment and plan (1) Acute and chronic respiratory failure ([id number]): (2) Small airways disease: (3) Nicotine addiction: (4) Benign essential hypertension with target blood pressure below 140/90: (5) Moderate to severe mitral regurgitation: (6) Acute diastolic heart failure: Plan #Acute on Chronic respiratory failure secondary to obesity hypoventilation syndrome, restrictive lung disease, small airway disease, 2 L oxygen patent #COPD exacerbation #Lactic acidosis #Mod-severe mitral valve regurgitation #Acute diastolic CHF exacerbation #Pulm vascular congestion, #Pneumonia not excluded #HTN #Nicotine addiction #Type 2 Diabetes Mellitus complicated by peripheral neuropathy, insulin dependent - Duoneb Q6H - Incentive spirometer, flutter valve - check mrsa nares, antigen strep, legionella, sputum cx gram stain - Lactic acidosis, improving. Repeat 2.4. - Continue on bumex 0.5 IV daily - Continue aspirin, daliresp, statin. venlafaxine - Cover with ceftriaxone and azithromycin for pneumonia - Check BCx - Repeat lactic acid and cxr - Check c.diff, stool culture - no IV fluids. Flu, COVID negative -Full code -Lovenox for DVT prophylaxis Attestations Medical Necessity Statement*: > observation stay for management of COPD exacerbation vs CHF exacerbation Coding Level of Care Code Acute Hospital Receiving Clerk for [facility] Fwd Diagnoses Acute and chronic respiratory failure ([id number]) J96.20 Small airways disease J98.4 Nicotine addiction F17.200 Benign essential hypertension with target blood pressure below 140/90 I10 Moderate to severe mitral regurgitation I34.0 Acute diastolic heart failure I50.31
--- NOTE | 2022-02-25 21:07 | XRR_ITS ---
PROCEDURE INFORMATION: Exam: XR Chest Exam date and time: 02/25/2022 9:52 PM Age: 66 years old Clinical indication: Cardiovascular condition or disease; Other: F/u edema; Additional info: F/u pulm edema TECHNIQUE: Imaging protocol: Radiologic exam of the chest. Views: 1 view. COMPARISON: CR (CHEST, ) 02/25/2022 4:58 PM FINDINGS: Lungs: No focal pneumonia. Pleural spaces: No pneumothorax. Heart/Mediastinum: The heart is quite large. Mild diffuse venous congestion with mild diffuse pulmonary edema. Bones/joints: Unremarkable. XR/XR chest 1V portable [id number] IMPRESSION: Mild evidence of CHF or positive fluid balance is minimally progressed from about 5 hours ago.
[2022-02-25 21:52] LABS: Estmated Average Glucose 151; Hemoglobin A1C 6.9 % (4.0-6.0)
[2022-02-25 22:02] LABS: Procalcitonin 0.09 ng/mL (0-0.5); Thyroid Stimulating Hormone 1.48 uIU/mL (0.27-4.20)
[2022-02-25 22:18] LABS: Bilirubin Urine Neg (Negative); Blood Urine Neg (Negative); Glucose Urine UA Norm (Normal); Ketones Urine Negative (Negative); Leukocyte Esterase Urine 1+ (Negative); Nitrate Urine Negative (Negative); Protein Urine Neg (Negative); Specific Gravity, Urine 1.005 (1.005-1.030); Urine Appearance Clear (CLEAR); Urine Color Yellow (Yellow); Urobilinogen Urine Neg (Negative); pH Urine 7 (5-7)
[2022-02-25 22:19] LABS: Add Urine Microscopic? YES
[2022-02-25 22:20] LABS: Add Urine Culture? Yes; Bacteria Urine 1+ /hpf
--- NOTE | 2022-02-25 22:44 | ECG_ITS ---
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 Measurements Intervals [place] Rate: 93 P: 64 ID: [id number] QRS: 92 QRSD: 93 T: 68 QT: 400 QTc: 499 Interpretive Statements SINUS RHYTHM WITH FREQUENT VENTRICULAR PREMATURE COMPLEXES POSSIBLE LEFT ATRIAL ENLARGEMENT [-0.1mV P-WAVE IN V1/V2] BORDERLINE RIGHT AXIS DEVIATION [QRS AXIS > 90] PATTERN CONSISTENT WITH PULMONARY DISEASE Compared to ECG 02/25/2022 18:46:51 No significant changes Electronically Signed On 02-26-2022 12:54:50 URINALYSIS TECHNICIAN by Beau Rm M.D. [email or web address]
[2022-02-25 23:05] LABS: Troponin 5 6HR 10.84 ng/L (0-10)
[2022-02-25 23:10] LABS: Troponin 5 6HR Delta -4.16 ng/L (0-12)
[2022-02-25] MEDS: enoxaparin 40 mg/0.4 mL Syringe SUBCUT (23:30)
[2022-02-26] VITALS (12 sets, daily range): BP systolic 105–148; BP diastolic 63–102; PULSE 70–97; RESP 12–23; TEMP 36.3–36.8; O2SAT 88–100
[2022-02-26] MEDS: ipratropium-albuterol 3 mL Neb INHALATION ×3 (02:02→13:57)
[2022-02-26 04:01] LABS: Basophils % 0.2 %; Eosinophils % 0.2 %; Hematocrit 46.7 % (37.0-47.0); Hemoglobin 13.8 g/dL (11.5-15.3); Lymphocytes # 0.6 10^3/uL (0.8-4.8); Mean Corpuscular HGB Conc 29.6 g/dL (30.0-36.0); Mean Corpuscular Hemoglobin 25.7 pg (28.0-34.0); Mean Corpuscular Volume 86.8 fl (81-99); Mean Platelet Volume 12.2 fL (7.4-10.4); Monocytes # 0.1 10^3/uL (0.2-0.9); Monocytes % 0.9 %; Neutrophils % 87.9 %; Nucleated Red Blood Cells % 0 %; Platelet Count 151 10^3/cmm (130-400); Red Blood Count 5.38 10^6/uL (4.1-5.3); Red Cell Distribution Width 16.5 % (12.1-15.1); White Blood Count 6.4 10^3/uL (4.0-10.0)
[2022-02-26 04:17] LABS: Blood Urea Nitrogen 20 mg/dL (8-23); Calcium 9.6 mg/dL (8.5-10.5); Carbon Dioxide 28 mmol/L (22-29); Chloride 95 mmol/L (98-107); Glomerular Filtration Rate 62.3 mL/min (90-130); Glucose 334 mg/dL (65-115); Magnesium 2.1 mg/dL (1.7-2.3); Osmolality Calculated 300 mOsm/kg (285-295); Sodium 137 mmol/L (136-145)
[2022-02-26 04:18] LABS: Lactic Sepsis W/Reflex 2.6 mmol/L (0.5-2.2)
[2022-02-26 04:26] LABS: Anion Gap 18.4 (5-19); Potassium 4.4 mmol/L (3.5-5.1)
[2022-02-26 05:43] LABS: Reflex Lactate Order REFLEX LACTIC ORDERD
--- NOTE | 2022-02-26 06:00 | USCV_ITS ---
Yaquelin Loera Age: 66 Gender: F : 1955 Exam Date: 02/26/2022 07:53 Ordering Phys: Savita Alas MD Technologist: CALE Exam Location: [facility] [place] Indication: PULM EDEMA BP: 143 / 102 HR: 87 Rhythm: Sinus Technical Quality: Adequate MEASUREMENTS (Male / Female) Normal Values 2D ECHO LV Diastolic Diameter PLAX 5.8 cm 4.2 - 5.9 / 3.9 - 5.3 cm LV Systolic Diameter PLAX 4.1 cm IVS Diastolic Thickness 0.6 cm 0.6 - 1.0 / 0.6 - 0.9 cm IVS Systolic Thickness 0.7 cm LVPW Diastolic Thickness 0.8 cm 0.6 - 1.0 / 0.6 - 0.9 cm LVPW Systolic Thickness 1.0 cm LVOT Diameter 1.6 cm LV Ejection Fraction 2D Teich 53.8 % LV Ejection Fraction MOD 2C 37.0 % LV Ejection Fraction 2C AL 36.8 % LA Diameter 3.4 cm IVC Diameter 1.5 cm M-MODE Aortic Annulus Diameter 2.9 cm LA Ao Ratio MM 1.1 MV E Point Septal Separation 1.6 cm DOPPLER AV Peak Velocity 178.0 cm/s LVOT Peak Velocity 79.0 cm/s AV Area Cont Eq vti 0.9 cm squared AV Area Cont Eq pk 0.9 cm squared MV Area PHT 5.0 cm squared Mitral E to A Ratio 1.6 MV E' Velocity 76.5 cm/s Mitral E to MV E' Ratio 23.7 Mitral E to LV E' Lateral Ratio 25.8 Mitral E to LV E' Septal Ratio 22.3 TR Peak Velocity 400.0 cm/s TR Peak Gradient 64.0 mmHg TV Peak E Velocity 85.0 cm/s Right Atrial Pressure 9.0 mmHg Pulmonary Artery Systolic Pressu 73.0 mmHg PV Peak Velocity 105.0 cm/s FINDINGS Left Ventricle Normal left ventricular cavity size. Mildly decreased left ventricular systolic function. Left ventricular ejection fraction is estimated at 40-45 %. Grade I/IV diastolic dysfunction (abnormal relaxation filling pattern), normal to mildly elevated filling pressures. Right Ventricle Normal right ventricular size. Severe pulmonary hypertension, RVSP 73 mmHg. Right Atrium The right atrium is normal in size. Left Atrium The left atrium is normal in size. Mitral Valve Structurally normal mitral valve. Mild mitral valve regurgitation. Aortic Valve Structurally normal aortic valve without significant sclerosis or stenosis. There is no aortic regurgitation. Tricuspid Valve Structurally normal tricuspid valve. Trace tricuspid valve regurgitation. Pulmonic Valve Pulmonic valve not well visualized. Pericardium Normal pericardium without effusion. Aorta Normal ascending aorta dimension. IVC The inferior vena cava appears normal. CONCLUSIONS Normal left ventricular cavity size. Mildly decreased left ventricular systolic function. Left ventricular ejection fraction is estimated at 40-45 %. Grade I/IV diastolic dysfunction (abnormal relaxation filling pattern), normal to mildly elevated filling pressures. Normal right ventricular size. Severe pulmonary hypertension, RVSP 73 mmHg. Structurally normal mitral valve. Mild mitral valve regurgitation. It should be noted that the pulmonary artery pressure measured at 73 mmHg may not be accurate. There is no corroboration with tricuspid regurgitation, paradoxical motion of the septum, or a dilated inferior vena cava. Clinical correlation is recommended. Additionally, the previous echocardiogram done on January 20, 2021 did not reveal any evidence of pulmonary hypertension. The difference on this study is that ejection fraction is slightly lower. Dr. Beau Rm MD (Electronically Signed) Final Date: 26 February 2022 12:22 S
[2022-02-26 06:52] LABS: Lactic Acid level (Lactate) 1.7 mmol/L (0.5-2.2)
[2022-02-26 06:58] LABS: Glucose Point of Care 263 mg/dL (70-110)
--- NOTE | 2022-02-26 08:00 | XRR_ITS ---
PROCEDURE INFORMATION: Exam: XR Chest Exam date and time: 02/26/2022 7:52 AM Age: 66 years old Clinical indication: Other: F/u pulm edema TECHNIQUE: Imaging protocol: Radiologic exam of the chest. Views: 1 view. COMPARISON: 1. CR (CHEST, ) 02/25/2022 9:52 PM 2. CR (CHEST, ) 02/25/2022 9:52 PM 3. CR (CHEST, ) 02/25/2022 4:58 PM FINDINGS: Lungs: Persistent increased density in the left lung base may be due to overlapping soft tissue structures this is unchanged from prior exams. The remainder of the lung parenchyma is clear. Pleural spaces: No pneumothorax. No large pleural effusion. Heart/Mediastinum: The heart is enlarged for size, similar to prior exam. Bones/joints: Mild degenerative changes in the shoulder joints. XR/XR chest 1V portable [id number] IMPRESSION: 1. No significant change from prior exams. 2. Stable cardiomegaly.
[2022-02-26] MEDS: insulin lispro 100 unit/1 mL SUBCUT ×3 (09:06→17:24)
[2022-02-26] MEDS: gabapentin 300 mg Capsule PO ×2 (09:06→17:24)
[2022-02-26] MEDS: pantoprazole DR 40 mg Tablet PO (09:06)
[2022-02-26] MEDS: roflumilast 500 mcg Tablet PO (09:06)
[2022-02-26] MEDS: venlafaxine ER (24HR) 75 mg Capsule PO (09:07)
[2022-02-26] MEDS: aspirin 81 mg EC Tablet PO (09:07)
[2022-02-26] MEDS: bumetanide 0.25 mg/mL SDV 4 mL 0.5 MG IVP (09:07)
[2022-02-26 12:27] LABS: Glucose Point of Care 260 mg/dL (70-110)
[2022-02-26 13:58] LABS: D Dimer 1.05 ug/mIFEU (0-0.59)
--- NOTE | 2022-02-26 14:12 | CTR_ITS ---
PROCEDURE INFORMATION: Exam: CTA Chest With Contrast Exam date and time: 02/26/2022 6:15 PM Age: 66 years old Clinical indication: Shortness of breath; Additional info: Assess for pe TECHNIQUE: Imaging protocol: Computed tomographic angiography of the chest with contrast. 3D rendering (Not supervised by radiologist): MIP and/or 3D reconstructed images were created by the technologist. Radiation optimization: All CT scans at this facility use at least one of these dose optimization techniques: automated exposure control; mA and/or kV adjustment per patient size (includes targeted exams where dose is matched to clinical indication); or iterative reconstruction. Contrast material: OMNIPAQUE 350; Contrast volume: 82 ml; Contrast route: INTRAVENOUS (IV); COMPARISON: CT angio chest PE protcl [id number] 11/08/2020 9:08 PM RADIATION DOSE METRICS: Total DLP (mGy-cm): 526.07 FINDINGS: Pulmonary arteries: Normal. No pulmonary emboli. Aorta: Unremarkable. No aortic aneurysm. No aortic dissection. Lungs: Mild mosaic attenuation features of the lung parenchyma. No focal pulmonary consolidation. No central airway obstruction. Pleural spaces: Unremarkable. No pneumothorax. No pleural effusion. Heart: Mild severity multichamber cardiac dilation. Negative for pericardial effusion. Mediastinal space: Unremarkable thoracic esophagus. Lymph nodes: Unremarkable. No enlarged lymph nodes. Bones/joints: Unremarkable. No acute fracture. Soft tissues: Unremarkable. CT/CT angio chest PE protcl [id number] IMPRESSION: Negative for pulmonary embolism.
--- NOTE | 2022-02-26 15:14 | PM.DCS ---
Discharge Providers Date of Admission: 02/25/22 19:50 Date of Discharge: February 26, 2022 Attending Provider at Admission: Savita Alas MD Attending Provider at Discharge: Cornelio Ball Primary Care Provider: Tashi Acosta MD Diagnoses at Discharge Discharge Diagnosis (1) Acute and chronic respiratory failure ([id number]): Status: Resolved (2) Small airways disease: Status: Acute (3) Nicotine addiction: Status: Acute (4) Benign essential hypertension with target blood pressure below 140/90: Status: Acute (5) Moderate to severe mitral regurgitation: Status: Acute (6) Acute diastolic heart failure: Status: Acute Reason for Visit Reason for Visit: sob x 2 days Brief History: Yaquelin Loera is a 66 year old female with PMH?severe restrictive lung disease, chronic hypercapnic respiratory failure, obesity hypoventilation syndrome, small airways disease?, non ischemic cardiomyopathy, diabetes, presented to the hospital today for complaint of shortness of breath that has been progressively getting worse. She came via EMS. She uses 2L NC at home around the clock at home and o2 saturation dropped to low 90's at home. SHe has a nonproductive cough as well.? Patient states she has been having diarrhea since last 2 days.? It is loose.? Denies chest pain, fever, nausea, vomitting, palpitations.? She states she catches pneumonia very very easily.? She is on Daliresp, albuterol at home.? She says she was offered by the ER doc to go home however she would like to stay in the hospital since she is very concerned about her respiratory status.? She does feel better after getting Lasix. ED Course: BP 140/80, temp 97.4, RR 28, pulse 97 and saturating 94% on 2L NC. BNP 948. Influenza swab negative, covid swab negative. CXR shows cardiomegaly. Bibasilar atelectasis vs. infiltrate. Patient given lasix 20 IV x1 and a dose of ceft and azithromycin. WBC normal. Lactic acid 2.6 on arrival. Trop 15, 14. 6 hour pending. Hospital Course Hospital Course She felt much better this morning after additional diuresis. She has some dry cough. Remains afebrile, without leukocytosis. Procalcitonin was normal. Chest x-ray with some basilar atelectasis versus infiltrates. Pneumonia appears less likely. Rapid flu and COVID-19 were negative. Urine bacterial antigens negative. Her stool was tested for C. difficile which was negative. Diarrhea has subsided. She was assessed by TTE: CONCLUSIONS ?Normal left ventricular cavity size. Mildly decreased left ?ventricular systolic function. Left ventricular ejection ?fraction is estimated at 40-45 %. Grade I/IV diastolic ?dysfunction (abnormal relaxation filling pattern), normal to ?mildly elevated filling pressures. ?Normal right ventricular size. Severe pulmonary hypertension, ?RVSP 73 mmHg. ?Structurally normal mitral valve. Mild mitral valve ?regurgitation. ?It should be noted that the pulmonary artery pressure measured ?at 73 mmHg may not be accurate.? There is no corroboration with ?tricuspid regurgitation, paradoxical motion of the septum, or a ?dilated inferior vena cava.? Clinical correlation is ?recommended.? Additionally, the previous echocardiogram done on ?January 20, 2021 did not reveal any evidence of pulmonary ?hypertension.? The difference on this study is that ejection ?fraction is slightly lower. With now noted possible severe pulmonary hypertension, D-dimer was assessed, found abnormal. Tenogram chest is obtained to assess for PE. She is asked to follow-up with pulmonology and cardiology regarding chronic lung disease and possible pulmonary hypertension, as well as assessment of decreasing ejection fraction, with additional referral for assessment by stress testing. No PE on CTA. Suspect pulmonary hypertension may be related to her chronic lung disease and/or heart disease. Physical Exam Narrative: NC 2L Const: COMMON NORMALS: patient oriented x3 and alert GENERAL APPEARANCE: cooperative NUTRITIONAL APPEARANCE: obese ORIENTATION/CONSCIOUSNESS: Yes awake HENMT: COMMON NORMALS: oropharynx normal Neck/C-Spine: COMMON NORMALS: no JVD Resp: COMMON NORMALS: normal respiratory effort and clear to auscultation bilaterally EFFORT & INSPECTION: Yes able to speak in complete sentences AUSCULTATION: clear to auscultation bilaterally Cardio: COMMON NORMALS: no JVD, regular rhythm, S1 normal heart sound present, S2 normal heart sound present and No murmurs present (Cardio) RHYTHM: regular rhythm HEART SOUNDS: S1 normal heart sound present and S2 normal heart sound present GI: COMMON NORMALS: Normal to inspection, nondistended, normoactive bowel sounds present, Soft to palpation and non-tender PALPATION: Yes Soft to palpation Extremity: COMMON NORMALS: no joint enlargement and no pedal edema Neuro: COMMON NORMALS: patient oriented x3 and moves all extremities SENSORIUM/ORIENTATION: Yes alert Skin: COMMON NORMALS: no rashes or lesions noted GENERAL SKIN EXAM: no rashes or lesions noted Discharge Data Studies Completed and Pending Completed Studies During Hospitalization Category Date Time Status XR chest 1V portable [id number] Routine Exams 02/25/22 21:07 Completed XR chest 1V portable [id number] Routine Exams 02/26/22 08:00 Completed XR chest 1V portable [id number] Stat Exams 02/25/22 16:43 Completed CV. echo complete* [id number] Urgent Ultrasound 02/26/22 06:00 Completed Pending at discharge Category Date Time Status CTA chest [CT angio chest PE protcl [id number]] Routine Cat Scan 02/26/22 14:12 Ordered Blood Culture Stat Lab 02/25/22 17:01 Results Clostridioides Difficile PCR Routine Lab 02/25/22 17:50 Results Enteric Bacterial Panel by PCR Routine Lab 02/25/22 17:50 Results MRSA by PCR Stat Lab 02/25/22 23:11 Received Sputum Culture and Gram Stain Stat Lab 02/25/22 21:10 Uncollected Urine Culture Routine Lab 02/25/22 21:47 Received Radiology Impressions Chest X-Ray 02/26/22 08:00 IMPRESSION: 1. No significant change from prior exams. 2. Stable cardiomegaly. Laboratory Results WBC 6.4 10^3/uL (4.0-10.0) 02/26/22 03:05 RBC 5.38 10^6/uL (4.1-5.3) H 02/26/22 03:05 Hgb 13.8 g/dL (11.5-15.3) 02/26/22 03:05 Hct 46.7 % (37.0-47.0) 02/26/22 03:05 MCV 86.8 fl (81-99) 02/26/22 03:05 MCH 25.7 pg (28.0-34.0) L 02/26/22 03:05 MCHC 29.6 g/dL (30.0-36.0) L 02/26/22 03:05 RDW 16.5 % (12.1-15.1) H 02/26/22 03:05 Plt Count 151 10^3/cmm (130-400) 02/26/22 03:05 MPV 12.2 fL (7.4-10.4) H 02/26/22 03:05 Neut % (Auto) 87.9 % 02/26/22 03:05 Lymph % (Auto) 10.0 % 02/26/22 03:05 [place] % (Auto) 0.9 % 02/26/22 03:05 Eos % (Auto) 0.2 % 02/26/22 03:05 Baso % (Auto) 0.2 % 02/26/22 03:05 Neut # (Auto) 5.60 10^3/uL (1.8-7.7) 02/26/22 03:05 Lymph # (Auto) 0.6 10^3/uL (0.8-4.8) L 02/26/22 03:05 [place] # (Auto) 0.1 10^3/uL (0.2-0.9) L 02/26/22 03:05 Eos # (Auto) 0.0 10^3/uL (0.0-0.8) 02/26/22 03:05 Baso # (Auto) 0.0 10^3/uL (0.0-0.1) 02/26/22 03:05 Nucleated RBC % (auto) 0 % 02/26/22 03:05 Nucleated RBCs # 0.0 /100WBC 02/26/22 03:05 D-Dimer 1.05 ug/mIFEU (0-0.59) H 02/26/22 13:34 Sodium 137 mmol/L (136-145) 02/26/22 03:05 Potassium 4.4 mmol/L (3.5-5.1) 02/26/22 03:05 Chloride 95 mmol/L (98-107) L 02/26/22 03:05 Carbon Dioxide 28 mmol/L (22-29) 02/26/22 03:05 Anion Gap 18.4 (5-19) 02/26/22 03:05 BUN 20 mg/dL (8-23) 02/26/22 03:05 Creatinine 0.9 mg/dL (0.5-0.9) 02/26/22 03:05 GFR Calculation 62.3 mL/min (90-130) L 02/26/22 03:05 Glucose 334 mg/dL (65-115) H 02/26/22 03:05 POC Glucose 260 mg/dL (70-110) H 02/26/22 12:18 Estimat Average Glucose 151 02/25/22 16:18 Hemoglobin A1c 6.9 % (4.0-6.0) H 02/25/22 16:18 Calculated Osmolality 300 mOsm/kg (285-295) H 02/26/22 03:05 Lactic Acid 2.6 mmol/L (0.5-2.2) H 02/26/22 03:05 Lactic Acid (Sepsis) 1.7 mmol/L (0.5-2.2) 02/26/22 06:25 Calcium 9.6 mg/dL (8.5-10.5) 02/26/22 03:05 Magnesium 2.1 mg/dL (1.7-2.3) 02/26/22 03:05 Troponin T Baseline 15 ng/L (0-10) H 02/25/22 16:18 Troponin T 120 Minute 14.86 ng/L (0-10) H 02/25/22 18:51 Delta Troponin T -0.14 ABS# (0-10) L 02/25/22 18:51 Troponin T Hi Sens 6Hr 10.84 ng/L (0-10) H 02/25/22 22:42 Troponin T Hi Sens 6Hr Delta -4.16 ng/L (0-12) L 02/25/22 22:42 NT-Pro-B Natriuret Pep 948 pg/mL (0-125) H 02/25/22 16:18 Procalcitonin 0.09 ng/mL (0-0.5) 02/25/22 18:51 TSH 1.48 uIU/mL (0.27-4.20) 02/25/22 18:51 Urine Color Yellow (Yellow) 02/25/22 21:47 Urine Appearance Clear (CLEAR) 02/25/22 21:47 Urine pH 7 (5-7) 02/25/22 21:47 Ur Specific [place] 1.005 (1.005-1.030) 02/25/22 21:47 Urine Protein Neg (Negative) 02/25/22 21:47 Urine Glucose (UA) Norm (Normal) 02/25/22 21:47 Urine Ketones Negative (Negative) 02/25/22 21:47 Urine Blood Neg (Negative) 02/25/22 21:47 Urine Nitrate Negative (Negative) 02/25/22 21:47 Urine Bilirubin Neg (Negative) 02/25/22 21:47 Urine Urobilinogen Neg mg/dL (Negative) 02/25/22 21:47 Ur Leukocyte Esterase 1+ (Negative) H 02/25/22 21:47 Urine RBC None /hpf (0-2) 02/25/22 21:47 Urine WBC 5-10 /hpf (0-5) H 02/25/22 21:47 Ur Squamous Epith Cells None /hpf (0-5) 02/25/22 21:47 Amorphous Sediment Not Reportable 02/25/22 21:47 Urine Bacteria 1+ /hpf (NONE) H 02/25/22 21:47 Influenza Type A Ag negative (Negative) 02/25/22 17:42 Influenza Type B Ag negative (Negative) 02/25/22 17:42 SARS-CoV-2 Ag (Rapid) negative (Negative) 02/25/22 17:42 Vitals Last Vital Signs Temp 97.7 F 02/26/22 13:00 Pulse 92 02/26/22 14:00 Resp 16 02/26/22 14:00 BP 113/69 02/26/22 13:00 Pulse Ox 96 02/26/22 14:00 O2 Del Method 02/26/22 14:00 O2 Flow Rate 2 02/26/22 14:00 Discharge Plan Discharge Patient Disposition: Home Condition: Stable Prescriptions: Continued rosuvastatin 40 mg tablet 40 mg PO DAILY@20 (DME) Diabetic Shoes See Rx Instructions .Route .MEDSUPPLY Qty: 1 0RF Rx Instructions: As directed ammonium lactate 12 % cream 1 applic topical DAILY Qty: 385 0RF albuterol sulfate 90 mcg/actuation HFA aerosol inhaler 1 puff INHALATION Q6H PRN (Reason: Shortness Of Breath) Qty: 8.5 3RF Cough Drops See Rx Instructions .ROUTE .COMPLEX Rx Instructions: may keep at bedside ondansetron 4 mg tablet,disintegrating 4 mg PO Q6H PRN (Reason: nausea and vomiting) Qty: 14 0RF naproxen [Naprosyn] 500 mg tablet 500 mg PO BID PRN (Reason: pain) Qty: 20 0RF Myrbetriq 25 mg tablet extended release 24 hr 25 mg PO DAILY@0700 promethazine-DM 6.25-15 mg/5 mL Syrup 5 ml PO Q6H PRN (Reason: Cough) Ozempic 0.25 mg or 0.5 mg(2 mg/1.5 mL) Pen Injector 0.5 mg SUBCUT Q7D Rx Instructions: on mondays hydroxyzine HCl 25 mg Tablet 25 mg PO Q8H PRN (Reason: Anxiety) fluoride (sodium) [SF 5000 Plus] 1.1 % Cream See Rx Instructions .ROUTE .COMPLEX Rx Instructions: brush on teeth bid with use of regular tooth paste do not eat or drink 30 mins after (use at 07:00 & 20:00) aspirin 81 mg tablet,delayed release (DR/EC) 81 mg PO DAILY@07 Acidophilus 175 mg PO DAILY@19 loperamide 2 mg Tablet 2 mg PO QID PRN (Reason: Diarrhea) pantoprazole 40 mg tablet,delayed release (DR/EC) 40 mg PO DAILY@07 insulin aspart U-100 [Novolog U-100 Insulin aspart] 100 unit/mL solution See Rx Instructions .ROUTE .COMPLEX Rx Instructions: PER SLIDING SCALE AC MEALS AND HS @ 05:30,11:00,16:00,20:00 150-200=0 units 201-250=2 units 251-300=4 units 301-350=6 units 351-400=8 units Debrox 6.5 % Drops See Rx Instructions .ROUTE .COMPLEX Rx Instructions: 5-10 GTTS EACH EAR MONTHLY. Januvia 100 mg Tablet 100 mg PO DAILY@0700 Flonase Sensimist 27.5 mcg/actuation [place],Suspension 1 spray INTRANASAL DAILY@0700 Daliresp 500 mcg tablet 500 mcg PO DAILY@0700 Trelegy Ellipta 100-62.5-25 mcg blister with device 1 inh inhalation DAILY@07 acetaminophen [Tylenol Extra Strength] 500 mg Tablet 1,000 mg PO Q4H MDD 8 tabs PRN (Reason: Pain) magnesium hydroxide [Milk of Magnesia] 400 mg/5 mL Suspension See Rx Instructions .ROUTE .COMPLEX Rx Instructions: 30ML PO ONCE DAILY PRN IF NO BM FOR 3 DAYS bisacodyl [Dulcolax (bisacodyl)] 10 mg Suppository 10 mg OK DAILY PRN (Reason: Constipation) Rx Instructions: IF NO BM FROM MOM, IF CAN'T TAKE PO & NO RSLTS OF M.O.M. Fleet Enema 19-7 gram/118 mL Enema 118 ml OK DAILY PRN (Reason: Constipation) Rx Instructions: IF NO RESUTLS FROM M.O.M. gabapentin 300 mg capsule 300 mg PO BID@0700,2000 bisacodyl [Dulcolax (bisacodyl)] 5 mg Tablet,Delayed Release (Dr/Ec) 10 mg PO DAILY PRN (Reason: Constipation) melatonin 5 mg Tablet 5 mg PO BEDTIME@2000 pioglitazone [Actos] 15 mg Tablet 7.5 mg PO DAILY@0700 venlafaxine 75 mg Capsule,Extended Release 24hr 75 mg PO DAILY@0700 Saline Nasal 0.65 % Aerosol,[place] See Rx Instructions .ROUTE .COMPLEX Rx Instructions: SQUEEZE INTO DRY NOSTRILS BID THEN FOLLOW WITH BACTROBAN. USE AT 0700 AND 1999 levetiracetam 500 mg tablet See Rx Instructions .ROUTE .COMPLEX Rx Instructions: 500mg po qam @07:00 and 1000mg po daily@19:00 Tresiba FlexTouch U-200 200 unit/mL (3 mL) insulin pen 10 unit SUBCUT BEDTIME zinc acetate 50 mg (zinc) Capsule 50 mg PO DAILY@07 bumetanide 0.5 mg tablet 0.5 mg PO DAILY@07 Vitamin D3 50 mcg (2,000 unit) Capsule 50 mcg PO DAILY@07 ipratropium-albuterol 0.5 mg-3 mg(2.5 mg base)/3 mL Solution For Nebulization 3 ml INHALATION Q4H PRN (Reason: Shortness Of Breath) Refresh Tears 0.5 % Drops 1 - 2 drp ophthalmic (eye) .EVERY 2 HOURS PRN (Reason: Dry Eye(S)) clotrimazole 1 % Cream See Rx Instructions .ROUTE .COMPLEX Rx Instructions: apply topically to scales in right foot lactulose 10 gram/15 mL solution 10 g PO DAILY PRN (Reason: constipation) Qty: 473 0RF oxycodone 5 mg tablet 5 mg PO Q12H PRN (Reason: pain) Qty: 10 0RF Senna-S 8.6-50 mg tablet 1 tab-cap PO DAILY Qty: 30 0RF Discharge Orders: Discharge Order (Routine); Ordered 02/26/22 Ordered By: Cornelio Ball Other Ambulatory Orders: Sestamibi Stress Test Request (Routine) Timeframe: 3 Days Facility: [facility] - Location: Cardiac Diagnostic Laboratory Ordered By: Cornelio Ball Referrals: Dion Levy MD [Physician] - 2 weeks ([facility] [place] will contact you to schedule an follow-up appointment in 2 weeks. If you haven't heard from the by Sunday afternoon. Please call ) Jay Adler MD [Physician] - 1 month (During your follow-up with Liane Calixto you will be scheduled for an follow-up with Dr. Adler. ) Liane Calixto FNP [Nurse Practitioner] - 1 week ([facility] [place] will contact you to schedule and follow-up in 1 week. If you haven't from them by Sunday afternoon. Please call ) Tashi Acosta MD [Primary Care Provider] - 4-7 days (Please call for an follow-up with Dr. Acosta in 4 to 7 days. ) Discharge Diet: Cardiac Discharge Activity: Increase activity as tolerated Patient Instructions: Community Acquired Pneumonia (DC), COPD Stoplight, Opioid Safety Activity Restrictions/Additional Instructions: Limit fluid intake to less than 1400 mL in a day. Follow-up with outpatient stress test due to noted decrease in ejection fraction and follow-up with your residential team leader. Double the Bumex dose in case you notice worsening shortness of breath when lying down, gain more than 3 pounds in 2 days, building up of lower extremity edema and contact your residential team leader. Continue oxygen as usual to maintain goal saturation 92%. Follow-up with your lung specialist. Discharge Attestations Time Spent in Discharge Care*: greater than 30 min Quality Metrics Clinical Quality Measures [ No reported AMI, CVA or VTE this stay] Coding Level of Care Code Acute Chg FW DC note Exam Comprehensive Diagnoses Acute and chronic respiratory failure ([id number]-xwsntmo) J96.20 Small airways disease J98.4 Nicotine addiction F17.200 Benign essential hypertension with target blood pressure below 140/90 I10 Moderate to severe mitral regurgitation I34.0 Acute diastolic heart failure I50.31
--- NOTE | 2022-02-26 16:29 | PC.NURSE ---
called ct department but they are not ready for her test yet. notified.
[2022-02-26 17:03] LABS: Glucose Point of Care 264 mg/dL (70-110)
[2022-02-26] MEDS: cefTRIAXone 1,000 MG in sodium chloride 0.9% (plus) 50 ML 100 MG IV (17:24)
[2022-02-26] MEDS: azithromycin 500 MG in sodium chloride 0.9% 250 ML 250 MG IV (17:48)
[2022-02-26] MEDS: iohexol 350 mg/mL 500 mL Btl (per mL) IV (18:19)
[2022-02-26 20:28] LABS: Glucose Point of Care 170 mg/dL (70-110)
[2022-02-26] MEDS: insulin glargine 100 units/1 mL 10 UNIT SUBCUT (20:53)
[2022-02-26] MEDS: enoxaparin 40 mg/0.4 mL Syringe SUBCUT (20:53)
--- NOTE | 2022-02-26 23:17 | PC.NURSE ---
Patient discharged to [facility] at 2210 after discharge instructions reviewed with patient. She was taken to the main entrance via WC with portable oxygen on at 2L nc. This tank was taken with her as it had been provided for discharge. IV had been discontinued and dressing intact. Report given to Sarah at [facility].
== END 2022-02-26 22:10 | disposition home or self-care (01) ==
LOC: ER 19:50 → ER IP 20:11 → CSU 21:16
PROVIDERS: Admitting Provider Internal Medicine; Emergency Provider Family Medicine; PCP Family Medicine; Visit Provider Internal Medicine
DX: J96.20 Acute and chronic respiratory failure, unspecified whether with hypoxia or hypercapnia (principal); J98.4 Other disorders of lung; F17.200 Nicotine dependence, unspecified, uncomplicated; I34.0 Nonrheumatic mitral (valve) insufficiency; I11.0 Hypertensive heart disease with heart failure; I50.33 Acute on chronic diastolic (congestive) heart failure; I27.20 Pulmonary hypertension, unspecified; J44.9 Chronic obstructive pulmonary disease, unspecified; E78.5 Hyperlipidemia, unspecified; G47.33 Obstructive sleep apnea (adult) (pediatric); E11.9 Type 2 diabetes mellitus without complications; F17.210 Nicotine dependence, cigarettes, uncomplicated
CPT/HCPCS: 36415; 36416; 71045; 71275; 80048; 81001; 82962; 83036; 83605; 83735; 83880; 84145; 84443; 84484; 85025; 85378; 86403; 87040; 87086; 87426; 87449; 87493; 87506; 87641; 87804; 93005; 93306; 94640; 94664; 94760; 96365; 96366; 96367; 96372; 96375; 99285; G0378; J0456; J0696; J1650; J1815; J1940; J3490; J7050; Q9967

== ENCOUNTER 2022-02-28 12:58 | Outpatient (CLI) | payer MEDICARE, MEDICAID, SELFPAY ==
[2022-02-28 13:20] VITALS: BP 127/83; PULSE 88; RESP 18; TEMP 36.7; O2SAT 90
[2022-02-28] MEDS: denosumab 60 mg SDV SUBCUT (13:29)
[2022-02-28 13:45] VITALS: BP 146/85; PULSE 91; RESP 18; TEMP 36.8; O2SAT 90
== END 2022-02-28 12:59 | disposition home or self-care (01) ==
PROVIDERS: PCP Family Medicine; Visit Provider Family Medicine
DX: M81.0 Age-related osteoporosis without current pathological fracture (principal)
CPT/HCPCS: 96372; J0897

== ENCOUNTER 2022-04-29 17:33 | Emergency (ER) | payer MEDICARE, MEDICAID, SELFPAY ==
[2022-04-29 17:38] VITALS: BP 119/62; PULSE 81; RESP 16; TEMP 36.4; O2SAT 92
--- NOTE | 2022-04-29 18:47 | XRR_ITS ---
PROCEDURE INFORMATION: Exam: XR Lumbosacral Spine Exam date and time: 04/29/2022 7:27 PM Age: 67 years old Clinical indication: Low back pain; Patient HX: Lifting injury; Additional info: L low back pain TECHNIQUE: Imaging protocol: Radiologic exam of the lumbosacral spine. Views: 2 or 3 views. COMPARISON: CT lumbar spine wo con* [id number] 10/18/2019 1:08 PM FINDINGS: Bones/joints: Stable chronic compression fractures of T12 and L4. Newly acquired minimal compression of superior L3. Multilevel degenerative endplate changes. The facets are intact. Soft tissues: Unremarkable. XR/XR lumbar spine 2-3V* [id number] IMPRESSION: 1. Minimal compression of superior L3, newly acquired since the prior study. 2. Stable T12 and L4 compression fractures.
[2022-04-29 18:55] VITALS: RESP 18
[2022-04-29] MEDS: oxyCODONE-APAP 5-325 mg Tablet 1 TAB PO (18:55)
--- NOTE | 2022-04-29 19:03 | ED_ITS ---
HPI - Extremity Problem General: Chief complaint: Extremity Injury, Lower Stated complaint: Left side Hip pain Time Seen by Provider: 04/29/22 18:24 Source: patient History of Present Illness: 67-year-old female who was moving furniture earlier. She complains of significant pain to her left lumbosacral region, mainly over left SI joint. The pain is nonradicular. No numbness or tingling. No paresthesias to the genital area. No weakness. MD Complaint: joint pain Onset (ago): hour(s) Pain Consistency: constant Location: left and other (Posterior hip) Associated symptoms: Deny chest pain or fever(s) Review of Systems Const: Denies: fever(s) or chills Card: Denies: chest pain Resp: Denies: dyspnea GI: Denies: abdominal pain or vomiting : Denies: flank pain Musc: Reports: back pain Neuro: Denies: headache(s) PFSH ED PFSH: Medical History Acute on chronic diastolic (congestive) heart failure Benign essential hypertension with target blood pressure below 140/90 Chronic respiratory failure with hypoxia and hypercapnia COPD (chronic obstructive pulmonary disease) Depression Diastolic congestive heart failure Hyperlipidemia Hypertension Moderate to severe mitral regurgitation Nonischemic cardiomyopathy Obesity Obesity hypoventilation syndrome Obstructive sleep apnea Pulmonary hypertension Restrictive lung disease Seizure disorder Sleep apnea Small bowel obstruction T12 vertebral fracture Tricuspid regurgitation Type 2 diabetes mellitus Surgical History H/O mitral valve replacement History of Ulnar nerve compression Family History Brother CAD (coronary artery disease) Sister CAD (coronary artery disease) Grandmother Diabetes Mother Stroke Denies family history of Clotting disorder Dementia Chronic kidney disease (CKD) Suicide Anesthesia complication Bleeding disorder Lung disease Cancer Social History Smoking and tobacco status: current every day smoker cigarettes Packs smoked per day: 0.25 Years cigarettes smoked: 33 [ Other cigarette details: Hx of 1PPD x 30 Years, started 1991] Second hand smoke exposure: Yes Smoking risk assessment/counseling performed?: Yes Alcohol intake: never Counseling given: No Counseling given: No Caregiver/support person: Yes Lives independently: No Housing: Assisted Living Facility Marital status: / Current occupational status: retired and disabled History of recent travel: No Current gender identity: Female Physical Exam Const: GENERAL APPEARANCE: cooperative and in distress HENMT: COMMON NORMALS: normocephalic and atraumatic HEAD & SCALP: normocephalic and atraumatic NOSE: Normal nares present Eye: COMMON NORMALS: Equal, round and reactive pupils present and EOMs intact bilaterally PUPIL: Yes Equal, round and reactive pupils present Chest: CHEST: Yes Symmetrical chest wall rise Resp: COMMON NORMALS: normal respiratory effort and No use of accessory muscles Cardio: COMMON NORMALS: regular rate and regular rhythm RATE: regular rate RHYTHM: regular rhythm Back/Pelvis: OTHER: Exam reveals tenderness of the left superior sacroiliac joint. There is mild L5-S1 tenderness, but on the left and not in the midline. No right-sided tenderness. No radicular pain on straight leg raise testing. Sensation is intact distally no anterior hip pain Course Vital Signs: Vital signs: Vital Signs Temperature 97.5 F L 04/29/22 17:38 Pulse Rate 81 04/29/22 17:38 Respiratory Rate 18 04/29/22 18:55 Blood Pressure 119/62 04/29/22 17:38 Pulse Oximetry 92 04/29/22 17:38 Oxygen Delivery Me thod 04/29/22 17:38 MDM - Extremity (Nontraumatic) Medical Decision Making X-ray reveals a minimal compression of superior L3 that is new since the prior lumbar spine film. The patient is not tender in this area, and the compression does not appear necessarily acute by x-ray. L4 and T12 compression fractures are stable. No listhesis of L5 on S1. She will be allowed home. Lab Data Radiology Impressions Lumbar Spine X-Ray 04/29/22 18:47 IMPRESSION: 1. Minimal compression of superior L3, newly acquired since the prior study. 2. Stable T12 and L4 compression fractures. Discharge Plan Discharge Patient Disposition: Home Clinical Impression: Sacroiliac sprain Condition: Stable Prescriptions: New tramadol 50 mg tablet 50 mg PO Q8H PRN (Reason: pain) Qty: 10 0RF Discontinued oxycodone 5 mg tablet 5 mg PO Q12H PRN (Reason: pain) Qty: 10 0RF No Action rosuvastatin 40 mg tablet 40 mg PO DAILY@20 (DME) Diabetic Shoes See Rx Instructions .Route .MEDSUPPLY Qty: 1 0RF Rx Instructions: As directed ammonium lactate 12 % cream 1 applic topical DAILY Qty: 385 0RF albuterol sulfate 90 mcg/actuation HFA aerosol inhaler 1 puff INHALATION Q6H PRN (Reason: Shortness Of Breath) Qty: 8.5 3RF Cough Drops See Rx Instructions .ROUTE .COMPLEX Rx Instructions: may keep at bedside ondansetron 4 mg tablet,disintegrating 4 mg PO Q6H PRN (Reason: nausea and vomiting) Qty: 14 0RF naproxen [Naprosyn] 500 mg tablet 500 mg PO BID PRN (Reason: pain) Qty: 20 0RF Myrbetriq 25 mg tablet extended release 24 hr 25 mg PO DAILY@0700 promethazine-DM 6.25-15 mg/5 mL Syrup 5 ml PO Q6H PRN (Reason: Cough) Ozempic 0.25 mg or 0.5 mg(2 mg/1.5 mL) Pen Injector 0.5 mg SUBCUT Q7D Rx Instructions: on mondays hydroxyzine HCl 25 mg Tablet 25 mg PO Q8H PRN (Reason: Anxiety) fluoride (sodium) [SF 5000 Plus] 1.1 % Cream See Rx Instructions .ROUTE .COMPLEX Rx Instructions: brush on teeth bid with use of regular tooth paste do not eat or drink 30 mins after (use at 07:00 & 20:00) aspirin 81 mg tablet,delayed release (DR/EC) 81 mg PO DAILY@07 Acidophilus 175 mg PO DAILY@19 loperamide 2 mg Tablet 2 mg PO QID PRN (Reason: Diarrhea) pantoprazole 40 mg tablet,delayed release (DR/EC) 40 mg PO DAILY@07 insulin aspart U-100 [Novolog U-100 Insulin aspart] 100 unit/mL solution See Rx Instructions .ROUTE .COMPLEX Rx Instructions: PER SLIDING SCALE AC MEALS AND HS @ 05:30,11:00,16:00,20:00 150-200=0 units 201-250=2 units 251-300=4 units 301-350=6 units 351-400=8 units Debrox 6.5 % Drops See Rx Instructions .ROUTE .COMPLEX Rx Instructions: 5-10 GTTS EACH EAR MONTHLY. Januvia 100 mg Tablet 100 mg PO DAILY@0700 Flonase Sensimist 27.5 mcg/actuation [place],Suspension 1 spray INTRANASAL DAILY@0700 Daliresp 500 mcg tablet 500 mcg PO DAILY@0700 Trelegy Ellipta 100-62.5-25 mcg blister with device 1 inh inhalation DAILY@07 acetaminophen [Tylenol Extra Strength] 500 mg Tablet 1,000 mg PO Q4H MDD 8 tabs PRN (Reason: Pain) magnesium hydroxide [Milk of Magnesia] 400 mg/5 mL Suspension See Rx Instructions .ROUTE .COMPLEX Rx Instructions: 30ML PO ONCE DAILY PRN IF NO BM FOR 3 DAYS bisacodyl [Dulcolax (bisacodyl)] 10 mg Suppository 10 mg [place] DAILY PRN (Reason: Constipation) Rx Instructions: IF NO BM FROM MOM, IF CAN'T TAKE PO & NO RSLTS OF M.O.M. Fleet Enema 19-7 gram/118 mL Enema 118 ml [place] DAILY PRN (Reason: Constipation) Rx Instructions: IF NO RESUTLS FROM M.O.M. gabapentin 300 mg capsule 300 mg PO BID@0700,2000 bisacodyl [Dulcolax (bisacodyl)] 5 mg Tablet,Delayed Release (Dr/Ec) 10 mg PO DAILY PRN (Reason: Constipation) melatonin 5 mg Tablet 5 mg PO BEDTIME@2000 pioglitazone [Actos] 15 mg Tablet 7.5 mg PO DAILY@0700 venlafaxine 75 mg Capsule,Extended Release 24hr 75 mg PO DAILY@0700 Saline Nasal 0.65 % Aerosol,[place] See Rx Instructions .ROUTE .COMPLEX Rx Instructions: SQUEEZE INTO DRY NOSTRILS BID THEN FOLLOW WITH BACTROBAN. USE AT 0700 AND 1999 levetiracetam 500 mg tablet See Rx Instructions .ROUTE .COMPLEX Rx Instructions: 500mg po qam @07:00 and 1000mg po daily@19:00 Tresiba FlexTouch U-200 200 unit/mL (3 mL) insulin pen 10 unit SUBCUT BEDTIME zinc acetate 50 mg (zinc) Capsule 50 mg PO DAILY@07 bumetanide 0.5 mg tablet 0.5 mg PO DAILY@07 Vitamin D3 50 mcg (2,000 unit) Capsule 50 mcg PO DAILY@07 ipratropium-albuterol 0.5 mg-3 mg(2.5 mg base)/3 mL Solution For Nebulization 3 ml INHALATION Q4H PRN (Reason: Shortness Of Breath) Refresh Tears 0.5 % Drops 1 - 2 drp ophthalmic (eye) .EVERY 2 HOURS PRN (Reason: Dry Eye(S)) clotrimazole 1 % Cream See Rx Instructions .ROUTE .COMPLEX Rx Instructions: apply topically to scales in right foot lactulose 10 gram/15 mL solution 10 g PO DAILY PRN (Reason: constipation) Qty: 473 0RF Senna-S 8.6-50 mg tablet 1 tab-cap PO DAILY Qty: 30 0RF Discharge Orders: Discharge ED (Routine); Ordered 04/29/22 Ordered By: Calin Bowen Referrals: Tashi Acosta MD [Primary Care Provider] - 4-7 days Patient Instructions: Sacroiliitis (ED), Opioid Safety, Pain Management Activity Restrictions/Additional Instructions: Return for numbness or tingling to the genital area, worsening pain with radicular pain down your leg, weakness, other concerning symptoms. See your doctor next week for follow-up. Do not perform any heavy lifting until seen. Coding Level of Care Code ED Fence Machine Operator for Kanchan Abdi
== END 2022-04-29 20:42 | disposition home or self-care (01) ==
PROVIDERS: Emergency Provider Emergency Medicine; PCP Family Medicine
DX: S33.6XXA Sprain of sacroiliac joint, initial encounter (principal); Z79.82 Long term (current) use of aspirin; Z79.4 Long term (current) use of insulin; F17.210 Nicotine dependence, cigarettes, uncomplicated; I11.0 Hypertensive heart disease with heart failure; I50.33 Acute on chronic diastolic (congestive) heart failure; J44.9 Chronic obstructive pulmonary disease, unspecified; E78.5 Hyperlipidemia, unspecified; E11.9 Type 2 diabetes mellitus without complications; X50.0XXA Overexertion from strenuous movement or load, initial encounter
CPT/HCPCS: 72100; 99283

== ENCOUNTER → 2022-05-22 13:56 | Outpatient (BNVA) | payer MEDICARE, MEDICAID, SELFPAY | PROVIDERS: PCP Family Medicine; Visit Provider Internal Medicine Pulmonary Disease | DX: J44.9 Chronic obstructive pulmonary disease, unspecified (principal); F17.219 Nicotine dependence, cigarettes, with unspecified nicotine-induced disorders; J98.4 Other disorders of lung; R91.8 Other nonspecific abnormal finding of lung field; J96.11 Chronic respiratory failure with hypoxia; J96.12 Chronic respiratory failure with hypercapnia | CPT/HCPCS: 99214 ==

== ENCOUNTER 2022-05-31 14:52 | Outpatient (CLI) | payer MEDICARE, MEDICAID, SELFPAY ==
--- NOTE | 2022-05-31 15:02 | MM_ITS ---
WS: [id number] BILATERAL 3D TOMOSYNTHESIS DIGITAL SCREENING MAMMOGRAPHY WITH CAD CLINICAL INFORMATION: SCREENING HISTORY: Screening mammogram. No current complaints. COMPARISON: 2020 TECHNIQUE: Bilateral CC and MLO views. FINDINGS: Scattered fibroglandular densities bilaterally. No suspicious focal mass, asymmetry, calcifications, or architectural distortion. No evidence of malignancy. A few incidental punctate calcifications. MM/[place] [id number] IMPRESSION: BI-RADS: 2-Benign FOLLOW UP: 1 Year Follow-up Recommend return to annual screening mammography.
== END 2022-05-31 14:53 | disposition home or self-care (01) ==
LOC: RAD 14:58
PROVIDERS: PCP Family Medicine; Visit Provider Family Medicine
DX: Z12.31 Encounter for screening mammogram for malignant neoplasm of breast (principal)
CPT/HCPCS: 77063; 77067

== ENCOUNTER 2022-07-03 16:08 | Emergency (ER) | payer MEDICARE, MEDICAID, SELFPAY ==
[2022-07-03 16:17] VITALS: BP 144/92; PULSE 93; RESP 22; TEMP 36.4; O2SAT 91; BMI 47.0
--- NOTE | 2022-07-03 17:03 | XRR_ITS ---
PROCEDURE INFORMATION: Exam: XR Chest Exam date and time: 07/03/2022 5:22 PM Age: 67 years old Clinical indication: Shortness of breath; Prior surgery; Surgery date: 6+ months; Surgery type: Heart; Additional info: SOB TECHNIQUE: Imaging protocol: Radiologic exam of the chest. Views: 1 view. COMPARISON: CR XR chest 1V portable [id number] 02/26/2022 7:52 AM FINDINGS: Lungs: Cardiac silhouette size, and vascularity are somewhat accentuated, similar to prior exam, likely related to poor inspiration/expansion however clinical correlation for mild CHF should be obtained. Upper lungs are clear. Lung bases are suboptimally assessed. Pleural spaces: No pleural effusion. No pneumothorax. Heart/Mediastinum: As above. Bones/joints: No acute osseous findings. Other findings: Single view was submitted. XR/XR chest 1V portable [id number] IMPRESSION: 1. Accentuated cardiac silhouette size and vascularity. See discussion above. 2. No obvious acute consolidation. Suboptimal lung base assessment. Followup including lateral view may be obtained if clinically indicated.
[2022-07-03 17:50] LABS: Basophils % 0.4 %; Eosinophils # 0.5 10^3/uL (0.0-0.8); Eosinophils % 4.9 %; Hematocrit 51.9 % (37.0-47.0); Hemoglobin 15.4 g/dL (11.5-15.3); Lymphocytes # 1.8 10^3/uL (0.8-4.8); Lymphocytes % 16.6 %; Mean Corpuscular HGB Conc 29.7 g/dL (30.0-36.0); Mean Corpuscular Hemoglobin 26.9 pg (28.0-34.0); Mean Corpuscular Volume 90.6 fl (81-99); Mean Platelet Volume 11.1 fL (7.4-10.4); Monocytes # 0.8 10^3/uL (0.2-0.9); Monocytes % 7.1 %; Neutrophils # 7.61 10^3/uL (1.8-7.7); Neutrophils % 70.6 %; Nucleated Red Blood Cells % 0 %; Platelet Count 219 10^3/cmm (130-400); Red Blood Count 5.73 10^6/uL (4.1-5.3); Red Cell Distribution Width 15.4 % (12.1-15.1); White Blood Count 10.8 10^3/uL (4.0-10.0)
[2022-07-03] MEDS: FUROsemide 10 mg/mL SDV 10mL 60 MG IVP (18:12)
[2022-07-03 18:15] LABS: ABG PCO2 44.9 mmHg (35-45); Arterial Blood Gas Hematocrit 48.3 % (37-47); Base Excess ABG 2.3 mmol/L (-2.0-2.0); Blood Gas Allen Test Pos; Blood Gas Sample Site Radial, left; Blood Gas Sample Type Arterial; Carboxyhemoglobin 2.4 %THgb (0.4-20.1); HCO3 ABG 27.8 mmol/L (22-26); HGB O2 Sat 84.9 % (95-100); Methemoglobin 0.5 % (0.4-1.5); Oxygen Device NC; PO2 ABG 58.6 mmHg (80.0-100.0); Total Hemoglobin 15.8 g/dL (12-16)
[2022-07-03 18:16] LABS: INR 0.94 (0.8-1.2)
--- NOTE | 2022-07-03 18:21 | W.ED.SOB ---
HPI - SOB/Dyspnea General: Chief Complaint: Shortness of Breath/Dyspnea Stated Complaint: BC sent for low 02 Time Seen by Provider: 07/03/22 17:44 Source: patient and EMS Mode of arrival: EMS Limitations: no limitations History of Present Illness: HPI Narrative: 67-year-old female who has a history of COPD along with CHF states for last 3 days she has had some increasing dyspnea. States she had some more dyspnea with exertion denies any cough denies any fevers she wears oxygen as needed states she has been wearing 2 L she is 96% here on 2 L. Denies any chest pain denies any improving factors. Associated symptoms: Deny abdominal pain, chest pain, fever(s), nausea or vomiting Review of Systems Const: Denies: fever(s), chills, body aches or change in appetite Eyes: Denies: blurry vision or eye discomfort ENMT: Denies: throat pain or dental pain Card: Denies: chest pain Resp: Reports: dyspnea GI: Denies: abdominal pain, nausea, vomiting or diarrhea : Denies: dysuria Musc: Denies: neck pain or back pain Skin/Breast: Denies: rash Neuro: Denies: headache(s) Psych: Denies: depression Maximo/Lymph: Denies: easy bruising All/Imm: Denies: urticaria PFSH ED PFSH: Medical History Acute on chronic diastolic (congestive) heart failure Benign essential hypertension with target blood pressure below 140/90 Chronic respiratory failure with hypoxia and hypercapnia COPD (chronic obstructive pulmonary disease) Depression Diastolic congestive heart failure Hyperlipidemia Hypertension Moderate to severe mitral regurgitation Nonischemic cardiomyopathy Obesity Obesity hypoventilation syndrome Obstructive sleep apnea Pulmonary hypertension Restrictive lung disease Seizure disorder Sleep apnea Small bowel obstruction T12 vertebral fracture Tricuspid regurgitation Type 2 diabetes mellitus Surgical History H/O mitral valve replacement History of Ulnar nerve compression Family History Brother CAD (coronary artery disease) Sister CAD (coronary artery disease) Grandmother Diabetes Mother Stroke Denies family history of Clotting disorder Dementia Chronic kidney disease (CKD) Suicide Anesthesia complication Bleeding disorder Lung disease Cancer Social History Smoking and tobacco status: current every day smoker cigarettes Packs smoked per day: 0.25 Years cigarettes smoked: 33 [ Other cigarette details: Hx of 1PPD x 30 Years, started 1991] Second hand smoke exposure: Yes Smoking risk assessment/counseling performed?: Yes Alcohol intake: never Counseling given: No Counseling given: No Caregiver/support person: Yes Lives independently: No Housing: Assisted Living Facility Marital status: / Current occupational status: retired and disabled Current gender identity: Female Physical Exam Const: COMMON NORMALS: no acute distress, patient oriented x3 and healthy appearing HENMT: COMMON NORMALS: normocephalic and atraumatic HEAD & SCALP: normocephalic and atraumatic Eye: COMMON NORMALS: conjunctivae normal CONJUNCTIVA: Yes conjunctivae normal Neck/C-Spine: COMMON NORMALS: full ROM and supple Chest: COMMONS NORMALS: normal inspection of the chest and normal palpation of entire chest wall Resp: COMMON NORMALS: normal respiratory effort, No retractions, No use of accessory muscles and clear to auscultation bilaterally AUSCULTATION: clear to auscultation bilaterally Cardio: COMMON NORMALS: regular rate, regular rhythm and No murmurs present (Cardio) RATE: regular rate RHYTHM: regular rhythm GI: COMMON NORMALS: Soft to palpation, non-tender and no masses INSPECTION: Yes normal to inspection PALPATION: Yes Soft to palpation Extremity: COMMON NORMALS: normal to inspection and full ROM Neuro: COMMON NORMALS: patient oriented x3, moves all extremities and no focal motor deficits Psych: COMMON NORMALS: mental status grossly normal, Normal thought process present and cooperative THOUGHT PROCESS: Normal thought process present Skin: COMMON NORMALS: no rashes or lesions noted and no wounds GENERAL SKIN EXAM: no rashes or lesions noted Course Vital Signs: Vital signs: Vital Signs Temperature 97.5 F L 07/03/22 16:17 Pulse Rate 94 07/03/22 18:45 Respiratory Rate 22 H 07/03/22 16:17 Blood Pressure 143/120 07/03/22 18:30 Pulse Oximetry 96 07/03/22 18:45 Oxygen Delivery Me thod Room Air 07/03/22 16:17 MDM - SOB/Dyspnea Medical Decision Making Patient presents with dyspnea she does have a history of CHF here she is in no distress able speak in full sentences she is 98% here on 2 L she wears 2 L at home BNP is mildly elevated give her dose of Lasix here she is to continue her diuretics at home she is to follow-up with PCP this week and return if worsening she has no signs of pneumonia she had no chest pain no signs of pulmonary embolism or aortic dissection. No signs of pneumonia. Medical Records I reviewed the patient's medical records. Lab Data I reviewed the patient's lab results. 07/03/22 17:25 07/03/22 17:25 Labs/Radiology: Radiology Impressions Chest X-Ray 07/03/22 17:03 IMPRESSION: 1. Accentuated cardiac silhouette size and vascularity. See discussion above. 2. No obvious acute consolidation. Suboptimal lung base assessment. Followup including lateral view may be obtained if clinically indicated. Laboratory Results WBC 10.8 10^3/uL (4.0-10.0) H 07/03/22 17: RBC 5.73 10^6/uL (4.1-5.3) H 07/03/22 17: Hgb 15.4 g/dL (11.5-15.3) H 07/03/22 17: Hct 51.9 % (37.0-47.0) H 07/03/22: MCV 90.6 fl (81-99) 07/03/22: MCH 26.9 pg (28.0-34.0) L 07/03/22 17: MCHC 29.7 g/dL (30.0-36.0) L 07/03/22: RDW 15.4 % (12.1-15.1) H 07/03/22 17: Plt Count 219 10^3/cmm (130-400) 07/03/22 17: MPV 11.1 fL (7.4-10.4) H 07/03/22 17: Neut % (Auto) 70.6 % 07/03/22 17: Lymph % (Auto) 16.6 % 07/03/22 17: [place] % (Auto) 7.1 % 07/03/22 17: Eos % (Auto) 4.9 % 07/03/22 17: Baso % (Auto) 0.4 % 07/03/22 17: Neut # (Auto) 7.61 10^3/uL (1.8-7.7) 07/03/22: Lymph # (Auto) 1.8 10^3/uL (0.8-4.8) 07/03/22:25 [place] # (Auto) 0.8 10^3/uL (0.2-0.9) 07/03/22: Eos # (Auto) 0.5 10^3/uL (0.0-0.8) 07/03/22: Baso # (Auto) 0.0 10^3/uL (0.0-0.1) 07/03/22: Nucleated RBC % (auto) 0 % 07/03/22: Nucleated RBCs # 0.0 /100WBC 07/03/22: PT 12.80 SECONDS (12.1-14.9) 07/03/22: INR 0.94 (0.8-1.2) 07/03/22: Specimen Type Arterial 07/03/22 17:58 Sample Site Radial, left 07/03/22:58 ABG pH 7.40 (7.35-7.45) 07/03/22 17:58 ABG pCO2 44.9 mmHg (35-45) 07/03/22 17:58 ABG pO2 58.6 mmHg (80.0-100.0) L 07/03/22 17:58 ABG HCO3 27.8 mmol/L (22-26) H 07/03/22 17:58 ABG Base Excess 2.3 mmol/L (-2.0-2.0) H 07/03/22 17:58 Miguel Test Pos 07/03/22 17:58 Hematocrit 48.3 % (37-47) H 07/03/22 17:58 Hgb O2 Saturation 84.9 % (95-100) L 07/03/22 17:58 Carboxyhemoglobin 2.4 %THgb (0.4-20.1) 07/03/22 17:58 Methemoglobin 0.5 % (0.4-1.5) 07/03/22 17:58 Total Hemoglobin 15.8 g/dL (12-16) 07/03/22 17:58 O2 Delivery Device Nc 07/03/22 17:58 O2 Liters/Min 3.0 % 07/03/22 17:58 FiO2 32.0 % 07/03/22 17:58 Pitching Coach ID rm 07/03/22 17:58 Sodium 141 mmol/L (136-145) 07/03/22 17:25 Potassium 4.6 mmol/L (3.5-5.1) 07/03/22 17:25 Chloride 102 mmol/L (98-107) 07/03/22 17:25 Carbon Dioxide 30 mmol/L (22-29) H 07/03/22 17:25 Anion Gap 13.6 (5-19) 07/03/22 17:25 BUN 18 mg/dL (8-23) 07/03/22 17:25 Creatinine 0.9 mg/dL (0.5-0.9) 07/03/22 17:25 GFR Calculation 62.1 mL/min (90-130) L 07/03/22 17:25 Glucose 119 mg/dL (65-115) H 07/03/22 17:25 Calculated Osmolality 295 mOsm/kg (285-295) 07/03/22 17:25 Calcium 10.0 mg/dL (8.5-10.5) 07/03/22 17:25 Total Bilirubin 0.4 mg/dL (0.15-1.2) 07/03/22 17:25 AST 20 U/L (0-32) 07/03/22 17:25 ALT 14 U/L (0-33) 07/03/22 17:25 Alkaline Phosphatase 106 U/L (35-105) H 07/03/22 17:25 NT-Pro-B Natriuret Pep 1315 pg/mL (0-125) H 07/03/22 17:25 Total Protein 7.9 g/dL (6.6-8.7) 07/03/22 17:25 Albumin 4.5 g/dL (3.5-5.2) 07/03/22 17:25 Globulin 3.4 g/dL (1.3-4.6) 07/03/22 17:25 Discharge Plan Discharge Patient Disposition: Home Clinical Impression: Congestive heart failure Condition: Stable Prescriptions: No Action rosuvastatin 40 mg tablet 40 mg PO DAILY@20 (DME) Diabetic Shoes See Rx Instructions .Route .MEDSUPPLY Qty: 1 0RF Rx Instructions: As directed ammonium lactate 12 % cream 1 applic topical DAILY Qty: 385 0RF albuterol sulfate 90 mcg/actuation HFA aerosol inhaler 1 puff INHALATION Q6H PRN (Reason: Shortness Of Breath) Qty: 8.5 3RF Cough Drops See Rx Instructions .ROUTE .COMPLEX Rx Instructions: may keep at bedside ondansetron 4 mg tablet,disintegrating 4 mg PO Q6H PRN (Reason: nausea and vomiting) Qty: 14 0RF naproxen [Naprosyn] 500 mg tablet 500 mg PO BID PRN (Reason: pain) Qty: 20 0RF Myrbetriq 25 mg tablet extended release 24 hr 25 mg PO DAILY@0700 promethazine-DM 6.25-15 mg/5 mL Syrup 5 ml PO Q6H PRN (Reason: Cough) Ozempic 0.25 mg or 0.5 mg(2 mg/1.5 mL) Pen Injector 0.5 mg SUBCUT Q7D Rx Instructions: on mondays hydroxyzine HCl 25 mg Tablet 25 mg PO Q8H PRN (Reason: Anxiety) fluoride (sodium) [SF 5000 Plus] 1.1 % Cream See Rx Instructions .ROUTE .COMPLEX Rx Instructions: brush on teeth bid with use of regular tooth paste do not eat or drink 30 mins after (use at 07:00 & 20:00) aspirin 81 mg tablet,delayed release (DR/EC) 81 mg PO DAILY@07 Acidophilus 175 mg PO DAILY@19 loperamide 2 mg Tablet 2 mg PO QID PRN (Reason: Diarrhea) pantoprazole 40 mg tablet,delayed release (DR/EC) 40 mg PO DAILY@07 insulin aspart U-100 [Novolog U-100 Insulin aspart] 100 unit/mL solution See Rx Instructions .ROUTE .COMPLEX Rx Instructions: PER SLIDING SCALE AC MEALS AND HS @ 05:30,11:00,16:00,20:00 150-200=0 units 201-250=2 units 251-300=4 units 301-350=6 units 351-400=8 units Debrox 6.5 % Drops See Rx Instructions .ROUTE .COMPLEX Rx Instructions: 5-10 GTTS EACH EAR MONTHLY. Januvia 100 mg Tablet 100 mg PO DAILY@0700 Flonase Sensimist 27.5 mcg/actuation [place],Suspension 1 spray INTRANASAL DAILY@0700 Daliresp 500 mcg tablet 500 mcg PO DAILY@0700 Trelegy Ellipta 100-62.5-25 mcg blister with device 1 inh inhalation DAILY@07 acetaminophen [Tylenol Extra Strength] 500 mg Tablet 1,000 mg PO Q4H MDD 8 tabs PRN (Reason: Pain) magnesium hydroxide [Milk of Magnesia] 400 mg/5 mL Suspension See Rx Instructions .ROUTE .COMPLEX Rx Instructions: 30ML PO ONCE DAILY PRN IF NO BM FOR 3 DAYS bisacodyl [Dulcolax (bisacodyl)] 10 mg Suppository 10 mg IN DAILY PRN (Reason: Constipation) Rx Instructions: IF NO BM FROM MOM, IF CAN'T TAKE PO & NO RSLTS OF M.O.M. Fleet Enema 19-7 gram/118 mL Enema 118 ml IN DAILY PRN (Reason: Constipation) Rx Instructions: IF NO RESUTLS FROM M.O.M. gabapentin 300 mg capsule 300 mg PO BID@0700,1999 bisacodyl [Dulcolax (bisacodyl)] 5 mg Tablet,Delayed Release (Dr/Ec) 10 mg PO DAILY PRN (Reason: Constipation) melatonin 5 mg Tablet 5 mg PO BEDTIME@2000 pioglitazone [Actos] 15 mg Tablet 7.5 mg PO DAILY@0700 venlafaxine 75 mg Capsule,Extended Release 24hr 75 mg PO DAILY@0700 Saline Nasal 0.65 % Aerosol,[place] See Rx Instructions .ROUTE .COMPLEX Rx Instructions: SQUEEZE INTO DRY NOSTRILS BID THEN FOLLOW WITH BACTROBAN. USE AT 0700 AND 1999 levetiracetam 500 mg tablet See Rx Instructions .ROUTE .COMPLEX Rx Instructions: 500mg po qam @07:00 and 1000mg po daily@19:00 tramadol 50 mg tablet 50 mg PO Q8H PRN (Reason: pain) Qty: 10 0RF Tresiba FlexTouch U-200 200 unit/mL (3 mL) insulin pen 10 unit SUBCUT BEDTIME zinc acetate 50 mg (zinc) Capsule 50 mg PO DAILY@07 bumetanide 0.5 mg tablet 0.5 mg PO DAILY@07 Vitamin D3 50 mcg (2,000 unit) Capsule 50 mcg PO DAILY@07 ipratropium-albuterol 0.5 mg-3 mg(2.5 mg base)/3 mL Solution For Nebulization 3 ml INHALATION Q4H PRN (Reason: Shortness Of Breath) Refresh Tears 0.5 % Drops 1 - 2 drp ophthalmic (eye) .EVERY 2 HOURS PRN (Reason: Dry Eye(S)) clotrimazole 1 % Cream See Rx Instructions .ROUTE .COMPLEX Rx Instructions: apply topically to scales in right foot lactulose 10 gram/15 mL solution 10 g PO DAILY PRN (Reason: constipation) Qty: 473 0RF Senna-S 8.6-50 mg tablet 1 tab-cap PO DAILY Qty: 30 0RF Discharge Orders: Discharge ED (Routine); Ordered 07/03/22 Ordered By: Devorah Agee Referrals: Tashi Acosta MD [Primary Care Provider] - 1-3 days Discharge Diet: Advance as tolerated Discharge Activity: Resume usual activity Patient Instructions: Heart Failure (ED) Coding Level of Care Code ED Bus And Rail Operator for Kanchan Abdi
--- NOTE | 2022-07-03 18:24 | ECG_ITS ---
[facility] Test Date: 2022-07-03 Pat Name: Yaquelin Loera Department: Room: Gender: Female Regulatory Law Specialist: : 1955 Requested By: Lg Oliveira Order Number: [id number] José MD: Eliezer Mills M.D. Measurements Intervals [place] Rate: 84 P: 47 FL: 171 QRS: 84 QRSD: 94 T: 59 QT: 396 QTc: 470 Interpretive Statements SINUS RHYTHM WITH FREQUENT VENTRICULAR PREMATURE COMPLEXES POSSIBLE LEFT ATRIAL ENLARGEMENT [-0.1mV P-WAVE IN V1/V2] ABNORMAL RHYTHM ECG Compared to ECG 02/25/2022 22:51:03 No significant changes Electronically Signed On 07-04-2022 14:50:22 CDT by Eliezer Mills M.D. [email or web address] general hospitalRoxro Pharmal[id number]
[2022-07-03 18:25] LABS: Alanine Aminotransferase 14 U/L (0-33); Albumin Level 4.5 g/dL (3.5-5.2); Alkaline Phosphatase 106 U/L (35-105); Anion Gap 13.6 (5-19); Aspartate Amino Transferase 20 U/L (0-32); Blood Urea Nitrogen 18 mg/dL (8-23); Carbon Dioxide 30 mmol/L (22-29); Chloride 102 mmol/L (98-107); Globulin 3.4 g/dL (1.3-4.6); Glomerular Filtration Rate 62.1 mL/min (90-130); Glucose 119 mg/dL (65-115); NT Pro B Type Natriuretic Pept 1315 pg/mL (0-125); Osmolality Calculated 295 mOsm/kg (285-295); Potassium 4.6 mmol/L (3.5-5.1); Sodium 141 mmol/L (136-145); Total Bilirubin 0.4 mg/dL (0.15-1.2); Total Protein 7.9 g/dL (6.6-8.7)
[2022-07-03 18:30] VITALS: BP 143/120; O2SAT 97
[2022-07-03 18:38] VITALS: O2SAT 95
[2022-07-03 18:40] VITALS: O2SAT 90
[2022-07-03 18:45] VITALS: PULSE 94; O2SAT 96
[2022-07-03 19:34] VITALS: BP 119/77; PULSE 91; RESP 20; O2SAT 97
== END 2022-07-03 19:35 | disposition home or self-care (01) ==
PROVIDERS: Emergency Provider Emergency Medicine; PCP Family Medicine
DX: I11.0 Hypertensive heart disease with heart failure (principal); I50.9 Heart failure, unspecified; Z79.82 Long term (current) use of aspirin; Z79.4 Long term (current) use of insulin; F17.210 Nicotine dependence, cigarettes, uncomplicated; J44.9 Chronic obstructive pulmonary disease, unspecified; E78.5 Hyperlipidemia, unspecified; E11.9 Type 2 diabetes mellitus without complications
CPT/HCPCS: 36415; 36600; 71045; 80053; 82805; 83880; 85025; 85610; 93005; 96374; 99285; J1940

== ENCOUNTER 2022-07-07 14:48 | Emergency (ER) | payer MEDICARE, MEDICAID, SELFPAY ==
[2022-07-07 14:50] VITALS: BP 130/86; PULSE 91; RESP 18; TEMP 36.6; O2SAT 87
--- NOTE | 2022-07-07 15:00 | W.ED.SOB ---
HPI - SOB/Dyspnea General: Chief Complaint: Shortness of Breath/Dyspnea Stated Complaint: sob Time Seen by Provider: 07/07/22 15:00 Source: patient Mode of arrival: ambulatory History of Present Illness: HPI Narrative: 67-year-old female presents to the emergency room complaining difficulty breathing. She was here a few days ago and seen given Lasix thought to be fluid overloaded has been using her same little Lasix at home. She normally is on 2 L per nasal cannula at home and is currently satting in the low 90s on the same amount. She denies any chest pain she generally says she just does not feel well she has not had a productive cough no fever sweats or chills. MD elicited complaint: shortness of breath and cough Pertinent past history: COPD Associated symptoms: Deny abdominal pain, chest pain, fever(s), nausea, orthopnea or vomiting Review of Systems Const: Denies: fever(s), chills, body aches, change in appetite, fatigue or malaise ENMT: Denies: throat pain, ear or mastoid pain, nasal discharge or nasal congestion Card: Denies: chest pain, edema, dyspnea on exertion or orthopnea Resp: Reports: dyspnea, non-productive cough and wheezing; Denies: productive cough GI: Denies: abdominal pain, nausea, vomiting, hematemesis, coffee ground emesis, diarrhea, constipation, bloating, hematochezia or melena : Denies: flank pain, difficulty voiding, dysuria, urinary frequency or urinary urgency Skin/Breast: Denies: rash or pruritus PFS ED PFSH: Medical History Acute on chronic diastolic (congestive) heart failure Benign essential hypertension with target blood pressure below 140/90 Chronic respiratory failure with hypoxia and hypercapnia COPD (chronic obstructive pulmonary disease) Depression Diastolic congestive heart failure Hyperlipidemia Hypertension Moderate to severe mitral regurgitation Nonischemic cardiomyopathy Obesity Obesity hypoventilation syndrome Obstructive sleep apnea Pulmonary hypertension Restrictive lung disease Seizure disorder Sleep apnea Small bowel obstruction T12 vertebral fracture Tricuspid regurgitation Type 2 diabetes mellitus Surgical History H/O mitral valve replacement History of Ulnar nerve compression Family History Brother CAD (coronary artery disease) Sister CAD (coronary artery disease) Grandmother Diabetes Mother Stroke Denies family history of Clotting disorder Dementia Chronic kidney disease (CKD) Suicide Anesthesia complication Bleeding disorder Lung disease Cancer Social History Smoking and tobacco status: current every day smoker cigarettes Packs smoked per day: 0.25 Years cigarettes smoked: 33 [ Other cigarette details: Hx of 1PPD x 30 Years, started 1991] Second hand smoke exposure: Yes Smoking risk assessment/counseling performed?: Yes Alcohol intake: never Counseling given: No Substance/Drug Use: never Counseling given: No Caregiver/support person: Yes Lives independently: No Housing: Assisted Living Facility Marital status: / Current occupational status: retired and disabled Do you think of yourself as: Straight/Heterosexual Current gender identity: Female Physical Exam Const: GENERAL APPEARANCE: cooperative and comfortable ORIENTATION/CONSCIOUSNESS: Yes awake, Yes oriented to person, Yes oriented to place and Yes oriented to time HENMT: COMMON NORMALS: normocephalic, atraumatic and hearing grossly normal bilaterally HEAD & SCALP: normocephalic and atraumatic Resp: COMMON NORMALS: normal respiratory effort, No retractions and No use of accessory muscles AUSCULTATION: rales and wheezes Cardio: COMMON NORMALS: regular rate, regular rhythm and No murmurs present (Cardio) RATE: regular rate RHYTHM: regular rhythm GI: COMMON NORMALS: Soft to palpation and No hepatosplenomegaly present AUSCULTATION: Yes normoactive bowel sounds PALPATION: Yes Soft to palpation, No Tenderness to palpation present (GI), No Guarding due to palpation present (GI) and Yes No hepatosplenomegaly present : COMMON NORMALS: Yes no CVA tenderness BLADDER/KIDNEY EXAM: Yes no CVA tenderness Back/Pelvis: COMMON NORMALS: no CVA tenderness Extremity: COMMON NORMALS: normal to inspection, capillary refill normal and no calf tenderness GENERAL: Yes edema Neuro: SENSORIUM/ORIENTATION: Yes oriented to person, Yes oriented to place and Yes oriented to time Skin: COMMON NORMALS: no rashes or lesions noted GENERAL SKIN EXAM: no rashes or lesions noted Course Vital Signs: Vital signs: Vital Signs Temperature 97.9 F 07/07/22 14:50 Pulse Rate 84 07/07/22 18:02 Respiratory Rate 16 07/07/22 15:53 Blood Pressure 112/85 07/07/22 18:02 Pulse Oximetry 94 07/07/22 18:02 Oxygen Delivery Me thod Nasal Cannula 07/07/22 15:53 Oxygen Flow Rate 2 07/07/22 15:53 MDM - SOB/Dyspnea Medical Decision Making Labs imaging and EKG reviewed. No acute EKG changes. Troponins trending negative. BNP mildly elevated increased swelling in her legs will increase her Bumex for the next few days follow-up with your primary care doctor in 3 to 4 days return if has worsening signs or symptoms. Maintaining oxygen sats on her usual 2 L. Continue albuterol as needed. Medical Records I reviewed the patient's medical records. Lab Data I reviewed the patient's lab results. 07/07/22 15:13 07/07/22 15:13 Labs/Radiology: Radiology Impressions Chest X-Ray 07/07/22 15:01 IMPRESSION: There are no acute concerning abnormalities. Laboratory Results WBC 9.2 10^3/uL (4.0-10.0) 07/07/22 15:13 RBC 5.37 10^6/uL (4.1-5.3) H 07/07/22 15:13 Hgb 14.7 g/dL (11.5-15.3) 07/07/22 15:13 Hct 48.9 % (37.0-47.0) H 07/07/22 15:13 MCV 91.1 fl (81-99) 07/07/22 15:13 MCH 27.4 pg (28.0-34.0) L 07/07/22 15:13 MCHC 30.1 g/dL (30.0-36.0) 07/07/22 15:13 RDW 14.9 % (12.1-15.1) 07/07/22 15:13 Plt Count 203 10^3/cmm (130-400) 07/07/22 15:13 MPV 11.5 fL (7.4-10.4) H 07/07/22 15:13 Neut % (Auto) 68.8 % 07/07/22 15:13 Lymph % (Auto) 17.5 % 07/07/22 15:13 [facility] % (Auto) 7.7 % 07/07/22 15:13 Eos % (Auto) 5.4 % 07/07/22 15:13 Baso % (Auto) 0.4 % 07/07/22 15:13 Neut # (Auto) 6.33 10^3/uL (1.8-7.7) 07/07/22 15:13 Lymph # (Auto) 1.6 10^3/uL (0.8-4.8) 07/07/22 15:13 [facility] # (Auto) 0.7 10^3/uL (0.2-0.9) 07/07/22 15:13 Eos # (Auto) 0.5 10^3/uL (0.0-0.8) 07/07/22 15:13 Baso # (Auto) 0.0 10^3/uL (0.0-0.1) 07/07/22 15:13 Nucleated RBC % (auto) 0 % 07/07/22 15:13 Nucleated RBCs # 0.0 /100WBC 07/07/22 15:13 Sodium 142 mmol/L (136-145) 07/07/22 15:13 Potassium 4.5 mmol/L (3.5-5.1) 07/07/22 15:13 Chloride 102 mmol/L (98-107) 07/07/22 15:13 Carbon Dioxide 28 mmol/L (22-29) 07/07/22 15:13 Anion Gap 16.5 (5-19) 07/07/22 15:13 BUN 22 mg/dL (8-23) 07/07/22 15:13 Creatinine 1.0 mg/dL (0.5-0.9) H 07/07/22 15:13 GFR Calculation 55.0 mL/min (90-130) L 07/07/22 15:13 Glucose 171 mg/dL (65-115) H 07/07/22 15:13 Calculated Osmolality 301 mOsm/kg (285-295) H 07/07/22 15:13 Calcium 9.4 mg/dL (8.5-10.5) 07/07/22 15:13 Total Bilirubin 0.3 mg/dL (0.15-1.2) 07/07/22 15:13 AST 18 U/L (0-32) 07/07/22 15:13 ALT 12 U/L (0-33) 07/07/22 15:13 Alkaline Phosphatase 100 U/L (35-105) 07/07/22 15:13 Troponin T Baseline 18 ng/L (0-10) H 07/07/22 15:13 Troponin T 120 Minute 17.07 ng/L (0-10) H 07/07/22 17:53 Delta Troponin T -0.93 ABS# (0-10) L 07/07/22 17:53 NT-Pro-B Natriuret Pep 1508 pg/mL (0-125) H 07/07/22 15:13 Total Protein 7.3 g/dL (6.6-8.7) 07/07/22 15:13 Albumin 4.2 g/dL (3.5-5.2) 07/07/22 15:13 Globulin 3.1 g/dL (1.3-4.6) 07/07/22 15:13 Urine Color Yellow (Yellow) 07/07/22 15:40 Urine Appearance Sl hazy (CLEAR) A 07/07/22 15:40 Urine pH 5 (5-7) 07/07/22 15:40 Ur Specific [place] 1.020 (1.005-1.030) 07/07/22 15:40 Urine Protein Trace (Negative) 07/07/22 15:40 Urine Glucose (UA) 4+ (Normal) H 07/07/22 15:40 Urine Ketones Negative (Negative) 07/07/22 15:40 Urine Blood 2+ (Negative) H 07/07/22 15:40 Urine Nitrate Negative (Negative) 07/07/22 15:40 Urine Bilirubin Neg (Negative) 07/07/22 15:40 Urine Urobilinogen Neg mg/dL (Negative) 07/07/22 15:40 Ur Leukocyte Esterase 1+ (Negative) H 07/07/22 15:40 Urine RBC 5-10 /hpf (0-2) H 07/07/22 15:40 Urine WBC 25-40 /hpf (0-5) H 07/07/22 15:40 Ur Squamous Epith Cells 0-4 /hpf (0-5) H 07/07/22 15:40 Ur Renal Epithelial Cell 0-4 /hpf 07/07/22 15:40 Amorphous Sediment Not Reportable 07/07/22 15:40 Urine Bacteria Trace /hpf (NONE) 07/07/22 15:40 Urine Mucus Trace /hpf 07/07/22 15:40 Discharge Plan Discharge Patient Disposition: Home Clinical Impression: Congestive heart failure, Type 2 diabetes mellitus Condition: Stable Prescriptions: No Action rosuvastatin 40 mg tablet 40 mg PO DAILY@20 (DME) Diabetic Shoes See Rx Instructions .Route .MEDSUPPLY Qty: 1 0RF Rx Instructions: As directed albuterol sulfate 90 mcg/actuation HFA aerosol inhaler 1 puff INHALATION Q6H PRN (Reason: Shortness Of Breath) Qty: 8.5 3RF Cough Drops See Rx Instructions .ROUTE .COMPLEX Rx Instructions: may keep at bedside ondansetron 4 mg tablet,disintegrating 4 mg PO Q6H PRN (Reason: nausea and vomiting) Qty: 14 0RF Myrbetriq 25 mg tablet extended release 24 hr 25 mg PO DAILY@0700 promethazine-DM 6.25-15 mg/5 mL Syrup 5 ml PO Q6H PRN (Reason: Cough) Ozempic 0.25 mg or 0.5 mg(2 mg/1.5 mL) Pen Injector 0.5 mg SUBCUT Q7D Rx Instructions: on mondays hydroxyzine HCl 25 mg Tablet 25 mg PO Q8H PRN (Reason: Anxiety) fluoride (sodium) [SF 5000 Plus] 1.1 % Cream See Rx Instructions .ROUTE .COMPLEX Rx Instructions: brush on teeth bid with use of regular tooth paste do not eat or drink 30 mins after (use at 07:00 & 20:00) aspirin 81 mg tablet,delayed release (DR/EC) 81 mg PO DAILY@07 Acidophilus 175 mg PO DAILY@19 loperamide 2 mg Tablet 2 mg PO QID PRN (Reason: Diarrhea) pantoprazole 40 mg tablet,delayed release (DR/EC) 40 mg PO DAILY@07 insulin aspart U-100 [Novolog U-100 Insulin aspart] 100 unit/mL solution See Rx Instructions .ROUTE .COMPLEX Rx Instructions: PER SLIDING SCALE- CHECK BS AC MEALS AND HS BEFORE SLIDING SCALE @ 05:30,11:00,16:00,20:00 150-200=0 units 201-250=2 units 251-300=4 units 301-350=6 units 351-400=8 units Debrox 6.5 % Drops See Rx Instructions .ROUTE .COMPLEX Rx Instructions: 5-10 GTTS EACH EAR MONTHLY. Flonase Sensimist 27.5 mcg/actuation [place],Suspension 1 spray INTRANASAL DAILY@0700 roflumilast [Daliresp] 500 mcg tablet 500 mcg PO DAILY@0700 Trelegy Ellipta 100-62.5-25 mcg blister with device 1 inh inhalation DAILY@07 acetaminophen [Tylenol Extra Strength] 500 mg Tablet 1,000 mg PO Q4H MDD 8 tabs PRN (Reason: Pain) magnesium hydroxide [Milk of Magnesia] 400 mg/5 mL Suspension See Rx Instructions .ROUTE .COMPLEX Rx Instructions: 30ML PO ONCE DAILY PRN IF NO BM FOR 3 DAYS bisacodyl [Dulcolax (bisacodyl)] 10 mg Suppository 10 mg MS DAILY PRN (Reason: Constipation) Rx Instructions: IF NO BM FROM MOM, IF CAN'T TAKE PO & NO RESULTS OF M.O.M. Fleet Enema 19-7 gram/118 mL Enema 118 ml MS DAILY PRN (Reason: Constipation) Rx Instructions: IF NO RESUTLS FROM M.O.M. gabapentin 300 mg capsule 300 mg PO BID@0700,2000 bisacodyl [Dulcolax (bisacodyl)] 5 mg Tablet,Delayed Release (Dr/Ec) 10 mg PO DAILY PRN (Reason: Constipation) melatonin 5 mg Tablet 5 mg PO BEDTIME@2000 venlafaxine 75 mg Capsule,Extended Release 24hr 75 mg PO DAILY@0700 Saline Nasal 0.65 % Aerosol,[place] See Rx Instructions .ROUTE .COMPLEX Rx Instructions: SQUEEZE INTO DRY NOSTRILS BID THEN FOLLOW WITH BACTROBAN. USE AT 0700 AND 2000 levetiracetam 500 mg tablet See Rx Instructions .ROUTE .COMPLEX Rx Instructions: 500mg po qam @07:00 and 1000mg po daily@19:00 tramadol 50 mg tablet 50 mg PO Q8H PRN (Reason: pain) Qty: 10 0RF zinc acetate 50 mg (zinc) Capsule 50 mg PO DAILY@07 bumetanide 0.5 mg tablet 0.5 mg PO DAILY@07 ipratropium-albuterol 0.5 mg-3 mg(2.5 mg base)/3 mL Solution For Nebulization 3 ml INHALATION Q4H PRN (Reason: Shortness Of Breath) carboxymethylcellulose sodium [Refresh Tears] 0.5 % Drops 1 - 2 drp ophthalmic (eye) .EVERY 2 HOURS PRN (Reason: Dry Eye(S)) clotrimazole 1 % Cream See Rx Instructions .ROUTE .COMPLEX Rx Instructions: apply topically to scales in right foot lactulose 10 gram/15 mL solution 10 g PO DAILY PRN (Reason: constipation) Qty: 473 0RF cholecalciferol (vitamin D3) [Vitamin D3] 50 mcg (2,000 unit) Capsule 50 mcg PO DAILY@07 Jardiance 25 mg Tablet 25 mg PO DAILY@07 sennosides-docusate sodium [Senna-S] 8.6-50 mg tablet 1 tab-cap PO DAILY@07 naproxen sodium 220 mg Tablet 220 mg PO BID PRN (Reason: Pain) oxycodone 5 mg tablet 5 mg PO Q12H PRN (Reason: Pain) terbinafine HCl 1 % Cream 1 applic TOPICAL BID@07,19 triamcinolone acetonide 0.1 % ointment 1 applic TOPICAL BID@07,20 lidocaine 5 % Adhesive Patch,Medicated 1 patch TOPICAL DAILY PRN (Reason: Pain) Rx Instructions: leave on most painful area for up to 12 hrs then off for 12 hours PreserVision AREDS 14,320-226-200 [id number] capsule 1 cap PO BID@07,19 ammonium lactate 12 % cream 1 applic topical DAILY@20 Tresiba FlexTouch U-100 100 unit/mL (3 mL) Insulin Pen 10 unit SUBCUT BEDTIME Discharge Orders: Discharge ED (Routine); Ordered 07/07/22 Ordered By: Eligio Yi Referrals: Tashi Acosta MD [Primary Care Provider] - Patient Instructions: Opioid Safety, Pain Management Activity Restrictions/Additional Instructions: Increase your Bumex to 1 mg daily for the next 4 days. Follow-up with your doctor on 07/11 or 07/12 to have repeat lab work and reevaluation. Return to the ER if you have further problems. Coding Level of Care Code ED Bridge Crew Member for Kanchan Abdi
--- NOTE | 2022-07-07 15:01 | XRR_ITS ---
PROCEDURE INFORMATION: Exam: XR Chest Exam date and time: 07/07/2022 3:51 PM Age: 67 years old Clinical indication: Cough and dyspnea; Additional info: Dyspnea/cough TECHNIQUE: Imaging protocol: Radiologic exam of the chest. Views: 1 view. COMPARISON: CR (CHEST, ) 07/03/2022 5:22 PM FINDINGS: Lungs: Unremarkable. No consolidation. Pleural spaces: Unremarkable. No pleural effusion. No pneumothorax. Heart/Mediastinum: Cardiomegaly is identified. Bones/joints: Unremarkable. XR/XR chest 1V portable [id number] IMPRESSION: There are no acute concerning abnormalities.
[2022-07-07 15:25] LABS: Basophils % 0.4 %; Eosinophils # 0.5 10^3/uL (0.0-0.8); Eosinophils % 5.4 %; Hematocrit 48.9 % (37.0-47.0); Hemoglobin 14.7 g/dL (11.5-15.3); Lymphocytes # 1.6 10^3/uL (0.8-4.8); Lymphocytes % 17.5 %; Mean Corpuscular HGB Conc 30.1 g/dL (30.0-36.0); Mean Corpuscular Hemoglobin 27.4 pg (28.0-34.0); Mean Corpuscular Volume 91.1 fl (81-99); Mean Platelet Volume 11.5 fL (7.4-10.4); Monocytes # 0.7 10^3/uL (0.2-0.9); Monocytes % 7.7 %; Neutrophils # 6.33 10^3/uL (1.8-7.7); Neutrophils % 68.8 %; Nucleated Red Blood Cells % 0 %; Platelet Count 203 10^3/cmm (130-400); Red Blood Count 5.37 10^6/uL (4.1-5.3); Red Cell Distribution Width 14.9 % (12.1-15.1); White Blood Count 9.2 10^3/uL (4.0-10.0)
[2022-07-07 15:43] LABS: Troponin(5th) Baseline 18 ng/L (0-10)
[2022-07-07 15:51] LABS: Alanine Aminotransferase 12 U/L (0-33); Albumin Level 4.2 g/dL (3.5-5.2); Alkaline Phosphatase 100 U/L (35-105); Anion Gap 16.5 (5-19); Aspartate Amino Transferase 18 U/L (0-32); Blood Urea Nitrogen 22 mg/dL (8-23); Calcium 9.4 mg/dL (8.5-10.5); Carbon Dioxide 28 mmol/L (22-29); Chloride 102 mmol/L (98-107); Globulin 3.1 g/dL (1.3-4.6); Glucose 171 mg/dL (65-115); NT Pro B Type Natriuretic Pept 1508 pg/mL (0-125); Osmolality Calculated 301 mOsm/kg (285-295); Potassium 4.5 mmol/L (3.5-5.1); Sodium 142 mmol/L (136-145); Total Bilirubin 0.3 mg/dL (0.15-1.2); Total Protein 7.3 g/dL (6.6-8.7)
[2022-07-07 15:53] VITALS: PULSE 87; RESP 16; O2SAT 94
[2022-07-07] MEDS: ipratropium-albuterol 3 mL Neb INHALATION (15:54)
--- NOTE | 2022-07-07 16:12 | ECG_ITS ---
[facility] Test Date: 2022-07-07 Pat Name: Yaquelin Loera Department: Room: Gender: Female Solution Director: : 1955 Requested By: Eligio Andrews Order Number: [id number] José MD: Jay Adler M.D. Measurements Intervals [place] Rate: 85 P: 43 [place]: 159 QRS: 63 QRSD: 93 T: 58 QT: 405 QTc: 484 Interpretive Statements SINUS RHYTHM WITH OCCASIONAL VENTRICULAR PREMATURE COMPLEXES POSSIBLE LEFT ATRIAL ENLARGEMENT [-0.1mV P-WAVE IN V1/V2] Compared to ECG 07/03/2022 18:24:54 No significant changes Electronically Signed On 07-07-2022 22:08:07 CDT by Jay Adler M.D. [email or web address] [email or web address] regional medical [email or web address] health [facility] campus.[employer]/store/[id number]
--- NOTE | 2022-07-07 16:13 | PC.PHAR ---
called [facility] at 4:00 for pts mar
[2022-07-07 16:32] LABS: Bilirubin Urine Neg (Negative); Blood Urine 2+ (Negative); Glucose Urine UA 4+ (Normal); Ketones Urine Negative (Negative); Nitrate Urine Negative (Negative); Protein Urine Trace (Negative); Urine Appearance SL Hazy (CLEAR); Urine Color Yellow (Yellow); Urobilinogen Urine Neg (Negative); pH Urine 5 (5-7)
[2022-07-07 16:33] LABS: Add Urine Microscopic? YES; Leukocyte Esterase Urine 1+ (Negative)
[2022-07-07 16:39] LABS: Squamous Epithelial Cell Urine 0-4 /hpf (0-5); WBC Urine 25-40 /hpf (0-5)
[2022-07-07 16:40] LABS: Bacteria Urine TRACE /hpf; Mucus Urine TRACE /hpf; Renal Epithelial Cells Urine 0-4 /hpf
[2022-07-07 16:43] LABS: Add Urine Culture? Yes
[2022-07-07 16:53] VITALS: BP 112/70; PULSE 90; O2SAT 95
--- NOTE | 2022-07-07 17:01 | ECG_ITS ---
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 Measurements Intervals [place] Rate: 85 P: 46 [place]: 179 QRS: 72 QRSD: 91 T: 58 QT: 388 QTc: 463 Interpretive Statements SINUS RHYTHM WITH OCCASIONAL VENTRICULAR PREMATURE COMPLEXES POSSIBLE LEFT ATRIAL ENLARGEMENT [-0.1mV P-WAVE IN V1/V2] Compared to ECG 07/07/2022 16:12:35 No significant changes Electronically Signed On 07-08-2022 10:06:42 CDT by Beau Rm M.D. [id number]
[2022-07-07 18:02] VITALS: BP 112/85; PULSE 84; O2SAT 94
[2022-07-07 19:14] LABS: Troponin 5 2HR 17.07 ng/L (0-10)
[2022-07-07 19:16] LABS: Troponin 5 2HR Delta -0.93 ABS# (0-10)
== END 2022-07-07 18:04 | disposition home or self-care (01) ==
PROVIDERS: Emergency Provider Family Medicine; PCP Family Medicine
DX: I11.0 Hypertensive heart disease with heart failure (principal); I50.9 Heart failure, unspecified; E11.9 Type 2 diabetes mellitus without complications; Z79.82 Long term (current) use of aspirin; Z79.4 Long term (current) use of insulin; F17.210 Nicotine dependence, cigarettes, uncomplicated; J44.9 Chronic obstructive pulmonary disease, unspecified; E78.5 Hyperlipidemia, unspecified
CPT/HCPCS: 36415; 71045; 80053; 81001; 83880; 84484; 85025; 87086; 93005; 94640; 99285

== ENCOUNTER 2022-07-09 12:50 | Inpatient (IN) | payer MEDICARE, MEDICAID, SELFPAY ==
[2022-07-09] VITALS (8 sets, daily range): BP systolic 101–158; BP diastolic 65–103; PULSE 81–95; RESP 16–26; TEMP 36.4–36.6; O2SAT 91–95; BMI 43.9
--- NOTE | 2022-07-09 13:21 | ED_ITS ---
HPI - SOB/Dyspnea General: Chief Complaint: Shortness of Breath/Dyspnea Stated Complaint: SOB Time Seen by Provider: 07/09/22 13:15 History of Present Illness: HPI Narrative: Patient presents to the ER by EMS with complaints of respiratory distress. Patient was smoking this morning in her room when she started wheezing and her oxygen was in the 80s. EMS was called they gave her albuterol treatment, 125 mg Solu-Medrol, and on the way to the ER they gave her an additional DuoNeb treatment. This makes the patient's third visit to the ER in approximately 6 days. The previous times patient was worked up given an additional dose of Lasix IV and discharged home. MD elicited complaint: shortness of breath Pertinent past history: COPD Onset (ago): day(s) Context: other (Patient still smokes) Timing: constant Severity: similar to previous episodes Exacerbating factors: smoke Relieving factors: oxygen, rest, bronchodilators and medication Known history of: COPD Associated symptoms: Deny abdominal pain, chest pain, fever(s), nausea, palpitations or vomiting Treatment prior to arrival: oxygen, bronchodilator and other (Solu-Medrol) Review of Systems General: Reports: 10 or more systems reviewed and unremarkable except in HPI and below Const: Denies: fever(s) or chills Eyes: Denies: change in vision or photophobia ENMT: Denies: throat pain or odynophagia Card: Denies: chest pain, palpitations or irregular heart rhythm Resp: Reports: dyspnea GI: Denies: abdominal pain, nausea, vomiting or diarrhea : Denies: flank pain, difficulty voiding or dysuria Musc: Denies: neck pain or back pain [facility] ED PFSH: Medical History Acute on chronic diastolic (congestive) heart failure Benign essential hypertension with target blood pressure below 140/90 Chronic respiratory failure with hypoxia and hypercapnia COPD (chronic obstructive pulmonary disease) Depression Diastolic congestive heart failure Hyperlipidemia Hypertension Moderate to severe mitral regurgitation Nonischemic cardiomyopathy Obesity Obesity hypoventilation syndrome Obstructive sleep apnea Pulmonary hypertension Restrictive lung disease Seizure disorder Sleep apnea Small bowel obstruction T12 vertebral fracture Tricuspid regurgitation Type 2 diabetes mellitus Surgical History H/O mitral valve replacement History of Ulnar nerve compression Family History Brother CAD (coronary artery disease) Sister CAD (coronary artery disease) Grandmother Diabetes Mother Stroke Denies family history of Clotting disorder Dementia Chronic kidney disease (CKD) Suicide Anesthesia complication Bleeding disorder Lung disease Cancer Social History Smoking and tobacco status: current every day smoker cigarettes Packs smoked per day: 0.25 Years cigarettes smoked: 33 [ Other cigarette details: Hx of 1PPD x 30 Years, started 1991] Second hand smoke exposure: Yes Smoking risk assessment/counseling performed?: Yes Alcohol intake: never Counseling given: No Substance/Drug Use: never Counseling given: No Caregiver/support person: Yes Lives independently: No Housing: Assisted Living Facility Marital status: / Current occupational status: retired and disabled Do you think of yourself as: Straight/Heterosexual Current gender identity: Female Physical Exam Const: COMMON NORMALS: no acute distress, average body habitus, patient oriented x3, no limitations, healthy appearing, alert and well nourished HENMT: COMMON NORMALS: normocephalic, atraumatic, hearing grossly normal bilaterally, external ears normal, Normal external nose present and moist oral mucous membranes HEAD & SCALP: normocephalic and atraumatic NOSE: Normal external nose present EXTERNAL EAR: Yes external ears normal Eye: COMMON NORMALS: Equal, round and reactive pupils present, EOMs intact bilaterally, conjunctivae normal and no scleral icterus CONJUNCTIVA: Yes conjunctivae normal PUPIL: Yes Equal, round and reactive pupils present Neck/C-Spine: COMMON NORMALS: full ROM, no lymphadenopathy, supple, no meningeal signs, no JVD and Thyroid normal THYROID: Thyroid normal Chest: COMMONS NORMALS: normal inspection of the chest and normal palpation of entire chest wall Resp: OTHER: Decreased breath sounds bilateral Cardio: COMMON NORMALS: no JVD, regular rate, regular rhythm, S1 normal heart sound present and S2 normal heart sound present RATE: regular rate RHYTHM: regular rhythm HEART SOUNDS: S1 normal heart sound present and S2 normal hea rt sound present GI: COMMON NORMALS: Normal to inspection, nondistended, normoactive bowel sounds present, Soft to palpation, non-tender, No hepatosplenomegaly present and no masses PALPATION: Yes Soft to palpation and Yes No hepatosplenomegaly present Neuro: COMMON NORMALS: patient oriented x3 SENSORIUM/ORIENTATION: Yes alert MENINGEAL SIGNS: Yes no meningeal signs Course Vital Signs: Vital signs: Vital Signs Temperature 97.8 F 07/09/22 12:54 Pulse Rate 95 07/09/22 12:54 Respiratory Rate 26 H 07/09/22 12:54 Blood Pressure 131/103 07/09/22 12:54 Pulse Oximetry 95 07/09/22 12:54 Oxygen Delivery Me thod Room Air 07/09/22 12:54 MDM - SOB/Dyspnea Medical Decision Making Patient presents to the ER with complaints of worsening breathing due to her COPD, this is the third time in approximately 6 days. Prior times patient was evaluated given Lasix and sent home. Patient says she is getting worse. Lab work was reviewed this time with the only changes is a slight increase in her BNP to approximately 1600 and an increase in her white count approximately 14.6. Patient was given additional dose of 40 mg IV Lasix in the ER. Dr. Snyder was consulted who agreed to admit the person for inpatient treatment. Lab Data 07/09/22 12:33 07/09/22 12:33 Labs/Radiology: Radiology Impressions Chest X-Ray 07/09/22 13:22 IMPRESSION: No acute findings. Laboratory Results WBC 14.6 10^3/uL (4.0-10.0) H 07/09/22 12:33 RBC 6.00 10^6/uL (4.1-5.3) H 07/09/22 12:33 Hgb 16.2 g/dL (11.5-15.3) H 07/09/22 12:33 Hct 53.4 % (37.0-47.0) H 07/09/22 12:33 MCV 89.0 fl (81-99) 07/09/22 12:33 MCH 27.0 pg (28.0-34.0) L 07/09/22 12:33 MCHC 30.3 g/dL (30.0-36.0) 07/09/22 12:33 RDW 15.0 % (12.1-15.1) 07/09/22 12:33 Plt Count 221 10^3/cmm (130-400) 07/09/22 12:33 MPV 12.1 fL (7.4-10.4) H 07/09/22 12:33 Neut % (Auto) 81.7 % 07/09/22 12:33 Lymph % (Auto) 8.1 % 07/09/22 12:33 [place] % (Auto) 7.4 % 07/09/22 12:33 Eos % (Auto) 2.1 % 07/09/22 12:33 Baso % (Auto) 0.3 % 07/09/22 12:33 Neut # (Auto) 11.88 10^3/uL (1.8-7.7) H 07/09/22 12:33 Lymph # (Auto) 1.2 10^3/uL (0.8-4.8) 07/09/22 12:33 [place] # (Auto) 1.1 10^3/uL (0.2-0.9) H 07/09/22 12:33 Eos # (Auto) 0.3 10^3/uL (0.0-0.8) 07/09/22 12:33 Baso # (Auto) 0.1 10^3/uL (0.0-0.1) 07/09/22 12:33 Nucleated RBC % (auto) 0 % 07/09/22 12:33 Nucleated RBCs # 0.0 /100WBC 07/09/22 12:33 Sodium 130 mmol/L (136-145) L 07/09/22 12:33 Potassium 3.8 mmol/L (3.5-5.1) 07/09/22 12:33 Chloride 87 mmol/L (98-107) L 07/09/22 12:33 Carbon Dioxide 29 mmol/L (22-29) 07/09/22 12:33 Anion Gap 17.8 (5-19) 07/09/22 12:33 BUN 18 mg/dL (8-23) 07/09/22 12:33 Creatinine 0.9 mg/dL (0.5-0.9) 07/09/22 12:33 GFR Calculation 62.1 mL/min (90-130) L 07/09/22 12:33 Glucose 204 mg/dL (65-115) H 07/09/22 12:33 Calculated Osmolality 278 mOsm/kg (285-295) L 07/09/22 12:33 Calcium 9.6 mg/dL (8.5-10.5) 07/09/22 12:33 Total Bilirubin 0.7 mg/dL (0.15-1.2) 07/09/22 12:33 AST 22 U/L (0-32) 07/09/22 12:33 ALT 15 U/L (0-33) 07/09/22 12:33 Alkaline Phosphatase 114 U/L (35-105) H 07/09/22 12:33 NT-Pro-B Natriuret Pep 1659 pg/mL (0-125) H 07/09/22 12:33 Total Protein 8.4 g/dL (6.6-8.7) 07/09/22 12:33 Albumin 4.7 g/dL (3.5-5.2) 07/09/22 12:33 Globulin 3.7 g/dL (1.3-4.6) 07/09/22 12:33 Discharge Plan Discharge Patient Disposition: Admitted As Inpatient Clinical Impression: Acute exacerbation of chronic obstructive airways disease Condition: Stable Prescriptions: No Action rosuvastatin 40 mg tablet 40 mg PO DAILY@20 (DME) Diabetic Shoes See Rx Instructions .Route .MEDSUPPLY Qty: 1 0RF Rx Instructions: As directed albuterol sulfate 90 mcg/actuation HFA aerosol inhaler 1 puff INHALATION Q6H PRN (Reason: Shortness Of Breath) Qty: 8.5 3RF Cough Drops See Rx Instructions .ROUTE .COMPLEX Rx Instructions: may keep at bedside ondansetron 4 mg tablet,disintegrating 4 mg PO Q6H PRN (Reason: nausea and vomiting) Qty: 14 0RF Myrbetriq 25 mg tablet extended release 24 hr 25 mg PO DAILY@0700 promethazine-DM 6.25-15 mg/5 mL Syrup 5 ml PO Q6H PRN (Reason: Cough) Ozempic 0.25 mg or 0.5 mg(2 mg/1.5 mL) Pen Injector 0.5 mg SUBCUT Q7D Rx Instructions: on mondays hydroxyzine HCl 25 mg Tablet 25 mg PO Q8H PRN (Reason: Anxiety) fluoride (sodium) [SF 5000 Plus] 1.1 % Cream See Rx Instructions .ROUTE .COMPLEX Rx Instructions: brush on teeth bid with use of regular tooth paste do not eat or drink 30 mins after (use at 07:00 & 20:00) aspirin 81 mg tablet,delayed release (DR/EC) 81 mg PO DAILY@07 Acidophilus 175 mg PO DAILY@19 loperamide 2 mg Tablet 2 mg PO QID PRN (Reason: Diarrhea) pantoprazole 40 mg tablet,delayed release (DR/EC) 40 mg PO DAILY@07 insulin aspart U-100 [Novolog U-100 Insulin aspart] 100 unit/mL solution See Rx Instructions .ROUTE .COMPLEX Rx Instructions: PER SLIDING SCALE- CHECK BS AC MEALS AND HS BEFORE SLIDING SCALE @ 05:30,11:00,16:00,20:00 150-200=0 units 201-250=2 units 251-300=4 units 301-350=6 units 351-400=8 units Debrox 6.5 % Drops See Rx Instructions .ROUTE .COMPLEX Rx Instructions: 5-10 GTTS EACH EAR MONTHLY. Flonase Sensimist 27.5 mcg/actuation [place],Suspension 1 spray INTRANASAL DAILY@0700 roflumilast [Daliresp] 500 mcg tablet 500 mcg PO DAILY@0700 Trelegy Ellipta 100-62.5-25 mcg blister with device 1 inh inhalation DAILY@07 acetaminophen [Tylenol Extra Strength] 500 mg Tablet 1,000 mg PO Q4H MDD 8 tabs PRN (Reason: Pain) magnesium hydroxide [Milk of Magnesia] 400 mg/5 mL Suspension See Rx Instructions .ROUTE .COMPLEX Rx Instructions: 30ML PO ONCE DAILY PRN IF NO BM FOR 3 DAYS bisacodyl [Dulcolax (bisacodyl)] 10 mg Suppository 10 mg DC DAILY PRN (Reason: Constipation) Rx Instructions: IF NO BM FROM MOM, IF CAN'T TAKE PO & NO RESULTS OF M.O.M. Fleet Enema 19-7 gram/118 mL Enema 118 ml DC DAILY PRN (Reason: Constipation) Rx Instructions: IF NO RESUTLS FROM M.O.M. gabapentin 300 mg capsule 300 mg PO BID@0700,2000 bisacodyl [Dulcolax (bisacodyl)] 5 mg Tablet,Delayed Release (Dr/Ec) 10 mg PO DAILY PRN (Reason: Constipation) melatonin 5 mg Tablet 5 mg PO BEDTIME@2000 venlafaxine 75 mg Capsule,Extended Release 24hr 75 mg PO DAILY@0700 Saline Nasal 0.65 % Aerosol,[place] See Rx Instructions .ROUTE .COMPLEX Rx Instructions: SQUEEZE INTO DRY NOSTRILS BID THEN FOLLOW WITH BACTROBAN. USE AT 0700 AND 2000 levetiracetam 500 mg tablet See Rx Instructions .ROUTE .COMPLEX Rx Instructions: 500mg po qam @07:00 and 1000mg po daily@19:00 tramadol 50 mg tablet 50 mg PO Q8H PRN (Reason: pain) Qty: 10 0RF insulin degludec [Tresiba FlexTouch U-200] 200 unit/mL (3 mL) insulin pen 10 unit SUBCUT BEDTIME zinc acetate 50 mg (zinc) Capsule 50 mg PO DAILY@07 bumetanide 0.5 mg tablet 0.5 mg PO DAILY@07 ipratropium-albuterol 0.5 mg-3 mg(2.5 mg base)/3 mL Solution For Nebulization 3 ml INHALATION Q4H PRN (Reason: Shortness Of Breath) carboxymethylcellulose sodium [Refresh Tears] 0.5 % Drops 1 - 2 drp ophthalmic (eye) .EVERY 2 HOURS PRN (Reason: Dry Eye(S)) clotrimazole 1 % Cream See Rx Instructions .ROUTE .COMPLEX Rx Instructions: apply topically to scales in right foot lactulose 10 gram/15 mL solution 10 g PO DAILY PRN (Reason: constipation) Qty: 473 0RF Vitamin D3 50 mcg (2,000 unit) Capsule 50 mcg PO DAILY@07 Jardiance 25 mg Tablet 25 mg PO DAILY@07 Senna-S 8.6-50 mg tablet 1 tab-cap PO DAILY@07 naproxen sodium 220 mg Tablet 220 mg PO BID PRN (Reason: Pain) oxycodone 5 mg tablet 5 mg PO Q12H PRN (Reason: Pain) terbinafine HCl 1 % Cream 1 applic TOPICAL BID@, triamcinolone acetonide 0.1 % ointment 1 applic TOPICAL BID@,20 lidocaine 5 % Adhesive Patch,Medicated 1 patch TOPICAL DAILY PRN (Reason: Pain) Rx Instructions: leave on most painful area for up to 12 hrs then off for 12 hours PreserVision AREDS [id number] capsule 1 cap PO BID@, ammonium lactate 12 % cream 1 applic topical DAILY@20 Referrals: Tashi Acosta MD [Primary Care Provider] - Coding Level of Care Code ED [employer] Operator for Chg Fwbrady
--- NOTE | 2022-07-09 13:22 | XRR_ITS ---
PROCEDURE INFORMATION: Exam: XR Chest Exam date and time: 07/09/2022 1:25 PM Age: 67 years old Clinical indication: Dyspnea; Additional info: Chf, dyspnea, copd TECHNIQUE: Imaging protocol: Radiologic exam of the chest. Views: 1 view. COMPARISON: CR XR chest 1V portable [id number] 07/07/2022 3:51 PM FINDINGS: Lungs: No consolidation. Pleural spaces: No pleural effusion. No pneumothorax. Heart/Mediastinum: Mild cardiomegaly and central pulmonary vascular congestion again noted, similar to prior studies. Bones/joints: Visualized osseous structures are intact. XR/XR chest 1V portable [id number] IMPRESSION: No acute findings.
[2022-07-09 13:31] LABS: Basophils # 0.1 10^3/uL (0.0-0.1); Basophils % 0.3 %; Eosinophils # 0.3 10^3/uL (0.0-0.8); Eosinophils % 2.1 %; Hematocrit 53.4 % (37.0-47.0); Hemoglobin 16.2 g/dL (11.5-15.3); Lymphocytes # 1.2 10^3/uL (0.8-4.8); Lymphocytes % 8.1 %; Mean Corpuscular HGB Conc 30.3 g/dL (30.0-36.0); Mean Platelet Volume 12.1 fL (7.4-10.4); Monocytes # 1.1 10^3/uL (0.2-0.9); Monocytes % 7.4 %; Neutrophils # 11.88 10^3/uL (1.8-7.7); Neutrophils % 81.7 %; Nucleated Red Blood Cells % 0 %; Platelet Count 221 10^3/cmm (130-400); White Blood Count 14.6 10^3/uL (4.0-10.0)
[2022-07-09 14:07] LABS: Alanine Aminotransferase 15 U/L (0-33); Albumin Level 4.7 g/dL (3.5-5.2); Alkaline Phosphatase 114 U/L (35-105); Aspartate Amino Transferase 22 U/L (0-32); Blood Urea Nitrogen 18 mg/dL (8-23); Calcium 9.6 mg/dL (8.5-10.5); Carbon Dioxide 29 mmol/L (22-29); Chloride 87 mmol/L (98-107); Globulin 3.7 g/dL (1.3-4.6); Glomerular Filtration Rate 62.1 mL/min (90-130); Glucose 204 mg/dL (65-115); NT Pro B Type Natriuretic Pept 1659 pg/mL (0-125); Osmolality Calculated 278 mOsm/kg (285-295); Sodium 130 mmol/L (136-145); Total Bilirubin 0.7 mg/dL (0.15-1.2); Total Protein 8.4 g/dL (6.6-8.7)
[2022-07-09 14:16] LABS: Anion Gap 17.8 (5-19); Potassium 3.8 mmol/L (3.5-5.1)
[2022-07-09] MEDS: FUROsemide 10 mg/mL SDV 4mL 40 MG IVP (14:36)
--- NOTE | 2022-07-09 14:59 | PC.PHAR ---
PT IS FROM [facility] [phone]-[id number] FROM [facility] STATES THE PT HAD ALL AM MEDS TODAY EXCEPT NO INSULINS STATES THE PTS BS WAS 196 THIS AM-
--- NOTE | 2022-07-09 15:01 | PC.NURSE ---
REPORT GIVEN TO [facility].
--- NOTE | 2022-07-09 19:12 | PM.HP ---
Providers/Chief Complaint Admitting Physician: Gladys Salcedo MD Primary Care Provider: Tashi Acosta MD Chief Complaint: SOB History of Present Illness Yaquelin Loera is a 67 year old female with PMH HTN, DM, rheumatic mitral valvular heart disease, non ischemic cardiomyopathy, h/o V fib, obstructive lung disease who is presenting to the ER with c/o one week of worsening dyspnea. She reports increased wheezing not improved with nebulizations, increased post nasal drip and nasal congestion. Denies fever. Denies chets pain, dyspnea, palpitations or syncope. Review of Systems General: Reports: 10 or more systems reviewed and unremarkable except in HPI and below Const: Denies: fever(s), chills or body aches Eyes: Denies: change in vision, blurry vision or photophobia ENMT: Reports: hoarseness; Denies: throat pain, enlarged tonsils, odynophagia or nasal congestion Card: Denies: chest pain, palpitations, irregular heart rhythm, edema, swelling of feet/ankles, lightheadedness, pre-syncope, dyspnea on exertion or orthopnea Resp: Denies: dyspnea, productive cough, non-productive cough, wheezing, stridor, pain on inspiration, change in phlegm color, hemoptysis or chest congestion GI: Denies: abdominal pain, nausea, vomiting, hematemesis, coffee ground emesis, dysphagia, heartburn, diarrhea, constipation, GI cramping, change in stool character, hematochezia or melena : Denies: flank pain, difficulty voiding, dysuria, urinary frequency, urinary urgency, urinary hesitancy or hematuria Musc: Denies: neck pain, back pain, extremity pain, joint swelling, joint warmth or deformity Neuro: Denies: headache(s), numbness in extremities, weakness in extremities, sensory changes, difficulty walking, frequent falls, dizziness, vertigo, behavioral changes, Slurred speech present or seizure-like activity Psych: Denies: anxiety, depression, suicidal ideation or homicidal ideation Endo: Denies: polyuria, polydipsia, tired all the time, cold intolerance or hot flashes Maximo/Lymph: Denies: easy bruising or easy bleeding Medications/Allergies Home Medications Medication Instructions Recorded Confirmed Last Taken Type acetaminophen 500 mg tablet 1,000 mg PO Q4H PRN Pain 05/16/19 07/09/2211/08/21 History (Tylenol Extra Strength) bisacodyl 10 mg rectal suppository 10 mg HI DAILY PRN Constipation 05/16/19 07/09/22 Unknown History (Dulcolax (bisacodyl)) bisacodyl 5 mg tablet,delayed 10 mg PO DAILY PRN Constipation 05/16/19 07/09/22 Unknown History release (Dulcolax (bisacodyl)) carbamide peroxide 6.5 % ear drops See Rx Instructions .Route .COMPLEX 05/16/19 07/09/22 06/03/19 History (Debrox) fluticasone fur. 100 mcg-umeclid 1 inh inhalation DAILY@05/16/19 07/09/22 12/09/20 History 62.5 mcg-vilant 25 mcg inhalat.powder (Trelegy Ellipta) fluticasone furoate 27.5 1 spray intranasal DAILY@69905/16/19 07/09/22 12/09/20 History mcg/actuation nasal spray,suspension (Flonase Sensimist) gabapentin 300 mg capsule 300 mg PO BID@07,199905/16/19 07/09/22 07/09/22 History insulin aspart U-100 100 unit/mL See Rx Instructions .Route .COMPLEX 05/16/19 07/09/22 06/03/19 History subcutaneous solution (Novolog U-100 Insulin aspart) magnesium hydroxide 400 mg/5 mL See Rx Instructions .Route .COMPLEX 05/16/19 07/09/22 Unknown History oral suspension (Milk of Magnesia) melatonin 5 mg tablet 5 mg PO BEDTIME@199905/16/19 07/09/22 12/08/20 History roflumilast 500 mcg tablet 500 mcg PO DAILY@69905/16/19 07/09/22 07/09/22 History (Daliresp) sodium phosphates 19 gram-7 118 ml HI DAILY PRN Constipation 05/16/19 07/09/22 Unknown History gram/118 mL enema (Fleet Enema) sodium chloride 0.65 % nasal spray See Rx Instructions .Route .COMPLEX 05/31/19 07/09/22 12/09/20 History aerosol (Saline Nasal) venlafaxine 75 mg capsule,extended 75 mg PO DAILY@0705/31/19 07/09/2223/23 History release 24 hr levetiracetam 500 mg tablet See Rx Instructions .Route .COMPLEX 06/03/19 07/09/22 07/09/22 History Cough Drops See Rx Instructions .Route .COMPLEX 01/30/20 07/09/22 Unknown History ondansetron 4 mg disintegrating 4 mg PO Q6H PRN nausea and 01/30/20 07/09/22 10/28/20 06:49 Rx tablet vomiting #14 tabs mirabegron 25 mg tablet,extended 25 mg PO DAILY@0700 10/28/20 07/09/22 07/09/22 History release 24 hr (Myrbetriq) promethazine-DM 6.25 mg-15 mg/5 mL 5 ml PO Q6H PRN Cough 10/28/20 07/09/22 Unknown History oral syrup Acidophilus 175 mg PO DAILY@12/09/20 07/09/22 12/08/20 History aspirin 81 mg tablet,delayed 81 mg PO DAILY@12/09/20 07/09/22 07/09/22 History release fluoride (sodium) 1.1 % dental See Rx Instructions .Route .COMPLEX 12/09/20 07/09/22 Unknown History cream (SF 5000 Plus) hydroxyzine HCl 25 mg tablet 25 mg PO Q8H PRN Anxiety 12/09/20 07/09/22 Unknown History loperamide 2 mg tablet 2 mg PO QID PRN Diarrhea 12/09/20 07/09/22 Unknown History pantoprazole 40 mg tablet,delayed 40 mg PO DAILY@12/09/20 07/09/22 07/09/22 History release semaglutide 0.25 mg or 0.5 mg (2 0.5 mg SUBCUT Q7D 12/09/20 07/09/22 12/06/20 History mg/1.5 mL) subcutaneous pen injector (Ozempic) albuterol sulfate 90 mcg/actuation 1 puff inhalation Q6H PRN 07/22/21 07/09/22 Unknown Rx aerosol inhaler Shortness Of Breath #8.5 grams rosuvastatin 40 mg tablet 40 mg PO DAILY@09/08/21 07/09/22 Unknown History Diabetic Shoes #1 ea 11/03/21 07/09/22 Unknown Rx bumetanide 0.5 mg tablet 0.5 mg PO DAILY@01/05/22 07/09/22 07/09/22 History carboxymethylcellulose sodium 0.5 1 - 2 drp ophthalmic (eye) .EVERY 01/05/22 07/09/22 Unknown History % eye drops (Refresh Tears) 2 HOURS PRN Dry Eye(S) clotrimazole 1 % topical cream See Rx Instructions .Route .COMPLEX 01/05/22 07/09/22 Unknown History ipratropium 0.5 mg-albuterol 3 mg 3 ml inhalation Q4H PRN Shortness 01/05/22 07/09/22 Unknown History (2.5 mg base)/3 mL nebulization Of Breath soln zinc acetate 50 mg (zinc) capsule 50 mg PO DAILY@01/05/22 07/09/22 07/09/22 History lactulose 10 gram/15 mL oral 10 g (15 mL) PO DAILY PRN 01/06/22 07/09/22 Unknown Rx solution constipation #473 mL tramadol 50 mg tablet 50 mg PO Q8H PRN pain #10 tabs 04/29/22 07/09/22 Unknown Rx ammonium lactate 12 % topical cream 1 applic topical DAILY@07/09/22 07/09/22 Unknown History cholecalciferol (vitamin D3) 50 50 mcg PO DAILY@07/09/22 07/09/22 07/09/22 History mcg (2,000 unit) capsule (Vitamin D3) empagliflozin 25 mg tablet 25 mg PO DAILY@07/09/22 07/09/22 07/09/22 History (Jardiance) insulin degludec 100 unit/mL (3 10 unit SUBCUT BEDTIME 07/09/22 07/09/22 Unknown History mL) subcutaneous pen (Tresiba FlexTouch U-100 insulin) lidocaine 5 % topical patch 1 patch topical DAILY PRN Pain 07/09/22 07/09/22 Unknown History naproxen sodium 220 mg tablet 220 mg PO BID PRN Pain 07/09/22 07/09/22 Unknown History oxycodone 5 mg tablet 5 mg PO Q12H PRN Pain 07/09/22 07/09/22 Unknown History sennosides 8.6 mg-docusate sodium 1 tab-cap PO DAILY@07/09/22 07/09/22 07/09/22 History 50 mg tablet (Senna-S) terbinafine HCl 1 % topical cream 1 applic topical BID@,07/09/22 07/09/22 Unknown History triamcinolone acetonide 0.1 % 1 applic topical BID@,20 07/09/22 07/09/22 Unknown History topical ointment vitamins A,C,J-jzfd-buzqyu 14,320 1 cap PO BID@,07/09/22 07/09/22 07/09/22 History unit-226 mg-200 unit capsule (PreserVision AREDS) Allergies Allergy/AdvReac Type Severity Reaction Status Date / Time metformin Allergy ADR-Dry Verified 07/09/22 12:53 Mucus Membranes Penicillins Allergy ALGY-Anaphy Verified 07/09/22 12:53 laxis Sulfa (Sulfonamide Allergy ALGY-Anaphy Verified 07/09/22 12:53 Antibiotics) laxis PFSH Acute PFSH: Medical History Acute on chronic diastolic (congestive) heart failure Benign essential hypertension with target blood pressure below 140/90 Chronic respiratory failure with hypoxia and hypercapnia COPD (chronic obstructive pulmonary disease) Depression Diastolic congestive heart failure Hyperlipidemia Hypertension Moderate to severe mitral regurgitation Nonischemic cardiomyopathy Obesity Obesity hypoventilation syndrome Obstructive sleep apnea Pulmonary hypertension Restrictive lung disease Seizure disorder Sleep apnea Small bowel obstruction T12 vertebral fracture Tricuspid regurgitation Type 2 diabetes mellitus Surgical History H/O mitral valve replacement History of Ulnar nerve compression Family History Brother CAD (coronary artery disease) Sister CAD (coronary artery disease) Grandmother Diabetes Mother Stroke Denies family history of Clotting disorder Dementia Chronic kidney disease (CKD) Suicide Anesthesia complication Bleeding disorder Lung disease Cancer Social History Smoking and tobacco status: current every day smoker cigarettes Packs smoked per day: 0.25 Years cigarettes smoked: 33 [ Other cigarette details: Hx of 1PPD x 30 Years, started 1991] Second hand smoke exposure: Yes Smoking risk assessment/counseling performed?: Yes Alcohol intake: never Counseling given: No Substance/Drug Use: never Counseling given: No Caregiver/support person: Yes Lives independently: No Housing: Assisted Living Facility Marital status: / Current occupational status: retired and disabled Do you think of yourself as: Straight/Heterosexual Current gender identity: Female Vitals/I&O/Wt Last Vital Signs Temp 97.5 F L 07/09/22 15:54 Pulse 93 07/09/22 15:54 Resp 20 H 07/09/22 15:54 BP 124/88 07/09/22 15:54 Pulse Ox 94 07/09/22 15:54 O2 Del Method Nasal Cannula 07/09/22 15:01 O2 Flow Rate 2 07/09/22 15:01 Weight last 48 hrs Weight 95.254 kg Physical Exam Narrative: General: No acute distress, AO x3 HEENT: PERRLA, pupils bilaterally equal and reactive, pallors not present Chest: BL wheezing to all areas on auscultation CVS: S1-S2 regular, no murmurs, no tachycardia, no gallops, no rubs Abdomen: Soft, nontender, no organomegaly, bowel sounds present Neuro: No focal deficits, no facial deformity, AO x3, power 5/5 in all limbs Extremities: no edema, clubbing or cyanosis Data 07/10/22 01:36 07/10/22 01:36 Other Labs: CXR: no infiltrates A&P Assessment and plan (1) Acute bronchitis: (2) Congestive heart failure: (3) Acute exacerbation of chronic obstructive airways disease: Plan 67F with known obstrcutive lung disease, follows with pulmonolgy, baseline usues 2-3 lpm supplemental 02 presneting with one week of worsening dyspnea, increased wheezing not relieved by increased nebulization at home. She is noted to have significant wheezing on exam today along with symptoms of nasal congestion and post nasal drip suspect her to have acute on chronic COPD exacerbation vs acute bronchitis, possibly viral or bacterial Currently needing 6 lpm supplemental 02 She has thus far received lasix 40 mg from the ER Start on scheduled duonebs every 6 hrs, budesonide inhalation every 12 hrs, systemic steroids with methylpred 40 mg iv q8h , levaquin given leukocytsosis cant rule out bacterial bronchitis currently appears to be clinically euvolemic, continue Bumex at home dosing of 0.5 mg po daily Hold off further iv lasix for now check troponins, BNP and d dimer Attestations Medical Necessity Statement*: anticipate > 2midnight stay for need for iv steroids, round the clock nebulizations, monitor respiratory status Coding Level of Care Code Acute Code for [facility] Fwd Diagnoses Acute bronchitis J20.9 Congestive heart failure I50.9 Acute exacerbation of chronic obstructive airways disease J44.1
[2022-07-09] MEDS: atorvastatin 40 mg Tablet 80 MG PO (19:58)
[2022-07-09] MEDS: enoxaparin 40 mg/0.4 mL Syringe SUBCUT (19:58)
[2022-07-09] MEDS: gabapentin 300 mg Capsule PO (19:58)
[2022-07-09 20:14] LABS: D Dimer 0.67 ug/mIFEU (0-0.59)
[2022-07-09 20:21] LABS: Troponin(5th) Baseline 18 ng/L (0-10)
[2022-07-09] MEDS: levETIRAcetam 500 mg Tablet 1000 MG PO (20:22)
--- NOTE | 2022-07-09 20:48 | ECG_ITS ---
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 Measurements Intervals [place] Rate: 84 P: 60 MO: 179 QRS: 81 QRSD: 95 T: 72 QT: 419 QTc: 498 Interpretive Statements SINUS RHYTHM WITH FREQUENT VENTRICULAR PREMATURE COMPLEXES POSSIBLE LEFT ATRIAL ENLARGEMENT [-0.1mV P-WAVE IN V1/V2] ABNORMAL RHYTHM ECG Compared to ECG 07/07/2022 17:50:10 No significant changes Electronically Signed On 07-10-2022 14:27:25 CDT by Beau Rm M.D. [id number]
[2022-07-09] MEDS: ipratropium-albuterol 3 mL Neb INHALATION (20:51)
--- NOTE | 2022-07-09 21:10 | ECG_ITS ---
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 Measurements Intervals [place] Rate: 85 P: 65 MI: 182 QRS: 104 QRSD: 97 T: 72 QT: 407 QTc: 487 Interpretive Statements SINUS RHYTHM WITH FREQUENT VENTRICULAR PREMATURE COMPLEXES POSSIBLE RIGHT ATRIAL ENLARGEMENT [0.25mV P-WAVE] POSSIBLE LEFT ATRIAL ENLARGEMENT [-0.1mV P-WAVE IN V1/V2] RIGHT AXIS DEVIATION [QRS AXIS > 100] Compared to ECG 07/09/2022 20:48:49 Right-axis deviation now present Electronically Signed On 07-10-2022 14:31:38 CDT by Beau Rm M.D. [id number]
[2022-07-09 21:13] LABS: Glucose Point of Care 317 mg/dL (70-110)
[2022-07-09] MEDS: insulin glargine 100 units/1 mL 10 UNIT SUBCUT (21:22)
[2022-07-09] MEDS: insulin lispro 100 unit/1 mL SUBCUT (21:22)
[2022-07-09 21:45] LABS: Troponin 5 2HR 16.42 ng/L (0-10)
[2022-07-09 21:48] LABS: Troponin 5 2HR Delta -1.58 ABS# (0-10)
[2022-07-09 21:54] LABS: Adenovirus Not Detected (NOT DETECT); Chlamydia Pneumoniae Not Detected (NOT DETECT); Coronavirus 229E,HKU1,NL63,OC4 Not Detected (NOT DETECT); Human Metapneumovirus Not Detected (NOT DETECT); Human Rhinovirus/Enterovirus Detected (NOT DETECT); Influenza A Not Detected (NOT DETECT); Influenza A H1 Not Detected (NOT DETECT); Influenza A H1-2009 Not Detected (NOT DETECT); Influenza A H3 Not Detected (NOT DETECT); Influenza B Not Detected (NOT DETECT); Mycoplasma Pneumoniae Not Detected (NOT DETECT); Parainfluenza Virus Type 1 Not Detected (NOT DETECT); Parainfluenza Virus Type 2 Not Detected (NOT DETECT); Parainfluenza Virus Type 3 Not Detected (NOT DETECT); Parainfluenza Virus Type 4 Not Detected (NOT DETECT); Respiratory Syncytial Virus A Not Detected (NOT DETECT); Respiratory Syncytial Virus B Not Detected (NOT DETECT); SARS-COV-2 Not Detected (NOT DETECT)
[2022-07-10] VITALS (15 sets, daily range): BP systolic 98–118; BP diastolic 62–75; PULSE 82–101; RESP 16–20; TEMP 36.3–36.8; O2SAT 91–96
--- NOTE | 2022-07-10 01:10 | ECG_ITS ---
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 Measurements Intervals [place] Rate: 80 P: 71 ID: [id number] QRS: 104 QRSD: 97 T: 71 QT: 427 QTc: 494 Interpretive Statements SINUS RHYTHM POSSIBLE LEFT ATRIAL ENLARGEMENT [-0.1mV P-WAVE IN V1/V2] RIGHT AXIS DEVIATION [QRS AXIS > 100] Compared to ECG 07/09/2022 21:56:21 Ventricular premature complex(es) no longer present Electronically Signed On 07-10-2022 14:33:11 CDT by Beau Rm M.D. [id number]
[2022-07-10] MEDS: ipratropium-albuterol 3 mL Neb INHALATION ×4 (01:17→20:56)
[2022-07-10 01:58] LABS: Basophils % 0.2 %; Eosinophils % 0.2 %; Hematocrit 52.4 % (37.0-47.0); Lymphocytes # 0.5 10^3/uL (0.8-4.8); Lymphocytes % 8.7 %; Mean Corpuscular HGB Conc 30.5 g/dL (30.0-36.0); Mean Corpuscular Hemoglobin 27.3 pg (28.0-34.0); Mean Corpuscular Volume 89.3 fl (81-99); Mean Platelet Volume 11.1 fL (7.4-10.4); Monocytes # 0.1 10^3/uL (0.2-0.9); Monocytes % 1.5 %; Neutrophils % 89.1 %; Nucleated Red Blood Cells % 0 %; Platelet Count 202 10^3/cmm (130-400); Red Blood Count 5.87 10^6/uL (4.1-5.3); Red Cell Distribution Width 14.9 % (12.1-15.1); White Blood Count 5.8 10^3/uL (4.0-10.0)
[2022-07-10 02:20] LABS: Alanine Aminotransferase 13 U/L (0-33); Albumin Level 4.3 g/dL (3.5-5.2); Alkaline Phosphatase 95 U/L (35-105); Anion Gap 18.6 (5-19); Aspartate Amino Transferase 18 U/L (0-32); Blood Urea Nitrogen 23 mg/dL (8-23); Calcium 9.5 mg/dL (8.5-10.5); Carbon Dioxide 31 mmol/L (22-29); Chloride 94 mmol/L (98-107); Globulin 3.6 g/dL (1.3-4.6); Glucose 230 mg/dL (65-115); Osmolality Calculated 301 mOsm/kg (285-295); Potassium 3.6 mmol/L (3.5-5.1); Sodium 140 mmol/L (136-145); Total Bilirubin 0.6 mg/dL (0.15-1.2); Total Protein 7.9 g/dL (6.6-8.7)
[2022-07-10] MEDS: aspirin 81 mg EC Tablet PO (06:05)
[2022-07-10] MEDS: venlafaxine ER (24HR) 75 mg Capsule PO (06:05)
[2022-07-10] MEDS: roflumilast 500 mcg Tablet PO (06:05)
[2022-07-10] MEDS: levETIRAcetam 500 mg Tablet PO (06:05)
[2022-07-10] MEDS: gabapentin 300 mg Capsule PO ×2 (06:05→20:07)
[2022-07-10] MEDS: bumetanide 1 mg Tablet 0.5 MG PO (06:05)
[2022-07-10 06:26] LABS: Glucose Point of Care 220 mg/dL (70-110)
[2022-07-10] MEDS: levoFLOXacin 750 mg Tablet PO (08:45)
[2022-07-10] MEDS: insulin lispro 100 unit/1 mL SUBCUT ×4 (08:45→21:26)
[2022-07-10] MEDS: pantoprazole DR 40 mg Tablet PO (08:45)
[2022-07-10 11:18] LABS: Glucose Point of Care 321 mg/dL (70-110)
--- NOTE | 2022-07-10 16:29 | PM.PN ---
Subjective Subjective: Patient was seen and examined this morning she continues to have significant shortness of breath as well as significant wheezing. Medications: Medication Review Details: Generic Name Dose Route Start Last Admin Trade Name Bonita PRN Reason Stop Dose Admin Albuterol/Ipratrop ium 3 ml 07/09/22 20:00 07/10/22 13:30 Ipratropium-Albu terol 3 Ml Neb INHALATION 3 ml Q6H.RESP MARCO Administration Aspirin 81 mg 07/10/22 07:00 07/10/22 06:05 Aspirin 81 Mg Ec Tablet PO 81 mg DAILY@07 MARCO Administration Atorvastatin Calci um 80 mg 07/09/22 20:00 07/09/22 19:58 Atorvastatin 40 Mg Tablet PO 80 mg DAILY@20 MARCO Administration Budesonide 0.5 mg 07/09/22 20:00 07/10/22 08:03 Budesonide 0.5 M g/2 Ml Neb INHALATION Not Given BID.RESPIRATORY S CH Bumetanide 0.5 mg 07/10/22 07:00 07/10/22 06:05 Bumetanide 1 Mg Tablet PO 0.5 mg DAILY@07 MARCO Administration Enoxaparin Sodium 40 mg 07/09/22 19:15 07/09/22 19:58 Enoxaparin 40 Mg /0.4 Ml Syringe SUBCUT 40 mg Q24H MARCO Administration Gabapentin 300 mg 07/09/22 20:00 07/10/22 06:05 Gabapentin 300 M g Capsule PO 300 mg BID@0700,2000 MARCO Administration Insulin Glargine 10 unit 07/09/22 21:00 07/09/22 21:22 Insulin Glargine 100 Units/1 Ml SUBCUT 10 unit BEDTIME MARCO Administration Insulin Human Lisp ro 0 unit 07/09/22 21:00 07/10/22 12:52 Insulin Lispro 1 00 Unit/1 Ml SUBCUT 10 unit WM&BEDTIME MARCO Administration Protocol Levetiracetam 500 mg 07/10/22 07:00 07/10/22 06:05 Levetiracetam 50 0 Mg Tablet PO 500 mg DAILY@0700 MARCO Administration Levetiracetam 1,000 mg 07/09/22 20:15 07/09/22 20:22 Levetiracetam 50 0 Mg Tablet PO 1,000 mg DAILY@1900 MARCO Administration Levofloxacin 750 mg 07/10/22 09:00 07/10/22 08:45 Levofloxacin 750 Mg Tablet PO 750 mg DAILY MARCO Administration Protocol Methylprednisolone Sodium Succinate 40 mg 07/10/22 03:00 07/10/22 12:53 Methylprednisolo ne Sod Succ 125 Mg /2 Ml Inj IVP 40 mg Q8H MARCO Administration Pantoprazole Sodiu m 40 mg 07/10/22 09:00 07/10/22 08:[address] 40 Mg Tablet PO 40 mg DAILY MARCO Administration Roflumilast 500 mcg 07/10/22 07:00 07/10/22 06:05 Roflumilast 500 Mcg Tablet PO 500 mcg DAILY@0700 MARCO Administration Venlafaxine HCl 75 mg 07/10/22 07:00 07/10/22 06:05 Venlafaxine Er ( 24hr) 75 Mg Capsul e PO 75 mg DAILY@0700 MARCO Administration Vitals/I&O/Wt Last Vital Signs Temp 97.8 F 07/10/22 12:00 Pulse 96 07/10/22 13:38 Resp 20 H 07/10/22 13:31 BP 107/72 07/10/22 12:00 Pulse Ox 96 07/10/22 13:31 O2 Del Method Nasal Cannula 07/10/22 13:31 O2 Flow Rate 4 07/10/22 13:31 07/10/22 07/10/22 07/10/22 06:59 14:59 22:59 Intake Total 120 / 120 960 / 960 Balance 120 / 120 960 / 960 Weight last 48 hrs Weight 95.254 kg Weight 95.254 kg Physical Exam Const: COMMON NORMALS: patient oriented x3 HENMT: COMMON NORMALS: normocephalic and atraumatic HEAD & SCALP: normocephalic and atraumatic Resp: COMMON NORMALS: normal respiratory effort EFFORT & INSPECTION: Yes symmetric chest movement OTHER: Coarse breath sounds with bilateral wheezing Cardio: COMMON NORMALS: regular rate, regular rhythm, S1 normal heart sound present, S2 normal heart sound present, No gallops present (Cardio), No murmurs present (Cardio), No rub (Cardio) and Peripheral pulses 2+ throughout RATE: regular rate RHYTHM: regular rhythm HEART SOUNDS: S1 normal heart sound present and S2 normal heart sound present PERIPHERAL PULSES: Peripheral pulses 2+ throughout GI: COMMON NORMALS: Normal to inspection, nondistended, normoactive bowel sounds present, Soft to palpation, non-tender, No hepatosplenomegaly present and no masses AUSCULTATION: Yes normoactive bowel sounds PALPATION: Yes Soft to palpation and Yes No hepatosplenomegaly present RECTAL EXAM: deferred Extremity: COMMON NORMALS: no clubbing, cyanosis or edema and no pedal edema Neuro: COMMON NORMALS: patient oriented x3 Data 07/10/22 01:36 07/10/22 01:36 A&P Assessment and plan (1) Congestive heart failure: (2) Acute exacerbation of chronic obstructive airways disease: Plan 67F with known obstrcutive lung disease, follows with pulmonolgy, baseline usues 2-3 lpm supplemental 02 presneting with one week of worsening dyspnea, increased wheezing not relieved by increased nebulization at home. She is noted to have significant wheezing on exam today along with symptoms of nasal congestion and post nasal drip suspect her to have acute on chronic COPD exacerbation vs acute bronchitis, possibly viral or bacterial Currently needing 6 lpm supplemental 02 She has thus far received lasix 40 mg from the ER Start on scheduled duonebs every 6 hrs, budesonide inhalation every 12 hrs, systemic steroids with methylpred 40 mg iv q8h , levaquin given leukocytsosis cant rule out bacterial bronchitis currently appears to be clinically euvolemic, continue Bumex at home dosing of 0.5 mg po daily Hold off further iv lasix for now check troponins, BNP and d dimer Attestations Medical Necessity Statement*: Needs to be in hospital for IV steroids. Coding Level of Care Code 65222 Diagnoses Congestive heart failure I50.9 Acute exacerbation of chronic obstructive airways disease J44.1
[2022-07-10 16:32] LABS: Glucose Point of Care 210 mg/dL (70-110)
[2022-07-10] MEDS: atorvastatin 40 mg Tablet 80 MG PO (20:06)
[2022-07-10] MEDS: levETIRAcetam 500 mg Tablet 1000 MG PO (20:06)
[2022-07-10] MEDS: enoxaparin 40 mg/0.4 mL Syringe SUBCUT (20:07)
[2022-07-10 20:49] LABS: Glucose Point of Care 311 mg/dL (70-110)
[2022-07-10] MEDS: budesonide 0.5 mg/2 mL Neb INHALATION (20:56)
[2022-07-10] MEDS: insulin glargine 100 units/1 mL 10 UNIT SUBCUT (21:26)
[2022-07-11] VITALS (14 sets, daily range): BP systolic 103–129; BP diastolic 69–82; PULSE 87–101; RESP 16–20; TEMP 36.3–36.6; O2SAT 92–98
[2022-07-11] MEDS: ipratropium-albuterol 3 mL Neb INHALATION ×4 (03:30→21:19)
[2022-07-11 05:27] LABS: Glucose Point of Care 171 mg/dL (70-110)
[2022-07-11] MEDS: levETIRAcetam 500 mg Tablet PO (06:13)
[2022-07-11] MEDS: roflumilast 500 mcg Tablet PO (06:13)
[2022-07-11] MEDS: aspirin 81 mg EC Tablet PO (06:13)
[2022-07-11] MEDS: bumetanide 1 mg Tablet 0.5 MG PO (06:13)
[2022-07-11] MEDS: gabapentin 300 mg Capsule PO ×2 (06:13→20:22)
[2022-07-11] MEDS: venlafaxine ER (24HR) 75 mg Capsule PO (06:13)
[2022-07-11 06:38] LABS: Glucose Point of Care 222 mg/dL (70-110)
[2022-07-11] MEDS: budesonide 0.5 mg/2 mL Neb INHALATION ×2 (07:26→21:18)
[2022-07-11] MEDS: insulin lispro 100 unit/1 mL SUBCUT ×3 (08:06→18:06)
[2022-07-11] MEDS: levoFLOXacin 750 mg Tablet PO (08:06)
[2022-07-11] MEDS: pantoprazole DR 40 mg Tablet PO (08:06)
[2022-07-11 11:54] LABS: Glucose Point of Care 409 mg/dL (70-110)
[2022-07-11] MEDS: insulin lispro 100 unit/1 mL 10 UNIT SUBCUT (15:08)
--- NOTE | 2022-07-11 15:47 | PC.NURSE ---
PT LUNCH BS 409. NOTIFIED DR. ELAM. ORDERS FOR 10U HUMALOG AND INCREASE TO MODERATE DOSE SLIDING SCALE. PT REQUESTS ICECREAM. THIS NURSE EDUCATES PATIENT ON HYPERGLYCEMIA. NO ICECREAM GIVEN.
--- NOTE | 2022-07-11 16:06 | P.PN_ITS ---
Subjective Subjective: Patient was seen and examined this morning shortness of breath is significantly improved, I am hoping 1 more day of IV steroids will turn the course. Blood sugar has been significantly elevated today possibly secondary to steroid side effect, we will switch her to medium dose sliding scale insulin. Medications: Medication Review Details: Generic Name Dose Route Start Last Admin Trade Name Bonita PRN Reason Stop Dose Admin Albuterol/Ipratrop ium 3 ml 07/09/22 20:00 07/11/22 12:59 Ipratropium-Albu terol 3 Ml Neb INHALATION 3 ml Q6H.RESP MARCO Administration Aspirin 81 mg 07/10/22 07:00 07/11/22 06:13 Aspirin 81 Mg Ec Tablet PO 81 mg DAILY@07 MARCO Administration Atorvastatin Calci um 80 mg 07/09/22 20:00 07/10/22 20:06 Atorvastatin 40 Mg Tablet PO 80 mg DAILY@20 MARCO Administration Budesonide 0.5 mg 07/09/22 20:00 07/11/22 07:26 Budesonide 0.5 M g/2 Ml Neb INHALATION 0.5 mg BID.RESPIRATORY S [facility] Administration Bumetanide 0.5 mg 07/10/22 07:00 07/11/22 06:13 Bumetanide 1 Mg Tablet PO 0.5 mg DAILY@07 MARCO Administration Enoxaparin Sodium 40 mg 07/09/22 19:15 07/10/22 20:07 Enoxaparin 40 Mg /0.4 Ml Syringe SUBCUT 40 mg Q24H MARCO Administration Gabapentin 300 mg 07/09/22 20:00 07/11/22 06:13 Gabapentin 300 M g Capsule PO 300 mg BID@07,1999 MARCO Administration Insulin Glargine 10 unit 07/09/22 21:00 07/10/22 21:26 Insulin Glargine 100 Units/1 Ml SUBCUT 10 unit BEDTIME MARCO Administration Insulin Human Lisp ro 0 unit 07/09/22 21:00 07/11/22 13:50 Insulin Lispro 1 00 Unit/1 Ml SUBCUT 14 unit WM&BEDTIME MARCO Administration Protocol Levetiracetam 500 mg 07/10/22 07:00 07/11/22 06:13 Levetiracetam 50 0 Mg Tablet PO 500 mg DAILY@0700 MAROC Administration Levetiracetam 1,000 mg 07/09/22 20:15 07/10/22 20:06 Levetiracetam 50 0 Mg Tablet PO 1,000 mg DAILY@1900 [facility] Administration Levofloxacin 750 mg 07/10/22 09:00 07/11/22 08:06 Levofloxacin 750 Mg Tablet PO 750 mg DAILY [facility] Administration Protocol Methylprednisolone Sodium Succinate 40 mg 07/10/22 03:00 07/11/22 13:48 Methylprednisolo ne Sod Succ 125 Mg /2 Ml Inj IVP 40 mg Q8H MARCO Administration Pantoprazole Sodiu m 40 mg 07/10/22 09:00 07/11/22 08:[address] 40 Mg Tablet PO 40 mg DAILY [facility] Administration Roflumilast 500 mcg 07/10/22 07:00 07/11/22 06:13 Roflumilast 500 Mcg Tablet PO 500 mcg DAILY@0700 [facility] Administration Venlafaxine HCl 75 mg 07/10/22 07:00 07/11/22 06:13 Venlafaxine Er ( 24hr) 75 Mg Capsul e PO 75 mg DAILY@0700 [facility] Administration Vitals/I&O/Wt Last Vital Signs Temp 97.5 F L 07/11/22 15:43 Pulse 93 07/11/22 15:43 Resp 18 07/11/22 15:43 BP 126/77 07/11/22 15:43 Pulse Ox 96 07/11/22 15:43 O2 Del Method Nasal Cannula 07/11/22 15:43 O2 Flow Rate 3 07/11/22 13:00 07/11/22 07/11/22 07/11/22 06:59 14:59 22:59 Intake Total 360 / 360 Balance 360 / 360 Weight last 48 hrs Weight 95.254 kg Physical Exam Const: COMMON NORMALS: patient oriented x3 HENMT: COMMON NORMALS: normocephalic and atraumatic HEAD & SCALP: normocephalic and atraumatic Resp: OTHER: bilateral wheezing present in both the lungs co[place] Cardio: COMMON NORMALS: regular rate, regular rhythm, S1 normal heart sound present, S2 normal heart sound present, No gallops present (Cardio), No murmurs present (Cardio), No rub (Cardio) and Peripheral pulses 2+ throughout RATE: regular rate RHYTHM: regular rhythm HEART SOUNDS: S1 normal heart sound present and S2 normal heart sound present PERIPHERAL PULSES: Peripheral pulses 2+ throughout GI: COMMON NORMALS: Normal to inspection, nondistended, normoactive bowel sounds present, Soft to palpation, non-tender, No hepatosplenomegaly present and no masses AUSCULTATION: Yes normoactive bowel sounds PALPATION: Yes Soft to palpation and Yes No hepatosplenomegaly present RECTAL EXAM: deferred Extremity: COMMON NORMALS: no clubbing, cyanosis or edema and no pedal edema Neuro: COMMON NORMALS: patient oriented x3 Data 07/10/22 01:36 07/10/22 01:36 A&P Assessment and plan (1) Congestive heart failure: (2) Acute exacerbation of chronic obstructive airways disease: (3) Type 2 diabetes mellitus: medium dose sliding scale insulin. Monitor fingerstick glucose Diabetic diet (4) Moderate to severe mitral regurgitation: Plan 67F with known obstrcutive lung disease, follows with pulmonolgy, baseline usues 2-3 lpm supplemental 02 presneting with one week of worsening dyspnea, increased wheezing not relieved by increased nebulization at home. She is noted to have significant wheezing on exam today along with symptoms of nasal congestion and post nasal drip suspect her to have acute on chronic COPD exacerbation vs acute bronchitis, possibly viral or bacterial Currently needing 6 lpm supplemental 02 She has thus far received lasix 40 mg from the ER Start on scheduled duonebs every 6 hrs, budesonide inhalation every 12 hrs, systemic steroids with methylpred 40 mg iv q8h , levaquin given leukocytsosis cant rule out bacterial bronchitis currently appears to be clinically euvolemic, continue Bumex at home dosing of 0.5 mg po daily Hold off further iv lasix for now check troponins, BNP and d dimer Attestations Medical Necessity Statement*: Needs to be in hospital for management of COPD exacerbation IV steroids Coding Level of Care Code 84065 Diagnoses Congestive heart failure I50.9 Acute exacerbation of chronic obstructive airways disease J44.1 Type 2 diabetes mellitus E11.9 Moderate to severe mitral regurgitation I34.0
[2022-07-11 16:45] LABS: Glucose Point of Care 208 mg/dL (70-110)
[2022-07-11] MEDS: levETIRAcetam 500 mg Tablet 1000 MG PO (18:07)
[2022-07-11] MEDS: atorvastatin 40 mg Tablet 80 MG PO (20:22)
[2022-07-11] MEDS: enoxaparin 40 mg/0.4 mL Syringe SUBCUT (20:22)
[2022-07-11] MEDS: insulin glargine 100 units/1 mL 10 UNIT SUBCUT (20:23)
[2022-07-11 20:52] LABS: Glucose Point of Care 140 mg/dL (70-110)
[2022-07-11] MEDS: benzonatate 100 mg Capsule PO (22:04)
[2022-07-12] VITALS (8 sets, daily range): BP systolic 114–131; BP diastolic 63–78; PULSE 87–97; RESP 15–18; TEMP 36.4–36.6; O2SAT 95–99
[2022-07-12] MEDS: ipratropium-albuterol 3 mL Neb INHALATION ×3 (02:34→13:09)
[2022-07-12 06:01] LABS: Hematocrit 49.7 % (37.0-47.0); Hemoglobin 15.2 g/dL (11.5-15.3); Lymphocytes % 5.6 %; Mean Corpuscular HGB Conc 30.6 g/dL (30.0-36.0); Mean Corpuscular Hemoglobin 27.6 pg (28.0-34.0); Mean Corpuscular Volume 90.4 fl (81-99); Mean Platelet Volume 11.5 fL (7.4-10.4); Neutrophils % 87.9 %; Platelet Count 204 10^3/cmm (130-400); Red Cell Distribution Width 14.6 % (12.1-15.1)
[2022-07-12 06:02] LABS: Basophils % 0.1 %; Lymphocytes # 0.7 10^3/uL (0.8-4.8); Monocytes # 0.7 10^3/uL (0.2-0.9); Monocytes % 5.8 %; Neutrophils # 10.53 10^3/uL (1.8-7.7); Nucleated Red Blood Cells % 0 %
[2022-07-12] MEDS: bumetanide 1 mg Tablet 0.5 MG PO (06:14)
[2022-07-12] MEDS: roflumilast 500 mcg Tablet PO (06:14)
[2022-07-12] MEDS: gabapentin 300 mg Capsule PO (06:14)
[2022-07-12] MEDS: venlafaxine ER (24HR) 75 mg Capsule PO (06:14)
[2022-07-12] MEDS: aspirin 81 mg EC Tablet PO (06:15)
[2022-07-12] MEDS: levETIRAcetam 500 mg Tablet PO (06:15)
[2022-07-12 06:23] LABS: Alanine Aminotransferase 15 U/L (0-33); Albumin Level 3.9 g/dL (3.5-5.2); Alkaline Phosphatase 82 U/L (35-105); Aspartate Amino Transferase 24 U/L (0-32); Blood Urea Nitrogen 28 mg/dL (8-23); Calcium 9.3 mg/dL (8.5-10.5); Carbon Dioxide 30 mmol/L (22-29); Chloride 96 mmol/L (98-107); Glomerular Filtration Rate 62.1 mL/min (90-130); Glucose 213 mg/dL (65-115); Osmolality Calculated 294 mOsm/kg (285-295); Sodium 136 mmol/L (136-145); Total Bilirubin 0.3 mg/dL (0.15-1.2); Total Protein 6.9 g/dL (6.6-8.7)
[2022-07-12 06:27] LABS: Anion Gap 14.5 (5-19); Potassium 4.5 mmol/L (3.5-5.1)
[2022-07-12 06:41] LABS: Glucose Point of Care 207 mg/dL (70-110)
[2022-07-12] MEDS: budesonide 0.5 mg/2 mL Neb INHALATION (07:31)
[2022-07-12] MEDS: pantoprazole DR 40 mg Tablet PO (08:28)
[2022-07-12] MEDS: levoFLOXacin 750 mg Tablet PO (08:28)
[2022-07-12] MEDS: insulin lispro 100 unit/1 mL SUBCUT ×2 (08:29→12:22)
--- NOTE | 2022-07-12 10:58 | PC.SOCIAL ---
IMM update IMM updated with patient. Verbalized an understanding. Copy Pg 2 provided. Initialled, dated, timed, and placed in chart.
[2022-07-12 11:59] LABS: Glucose Point of Care 381 mg/dL (70-110)
--- NOTE | 2022-07-12 13:38 | PC.NURSE ---
This nurse called and gave report on patient to GERMANIA Salinas, at [facility]. All questions addressed and answered.
--- NOTE | 2022-07-12 18:34 | P.DS_ITS ---
Discharge Providers Date of Admission: 07/09/22 14:35 Date of Discharge: July 12, 2022 Attending Provider at Admission: Jacob Cuellar MD Attending Provider at Discharge: Beltran Fleming MD Primary Care Provider: Tashi Acosta MD Diagnoses at Discharge Discharge Diagnosis (1) Congestive heart failure: Status: Inactive (2) Acute exacerbation of chronic obstructive airways disease: Status: Acute (3) Type 2 diabetes mellitus: Status: Acute (4) Moderate to severe mitral regurgitation: Status: Acute Reason for Visit Reason for Visit: SOB Hospital Course Hospital Course HPI:Gladys Salcedo MD Yaquelin Loera is a 67 year old female with PMH HTN, DM, rheumatic mitral valvular heart disease, non ischemic cardiomyopathy, h/o V fib, obstructive lung disease who is presenting to the ER with c/o one week of worsening dyspnea. She reports increased wheezing not improved with nebulizations, increased post nasal drip and nasal congestion. Denies fever. Denies chets pain, dyspnea, palpitations or syncope. Hospital course: She was admitted for the management of COPD exacerbation: During the hospital stay she was kept on IV steroids, DuoNebs, supplemental oxygen as needed, empirically on levofloxacin, to which she responded well She was discharged on, p.o. prednisone as well as levofloxacin for continued benefit for her COPD exacerbation.During the hospital stay she was also managed for possible acute bronchitis she was on levofloxacin for that.Overall patient responded well to above medical management and she was discharged stable condition to home.She will continue to follow with her PCP as outpatient Physical Exam Const: COMMON NORMALS: patient oriented x3 HENMT: COMMON NORMALS: normocephalic and atraumatic HEAD & SCALP: normocephalic and atraumatic Resp: COMMON NORMALS: normal respiratory effort EFFORT & INSPECTION: Yes symmetric chest movement OTHER: Diminished air entry bilaterally Cardio: COMMON NORMALS: regular rate, regular rhythm, S1 normal heart sound present, S2 normal heart sound present, No gallops present (Cardio), No murmurs present (Cardio), No rub (Cardio) and Peripheral pulses 2+ throughout RATE: regular rate RHYTHM: regular rhythm HEART SOUNDS: S1 normal heart sound present and S2 normal heart sound present PERIPHERAL PULSES: Peripheral pulses 2+ throughout GI: COMMON NORMALS: Normal to inspection, nondistended, normoactive bowel sounds present, Soft to palpation, non-tender, No hepatosplenomegaly present and no masses AUSCULTATION: Yes normoactive bowel sounds PALPATION: Yes Soft to palpation and Yes No hepatosplenomegaly present RECTAL EXAM: deferred Extremity: COMMON NORMALS: no clubbing, cyanosis or edema and no pedal edema Neuro: COMMON NORMALS: patient oriented x3 Discharge Data Studies Completed and Pending Completed Studies During Hospitalization Category Date Time Status XR chest 1V portable [id number] Stat Exams 07/09/22 13:22 Completed Radiology Impressions Chest X-Ray 07/09/22 13:22 IMPRESSION: No acute findings. Laboratory Results WBC 12.0 10^3/uL (4.0-10.0) H 07/12/22 05:36 RBC 5.50 10^6/uL (4.1-5.3) H 07/12/22 05:36 Hgb 15.2 g/dL (11.5-15.3) 07/12/22 05:36 Hct 49.7 % (37.0-47.0) H 07/12/22 05:36 MCV 90.4 fl (81-99) 07/12/22 05:36 MCH 27.6 pg (28.0-34.0) L 07/12/22 05:36 MCHC 30.6 g/dL (30.0-36.0) 07/12/22 05:36 RDW 14.6 % (12.1-15.1) 07/12/22 05:36 Plt Count 204 10^3/cmm (130-400) 07/12/22 05:36 MPV 11.5 fL (7.4-10.4) H 07/12/22 05:36 Neut % (Auto) 87.9 % 07/12/22 05:36 Lymph % (Auto) 5.6 % 07/12/22 05:36 [place] % (Auto) 5.8 % 07/12/22 05:36 Eos % (Auto) 0.0 % 07/12/22 05:36 Baso % (Auto) 0.1 % 07/12/22 05:36 Neut # (Auto) 10.53 10^3/uL (1.8-7.7) H 07/12/22 05:36 Lymph # (Auto) 0.7 10^3/uL (0.8-4.8) L 07/12/22 05:36 [place] # (Auto) 0.7 10^3/uL (0.2-0.9) 07/12/22 05:36 Eos # (Auto) 0.0 10^3/uL (0.0-0.8) 07/12/22 05:36 Baso # (Auto) 0.0 10^3/uL (0.0-0.1) 07/12/22 05:36 Nucleated RBC % (auto) 0 % 07/12/22 05:36 Nucleated RBCs # 0.0 /100WBC 07/12/22 05:36 D-Dimer 0.67 ug/mIFEU (0-0.59) H 07/09/22 19:45 Sodium 136 mmol/L (136-145) 07/12/22 05:36 Potassium 4.5 mmol/L (3.5-5.1) 07/12/22 05:36 Chloride 96 mmol/L (98-107) L 07/12/22 05:36 Carbon Dioxide 30 mmol/L (22-29) H 07/12/22 05:36 Anion Gap 14.5 (5-19) 07/12/22 05:36 BUN 28 mg/dL (8-23) H 07/12/22 05:36 Creatinine 0.9 mg/dL (0.5-0.9) 07/12/22 05:36 GFR Calculation 62.1 mL/min (90-130) L 07/12/22 05:36 Glucose 213 mg/dL (65-115) H 07/12/22 05:36 POC Glucose 381 mg/dL (70-110) H 07/12/22 11:52 Calculated Osmolality 294 mOsm/kg (285-295) 07/12/22 05:36 Calcium 9.3 mg/dL (8.5-10.5) 07/12/22 05:36 Total Bilirubin 0.3 mg/dL (0.15-1.2) 07/12/22 05:36 AST 24 U/L (0-32) 07/12/22 05:36 ALT 15 U/L (0-33) 07/12/22 05:36 Alkaline Phosphatase 82 U/L (35-105) 07/12/22 05:36 Troponin T Baseline 18 ng/L (0-10) H 07/09/22 19:45 Troponin T 120 Minute 16.42 ng/L (0-10) H 07/09/22 21:24 Delta Troponin T -1.58 ABS# (0-10) L 07/09/22 21:24 Troponin T Hi Sens 6Hr 6.00 ng/L (0-10) 07/10/22 01:36 Troponin T Hi Sens 6Hr Delta -12.00 ng/L (0-12) L 07/10/22 01:36 NT-Pro-B Natriuret Pep 1659 pg/mL (0-125) H 07/09/22 12:33 Total Protein 6.9 g/dL (6.6-8.7) 07/12/22 05:36 Albumin 3.9 g/dL (3.5-5.2) 07/12/22 05:36 Globulin 3.0 g/dL (1.3-4.6) 07/12/22 05:36 Nasal Influ A H1 2009 PCR Not detected (NOT DETECT) 07/09/22 20:08 Adenovirus (PCR) Not detected (NOT DETECT) 07/09/22 20:08 C. pneumoniae DNA (PCR) Not detected (NOT DETECT) 07/09/22 20:08 Coronavirus 229E (PCR) Not detected (NOT DETECT) 07/09/22 20:08 Human Metapneumovir PCR Not detected (NOT DETECT) 07/09/22 20:08 Influenza A (H1) PCR Not detected (NOT DETECT) 07/09/22 20:08 Influenza A (H3) PCR Not detected (NOT DETECT) 07/09/22 20:08 Influenza Type A (PCR) Not detected (NOT DETECT) 07/09/22 20:08 Influenza Type B (PCR) Not detected (NOT DETECT) 07/09/22 20:08 M. pneumoniae (PCR) Not detected (NOT DETECT) 07/09/22 20:08 Parainfluenza 1 (PCR) Not detected (NOT DETECT) 07/09/22 20:08 Parainfluenza 2 (PCR) Not detected (NOT DETECT) 07/09/22 20:08 Parainfluenza 3 (PCR) Not detected (NOT DETECT) 07/09/22 20:08 Parainfluenza 4 (PCR) Not detected (NOT DETECT) 07/09/22 20:08 RSV Type A (PCR) Not detected (NOT DETECT) 07/09/22 20:08 RSV Type B (PCR) Not detected (NOT DETECT) 07/09/22 20:08 Entero/Rhino (PCR) Detected (NOT DETECT) A 07/09/22 20:08 SARS-CoV-2 (PCR) Not detected (NOT DETECT) 07/09/22 20:08 Vitals Last Vital Signs Temp 97.5 F L 07/12/22 11:29 Pulse 90 07/12/22 13:59 Resp 16 07/12/22 13:59 BP 114/63 07/12/22 11:29 Pulse Ox 98 07/12/22 13:59 O2 Del Method Nasal Cannula 07/12/22 13:11 O2 Flow Rate 3 07/12/22 13:11 Discharge Plan Discharge Patient Disposition: Home Condition: Stable Prescriptions: New prednisone 20 mg tablet 20 mg PO DAILY 5 Days Qty: 5 0RF levofloxacin 750 mg Tablet 750 mg PO DAILY 5 Days Qty: 5 0RF benzonatate 100 mg Capsule 100 mg PO TID PRN (Reason: Cough) 7 Days Qty: 20 0RF Continued rosuvastatin 40 mg tablet 40 mg PO DAILY@20 (DME) Diabetic Shoes See Rx Instructions .Route .MEDSUPPLY Qty: 1 0RF Rx Instructions: As directed albuterol sulfate 90 mcg/actuation HFA aerosol inhaler 1 puff INHALATION Q6H PRN (Reason: Shortness Of Breath) Qty: 8.5 3RF Cough Drops See Rx Instructions .ROUTE .COMPLEX Rx Instructions: may keep at bedside ondansetron 4 mg tablet,disintegrating 4 mg PO Q6H PRN (Reason: nausea and vomiting) Qty: 14 0RF Myrbetriq 25 mg tablet extended release 24 hr 25 mg PO DAILY@0700 promethazine-DM 6.25-15 mg/5 mL Syrup 5 ml PO Q6H PRN (Reason: Cough) Ozempic 0.25 mg or 0.5 mg(2 mg/1.5 mL) Pen Injector 0.5 mg SUBCUT Q7D Rx Instructions: on mondays hydroxyzine HCl 25 mg Tablet 25 mg PO Q8H PRN (Reason: Anxiety) fluoride (sodium) [SF 5000 Plus] 1.1 % Cream See Rx Instructions .ROUTE .COMPLEX Rx Instructions: brush on teeth bid with use of regular tooth paste do not eat or drink 30 mins after (use at 07:00 & 20:00) aspirin 81 mg tablet,delayed release (DR/EC) 81 mg PO DAILY@07 Acidophilus 175 mg PO DAILY@19 loperamide 2 mg Tablet 2 mg PO QID PRN (Reason: Diarrhea) pantoprazole 40 mg tablet,delayed release (DR/EC) 40 mg PO DAILY@07 insulin aspart U-100 [Novolog U-100 Insulin aspart] 100 unit/mL solution See Rx Instructions .ROUTE .COMPLEX Rx Instructions: PER SLIDING SCALE- CHECK BS AC MEALS AND HS BEFORE SLIDING SCALE @ 05:30,11:00,16:00,20:00 150-200=0 units 201-250=2 units 251-300=4 units 301-350=6 units 351-400=8 units Debrox 6.5 % Drops See Rx Instructions .ROUTE .COMPLEX Rx Instructions: 5-10 GTTS EACH EAR MONTHLY. Flonase Sensimist 27.5 mcg/actuation [place],Suspension 1 spray INTRANASAL DAILY@0700 roflumilast [Daliresp] 500 mcg tablet 500 mcg PO DAILY@0700 Trelegy Ellipta 100-62.5-25 mcg blister with device 1 inh inhalation DAILY@07 acetaminophen [Tylenol Extra Strength] 500 mg Tablet 1,000 mg PO Q4H MDD 8 tabs PRN (Reason: Pain) magnesium hydroxide [Milk of Magnesia] 400 mg/5 mL Suspension See Rx Instructions .ROUTE .COMPLEX Rx Instructions: 30ML PO ONCE DAILY PRN IF NO BM FOR 3 DAYS bisacodyl [Dulcolax (bisacodyl)] 10 mg Suppository 10 mg NH DAILY PRN (Reason: Constipation) Rx Instructions: IF NO BM FROM MOM, IF CAN'T TAKE PO & NO RESULTS OF M.O.M. Fleet Enema 19-7 gram/118 mL Enema 118 ml NH DAILY PRN (Reason: Constipation) Rx Instructions: IF NO RESUTLS FROM M.O.M. gabapentin 300 mg capsule 300 mg PO BID@0700,1999 bisacodyl [Dulcolax (bisacodyl)] 5 mg Tablet,Delayed Release (Dr/Ec) 10 mg PO DAILY PRN (Reason: Constipation) melatonin 5 mg Tablet 5 mg PO BEDTIME@1999 venlafaxine 75 mg Capsule,Extended Release 24hr 75 mg PO DAILY@0700 Saline Nasal 0.65 % Aerosol,[place] See Rx Instructions .ROUTE .COMPLEX Rx Instructions: SQUEEZE INTO DRY NOSTRILS BID THEN FOLLOW WITH BACTROBAN. USE AT 0700 AND 1999 levetiracetam 500 mg tablet See Rx Instructions .ROUTE .COMPLEX Rx Instructions: 500mg po qam @07:00 and 1000mg po daily@19:00 tramadol 50 mg tablet 50 mg PO Q8H PRN (Reason: pain) Qty: 10 0RF zinc acetate 50 mg (zinc) Capsule 50 mg PO DAILY@07 bumetanide 0.5 mg tablet 0.5 mg PO DAILY@07 ipratropium-albuterol 0.5 mg-3 mg(2.5 mg base)/3 mL Solution For Nebulization 3 ml INHALATION Q4H PRN (Reason: Shortness Of Breath) carboxymethylcellulose sodium [Refresh Tears] 0.5 % Drops 1 - 2 drp ophthalmic (eye) .EVERY 2 HOURS PRN (Reason: Dry Eye(S)) clotrimazole 1 % Cream See Rx Instructions .ROUTE .COMPLEX Rx Instructions: apply topically to scales in right foot lactulose 10 gram/15 mL solution 10 g PO DAILY PRN (Reason: constipation) Qty: 473 0RF cholecalciferol (vitamin D3) [Vitamin D3] 50 mcg (2,000 unit) Capsule 50 mcg PO DAILY@07 Jardiance 25 mg Tablet 25 mg PO DAILY@07 sennosides-docusate sodium [Senna-S] 8.6-50 mg tablet 1 tab-cap PO DAILY@ naproxen sodium 220 mg Tablet 220 mg PO BID PRN (Reason: Pain) oxycodone 5 mg tablet 5 mg PO Q12H PRN (Reason: Pain) terbinafine HCl 1 % Cream 1 applic TOPICAL BID@ triamcinolone acetonide 0.1 % ointment 1 applic TOPICAL BID@, lidocaine 5 % Adhesive Patch,Medicated 1 patch TOPICAL DAILY PRN (Reason: Pain) Rx Instructions: leave on most painful area for up to 12 hrs then off for 12 hours PreserVision AREDS [id number] capsule 1 cap PO BID@, ammonium lactate 12 % cream 1 applic topical DAILY@20 Tresiba FlexTouch U-100 100 unit/mL (3 mL) Insulin Pen 10 unit SUBCUT BEDTIME Discharge Orders: Discharge Order (Routine); Ordered 07/12/22 Ordered By: Beltran Fleming Referrals: Tashi Acosta MD [Primary Care Provider] - 07/17/22 10:40 am Patient Instructions: COPD, Prednisone (By mouth), Levofloxacin (By mouth), COPD Stoplight Discharge Attestations Time Spent in Discharge Care*: less than 30 min Quality Metrics Clinical Quality Measures [ No reported AMI, CVA or VTE this stay] Coding Level of Care Code Acute Code for Chg Fwd Diagnoses Congestive heart failure I50.9 Acute exacerbation of chronic obstructive airways disease J44.1 Type 2 diabetes mellitus E11.9 Moderate to severe mitral regurgitation I34.0
== END 2022-07-12 14:00 | disposition home or self-care (01) | DRG 191 ==
LOC: ER 14:35 → MEDSURG 14:54
PROVIDERS: Student in an Organized Health Care Education/Training Program; Admitting Provider Student in an Organized Health Care Education/Training Program; Emergency Provider Emergency Medicine; PCP Family Medicine; Visit Provider Internal Medicine
DX: J44.0 Chronic obstructive pulmonary disease with (acute) lower respiratory infection (principal); E66.2 Morbid (severe) obesity with alveolar hypoventilation; I42.8 Other cardiomyopathies; I50.32 Chronic diastolic (congestive) heart failure; J96.12 Chronic respiratory failure with hypercapnia; J96.11 Chronic respiratory failure with hypoxia; Z68.41 Body mass index [BMI] 40.0-44.9, adult; J44.1 Chronic obstructive pulmonary disease with (acute) exacerbation; J20.9 Acute bronchitis, unspecified; I11.0 Hypertensive heart disease with heart failure; E11.9 Type 2 diabetes mellitus without complications; Z79.51 Long term (current) use of inhaled steroids; Z79.82 Long term (current) use of aspirin; Z79.4 Long term (current) use of insulin; Z79.891 Long term (current) use of opiate analgesic; I34.0 Nonrheumatic mitral (valve) insufficiency; Z88.0 Allergy status to penicillin; Z88.2 Allergy status to sulfonamides; Z88.8 Allergy status to other drugs, medicaments and biological substances; F32.A Depression, unspecified; F17.210 Nicotine dependence, cigarettes, uncomplicated
CPT/HCPCS: 36415; 36416; 71045; 80053; 81001; 82962; 83880; 84484; 85025; 85378; 87086; 87486; 87581; 87633; 93005; 94640; 96372; 96374; 99285; J1650; J1815; J1940; J2920; J2930; J7626

== ENCOUNTER → 2022-07-31 09:17 | Outpatient (BNVA) | payer MEDICARE, MEDICAID, SELFPAY | PROVIDERS: PCP Family Medicine; Visit Provider Podiatrist Foot & Ankle Surgery | DX: I73.9 Peripheral vascular disease, unspecified (principal); G62.9 Polyneuropathy, unspecified; B35.1 Tinea unguium; L85.3 Xerosis cutis | CPT/HCPCS: 11721 ==

== ENCOUNTER 2022-09-26 13:08 | Outpatient (CLI) | payer MEDICARE, MEDICAID, SELFPAY ==
--- NOTE | 2022-09-26 13:15 | XR_ITS ---
WS: [id number] SCREENING DEXA SCAN [facility] CLINICAL INFORMATION: POSTMENOPAUSAL COMPARISON: 2020 FINDINGS: The L1-L4 bone mineral density measures 1.032 g/cm2. This corresponds to a T score score of -1.2 and Z score of -0.4. Left femoral neck bone mineral density measures 0.710 g/cm2. This corresponds to a T score of -2.4 an d Z score of -1.6. Right femoral neck bone mineral density measures 0.781 g/cm2. This corresponds to a T score -1.8of an d Z score of -1.0. Mean femoral neck bone mineral density measures 0.746 g/cm2. This corresponds to a T score of -2.1 an d Z score of -1.3. XR/XR DEXA axial skeleton* [id number] IMPRESSION: Osteopenia lumbar spine. Osteopenia femoral necks approaching osteoporosis. Patient's FRAX calculated 10 year probability for major osteoporotic fracture i s 27.7 % and osteoporotic hip fracture is 12.5%. Since 2020, Bone mineral density in the lumbar spine has increased 1.4% and bone mineral de nsity in the femoral necks is increased 3.0%
== END 2022-09-26 13:09 | disposition home or self-care (01) ==
PROVIDERS: PCP Family Medicine; Visit Provider Family Medicine
DX: Z13.820 Encounter for screening for osteoporosis (principal); Z78.0 Asymptomatic menopausal state; M85.89 Other specified disorders of bone density and structure, multiple sites
CPT/HCPCS: 77080

== ENCOUNTER 2022-11-11 19:25 | Emergency (ER) | payer MEDICARE, MEDICAID, SELFPAY ==
[2022-11-11 19:40] VITALS: BP 121/73; PULSE 82; RESP 20; TEMP 36.9; O2SAT 93
--- NOTE | 2022-11-11 20:34 | XRR_ITS ---
PROCEDURE INFORMATION: Exam: XR Chest Exam date and time: 11/11/2022 9:12 PM Age: 67 years old Clinical indication: Shortness of breath; Additional info: SOB TECHNIQUE: Imaging protocol: Radiologic exam of the chest. Views: 1 view. COMPARISON: CR (CHEST, ) 07/09/2022 1:25 PM FINDINGS: Lungs: Vascular congestion. Mild interstitial prominence in both lungs. No consolidation. Pleural spaces: Unremarkable. No pleural effusion. No pneumothorax. Heart/Mediastinum: The heart size is upper normal. Bones/joints: Unremarkable. XR/XR chest 1V portable [id number] IMPRESSION: Vascular congestion with probable mild interstitial pulmonary edema.
--- NOTE | 2022-11-11 20:41 | ED_ITS ---
HPI - SOB/Dyspnea General: Chief Complaint: Shortness of Breath/Dyspnea Stated Complaint: SOB Time Seen by Provider: 11/11/22 19:46 Source: patient History of Present Illness: HPI Narrative: 67-year-old female with a history of COPD and mitral valve prolapse. She tells me she does not have a history of coronary disease. She presents with chest tightness, and shortness of breath with wheezing worsening over the last week. She has had a cough productive of white to green to yellow sputum. No fever. Mild increase in ankle swelling. She has been using her breathing treatments without much improvement. She notes that other members of the home have been sick. MD elicited complaint: shortness of breath and cough Associated symptoms: Reports chest congestion; Deny abdominal pain, chest pain, fever(s), nausea, palpitations or vomiting Review of Systems Const: Denies: fever(s) or chills Eyes: Denies: change in vision ENMT: Denies: throat pain Card: Denies: chest pain or palpitations Resp: Reports: dyspnea, productive cough, wheezing and chest congestion GI: Denies: abdominal pain, nausea or vomiting : Denies: flank pain Skin/Breast: Denies: rash PFSH ED PFSH: Medical History Acute exacerbation of chronic obstructive airways disease Acute on chronic diastolic (congestive) heart failure Benign essential hypertension with target blood pressure below 140/90 Chronic respiratory failure with hypoxia and hypercapnia COPD (chronic obstructive pulmonary disease) Depression Diastolic congestive heart failure Hyperlipidemia Hypertension Moderate to severe mitral regurgitation Nonischemic cardiomyopathy Obesity Obesity hypoventilation syndrome Obstructive sleep apnea Pulmonary hypertension Restrictive lung disease Seizure disorder Sleep apnea Small bowel obstruction T12 vertebral fracture Tricuspid regurgitation Type 2 diabetes mellitus Surgical History H/O mitral valve replacement History of Ulnar nerve compression Family History Brother CAD (coronary artery disease) Sister CAD (coronary artery disease) Grandmother Diabetes Mother Stroke Denies family history of Clotting disorder Dementia Chronic kidney disease (CKD) Suicide Anesthesia complication Bleeding disorder Lung disease Cancer Social History Smoking and tobacco status: current every day smoker cigarettes Packs smoked per day: 0.25 Years cigarettes smoked: 33 [ Other cigarette details: Hx of 1PPD x 30 Years, started 1991] Second hand smoke exposure: Yes Smoking risk assessment/counseling performed?: Yes Alcohol intake: never Counseling given: No Substance/Drug Use: never Counseling given: No Caregiver/support person: Yes Lives independently: No Housing: Assisted Living Facility Marital status: / Current occupational status: retired and disabled Do you think of yourself as: Straight/Heterosexual Current gender identity: Female Physical Exam Const: COMMON NORMALS: no acute distress GENERAL APPEARANCE: cooperative, ill appearing (Mildly) and frail appearing HENMT: COMMON NORMALS: normocephalic and atraumatic HEAD & SCALP: normocephalic and atraumatic Eye: COMMON NORMALS: Equal, round and reactive pupils present and EOMs intact bilaterally PUPIL: Yes Equal, round and reactive pupils present Neck/C-Spine: GENERAL: Yes trachea midline Chest: CHEST: Yes Symmetrical chest wall rise Resp: EFFORT & INSPECTION: Yes tachypneic and No stridor AUSCULTATION: wheezes and diminished lung sounds Cardio: COMMON NORMALS: regular rate and regular rhythm RATE: regular rate RHYTHM: regular rhythm GI: COMMON NORMALS: Normal to inspection, nondistended, normoactive bowel sounds present and Soft to palpation PALPATION: Yes Soft to palpation Extremity: COMMON NORMALS: no pedal edema Course Vital Signs: Vital signs: Vital Signs Temperature 98.5 F 11/11/22 19:40 Pulse Rate 84 11/11/22 22:47 Respiratory Rate 26 H 11/11/22 22:47 Blood Pressure 132/78 11/11/22 22:47 Pulse Oximetry 98 11/11/22 21:19 Oxygen Delivery Me thod Nasal Cannula 11/11/22 21:19 Oxygen Flow Rate 4 11/11/22 21:19 MDM - SOB/Dyspnea Medical Decision Making Notable for potential of mild interstitial pulmonary edema although her BNP is only 293, and the lowest its been in quite a while. Blood gas is not terribly remarkable. She is COVID-negative. She will be placed on methylprednisolone, doxycycline, and scheduled nebulizer treatments at home. She has oxygen at home. She is told she may go up to 4 L o oxygen at home for shortness of breath. To return for worsening symptoms. Close outpatient follow-up. f Lab Data 08/26/23 19:12 11/11/22 19:12 Labs/Radiology: Radiology Impressions Chest X-Ray 11/11/22 20:34 IMPRESSION: Vascular congestion with probable mild interstitial pulmonary edema. Laboratory Results WBC 10.30 10^3/uL (3.29-11.43) 11/11/22 19:12 RBC 6.00 10^6/uL (3.85-5.65) H 11/11/22 19:12 Hgb 15.70 g/dL (11.27-16.99) 11/11/22 19:12 Hct 52.0 % (36-47) H 11/11/22 19:12 MCV 86.7 fl (85-98) 11/11/22 19:12 MCH 26.2 pg (27-33) L 11/11/22 19:12 MCHC 30.2 g/dL (30-55) 11/11/22 19:12 RDW 16.2 % (12.1-15.1) H 11/11/22 19:12 Plt Count 209 10^3/cmm (157-399) 11/11/22 19:12 MPV 12.4 fL (7.4-10.4) H 11/11/22 19:12 Neut % (Auto) 57.9 % 11/11/22 19:12 Lymph % (Auto) 20.0 % 11/11/22 19:12 [place] % (Auto) 9.2 % 11/11/22 19:12 Eos % (Auto) 12.1 % 11/11/22 19:12 Baso % (Auto) 0.5 % 11/11/22 19:12 Neut # (Auto) 5.96 10^3/uL (1.8-7.7) 11/11/22 19:12 Lymph # (Auto) 2.1 10^3/uL (0.8-4.8) 11/11/22 19:12 [place] # (Auto) 1.0 10^3/uL (0.2-0.9) H 11/11/22 19:12 Eos # (Auto) 1.3 10^3/uL (0.0-0.8) H 11/11/22 19:12 Baso # (Auto) 0.1 10^3/uL (0.0-0.1) 11/11/22 19:12 Nucleated RBC % (auto) 0 % 11/11/22 19:12 Nucleated RBCs # 0.0 /100WBC 11/11/22 19:12 Specimen Type Arterial 11/11/22 20:55 Sample Site Brachial, right 11/11/22 20:55 ABG pH 7.39 (7.35-7.45) 11/11/22 20:55 ABG pCO2 54.0 mmHg (35-45) H 11/11/22 20:55 ABG pO2 68.4 mmHg (80.0-100.0) L 11/11/22 20:55 ABG HCO3 32.5 mmol/L (22-26) H 11/11/22 20:55 ABG Base Excess 5.8 mmol/L (-2.0-2.0) H 11/11/22 20:55 Miguel Test N/a 11/11/22 20:55 Hematocrit 46.9 % (37-47) 11/11/22 20:55 Hgb O2 Saturation 91.2 % (95-100) L 11/11/22 20:55 Carboxyhemoglobin 3.2 %THgb (0.4-20.1) 11/11/22 20:55 Methemoglobin 0.3 % (0.4-1.5) L 11/11/22 20:55 Total Hemoglobin 15.3 g/dL (12-16) 11/11/22 20:55 O2 Delivery Device Nc 11/11/22 20:55 O2 Liters/Min 4.0 % 11/11/22 20:55 FiO2 36.0 % 11/11/22 20:55 Casino Attendant ID [email or web address] 11/11/22 20:55 Sodium 141 mmol/L (136-145) 11/11/22 19:12 Potassium 4.6 mmol/L (3.5-5.1) 11/11/22 19:12 Chloride 97 mmol/L (98-107) L 11/11/22 19:12 Carbon Dioxide 34 mmol/L (22-29) H 11/11/22 19:12 Anion Gap 14.6 (5-19) 11/11/22 19:12 BUN 18 mg/dL (8-23) 11/11/22 19:12 Creatinine 0.9 mg/dL (0.5-0.9) 11/11/22 19:12 GFR Calculation 62.1 mL/min (90-130) L 11/11/22 19:12 Glucose 150 mg/dL (65-115) H 11/11/22 19:12 Calculated Osmolality 297 mOsm/kg (285-295) H 11/11/22 19:12 Lactic Acid 1.8 mmol/L (0.5-2.2) 11/11/22 21:02 Calcium 11.0 mg/dL (8.5-10.5) H 11/11/22 19:12 Magnesium 2.3 mg/dL (1.7-2.3) 11/11/22 19:12 Total Bilirubin 0.3 mg/dL (0.15-1.2) 11/11/22 19:12 AST 23 U/L (0-32) 11/11/22 19:12 ALT 14 U/L (0-33) 11/11/22 19:12 Alkaline Phosphatase 136 U/L (35-105) H 11/11/22 19:12 NT-Pro-B Natriuret Pep 293 pg/mL (0-125) H 11/11/22 19:12 Total Protein 8.1 g/dL (6.6-8.7) 11/11/22 19:12 Albumin 4.3 g/dL (3.5-5.2) 11/11/22 19:12 Globulin 3.8 g/dL (1.3-4.6) 11/11/22 19:12 SARS-CoV-2 Ag (Rapid) negative (Negative) 11/11/22 20:40 Discharge Plan Discharge Patient Disposition: Home Clinical Impression: COPD exacerbation Condition: Stable Prescriptions: New Medrol (Mikie) 4 mg tablets,dose pack See Rx Instructions .ROUTE .COMPLEX Qty: 21 0RF Rx Instructions: orally per package directions doxycycline hyclate 100 mg tablet 100 mg PO BID 7 Days Qty: 14 0RF No Action rosuvastatin 40 mg tablet 40 mg PO DAILY@20 (DME) Diabetic Shoes See Rx Instructions .Route .MEDSUPPLY Qty: 1 0RF Rx Instructions: As directed albuterol sulfate 90 mcg/actuation HFA aerosol inhaler 1 puff INHALATION Q6H PRN (Reason: Shortness Of Breath) Qty: 8.5 3RF Cough Drops See Rx Instructions .ROUTE .COMPLEX Rx Instructions: may keep at bedside ondansetron 4 mg tablet,disintegrating 4 mg PO Q6H PRN (Reason: nausea and vomiting) Qty: 14 0RF Myrbetriq 25 mg tablet extended release 24 hr 25 mg PO DAILY@0700 promethazine-DM 6.25-15 mg/5 mL Syrup 5 ml PO Q6H PRN (Reason: Cough) Ozempic 0.25 mg or 0.5 mg(2 mg/1.5 mL) Pen Injector 0.5 mg SUBCUT Q7D Rx Instructions: on mondays hydroxyzine HCl 25 mg Tablet 25 mg PO Q8H PRN (Reason: Anxiety) fluoride (sodium) [SF 5000 Plus] 1.1 % Cream See Rx Instructions .ROUTE .COMPLEX Rx Instructions: brush on teeth bid with use of regular tooth paste do not eat or drink 30 mins after (use at 07:00 & 20:00) aspirin 81 mg tablet,delayed release (DR/EC) 81 mg PO DAILY@07 Acidophilus 175 mg PO DAILY@19 loperamide 2 mg Tablet 2 mg PO QID PRN (Reason: Diarrhea) pantoprazole 40 mg tablet,delayed release (DR/EC) 40 mg PO DAILY@07 insulin aspart U-100 [Novolog U-100 Insulin aspart] 100 unit/mL solution See Rx Instructions .ROUTE .COMPLEX Rx Instructions: PER SLIDING SCALE- CHECK BS AC MEALS AND HS BEFORE SLIDING SCALE @ 05:30,11:00,16:00,20:00 150-200=0 units 201-250=2 units 251-300=4 units 301-350=6 units 351-400=8 units Debrox 6.5 % Drops See Rx Instructions .ROUTE .COMPLEX Rx Instructions: 5-10 GTTS EACH EAR MONTHLY. Flonase Sensimist 27.5 mcg/actuation Onward,Suspension 1 spray INTRANASAL DAILY@0700 roflumilast [Daliresp] 500 mcg tablet 500 mcg PO DAILY@0700 Trelegy Ellipta 100-62.5-25 mcg blister with device 1 inh inhalation DAILY@07 acetaminophen [Tylenol Extra Strength] 500 mg Tablet 1,000 mg PO Q4H MDD 8 tabs PRN (Reason: Pain) magnesium hydroxide [Milk of Magnesia] 400 mg/5 mL Suspension See Rx Instructions .ROUTE .COMPLEX Rx Instructions: 30ML PO ONCE DAILY PRN IF NO BM FOR 3 DAYS bisacodyl [Dulcolax (bisacodyl)] 10 mg Suppository 10 mg HI DAILY PRN (Reason: Constipation) Rx Instructions: IF NO BM FROM MOM, IF CAN'T TAKE PO & NO RESULTS OF M.O.M. Fleet Enema 19-7 gram/118 mL Enema 118 ml HI DAILY PRN (Reason: Constipation) Rx Instructions: IF NO RESUTLS FROM M.O.M. gabapentin 300 mg capsule 300 mg PO BID@0700,2000 bisacodyl [Dulcolax (bisacodyl)] 5 mg Tablet,Delayed Release (Dr/Ec) 10 mg PO DAILY PRN (Reason: Constipation) melatonin 5 mg Tablet 5 mg PO BEDTIME@2000 venlafaxine 75 mg Capsule,Extended Release 24hr 75 mg PO DAILY@0700 Saline Nasal 0.65 % Aerosol,Onward See Rx Instructions .ROUTE .COMPLEX Rx Instructions: SQUEEZE INTO DRY NOSTRILS BID THEN FOLLOW WITH BACTROBAN. USE AT 0700 AND 1999 levetiracetam 500 mg tablet See Rx Instructions .ROUTE .COMPLEX Rx Instructions: 500mg po qam @07:00 and 1000mg po daily@19:00 tramadol 50 mg tablet 50 mg PO Q8H PRN (Reason: pain) Qty: 10 0RF zinc acetate 50 mg (zinc) Capsule 50 mg PO DAILY@07 bumetanide 0.5 mg tablet 0.5 mg PO DAILY@07 ipratropium-albuterol 0.5 mg-3 mg(2.5 mg base)/3 mL Solution For Nebulization 3 ml INHALATION Q4H PRN (Reason: Shortness Of Breath) carboxymethylcellulose sodium [Refresh Tears] 0.5 % Drops 1 - 2 drp ophthalmic (eye) .EVERY 2 HOURS PRN (Reason: Dry Eye(S)) clotrimazole 1 % Cream See Rx Instructions .ROUTE .COMPLEX Rx Instructions: apply topically to scales in right foot lactulose 10 gram/15 mL solution 10 g PO DAILY PRN (Reason: constipation) Qty: 473 0RF cholecalciferol (vitamin D3) [Vitamin D3] 50 mcg (2,000 unit) Capsule 50 mcg PO DAILY@07 Jardiance 25 mg Tablet 25 mg PO DAILY@07 sennosides-docusate sodium [Senna-S] 8.6-50 mg tablet 1 tab-cap PO DAILY@07 naproxen sodium 220 mg Tablet 220 mg PO BID PRN (Reason: Pain) oxycodone 5 mg tablet 5 mg PO Q12H PRN (Reason: Pain) terbinafine HCl 1 % Cream 1 applic TOPICAL BID@,19 triamcinolone acetonide 0.1 % ointment 1 applic TOPICAL BID@07,20 lidocaine 5 % Adhesive Patch,Medicated 1 patch TOPICAL DAILY PRN (Reason: Pain) Rx Instructions: leave on most painful area for up to 12 hrs then off for 12 hours PreserVision AREDS 14,320-226-200 [id number] capsule 1 cap PO BID@07,19 ammonium lactate 12 % cream 1 applic topical DAILY@20 Tresiba FlexTouch U-100 100 unit/mL (3 mL) Insulin Pen 10 unit SUBCUT BEDTIME Discharge Orders: Discharge ED (Routine); Ordered 11/11/22 Ordered By: Calin Bowen Referrals: Tashi Acosta MD [Primary Care Provider] - 1-3 days Patient Instructions: COPD (Chronic Obstructive Pulmonary Disease) (ED), Opioid Safety, Pain Management Activity Restrictions/Additional Instructions: Medications as directed. Use your nebulizer machine at home every 4 hours while awake scheduled for the first 48 hours, then as needed to follow. You may go up to 4 L of oxygen at home as needed for symptoms of shortness of breath. Return immediately for shortness of breath despite treatment, fever despite 2-3 doses of antibiotics, worsening chest discomfort, any other concerning symptoms. Follow-up with your doctor next week. Coding Level of Care Code ED Policy Change Clerk for Kanchan Abdi
[2022-11-11 20:44] LABS: Basophils # 0.1 10^3/uL (0.0-0.1); Basophils % 0.5 %; Eosinophils # 1.3 10^3/uL (0.0-0.8); Eosinophils % 12.1 %; Lymphocytes # 2.1 10^3/uL (0.8-4.8); Mean Corpuscular HGB Conc 30.2 g/dL (30-55); Mean Corpuscular Hemoglobin 26.2 pg (27-33); Mean Corpuscular Volume 86.7 fl (85-98); Mean Platelet Volume 12.4 fL (7.4-10.4); Monocytes % 9.2 %; Neutrophils # 5.96 10^3/uL (1.8-7.7); Neutrophils % 57.9 %; Nucleated Red Blood Cells % 0 %; Platelet Count 209 10^3/cmm (157-399); Red Cell Distribution Width 16.2 % (12.1-15.1)
[2022-11-11 20:45] VITALS: PULSE 81; RESP 22; O2SAT 94
[2022-11-11] MEDS: ipratropium-albuterol 3 mL Neb INHALATION (20:45)
[2022-11-11] MEDS: dexamethasone 4 mg/mL INJ 8 MG IVP (20:47)
[2022-11-11 20:48] VITALS: PULSE 81; RESP 22; O2SAT 97
[2022-11-11 21:04] LABS: ABG PH Result 7.39 (7.35-7.45); Arterial Blood Gas Hematocrit 46.9 % (37-47); Base Excess ABG 5.8 mmol/L (-2.0-2.0); Blood Gas Sample Site Brachial, right; Blood Gas Sample Type Arterial; Carboxyhemoglobin 3.2 %THgb (0.4-20.1); HCO3 ABG 32.5 mmol/L (22-26); HGB O2 Sat 91.2 % (95-100); Methemoglobin 0.3 % (0.4-1.5); Oxygen Device NC; PO2 ABG 68.4 mmHg (80.0-100.0); Total Hemoglobin 15.3 g/dL (12-16)
[2022-11-11 21:19] VITALS: BP 133/71; PULSE 93; RESP 28; O2SAT 98
[2022-11-11 21:23] LABS: Alanine Aminotransferase 14 U/L (0-33); Albumin Level 4.3 g/dL (3.5-5.2); Alkaline Phosphatase 136 U/L (35-105); Blood Urea Nitrogen 18 mg/dL (8-23); Carbon Dioxide 34 mmol/L (22-29); Chloride 97 mmol/L (98-107); Globulin 3.8 g/dL (1.3-4.6); Glomerular Filtration Rate 62.1 mL/min (90-130); Glucose 150 mg/dL (65-115); Magnesium 2.3 mg/dL (1.7-2.3); NT Pro B Type Natriuretic Pept 293 pg/mL (0-125); Osmolality Calculated 297 mOsm/kg (285-295); Sodium 141 mmol/L (136-145); Total Bilirubin 0.3 mg/dL (0.15-1.2); Total Protein 8.1 g/dL (6.6-8.7)
[2022-11-11 21:25] LABS: SARS Covid-2 Antigen negative (Negative)
[2022-11-11 21:30] LABS: Anion Gap 14.6 (5-19); Aspartate Amino Transferase 23 U/L (0-32); Potassium 4.6 mmol/L (3.5-5.1)
[2022-11-11 21:37] LABS: Lactic Sepsis W/Reflex 1.8 mmol/L (0.5-2.2)
[2022-11-11 22:47] VITALS: BP 132/78; PULSE 84; RESP 26
== END 2022-11-11 22:50 | disposition home or self-care (01) ==
PROVIDERS: Emergency Provider Emergency Medicine; PCP Family Medicine
DX: J44.1 Chronic obstructive pulmonary disease with (acute) exacerbation (principal); Z79.82 Long term (current) use of aspirin; Z79.4 Long term (current) use of insulin; Z20.822 Contact with and (suspected) exposure to COVID-19; I11.0 Hypertensive heart disease with heart failure; I50.30 Unspecified diastolic (congestive) heart failure; E78.5 Hyperlipidemia, unspecified; E11.9 Type 2 diabetes mellitus without complications
CPT/HCPCS: 36415; 36600; 71045; 80053; 82805; 83605; 83735; 83880; 85025; 87040; 87426; 94640; 96374; 99285; J1100

== ENCOUNTER → 2022-11-23 09:39 | Outpatient (BNVA) | payer MEDICARE, MEDICAID, SELFPAY | PROVIDERS: PCP Family Medicine; Visit Provider Internal Medicine Pulmonary Disease | DX: J44.9 Chronic obstructive pulmonary disease, unspecified (principal); R91.8 Other nonspecific abnormal finding of lung field; J96.11 Chronic respiratory failure with hypoxia; J96.12 Chronic respiratory failure with hypercapnia; F17.210 Nicotine dependence, cigarettes, uncomplicated; J98.8 Other specified respiratory disorders | CPT/HCPCS: 99214 ==

== ENCOUNTER 2023-01-21 13:07 | Emergency (ER) | payer MEDICARE, MEDICAID, SELFPAY ==
[2023-01-21 13:18] VITALS: BP 154/82; PULSE 97; TEMP 36.6; O2SAT 94; BMI 42.9
--- NOTE | 2023-01-21 13:20 | ECG_ITS ---
[facility] Test Date: 2023-01-21 Pat Name: Yaquelin Loera Department: Room: Gender: Female Cell Support Operator: : [id number] Requested By: Eligio Andrews Order Number: [id number] José MD: Rosa Gayle M.D. Measurements Intervals [place] Rate: 94 P: 55 NV: 176 QRS: 81 QRSD: 106 T: 57 QT: 375 QTc: 470 Interpretive Statements SINUS RHYTHM POSSIBLE LEFT ATRIAL ENLARGEMENT [-0.1mV P-WAVE IN V1/V2] Compared to ECG 07/10/2022 01:16:29 Right-axis deviation no longer present Electronically Signed On 01-21-2023 22:33:08 DEVELOPMENT WRITER by Rosa Gayle M.D. [id number]
--- NOTE | 2023-01-21 13:25 | XRR_ITS ---
PROCEDURE INFORMATION: Exam: XR Chest Exam date and time: 01/21/2023 1:57 PM Age: 67 years old Clinical indication: Shortness of breath TECHNIQUE: Imaging protocol: Radiologic exam of the chest. Views: 2 views. COMPARISON: CR (CHEST, ) 11/11/2022 9:12 PM FINDINGS: Lungs: Right lower lobe infiltrate. Pulmonary venous hypertension without edema. Pleural spaces: Unremarkable. No pleural effusion. No pneumothorax. Heart/Mediastinum: Unremarkable. No cardiomegaly. Bones/joints: Unremarkable. XR/XR chest 2V* [id number] IMPRESSION: Right lower lobe infiltrate.
--- NOTE | 2023-01-21 13:31 | W.ED.SOB ---
Documented by User: BRANDEN Marquez 01/21/23 17:39 HPI - SOB/Dyspnea General: Chief Complaint: Shortness of Breath/Dyspnea Stated Complaint: SOB Time Seen by Provider: 01/21/23 13:10 History of Present Illness: HPI Narrative: Patient is a 67-year-old female with a past medical history significant for COPD, congestive heart failure, hypertension, type 2 diabetes mellitus, mitral valve prolapse, and depression who presents to the emergency department for evaluation of shortness of breath. Patient reports that 3 days ago she started to develop diarrhea. Yesterday the patient became short of breath. Dyspnea is worse on exertion. Patient does have a known history of COPD and chronically wears 2 L of nasal cannula oxygen at home. Patient states that she has also had a productive cough with green sputum production. Admits to subjective fevers but denies no temperature. Patient reports that she has been taking her nebulizer at home 4 times daily with little relief of symptoms. Admits to palpitations but denies chest pain. She denies nausea, vomiting, lightheadedness, dizziness, diaphoresis, melena, hematochezia, dysuria, hematuria, headache, sore throat, otalgia, otorrhea, or any other associated symptoms. No other complaints at this time. Associated symptoms: Reports fever(s) and palpitations; Deny abdominal pain, chest pain, dizziness, extremity pain, lightheadedness, nausea, syncope or vomiting Review of Systems General: Reports: 10 or more systems reviewed and unremarkable except in HPI and below Const: Reports: fever(s) and chills; Denies: body aches Eyes: Denies: change in vision or blurry vision ENMT: Denies: throat pain, odynophagia, hoarseness, ear or mastoid pain or ear discharge Card: Reports: palpitations and dyspnea on exertion; Denies: chest pain, lightheadedness or syncope Resp: Reports: dyspnea and productive cough GI: Reports: diarrhea; Denies: abdominal pain, nausea, vomiting or constipation : Denies: flank pain, difficulty voiding, dysuria, urinary frequency or hematuria Musc: Denies: back pain, extremity pain or muscle weakness Skin/Breast: Denies: rash Neuro: Denies: headache(s), numbness in extremities or dizziness Psych: Denies: anxiety or depression PFS ED PFSH: Medical History Acute exacerbation of chronic obstructive airways disease Acute on chronic diastolic (congestive) heart failure Benign essential hypertension with target blood pressure below 140/90 Chronic respiratory failure with hypoxia and hypercapnia COPD (chronic obstructive pulmonary disease) Depression Diastolic congestive heart failure Hyperlipidemia Hypertension Moderate to severe mitral regurgitation Nonischemic cardiomyopathy Obesity Obesity hypoventilation syndrome Obstructive sleep apnea Pulmonary hypertension Restrictive lung disease Seizure disorder Sleep apnea Small bowel obstruction T12 vertebral fracture Tricuspid regurgitation Type 2 diabetes mellitus Surgical History H/O mitral valve replacement History of Ulnar nerve compression Family History Brother CAD (coronary artery disease) Sister CAD (coronary artery disease) Grandmother Diabetes Mother Stroke Denies family history of Clotting disorder Dementia Chronic kidney disease (CKD) Suicide Anesthesia complication Bleeding disorder Lung disease Cancer Social History Smoking and tobacco/nicotine status: current every day tobacco/nicotine user cigarettes Packs smoked per day: 0.25 Years cigarettes smoked: 33 [ Other cigarette details: Hx of 1PPD x 30 Years, started 1991] Second hand smoke exposure: Yes Alcohol intake: never Substance/Drug Use: never Caregiver/support person: Yes Lives independently: No Housing: Assisted Living Facility Marital status: / Current occupational status: retired and disabled Do you think of yourself as: Straight/Heterosexual Current gender identity: Female Physical Exam Const: COMMON NORMALS: no acute distress, patient oriented x3 and alert HENMT: COMMON NORMALS: normocephalic, atraumatic, moist oral mucous membranes and oropharynx normal HEAD & SCALP: normocephalic and atraumatic Eye: COMMON NORMALS: Equal, round and reactive pupils present, EOMs intact bilaterally and conjunctivae normal CONJUNCTIVA: Yes conjunctivae normal PUPIL: Yes Equal, round and reactive pupils present Neck/C-Spine: COMMON NORMALS: full ROM Chest: COMMONS NORMALS: normal inspection of the chest Resp: OTHER: Mild expiratory wheezing heard in the bilateral upper and lower lung [place]. Diminished breath sounds heard in the bilateral lower lung [place]. No intercostal retractions or accessory muscle use noted. Patient is on 2 L nasal cannula oxygen. Cardio: COMMON NORMALS: regular rate and regular rhythm RATE: regular rate RHYTHM: regular rhythm GI: COMMON NORMALS: Normal to inspection, nondistended, normoactive bowel sounds present, Soft to palpation and non-tender PALPATION: Yes Soft to palpation : COMMON NORMALS: Yes no CVA tenderness BLADDER/KIDNEY EXAM: Yes no CVA tenderness Back/Pelvis: COMMON NORMALS: no CVA tenderness Neuro: COMMON NORMALS: patient oriented x3 SENSORIUM/ORIENTATION: Yes alert OTHER: Patient is alert and oriented x4. No focal neurological deficits noted on examination. Sensation intact in bilateral upper and lower extremities. Course Vital Signs: Vital signs: Vital Signs Temperature 97.9 F 01/21/23 13:18 Pulse Rate 80 01/21/23 14:36 Respiratory Rate 20 H 01/21/23 14:05 Blood Pressure 133/79 01/21/23 14:36 Pulse Oximetry 97 01/21/23 14:36 Oxygen Delivery Me thod Room Air 01/21/23 14:36 Oxygen Flow Rate 3 01/21/23 14:05 MDM - SOB/Dyspnea Medical Decision Making Patient is a 67-year-old female with a past medical history significant for COPD, congestive heart failure, hypertension, type 2 diabetes mellitus, mitral valve prolapse, and depression who presents to the emergency department for evaluation of shortness of breath. On physical examination patient is nontoxic and in no acute distress. Vital signs remained stable throughout the ED course. Patient does wear nasal cannula oxygen at home for chronic hypoxia associated with her COPD. Patient did remain above 90% on 2 L of nasal cannula oxygen in the emergency department. Patient is afebrile. CBC showed no evidence of leukocytosis. CMP showed a glucose of 166. Patient is a known type II diabetic. BNP is 1939. Patient has a known history of CHF. Urinalysis showed no evidence of urinary tract infection. Influenza and COVID-19 negative. Initial troponin was 14. 2-hour troponin was 15.7 with a delta troponin of 1.7. EKG sinus rhythm. I do not think acute coronary syndrome is likely at this time. Chest x-ray showed a right lower lobe infiltrate. CT the abdomen pelvis without contrast showed no acute abnormalities. Based off history and physical examination I believe the patient symptoms are likely related to a pneumonia. I spoke with the hospitalist who did not think the patient required admission and recommended outpatient treatment with levofloxacin and prednisone. A prescription of prednisone and levofloxacin was sent to your pharmacy be picked up. First dose of levofloxacin given in the emergency department. Increase oral hydration. Cold-mist humidifier night. Continue to monitor oxygen saturations at home and return to the emergency department if it should drop below 90. Tylenol and Motrin as needed for fever and comfort. Call your primary care provider tomorrow with an update of your symptoms and to schedule appointment for further management/evaluation. Return to the emergency department for any rapid or worsening symptoms to include but not limited to chest pain, worsening shortness of breath, fevers, lightheadedness, dizziness, nausea, vomiting, or as needed. Patient was informed to watch her sugars while taking prednisone. Patient stated understanding of all discharge instructions was agreeable to plan of care. I discussed patient's history, exam, and all finding with Dr. Yi in the emergency department who agreed my assessment and plan. Differential diagnosis includes but is not limited to COPD exacerbation, CHF, pneumonia, acute coronary syndrome, arrhythmia, electrolyte abnormality Lab Data 01/21/23 16:34 01/21/23 14:21 Labs/Radiology: Radiology Impressions Chest X-Ray 01/21/23 13:25 IMPRESSION: Right lower lobe infiltrate. Abdomen/Pelvis CT 01/21/23 15:59 IMPRESSION: No acute findings. Laboratory Results WBC 9.81 10^3/uL (3.29-11.43) 01/21/23 16:34 RBC 5.50 10^6/uL (3.85-5.65) 01/21/23 16:34 Hgb 14.60 g/dL (11.27-16.99) 01/21/23 16:34 Hct 47.5 % (36-47) H 01/21/23 16:34 MCV 86.4 fl (85-98) 01/21/23 16:34 MCH 26.5 pg (27-33) L 01/21/23 16:34 MCHC 30.7 g/dL (30-55) 01/21/23 16:34 RDW 17.4 % (12.1-15.1) H 01/21/23 16:34 Plt Count 198 10^3/cmm (157-399) 01/21/23 16:34 MPV 11.3 fL (7.4-10.4) H 01/21/23 16:34 Neut % (Auto) 85.0 % 01/21/23 16:34 Lymph % (Auto) 7.0 % 01/21/23 16:34 [place] % (Auto) 3.5 % 01/21/23 16:34 Eos % (Auto) 3.7 % 01/21/23 16:34 Baso % (Auto) 0.4 % 01/21/23 16:34 Neut # (Auto) 8.34 10^3/uL (1.8-7.7) H 01/21/23 16:34 Lymph # (Auto) 0.7 10^3/uL (0.8-4.8) L 01/21/23 16:34 [place] # (Auto) 0.3 10^3/uL (0.2-0.9) 01/21/23 16:34 Eos # (Auto) 0.4 10^3/uL (0.0-0.8) 01/21/23 16:34 Baso # (Auto) 0.0 10^3/uL (0.0-0.1) 01/21/23 16:34 Nucleated RBC % (auto) 0 % 01/21/23 16:34 Nucleated RBCs # 0.0 /100WBC 01/21/23 16:34 Sodium 142 mmol/L (136-145) 01/21/23 14:21 Potassium 3.6 mmol/L (3.5-5.1) 01/21/23 14:21 Chloride 104 mmol/L (98-107) 01/21/23 14:21 Carbon Dioxide 28 mmol/L (22-29) 01/21/23 14:21 Anion Gap 13.6 (5-19) 01/21/23 14:21 BUN 14 mg/dL (8-23) 01/21/23 14:21 Creatinine 0.8 mg/dL (0.5-0.9) 01/21/23 14:21 GFR Calculation 71.1 mL/min (90-130) L 01/21/23 14:21 Glucose 166 mg/dL (65-115) H 01/21/23 14:21 POC Glucose 170 mg/dL (70-110) H 01/21/23 15:26 Calculated Osmolality 298 mOsm/kg (285-295) H 01/21/23 14:21 Calcium 8.9 mg/dL (8.5-10.5) 01/21/23 14:21 Total Bilirubin 0.3 mg/dL (0.15-1.2) 01/21/23 14:21 AST 14 U/L (0-32) 01/21/23 14:21 ALT 8 U/L (0-33) 01/21/23 14:21 Alkaline Phosphatase 153 U/L (35-105) H 01/21/23 14:21 Troponin T Baseline 14 ng/L (0-10) H 01/21/23 13:38 Troponin T 120 Minute 15.70 ng/L (0-10) H 01/21/23 15:21 Delta Troponin T 1.70 ABS# (0-10) 01/21/23 15:21 NT-Pro-B Natriuret Pep 1939 pg/mL (0-125) H 01/21/23 14:21 Total Protein 6.5 g/dL (6.6-8.7) L 01/21/23 14:21 Albumin 4.2 g/dL (3.5-5.2) 01/21/23 14:21 Globulin 2.3 g/dL (1.3-4.6) 01/21/23 14:21 Urine Color Colorless (Yellow) 01/21/23 14:24 Urine Appearance Clear (CLEAR) 01/21/23 14:24 Urine pH 5 (5-7) 01/21/23 14:24 Ur Specific [place] 1.005 (1.005-1.030) 01/21/23 14:24 Urine Protein Neg (Negative) 01/21/23 14:24 Urine Glucose (UA) 4+ (Normal) H 01/21/23 14:24 Urine Ketones Negative (Negative) 01/21/23 14:24 Urine Blood Neg (Negative) 01/21/23 14:24 Urine Nitrate Negative (Negative) 01/21/23 14:24 Urine Bilirubin Neg (Negative) 01/21/23 14:24 Urine Urobilinogen Norm mg/dL (Negative) 01/21/23 14:24 Ur Leukocyte Esterase Negative (Negative) 01/21/23 14:24 Coronavirus 229E (PCR) Not detected (NOT DETECT) 01/21/23 14:33 Influenza Type A Ag Negative (Negative) 01/21/23 14:33 Influenza Type B Ag Negative (Negative) 01/21/23 14:33 SARS-CoV-2 (PCR) Not detected (NOT DETECT) 01/21/23 14:33 Discharge Plan Discharge Patient Disposition: Home Clinical Impression: Pneumonia Condition: Stable Prescriptions: New levofloxacin 750 mg tablet 750 mg PO DAILY 7 Days Qty: 7 0RF prednisone 10 mg tablet 10 mg PO DAILY Qty: 26 0RF Rx Instructions: 60 mg once daily for 2 days, 40 mg once daily for 2 days, 20 mg once daily for 2 days, 10 mg once daily for 2 days. No Action rosuvastatin 40 mg tablet 40 mg PO DAILY@20 (DME) Diabetic Shoes See Rx Instructions .Route .MEDSUPPLY Qty: 1 0RF Rx Instructions: As directed albuterol sulfate 90 mcg/actuation HFA aerosol inhaler 1 puff INHALATION Q6H PRN (Reason: Shortness Of Breath) Qty: 8.5 3RF Cough Drops See Rx Instructions .ROUTE .COMPLEX Rx Instructions: may keep at bedside ondansetron 4 mg tablet,disintegrating 4 mg PO Q6H PRN (Reason: nausea and vomiting) Qty: 14 0RF Myrbetriq 25 mg tablet extended release 24 hr 25 mg PO DAILY@0700 promethazine-DM 6.25-15 mg/5 mL Syrup 5 ml PO Q6H PRN (Reason: Cough) hydroxyzine HCl 25 mg Tablet 25 mg PO Q8H PRN (Reason: Anxiety) fluoride (sodium) [SF 5000 Plus] 1.1 % Cream See Rx Instructions .ROUTE .COMPLEX Rx Instructions: brush on teeth bid with use of regular tooth paste do not eat or drink 30 mins after (use at 07:00 & 20:00) aspirin 81 mg tablet,delayed release (DR/EC) 81 mg PO DAILY@07 Acidophilus 175 mg PO DAILY@19 loperamide 2 mg Tablet 2 mg PO QID PRN (Reason: Diarrhea) pantoprazole 40 mg tablet,delayed release (DR/EC) 40 mg PO DAILY@07 insulin aspart U-100 [Novolog U-100 Insulin aspart] 100 unit/mL solution See Rx Instructions .ROUTE .COMPLEX Rx Instructions: PER SLIDING SCALE- CHECK BS AC MEALS AND HS BEFORE SLIDING SCALE @ 05:30,11:00,16:00,20:00 150-200=0 units 201-250=2 units 251-300=4 units 301-350=6 units 351-400=8 units Debrox 6.5 % Drops 5 - 10 drp otic (ear) Q30D Flonase Sensimist 27.5 mcg/actuation [place],Suspension 1 spray INTRANASAL DAILY@0700 roflumilast [Daliresp] 500 mcg tablet 500 mcg PO DAILY@0700 Trelegy Ellipta 100-62.5-25 mcg blister with device 1 inh inhalation DAILY@07 acetaminophen [Tylenol Extra Strength] 500 mg Tablet 1,000 mg PO Q4H MDD 8 tabs PRN (Reason: Pain) magnesium hydroxide [Milk of Magnesia] 400 mg/5 mL Suspension See Rx Instructions .ROUTE .COMPLEX Rx Instructions: 30ML PO ONCE DAILY PRN IF NO BM FOR 3 DAYS gabapentin 300 mg capsule 600 mg PO BID@0700,2000 bisacodyl [Dulcolax (bisacodyl)] 5 mg Tablet,Delayed Release (Dr/Ec) 10 mg PO DAILY PRN (Reason: Constipation) melatonin 5 mg Tablet 5 mg PO BEDTIME@2000 venlafaxine 75 mg Capsule,Extended Release 24hr 75 mg PO DAILY@0700 Saline Nasal 0.65 % Aerosol,[place] See Rx Instructions .ROUTE .COMPLEX Rx Instructions: SQUEEZE INTO DRY NOSTRILS TWICE DAILY THEN FOLLOW WITH BACTROBAN. USE AT 0700 AND 2000 levetiracetam 500 mg tablet See Rx Instructions .ROUTE .COMPLEX Rx Instructions: TAKE 500 MG BY MOUTH IN THE MORNING AND 1,000 MG IN THE PM tramadol 50 mg tablet 50 mg PO Q8H PRN (Reason: pain) Qty: 10 0RF ibuprofen 200 mg Tablet 400 mg PO Q6H PRN (Reason: Pain) nystatin 100,000 unit/gram powder See Rx Instructions .ROUTE .COMPLEX Rx Instructions: APPLY TO AFFECTED AREAS TWICE DAILY NEEDED Ozempic 1 mg/dose (4 mg/3 mL) pen injector 1 mg SUBCUT Q7D zinc acetate 50 mg (zinc) Capsule 50 mg PO DAILY@07 bumetanide 0.5 mg tablet 0.5 mg PO DAILY@07 ipratropium-albuterol 0.5 mg-3 mg(2.5 mg base)/3 mL Solution For Nebulization 3 ml INHALATION Q4H PRN (Reason: Shortness Of Breath) carboxymethylcellulose sodium [Refresh Tears] 0.5 % Drops 1 - 2 drp ophthalmic (eye) .EVERY 2 HOURS PRN (Reason: Dry Eye(S)) clotrimazole 1 % Cream See Rx Instructions .ROUTE .COMPLEX Rx Instructions: apply topically to scales in right foot cholecalciferol (vitamin D3) [Vitamin D3] 50 mcg (2,000 unit) Capsule 50 mcg PO DAILY@07 Jardiance 25 mg Tablet 25 mg PO DAILY@07 lidocaine 5 % Adhesive Patch,Medicated 1 patch TOPICAL DAILY PRN (Reason: Pain) Rx Instructions: leave on most painful area for up to 12 hrs then off for 12 hours PreserVision AREDS [id number] capsule 1 cap PO BID@07,19 ammonium lactate 12 % cream 1 applic topical DAILY@20 insulin degludec [Tresiba FlexTouch U-100] 100 unit/mL (3 mL) Insulin Pen 10 unit SUBCUT BEDTIME Discharge Orders: Discharge ED (Routine); Ordered 01/21/23 Ordered By: Parish Harrington Referrals: Tashi Acosta MD [Primary Care Provider] - Patient Instructions: Pneumonia (ED) Activity Restrictions/Additional Instructions: See handout over generalized instructions. A prescription of prednisone and levofloxacin was sent to your pharmacy be picked up. First dose of levofloxacin given in the emergency department. Increase oral hydration. Cold-mist humidifier night. Continue to monitor oxygen saturations at home and return to the emergency department if it should drop below 90. Tylenol and Motrin as needed for fever and comfort. Call your primary care provider tomorrow with an update of your symptoms and to schedule appointment for further management/evaluation. Return to the emergency department for any rapid or worsening symptoms to include but not limited to chest pain, worsening shortness of breath, fevers, lightheadedness, dizziness, nausea, vomiting, or as needed. Sign Out Sign Out Data: Patient Sign Out occurred on 01/21/23 at 17:31. Patient's care was discussed, and care was transferred from to Eligio Yi DO. Coding Level of Care Code ED Farm [employer] Member for Chg Fwd Documented by User: Eligio Yi DO 01/21/23 17:33 HPI - SOB/Dyspnea General: Chief Complaint: Shortness of Breath/Dyspnea Stated Complaint: SOB Time Seen by Provider: 01/21/23 13:10 PFSH ED PFSH: Medical History Acute exacerbation of chronic obstructive airways disease Acute on chronic diastolic (congestive) heart failure Benign essential hypertension with target blood pressure below 140/90 Chronic respiratory failure with hypoxia and hypercapnia COPD (chronic obstructive pulmonary disease) Depression Diastolic congestive heart failure Hyperlipidemia Hypertension Moderate to severe mitral regurgitation Nonischemic cardiomyopathy Obesity Obesity hypoventilation syndrome Obstructive sleep apnea Pulmonary hypertension Restrictive lung disease Seizure disorder Sleep apnea Small bowel obstruction T12 vertebral fracture Tricuspid regurgitation Type 2 diabetes mellitus Surgical History H/O mitral valve replacement History of Ulnar nerve compression Family History Brother CAD (coronary artery disease) Sister CAD (coronary artery disease) Grandmother Diabetes Mother Stroke Denies family history of Clotting disorder Dementia Chronic kidney disease (CKD) Suicide Anesthesia complication Bleeding disorder Lung disease Cancer Social History Smoking and tobacco/nicotine status: current every day tobacco/nicotine user cigarettes Packs smoked per day: 0.25 Years cigarettes smoked: 33 [ Other cigarette details: Hx of 1PPD x 30 Years, started 1991] Second hand smoke exposure: Yes Alcohol intake: never Substance/Drug Use: never Caregiver/support person: Yes Lives independently: No Housing: Assisted Living Facility Marital status: / Current occupational status: retired and disabled Do you think of yourself as: Straight/Heterosexual Current gender identity: Female Course Vital Signs: Vital signs: Vital Signs Temperature 97.9 F 01/21/23 13:18 Pulse Rate 80 01/21/23 14:36 Respiratory Rate 20 H 01/21/23 14:05 Blood Pressure 133/79 01/21/23 14:36 Pulse Oximetry 97 01/21/23 14:36 Oxygen Delivery Me thod Room Air 01/21/23 14:36 Oxygen Flow Rate 3 01/21/23 14:05 MDM - SOB/Dyspnea Medical Decision Making Patient is a 67-year-old female with a past medical history significant for COPD, congestive heart failure, hypertension, type 2 diabetes mellitus, mitral valve prolapse, and depression who presents to the emergency department for evaluation of shortness of breath. Chart reviewed and patient discussed with midlevel. Agree with assessment and plan. Lab Data 01/21/23 16:34 01/21/23 14:21 Labs/Radiology: Radiology Impressions Chest X-Ray 01/21/23 13:25 IMPRESSION: Right lower lobe infiltrate. Abdomen/Pelvis CT 01/21/23 15:59 IMPRESSION: No acute findings. Laboratory Results WBC 9.81 10^3/uL (3.29-11.43) 01/21/23 16:34 RBC 5.50 10^6/uL (3.85-5.65) 01/21/23 16:34 Hgb 14.60 g/dL (11.27-16.99) 01/21/23 16:34 Hct 47.5 % (36-47) H 01/21/23 16:34 MCV 86.4 fl (85-98) 01/21/23 16:34 MCH 26.5 pg (27-33) L 01/21/23 16:34 MCHC 30.7 g/dL (30-55) 01/21/23 16:34 RDW 17.4 % (12.1-15.1) H 01/21/23 16:34 Plt Count 198 10^3/cmm (157-399) 01/21/23 16:34 MPV 11.3 fL (7.4-10.4) H 01/21/23 16:34 Neut % (Auto) 85.0 % 01/21/23 16:34 Lymph % (Auto) 7.0 % 01/21/23 16:34 [place] % (Auto) 3.5 % 01/21/23 16:34 Eos % (Auto) 3.7 % 01/21/23 16:34 Baso % (Auto) 0.4 % 01/21/23 16:34 Neut # (Auto) 8.34 10^3/uL (1.8-7.7) H 01/21/23 16:34 Lymph # (Auto) 0.7 10^3/uL (0.8-4.8) L 01/21/23 16:34 [place] # (Auto) 0.3 10^3/uL (0.2-0.9) 01/21/23 16:34 Eos # (Auto) 0.4 10^3/uL (0.0-0.8) 01/21/23 16:34 Baso # (Auto) 0.0 10^3/uL (0.0-0.1) 01/21/23 16:34 Nucleated RBC % (auto) 0 % 01/21/23 16:34 Nucleated RBCs # 0.0 /100WBC 01/21/23 16:34 Sodium 142 mmol/L (136-145) 01/21/23 14:21 Potassium 3.6 mmol/L (3.5-5.1) 01/21/23 14:21 Chloride 104 mmol/L (98-107) 01/21/23 14:21 Carbon Dioxide 28 mmol/L (22-29) 01/21/23 14:21 Anion Gap 13.6 (5-19) 01/21/23 14:21 BUN 14 mg/dL (8-23) 01/21/23 14:21 Creatinine 0.8 mg/dL (0.5-0.9) 01/21/23 14:21 GFR Calculation 71.1 mL/min (90-130) L 01/21/23 14:21 Glucose 166 mg/dL (65-115) H 01/21/23 14:21 POC Glucose 170 mg/dL (70-110) H 01/21/23 15:26 Calculated Osmolality 298 mOsm/kg (285-295) H 01/21/23 14:21 Calcium 8.9 mg/dL (8.5-10.5) 01/21/23 14:21 Total Bilirubin 0.3 mg/dL (0.15-1.2) 01/21/23 14:21 AST 14 U/L (0-32) 01/21/23 14:21 ALT 8 U/L (0-33) 01/21/23 14:21 Alkaline Phosphatase 153 U/L (35-105) H 01/21/23 14:21 Troponin T Baseline 14 ng/L (0-10) H 01/21/23 13:38 Troponin T 120 Minute 15.70 ng/L (0-10) H 01/21/23 15:21 Delta Troponin T 1.70 ABS# (0-10) 01/21/23 15:21 NT-Pro-B Natriuret Pep 1939 pg/mL (0-125) H 01/21/23 14:21 Total Protein 6.5 g/dL (6.6-8.7) L 01/21/23 14:21 Albumin 4.2 g/dL (3.5-5.2) 01/21/23 14:21 Globulin 2.3 g/dL (1.3-4.6) 01/21/23 14:21 Urine Color Colorless (Yellow) 01/21/23 14:24 Urine Appearance Clear (CLEAR) 01/21/23 14:24 Urine pH 5 (5-7) 01/21/23 14:24 Ur Specific [place] 1.005 (1.005-1.030) 01/21/23 14:24 Urine Protein Neg (Negative) 01/21/23 14:24 Urine Glucose (UA) 4+ (Normal) H 01/21/23 14:24 Urine Ketones Negative (Negative) 01/21/23 14:24 Urine Blood Neg (Negative) 01/21/23 14:24 Urine Nitrate Negative (Negative) 01/21/23 14:24 Urine Bilirubin Neg (Negative) 01/21/23 14:24 Urine Urobilinogen Norm mg/dL (Negative) 01/21/23 14:24 Ur Leukocyte Esterase Negative (Negative) 01/21/23 14:24 Coronavirus 229E (PCR) Not detected (NOT DETECT) 01/21/23 14:33 Influenza Type A Ag Negative (Negative) 01/21/23 14:33 Influenza Type B Ag Negative (Negative) 01/21/23 14:33 SARS-CoV-2 (PCR) Not detected (NOT DETECT) 01/21/23 14:33 All radiology interpretation(s) finalized by discharge Discharge Plan Discharge Patient Disposition: Home Clinical Impression: Pneumonia Condition: Stable Prescriptions: New levofloxacin 750 mg tablet 750 mg PO DAILY 7 Days Qty: 7 0RF prednisone 10 mg tablet 10 mg PO DAILY Qty: 26 0RF Rx Instructions: 60 mg once daily for 2 days, 40 mg once daily for 2 days, 20 mg once daily for 2 days, 10 mg once daily for 2 days. No Action rosuvastatin 40 mg tablet 40 mg PO DAILY@20 (DME) Diabetic Shoes See Rx Instructions .Route .MEDSUPPLY Qty: 1 0RF Rx Instructions: As directed albuterol sulfate 90 mcg/actuation HFA aerosol inhaler 1 puff INHALATION Q6H PRN (Reason: Shortness Of Breath) Qty: 8.5 3RF Cough Drops See Rx Instructions .ROUTE .COMPLEX Rx Instructions: may keep at bedside ondansetron 4 mg tablet,disintegrating 4 mg PO Q6H PRN (Reason: nausea and vomiting) Qty: 14 0RF Myrbetriq 25 mg tablet extended release 24 hr 25 mg PO DAILY@0700 promethazine-DM 6.25-15 mg/5 mL Syrup 5 ml PO Q6H PRN (Reason: Cough) hydroxyzine HCl 25 mg Tablet 25 mg PO Q8H PRN (Reason: Anxiety) fluoride (sodium) [SF 5000 Plus] 1.1 % Cream See Rx Instructions .ROUTE .COMPLEX Rx Instructions: brush on teeth bid with use of regular tooth paste do not eat or drink 30 mins after (use at 07:00 & 20:00) aspirin 81 mg tablet,delayed release (DR/EC) 81 mg PO DAILY@07 Acidophilus 175 mg PO DAILY@19 loperamide 2 mg Tablet 2 mg PO QID PRN (Reason: Diarrhea) pantoprazole 40 mg tablet,delayed release (DR/EC) 40 mg PO DAILY@07 insulin aspart U-100 [Novolog U-100 Insulin aspart] 100 unit/mL solution See Rx Instructions .ROUTE .COMPLEX Rx Instructions: PER SLIDING SCALE- CHECK BS AC MEALS AND HS BEFORE SLIDING SCALE @ 05:30,11:00,16:00,20:00 150-200=0 units 201-250=2 units 251-300=4 units 301-350=6 units 351-400=8 units Debrox 6.5 % Drops 5 - 10 drp otic (ear) Q30D Flonase Sensimist 27.5 mcg/actuation [place],Suspension 1 spray INTRANASAL DAILY@0700 roflumilast [Daliresp] 500 mcg tablet 500 mcg PO DAILY@0700 Trelelynn Ellipta 100-62.5-25 mcg blister with device 1 inh inhalation DAILY@07 acetaminophen [Tylenol Extra Strength] 500 mg Tablet 1,000 mg PO Q4H MDD 8 tabs PRN (Reason: Pain) magnesium hydroxide [Milk of Magnesia] 400 mg/5 mL Suspension See Rx Instructions .ROUTE .COMPLEX Rx Instructions: 30ML PO ONCE DAILY PRN IF NO BM FOR 3 DAYS gabapentin 300 mg capsule 600 mg PO BID@0700,2000 bisacodyl [Dulcolax (bisacodyl)] 5 mg Tablet,Delayed Release (Dr/Ec) 10 mg PO DAILY PRN (Reason: Constipation) melatonin 5 mg Tablet 5 mg PO BEDTIME@2000 venlafaxine 75 mg Capsule,Extended Release 24hr 75 mg PO DAILY@0700 Saline Nasal 0.65 % Aerosol,[place] See Rx Instructions .ROUTE .COMPLEX Rx Instructions: SQUEEZE INTO DRY NOSTRILS TWICE DAILY THEN FOLLOW WITH BACTROBAN. USE AT 0700 AND 2000 levetiracetam 500 mg tablet See Rx Instructions .ROUTE .COMPLEX Rx Instructions: TAKE 500 MG BY MOUTH IN THE MORNING AND 1,000 MG IN THE PM tramadol 50 mg tablet 50 mg PO Q8H PRN (Reason: pain) Qty: 10 0RF ibuprofen 200 mg Tablet 400 mg PO Q6H PRN (Reason: Pain) nystatin 100,000 unit/gram powder See Rx Instructions .ROUTE .COMPLEX Rx Instructions: APPLY TO AFFECTED AREAS TWICE DAILY NEEDED Ozempic 1 mg/dose (4 mg/3 mL) pen injector 1 mg SUBCUT Q7D zinc acetate 50 mg (zinc) Capsule 50 mg PO DAILY@07 bumetanide 0.5 mg tablet 0.5 mg PO DAILY@07 ipratropium-albuterol 0.5 mg-3 mg(2.5 mg base)/3 mL Solution For Nebulization 3 ml INHALATION Q4H PRN (Reason: Shortness Of Breath) carboxymethylcellulose sodium [Refresh Tears] 0.5 % Drops 1 - 2 drp ophthalmic (eye) .EVERY 2 HOURS PRN (Reason: Dry Eye(S)) clotrimazole 1 % Cream See Rx Instructions .ROUTE .COMPLEX Rx Instructions: apply topically to scales in right foot cholecalciferol (vitamin D3) [Vitamin D3] 50 mcg (2,000 unit) Capsule 50 mcg PO DAILY@07 Jardiance 25 mg Tablet 25 mg PO DAILY@07 lidocaine 5 % Adhesive Patch,Medicated 1 patch TOPICAL DAILY PRN (Reason: Pain) Rx Instructions: leave on most painful area for up to 12 hrs then off for 12 hours PreserVision AREDS 14,320-226-200 [id number] capsule 1 cap PO BID@07,19 ammonium lactate 12 % cream 1 applic topical DAILY@20 insulin degludec [Tresiba FlexTouch U-100] 100 unit/mL (3 mL) Insulin Pen 10 unit SUBCUT BEDTIME Discharge Orders: Discharge ED (Routine); Ordered 01/21/23 Ordered By: Parish Harrington Referrals: Tashi Acosta MD [Primary Care Provider] - Patient Instructions: Pneumonia (ED) Activity Restrictions/Additional Instructions: See handout over generalized instructions. A prescription of prednisone and levofloxacin was sent to your pharmacy be picked up. First dose of levofloxacin given in the emergency department. Increase oral hydration. Cold-mist humidifier night. Continue to monitor oxygen saturations at home and return to the emergency department if it should drop below 90. Tylenol and Motrin as needed for fever and comfort. Call your primary care provider tomorrow with an update of your symptoms and to schedule appointment for further management/evaluation. Return to the emergency department for any rapid or worsening symptoms to include but not limited to chest pain, worsening shortness of breath, fevers, lightheadedness, dizziness, nausea, vomiting, or as needed. Sign Out Sign Out Data: Patient Sign Out occurred on 01/21/23 at 17:31. Patient's care was discussed, and care was transferred from to Eligio Yi DO. Coding Level of Care Code ED Farm Crew Member for Kanchan Abdi
[2023-01-21 13:44] VITALS: BP 143/88; PULSE 89; O2SAT 93
[2023-01-21 13:44] LABS: Basophils % 0.4 %; Eosinophils # 0.7 10^3/uL (0.0-0.8); Eosinophils % 7.2 %; Hematocrit 46.9 % (36-47); Lymphocytes # 1.6 10^3/uL (0.8-4.8); Lymphocytes % 17.7 %; Mean Corpuscular HGB Conc 29.4 g/dL (30-55); Mean Corpuscular Hemoglobin 26.6 pg (27-33); Mean Corpuscular Volume 90.4 fl (85-98); Mean Platelet Volume 10.8 fL (7.4-10.4); Monocytes # 0.6 10^3/uL (0.2-0.9); Monocytes % 6.9 %; Neutrophils # 6.19 10^3/uL (1.8-7.7); Neutrophils % 67.5 %; Nucleated Red Blood Cells % 0 %; Platelet Count 160 10^3/cmm (157-399); Red Blood Count 5.19 10^6/uL (3.85-5.65); Red Cell Distribution Width 17.4 % (12.1-15.1); White Blood Count 9.17 10^3/uL (3.29-11.43)
[2023-01-21] MEDS: ipratropium-albuterol 3 mL Neb 9 ML INHALATION (14:03)
[2023-01-21 14:05] VITALS: PULSE 88; RESP 20; O2SAT 89
[2023-01-21 14:06] LABS: Troponin(5th) Baseline 14 ng/L (0-10)
[2023-01-21 14:22] VITALS: PULSE 87
[2023-01-21] MEDS: methylPREDNISolone sod succ 125 MG in water for injection-sterile 2 ML 24 MG IVP (14:28)
[2023-01-21 14:36] VITALS: BP 133/79; PULSE 80; O2SAT 97
[2023-01-21 14:45] LABS: Add Urine Microscopic? NO; Charge for UA Resulting for Rev
[2023-01-21 14:55] LABS: Bilirubin Urine Neg (Negative); Blood Urine Neg (Negative); Glucose Urine UA 4+ (Normal); Ketones Urine Negative (Negative); Leukocyte Esterase Urine Negative (Negative); Nitrate Urine Negative (Negative); Protein Urine Neg (Negative); Specific Gravity, Urine 1.005 (1.005-1.030); Urine Appearance Clear (CLEAR); Urine Color Colorless (Yellow); Urobilinogen Urine Norm (Negative); pH Urine 5 (5-7)
--- NOTE | 2023-01-21 15:02 | PC.PHAR ---
Addendum entered by Erinn Olea 01/21/23 15:49: phoned again at 3:45 pm Original Note: PT LIVES IN [facility] [phone]. 01/21/23. FAXING MED LIST 3 PM
[2023-01-21 15:14] LABS: Alanine Aminotransferase 8 U/L (0-33); Albumin Level 4.2 g/dL (3.5-5.2); Alkaline Phosphatase 153 U/L (35-105); Anion Gap 13.6 (5-19); Aspartate Amino Transferase 14 U/L (0-32); Blood Urea Nitrogen 14 mg/dL (8-23); Calcium 8.9 mg/dL (8.5-10.5); Carbon Dioxide 28 mmol/L (22-29); Chloride 104 mmol/L (98-107); Globulin 2.3 g/dL (1.3-4.6); Glomerular Filtration Rate 71.1 mL/min (90-130); Glucose 166 mg/dL (65-115); Osmolality Calculated 298 mOsm/kg (285-295); Potassium 3.6 mmol/L (3.5-5.1); Sodium 142 mmol/L (136-145); Total Bilirubin 0.3 mg/dL (0.15-1.2); Total Protein 6.5 g/dL (6.6-8.7)
[2023-01-21 15:28] LABS: Influenza A by IFA Negative (Negative); Influenza B by IFA Negative (Negative)
[2023-01-21 15:29] LABS: Glucose Point of Care 170 mg/dL (70-110)
[2023-01-21 15:56] LABS: NT Pro B Type Natriuretic Pept 1939 pg/mL (0-125)
--- NOTE | 2023-01-21 15:59 | CTR_ITS ---
PROCEDURE INFORMATION: Exam: CT Abdomen And Pelvis Without Contrast Exam date and time: 01/21/2023 5:19 PM Age: 67 years old Clinical indication: Other: Diarrhea; Additional info: Abdominal pain TECHNIQUE: Imaging protocol: Computed tomography of the abdomen and pelvis without contrast. Radiation optimization: All CT scans at this facility use at least one of these dose optimization techniques: automated exposure control; mA and/or kV adjustment per patient size (includes targeted exams where dose is matched to clinical indication); or iterative reconstruction. REPORTING DATA: Count of CT and Cardiac NM exams in prior 12 months: This patient has received 2 known CTs and 0 known cardiac nuclear medicine studies in the 12 months prior to the current study. COMPARISON: CT abdomen pelvis wo con [id number] 01/04/2022 11:45 PM RADIATION DOSE METRICS: Total DLP (mGy-cm): 1004.43 FINDINGS: Lungs: Minimal subsegmental atelectasis in the right middle lobe. Heart: Cardiomegaly. Liver: Normal. No mass. Gallbladder and bile ducts: Normal. No calcified stones. No ductal dilation. Pancreas: Fatty atrophy of the pancreas. Spleen: Normal. No splenomegaly. Adrenal glands: Normal. No mass. Kidneys and ureters: Punctate calcification left kidney. No renal obstruction. Stomach and bowel: Unremarkable. No obstruction. No mucosal thickening. Appendix: No evidence of appendicitis. Intraperitoneal space: Unremarkable. No free air. No significant fluid collection. Vasculature: Unremarkable. No abdominal aortic aneurysm. Lymph nodes: Unremarkable. No enlarged lymph nodes. Urinary bladder: Unremarkable as visualized. Reproductive: Unremarkable as visualized. Bones/joints: Unchanged moderate L4 compression deformity. Soft tissues: Unremarkable. CT/CT abdomen pelvis wo con [id number] IMPRESSION: No acute findings.
[2023-01-21 16:27] LABS: Adenovirus Not Detected (NOT DETECT); Chlamydia Pneumoniae Not Detected (NOT DETECT); Coronavirus 229E,HKU1,NL63,OC4 Not Detected (NOT DETECT); Human Metapneumovirus Not Detected (NOT DETECT); Human Rhinovirus/Enterovirus Not Detected (NOT DETECT); Influenza A Not Detected (NOT DETECT); Influenza A H1 Not Detected (NOT DETECT); Influenza A H1-2009 Not Detected (NOT DETECT); Influenza A H3 Not Detected (NOT DETECT); Influenza B Not Detected (NOT DETECT); Mycoplasma Pneumoniae Not Detected (NOT DETECT); Parainfluenza Virus Type 1 Not Detected (NOT DETECT); Parainfluenza Virus Type 2 Not Detected (NOT DETECT); Parainfluenza Virus Type 3 Not Detected (NOT DETECT); Parainfluenza Virus Type 4 Not Detected (NOT DETECT); Respiratory Syncytial Virus A Not Detected (NOT DETECT); Respiratory Syncytial Virus B Not Detected (NOT DETECT); SARS-COV-2 Not Detected (NOT DETECT)
[2023-01-21 16:44] LABS: Basophils % 0.4 %; Eosinophils # 0.4 10^3/uL (0.0-0.8); Eosinophils % 3.7 %; Hematocrit 47.5 % (36-47); Lymphocytes # 0.7 10^3/uL (0.8-4.8); Mean Corpuscular HGB Conc 30.7 g/dL (30-55); Mean Corpuscular Hemoglobin 26.5 pg (27-33); Mean Corpuscular Volume 86.4 fl (85-98); Mean Platelet Volume 11.3 fL (7.4-10.4); Monocytes # 0.3 10^3/uL (0.2-0.9); Monocytes % 3.5 %; Neutrophils # 8.34 10^3/uL (1.8-7.7); Nucleated Red Blood Cells % 0 %; Platelet Count 198 10^3/cmm (157-399); Red Cell Distribution Width 17.4 % (12.1-15.1); White Blood Count 9.81 10^3/uL (3.29-11.43)
[2023-01-21] MEDS: levoFLOXacin 750 mg Tablet PO (17:28)
== END 2023-01-21 17:54 | disposition home or self-care (01) ==
PROVIDERS: Physician Assistant; Emergency Provider Family Medicine; PCP Family Medicine
DX: J44.0 Chronic obstructive pulmonary disease with (acute) lower respiratory infection (principal); J18.9 Pneumonia, unspecified organism; Z79.02 Long term (current) use of antithrombotics/antiplatelets; Z79.82 Long term (current) use of aspirin; Z11.52 Encounter for screening for COVID-19; F17.210 Nicotine dependence, cigarettes, uncomplicated; I11.0 Hypertensive heart disease with heart failure; I50.9 Heart failure, unspecified; E78.5 Hyperlipidemia, unspecified; E11.9 Type 2 diabetes mellitus without complications
CPT/HCPCS: 36415; 36416; 71046; 74176; 80053; 81003; 82962; 83880; 84484; 85025; 87635; 87804; 93005; 94640; 96374; 99285; J2930

== ENCOUNTER 2023-03-17 18:26 | Emergency (ER) | payer MEDICARE, MEDICAID, SELFPAY ==
[2023-03-17 18:28] VITALS: BP 115/74; PULSE 97; RESP 20; TEMP 36.9; O2SAT 97
--- NOTE | 2023-03-17 18:32 | XRR_ITS ---
PROCEDURE INFORMATION: Exam: XR Chest Exam date and time: 03/17/2023 6:39 PM Age: 67 years old Clinical indication: Shortness of breath and wheezing; Patient HX: C/O SOB with wheezing TECHNIQUE: Imaging protocol: Radiologic exam of the chest. Views: 1 view. COMPARISON: CR XR chest 2V* [id number] 01/21/2023 1:57 PM FINDINGS: Lungs: No consolidation. Pleural spaces: Unremarkable. No pleural effusion. No pneumothorax. Heart/Mediastinum: Similar cardiomegaly. Bones/joints: Visualized osseous structures are intact. XR/XR chest 1V portable [id number] IMPRESSION: No acute findings.
--- NOTE | 2023-03-17 18:47 | ED_ITS ---
HPI - SOB/Dyspnea 2 General: Chief Complaint: Shortness of Breath/Dyspnea Stated Complaint: SOB Time Seen by Provider: 03/17/23 18:28 Source: patient and EMS Mode of arrival: EMS Limitations: no limitations History of Present Illness: HPI Narrative: 67-year-old female who has a history of COPD along with chronic smoking states she had shortness of breath along with cough over the last week states she is getting more short of breath today. Patient brought in by EMS was given a breathing treatment states she feels much improved she is on 2 L oxygen at baseline her pulse ox here is 97% she denies any pain denies any fever. Associated symptoms: Deny abdominal pain, chest pain, fever(s), nausea or vomiting Review of Systems 2 Const: Denies: fever(s), chills or change in appetite Eyes: Denies: blurry vision or eye discomfort ENMT: Denies: throat pain or dental pain Card: Denies: chest pain Resp: Reports: dyspnea and non-productive cough GI: Denies: abdominal pain, nausea, vomiting or diarrhea Musc: Denies: neck pain or back pain Skin/Breast: Denies: rash Neuro: Denies: headache(s) PFSH ED 2 PFSH: Medical History Acute exacerbation of chronic obstructive airways disease Acute on chronic diastolic (congestive) heart failure Benign essential hypertension with target blood pressure below 140/90 Chronic respiratory failure with hypoxia and hypercapnia COPD (chronic obstructive pulmonary disease) Depression Diastolic congestive heart failure Hyperlipidemia Hypertension Moderate to severe mitral regurgitation Nonischemic cardiomyopathy Obesity Obesity hypoventilation syndrome Obstructive sleep apnea Pulmonary hypertension Restrictive lung disease Seizure disorder Sleep apnea Small bowel obstruction T12 vertebral fracture Tricuspid regurgitation Type 2 diabetes mellitus Surgical History Ulnar nerve compression History of H/O mitral valve replacement Family History Brother CAD (coronary artery disease) Sister CAD (coronary artery disease) Grandmother Diabetes Mother Stroke Denies family history of Clotting disorder Dementia Chronic kidney disease (CKD) Suicide Anesthesia complication Bleeding disorder Lung disease Cancer Social History Smoking and tobacco/nicotine status: current every day tobacco/nicotine user cigarettes Packs smoked per day: 0.25 Years cigarettes smoked: 33 [ Other cigarette details: Hx of 1PPD x 30 Years, started 1991] Second hand smoke exposure: Yes Alcohol intake: never Substance/Drug Use: never Caregiver/support person: Yes Lives independently: No Housing: Assisted Living Facility Marital status: / Current occupational status: retired and disabled Do you think of yourself as: Straight/Heterosexual Current gender identity: Female Physical Exam 2 Const: COMMON NORMALS: no acute distress, patient oriented x3 and healthy appearing HENMT: COMMON NORMALS: normocephalic and atraumatic HEAD & SCALP: n ormocephalic and atraumatic Eye: COMMON NORMALS: Equal, round and reactive pupils present and EOMs intact bilaterally PUPIL: Yes Equal, round and reactive pupils present Neck/C-Spine: COMMON NORMALS: full ROM and supple Chest: COMMONS NORMALS: normal inspection of the chest and normal palpation of entire chest wall Resp: COMMON NORMALS: normal respiratory effort, No retractions, No use of accessory muscles and clear to auscultation bilaterally AUSCULTATION: clear to auscultation bilaterally Cardio: COMMON NORMALS: regular rate, regular rhythm and No murmurs present (Cardio) RATE: regular rate RHYTHM: regular rhythm GI: COMMON NORMALS: Normal to inspection, nondistended, normoactive bowel sounds present, Soft to palpation, non-tender and no masses PALPATION: Yes Soft to palpation Extremity: COMMON NORMALS: normal to inspection and full ROM Neuro: COMMON NORMALS: patient oriented x3, moves all extremities and no focal motor deficits Psych: COMMON NORMALS: mental status grossly normal, Normal thought process present and cooperative THOUGHT PROCESS: Normal thought process present Skin: COMMON NORMALS: no rashes or lesions noted and no wounds GENERAL SKIN EXAM: no rashes or lesions noted Course 2 Vital Signs: Vital signs: Vital Signs Temperature 98.5 F 03/17/23 18:28 Pulse Rate 99 03/17/23 20:00 Respiratory Rate 20 H 03/17/23 20:00 Blood Pressure 118/76 03/17/23 20:00 Pulse Oximetry 98 03/17/23 20:00 Oxygen Delivery Me thod Nasal Cannula 03/17/23 19:06 Oxygen Flow Rate 2 03/17/23 19:06 MDM - SOB/Dyspnea Medical Decision Making Patient presents here with shortness of breath likely COPD exacerbation she is much improved here she is 98% here on her home 2 L x-ray shows no pneumonia she is stable for discharge we will place her on prednisone she is follow-up with PCP and return if worsening. Medical Records I reviewed the patient's medical records. Lab Data I reviewed the patient's lab results. 03/17/23 18:06 03/17/23 18:06 Labs/Radiology: Radiology Impressions Chest X-Ray 03/17/23 18:32 IMPRESSION: No acute findings. Laboratory Results WBC 8.31 10^3/uL (3.29-11.43) 03/17/23 18:06 RBC 5.43 10^6/uL (3.85-5.65) 03/17/23 18:06 Hgb 14.50 g/dL (11.27-16.99) 03/17/23 18:06 Hct 47.8 % (36-47) H 03/17/23 18:06 MCV 88.0 fl (85-98) 03/17/23 18:06 MCH 26.7 pg (27-33) L 03/17/23 18:06 MCHC 30.3 g/dL (30-55) 03/17/23 18:06 RDW 16.0 % (12.1-15.1) H 03/17/23 18:06 Plt Count 169 10^3/cmm (157-399) 03/17/23 18:06 MPV 11.9 fL (7.4-10.4) H 03/17/23 18:06 Neut % (Auto) 73.0 % 03/17/23 18:06 Lymph % (Auto) 12.2 % 03/17/23 18:06 [place] % (Auto) 8.5 % 03/17/23 18:06 Eos % (Auto) 5.7 % 03/17/23 18:06 Baso % (Auto) 0.2 % 03/17/23 18:06 Neut # (Auto) 6.07 10^3/uL (1.8-7.7) 03/17/23 18:06 Lymph # (Auto) 1.0 10^3/uL (0.8-4.8) 03/17/23 18:06 [place] # (Auto) 0.7 10^3/uL (0.2-0.9) 03/17/23 18:06 Eos # (Auto) 0.5 10^3/uL (0.0-0.8) 03/17/23 18:06 Baso # (Auto) 0.0 10^3/uL (0.0-0.1) 03/17/23 18:06 Nucleated RBC % (auto) 0 % 03/17/23 18:06 Nucleated RBCs # 0.0 /100WBC 03/17/23 18:06 Sodium Cancelled 03/17/23 18:06 Potassium Cancelled 03/17/23 18:06 Chloride Cancelled 03/17/23 18:06 Carbon Dioxide Cancelled 03/17/23 18:06 Anion Gap Cancelled 03/17/23 18:06 BUN Cancelled 03/17/23 18:06 Creatinine Cancelled 03/17/23 18:06 GFR Calculation Cancelled 03/17/23 18:06 Glucose Cancelled 03/17/23 18:06 Calculated Osmolality Cancelled 03/17/23 18:06 Calcium Cancelled 03/17/23 18:06 Total Bilirubin Cancelled 03/17/23 18:06 AST Cancelled 03/17/23 18:06 ALT Cancelled 03/17/23 18:06 Alkaline Phosphatase Cancelled 03/17/23 18:06 NT-Pro-B Natriuret Pep Cancelled 03/17/23 18:06 Total Protein Cancelled 03/17/23 18:06 Albumin Cancelled 03/17/23 18:06 Globulin Cancelled 03/17/23 18:06 Influenza Type A Ag negative (Negative) 03/17/23 19:23 Influenza Type B Ag negative (Negative) 03/17/23 19:23 SARS-CoV-2 Ag (Rapid) negative (Negative) 03/17/23 19:23 XR interpretation done by ED provider, pending radiology final review EKG Data EKG 1: I personally reviewed and interpreted this EKG as follows: EKG Interpretation Date: 03/17/23 EKG interpretation time: 18:48 Interpretation: nsr hr [address] or t wave abnormalities qrs 100 qtc 430 Discharge Plan Discharge Patient Disposition: Home Clinical Impression: Acute exacerbation of chronic obstructive airways disease Condition: Stable Prescriptions: New prednisone 50 mg tablet 50 mg PO DAILY Qty: 5 0RF No Action rosuvastatin 40 mg tablet 40 mg PO DAILY@20 (DME) Diabetic Shoes See Rx Instructions .Route .MEDSUPPLY Qty: 1 0RF Rx Instructions: As directed albuterol sulfate 90 mcg/actuation HFA aerosol inhaler 1 puff INHALATION Q6H PRN (Reason: Shortness Of Breath) Qty: 8.5 3RF ammonium lactate 12 % cream 1 applic topical DAILY@20 Qty: 280 0RF Cough Drops See Rx Instructions .ROUTE .COMPLEX Rx Instructions: may keep at bedside ondansetron 4 mg tablet,disintegrating 4 mg PO Q6H PRN (Reason: nausea and vomiting) Qty: 14 0RF Myrbetriq 25 mg tablet extended release 24 hr 25 mg PO DAILY@0700 promethazine-DM 6.25-15 mg/5 mL Syrup 5 ml PO Q6H PRN (Reason: Cough) hydroxyzine HCl 25 mg Tablet 25 mg PO Q8H PRN (Reason: Anxiety) fluoride (sodium) [SF 5000 Plus] 1.1 % Cream See Rx Instructions .ROUTE .COMPLEX Rx Instructions: brush on teeth bid with use of regular tooth paste do not eat or drink 30 mins after (use at 07:00 & 20:00) aspirin 81 mg tablet,delayed release (DR/EC) 81 mg PO DAILY@07 Acidophilus 175 mg PO DAILY@19 loperamide 2 mg Tablet 2 mg PO QID PRN (Reason: Diarrhea) pantoprazole 40 mg tablet,delayed release (DR/EC) 40 mg PO DAILY@07 insulin aspart U-100 [Novolog U-100 Insulin aspart] 100 unit/mL solution See Rx Instructions .ROUTE .COMPLEX Rx Instructions: PER SLIDING SCALE- CHECK BS AC MEALS AND HS BEFORE SLIDING SCALE @ 05:30,11:00,16:00,20:00 150-200=0 units 201-250=2 units 251-300=4 units 301-350=6 units 351-400=8 units Debrox 6.5 % Drops 5 - 10 drp otic (ear) Q30D Flonase Sensimist 27.5 mcg/actuation [place],Suspension 1 spray INTRANASAL DAILY@0700 roflumilast [Daliresp] 500 mcg tablet 500 mcg PO DAILY@0700 Trelegy Ellipta 100-62.5-25 mcg blister with device 1 inh inhalation DAILY@07 acetaminophen [Tylenol Extra Strength] 500 mg Tablet 1,000 mg PO Q4H MDD 8 tabs PRN (Reason: Pain) magnesium hydroxide [Milk of Magnesia] 400 mg/5 mL Suspension See Rx Instructions .ROUTE .COMPLEX Rx Instructions: 30ML PO ONCE DAILY PRN IF NO BM FOR 3 DAYS gabapentin 300 mg capsule 600 mg PO BID@0700,2000 bisacodyl [Dulcolax (bisacodyl)] 5 mg Tablet,Delayed Release (Dr/Ec) 10 mg PO DAILY PRN (Reason: Constipation) melatonin 5 mg Tablet 5 mg PO BEDTIME@2000 venlafaxine 75 mg Capsule,Extended Release 24hr 75 mg PO DAILY@0700 Saline Nasal 0.65 % Aerosol,[place] See Rx Instructions .ROUTE .COMPLEX Rx Instructions: SQUEEZE INTO DRY NOSTRILS TWICE DAILY THEN FOLLOW WITH BACTROBAN. USE AT 0700 AND 2000 levetiracetam 500 mg tablet See Rx Instructions .ROUTE .COMPLEX Rx Instructions: TAKE 500 MG BY MOUTH IN THE MORNING AND 1,000 MG IN THE PM tramadol 50 mg tablet 50 mg PO Q8H PRN (Reason: pain) Qty: 10 0RF ibuprofen 200 mg Tablet 400 mg PO Q6H PRN (Reason: Pain) nystatin 100,000 unit/gram powder See Rx Instructions .ROUTE .COMPLEX Rx Instructions: APPLY TO AFFECTED AREAS TWICE DAILY NEEDED Ozempic 1 mg/dose (4 mg/3 mL) pen injector 1 mg SUBCUT Q7D prednisone 10 mg tablet 10 mg PO DAILY Qty: 26 0RF Rx Instructions: 60 mg once daily for 2 days, 40 mg once daily for 2 days, 20 mg once daily for 2 days, 10 mg once daily for 2 days. zinc acetate 50 mg (zinc) Capsule 50 mg PO DAILY@07 bumetanide 0.5 mg tablet 0.5 mg PO DAILY@07 ipratropium-albuterol 0.5 mg-3 mg(2.5 mg base)/3 mL Solution For Nebulization 3 ml INHALATION Q4H PRN (Reason: Shortness Of Breath) carboxymethylcellulose sodium [Refresh Tears] 0.5 % Drops 1 - 2 drp ophthalmic (eye) .EVERY 2 HOURS PRN (Reason: Dry Eye(S)) clotrimazole 1 % Cream See Rx Instructions .ROUTE .COMPLEX Rx Instructions: apply topically to scales in right foot cholecalciferol (vitamin D3) [Vitamin D3] 50 mcg (2,000 unit) Capsule 50 mcg PO DAILY@07 Jardiance 25 mg Tablet 25 mg PO DAILY@07 lidocaine 5 % Adhesive Patch,Medicated 1 patch TOPICAL DAILY PRN (Reason: Pain) Rx Instructions: leave on most painful area for up to 12 hrs then off for 12 hours PreserVision AREDS 14,320-226-200 [id number] capsule 1 cap PO BID@,19 insulin degludec [Tresiba FlexTouch U-100] 100 unit/mL (3 mL) Insulin Pen 10 unit SUBCUT BEDTIME Discharge Orders: Discharge ED (Routine); Ordered 03/17/23 Ordered By: Devorah Agee Referrals: Tashi Acosta MD [Primary Care Provider] - 1-3 days Discharge Diet: Advance as tolerated Discharge Activity: Resume usual activity Patient Instructions: COPD (Chronic Obstructive Pulmonary Disease) (ED) Coding Level of Care Code ED Retail Account Representative for Kanchan Abdi
--- NOTE | 2023-03-17 18:48 | ECG_ITS ---
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 Measurements Intervals Calcium Rate: 90 P: 53 OR: 172 QRS: 87 QRSD: 100 T: 64 QT: 382 QTc: 469 Interpretive Statements SINUS RHYTHM Compared to ECG 01/21/2023 13:20:06 No significant changes Electronically Signed On 03-18-2023 10:19:55 DISTRIBUTION A CLASS LINEMAN by Eliezer Mills M.D. [email or web address] [email or web address] choice medical center of smith countyEncirq Corporationmemorial health system [email or web address] [facility] [id number]
[2023-03-17 19:04] VITALS: BP 118/76; PULSE 93; RESP 24; O2SAT 97
[2023-03-17 19:06] VITALS: PULSE 96; RESP 18; O2SAT 96
[2023-03-17] MEDS: albuterol 2.5 mg/3 mL Neb INHALATION (19:07)
[2023-03-17 19:11] VITALS: PULSE 100
[2023-03-17 19:20] LABS: Basophils % 0.2 %; Eosinophils # 0.5 10^3/uL (0.0-0.8); Eosinophils % 5.7 %; Hematocrit 47.8 % (36-47); Lymphocytes % 12.2 %; Mean Corpuscular HGB Conc 30.3 g/dL (30-55); Mean Corpuscular Hemoglobin 26.7 pg (27-33); Mean Platelet Volume 11.9 fL (7.4-10.4); Monocytes # 0.7 10^3/uL (0.2-0.9); Monocytes % 8.5 %; Neutrophils # 6.07 10^3/uL (1.8-7.7); Nucleated Red Blood Cells % 0 %; Platelet Count 169 10^3/cmm (157-399); Red Blood Count 5.43 10^6/uL (3.85-5.65); White Blood Count 8.31 10^3/uL (3.29-11.43)
[2023-03-17] MEDS: methylPREDNISolone sod succ 125 mg/2 mL INJ IV (19:26)
[2023-03-17 19:47] LABS: SARS Covid-2 Antigen negative (Negative)
[2023-03-17 19:52] LABS: Influenza A by IFA negative (Negative); Influenza B by IFA negative (Negative)
[2023-03-17 20:00] VITALS: BP 118/76; PULSE 99; RESP 20; O2SAT 98
[2023-03-17 20:34] VITALS: BP 118/76; PULSE 96; O2SAT 98
== END 2023-03-17 20:36 | disposition home or self-care (01) ==
PROVIDERS: Emergency Provider Emergency Medicine; PCP Family Medicine
DX: J44.1 Chronic obstructive pulmonary disease with (acute) exacerbation (principal); Z79.82 Long term (current) use of aspirin; Z79.4 Long term (current) use of insulin; Z11.52 Encounter for screening for COVID-19; F17.210 Nicotine dependence, cigarettes, uncomplicated; E11.9 Type 2 diabetes mellitus without complications; I43 Cardiomyopathy in diseases classified elsewhere; I11.0 Hypertensive heart disease with heart failure; I50.9 Heart failure, unspecified; E78.5 Hyperlipidemia, unspecified
CPT/HCPCS: 71045; 85025; 87426; 87804; 93005; 94640; 96374; 99285; J2930; J7613

== ENCOUNTER → 2023-05-24 09:21 | Outpatient (BNVA) | payer MEDICARE, MEDICAID, SELFPAY | PROVIDERS: PCP Family Medicine; Visit Provider Internal Medicine Pulmonary Disease | DX: J43.2 Centrilobular emphysema (principal); J98.4 Other disorders of lung; R91.8 Other nonspecific abnormal finding of lung field; J96.11 Chronic respiratory failure with hypoxia; J96.12 Chronic respiratory failure with hypercapnia; F17.210 Nicotine dependence, cigarettes, uncomplicated | CPT/HCPCS: 99214 ==

== ENCOUNTER → 2023-05-30 13:46 | Outpatient (BNVA) | payer MEDICARE, MEDICAID, SELFPAY | PROVIDERS: PCP Family Medicine; Visit Provider Podiatrist Foot & Ankle Surgery | DX: B35.1 Tinea unguium (principal); I73.9 Peripheral vascular disease, unspecified; G62.9 Polyneuropathy, unspecified; L85.3 Xerosis cutis; Z79.4 Long term (current) use of insulin; E11.42 Type 2 diabetes mellitus with diabetic polyneuropathy | CPT/HCPCS: 11721 ==

== ENCOUNTER 2023-06-07 14:42 | Outpatient (CLI) | payer MEDICARE, MEDICAID, SELFPAY ==
--- NOTE | 2023-06-07 14:47 | MM_ITS ---
WS: [id number] BILATERAL 3D TOMOSYNTHESIS DIGITAL SCREENING MAMMOGRAPHY WITH CAD CLINICAL INFORMATION: SCREENING HISTORY: Screening mammogram. No current complaints. COMPARISON: 2022 TECHNIQUE: Bilateral CC and MLO views. FINDINGS: Scattered fibroglandular densities bilaterally. No suspicious focal mass, asymmetry, calcifications, or architectural distortion. No evidence of malignancy. Incidental punctate calcifications. IMPRESSION: MM/[place] [id number] BI-RADS: 2-Benign FOLLOW UP: 1 Year Follow-up Recommend return to annual screening mammography.
== END 2023-06-07 14:43 | disposition home or self-care (01) ==
LOC: RAD 14:43
PROVIDERS: PCP Family Medicine; Visit Provider Family Medicine
DX: Z12.31 Encounter for screening mammogram for malignant neoplasm of breast (principal)
CPT/HCPCS: 77063; 77067

== ENCOUNTER 2023-06-14 07:30 | Outpatient (CLI) | payer MEDICARE, MEDICAID, SELFPAY ==
--- NOTE | 2023-06-14 10:45 | CT_ITS ---
WS: [id number] LDCT LUNG CANCER SCREENING TECHNIQUE: Noncontrast CT of the chest with coronal and sagittal reformatted images. CLINICAL INFORMATION: Cancer Screen COMPARISON: CT 02/07/2022 DLP: 126.52 mGy.cm DIvol: Mean CTDIvol: 3.50 (mGy) All CT scans at [facility] use at least one of these dose optimization techniques: automat ed exposure control; mA and/or kV adjustment per patient size (includes targeted exams where dose is matched to clinical indication); or iterative reconstruction. FINDINGS: Partially calcified subpleural nodule RIGHT upper lobe measuring 4 mm is unchanged. Tiny micronodule RIGHT lower lobe. Noncalcified nodule RIGHT upper lobe measuring 2.5 mm. 3 mm nodule LEFT lower lobe. Hazy atelectasis LEFT lower lobe. Small hazy infrahilar nodule measuring 5 mm. Small micronodules LE FT lower lobe posteriorly with hazy atelectasis likely inflammatory. New ovoid nodule in the lingula at the anterior heart border measuring approximately 7 mm with slight surrounding atelectasis. This is new from previous. Recommend 6-month follow-up. Cardiomegaly. Normal caliber thoracic aorta. No mediastinal or hilar lymphadenopathy. No axillary lym phadenopathy. Normal GE junction. Adrenal glands are normal. Fatty atrophy of the pancreas unchanged. 2.5 cm LEFT thyroid nodule unchanged IMPRESSION: New 7 mm ovoid nodule the lingula. Recommend 6-month follow-up. CT/CT lung screening [id number] LUNG-RADS: 3-Probably Benign FOLLOW UP: 6 Month LDCT
== END 2023-06-14 07:31 | disposition home or self-care (01) ==
LOC: RT 07:31
PROVIDERS: PCP Family Medicine; Visit Provider Internal Medicine Pulmonary Disease
DX: F17.219 Nicotine dependence, cigarettes, with unspecified nicotine-induced disorders (principal)
CPT/HCPCS: 71271

== ENCOUNTER 2023-06-14 07:30 | Outpatient (CLI) | payer MEDICARE, MEDICAID, SELFPAY ==
[2023-06-14 07:57] VITALS: PULSE 85; RESP 20; O2SAT 88
[2023-06-14] MEDS: albuterol 2.5 mg/3 mL Neb INHALATION (07:57)
[2023-06-14 08:02] VITALS: PULSE 84
== END 2023-06-14 07:31 | disposition home or self-care (01) ==
LOC: RT 07:31
PROVIDERS: PCP Family Medicine; Visit Provider Internal Medicine Pulmonary Disease
DX: R91.8 Other nonspecific abnormal finding of lung field (principal)
CPT/HCPCS: 94060; 94618; 94726; 94729; J7613

== ENCOUNTER 2023-08-15 19:55 | Emergency (ER) | payer MEDICARE, MEDICAID, SELFPAY ==
[2023-08-15 19:57] VITALS: BP 132/94; PULSE 93; RESP 18; TEMP 36.7; O2SAT 94
--- NOTE | 2023-08-15 19:58 | XRR_ITS ---
PROCEDURE INFORMATION: Exam: XR Chest Exam date and time: 08/15/2023 8:10 PM Age: 68 years old Clinical indication: Other: Weakness TECHNIQUE: Imaging protocol: Radiologic exam of the chest. Views: 1 view. COMPARISON: CT lung screening [id number] 06/14/2023 11:08 AM FINDINGS: Lungs: No focal consolidation or other acute appearing pulmonary opacity. Pleural spaces: No pleural effusion or pneumothorax noted. Heart/Mediastinum: There is cardiomegaly. Bones/joints: No acute osseous abnormality. XR/XR chest 1V portable [id number] IMPRESSION: No acute cardiopulmonary disease.
--- NOTE | 2023-08-15 20:08 | ECG_ITS ---
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 Measurements Intervals [place] Rate: 93 P: -3 CO: 172 QRS: 70 QRSD: 96 T: 62 QT: 366 QTc: 456 Interpretive Statements SINUS RHYTHM Compared to ECG 03/17/2023 18:48:47 No significant changes Electronically Signed On 08-16-2023 15:45:19 CDT by Beau Rm M.D. [id number]
[2023-08-15 20:18] LABS: Basophils % 0.3 %; Eosinophils # 0.4 10^3/uL (0.0-0.8); Eosinophils % 3.7 %; Hematocrit 47.9 % (36-47); Lymphocytes # 1.9 10^3/uL (0.8-4.8); Mean Corpuscular HGB Conc 31.1 g/dL (30-55); Mean Corpuscular Hemoglobin 26.9 pg (27-33); Mean Corpuscular Volume 86.5 fl (85-98); Mean Platelet Volume 10.3 fL (7.4-10.4); Monocytes # 0.8 10^3/uL (0.2-0.9); Monocytes % 8.1 %; Neutrophils # 6.91 10^3/uL (1.8-7.7); Neutrophils % 68.6 %; Nucleated Red Blood Cells % 0 %; Platelet Count 207 10^3/cmm (157-399); Red Blood Count 5.54 10^6/uL (3.85-5.65); Red Cell Distribution Width 14.7 % (12.1-15.1); White Blood Count 10.07 10^3/uL (3.29-11.43)
[2023-08-15 20:21] VITALS: BP 132/94; PULSE 90; O2SAT 100
--- NOTE | 2023-08-15 20:24 | ED_ITS ---
HPI - Seizure 2 General: Chief Complaint: Seizure Stated Complaint: seizure Time Seen by Provider: 08/15/23 19:58 History of Present Illness: HPI Narrative: 68-year-old female with a history of sei zure disorder hyperlipidemia, type 2 diabetes, hypertension, SRIDEVI, COPD, diastolic congestive heart failure, pulmonary hypertension and depression who presents to the emergency room from the longterm by ambulance after having a seizure. Reports this this was about a 1 to 2- minute seizure. Some postictal state but seems to be improved now. She says prior to the event there was some sort of stress longterm. She says now she just feels sore all over. No focal motor deficits. No altered mental status at this time. No chest pain. No shortness of breath. Review of Systems 2 Narrative: Constitutional symptoms: Negative except as documented in HPI. Skin symptoms: Negative except as documented in HPI. Eye symptoms: Negative except as documented in HPI. ENMT symptoms: Negative except as documented in HPI. Respiratory symptoms: Negative except as documented in HPI. Cardiovascular symptoms: Negative except as documented in HPI. Gastrointestinal symptoms: Negative except as documented in HPI. Genitourinary symptoms: Negative except as documented in HPI. Musculoskeletal symptoms: Negative except as documented in HPI. Neurologic symptoms: Negative except as documented in HPI. Psychiatric symptoms: Negative except as documented in HPI. Endocrine symptoms: Negative except as documented in HPI. PFSH ED 2 PFSH: Medical History Acute exacerbation of chronic obstructive airways disease T12 vertebral fracture Small bowel obstruction Benign essential hypertension with target blood pressure below 140/90 Restrictive lung disease Chronic respiratory failure with hypoxia and hypercapnia Sleep apnea Obesity hypoventilation syndrome Acute on chronic diastolic (congestive) heart failure Nonischemic cardiomyopathy Moderate to severe mitral regurgitation Depression Seizure disorder Hyperlipidemia Type 2 diabetes mellitus Hypertension Obstructive sleep apnea Tricuspid regurgitation Obesity COPD (chronic obstructive pulmonary disease) Diastolic congestive heart failure Pulmonary hypertension Surgical History Ulnar nerve compression History of H/O mitral valve replacement Family History Brother CAD (coronary artery disease) Sister CAD (coronary artery disease) Grandmother Diabetes Mother Stroke Denies family history of Clotting disorder Dementia Chronic kidney disease (CKD) Suicide Anesthesia complication Bleeding disorder Lung disease Cancer Social History Smoking and tobacco/nicotine status: current every day tobacco/nicotine user cigarettes Packs smoked per day: 0.25 Years cigarettes smoked: 33 [ Other cigarette details: Hx of 1PPD x 30 Years, started 1991] Second hand smoke exposure: Yes Alcohol intake: never Substance/Drug Use: never Caregiver/support person: Yes Lives independently: No Housing: Assisted Living Facility Marital status: / Current occupational status: retired and disabled Do you think of yourself as: Straight/Heterosexual Current gender identity: Female Physical Exam 2 Narrative: EXAM NARRATIVE: General: Alert, no acute distress. Skin: Warm, dry. Head: Normocephalic, atraumatic. Neck: Supple, trachea midline. Eye: Extraocular movements are intact. Ears, nose, mouth and throat: mucosa moist. Cardiovascular: Regular, Normal peripheral perfusion. Respiratory: Lungs are clear to auscultation, respirations are non-labored, breath sounds are equal, Symmetrical chest wall expansion. Gastrointestinal: Soft, Nontender, Non distended, Normal bowel sounds. Musculoskeletal: Normal ROM, no deformity. Neurological: Alert and oriented, No focal neurological deficit observed. Psychiatric: Cooperative, appropriate mood & affect. Course 2 Vital Signs: Vital signs: Vital Signs Temperature 98.0 F 08/15/23 19:57 Pulse Rate 90 08/15/23 20:21 Respiratory Rate 18 08/15/23 19:57 Blood Pressure 132/94 08/15/23 20:21 Pulse Oximetry 100 08/15/23 20:21 Oxygen Delivery Me thod Room Air 08/15/23 19:57 MDM - Seizure MDM Narrative Medical decision making narrative: Medical decision making: Differential diagnosis for this patient with a complaint of seizure like activity would include but not be limited to, and based on the above HPI, review of systems and physical exam: seizure, DT's, alcohol withdrawal, brain malignancy, pseudo-seizure, syncope. Orders placed to evaluate differential diagnosis based on the above differential, HPI and physical exam Lab Review: Laboratory results were reviewed and interpreted by myself the emergency room physician White count is 10. Hemoglobin is 14.9. BUN and creatinine are 20 and 0.9. Lactate is negative at 1.2. She does have a urinary tract infection with 15-25 whites and 4+ bacteria. Chest x-ray: Stable cardiomegaly. No acute process. No infiltrate. No pneumothorax. This was reviewed and interpreted by myself the ER physician. EKG: Time 2002. Rate 93. Normal sinus rhythm, No ST-T changes, no ectopy, normal OK & QRS intervals, This was reviewed and interpreted by myself the ER physician at 2004 I reviewed the patient's medical record. Reexamination: Patient remained stable. She is a bit tearful at times but otherwise no focal motor deficits. No altered mental status. No increased work of breathing. Assessment and plan: Urinary tract infection Seizure -Patient has known seizure history and likely had decreased seizure threshold secondary to stress and/or urinary tract infection -IV Rocephin in the emergency room. No further seizure activity. Seizure was definitely not life-threatening with a lactate of only 1.2. - Discharged home - Discussed findings and plan with patient. Answered any questions. - All laboratory values were reviewed and interpreted personally by myself, the ER physician - All imaging was reviewed and interpreted personally by myself, the ER physician. - Evaluation and treatment of this problem were appropriate in the emergency setting Lab Data 08/15/23 20:04 08/15/23 20:04 Labs: Radiology Impressions Chest X-Ray 08/15/23 19:58 IMPRESSION: No acute cardiopulmonary disease. Laboratory Results WBC 10.07 10^3/uL (3.29-11.43) 08/15/23 20:04 RBC 5.54 10^6/uL (3.85-5.65) 08/15/23 20:04 Hgb 14.90 g/dL (11.27-16.99) 08/15/23 20:04 Hct 47.9 % (36-47) H 08/15/23 20:04 MCV 86.5 fl (85-98) 08/15/23 20:04 MCH 26.9 pg (27-33) L 08/15/23 20:04 MCHC 31.1 g/dL (30-55) 08/15/23 20:04 RDW 14.7 % (12.1-15.1) 08/15/23 20:04 Plt Count 207 10^3/cmm (157-399) 08/15/23 20:04 MPV 10.3 fL (7.4-10.4) 08/15/23 20:04 Neut % (Auto) 68.6 % 08/15/23 20:04 Lymph % (Auto) 19.0 % 08/15/23 20:04 Park % (Auto) 8.1 % 08/15/23 20:04 Eos % (Auto) 3.7 % 08/15/23 20:04 Baso % (Auto) 0.3 % 08/15/23 20:04 Neut # (Auto) 6.91 10^3/uL (1.8-7.7) 08/15/23 20:04 Lymph # (Auto) 1.9 10^3/uL (0.8-4.8) 08/15/23 20:04 Park # (Auto) 0.8 10^3/uL (0.2-0.9) 08/15/23 20:04 Eos # (Auto) 0.4 10^3/uL (0.0-0.8) 08/15/23 20:04 Baso # (Auto) 0.0 10^3/uL (0.0-0.1) 08/15/23 20:04 Nucleated RBC % (auto) 0 % 08/15/23 20:04 Nucleated RBCs # 0.0 /100WBC 08/15/23 20:04 Sodium 139 mmol/L (136-145) 08/15/23 20:04 Potassium 4.4 mmol/L (3.5-5.1) 08/15/23 20:04 Chloride 98 mmol/L (98-107) 08/15/23 20:04 Carbon Dioxide 31 mmol/L (22-29) H 08/15/23 20:04 Anion Gap 14.4 (5-19) 08/15/23 20:04 BUN 20 mg/dL (8-23) 08/15/23 20:04 Creatinine 0.9 mg/dL (0.5-0.9) 08/15/23 20:04 GFR Calculation 61.9 mL/min (90-130) L 08/15/23 20:04 Glucose 129 mg/dL (65-115) H 08/15/23 20:04 Calculated Osmolality 292 mOsm/kg (285-295) 08/15/23 20:04 Lactic Acid 1.2 mmol/L (0.5-2.2) 08/15/23 20:04 Calcium 9.2 mg/dL (8.5-10.5) 08/15/23 20:04 Total Bilirubin 0.4 mg/dL (0.15-1.2) 08/15/23 20:04 AST 19 U/L (0-32) 08/15/23 20:04 ALT 13 U/L (0-33) 08/15/23 20:04 Alkaline Phosphatase 103 U/L (35-105) 08/15/23 20:04 Total Protein 8.0 g/dL (6.6-8.7) 08/15/23 20:04 Albumin 4.5 g/dL (3.5-5.2) 08/15/23 20:04 Globulin 3.5 g/dL (1.3-4.6) 08/15/23 20:04 Urine Color Yellow (Yellow) 08/15/23 20:19 Urine Appearance Slightly cloudy (CLEAR) 08/15/23 20:19 Urine pH 5 (5-7) 08/15/23 20:19 Ur Specific [place] 1.015 (1.005-1.030) 08/15/23 20:19 Urine Protein Neg (Negative) 08/15/23 20:19 Urine Glucose (UA) 4+ (Normal) H 08/15/23 20:19 Urine Ketones 1+ (Negative) H 08/15/23 20:19 Urine Blood 2+ (Negative) H 08/15/23 20:19 Urine Nitrate Negative (Negative) 08/15/23 20:19 Urine Bilirubin Neg (Negative) 08/15/23 20:19 Urine Urobilinogen Neg mg/dL (Negative) 08/15/23 20:19 Ur Leukocyte Esterase 2+ (Negative) H 08/15/23 20:19 Urine RBC 5-10 /hpf (0-2) H 08/15/23 20:19 Urine WBC 15-25 /hpf (0-5) H 08/15/23 20:19 Ur Squamous Epith Cells 5-10 /hpf (0-5) H 08/15/23 20:19 Amorphous Sediment Not Reportable 08/15/23 20:19 Urine Bacteria Trace /hpf (NONE) 08/15/23 20:19 All radiology interpretation(s) finalized by discharge Discharge Plan Discharge Patient Disposition: Home Clinical Impression: Epileptic seizure, Urinary tract infection Condition: Stable Prescriptions: New cefdinir 300 mg capsule 300 mg PO BID 7 Days Qty: 14 0RF No Action rosuvastatin 40 mg tablet 40 mg PO DAILY@20 (DME) Diabetic Shoes See Rx Instructions .Route .MEDSUPPLY Qty: 1 0RF Rx Instructions: As directed albuterol sulfate 90 mcg/actuation HFA aerosol inhaler 1 puff INHALATION Q6H PRN (Reason: Shortness Of Breath) Qty: 8.5 3RF ammonium lactate 12 % cream 1 applic topical DAILY@20 Qty: 280 0RF Cough Drops See Rx Instructions .ROUTE .COMPLEX Rx Instructions: may keep at bedside ondansetron 4 mg tablet,disintegrating 4 mg PO Q6H PRN (Reason: nausea and vomiting) Qty: 14 0RF Myrbetriq 25 mg tablet extended release 24 hr 25 mg PO DAILY@0700 promethazine-DM 6.25-15 mg/5 mL Syrup 5 ml PO Q6H PRN (Reason: Cough) hydroxyzine HCl 25 mg Tablet 25 mg PO Q8H PRN (Reason: Anxiety) fluoride (sodium) [SF 5000 Plus] 1.1 % Cream See Rx Instructions .ROUTE .COMPLEX Rx Instructions: brush on teeth bid with use of regular tooth paste do not eat or drink 30 mins after (use at 07:00 & 20:00) aspirin 81 mg tablet,delayed release (DR/EC) 81 mg PO DAILY@07 Acidophilus 175 mg PO DAILY@19 loperamide 2 mg Tablet 2 mg PO QID PRN (Reason: Diarrhea) pantoprazole 40 mg tablet,delayed release (DR/EC) 40 mg PO DAILY@07 insulin aspart U-100 [Novolog U-100 Insulin aspart] 100 unit/mL solution See Rx Instructions .ROUTE .COMPLEX Rx Instructions: PER SLIDING SCALE- CHECK BS AC MEALS AND HS BEFORE SLIDING SCALE @ 05:30,11:00,16:00,20:00 150-200=0 units 201-250=2 units 251-300=4 units 301-350=6 units 351-400=8 units Debrox 6.5 % Drops 5 - 10 drp otic (ear) Q30D Flonase Sensimist 27.5 mcg/actuation [place],Suspension 1 spray INTRANASAL DAILY@0700 roflumilast [Daliresp] 500 mcg tablet 500 mcg PO DAILY@0700 Trelegy Ellipta 100-62.5-25 mcg blister with device 1 inh inhalation DAILY@07 acetaminophen [Tylenol Extra Strength] 500 mg Tablet 1,000 mg PO Q4H MDD 8 tabs PRN (Reason: Pain) magnesium hydroxide [Milk of Magnesia] 400 mg/5 mL Suspension See Rx Instructions .ROUTE .COMPLEX Rx Instructions: 30ML PO ONCE DAILY PRN IF NO BM FOR 3 DAYS gabapentin 300 mg capsule 600 mg PO BID@0700,2000 bisacodyl [Dulcolax (bisacodyl)] 5 mg Tablet,Delayed Release (Dr/Ec) 10 mg PO DAILY PRN (Reason: Constipation) melatonin 5 mg Tablet 5 mg PO BEDTIME@2000 venlafaxine 75 mg Capsule,Extended Release 24hr 75 mg PO DAILY@0700 Saline Nasal 0.65 % Aerosol,[place] See Rx Instructions .ROUTE .COMPLEX Rx Instructions: SQUEEZE INTO DRY NOSTRILS TWICE DAILY THEN FOLLOW WITH BACTROBAN. USE AT 0700 AND 2000 levetiracetam 500 mg tablet See Rx Instructions .ROUTE .COMPLEX Rx Instructions: TAKE 500 MG BY MOUTH IN THE MORNING AND 1,000 MG IN THE PM tramadol 50 mg tablet 50 mg PO Q8H PRN (Reason: pain) Qty: 10 0RF ibuprofen 200 mg Tablet 400 mg PO Q6H PRN (Reason: Pain) nystatin 100,000 unit/gram powder See Rx Instructions .ROUTE .COMPLEX Rx Instructions: APPLY TO AFFECTED AREAS TWICE DAILY NEEDED Ozempic 1 mg/dose (4 mg/3 mL) pen injector 1 mg SUBCUT Q7D zinc acetate 50 mg (zinc) Capsule 50 mg PO DAILY@07 bumetanide 0.5 mg tablet 0.5 mg PO DAILY@07 ipratropium-albuterol 0.5 mg-3 mg(2.5 mg base)/3 mL Solution For Nebulization 3 ml INHALATION Q4H PRN (Reason: Shortness Of Breath) carboxymethylcellulose sodium [Refresh Tears] 0.5 % Drops 1 - 2 drp ophthalmic (eye) .EVERY 2 HOURS PRN (Reason: Dry Eye(S)) clotrimazole 1 % Cream See Rx Instructions .ROUTE .COMPLEX Rx Instructions: apply topically to scales in right foot cholecalciferol (vitamin D3) [Vitamin D3] 50 mcg (2,000 unit) Capsule 50 mcg PO DAILY@07 Jardiance 25 mg Tablet 25 mg PO DAILY@07 lidocaine 5 % Adhesive Patch,Medicated 1 patch TOPICAL DAILY PRN (Reason: Pain) Rx Instructions: leave on most painful area for up to 12 hrs then off for 12 hours PreserVision AREDS [id number],[id number] poko-en-uldt capsule 1 cap PO BID@, insulin degludec [Tresiba FlexTouch U-100] 100 unit/mL (3 mL) Insulin Pen 10 unit SUBCUT BEDTIME Discharge Orders: Discharge ED (Routine); Ordered 08/15/23 Ordered By: Kathryn Braxton Referrals: Tashi Acosta MD [Primary Care Provider] - Discharge Diet: Usual diet Discharge Activity: Increase activity as tolerated Patient Instructions: Urinary Tract Infection in Older Adults (ED), Epilepsy in Older Adults (ED) Activity Restrictions/Additional Instructions: Thank you for choosing [facility] for your healthcare needs today. Please realize this is an emergency room and that we are providing you with a medical screening exam and this may not be complete and all inclusive of all the testing and or work up that you may need to determine your ailment or severity of your illness. You have been screened and evaluated and felt safe for discharge. Health conditions do change or evolve sometimes and as such it is important that you follow up with your Primary Doctor to be re checked, 3-5 days is a general good time frame for follow up. You are always welcome to return to the ED for re assessment if your symptoms are worsening or you have new concerns Coding Level of Care Code ED Room Worker for Kanchan Abdi
[2023-08-15 20:35] LABS: Lactic Sepsis W/Reflex 1.2 mmol/L (0.5-2.2)
[2023-08-15 20:36] LABS: Alanine Aminotransferase 13 U/L (0-33); Albumin Level 4.5 g/dL (3.5-5.2); Alkaline Phosphatase 103 U/L (35-105); Anion Gap 14.4 (5-19); Aspartate Amino Transferase 19 U/L (0-32); Blood Urea Nitrogen 20 mg/dL (8-23); Calcium 9.2 mg/dL (8.5-10.5); Carbon Dioxide 31 mmol/L (22-29); Chloride 98 mmol/L (98-107); Creatinine Clr Calc Pharmacy 77.8844; Globulin 3.5 g/dL (1.3-4.6); Glomerular Filtration Rate 61.9 mL/min (90-130); Glucose 129 mg/dL (65-115); Osmolality Calculated 292 mOsm/kg (285-295); Potassium 4.4 mmol/L (3.5-5.1); Sodium 139 mmol/L (136-145); Total Bilirubin 0.4 mg/dL (0.15-1.2)
[2023-08-15 20:45] LABS: Bacteria Urine TRACE /hpf; Bilirubin Urine Neg (Negative); Blood Urine 2+ (Negative); Glucose Urine UA 4+ (Normal); Ketones Urine 1+ (Negative); Leukocyte Esterase Urine 2+ (Negative); Nitrate Urine Negative (Negative); Protein Urine Neg (Negative); Specific Gravity, Urine 1.015 (1.005-1.030); Urine Appearance Slightly Cloudy (CLEAR); Urine Color Yellow (Yellow); Urobilinogen Urine Neg (Negative); pH Urine 5 (5-7)
[2023-08-15 20:46] LABS: Add Urine Culture? Yes; WBC Urine 15-25 /hpf (0-5)
[2023-08-15] MEDS: cefTRIAXone 1,000 MG in sodium chloride 0.9% (plus) 50 ML 100 MG IV (21:19)
[2023-08-15 21:41] VITALS: BP 122/76; PULSE 89; RESP 18; O2SAT 96
--- NOTE | 2023-08-16 16:36 | PC.NURSE ---
Critical lab result called down to ER after pt was d/c'd. 1-BC resulted positive for staph species. Dr Agee notified of result. No new orders at this time.
== END 2023-08-15 21:40 | disposition home or self-care (01) ==
PROVIDERS: Emergency Provider Emergency Medicine; PCP Family Medicine
DX: G40.909 Epilepsy, unspecified, not intractable, without status epilepticus (principal); N39.0 Urinary tract infection, site not specified; Z79.82 Long term (current) use of aspirin; Z79.85 Long-term (current) use of injectable non-insulin antidiabetic drugs; Z79.4 Long term (current) use of insulin; F17.210 Nicotine dependence, cigarettes, uncomplicated; J44.9 Chronic obstructive pulmonary disease, unspecified; I42.8 Other cardiomyopathies; I11.0 Hypertensive heart disease with heart failure; I50.30 Unspecified diastolic (congestive) heart failure; E78.5 Hyperlipidemia, unspecified; E11.9 Type 2 diabetes mellitus without complications
CPT/HCPCS: 36415; 71045; 80053; 81001; 83605; 85025; 87040; 87077; 87086; 87150; 87186; 87205; 93005; 96365; 99285; J0696

== ENCOUNTER 2023-09-16 10:40 | Emergency (ER) | payer MEDICARE, MEDICAID, SELFPAY ==
[2023-09-16 10:42] VITALS: BP 110/59; PULSE 84; RESP 16; TEMP 36.7; O2SAT 90
--- NOTE | 2023-09-16 10:42 | ECG_ITS ---
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 Measurements Intervals [place] Rate: 85 P: 57 SD: 173 QRS: 94 QRSD: 92 T: 64 QT: 383 QTc: 456 Interpretive Statements SINUS RHYTHM BORDERLINE RIGHT AXIS DEVIATION [QRS AXIS > 90] INTERPRETATION BASED ON A DEFAULT AGE OF 40 YEARS Compared to ECG 08/15/2023 20:03:15 No significant changes Electronically Signed On 09-16-2023 21:02:54 CDT by Jay Adler M.D. [id number] f
--- NOTE | 2023-09-16 10:48 | XRR_ITS ---
PROCEDURE INFORMATION: Exam: XR Chest Exam date and time: 09/16/2023 10:59 AM Age: 68 years old Clinical indication: Pain; Chest pressure; Prior surgery; Surgery date: 6+ months; Surgery type: Bypasses, stents; Additional info: Chest pain TECHNIQUE: Imaging protocol: Radiologic exam of the chest. Views: 1 view. COMPARISON: CR (CHEST, ) 08/15/2023 8:10 PM FINDINGS: Lungs: Unremarkable. No consolidation or mass. Pleural spaces: Unremarkable. No pleural effusion. No pneumothorax. Heart/Mediastinum: Mild cardiomegaly is noted. Bones/joints: Unremarkable. XR/XR chest 1V portable [id number] IMPRESSION: No acute findings.
--- NOTE | 2023-09-16 10:49 | ED_ITS ---
HPI - Chest Pain 2 General: Chief Complaint: Chest Pain Stated Complaint: CHEST PAIN Time Seen by Provider: 09/16/23 10:43 History of Present Illness: 68-year-old female with a history of obe sity nonischemic cardiomyopathy, diastolic heart failure, pulmonary hypertension, COPD and type 2 diabetes mellitus who presents to the emergency room by ambulance from an assisted living with chest pains. She says she has been having some exertional chest pain since yesterday. Describes a pressure in her chest. She received nitroglycerin with EMS. She is currently chest pain-free. No cough. No fevers. No altered mental status. No focal motor deficits. No lower extremity swelling. No abdominal pain. No nausea or vomiting. Review of Systems 2 Narrative: Constitutional symptoms: Negative except as documented in HPI. Skin symptoms: Negative except as documented in HPI. Eye symptoms: Negative except as documented in HPI. ENMT symptoms: Negative except as documented in HPI. Respiratory symptoms: Negative except as documented in HPI. Cardiovascular symptoms: Negative except as documented in HPI. Gastrointestinal symptoms: Negative except as documented in HPI. Genitourinary symptoms: Negative except as documented in HPI. Musculoskeletal symptoms: Negative except as documented in HPI. Neurologic symptoms: Negative except as documented in HPI. Psychiatric symptoms: Negative except as documented in HPI. Endocrine symptoms: Negative except as documented in HPI. PFSH ED 2 PFSH: Medical History Acute exacerbation of chronic obstructive airways disease T12 vertebral fracture Small bowel obstruction Benign essential hypertension with target blood pressure below 140/90 Restrictive lung disease Chronic respiratory failure with hypoxia and hypercapnia Sleep apnea Obesity hypoventilation syndrome Acute on chronic diastolic (congestive) heart failure Nonischemic cardiomyopathy Moderate to severe mitral regurgitation Depression Seizure disorder Hyperlipidemia Type 2 diabetes mellitus Hypertension Obstructive sleep apnea Tricuspid regurgitation Obesity COPD (chronic obstructive pulmonary disease) Diastolic congestive heart failure Pulmonary hypertension Surgical History Ulnar nerve compression History of H/O mitral valve replacement Family History Brother CAD (coronary artery disease) Sister CAD (coronary artery disease) Grandmother Diabetes Mother Stroke Denies family history of Clotting disorder Dementia Chronic kidney disease (CKD) Suicide Anesthesia complication Bleeding disorder Lung disease Cancer Social History Smoking and tobacco/nicotine status: current every day tobacco/nicotine user cigarettes Packs smoked per day: 0.25 Years cigarettes smoked: 33 [ Other cigarette details: Hx of 1PPD x 30 Years, started 1991] Second hand smoke exposure: Yes Alcohol intake: never Substance/Drug Use: never Caregiver/support person: Yes Lives independently: No Housing: Assisted Living Facility Marital status: / Current occupational status: retired and disabled Do you think of yourself as: Straight/Heterosexual Current gender identity: Female Physical Exam 2 Narrative: EXAM NARRATIVE: General: Alert, no acute distress. Skin: Warm, dry. Head: Normocephalic, atraumatic. Neck: Supple, trachea midline. Eye: Extraocular movements are intact. Ears, nose, mouth and throat: mucosa moist. Cardiovascular: Regular, Normal peripheral perfusion. Respiratory: Lungs are clear to auscultation, respirations are non-labored, breath sounds are equal, Symmetrical chest wall expansion. Gastrointestinal: Soft, Nontender, Non distended Musculoskeletal: Normal ROM, no deformity. Neurological: Alert and oriented, No focal neurological deficit observed. Psychiatric: Cooperative, appropriate mood & affect. Course 2 Vital Signs: Vital signs: Vital Signs Temperature 98.0 F 09/16/23 10:42 Pulse Rate 68 09/16/23 14:14 Respiratory Rate 16 09/16/23 10:42 Blood Pressure 107/63 09/16/23 14:14 Pulse Oximetry 97 09/16/23 14:14 Oxygen Delivery Me thod Nasal Cannula 09/16/23 14:14 Oxygen Flow Rate 2 09/16/23 12:33 MDM - Chest Pain Medical Decision Making Differential diagnosis for patient with chest pain includes but is not limited to and based on the above HPI, review of systems and physical exam: Pneumonia. unstable angina. angina. Acute coronary syndrome / PR. Pulmonary embolism. Costochondritis / musculoskeletal. Pleurisy. Pericarditis. Esophageal spasm. Pancreatis. Cholecystitis. Orders placed to evaluate differential diagnosis based on the above differential, HPI and physical exam EK:42 AM. Rate 85. Normal sinus rhythm, No ST-T changes, no ectopy, normal NV & QRS intervals, This was reviewed and interpreted by myself the ER physician at 10:45 AM Repeat EKG: Time 1335. Rate 87. Normal sinus rhythm, No ST-T changes, no ectopy, normal NV & QRS intervals, This was reviewed and interpreted by myself the ER physician at 1340. No changes from previous EKG. Chest x-ray: Stable cardiomegaly. No acute process. No infiltrate. No pneumothorax. This was reviewed and interpreted by myself the ER physician. Lab Review: Laboratory results were reviewed and interpreted by myself the emergency room physician. Lab work is fairly unremarkable. Mild leukocytosis with a white count of 12. Hemoglobin is stable at 15. BUN and creatinine are 21 and 0.7. Troponin remains at 15 for both measurements. Indicating no acute coronary syndrome. I reviewed the patient's medical record. Reexamination: Patient remained stable. Not tachycardic. No increased work of breathing. No altered mental status. No focal motor deficits. Assessment and plan: Chest pain, noncardiac - Discharged home - Discussed findings and plan with patient. Answered any questions. - All laboratory values were reviewed and interpreted personally by myself, the ER physician - All imaging was reviewed and interpreted personally by myself, the ER physician. - Evaluation and treatment of this problem were appropriate in the emergency setting Lab Data 09/16/23 10:45 09/16/23 10:45 Radiology Impressions Chest X-Ray 09/16/23 10:48 IMPRESSION: No acute findings. Laboratory Results WBC 12.86 10^3/uL (3.29-11.43) H 09/16/23 10:45 RBC 5.55 10^6/uL (3.85-5.65) 09/16/23 10:45 Hgb 15.10 g/dL (11.27-16.99) 09/16/23 10:45 Hct 49.1 % (36-47) H 09/16/23 10:45 MCV 88.5 fl (85-98) 09/16/23 10:45 MCH 27.2 pg (27-33) 09/16/23 10:45 MCHC 30.8 g/dL (30-55) 09/16/23 10:45 RDW 15.9 % (12.1-15.1) H 09/16/23 10:45 Plt Count 184 10^3/cmm (157-399) 09/16/23 10:45 MPV 11.3 fL (7.4-10.4) H 09/16/23 10:45 Neut % (Auto) 79.9 % 09/16/23 10:45 Lymph % (Auto) 9.7 % 09/16/23 10:45 [place] % (Auto) 7.8 % 09/16/23 10:45 Eos % (Auto) 1.9 % 09/16/23 10:45 Baso % (Auto) 0.4 % 09/16/23 10:45 Neut # (Auto) 10.28 10^3/uL (1.8-7.7) H 09/16/23 10:45 Lymph # (Auto) 1.3 10^3/uL (0.8-4.8) 09/16/23 10:45 [place] # (Auto) 1.0 10^3/uL (0.2-0.9) H 09/16/23 10:45 Eos # (Auto) 0.2 10^3/uL (0.0-0.8) 09/16/23 10:45 Baso # (Auto) 0.1 10^3/uL (0.0-0.1) 09/16/23 10:45 Nucleated RBC % (auto) 0 % 09/16/23 10:45 Nucleated RBCs # 0.0 /100WBC 09/16/23 10:45 Sodium 139 mmol/L (136-145) 09/16/23 10:45 Potassium 4.4 mmol/L (3.5-5.1) 09/16/23 10:45 Chloride 100 mmol/L (98-107) 09/16/23 10:45 Carbon Dioxide 26 mmol/L (22-29) 09/16/23 10:45 Anion Gap 17.4 (5-19) 09/16/23 10:45 BUN 21 mg/dL (8-23) 09/16/23 10:45 Creatinine 0.7 mg/dL (0.5-0.9) 09/16/23 10:45 GFR Calculation 82.7 mL/min (90-130) L 09/16/23 10:45 Glucose 217 mg/dL (65-115) H 09/16/23 10:45 Calculated Osmolality 298 mOsm/kg (285-295) H 09/16/23 10:45 Calcium 9.5 mg/dL (8.5-10.5) 09/16/23 10:45 Total Bilirubin 0.5 mg/dL (0.15-1.2) 09/16/23 10:45 AST 15 U/L (0-32) 09/16/23 10:45 ALT 11 U/L (0-33) 09/16/23 10:45 Alkaline Phosphatase 117 U/L (35-105) H 09/16/23 10:45 Troponin T Baseline 16 ng/L (0-10) H 09/16/23 10:45 Troponin T 120 Minute 16.54 ng/L (0-10) H 09/16/23 12:35 Delta Troponin T 0.54 ABS# (0-10) 09/16/23 12:35 NT-Pro-B Natriuret Pep 81 pg/mL (0-125) 09/16/23 12:35 Total Protein 7.5 g/dL (6.6-8.7) 09/16/23 10:45 Albumin 4.2 g/dL (3.5-5.2) 09/16/23 10:45 Globulin 3.3 g/dL (1.3-4.6) 09/16/23 10:45 All radiology interpretation(s) finalized by discharge Discharge Plan Discharge Patient Disposition: Home Clinical Impression: Non-cardiac chest pain Condition: Stable Prescriptions: No Action rosuvastatin 40 mg tablet 40 mg PO DAILY@20 (DME) Diabetic Shoes See Rx Instructions .Route .MEDSUPPLY Qty: 1 0RF Rx Instructions: As directed albuterol sulfate 90 mcg/actuation HFA aerosol inhaler 1 puff INHALATION Q6H PRN (Reason: Shortness Of Breath) Qty: 8.5 3RF ammonium lactate 12 % cream 1 applic topical DAILY@20 Qty: 280 0RF Cough Drops See Rx Instructions .ROUTE .COMPLEX Rx Instructions: may keep at bedside ondansetron 4 mg tablet,disintegrating 4 mg PO Q6H PRN (Reason: nausea and vomiting) Qty: 14 0RF Myrbetriq 25 mg tablet extended release 24 hr 25 mg PO DAILY@0700 promethazine-DM 6.25-15 mg/5 mL Syrup 5 ml PO Q6H PRN (Reason: Cough) hydroxyzine HCl 25 mg Tablet 25 mg PO Q8H PRN (Reason: Anxiety) fluoride (sodium) [SF 5000 Plus] 1.1 % Cream See Rx Instructions .ROUTE .COMPLEX Rx Instructions: brush on teeth bid with use of regular tooth paste do not eat or drink 30 mins after (use at 07:00 & 20:00) aspirin 81 mg tablet,delayed release (DR/EC) 81 mg PO DAILY@07 Acidophilus 175 mg PO DAILY@19 loperamide 2 mg Tablet 2 mg PO QID PRN (Reason: Diarrhea) pantoprazole 40 mg tablet,delayed release (DR/EC) 40 mg PO DAILY@07 insulin aspart U-100 [Novolog U-100 Insulin aspart] 100 unit/mL solution See Rx Instructions .ROUTE .COMPLEX Rx Instructions: PER SLIDING SCALE- CHECK BS AC MEALS AND HS BEFORE SLIDING SCALE @ 05:30,11:00,16:00,20:00 150-200=0 units 201-250=2 units 251-300=4 units 301-350=6 units 351-400=8 units Debrox 6.5 % Drops 5 - 10 drp otic (ear) Q30D Flonase Sensimist 27.5 mcg/actuation [place],Suspension 1 spray INTRANASAL DAILY@0700 roflumilast [Daliresp] 500 mcg tablet 500 mcg PO DAILY@0700 Trelegy Ellipta 100-62.5-25 mcg blister with device 1 inh inhalation DAILY@07 acetaminophen [Tylenol Extra Strength] 500 mg Tablet 1,000 mg PO Q4H MDD 8 tabs PRN (Reason: Pain) magnesium hydroxide [Milk of Magnesia] 400 mg/5 mL Suspension See Rx Instructions .ROUTE .COMPLEX Rx Instructions: 30ML PO ONCE DAILY PRN IF NO BM FOR 3 DAYS gabapentin 300 mg capsule 600 mg PO BID@0700,2000 bisacodyl [Dulcolax (bisacodyl)] 5 mg Tablet,Delayed Release (Dr/Ec) 10 mg PO DAILY PRN (Reason: Constipation) melatonin 5 mg Tablet 5 mg PO BEDTIME@2000 venlafaxine 75 mg Capsule,Extended Release 24hr 75 mg PO DAILY@0700 Saline Nasal 0.65 % Aerosol,[place] See Rx Instructions .ROUTE .COMPLEX Rx Instructions: SQUEEZE INTO DRY NOSTRILS TWICE DAILY THEN FOLLOW WITH BACTROBAN. USE AT 0700 AND 2000 levetiracetam 500 mg tablet See Rx Instructions .ROUTE .COMPLEX Rx Instructions: TAKE 500 MG BY MOUTH IN THE MORNING AND 1,000 MG IN THE PM tramadol 50 mg tablet 50 mg PO Q8H PRN (Reason: pain) Qty: 10 0RF ibuprofen 200 mg Tablet 400 mg PO Q6H PRN (Reason: Pain) nystatin 100,000 unit/gram powder See Rx Instructions .ROUTE .COMPLEX Rx Instructions: APPLY TO AFFECTED AREAS TWICE DAILY NEEDED Ozempic 1 mg/dose (4 mg/3 mL) pen injector 1 mg SUBCUT Q7D zinc acetate 50 mg (zinc) Capsule 50 mg PO DAILY@07 bumetanide 0.5 mg tablet 0.5 mg PO DAILY@07 ipratropium-albuterol 0.5 mg-3 mg(2.5 mg base)/3 mL Solution For Nebulization 3 ml INHALATION Q4H PRN (Reason: Shortness Of Breath) carboxymethylcellulose sodium [Refresh Tears] 0.5 % Drops 1 - 2 drp ophthalmic (eye) .EVERY 2 HOURS PRN (Reason: Dry Eye(S)) clotrimazole 1 % Cream See Rx Instructions .ROUTE .COMPLEX Rx Instructions: apply topically to scales in right foot cholecalciferol (vitamin D3) [Vitamin D3] 50 mcg (2,000 unit) Capsule 50 mcg PO DAILY@07 Jardiance 25 mg Tablet 25 mg PO DAILY@07 lidocaine 5 % Adhesive Patch,Medicated 1 patch TOPICAL DAILY PRN (Reason: Pain) Rx Instructions: leave on most painful area for up to 12 hrs then off for 12 hours PreserVision AREDS [phone] [id number] capsule 1 cap PO BID@07,19 insulin degludec [Tresiba FlexTouch U-100] 100 unit/mL (3 mL) Insulin Pen 10 unit SUBCUT BEDTIME Discharge Orders: Discharge ED (Routine); Ordered 09/16/23 Ordered By: Kathryn Braxton Referrals: Tashi Acosta MD [Primary Care Provider] - Discharge Diet: Usual diet Discharge Activity: Increase activity as tolerated Patient Instructions: Noncardiac Chest Pain (ED) Activity Restrictions/Additional Instructions: Thank you for choosing [facility] for your healthcare needs today. Please realize this is an emergency room and that we are providing you with a medical screening exam and this may not be complete and all inclusive of all the testing and or work up that you may need to determine your ailment or severity of your illness. You have been screened and evaluated and felt safe for discharge. Health conditions do change or evolve sometimes and as such it is important that you follow up with your Primary Doctor to be re checked, 3-5 days is a general good time frame for follow up. You are always welcome to return to the ED for re assessment if your symptoms are worsening or you have new concerns Coding Level of Care Code ED Radio Broadcaster for Kanchan Abdi
[2023-09-16 10:53] LABS: Basophils # 0.1 10^3/uL (0.0-0.1); Basophils % 0.4 %; Eosinophils # 0.2 10^3/uL (0.0-0.8); Eosinophils % 1.9 %; Hematocrit 49.1 % (36-47); Lymphocytes # 1.3 10^3/uL (0.8-4.8); Lymphocytes % 9.7 %; Mean Corpuscular HGB Conc 30.8 g/dL (30-55); Mean Corpuscular Hemoglobin 27.2 pg (27-33); Mean Corpuscular Volume 88.5 fl (85-98); Mean Platelet Volume 11.3 fL (7.4-10.4); Monocytes % 7.8 %; Neutrophils # 10.28 10^3/uL (1.8-7.7); Neutrophils % 79.9 %; Nucleated Red Blood Cells % 0 %; Platelet Count 184 10^3/cmm (157-399); Red Blood Count 5.55 10^6/uL (3.85-5.65); Red Cell Distribution Width 15.9 % (12.1-15.1); White Blood Count 12.86 10^3/uL (3.29-11.43)
[2023-09-16 11:11] VITALS: BP 102/66; PULSE 83; O2SAT 94
[2023-09-16 11:11] LABS: Troponin(5th) Baseline 16 ng/L (0-10)
[2023-09-16 11:14] LABS: Alanine Aminotransferase 11 U/L (0-33); Albumin Level 4.2 g/dL (3.5-5.2); Alkaline Phosphatase 117 U/L (35-105); Aspartate Amino Transferase 15 U/L (0-32); Blood Urea Nitrogen 21 mg/dL (8-23); Calcium 9.5 mg/dL (8.5-10.5); Carbon Dioxide 26 mmol/L (22-29); Chloride 100 mmol/L (98-107); Creatinine Clr Calc Pharmacy 92.7735; Globulin 3.3 g/dL (1.3-4.6); Glomerular Filtration Rate 82.7 mL/min (90-130); Glucose 217 mg/dL (65-115); Osmolality Calculated 298 mOsm/kg (285-295); Sodium 139 mmol/L (136-145); Total Bilirubin 0.5 mg/dL (0.15-1.2); Total Protein 7.5 g/dL (6.6-8.7)
[2023-09-16 11:26] LABS: Anion Gap 17.4 (5-19); Potassium 4.4 mmol/L (3.5-5.1)
[2023-09-16 12:33] VITALS: BP 107/89; PULSE 90; O2SAT 95
[2023-09-16 13:05] LABS: Troponin 5 2HR 16.54 ng/L (0-10); Troponin 5 2HR Delta 0.54 ABS# (0-10)
[2023-09-16 13:13] LABS: NT Pro B Type Natriuretic Pept 81 pg/mL (0-125)
--- NOTE | 2023-09-16 13:35 | ECG_ITS ---
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 Measurements Intervals [place] Rate: 87 P: 54 AK: 172 QRS: 68 QRSD: 102 T: 57 QT: 381 QTc: 460 Interpretive Statements SINUS RHYTHM Compared to ECG 09/16/2023 10:42:49 No significant changes Electronically Signed On 09-16-2023 21:12:14 CDT by Jay Adler M.D. [id number]
[2023-09-16 14:14] VITALS: BP 107/63; PULSE 68; O2SAT 97
[2023-09-16 15:15] VITALS: BP 107/63; PULSE 68; RESP 16; TEMP 36.7; O2SAT 97
== END 2023-09-16 15:16 | disposition home or self-care (01) ==
PROVIDERS: Emergency Provider Emergency Medicine; PCP Family Medicine
DX: R07.89 Other chest pain (principal); Z79.82 Long term (current) use of aspirin; Z79.4 Long term (current) use of insulin; Z79.85 Long-term (current) use of injectable non-insulin antidiabetic drugs; J44.9 Chronic obstructive pulmonary disease, unspecified; I11.0 Hypertensive heart disease with heart failure; I50.33 Acute on chronic diastolic (congestive) heart failure; I42.8 Other cardiomyopathies; E78.5 Hyperlipidemia, unspecified; E11.9 Type 2 diabetes mellitus without complications; F17.210 Nicotine dependence, cigarettes, uncomplicated
CPT/HCPCS: 36415; 71045; 80053; 83880; 84484; 85025; 93005; 99285

== ENCOUNTER 2023-09-20 09:46 | Inpatient (IN) | payer MEDICARE, MEDICAID, SELFPAY ==
[2023-09-20] VITALS (12 sets, daily range): BP systolic 100–117; BP diastolic 45–71; PULSE 87–101; RESP 17–22; TEMP 36.5–36.8; O2SAT 94–97; BMI 42.5
--- NOTE | 2023-09-20 09:51 | XRR_ITS ---
PROCEDURE INFORMATION: Exam: XR Chest Exam date and time: 09/20/2023 10:02 AM Age: 68 years old Clinical indication: Cough and dyspnea; Additional info: Dyspnea/cough TECHNIQUE: Imaging protocol: Radiologic exam of the chest. Views: 1 view. COMPARISON: CR (CHEST, ) 09/16/2023 10:59 AM FINDINGS: Lungs: There is bilateral vascular congestion. More focal wedge-shaped infiltrate is seen involving the left hilum and extending peripherally possibly involving the lingula. Pleural spaces: Unremarkable. No pleural effusion. No pneumothorax. Heart/Mediastinum: The heart is enlarged. Bones/joints: Unremarkable. XR/XR chest 1V portable [id number] IMPRESSION: 1. Cardiomegaly with mild vascular congestion. 2. Suspect infiltrate/pneumonia likely involving the lingula. At minimum would recommend short-term follow-up after therapy to document clearing. CT thorax with contrast would be of benefit to exclude a central mass.
--- NOTE | 2023-09-20 09:51 | W.ED.GENADLT ---
HPI - General Adult General: Chief complaint: Upper Respiratory Infection Stated complaint: sinus infection, SOB (nurse with her), ear pain Time Seen by Provider: 09/20/23 09:51 Source: patient Mode of arrival: ambulatory History of Present Illness: 68-year-old female presents emergency room with complaints of shortness of breath and cough along with chest pain. This been intermittently for the last several days she was seen 5 days ago for chest pain and workup was negative. She is still intermittently having chest pain she knows shortness of breath chest pain with exertion and with lying down she has more shortness of breath. She denies fever or productive cough. She has no known history of coronary artery disease but states she has has have cardiomyopathy. Location: chest Associated symptoms: Reports chest pain and dyspnea; Deny nausea, rash or vomiting Review of Systems Const: Denies: fever(s) or chills Card: Reports: chest pain, dyspnea on exertion and orthopnea Resp: Reports: dyspnea, non-productive cough and wheezing GI: Denies: abdominal pain, nausea or vomiting : Denies: dysuria, urinary frequency or urinary urgency Musc: Denies: neck pain or back pain Skin/Breast: Denies: rash PFSH ED PFSH: Medical History Acute exacerbation of chronic obstructive airways disease T12 vertebral fracture Small bowel obstruction Benign essential hypertension with target blood pressure below 140/90 Restrictive lung disease Chronic respiratory failure with hypoxia and hypercapnia Sleep apnea Obesity hypoventilation syndrome Acute on chronic diastolic (congestive) heart failure Nonischemic cardiomyopathy Moderate to severe mitral regurgitation Depression Seizure disorder Hyperlipidemia Type 2 diabetes mellitus Hypertension Obstructive sleep apnea Tricuspid regurgitation Obesity COPD (chronic obstructive pulmonary disease) Diastolic congestive heart failure Pulmonary hypertension Surgical History Ulnar nerve compression History of H/O mitral valve replacement Family History Brother CAD (coronary artery disease) Sister CAD (coronary artery disease) Grandmother Diabetes Mother Stroke Denies family history of Clotting disorder Dementia Chronic kidney disease (CKD) Suicide Anesthesia complication Bleeding disorder Lung disease Cancer Social History Smoking and tobacco/nicotine status: current every day tobacco/nicotine user cigarettes Packs smoked per day: 0.25 Years cigarettes smoked: 33 [ Other cigarette details: Hx of 1PPD x 30 Years, started 1991] Second hand smoke exposure: Yes Alcohol intake: never Substance/Drug Use: never Caregiver/support person: Yes Lives independently: No Housing: Assisted Living Facility Marital status: / Current occupational status: retired and disabled Do you think of yourself as: Straight/Heterosexual Current gender identity: Female Physical Exam Const: GENERAL APPEARANCE: cooperative and comfortable ORIENTATION/CONSCIOUSNESS: Yes awake, Yes oriented to person, Yes oriented to place and Yes oriented to time HENMT: COMMON NORMALS: normocephalic, atraumatic and hearing grossly normal bilaterally HEAD & SCALP: normocephalic and atraumatic Resp: COMMON NORMALS: normal respiratory effort, No retractions and No use of accessory muscles AUSCULTATION: rales on the left at the base and wheezes Cardio: COMMON NORMALS: regular rate, regular rhythm and No murmurs present (Cardio) RATE: regular rate RHYTHM: regular rhythm GI: COMMON NORMALS: Soft to palpation and No hepatosplenomegaly present AUSCULTATION: Yes normoactive bowel sounds PALPATION: Yes Soft to palpation, No Tenderness to palpation present (GI), No Guarding due to palpation present (GI) and Yes No hepatosplenomegaly present Extremity: COMMON NORMALS: normal to inspection, capillary refill normal, no clubbing, cyanosis or edema, no calf tenderness and no pedal edema Neuro: SENSORIUM/ORIENTATION: Yes oriented to person, Yes oriented to place and Yes oriented to time Skin: COMMON NORMALS: no rashes or lesions noted GENERAL SKIN EXAM: no rashes or lesions noted Course Vital Signs: Vital signs: Vital Signs Temperature 98.2 F 09/20/23 10:02 Pulse Rate 101 H 09/20/23 11:41 Respiratory Rate 22 H 09/20/23 10:21 Blood Pressure 100/45 09/20/23 11:41 Pulse Oximetry 97 09/20/23 11:41 Oxygen Delivery Me thod Nasal Cannula 09/20/23 11:41 Oxygen Flow Rate 2 09/20/23 11:41 MDM - General Adult Medical Decision Making Patient evaluated found to have a left lower lobe pneumonia. She has a slight elevation of her lactic acid her blood pressures have borderline. We did give her fluid bolus for her height and ideal weight would be 50 kg and we adjusted her fluid bolus to 1500 mL based on this. Discussed with Dr. Murray will admit orders written. Incidental finding cystitis Medical Records I reviewed the patient's medical records. Lab Data I reviewed the patient's lab results. 09/20/23 10:47 09/20/23 10:47 Radiology Impressions Chest X-Ray 09/20/23 09:51 IMPRESSION: 1. Cardiomegaly with mild vascular congestion. 2. Suspect infiltrate/pneumonia likely involving the lingula. At minimum would recommend short-term follow-up after therapy to document clearing. CT thorax with contrast would be of benefit to exclude a central mass. Laboratory Results WBC 13.88 10^3/uL (3.29-11.43) H 09/20/23 10:47 RBC 5.04 10^6/uL (3.85-5.65) 09/20/23 10:47 Hgb 13.30 g/dL (11.27-16.99) 09/20/23 10:47 Hct 45.8 % (36-47) 09/20/23 10:47 MCV 90.9 fl (85-98) 09/20/23 10:47 MCH 26.4 pg (27-33) L 09/20/23 10:47 MCHC 29.0 g/dL (30-55) L 09/20/23 10:47 RDW 16.0 % (12.1-15.1) H 09/20/23 10:47 Plt Count 244 10^3/cmm (157-399) 09/20/23 10:47 MPV 10.7 fL (7.4-10.4) H 09/20/23 10:47 Neut % (Auto) 81.8 % 09/20/23 10:47 Lymph % (Auto) 7.1 % 09/20/23 10:47 Barnes % (Auto) 9.4 % 09/20/23 10:47 Eos % (Auto) 0.6 % 09/20/23 10:47 Baso % (Auto) 0.4 % 09/20/23 10:47 Neut # (Auto) 11.37 10^3/uL (1.8-7.7) H 09/20/23 10:47 Lymph # (Auto) 1.0 10^3/uL (0.8-4.8) 09/20/23 10:47 Barnes # (Auto) 1.3 10^3/uL (0.2-0.9) H 09/20/23 10:47 Eos # (Auto) 0.1 10^3/uL (0.0-0.8) 09/20/23 10:47 Baso # (Auto) 0.1 10^3/uL (0.0-0.1) 09/20/23 10:47 Nucleated RBC % (auto) 0 % 09/20/23 10:47 Nucleated RBCs # 0.0 /100WBC 09/20/23 10:47 Specimen Type Arterial 09/20/23 10:18 Sample Site Brachial, left 09/20/23 10:18 ABG pH 7.34 (7.35-7.45) L 09/20/23 10:18 ABG pCO2 41.6 mmHg (35-45) 09/20/23 10:18 ABG pO2 66.9 mmHg (80.0-100.0) L 09/20/23 10:18 ABG HCO3 22.4 mmol/L (22-26) 09/20/23 10:18 ABG O2 Saturation 94.6 09/20/23 10:18 ABG Base Excess -3.3 mmol/L (-2.0-2.0) L 09/20/23 10:18 Miguel Test Pos 09/20/23 10:18 A-a O2 Gradient 4.0 mmHg (5-10) L 09/20/23 10:18 Hematocrit 40.7 % (37-47) 09/20/23 10:18 Hgb O2 Saturation 92.3 % (95-100) L 09/20/23 10:18 Carboxyhemoglobin 2.2 %THgb (0.4-20.1) 09/20/23 10:18 Methemoglobin 0.4 % (0.4-1.5) 09/20/23 10:18 Total Hemoglobin 13.3 g/dL (12-16) 09/20/23 10:18 Sodium 140.0 mmol/L (131-143) 09/20/23 10:18 Potassium 3.8 mmol/L (3.5-5.0) 09/20/23 10:18 Glucose 148.0 mg/dL (70-115) H 09/20/23 10:18 Ionized Calcium 1.2 mmol/L (1.1-1.4) 09/20/23 10:18 O2 Delivery Device Nc 09/20/23 10:18 O2 Liters/Min 2.0 % 09/20/23 10:18 Human Resources Operations Manager ID Broma 09/20/23 10:18 Sodium 137 mmol/L (136-145) 09/20/23 10:47 Potassium 3.8 mmol/L (3.5-5.1) 09/20/23 10:47 Chloride 98 mmol/L (98-107) 09/20/23 10:47 Carbon Dioxide 19 mmol/L (22-29) L 09/20/23 10:47 Anion Gap 23.8 (5-19) H 09/20/23 10:47 BUN 15 mg/dL (8-23) 09/20/23 10:47 Creatinine 0.8 mg/dL (0.5-0.9) 09/20/23 10:47 GFR Calculation 70.9 mL/min (90-130) L 09/20/23 10:47 Glucose 158 mg/dL (65-115) H 09/20/23 10:47 Calculated Osmolality 288 mOsm/kg (285-295) 09/20/23 10:47 Lactic Acid 2.3 mmol/L (0.5-2.2) H 09/20/23 10:47 Calcium 8.8 mg/dL (8.5-10.5) 09/20/23 10:47 Total Bilirubin 0.3 mg/dL (0.15-1.2) 09/20/23 10:47 AST 18 U/L (0-32) 09/20/23 10:47 ALT 15 U/L (0-33) 09/20/23 10:47 Alkaline Phosphatase 193 U/L (35-105) H 09/20/23 10:47 Creatine Kinase 38 U/L (26-192) 09/20/23 10:47 Troponin T Baseline 17 ng/L (0-10) H 09/20/23 10:47 NT-Pro-B Natriuret Pep 363 pg/mL (0-125) H 09/20/23 10:47 Total Protein 7.9 g/dL (6.6-8.7) 09/20/23 10:47 Albumin 3.1 g/dL (3.5-5.2) L 09/20/23 10:47 Globulin 4.8 g/dL (1.3-4.6) H 09/20/23 10:47 Urine Color Yellow (Yellow) 09/20/23 11:35 Urine Appearance Clear (CLEAR) 09/20/23 11:35 Urine pH 5 (5-7) 09/20/23 11:35 Ur Specific [place] 1.020 (1.005-1.030) 09/20/23 11:35 Urine Protein 1+ (Negative) H 09/20/23 11:35 Urine Glucose (UA) 4+ (Normal) H 09/20/23 11:35 Urine Ketones 1+ (Negative) H 09/20/23 11:35 Urine Blood 2+ (Negative) H 09/20/23 11:35 Urine Nitrate Negative (Negative) 09/20/23 11:35 Urine Bilirubin Neg (Negative) 09/20/23 11:35 Urine Urobilinogen Neg mg/dL (Negative) 09/20/23 11:35 Ur Leukocyte Esterase Negative (Negative) 09/20/23 11:35 Urine RBC 0-4 /hpf (0-2) H 09/20/23 11:35 Urine WBC 5-10 /hpf (0-5) H 09/20/23 11:35 Ur Squamous Epith Cells 0-4 /hpf (0-5) H 09/20/23 11:35 Amorphous Sediment 1+ /hpf 09/20/23 11:35 Urine Bacteria 3+ /hpf (NONE) H 09/20/23 11:35 Coarse Granular Casts 5-10 /lpf H 09/20/23 11:35 Urine Mucus Trace /hpf 09/20/23 11:35 All radiology interpretation(s) finalized by discharge Discharge Plan Discharge Patient Disposition: Admitted As Inpatient Clinical Impression: Decompensated COPD with exacerbation (chronic obstructive pulmonary disease), Pneumonia, Sepsis, Cystitis Condition: Stable Coding Level of Care Code ED Chief Development Officer for Kanchan Abdi
--- NOTE | 2023-09-20 10:09 | ECG_ITS ---
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 Measurements Intervals Emblem Rate: 99 P: 48 GA: 180 QRS: 80 QRSD: 101 T: 66 QT: 368 QTc: 473 Interpretive Statements SINUS RHYTHM POSSIBLE LEFT ATRIAL ENLARGEMENT [-0.1mV P-WAVE IN V1/V2] Compared to ECG 09/16/2023 13:35:14 No significant changes Electronically Signed On 09-20-2023 10:59:37 CDT by Eliezer Mills M.D. [email or web address]/store/[id number] f
[2023-09-20] MEDS: ipratropium-albuterol 3 mL Neb INHALATION ×4 (10:20→23:33)
--- NOTE | 2023-09-20 10:29 | PC.PHAR ---
PT IS FROM [facility] [phone] MED LIST 09/20/23 10:30AM
[2023-09-20 10:30] LABS: ABG PCO2 41.6 mmHg (35-45); ABG PH Result 7.34 (7.35-7.45); Arterial Blood Gas Hematocrit 40.7 % (37-47); Base Excess ABG -3.3 mmol/L (-2.0-2.0); Blood Gas Allen Test Pos; Blood Gas Operator Identificat BROMA; Blood Gas Sample Site Brachial, left; Blood Gas Sample Type Arterial; Carboxyhemoglobin 2.2 %THgb (0.4-20.1); HCO3 ABG 22.4 mmol/L (22-26); HGB O2 Sat 92.3 % (95-100); Ionized Calcium Level - ABG 1.2 mmol/L (1.1-1.4); Methemoglobin 0.4 % (0.4-1.5); Oxygen Device NC; Oxygen Saturation ABG 94.6; PO2 ABG 66.9 mmHg (80.0-100.0); Potassium Level - ABG 3.8 mmol/L (3.5-5.0); Total Hemoglobin 13.3 g/dL (12-16)
[2023-09-20] MEDS: dexamethasone 10 mg/mL INJ IM (10:52)
[2023-09-20 11:12] LABS: Troponin(5th) Baseline 17 ng/L (0-10)
[2023-09-20 11:13] LABS: Lactic Sepsis W/Reflex 2.3 mmol/L (0.5-2.2)
[2023-09-20 11:21] LABS: NT Pro B Type Natriuretic Pept 363 pg/mL (0-125)
[2023-09-20 11:29] LABS: Basophils # 0.1 10^3/uL (0.0-0.1); Basophils % 0.4 %; Eosinophils # 0.1 10^3/uL (0.0-0.8); Eosinophils % 0.6 %; Hematocrit 45.8 % (36-47); Lymphocytes % 7.1 %; Mean Corpuscular Hemoglobin 26.4 pg (27-33); Mean Corpuscular Volume 90.9 fl (85-98); Mean Platelet Volume 10.7 fL (7.4-10.4); Monocytes # 1.3 10^3/uL (0.2-0.9); Monocytes % 9.4 %; Neutrophils # 11.37 10^3/uL (1.8-7.7); Neutrophils % 81.8 %; Nucleated Red Blood Cells % 0 %; Platelet Count 244 10^3/cmm (157-399); Red Blood Count 5.04 10^6/uL (3.85-5.65); White Blood Count 13.88 10^3/uL (3.29-11.43)
[2023-09-20 11:40] LABS: Alanine Aminotransferase 15 U/L (0-33); Albumin Level 3.1 g/dL (3.5-5.2); Alkaline Phosphatase 193 U/L (35-105); Anion Gap 23.8 (5-19); Aspartate Amino Transferase 18 U/L (0-32); Blood Urea Nitrogen 15 mg/dL (8-23); Calcium 8.8 mg/dL (8.5-10.5); Carbon Dioxide 19 mmol/L (22-29); Chloride 98 mmol/L (98-107); Creatine Phosphokinase 38 U/L (26-192); Creatinine Clr Calc Pharmacy 89.0258; Globulin 4.8 g/dL (1.3-4.6); Glomerular Filtration Rate 70.9 mL/min (90-130); Glucose 158 mg/dL (65-115); Osmolality Calculated 288 mOsm/kg (285-295); Potassium 3.8 mmol/L (3.5-5.1); Sodium 137 mmol/L (136-145); Total Bilirubin 0.3 mg/dL (0.15-1.2); Total Protein 7.9 g/dL (6.6-8.7)
--- NOTE | 2023-09-20 11:51 | ECG_ITS ---
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 Measurements Intervals [place] Rate: 99 P: 47 NJ: 172 QRS: 76 QRSD: 98 T: 68 QT: 367 QTc: 472 Interpretive Statements SINUS RHYTHM POSSIBLE LEFT ATRIAL ENLARGEMENT [-0.1mV P-WAVE IN V1/V2] Compared to ECG 09/20/2023 09:58:00 No significant changes Electronically Signed On 09-20-2023 20:23:18 CDT by Eliezer Mills M.D. [id number]
[2023-09-20 11:52] LABS: Add Urine Microscopic? YES; Bilirubin Urine Neg (Negative); Blood Urine 2+ (Negative); Glucose Urine UA 4+ (Normal); Ketones Urine 1+ (Negative); Leukocyte Esterase Urine Negative (Negative); Nitrate Urine Negative (Negative); Protein Urine 1+ (Negative); Urine Appearance Clear (CLEAR); Urine Color Yellow (Yellow); Urobilinogen Urine Neg (Negative); pH Urine 5 (5-7)
[2023-09-20] MEDS: azithromycin 500 MG in sodium chloride 0.9% 250 ML 250 MG IV (11:52)
[2023-09-20 11:53] LABS: RBC Urine 0-4 /hpf (0-2)
[2023-09-20 11:54] LABS: Squamous Epithelial Cell Urine 0-4 /hpf (0-5)
[2023-09-20 11:55] LABS: Add Urine Culture? Yes; Amorphous Sediment Urine 1+ /hpf; Bacteria Urine 3+ /hpf; Mucus Urine TRACE /hpf
[2023-09-20 12:39] LABS: Reflex Lactate Order REFLEX LACTIC ORDERD
[2023-09-20] MEDS: sodium chloride 0.9% 1,000 ML 999 ML IV (13:09)
[2023-09-20] MEDS: cefTRIAXone 2,000 mg SDV 2000 MG IVP (13:09)
[2023-09-20 13:16] LABS: Troponin 5 2HR 16.82 ng/L (0-10)
[2023-09-20 13:31] LABS: Troponin 5 2HR Delta -0.18 ABS# (0-10)
[2023-09-20 13:58] LABS: Procalcitonin 0.65 ng/mL (0-0.5)
--- NOTE | 2023-09-20 14:22 | P.HP_ITS ---
Providers/Chief Complaint 2 Admitting Physician: Mathtias Booker MD Primary Care Provider: Tashi Acosta MD Chief Complaint: sinus infection, SOB (nurse with her), ear pain History of Present Illness Yaquelin Loera is a 68 year old female with a past medical history of COPD, type 2 diabetes mellitus, obesity, who presents [facility] for cough, shortness of breath, subjective fevers, fatigue, malaise. Patient tells me that she lives alone applied, with 36 other people, there is been sick people at their residence, she has been experiencing shortness of breath, cough, fatigue, malaise, she reports smoking, few cigarettes a day, Review of Systems 2 Const: Reports: fever(s), fatigue and malaise Resp: Reports: dyspnea and productive cough GI: Denies: abdominal pain Medications/Allergies Home Medications Medication Instructions Recorded Confirmed Last Taken Type acetaminophen 500 mg tablet 500 mg PO Q6H PRN Pain 05/16/19 09/20/23 11/08/20 History (Tylenol Extra Strength) bisacodyl 5 mg tablet,delayed 10 mg PO DAILY PRN Constipation 05/16/19 09/20/23 Unknown History release (Dulcolax (bisacodyl)) carbamide peroxide 6.5 % ear drops 10 drp otic (ear) Q30D 05/16/19 09/20/23 09/06/23 History (Debrox) fluticasone fur. 100 mcg-umeclid 1 inh inhalation DAILY@05/16/19 09/20/23 09/20/23 History 62.5 mcg-vilant 25 mcg inhalat.powder (Trelegy Ellipta) gabapentin 300 mg capsule 600 mg PO BID@699,199905/16/19 09/20/23 09/20/23 History magnesium hydroxide 400 mg/5 mL 30 ml PO DAILY PRN Constipation 05/16/19 09/20/23 Unknown History oral suspension (Milk of Magnesia) melatonin 5 mg tablet 5 mg PO BEDTIME@199905/16/19 09/20/23 09/19/23 History roflumilast 500 mcg tablet 500 mcg PO DAILY@69905/16/19 09/20/23 09/20/23 History (Daliresp) sodium chloride 0.65 % nasal spray See Rx Instructions .Route .COMPLEX 05/31/19 09/20/23 09/20/23 History aerosol (Saline Nasal) venlafaxine 75 mg capsule,extended 75 mg PO DAILY@69905/31/19 09/20/23 09/20/23 History release 24 hr levetiracetam 500 mg tablet See Rx Instructions .Route .COMPLEX 06/03/19 09/20/23 09/20/23 History Cough Drops See Rx Instructions .Route .COMPLEX 01/30/20 09/20/23 Unknown History ondansetron 4 mg disintegrating 4 mg PO Q6H PRN nausea and 01/30/20 09/20/23 10/28/20 06:49 Rx tablet vomiting #14 tabs mirabegron 25 mg tablet,extended 25 mg PO DAILY@69910/28/20 09/20/23 09/20/23 History release 24 hr (Myrbetriq) promethazine-DM 6.25 mg-15 mg/5 mL 5 ml PO Q6H PRN Cough 10/28/20 09/20/23 Unknown History oral syrup aspirin 81 mg tablet,delayed 81 mg PO DAILY@12/09/20 09/20/23 09/20/23 History release fluoride (sodium) 1.1 % dental See Rx Instructions .Route .COMPLEX 12/09/20 09/20/23 09/20/23 History cream (SF 5000 Plus) loperamide 2 mg tablet 2 mg PO QID PRN Diarrhea 12/09/20 09/20/23 Unknown History pantoprazole 40 mg tablet,delayed 40 mg PO DAILY@12/09/20 09/20/23 09/20/23 History release albuterol sulfate 90 mcg/actuation 1 puff inhalation Q6H PRN 07/22/21 09/20/23 Unknown Rx aerosol inhaler Shortness Of Breath #8.5 grams rosuvastatin 40 mg tablet 40 mg PO DAILY@09/08/21 09/20/23 09/19/23 History Diabetic Shoes #1 ea 11/03/21 09/20/23 Unknown Rx bumetanide 0.5 mg tablet 0.5 mg PO DAILY@01/05/22 09/20/23 09/20/23 History carboxymethylcellulose sodium 0.5 1 - 2 drp ophthalmic (eye) QID PRN 01/05/22 09/20/23 09/20/23 History % eye drops (Refresh Tears) Dry Eye(S) clotrimazole 1 % topical cream See Rx Instructions .Route .COMPLEX 01/05/22 09/20/23 09/19/23 History ipratropium 0.5 mg-albuterol 3 mg 3 ml inhalation Q4H PRN Shortness 01/05/22 09/20/23 Unknown History (2.5 mg base)/3 mL nebulization Of Breath soln tramadol 50 mg tablet 50 mg PO Q8H PRN pain #10 tabs 04/29/22 09/20/23 Unknown Rx cholecalciferol (vitamin D3) 50 50 mcg PO DAILY@07/09/22 09/20/23 09/20/23 History mcg (2,000 unit) capsule (Vitamin D3) empagliflozin 25 mg tablet 25 mg PO DAILY@07/09/22 09/20/23 09/20/23 History (Jardiance) insulin degludec 100 unit/mL (3 10 unit SUBCUT BEDTIME 07/09/22 09/20/23 09/19/23 History mL) subcutaneous pen (Tresiba FlexTouch U-100 insulin) lidocaine 5 % topical patch 1 patch topical DAILY PRN Pain 07/09/22 09/20/23 Unknown History vitamins A,C,S-dnxt-mmyudv 4,296 1 cap PO BID@07,19 07/09/22 09/20/23 09/20/23 History mcg-226 mg-90 mg capsule (PreserVision AREDS) nystatin 100,000 unit/gram topical 1 applic topical BID PRN Skin 01/21/23 09/20/23 Unknown History powder Irritation semaglutide 1 mg/dose (4 mg/3 mL) 1 mg SUBCUT Q7D 01/21/23 09/20/23 09/17/23 History subcutaneous pen injector (Ozempic) L.acidophil,salivari-Bifido 1 cap PO QPM 09/20/23 09/20/23 09/19/23 History bifidum-Strep thermoph 175 mg capsule (Acidophilus Probiotic Blend) ammonium lactate 12 % topical cream 1 applic topical BEDTIME 09/20/23 09/20/23 09/19/23 History fluticasone propionate 50 1 spray intranasal QAM 09/20/23 09/20/23 09/20/23 History mcg/actuation nasal spray,suspension hydrocortisone 1 % topical cream 1 applic topical TID PRN Skin 09/20/23 09/20/23 Unknown History Irritation hydroxyzine pamoate 25 mg capsule 25 mg PO Q8H PRN Anxiety 09/20/23 09/20/23 Unknown History phenylephrine 0.25 %-mineral oil 1 applic NE TID PRN PAIN OR ITCHING 09/20/23 09/20/23 Unknown History 14 %-petrolatm 74.9 % rectal ointment (Preparation H) terbinafine HCl 1 % topical cream See Rx Instructions .Route .COMPLEX 09/20/23 09/20/23 09/20/23 History triamcinolone acetonide 0.1 % 1 applic topical BID 09/20/23 09/20/23 09/20/23 History topical ointment Allergies Allergy/AdvReac Type Severity Reaction Status Date / Time metformin Allergy ADR-Dry Verified 09/20/23 10:07 Mucus Membranes Penicillins Allergy ALGY-Anaphy Verified 09/20/23 10:07 laxis Sulfa (Sulfonamide Allergy ALGY-Anaphy Verified 09/20/23 10:07 Antibiotics) laxis PFSH Acute 2 PFSH: Medical History Acute exacerbation of chronic obstructive airways disease T12 vertebral fracture Small bowel obstruction Benign essential hypertension with target blood pressure below 140/90 Restrictive lung disease Chronic respiratory failure with hypoxia and hypercapnia Sleep apnea Obesity hypoventilation syndrome Acute on chronic diastolic (congestive) heart failure Nonischemic cardiomyopathy Moderate to severe mitral regurgitation Depression Seizure disorder Hyperlipidemia Type 2 diabetes mellitus Hypertension Obstructive sleep apnea Tricuspid regurgitation Obesity COPD (chronic obstructive pulmonary disease) Diastolic congestive heart failure Pulmonary hypertension Surgical History Ulnar nerve compression History of H/O mitral valve replacement Family History Brother CAD (coronary artery disease) Sister CAD (coronary artery disease) Grandmother Diabetes Mother Stroke Denies family history of Clotting disorder Dementia Chronic kidney disease (CKD) Suicide Anesthesia complication Bleeding disorder Lung disease Cancer Social History Smoking and tobacco/nicotine status: current every day tobacco/nicotine user cigarettes Packs smoked per day: 0.25 Years cigarettes smoked: 33 [ Other cigarette details: Hx of 1PPD x 30 Years, started 1991] Second hand smoke exposure: Yes Alcohol intake: never Substance/Drug Use: never Caregiver/support person: Yes Lives independently: No Housing: Assisted Living Facility Marital status: / Current occupational status: retired and disabled Do you think of yourself as: Straight/Heterosexual Current gender identity: Female Vitals/I&O/Wt Last Vital Signs Temp 98.2 F 09/20/23 10:02 Pulse 101 H 09/20/23 11:41 Resp 22 H 09/20/23 10:21 BP 112/69 09/20/23 12:43 Pulse Ox 97 09/20/23 11:41 O2 Del Method Nasal Cannula 09/20/23 11:41 O2 Flow Rate 2 09/20/23 11:41 09/19/23 09/20/23 09/20/23 22:59 06:59 14:59 Intake Total 250 / 250 Balance 250 / 250 Weight last 48 hrs Weight 87.09 kg Weight 86.183 kg Physical Exam 2 Const: COMMON NORMALS: no acute distress and patient oriented x3 HENMT: COMMON NORMALS: normocephalic HEAD & SCALP: normocephalic Eye: COMMON NORMALS: Equal, round and reactive pupils present Neck/C-Spine: COMMON NORMALS: no JVD Resp: COMMON NORMALS: normal respiratory effort, No retractions and No use of accessory muscles AUSCULTATION: crackles and wheezes Cardio: COMMON NORMALS: no JVD, regular rate, regular rhythm, S1 normal heart sound present and S2 normal heart sound present RATE: regular rate RHYTHM: regular rhythm HEART SOUNDS: S1 normal heart sound present and S2 normal heart sound present GI: COMMON NORMALS: Normal to inspection, nondistended, normoactive bowel sounds present, Soft to palpation and non-tender Extremity: COMMON NORMALS: no calf tenderness and no pedal edema Neuro: COMMON NORMALS: patient oriented x3, CN's II-XII intact bilaterally and moves all extremities Psych: COMMON NORMALS: mental status grossly normal Data 09/20/23 10:47 09/20/23 10:47 Micro: Microbiology 09/20/23 13:50 Blood Culture - Preliminary Blood SPECIMEN COLLECTED 09/20/23 13:48 Blood Culture - Preliminary Blood SPECIMEN COLLECTED A&P Assessment and plan (1) Acute hypoxic respiratory failure: (2) Pneumonia: (3) COPD exacerbation: (4) Benign essential hypertension with target blood pressure below 140/90: (5) Acute diastolic heart failure: (6) Tricuspid valve regurgitation, secondary: (7) PAD (peripheral artery disease): (8) Nicotine dependence, cigarettes, with unspecified nicotine-induced disorders: (9) NSTEMI (non-ST elevated myocardial infarction): Plan Acute hypoxic respiratory failure Secondary pneumonia Secondary COPD exacerbation ? Plan ? Received Rocephin in the emergency room, no anaphylactic reaction no allergic reaction, will continue ? Azithromycin ? Solu-Medrol ? DuoNeb exacerbate asthma ? Monitor respiratory status closely ? Respiratory viral panel ? Type 2 diabetes mellitus, monitor for signs scale ? Full code ? Lovenox for DVT prophylaxis Attestations 2 Medical Necessity Statement*: His hospitalization, inpatient, greater than 2 midnight, for acute hypoxic respiratory failure secondary to pneumonia, COPD exacerbation Diagnoses Acute hypoxic respiratory failure J96.01 Pneumonia J18.9 COPD exacerbation J44.1 Benign essential hypertension with target blood pressure below 140/90 I10 Acute diastolic heart failure I50.31 Tricuspid valve regurgitation, secondary I07.1 PAD (peripheral artery disease) I73.9 Nicotine dependence, cigarettes, with unspecified nicotine-induced disorders F17.219 NSTEMI (non-ST elevated myocardial infarction) I21.4
[2023-09-20 14:27] LABS: Lactic Acid level (Lactate) 1.8 mmol/L (0.5-2.2)
[2023-09-20 14:36] LABS: Adenovirus Not Detected (NOT DETECT); Chlamydia Pneumoniae Not Detected (NOT DETECT); Coronavirus 229E,HKU1,NL63,OC4 Not Detected (NOT DETECT); Human Metapneumovirus Not Detected (NOT DETECT); Human Rhinovirus/Enterovirus Not Detected (NOT DETECT); Influenza A Not Detected (NOT DETECT); Influenza A H1 Not Detected (NOT DETECT); Influenza A H1-2009 Not Detected (NOT DETECT); Influenza A H3 Not Detected (NOT DETECT); Influenza B Not Detected (NOT DETECT); Mycoplasma Pneumoniae Not Detected (NOT DETECT); Parainfluenza Virus Type 1 Not Detected (NOT DETECT); Parainfluenza Virus Type 2 Not Detected (NOT DETECT); Parainfluenza Virus Type 3 Not Detected (NOT DETECT); Parainfluenza Virus Type 4 Not Detected (NOT DETECT); Respiratory Syncytial Virus A Not Detected (NOT DETECT); Respiratory Syncytial Virus B Not Detected (NOT DETECT); SARS-COV-2 Not Detected (NOT DETECT)
[2023-09-20 14:45] LABS: Thyroid Stimulating Hormone 1.53 uIU/mL (0.27-4.20)
[2023-09-20 14:46] LABS: Estmated Average Glucose 169; Hemoglobin A1C 7.5 % (4.0-6.0)
[2023-09-20] MEDS: methylPREDNISolone sod succ 125 mg/2 mL INJ IVP (14:46)
[2023-09-20] MEDS: pantoprazole 40 mg SDV IVP (14:47)
[2023-09-20] MEDS: sodium chloride 0.9% 500 ML 999 ML IV (15:12)
--- NOTE | 2023-09-20 16:09 | ECG_ITS ---
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 Measurements Intervals [place] Rate: 99 P: 48 NJ: 188 QRS: 82 QRSD: 99 T: 68 QT: 375 QTc: 482 Interpretive Statements SINUS RHYTHM POSSIBLE LEFT ATRIAL ENLARGEMENT [-0.1mV P-WAVE IN V1/V2] POSSIBLE ANTERIOR MYOCARDIAL INFARCTION , OF INDETERMINATE AGE [30 ms Q WAVE IN V3/V4, OR R < 0.2 mV IN V4] Compared to ECG 09/20/2023 11:51:06 Myocardial infarct finding now present Electronically Signed On 09-20-2023 20:22:06 CDT by Eliezer Mills M.D. [email or web address] [email or web address]/[id number]
[2023-09-20 16:52] LABS: Glucose Point of Care 285 mg/dL (70-110)
[2023-09-20] MEDS: insulin lispro 100 unit/1 mL SUBCUT ×2 (17:35→21:08)
[2023-09-20] MEDS: enoxaparin 40 mg/0.4 mL Syringe SUBCUT (17:35)
[2023-09-20 17:40] LABS: Troponin 5 6HR 14.75 ng/L (0-10)
[2023-09-20 17:42] LABS: Troponin 5 6HR Delta -2.25 ng/L (0-12)
[2023-09-20] MEDS: budesonide 0.5 mg/2 mL Neb INHALATION (19:49)
[2023-09-20 20:55] LABS: Glucose Point of Care 338 mg/dL (70-110)
[2023-09-20] MEDS: levETIRAcetam 500 mg Tablet 1000 MG PO (21:07)
[2023-09-20] MEDS: gabapentin 300 mg Capsule 600 MG PO (21:07)
[2023-09-20] MEDS: TRAMadol 50 mg Tablet PO (21:08)
[2023-09-21] VITALS (13 sets, daily range): BP systolic 100–116; BP diastolic 60–69; PULSE 80–98; RESP 16–19; TEMP 36.3–36.6; O2SAT 96–98
[2023-09-21 03:04] LABS: Basophils % 0.3 %; Hematocrit 40.8 % (36-47); Lymphocytes # 0.7 10^3/uL (0.8-4.8); Lymphocytes % 7.6 %; Mean Corpuscular HGB Conc 30.4 g/dL (30-55); Mean Corpuscular Volume 88.9 fl (85-98); Mean Platelet Volume 12.9 fL (7.4-10.4); Monocytes # 0.5 10^3/uL (0.2-0.9); Monocytes % 4.8 %; Neutrophils # 8.43 10^3/uL (1.8-7.7); Neutrophils % 86.5 %; Nucleated Red Blood Cells % 0 %; Platelet Count 303 10^3/cmm (157-399); Red Blood Count 4.59 10^6/uL (3.85-5.65); Red Cell Distribution Width 16.2 % (12.1-15.1); White Blood Count 9.75 10^3/uL (3.29-11.43)
[2023-09-21 03:22] LABS: Blood Urea Nitrogen 14 mg/dL (8-23); Calcium 8.1 mg/dL (8.5-10.5); Carbon Dioxide 22 mmol/L (22-29); Chloride 104 mmol/L (98-107); Creatinine Clr Calc Pharmacy 89.9628; Glomerular Filtration Rate 70.9 mL/min (90-130); Glucose 261 mg/dL (65-115); Osmolality Calculated 298 mOsm/kg (285-295); Sodium 139 mmol/L (136-145)
[2023-09-21 03:23] LABS: Anion Gap 17.3 (5-19); Potassium 4.3 mmol/L (3.5-5.1)
[2023-09-21 03:32] LABS: NT Pro B Type Natriuretic Pept 1791 pg/mL (0-125)
[2023-09-21] MEDS: acetaminophen 325 mg Tablet 650 MG PO (04:00)
[2023-09-21 06:32] LABS: Glucose Point of Care 221 mg/dL (70-110)
[2023-09-21] MEDS: gabapentin 300 mg Capsule 600 MG PO ×2 (06:33→19:26)
[2023-09-21] MEDS: roflumilast 500 mcg Tablet PO (06:33)
[2023-09-21] MEDS: aspirin 81 mg EC Tablet PO (06:34)
[2023-09-21] MEDS: venlafaxine ER (24HR) 75 mg Capsule PO (06:34)
[2023-09-21] MEDS: bumetanide 1 mg Tablet 0.5 MG PO (06:34)
[2023-09-21] MEDS: TRAMadol 50 mg Tablet PO ×2 (06:37→19:26)
[2023-09-21] MEDS: ipratropium-albuterol 3 mL Neb INHALATION ×4 (08:08→23:24)
[2023-09-21] MEDS: budesonide 0.5 mg/2 mL Neb INHALATION ×2 (08:08→20:38)
[2023-09-21] MEDS: insulin lispro 100 unit/1 mL SUBCUT ×4 (08:25→21:47)
[2023-09-21] MEDS: atorvastatin 40 mg Tablet 80 MG PO (08:25)
[2023-09-21] MEDS: methylPREDNISolone sod succ 40 mg/mL INJ IVP ×3 (08:25→23:27)
[2023-09-21] MEDS: levETIRAcetam 500 mg Tablet PO (08:25)
--- NOTE | 2023-09-21 09:39 | PC.CHAP ---
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 [] Patient/Family/Request visit [] Outpatient visit [] Follow-up visit [] Physician referral [] Code/Alert [] Routine visit [] Staff referral [] Actively dying [] Patient sleeping [] Family support [] [] Out of room [] Palliative care [] [x] Receiving care in room [] Pre-surgical visit [] Trauma [] Long length of stay [] ICU visit [] Other: Relational/Emotional Strength [] Patient feels connected with others/family/visitors/staff [] Distress [] Loneliness/isolation [] Abandonment Spirituality of Patient [] Person of Irma [] Attends Gnosticist of their [place]ma [] Believes in Prayer [] Reads Bible or Mormon materials [] There are Spiritual issues to be addressed Tree Specialist Interventions [] Prayer [] Active listening [] Non-anxious presence [] Spiritual/emotional support [] Crisis/trauma care [] Spiritual counseling [] Bereavement support [] Provided bereavement packet [] Provided Bible/devotional materials [] Provided toy/stuffed animal, coloring book to patient or family member [] Provided Communion [] Anointing/Roland [] Salvation [] Completed spiritual assessment [] Other: Impact on Illness or Injury [] Angry [] Fearful [] Anxious [] Often cries [] Exhaustion [] Unable to work [] Unable to attend baptist [] Unable to walk/stand [] Unable to read [] Unable to drive [] Unable to eat/drink [] Unable to sleep [] Unable to be with family [] Patient intubated [] Other: Summary Time spent with patient
--- NOTE | 2023-09-21 09:43 | PC.SOCIAL ---
IMM Update pg 2 of IMM updated and reviewed w/ patient. Copy provided and copy dated, initialed and placed in chart.
[2023-09-21 10:55] LABS: Glucose Point of Care 285 mg/dL (70-110)
[2023-09-21] MEDS: cefTRIAXone 1,000 mg SDV 1000 MG IVP (12:43)
[2023-09-21] MEDS: azithromycin 500 MG in sodium chloride 0.9% 250 ML 250 MG IV (12:46)
[2023-09-21] MEDS: water for injection-sterile 10 ML 240 ML (12:47)
[2023-09-21] MEDS: benzonatate 100 mg Capsule PO (13:07)
--- NOTE | 2023-09-21 13:32 | P.PN_ITS ---
Subjective 2 Subjective: patient was seen this morning, she continues to complains of a cough, no fever, no chills, no nuasea, no vomiting, Vitals/I&O/Wt Last Vital Signs Temp 97.7 F 09/21/23 11:55 Pulse 83 09/21/23 11:55 Resp 18 09/21/23 11:55 BP 116/68 09/21/23 11:55 Pulse Ox 98 09/21/23 11:55 O2 Del Method Nasal Cannula 09/21/23 12:25 O2 Flow Rate 2 09/21/23 12:25 09/20/23 09/21/23 09/21/23 22:59 06:59 14:59 Intake Total 620 / 1870 490 / 490 Balance 620 / 1870 490 / 490 Weight last 48 hrs Weight 87.146 kg Weight 87.09 kg Weight 86.183 kg Physical Exam 2 Const: COMMON NORMALS: no acute distress and patient oriented x3 Resp: COMMON NORMALS: normal respiratory effort, No retractions and No use of accessory muscles AUSCULTATION: crackles and wheezes Cardio: COMMON NORMALS: regular rate, regular rhythm, S1 normal heart sound present and S2 normal heart sound present RATE: regular rate RHYTHM: r egular rhythm HEART SOUNDS: S1 normal heart sound present and S2 normal heart sound present GI: COMMON NORMALS: Normal to inspection, nondistended, normoactive bowel sounds present and non-tender Extremity: COMMON NORMALS: no pedal edema Neuro: COMMON NORMALS: patient oriented x3 Psych: COMMON NORMALS: mental status grossly normal Data 09/21/23 02:14 09/21/23 02:14 Micro: Microbiology 09/20/23 15:15 Gram Stain - Final Sputum - Expectorated Sputum Sputum Culture - Preliminary 09/20/23 11:35 Urine Culture - Preliminary Urine,Clean Catch 09/20/23 13:50 Blood Culture - Preliminary Blood SPECIMEN COLLECTED 09/20/23 13:48 Blood Culture - Preliminary Blood SPECIMEN COLLECTED A&P Assessment and plan (1) Acute hypoxic respiratory failure: (2) Pneumonia: (3) COPD exacerbation: (4) Benign essential hypertension with target blood pressure below 140/90: (5) Acute diastolic heart failure: (6) Tricuspid valve regurgitation, secondary: (7) PAD (peripheral artery disease): (8) Nicotine dependence, cigarettes, with unspecified nicotine-induced disorders: (9) NSTEMI (non-ST elevated myocardial infarction): Plan Acute hypoxic respiratory failure Secondary pneumonia Secondary COPD exacerbation ? Plan ? Received Rocephin in the emergency room, no anaphylactic reaction no allergic reaction, will continue ? Azithromycin ? Solu-Medrol ? DuoNeb exacerbate asthma ? Monitor respiratory status closely ? Respiratory viral panel ? Type 2 diabetes mellitus, monitor for signs scale ? Full code ? Lovenox for DVT prophylaxis Attestations 2 Medical Necessity Statement*: pateint requires hospitalization for acute hypoxic respiratory failure, Diagnoses Acute hypoxic respiratory failure J96.01 Pneumonia J18.9 COPD exacerbation J44.1 Benign essential hypertension with target blood pressure below 140/90 I10 Acute diastolic heart failure I50.31 Tricuspid valve regurgitation, secondary I07.1 PAD (peripheral artery disease) I73.9 Nicotine dependence, cigarettes, with unspecified nicotine-induced disorders F17.219 NSTEMI (non-ST elevated myocardial infarction) I21.4
[2023-09-21] MEDS: insulin glargine 100 units/1 mL 10 UNIT SUBCUT (14:38)
[2023-09-21] MEDS: pantoprazole 40 mg SDV IVP (14:38)
[2023-09-21 16:55] LABS: Glucose Point of Care 287 mg/dL (70-110)
[2023-09-21] MEDS: enoxaparin 40 mg/0.4 mL Syringe SUBCUT (17:05)
[2023-09-21 20:33] LABS: Glucose Point of Care 321 mg/dL (70-110)
[2023-09-21] MEDS: levETIRAcetam 500 mg Tablet 1000 MG PO (21:47)
[2023-09-22] VITALS (13 sets, daily range): BP systolic 99–110; BP diastolic 57–67; PULSE 73–94; RESP 16–18; TEMP 36.3–36.8; O2SAT 95–99
[2023-09-22 05:54] LABS: Basophils # 0.1 10^3/uL (0.0-0.1); Basophils % 0.5 %; Hematocrit 43.3 % (36-47); Lymphocytes # 0.8 10^3/uL (0.8-4.8); Lymphocytes % 7.7 %; Mean Corpuscular HGB Conc 29.3 g/dL (30-55); Mean Corpuscular Hemoglobin 26.7 pg (27-33); Mean Platelet Volume 10.9 fL (7.4-10.4); Monocytes # 0.6 10^3/uL (0.2-0.9); Monocytes % 5.8 %; Neutrophils # 9.08 10^3/uL (1.8-7.7); Neutrophils % 84.1 %; Nucleated Red Blood Cells % 0.2 %; Platelet Count 236 10^3/cmm (157-399); Red Blood Count 4.76 10^6/uL (3.85-5.65); Red Cell Distribution Width 16.4 % (12.1-15.1); White Blood Count 10.79 10^3/uL (3.29-11.43)
[2023-09-22 06:17] LABS: Anion Gap 15.4 (5-19); Blood Urea Nitrogen 21 mg/dL (8-23); Calcium 8.8 mg/dL (8.5-10.5); Carbon Dioxide 26 mmol/L (22-29); Chloride 105 mmol/L (98-107); Creatinine Clr Calc Pharmacy 90.5712; Glomerular Filtration Rate 70.9 mL/min (90-130); Glucose 276 mg/dL (65-115); Osmolality Calculated 307 mOsm/kg (285-295); Potassium 4.4 mmol/L (3.5-5.1); Sodium 142 mmol/L (136-145)
[2023-09-22 06:30] LABS: Glucose Point of Care 222 mg/dL (70-110)
[2023-09-22] MEDS: gabapentin 300 mg Capsule 600 MG PO ×2 (06:31→20:56)
[2023-09-22] MEDS: roflumilast 500 mcg Tablet PO (06:31)
[2023-09-22] MEDS: bumetanide 1 mg Tablet 0.5 MG PO (06:32)
[2023-09-22] MEDS: venlafaxine ER (24HR) 75 mg Capsule PO (06:32)
[2023-09-22] MEDS: aspirin 81 mg EC Tablet PO (06:32)
[2023-09-22] MEDS: TRAMadol 50 mg Tablet PO ×2 (06:36→20:56)
[2023-09-22] MEDS: insulin lispro 100 unit/1 mL SUBCUT ×4 (07:44→20:57)
[2023-09-22] MEDS: methylPREDNISolone sod succ 40 mg/mL INJ IVP ×3 (07:48→23:37)
[2023-09-22] MEDS: ipratropium-albuterol 3 mL Neb INHALATION ×4 (09:16→20:37)
[2023-09-22] MEDS: budesonide 0.5 mg/2 mL Neb INHALATION ×2 (09:16→20:37)
[2023-09-22] MEDS: levETIRAcetam 500 mg Tablet PO (09:41)
[2023-09-22] MEDS: atorvastatin 40 mg Tablet 80 MG PO (09:41)
[2023-09-22] MEDS: insulin glargine 100 units/1 mL 10 UNIT SUBCUT (09:42)
[2023-09-22 11:43] LABS: Glucose Point of Care 304 mg/dL (70-110)
--- NOTE | 2023-09-22 12:54 | P.PN_ITS ---
Subjective 2 Subjective: Patient was seen this morning, she feels better she tells me but continues to have shortness of breath with exertion such as getting up and using the bathroom Vitals/I&O/Wt Last Vital Signs Temp 97.8 F 09/22/23 12:00 Pulse 94 09/22/23 12:00 Resp 18 09/22/23 11:57 BP 107/67 09/22/23 12:00 Pulse Ox 98 09/22/23 12:00 O2 Del Method Nasal Cannula 09/22/23 12:00 O2 Flow Rate 2 09/22/23 11:57 09/21/23 09/22/23 09/22/23 22:59 06:59 14:59 Intake Total 840 / 2180 Output Total 150 / 150 Balance 840 / 2180 -150 / 2030 Weight last 48 hrs Weight 87.679 kg Weight 87.146 kg Weight 87.09 kg Physical Exam 2 Const: COMMON NORMALS: no acute distress and patient oriented x3 Resp: COMMON NORMALS: normal respiratory effort, No retractions and No use of accessory muscles AUSCULTATION: crackles and wheezes Cardio: COMMON NORMALS: regular rate, regular rhythm, S1 normal heart sound present and S2 normal heart sound present RATE: regular rate RHYTHM: r egular rhythm HEART SOUNDS: S1 normal heart sound present and S2 normal heart sound present GI: COMMON NORMALS: Normal to inspection, nondistended, normoactive bowel sounds present and non-tender Extremity: COMMON NORMALS: no pedal edema Neuro: COMMON NORMALS: patient oriented x3 Psych: COMMON NORMALS: mental status grossly normal Data 09/22/23 04:44 09/22/23 04:44 Micro: Microbiology 09/20/23 15:15 Gram Stain - Final Sputum - Expectorated Sputum Sputum Culture - Final 09/20/23 11:35 Urine Culture - Final Urine,Clean Catch 09/20/23 13:50 Blood Culture - Preliminary Blood NEGATIVE TO DATE 09/20/23 13:48 Blood Culture - Preliminary Blood NEGATIVE TO DATE A&P Assessment and plan (1) Acute hypoxic respiratory failure: (2) Pneumonia: (3) COPD exacerbation: (4) Benign essential hypertension with target blood pressure below 140/90: (5) Acute diastolic heart failure: (6) Tricuspid valve regurgitation, secondary: (7) PAD (peripheral artery disease): (8) Nicotine dependence, cigarettes, with unspecified nicotine-induced disorders: (9) NSTEMI (non-ST elevated myocardial infarction): Plan Acute hypoxic respiratory failure Secondary pneumonia Secondary COPD exacerbation ? Plan ? Received Rocephin in the emergency room, no anaphylactic reaction no allergic reaction, will continue ? Azithromycin ? Solu-Medrol ? DuoNeb exacerbate asthma ? Monitor respiratory status closely ? Respiratory viral panel within normal limits ? Blood cultures no growth so far ? Sputum culture no growth so far ? Type 2 diabetes mellitus, monitor for signs scale ? Full code ? Lovenox for DVT prophylaxis Continue antibiotics, steroids, monitor respiratory status closely Attestations 2 Medical Necessity Statement*: Patient requires hospitalization for acute hypoxic respiratory failure secondary to pneumonia, COPD Diagnoses Acute hypoxic respiratory failure J96.01 Pneumonia J18.9 COPD exacerbation J44.1 Benign essential hypertension with target blood pressure below 140/90 I10 Acute diastolic heart failure I50.31 Tricuspid valve regurgitation, secondary I07.1 PAD (peripheral artery disease) I73.9 Nicotine dependence, cigarettes, with unspecified nicotine-induced disorders F17.219 NSTEMI (non-ST elevated myocardial infarction) I21.4
[2023-09-22] MEDS: cefTRIAXone 1,000 mg SDV 1000 MG IVP (13:54)
[2023-09-22] MEDS: azithromycin 500 MG in sodium chloride 0.9% 250 ML 250 MG IV (14:07)
[2023-09-22] MEDS: pantoprazole 40 mg SDV IVP (14:32)
[2023-09-22 16:45] LABS: Glucose Point of Care 247 mg/dL (70-110)
[2023-09-22] MEDS: enoxaparin 40 mg/0.4 mL Syringe SUBCUT (17:34)
[2023-09-22 20:25] LABS: Glucose Point of Care 235 mg/dL (70-110)
[2023-09-22] MEDS: levETIRAcetam 500 mg Tablet 1000 MG PO (20:56)
[2023-09-23] VITALS (9 sets, daily range): BP systolic 109–119; BP diastolic 71–74; PULSE 87–96; RESP 6–18; TEMP 36.5–36.7; O2SAT 93–99
[2023-09-23] MEDS: ipratropium-albuterol 3 mL Neb INHALATION ×4 (00:52→11:17)
[2023-09-23 05:43] LABS: Basophils # 0.1 10^3/uL (0.0-0.1); Basophils % 0.7 %; Hematocrit 43.6 % (36-47); Lymphocytes # 1.2 10^3/uL (0.8-4.8); Lymphocytes % 9.6 %; Mean Corpuscular HGB Conc 28.9 g/dL (30-55); Mean Corpuscular Hemoglobin 26.3 pg (27-33); Mean Corpuscular Volume 90.8 fl (85-98); Mean Platelet Volume 10.5 fL (7.4-10.4); Monocytes # 0.7 10^3/uL (0.2-0.9); Monocytes % 5.8 %; Neutrophils # 9.53 10^3/uL (1.8-7.7); Neutrophils % 78.9 %; Nucleated Red Blood Cells % 0 %; Platelet Count 253 10^3/cmm (157-399); Red Cell Distribution Width 16.5 % (12.1-15.1); White Blood Count 12.08 10^3/uL (3.29-11.43)
[2023-09-23 05:54] LABS: Anion Gap 15.3 (5-19); Blood Urea Nitrogen 25 mg/dL (8-23); Calcium 8.8 mg/dL (8.5-10.5); Carbon Dioxide 26 mmol/L (22-29); Chloride 102 mmol/L (98-107); Creatinine Clr Calc Pharmacy 92.4461; Glomerular Filtration Rate 70.9 mL/min (90-130); Glucose 247 mg/dL (65-115); Osmolality Calculated 301 mOsm/kg (285-295); Potassium 4.3 mmol/L (3.5-5.1); Sodium 139 mmol/L (136-145)
[2023-09-23] MEDS: gabapentin 300 mg Capsule 600 MG PO (06:03)
[2023-09-23] MEDS: venlafaxine ER (24HR) 75 mg Capsule PO (06:03)
[2023-09-23] MEDS: aspirin 81 mg EC Tablet PO (06:03)
[2023-09-23] MEDS: bumetanide 1 mg Tablet 0.5 MG PO (06:03)
[2023-09-23] MEDS: roflumilast 500 mcg Tablet PO (06:03)
[2023-09-23 06:23] LABS: Glucose Point of Care 219 mg/dL (70-110)
[2023-09-23] MEDS: budesonide 0.5 mg/2 mL Neb INHALATION (08:23)
[2023-09-23] MEDS: atorvastatin 40 mg Tablet 80 MG PO (08:50)
[2023-09-23] MEDS: levETIRAcetam 500 mg Tablet PO (08:51)
[2023-09-23] MEDS: insulin lispro 100 unit/1 mL SUBCUT ×2 (08:51→11:52)
[2023-09-23] MEDS: methylPREDNISolone sod succ 40 mg/mL INJ IVP (08:51)
[2023-09-23] MEDS: insulin glargine 100 units/1 mL 10 UNIT SUBCUT (08:51)
[2023-09-23 10:53] LABS: Glucose Point of Care 226 mg/dL (70-110)
--- NOTE | 2023-09-23 11:15 | PM.DCS ---
Discharge Providers Date of Admission: 09/20/23 12:53 Date of Discharge: September 23, 2023 Attending Provider at Admission: Matthias Booker MD Attending Provider at Discharge: Matthias Booker MD Primary Care Provider: Tashi Acosta MD Diagnoses at Discharge Discharge Diagnosis (1) Acute hypoxic respiratory failure: Status: Acute (2) Pneumonia: Status: Acute (3) COPD exacerbation: Status: Acute (4) Benign essential hypertension with target blood pressure below 140/90: Status: Acute (5) Acute diastolic heart failure: Status: Acute (6) Tricuspid valve regurgitation, secondary: Status: Acute (7) PAD (peripheral artery disease): Status: Acute (8) Nicotine dependence, cigarettes, with unspecified nicotine-induced disorders: Status: Acute (9) NSTEMI (non-ST elevated myocardial infarction): Status: Acute Reason for Visit Reason for Visit: sinus infection, SOB (nurse with her), ear pain Hospital Course Hospital Course Yaquelin Loera is a 68 year old female with a past medical history of COPD, type 2 diabetes mellitus, obesity, who presents [facility] for cough, shortness of breath, subjective fevers, fatigue, malaise. Patient tells me that she lives alone applied, with 36 other people, there is been sick people at their residence, she has been experiencing shortness of breath, cough, fatigue, malaise, she reports smoking, few cigarettes a day, Patient was admitted to [facility] for acute hypoxic respiratory failure secondary pneumonia, COPD, received steroid, antibiotics, during hospitalization overall clinically improved, discharged on a prednisone burst, doxycycline, Tessalon Perls for cough, with close follow-up with primary care provider as outpatient. For complaints of hip pain, she was discharged on a short supply of tramadol to be used sparingly for pain, do not drive or operate machinery or drink or take with any other controlled substances. She voiced understanding, all questions answered. Physical Exam Const: COMMON NORMALS: no acute distress and patient oriented x3 Resp: COMMON NORMALS: normal respiratory effort, No retractions, No use of accessory muscles and clear to auscultation bilaterally AUSCULTATION: clear to auscultation bilaterally Cardio: COMMON NORMALS: regular rate, regular rhythm, S1 normal heart sound present and S2 normal heart sound present RATE: regular rate RHYTHM: regular rhythm HEART SOUNDS: S1 normal heart sound present and S2 normal heart sound present GI: COMMON NORMALS: Normal to inspection, nondistended, normoactive bowel sounds present and non-tender Extremity: COMMON NORMALS: no pedal edema Neuro: COMMON NORMALS: patient oriented x3 Psych: COMMON NORMALS: mental status grossly normal Discharge Data Studies Completed and Pending Completed Studies During Hospitalization Category Date Time Status XR chest 1V portable [id number] Stat Exams 09/20/23 09:51 Completed Pending at discharge Category Date Time Status Blood Culture Stat Lab 09/20/23 13:50 Results Radiology Impressions Chest X-Ray 09/20/23 09:51 IMPRESSION: 1. Cardiomegaly with mild vascular congestion. 2. Suspect infiltrate/pneumonia likely involving the lingula. At minimum would recommend short-term follow-up after therapy to document clearing. CT thorax with contrast would be of benefit to exclude a central mass. Laboratory Results WBC 12.08 10^3/uL (3.29-11.43) H 09/23/23 04:46 RBC 4.80 10^6/uL (3.85-5.65) 09/23/23 04:46 Hgb 12.60 g/dL (11.27-16.99) 09/23/23 04:46 Hct 43.6 % (36-47) 09/23/23 04:46 MCV 90.8 fl (85-98) 09/23/23 04:46 MCH 26.3 pg (27-33) L 09/23/23 04:46 MCHC 28.9 g/dL (30-55) L 09/23/23 04:46 RDW 16.5 % (12.1-15.1) H 09/23/23 04:46 Plt Count 253 10^3/cmm (157-399) 09/23/23 04:46 MPV 10.5 fL (7.4-10.4) H 09/23/23 04:46 Neut % (Auto) 78.9 % 09/23/23 04:46 Lymph % (Auto) 9.6 % 09/23/23 04:46 [place] % (Auto) 5.8 % 09/23/23 04:46 Eos % (Auto) 0.0 % 09/23/23 04:46 Baso % (Auto) 0.7 % 09/23/23 04:46 Neut # (Auto) 9.53 10^3/uL (1.8-7.7) H 09/23/23 04:46 Lymph # (Auto) 1.2 10^3/uL (0.8-4.8) 09/23/23 04:46 [place] # (Auto) 0.7 10^3/uL (0.2-0.9) 09/23/23 04:46 Eos # (Auto) 0.0 10^3/uL (0.0-0.8) 09/23/23 04:46 Baso # (Auto) 0.1 10^3/uL (0.0-0.1) 09/23/23 04:46 Nucleated RBC % (auto) 0 % 09/23/23 04:46 Nucleated RBCs # 0.0 /100WBC 09/23/23 04:46 Specimen Type Arterial 09/20/23 10:18 Sample Site Brachial, left 09/20/23 10:18 ABG pH 7.34 (7.35-7.45) L 09/20/23 10:18 ABG pCO2 41.6 mmHg (35-45) 09/20/23 10:18 ABG pO2 66.9 mmHg (80.0-100.0) L 09/20/23 10:18 ABG HCO3 22.4 mmol/L (22-26) 09/20/23 10:18 ABG O2 Saturation 94.6 09/20/23 10:18 ABG Base Excess -3.3 mmol/L (-2.0-2.0) L 09/20/23 10:18 Miguel Test Pos 09/20/23 10:18 A-a O2 Gradient 4.0 mmHg (5-10) L 09/20/23 10:18 Hematocrit 40.7 % (37-47) 09/20/23 10:18 Hgb O2 Saturation 92.3 % (95-100) L 09/20/23 10:18 Carboxyhemoglobin 2.2 %THgb (0.4-20.1) 09/20/23 10:18 Methemoglobin 0.4 % (0.4-1.5) 09/20/23 10:18 Total Hemoglobin 13.3 g/dL (12-16) 09/20/23 10:18 Sodium 140.0 mmol/L (131-143) 09/20/23 10:18 Potassium 3.8 mmol/L (3.5-5.0) 09/20/23 10:18 Glucose 148.0 mg/dL (70-115) H 09/20/23 10:18 Ionized Calcium 1.2 mmol/L (1.1-1.4) 09/20/23 10:18 O2 Delivery Device Nc 09/20/23 10:18 O2 Liters/Min 2.0 % 09/20/23 10:18 Cell Liner ID Broma 09/20/23 10:18 Sodium 139 mmol/L (136-145) 09/23/23 04:46 Potassium 4.3 mmol/L (3.5-5.1) 09/23/23 04:46 Chloride 102 mmol/L (98-107) 09/23/23 04:46 Carbon Dioxide 26 mmol/L (22-29) 09/23/23 04:46 Anion Gap 15.3 (5-19) 09/23/23 04:46 BUN 25 mg/dL (8-23) H 09/23/23 04:46 Creatinine 0.8 mg/dL (0.5-0.9) 09/23/23 04:46 GFR Calculation 70.9 mL/min (90-130) L 09/23/23 04:46 Glucose 247 mg/dL (65-115) H 09/23/23 04:46 POC Glucose 226 mg/dL (70-110) H 09/23/23 10:45 Estimat Average Glucose 169 09/20/23 10:47 Hemoglobin A1c 7.5 % (4.0-6.0) H 09/20/23 10:47 Calculated Osmolality 301 mOsm/kg (285-295) H 09/23/23 04:46 Lactic Acid 2.3 mmol/L (0.5-2.2) H 09/20/23 10:47 Lactic Acid (Sepsis) 1.8 mmol/L (0.5-2.2) 09/20/23 13:48 Calcium 8.8 mg/dL (8.5-10.5) 09/23/23 04:46 Total Bilirubin 0.3 mg/dL (0.15-1.2) 09/20/23 10:47 AST 18 U/L (0-32) 09/20/23 10:47 ALT 15 U/L (0-33) 09/20/23 10:47 Alkaline Phosphatase 193 U/L (35-105) H 09/20/23 10:47 Creatine Kinase 38 U/L (26-192) 09/20/23 10:47 Troponin T Baseline 17 ng/L (0-10) H 09/20/23 10:47 Troponin T 120 Minute 16.82 ng/L (0-10) H 09/20/23 12:46 Delta Troponin T -0.18 ABS# (0-10) L 09/20/23 12:46 Troponin T Hi Sens 6Hr 14.75 ng/L (0-10) H 09/20/23 16:59 Troponin T Hi Sens 6Hr Delta -2.25 ng/L (0-12) L 09/20/23 16:59 NT-Pro-B Natriuret Pep 1791 pg/mL (0-125) H 09/21/23 02:14 Total Protein 7.9 g/dL (6.6-8.7) 09/20/23 10:47 Albumin 3.1 g/dL (3.5-5.2) L 09/20/23 10:47 Globulin 4.8 g/dL (1.3-4.6) H 09/20/23 10:47 Procalcitonin 0.65 ng/mL (0-0.5) H 09/20/23 12:46 TSH 1.53 uIU/mL (0.27-4.20) 09/20/23 10:47 Urine Color Yellow (Yellow) 09/20/23 11:35 Urine Appearance Clear (CLEAR) 09/20/23 11:35 Urine pH 5 (5-7) 09/20/23 11:35 Ur Specific Crosby 1.020 (1.005-1.030) 09/20/23 11:35 Urine Protein 1+ (Negative) H 09/20/23 11:35 Urine Glucose (UA) 4+ (Normal) H 09/20/23 11:35 Urine Ketones 1+ (Negative) H 09/20/23 11:35 Urine Blood 2+ (Negative) H 09/20/23 11:35 Urine Nitrate Negative (Negative) 09/20/23 11:35 Urine Bilirubin Neg (Negative) 09/20/23 11:35 Urine Urobilinogen Neg mg/dL (Negative) 09/20/23 11:35 Ur Leukocyte Esterase Negative (Negative) 09/20/23 11:35 Urine RBC 0-4 /hpf (0-2) H 09/20/23 11:35 Urine WBC 5-10 /hpf (0-5) H 09/20/23 11:35 Ur Squamous Epith Cells 0-4 /hpf (0-5) H 09/20/23 11:35 Amorphous Sediment 1+ /hpf 09/20/23 11:35 Urine Bacteria 3+ /hpf (NONE) H 09/20/23 11:35 Coarse Granular Casts 5-10 /lpf H 09/20/23 11:35 Urine Mucus Trace /hpf 09/20/23 11:35 Adenovirus (PCR) Not detected (NOT DETECT) 09/20/23 12:43 C. pneumoniae DNA (PCR) Not detected (NOT DETECT) 09/20/23 12:43 Coronavirus 229E (PCR) Not detected (NOT DETECT) 09/20/23 12:43 Human Metapneumovir PCR Not detected (NOT DETECT) 09/20/23 12:43 Influenza A (H1) PCR Not detected (NOT DETECT) 09/20/23 12:43 Influ A (H1/09) PCR Not detected (NOT DETECT) 09/20/23 12:43 Influenza A (H3) PCR Not detected (NOT DETECT) 09/20/23 12:43 Influenza Type A (PCR) Not detected (NOT DETECT) 09/20/23 12:43 Influenza Type B (PCR) Not detected (NOT DETECT) 09/20/23 12:43 M. pneumoniae (PCR) Not detected (NOT DETECT) 09/20/23 12:43 Parainfluenza 1 (PCR) Not detected (NOT DETECT) 09/20/23 12:43 Parainfluenza 2 (PCR) Not detected (NOT DETECT) 09/20/23 12:43 Parainfluenza 3 (PCR) Not detected (NOT DETECT) 09/20/23 12:43 Parainfluenza 4 (PCR) Not detected (NOT DETECT) 09/20/23 12:43 RSV Type A (PCR) Not detected (NOT DETECT) 09/20/23 12:43 RSV Type B (PCR) Not detected (NOT DETECT) 09/20/23 12:43 Entero/Rhino (PCR) Not detected (NOT DETECT) 09/20/23 12:43 SARS-CoV-2 (PCR) Not detected (NOT DETECT) 09/20/23 12:43 Vitals Last Vital Signs Temp 98.0 F 09/23/23 08:00 Pulse 88 09/23/23 08:32 Resp 16 09/23/23 08:00 BP 109/73 09/23/23 08:00 Pulse Ox 93 09/23/23 08:00 O2 Del Method Nasal Cannula 09/23/23 08:00 O2 Flow Rate 2 09/23/23 08:00 Discharge Plan Discharge Patient Disposition: Home Condition: Stable Prescriptions: New benzonatate 100 mg Capsule 100 mg PO TID PRN (Reason: Cough) 7 Days Qty: 21 0RF doxycycline hyclate 100 mg tablet 100 mg PO BID 5 Days Qty: 10 0RF prednisone 20 mg tablet 20 mg PO DAILY 5 Days Qty: 5 0RF Continued rosuvastatin 40 mg tablet 40 mg PO DAILY@20 (DME) Diabetic Shoes See Rx Instructions .Route .MEDSUPPLY Qty: 1 0RF Rx Instructions: As directed albuterol sulfate 90 mcg/actuation HFA aerosol inhaler 1 puff INHALATION Q6H PRN (Reason: Shortness Of Breath) Qty: 8.5 3RF Cough Drops See Rx Instructions .ROUTE .COMPLEX Rx Instructions: may keep at bedside ondansetron 4 mg tablet,disintegrating 4 mg PO Q6H PRN (Reason: nausea and vomiting) Qty: 14 0RF mirabegron [Myrbetriq] 25 mg tablet extended release 24 hr 25 mg PO DAILY@0700 promethazine-DM 6.25-15 mg/5 mL Syrup 5 ml PO Q6H PRN (Reason: Cough) fluoride (sodium) [SF 5000 Plus] 1.1 % Cream See Rx Instructions .ROUTE .COMPLEX Rx Instructions: [place] on teeth twice daily with use of regular tooth paste do not eat or drink 30 mins after (use at 07:00 & 20:00) aspirin 81 mg tablet,delayed release (DR/EC) 81 mg PO DAILY@07 loperamide 2 mg Tablet 2 mg PO QID PRN (Reason: Diarrhea) pantoprazole 40 mg tablet,delayed release (DR/EC) 40 mg PO DAILY@07 Debrox 6.5 % Drops 10 drp otic (ear) Q30D Rx Instructions: ON THE OF EACH MONTH. roflumilast [Daliresp] 500 mcg tablet 500 mcg PO DAILY@0700 Trelegy Ellipta 100-62.5-25 mcg blister with device 1 inh inhalation DAILY@07 acetaminophen [Tylenol Extra Strength] 500 mg Tablet 500 mg PO Q6H PRN (Reason: Pain) magnesium hydroxide [Milk of Magnesia] 400 mg/5 mL Suspension 30 ml PO DAILY PRN (Reason: Constipation) Rx Instructions: IF NO BM FOR 3 DAYS gabapentin 300 mg capsule 600 mg PO BID@0700,2000 bisacodyl [Dulcolax (bisacodyl)] 5 mg Tablet,Delayed Release (Dr/Ec) 10 mg PO DAILY PRN (Reason: Constipation) melatonin 5 mg Tablet 5 mg PO BEDTIME@2000 venlafaxine 75 mg Capsule,Extended Release 24hr 75 mg PO DAILY@0700 Saline Nasal 0.65 % Aerosol,[place] See Rx Instructions .ROUTE .COMPLEX Rx Instructions: SQUEEZE INTO DRY NOSTRILS TWICE DAILY THEN FOLLOW WITH BACTROBAN. USE AT 0700 AND 1999 levetiracetam 500 mg tablet See Rx Instructions .ROUTE .COMPLEX Rx Instructions: TAKE 500 MG BY MOUTH IN THE MORNING AND 1,000 MG IN THE PM nystatin 100,000 unit/gram powder 1 applic topical BID PRN (Reason: Skin Irritation) Ozempic 1 mg/dose (4 mg/3 mL) pen injector 1 mg SUBCUT Q7D Rx Instructions: MONDAYS terbinafine HCl 1 % cream See Rx Instructions .ROUTE .COMPLEX Rx Instructions: APPLY TO THE AFFECTED AREA(S) WASH AND TOWEL DRY AFFECTED AREA TWICE PER DAY UNTIL HEALED. hydrocortisone 1 % Cream 1 applic TOPICAL TID PRN (Reason: Skin Irritation) triamcinolone acetonide 0.1 % ointment 1 applic TOPICAL BID fluticasone propionate 50 mcg/actuation spray,suspension 1 spray INTRANASAL QAM hydroxyzine pamoate 25 mg capsule 25 mg PO Q8H PRN (Reason: Anxiety) Acidophilus Probiotic Blend 175 mg Capsule 1 cap PO QPM Preparation H 0.25-14-74.9 % Ointment 1 applic OR TID PRN (Reason: PAIN OR ITCHING) ammonium lactate 12 % cream 1 applic topical BEDTIME tramadol 50 mg tablet 50 mg PO Q8H PRN (Reason: pain) 3 Days Qty: 9 0RF bumetanide 0.5 mg tablet 0.5 mg PO DAILY@07 ipratropium-albuterol 0.5 mg-3 mg(2.5 mg base)/3 mL Solution For Nebulization 3 ml INHALATION Q4H PRN (Reason: Shortness Of Breath) carboxymethylcellulose sodium [Refresh Tears] 0.5 % Drops 1 - 2 drp ophthalmic (eye) QID PRN (Reason: Dry Eye(S)) clotrimazole 1 % Cream See Rx Instructions .ROUTE .COMPLEX Rx Instructions: apply topically to scales in right foot (toes) at bedtime. cholecalciferol (vitamin D3) [Vitamin D3] 50 mcg (2,000 unit) Capsule 50 mcg PO DAILY@07 Jardiance 25 mg Tablet 25 mg PO DAILY@07 lidocaine 5 % Adhesive Patch,Medicated 1 patch TOPICAL DAILY PRN (Reason: Pain) Rx Instructions: leave on most painful area for up to 12 hrs then off for 12 hours PreserVision AREDS [id number] [id number]-[id number] capsule 1 cap PO BID@ insulin degludec [Tresiba FlexTouch U-100] 100 unit/mL (3 mL) Insulin Pen 10 unit SUBCUT BEDTIME Discharge Orders: Discharge Order (Routine); Ordered 09/23/23 Ordered By: Matthias Booker Referrals: Tashi Acosta MD [Primary Care Provider] - 4-7 days (Please call for an follow-up appointment within 4 to 7 days. Thank you. ) Discharge Diet: Cardiac Discharge Activity: Resume usual activity Patient Instructions: Opioid Safety Activity Restrictions/Additional Instructions: - Please use tramadol sparingly for pain, do not drive or operate machinery or drink while taking medication, do not use with any other controlled substances -Please take antibiotics and steroids as prescribed -Please monitor your blood sugars closely, if greater than 500 please go to emergency room or see primary care Discharge Attestations Time Spent in Discharge Care*: greater than 30 min Quality Metrics Clinical Quality Measures [ No reported AMI, CVA or VTE this stay] Coding Level of Care Code 96014 Total time (in minutes) for Discharge: 45 Diagnoses Acute hypoxic respiratory failure J96.01 Pneumonia J18.9 COPD exacerbation J44.1 Benign essential hypertension with target blood pressure below 140/90 I10 Acute diastolic heart failure I50.31 Tricuspid valve regurgitation, secondary I07.1 PAD (peripheral artery disease) I73.9 Nicotine dependence, cigarettes, with unspecified nicotine-induced disorders F17.219 NSTEMI (non-ST elevated myocardial infarction) I21.4
[2023-09-23] MEDS: cefTRIAXone 1,000 mg SDV 1000 MG IVP (11:52)
[2023-09-23] MEDS: water for injection-sterile 10 ML 100 ML (11:53)
== END 2023-09-23 14:00 | disposition home or self-care (01) | DRG 193 ==
LOC: ER 12:23 → MEDSURG 12:53
PROVIDERS: Admitting Provider Family Medicine; Emergency Provider Family Medicine; PCP Family Medicine; Visit Provider Family Medicine
DX: J18.9 Pneumonia, unspecified organism (principal); I50.31 Acute diastolic (congestive) heart failure; J96.01 Acute respiratory failure with hypoxia; I42.8 Other cardiomyopathies; E66.2 Morbid (severe) obesity with alveolar hypoventilation; Z68.41 Body mass index [BMI] 40.0-44.9, adult; J44.0 Chronic obstructive pulmonary disease with (acute) lower respiratory infection; J44.1 Chronic obstructive pulmonary disease with (acute) exacerbation; F17.210 Nicotine dependence, cigarettes, uncomplicated; I11.0 Hypertensive heart disease with heart failure; F32.A Depression, unspecified; G40.909 Epilepsy, unspecified, not intractable, without status epilepticus; E78.5 Hyperlipidemia, unspecified; E11.51 Type 2 diabetes mellitus with diabetic peripheral angiopathy without gangrene; Z79.4 Long term (current) use of insulin; I27.20 Pulmonary hypertension, unspecified; I07.1 Rheumatic tricuspid insufficiency
CPT/HCPCS: 36415; 36416; 36600; 71045; 80048; 80051; 80053; 81001; 82330; 82550; 82805; 82962; 83036; 83605; 83880; 84145; 84443; 84484; 85025; 87040; 87070; 87086; 87205; 87486; 87581; 87633; 93005; 94640; 94664; 96365; 96367; 96372; 96375; 99285; C9113; J0456; J0696; J1100; J1650; J1815; J2919; J7030; J7040; J7050; J7626

== ENCOUNTER 2023-12-14 19:32 | Emergency (ER) | payer MEDICARE, MEDICAID, SELFPAY ==
[2023-12-14] VITALS (13 sets, daily range): BP systolic 104–136; BP diastolic 60–81; PULSE 80–93; RESP 12–23; TEMP 36.6; O2SAT 91–99; BMI 39.6
--- NOTE | 2023-12-14 19:50 | ECG_ITS ---
[facility] Test Date: 2023-12-14 Pat Name: Yaquelin Loera Department: Room: Gender: Female Manager Physical: : 1955 Requested By: Magi Rincon Order Number: [id number] José MD: Jay Adler M.D. Measurements Intervals [place] Rate: 84 P: 54 IA: 183 QRS: 76 QRSD: 102 T: 55 QT: 389 QTc: 460 Interpretive Statements SINUS RHYTHM POSSIBLE ANTERIOR MYOCARDIAL INFARCTION , OF INDETERMINATE AGE [30 ms Q WAVE IN V3/V4, OR R < 0.2 mV IN V4] Compared to ECG 09/20/2023 17:01:59 No significant changes Electronically Signed On 12-14-2023 20:18:01 CDT by Jay Adler M.D. [id number]
--- NOTE | 2023-12-14 19:50 | XRR_ITS ---
PROCEDURE INFORMATION: Exam: XR Chest Exam date and time: 12/14/2023 8:01 PM Age: 68 years old Clinical indication: Shortness of breath; Patient HX: Left chest pain; SOB; Cough TECHNIQUE: Imaging protocol: Radiologic exam of the chest. Views: 1 view. COMPARISON: CR XR chest 1V portable [id number] 09/20/2023 10:02 AM FINDINGS: Lungs: No focal consolidation. Pleural spaces: No evidence of pneumothorax. No evidence of pleural effusion. Heart/Mediastinum: Cardiomediastinal silhouette is within normal limits. Bones/joints: No evidence of acute osseous abnormality. XR/XR chest 1V portable [id number] IMPRESSION: 1. No acute cardiopulmonary abnormality.
--- NOTE | 2023-12-14 19:51 | ED_ITS ---
HPI - SOB/Dyspnea 2 General: Chief Complaint: Shortness of Breath/Dyspnea Stated Complaint: SOB,Wheezing,Left side CP Time Seen by Provider: 12/14/23 19:43 History of Present Illness: HPI Narrative: 68-year-old female with a history of REGISTER OF DEEDS D and congestive heart failure who presents with a 1 week history of progressively worsening shortness of breath. Patient states she has had a cough which has been productive of clear sputum. She started having pain in the left lower posterior chest wall area today. The pain is sharp and stabbing, worse with deep breaths. She denies associated orthopnea or peripheral edema. She denies weight gain. She states she has not missed her diuretic. She states she feels like she has a flare of her COPD and she needs steroids and antibiotics. She denies fever. She does live in assisted living and states several of the people have been sick. Associated symptoms: Reports chest congestion; Deny chest pain, fever(s), hemoptysis or palpitations Related Data Home Medications Medication Instructions Recorded Confirmed acetaminophen 500 mg tablet 500 mg PO Q6H PRN Pain 05/16/19 09/20/23 (Tylenol Extra Strength) bisacodyl 5 mg tablet,delayed 10 mg PO DAILY PRN Constipation 05/16/19 09/20/23 release (Dulcolax (bisacodyl)) carbamide peroxide 6.5 % ear drops 10 drp otic (ear) Q30D 05/16/19 09/20/23 (Debrox) fluticasone fur. 100 mcg-umeclid 1 inh inhalation DAILY@05/16/19 09/20/23 62.5 mcg-vilant 25 mcg inhalat.powder (Trelegy Ellipta) gabapentin 300 mg capsule 600 mg PO BID@07,199905/16/19 09/20/23 magnesium hydroxide 400 mg/5 mL 30 ml PO DAILY PRN Constipation 05/16/19 09/20/23 oral suspension (Milk of Magnesia) melatonin 5 mg tablet 5 mg PO BEDTIME@199905/16/19 09/20/23 roflumilast 500 mcg tablet 500 mcg PO DAILY@0700 05/16/19 09/20/23 (Daliresp) sodium chloride 0.65 % nasal spray See Rx Instructions .Route .COMPLEX 05/31/19 09/20/23 aerosol (Saline Nasal) venlafaxine 75 mg capsule,extended 75 mg PO DAILY@69905/31/19 09/20/23 release 24 hr levetiracetam 500 mg tablet See Rx Instructions .Route .COMPLEX 06/03/19 09/20/23 Cough Drops See Rx Instructions .Route .COMPLEX 01/30/20 09/20/23 mirabegron 25 mg tablet,extended 25 mg PO DAILY@69910/28/20 09/20/23 release 24 hr (Myrbetriq) promethazine-DM 6.25 mg-15 mg/5 mL 5 ml PO Q6H PRN Cough 10/28/20 09/20/23 oral syrup aspirin 81 mg tablet,delayed 81 mg PO DAILY@12/09/20 09/20/23 release fluoride (sodium) 1.1 % dental See Rx Instructions .Route .COMPLEX 12/09/20 09/20/23 cream (SF 5000 Plus) loperamide 2 mg tablet 2 mg PO QID PRN Diarrhea 12/09/20 09/20/23 pantoprazole 40 mg tablet,delayed 40 mg PO DAILY@12/09/20 09/20/23 release rosuvastatin 40 mg tablet 40 mg PO DAILY@09/08/21 09/20/23 bumetanide 0.5 mg tablet 0.5 mg PO DAILY@01/05/22 09/20/23 carboxymethylcellulose sodium 0.5 1 - 2 drp ophthalmic (eye) QID PRN 01/05/22 09/20/23 % eye drops (Refresh Tears) Dry Eye(S) clotrimazole 1 % topical cream See Rx Instructions .Route .COMPLEX 01/05/22 09/20/23 ipratropium 0.5 mg-albuterol 3 mg 3 ml inhalation Q4H PRN Shortness 01/05/22 09/20/23 (2.5 mg base)/3 mL nebulization Of Breath soln cholecalciferol (vitamin D3) 50 50 mcg PO DAILY@07/09/22 09/20/23 mcg (2,000 unit) capsule (Vitamin D3) empagliflozin 25 mg tablet 25 mg PO DAILY@07/09/22 09/20/23 (Jardiance) insulin degludec 100 unit/mL (3 10 unit SUBCUT BEDTIME 07/09/22 09/20/23 mL) subcutaneous pen (Tresiba FlexTouch U-100 insulin) lidocaine 5 % topical patch 1 patch topical DAILY PRN Pain 07/09/22 09/20/23 vitamins A,C,Q-plsk-pxsfak 4,296 1 cap PO BID@07,19 07/09/22 09/20/23 mcg-226 mg-90 mg capsule (PreserVision AREDS) nystatin 100,000 unit/gram topical 1 applic topical BID PRN Skin 01/21/23 09/20/23 powder Irritation semaglutide 1 mg/dose (4 mg/3 mL) 1 mg SUBCUT Q7D 01/21/23 09/20/23 subcutaneous pen injector (Ozempic) L.acidophil,salivari-Bifido 1 cap PO QPM 09/20/23 09/20/23 bifidum-Strep thermoph 175 mg capsule (Acidophilus Probiotic Blend) ammonium lactate 12 % topical cream 1 applic topical BEDTIME 09/20/23 09/20/23 fluticasone propionate 50 1 spray intranasal QAM 09/20/23 09/20/23 mcg/actuation nasal spray,suspension hydrocortisone 1 % topical cream 1 applic topical TID PRN Skin 09/20/23 09/20/23 Irritation hydroxyzine pamoate 25 mg capsule 25 mg PO Q8H PRN Anxiety 09/20/23 09/20/23 phenylephrine 0.25 %-mineral oil 1 applic KS TID PRN PAIN OR ITCHING 09/20/23 09/20/23 14 %-petrolatm 74.9 % rectal ointment (Preparation H) terbinafine HCl 1 % topical cream See Rx Instructions .Route .COMPLEX 09/20/23 09/20/23 triamcinolone acetonide 0.1 % 1 applic topical BID 09/20/23 09/20/23 topical ointment Previous Rx's Medication Instructions Recorded ondansetron 4 mg disintegrating 4 mg PO Q6H PRN nausea and 01/30/20 tablet vomiting #14 tabs albuterol sulfate 90 mcg/actuation 1 puff inhalation Q6H PRN 07/22/21 aerosol inhaler Shortness Of Breath #8.5 grams Diabetic Shoes #1 ea 11/03/21 tramadol 50 mg tablet 50 mg PO Q8H PRN pain 3 days #9 07/07/24 tabs benzonatate 200 mg capsule 200 mg PO TID PRN cough #20 caps 12/14/23 cefuroxime axetil 250 mg tablet 250 mg PO BID 10 days #20 tabs 12/14/23 prednisone 10 mg tablet 10 mg PO DIRECTED copd 12/14/23 exacerbatio #60 tabs Allergies Allergy/AdvReac Type Severity Reaction Status Date / Time metformin Allergy ADR-Dry Verified 09/20/23 10:07 Mucus Membranes Penicillins Allergy ALGY-Anaphy Verified 09/20/23 10:07 laxis Sulfa (Sulfonamide Allergy ALGY-Anaphy Verified 09/20/23 10:07 Antibiotics) laxis Review of Systems 2 Const: Denies: fever(s), chills, body aches or change in weight Card: Denies: chest pain, palpitations, irregular heart rhythm or edema Resp: Reports: dyspnea, productive cough, wheezing, pain on inspiration and chest congestion; Denies: change in phlegm color or hemoptysis Musc: Denies: extremity swelling PFSH ED 2 PFSH: Medical History Acute exacerbation of chronic obstructive airways disease T12 vertebral fracture Small bowel obstruction Benign essential hypertension with target blood pressure below 140/90 Restrictive lung disease Chronic respiratory failure with hypoxia and hypercapnia Sleep apnea Obesity hypoventilation syndrome Acute on chronic diastolic (congestive) heart failure Nonischemic cardiomyopathy Moderate to severe mitral regurgitation Depression Seizure disorder Hyperlipidemia Type 2 diabetes mellitus Hypertension Obstructive sleep apnea Tricuspid regurgitation Obesity COPD (chronic obstructive pulmonary disease) Diastolic congestive heart failure Pulmonary hypertension Surgical History Ulnar nerve compression History of H/O mitral valve replacement Family History Brother CAD (coronary artery disease) Sister CAD (coronary artery disease) Grandmother Diabetes Mother Stroke Denies family history of Clotting disorder Dementia Chronic kidney disease (CKD) Suicide Anesthesia complication Bleeding disorder Lung disease Cancer Social History Smoking and tobacco/nicotine status: current every day tobacco/nicotine user cigarettes Packs smoked per day: 0.25 Years cigarettes smoked: 33 [ Other cigarette details: Hx of 1PPD x 30 Years, started 1991] Second hand smoke exposure: Yes Alcohol intake: never Substance/Drug Use: never Caregiver/support person: Yes Lives independently: No Housing: Assisted Living Facility Marital status: / Current occupational status: retired and disabled Do you think of yourself as: Straight/Heterosexual Current gender identity: Female Physical Exam 2 Narrative: EXAM NARRATIVE: Patient is in mild distress, pursed respirations but is able to speak in full sentences with 4 L of nasal cannula oxygen HENMT: COMMON NORMALS: normocephalic, atraumatic, external ears normal, Normal external nose present and moist oral mucous membranes HEAD & SCALP: n ormocephalic and atraumatic NOSE: Normal external nose present EXTERNAL EAR: Yes external ears normal Eye: COMMON NORMALS: Equal, round and reactive pupils present, EOMs intact bilaterally and conjunctivae normal CONJUNCTIVA: Yes conjunctivae normal P UPIL: Yes Equal, round and reactive pupils present Neck/C-Spine: COMMON NORMALS: full ROM and supple Chest: COMMONS NORMALS: normal inspection of the chest Resp: OTHER: Tachypneic, pursed lip respirations, diffuse expiratory wheezes in all lung co[place] Cardio: COMMON NORMALS: regular rate and regular rhythm RATE: regular rate RHYTHM: regular rhythm GI: COMMON NORMALS: Normal to inspection, nondistended, normoactive bowel sounds present, Soft to palpation and non-tender PALPATION: Yes Soft to palpation : COMMON NORMALS: Yes no CVA tenderness BLADDER/KIDNEY EXAM: Yes no CVA tenderness Back/Pelvis: COMMON NORMALS: no CVA tenderness Extremity: OTHER: No tenderness, no edema, negative Homans bilaterally Skin: NARRATIVE SKIN EXAM: No rashes noted. Course 2 ED course: 68-year-old female with a history of REGISTER OF DEEDS D, normally on 2 L of oxygen who comes in with a 1 week history of shortness of breath. She has a saturation in the 80s on her baseline 2 L. Saturation is 91% on 4 L per nasal cannula. She has diffuse wheezing in all lung co[place]. Will start an IV, give her IV Solu-Medrol, give her an hour-long DuoNeb nebulizer treatment. Will obtain a chest x-ray, labs, EKG and cardiac enzymes. Will screen for COVID as well as do a D-dimer. Reevaluation(s): Reevaluation #1: Patient's received IV Solu-Medrol 125 mg. She has received an hour-long DuoNeb nebulizer treatment she states she is feeling significantly better. She still does have expiratory wheezes in all upper lung co[place] bilaterally. Saturation is 90% on her baseline 2 L. Will repeat an albuterol nebulizer treatment. At this time, COVID is pending. She does have a slight bump in her initial troponin of 16. Repeat 2-hour troponin is pending at this time. D-dimer is 0.57 which is age corrected appropriate. She is negative for COVID. She does test positive for rhinovirus Reevaluation #2: 2-hour troponin is 14.8 with a delta of 1.18 which is not significant. Patient's BNP is minimally elevated at 146. Her chest x-ray per my interpretation shows cardiomegaly but no infiltrate or effusion. The remainder of her labs are unremarkable. Likely this is a COPD exacerbation with bronchitis. If the patient remains stable oxygenation nguyễn on her baseline 2 L, I feel she can go home. Vital Signs: Vital signs: Vital Signs Temperature 97.9 F 12/14/23 19:34 Pulse Rate 90 12/14/23 23:34 Respiratory Rate 16 12/14/23 22:53 Blood Pressure 123/73 12/14/23 23:34 Pulse Oximetry 93 12/14/23 23:34 Oxygen Delivery Me thod Nasal Cannula 12/14/23 22:53 Oxygen Flow Rate 2 12/14/23 22:53 MDM - SOB/Dyspnea Medical Decision Making See ED course for details. Patient's chest x-ray shows no infiltrate. She does test positive for rhinovirus. Given her productive cough, we will treat her with Ceftin twice daily x 10 days. Deseeding her home on a prednisone taper as well. Will give her Tessalon as needed for cough. Saturation on her baseline 2 L of oxygen is 89 to 90%. With activity, going to have her increase her oxygen to 3. Do feel she stable for discharge home. Lab Data 12/14/23 20:03 12/14/23 20:03 Labs/Radiology: Radiology Impressions Chest X-Ray 12/14/23 19:50 IMPRESSION: 1. No acute cardiopulmonary abnormality. Laboratory Results WBC 8.71 10^3/uL (3.29-11.43) 12/14/23 20:03 RBC 5.44 10^6/uL (3.85-5.65) 12/14/23 20:03 Hgb 14.60 g/dL (11.27-16.99) 12/14/23 20:03 Hct 48.0 % (36-47) H 12/14/23 20:03 MCV 88.2 fl (85-98) 12/14/23 20:03 MCH 26.8 pg (27-33) L 12/14/23 20:03 MCHC 30.4 g/dL (30-55) 12/14/23 20:03 RDW 15.5 % (12.1-15.1) H 12/14/23 20:03 Plt Count 189 10^3/cmm (157-399) 12/14/23 20:03 MPV 11.0 fL (7.4-10.4) H 12/14/23 20:03 Neut % (Auto) 70.7 % 12/14/23 20:03 Lymph % (Auto) 15.7 % 12/14/23 20:03 [place] % (Auto) 8.2 % 12/14/23 20:03 Eos % (Auto) 4.9 % 12/14/23 20:03 Baso % (Auto) 0.2 % 12/14/23 20:03 Neut # (Auto) 6.15 10^3/uL (1.8-7.7) 12/14/23 20:03 Lymph # (Auto) 1.4 10^3/uL (0.8-4.8) 12/14/23 20:03 [place] # (Auto) 0.7 10^3/uL (0.2-0.9) 12/14/23 20:03 Eos # (Auto) 0.4 10^3/uL (0.0-0.8) 12/14/23 20:03 Baso # (Auto) 0.0 10^3/uL (0.0-0.1) 12/14/23 20:03 Nucleated RBC % (auto) 0 % 12/14/23 20:03 Nucleated RBCs # 0.0 /100WBC 12/14/23 20:03 D-Dimer 0.57 ug/mLFEU (0-0.59) 09/27/24 20:03 Specimen Type Arterial 12/14/23 20:10 Sample Site Brachial, left 12/14/23 20:10 ABG pH 7.35 (7.35-7.45) 12/14/23 20:10 ABG pCO2 56.6 mmHg (35-45) H 12/14/23 20:10 ABG pO2 78.9 mmHg (80.0-100.0) L 12/14/23 20:10 ABG HCO3 30.8 mmol/L (22-26) H 12/14/23 20:10 ABG Base Excess 3.5 mmol/L (-2.0-2.0) H 12/14/23 20:10 Miguel Test N/a 12/14/23 20:10 Hematocrit 45.3 % (37-47) 12/14/23 20:10 Hgb O2 Saturation 92.7 % (95-100) L 12/14/23 20:10 Carboxyhemoglobin 3.4 %THgb (0.4-20.1) 12/14/23 20:10 Methemoglobin 0.0 % (0.4-1.5) L 12/14/23 20:10 Total Hemoglobin 14.8 g/dL (12-16) 12/14/23 20:10 O2 Delivery Device Nc 12/14/23 20:10 O2 Liters/Min 4.0 % 12/14/23 20:10 Paratransit Driver ID Nuno 12/14/23 20:10 Sodium 137 mmol/L (136-145) 12/14/23 20:03 Potassium 4.6 mmol/L (3.5-5.1) 12/14/23 20:03 Chloride 95 mmol/L (98-107) L 12/14/23 20:03 Carbon Dioxide 29 mmol/L (22-29) 12/14/23 20:03 Anion Gap 17.6 (5-19) 12/14/23 20:03 BUN 21 mg/dL (8-23) 12/14/23 20:03 Creatinine 0.9 mg/dL (0.5-0.9) 12/14/23 20:03 GFR Calculation 61.9 mL/min (90-130) L 12/14/23 20:03 Glucose 148 mg/dL (65-115) H 12/14/23 20:03 POC Glucose 140 mg/dL (70-110) H 12/14/23 20:09 Calculated Osmolality 290 mOsm/kg (285-295) 12/14/23 20:03 Lactic Acid 1.7 mmol/L (0.5-2.2) 12/14/23 20:03 Calcium 9.8 mg/dL (8.5-10.5) 12/14/23 20:03 Total Bilirubin 0.4 mg/dL (0.15-1.2) 12/14/23 20:03 AST 19 U/L (0-32) 12/14/23 20:03 ALT 12 U/L (0-33) 12/14/23 20:03 Alkaline Phosphatase 94 U/L (35-105) 12/14/23 20:03 Troponin T Baseline 16 ng/L (0-10) H 12/14/23 20:03 Troponin T 120 Minute 14.82 ng/L (0-10) H 12/14/23 22:12 Delta Troponin T -1.18 ABS# (0-10) L 12/14/23 22:12 NT-Pro-B Natriuret Pep 146 pg/mL (0-125) H 12/14/23 20:03 Total Protein 7.1 g/dL (6.6-8.7) 12/14/23 20:03 Albumin 4.5 g/dL (3.5-5.2) 12/14/23 20:03 Globulin 2.6 g/dL (1.3-4.6) 12/14/23 20:03 Coronavirus 229E (PCR) Not detected (NOT DETECT) 12/14/23 20:15 Human Metapneumovir PCR Not detected (NOT DETECT) 12/14/23 22:48 Entero/Rhino (PCR) Detected (NOT DETECT) A 12/14/23 22:48 SARS-CoV-2 (PCR) Not detected (NOT DETECT) 12/14/23 20:15 All radiology interpretation(s) finalized by discharge Discharge Plan Discharge Patient Disposition: Home Clinical Impression: Acute exacerbation of chronic obstructive airways disease, Acute bronchitis due to Rhinovirus Condition: Stable Prescriptions: New cefuroxime axetil 250 mg tablet 250 mg PO BID 10 Days Qty: 20 0RF prednisone 10 mg tablet 10 mg PO DIRECTED Qty: 60 0RF Rx Instructions: see taper instructions benzonatate 200 mg capsule 200 mg PO TID PRN (Reason: cough) Qty: 20 0RF No Action rosuvastatin 40 mg tablet 40 mg PO DAILY@20 (DME) Diabetic Shoes See Rx Instructions .Route .MEDSUPPLY Qty: 1 0RF Rx Instructions: As directed albuterol sulfate 90 mcg/actuation HFA aerosol inhaler 1 puff INHALATION Q6H PRN (Reason: Shortness Of Breath) Qty: 8.5 3RF Cough Drops See Rx Instructions .ROUTE .COMPLEX Rx Instructions: may keep at bedside ondansetron 4 mg tablet,disintegrating 4 mg PO Q6H PRN (Reason: nausea and vomiting) Qty: 14 0RF mirabegron [Myrbetriq] 25 mg tablet extended release 24 hr 25 mg PO DAILY@0700 promethazine-DM 6.25-15 mg/5 mL Syrup 5 ml PO Q6H PRN (Reason: Cough) fluoride (sodium) [SF 5000 Plus] 1.1 % Cream See Rx Instructions .ROUTE .COMPLEX Rx Instructions: [place] on teeth twice daily with use of regular tooth paste do not eat or drink 30 mins after (use at 07:00 & 20:00) aspirin 81 mg tablet,delayed release (DR/EC) 81 mg PO DAILY@07 loperamide 2 mg Tablet 2 mg PO QID PRN (Reason: Diarrhea) pantoprazole 40 mg tablet,delayed release (DR/EC) 40 mg PO DAILY@07 Debrox 6.5 % Drops 10 drp otic (ear) Q30D Rx Instructions: ON THE OF EACH MONTH. roflumilast [Daliresp] 500 mcg tablet 500 mcg PO DAILY@0700 Trelegy Ellipta 100-62.5-25 mcg blister with device 1 inh inhalation DAILY@07 acetaminophen [Tylenol Extra Strength] 500 mg Tablet 500 mg PO Q6H PRN (Reason: Pain) magnesium hydroxide [Milk of Magnesia] 400 mg/5 mL Suspension 30 ml PO DAILY PRN (Reason: Constipation) Rx Instructions: IF NO BM FOR 3 DAYS gabapentin 300 mg capsule 600 mg PO BID@0700,2000 bisacodyl [Dulcolax (bisacodyl)] 5 mg Tablet,Delayed Release (Dr/Ec) 10 mg PO DAILY PRN (Reason: Constipation) melatonin 5 mg Tablet 5 mg PO BEDTIME@2000 venlafaxine 75 mg Capsule,Extended Release 24hr 75 mg PO DAILY@0700 Saline Nasal 0.65 % Aerosol,[place] See Rx Instructions .ROUTE .COMPLEX Rx Instructions: SQUEEZE INTO DRY NOSTRILS TWICE DAILY THEN FOLLOW WITH BACTROBAN. USE AT 0700 AND 2000 levetiracetam 500 mg tablet See Rx Instructions .ROUTE .COMPLEX Rx Instructions: TAKE 500 MG BY MOUTH IN THE MORNING AND 1,000 MG IN THE PM nystatin 100,000 unit/gram powder 1 applic topical BID PRN (Reason: Skin Irritation) Ozempic 1 mg/dose (4 mg/3 mL) pen injector 1 mg SUBCUT Q7D Rx Instructions: MONDAYS terbinafine HCl 1 % cream See Rx Instructions .ROUTE .COMPLEX Rx Instructions: APPLY TO THE AFFECTED AREA(S) WASH AND TOWEL DRY AFFECTED AREA TWICE PER DAY UNTIL HEALED. hydrocortisone 1 % Cream 1 applic TOPICAL TID PRN (Reason: Skin Irritation) triamcinolone acetonide 0.1 % ointment 1 applic TOPICAL BID fluticasone propionate 50 mcg/actuation spray,suspension 1 spray INTRANASAL QAM hydroxyzine pamoate 25 mg capsule 25 mg PO Q8H PRN (Reason: Anxiety) Acidophilus Probiotic Blend 175 mg Capsule 1 cap PO QPM Preparation H 0.25-14-74.9 % Ointment 1 applic KS TID PRN (Reason: PAIN OR ITCHING) ammonium lactate 12 % cream 1 applic topical BEDTIME tramadol 50 mg tablet 50 mg PO Q8H PRN (Reason: pain) 3 Days Qty: 9 0RF bumetanide 0.5 mg tablet 0.5 mg PO DAILY@07 ipratropium-albuterol 0.5 mg-3 mg(2.5 mg base)/3 mL Solution For Nebulization 3 ml INHALATION Q4H PRN (Reason: Shortness Of Breath) carboxymethylcellulose sodium [Refresh Tears] 0.5 % Drops 1 - 2 drp ophthalmic (eye) QID PRN (Reason: Dry Eye(S)) clotrimazole 1 % Cream See Rx Instructions .ROUTE .COMPLEX Rx Instructions: apply topically to scales in right foot (toes) at bedtime. cholecalciferol (vitamin D3) [Vitamin D3] 50 mcg (2,000 unit) Capsule 50 mcg PO DAILY@07 Jardiance 25 mg Tablet 25 mg PO DAILY@07 lidocaine 5 % Adhesive Patch,Medicated 1 patch TOPICAL DAILY PRN (Reason: Pain) Rx Instructions: leave on most painful area for up to 12 hrs then off for 12 hours PreserVision AREDS 14,320-226-200 [id number]-zi-oxqm capsule 1 cap PO BID@07,19 insulin degludec [Tresiba FlexTouch U-100] 100 unit/mL (3 mL) Insulin Pen 10 unit SUBCUT BEDTIME Discharge Orders: Discharge ED (Routine); Ordered 12/14/23 Ordered By: Magi Rincon Referrals: Tashi Acosta MD [Primary Care Provider] - (Follow-up next week with your primary care provider) Discharge Diet: Advance as tolerated Discharge Activity: Increase activity as tolerated Patient Instructions: Bronchitis (Acute) - Adult, COPD (Chronic Obstructive Pulmonary Disease) (DC), Opioid Safety, Pain Management Activity Restrictions/Additional Instructions: Take the Ceftin twice daily until gone. Take the Tessalon 3 times daily as needed for cough. You can turn your oxygen up to 3 L in order to keep your saturations over 90% with activity. Otherwise keep your oxygen at 2 L if at all possible. Taper the prednisone per the prescription. Use your inhaler as needed and prescribed. Use your nebulizer every 4 hours and as needed. Return if you have increased shortness of breath, worsening symptoms or worsening pain. Follow-up next week with your primary care provider Coding Level of Care Code ED Maintenance Repairman for Kanchan Abdi
[2023-12-14] MEDS: ipratropium-albuterol 3 mL Neb 9 ML INHALATION (20:05)
[2023-12-14] MEDS: methylPREDNISolone sod succ 125 mg/2 mL INJ IV (20:15)
[2023-12-14 20:22] LABS: ABG PCO2 56.6 mmHg (35-45); ABG PH Result 7.35 (7.35-7.45); Arterial Blood Gas Hematocrit 45.3 % (37-47); Base Excess ABG 3.5 mmol/L (-2.0-2.0); Blood Gas Operator Identificat SAM; Blood Gas Sample Site Brachial, left; Blood Gas Sample Type Arterial; Carboxyhemoglobin 3.4 %THgb (0.4-20.1); HCO3 ABG 30.8 mmol/L (22-26); HGB O2 Sat 92.7 % (95-100); Oxygen Device NC; PO2 ABG 78.9 mmHg (80.0-100.0); Total Hemoglobin 14.8 g/dL (12-16)
[2023-12-14 20:22] LABS: Basophils % 0.2 %; Eosinophils # 0.4 10^3/uL (0.0-0.8); Eosinophils % 4.9 %; Lymphocytes # 1.4 10^3/uL (0.8-4.8); Lymphocytes % 15.7 %; Mean Corpuscular HGB Conc 30.4 g/dL (30-55); Mean Corpuscular Hemoglobin 26.8 pg (27-33); Mean Corpuscular Volume 88.2 fl (85-98); Monocytes # 0.7 10^3/uL (0.2-0.9); Monocytes % 8.2 %; Neutrophils # 6.15 10^3/uL (1.8-7.7); Neutrophils % 70.7 %; Nucleated Red Blood Cells % 0 %; Platelet Count 189 10^3/cmm (157-399); Red Blood Count 5.44 10^6/uL (3.85-5.65); Red Cell Distribution Width 15.5 % (12.1-15.1); White Blood Count 8.71 10^3/uL (3.29-11.43)
[2023-12-14 20:41] LABS: D Dimer 0.57 ug/mLFEU (0-0.59)
[2023-12-14 20:49] LABS: Lactic Sepsis W/Reflex 1.7 mmol/L (0.5-2.2)
[2023-12-14 20:53] LABS: Troponin(5th) Baseline 16 ng/L (0-10)
[2023-12-14 21:01] LABS: Alanine Aminotransferase 12 U/L (0-33); Albumin Level 4.5 g/dL (3.5-5.2); Alkaline Phosphatase 94 U/L (35-105); Anion Gap 17.6 (5-19); Aspartate Amino Transferase 19 U/L (0-32); Blood Urea Nitrogen 21 mg/dL (8-23); Calcium 9.8 mg/dL (8.5-10.5); Carbon Dioxide 29 mmol/L (22-29); Chloride 95 mmol/L (98-107); Creatinine Clr Calc Pharmacy 74.9691; Globulin 2.6 g/dL (1.3-4.6); Glomerular Filtration Rate 61.9 mL/min (90-130); Glucose 148 mg/dL (65-115); NT Pro B Type Natriuretic Pept 146 pg/mL (0-125); Osmolality Calculated 290 mOsm/kg (285-295); Potassium 4.6 mmol/L (3.5-5.1); Sodium 137 mmol/L (136-145); Total Bilirubin 0.4 mg/dL (0.15-1.2); Total Protein 7.1 g/dL (6.6-8.7)
--- NOTE | 2023-12-14 22:23 | ECG_ITS ---
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 Measurements Intervals [place] Rate: 83 P: 58 NM: 182 QRS: 77 QRSD: 106 T: 63 QT: 406 QTc: 478 Interpretive Statements SINUS RHYTHM MODERATE INTRAVENTRICULAR CONDUCTION DELAY [105+ ms QRS DURATION, 80+ ms Q/S IN V1/V2, NO Q AND 60+ ms R IN I/aVL/V5/V6] Compared to ECG 12/14/2023 19:56:20 Intraventricular conduction delay now present Myocardial infarct finding no longer present Electronically Signed On 12-17-2023 18:59:46 CDT by Eliezer Mills M.D. [id number]
[2023-12-14 22:32] LABS: Troponin 5 2HR 14.82 ng/L (0-10)
[2023-12-14 22:33] LABS: Troponin 5 2HR Delta -1.18 ABS# (0-10)
[2023-12-14 22:41] LABS: Adenovirus Not Detected (NOT DETECT); Chlamydia Pneumoniae Not Detected (NOT DETECT); Coronavirus 229E,HKU1,NL63,OC4 Not Detected (NOT DETECT); Human Metapneumovirus Not Detected (NOT DETECT); Human Rhinovirus/Enterovirus Detected (NOT DETECT); Influenza A Not Detected (NOT DETECT); Influenza A H1 Not Detected (NOT DETECT); Influenza A H1-2009 Not Detected (NOT DETECT); Influenza A H3 Not Detected (NOT DETECT); Influenza B Not Detected (NOT DETECT); Mycoplasma Pneumoniae Not Detected (NOT DETECT); Parainfluenza Virus Type 1 Not Detected (NOT DETECT); Parainfluenza Virus Type 2 Not Detected (NOT DETECT); Parainfluenza Virus Type 3 Not Detected (NOT DETECT); Parainfluenza Virus Type 4 Not Detected (NOT DETECT); Respiratory Syncytial Virus A Not Detected (NOT DETECT); Respiratory Syncytial Virus B Not Detected (NOT DETECT); SARS-COV-2 Not Detected (NOT DETECT)
[2023-12-14 22:49] LABS: Human Metapneumovirus Not Detected (NOT DETECT); Human Rhinovirus/Enterovirus Detected (NOT DETECT); Results from Genmark
[2023-12-14] MEDS: albuterol 2.5 mg/3 mL Neb INHALATION (22:53)
[2023-12-14 23:24] LABS: Glucose Point of Care 140 mg/dL (70-110)
== END 2023-12-14 23:30 | disposition home or self-care (01) ==
PROVIDERS: Emergency Provider Emergency Medicine; PCP Family Medicine
DX: J44.0 Chronic obstructive pulmonary disease with (acute) lower respiratory infection (principal); J20.6 Acute bronchitis due to rhinovirus; J44.1 Chronic obstructive pulmonary disease with (acute) exacerbation; Z79.82 Long term (current) use of aspirin; Z79.85 Long-term (current) use of injectable non-insulin antidiabetic drugs; Z79.4 Long term (current) use of insulin; Z11.52 Encounter for screening for COVID-19; F17.210 Nicotine dependence, cigarettes, uncomplicated; I11.0 Hypertensive heart disease with heart failure; I50.32 Chronic diastolic (congestive) heart failure; E78.5 Hyperlipidemia, unspecified; E11.9 Type 2 diabetes mellitus without complications
CPT/HCPCS: 36415; 36416; 36600; 71045; 80053; 82805; 82962; 83605; 83880; 84484; 85025; 85378; 87070; 87205; 87635; 87801; 93005; 94640; 96374; 99285; J2919; J7613

== ENCOUNTER 2023-12-17 11:48 | Outpatient (CLI) | payer MEDICARE, MEDICAID, SELFPAY ==
--- NOTE | 2023-12-17 12:00 | CT_ITS ---
WS: [id number] CT chest wo con [id number] HISTORY: F/U lung nodules TECHNIQUE: Axial imaging performed through the thorax. Coronal and sagittal reformats are submitted. All CT scans at [facility] use at least one of these dose optimization techniques: automated exposure control; mA and/or kV adjustment per patient size (includes targeted exams where dose is mat ched to clinical indication); or iterative reconstruction. CONTRAST: None DLP: 546.24 mGy.cm COMPARISON: 06/14/2023 Lungs and central airway: No change in the partially calcified subpleural RIGHT upper lobe nodule. Mi cronodule at the RIGHT lung base is stable. Ovoid nodule in the lingula has resolved since the prior study. No new mass or nodule. Mild focal atelectasis and pleural thickening at the LEFT lung base is stable. There is breathing motion artifact at the lung bases. Mild atelectasis RIGHT middle lobe with bronchial thickening. Pleura: Normal. No pleural effusion. Heart and pericardium: Mild enlargement. Mediastinum and xavier: Hilar regions are difficult to evaluate without IV contrast. There are some lym ph nodes present and some of these contain calcification indicating they are benign. Vessels: Mild atherosclerosis aorta. Chest wall and lower neck: No soft tissue masses. Upper abdomen: Small hiatal hernia. Mild hepatic steatosis. No adrenal mass. Visualized pancreas is f atty replaced. Osseous structures: No destructive process. CT/CT chest wo con [id number] IMPRESSION: 1. Previously described nodule in the lingula has resolved. 2. There are no new or enlarging pulmonary nodules or masses. Tiny micronodule s in the RIGHT upper and RIGHT lower lobe are unchanged. Return to annual lung screening. 3. Focal bronchiectasis RIGHT middle lobe.
== END 2023-12-17 11:49 | disposition home or self-care (01) ==
LOC: RAD 11:48
PROVIDERS: PCP Family Medicine; Visit Provider Internal Medicine Pulmonary Disease
DX: R91.8 Other nonspecific abnormal finding of lung field (principal); J47.9 Bronchiectasis, uncomplicated; K44.9 Diaphragmatic hernia without obstruction or gangrene
CPT/HCPCS: 71250

== ENCOUNTER → 2024-01-23 10:09 | Outpatient (BNVA) | payer MEDICARE, MEDICAID, SELFPAY | PROVIDERS: PCP Family Medicine; Visit Provider Surgery | DX: L05.01 Pilonidal cyst with abscess (principal) | CPT/HCPCS: 99203 ==

== ENCOUNTER 2024-03-22 12:50 | Emergency (ER) | payer MEDICARE, MEDICAID, SELFPAY ==
[2024-03-22 12:56] VITALS: BP 100/63; PULSE 88; RESP 18; TEMP 36.4; O2SAT 92; BMI 38.9
--- NOTE | 2024-03-22 13:10 | ECG_ITS ---
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 Measurements Intervals [place] Rate: 81 P: 56 HI: 175 QRS: 69 QRSD: 98 T: 72 QT: 403 QTc: 469 Interpretive Statements SINUS RHYTHM POSSIBLE ANTERIOR MYOCARDIAL INFARCTION , OF INDETERMINATE AGE [30 ms Q WAVE IN V3/V4, OR R < 0.2 mV IN V4] Compared to ECG 12/14/2023 22:23:36 Myocardial infarct finding now present Intraventricular conduction delay no longer present Electronically Signed On 03-22-2024 21:19:[address] POLICE OFFICER by Jay Adler M.D. [id number]
--- NOTE | 2024-03-22 13:10 | XRR_ITS ---
PROCEDURE INFORMATION: Exam: XR Chest Exam date and time: 03/22/2024 1:35 PM Age: 68 years old Clinical indication: Cough and dyspnea; Additional info: Dyspnea/cough TECHNIQUE: Imaging protocol: Radiologic exam of the chest. Views: 1 view. COMPARISON: CT chest con [id number] 12/17/2023 12:00 PM FINDINGS: Lungs: Unremarkable. No consolidation. Pleural spaces: Unremarkable. No pleural effusion. No pneumothorax. Heart/Mediastinum: Unremarkable. No cardiomegaly. Bones/joints: Unremarkable. XR/XR chest 1V portable [id number] IMPRESSION: No acute findings.
[2024-03-22 13:12] VITALS: BP 133/64; PULSE 86; RESP 16; O2SAT 94
--- NOTE | 2024-03-22 13:21 | ED_ITS ---
HPI - URI/Sore Throat 2 General: Chief Complaint: Upper Respiratory Infection Stated Complaint: SOB Time Seen by Provider: 03/22/24 13:10 History of Present Illness: 68-year-old female presents to the [facility] ency room with complaints of cough congestion headache symptoms began yesterday she was exposed to COVID. Patient reports headache myalgias cough and congestion. No diarrhea. No vomiting. No dysuria urgency or frequency no chest pain or abdominal pain. Associated symptoms: Reports headache(s); Deny abdominal pain, chills, chest pain or fever(s) Related Data Home Medications Medication Instructions Recorded Confirmed acetaminophen 500 mg tablet 500 mg PO Q6H PRN Pain 05/16/19 01/23/24 (Tylenol Extra Strength) bisacodyl 5 mg tablet,delayed 10 mg PO DAILY PRN Constipation 05/16/19 01/23/24 release (Dulcolax (bisacodyl)) carbamide peroxide 6.5 % ear drops 10 drp otic (ear) Q30D 05/16/19 01/23/24 (Debrox) fluticasone fur. 100 mcg-umeclid 1 inh inhalation DAILY@05/16/19 01/23/24 62.5 mcg-vilant 25 mcg inhalat.powder (Trelegy Ellipta) gabapentin 300 mg capsule 600 mg PO BID@07,199905/16/19 01/23/24 magnesium hydroxide 400 mg/5 mL 30 ml PO DAILY PRN Constipation 05/16/19 01/23/24 oral suspension (Milk of Magnesia) melatonin 5 mg tablet 5 mg PO BEDTIME@199905/16/19 01/23/24 roflumilast 500 mcg tablet 500 mcg PO DAILY@69905/16/19 01/23/24 (Daliresp) sodium chloride 0.65 % nasal spray See Rx Instructions .Route .COMPLEX 05/31/19 01/23/24 aerosol (Saline Nasal) venlafaxine 75 mg capsule,extended 75 mg PO DAILY@0705/31/19 01/23/24 release 24 hr levetiracetam 500 mg tablet See Rx Instructions .Route .COMPLEX 06/03/19 01/23/24 Cough Drops See Rx Instructions .Route .COMPLEX 01/30/20 01/23/24 mirabegron 25 mg tablet,extended 25 mg PO DAILY@07 10/28/20 01/23/24 release 24 hr (Myrbetriq) promethazine-DM 6.25 mg-15 mg/5 mL 5 ml PO Q6H PRN Cough 10/28/20 01/23/24 oral syrup aspirin 81 mg tablet,delayed 81 mg PO DAILY@12/09/20 01/23/24 release fluoride (sodium) 1.1 % dental See Rx Instructions .Route .COMPLEX 12/09/20 01/23/24 cream (SF 5000 Plus) loperamide 2 mg tablet 2 mg PO QID PRN Diarrhea 12/09/20 01/23/24 pantoprazole 40 mg tablet,delayed 40 mg PO DAILY@12/09/20 01/23/24 release rosuvastatin 40 mg tablet 40 mg PO DAILY@09/08/21 01/23/24 bumetanide 0.5 mg tablet 0.5 mg PO DAILY@01/05/22 01/23/24 carboxymethylcellulose sodium 0.5 1 - 2 drp ophthalmic (eye) QID PRN 01/05/22 01/23/24 % eye drops (Refresh Tears) Dry Eye(S) clotrimazole 1 % topical cream See Rx Instructions .Route .COMPLEX 01/05/22 01/23/24 ipratropium 0.5 mg-albuterol 3 mg 3 ml inhalation Q4H PRN Shortness 01/05/22 01/23/24 (2.5 mg base)/3 mL nebulization Of Breath soln cholecalciferol (vitamin D3) 50 50 mcg PO DAILY@07/09/22 01/23/24 mcg (2,000 unit) capsule (Vitamin D3) empagliflozin 25 mg tablet 25 mg PO DAILY@07/09/22 01/23/24 (Jardiance) insulin degludec 100 unit/mL (3 10 unit SUBCUT BEDTIME 07/09/22 01/23/24 mL) subcutaneous pen (Tresiba FlexTouch U-100 insulin) lidocaine 5 % topical patch 1 patch topical DAILY PRN Pain 07/09/22 01/23/24 vitamins A,C,I-rodf-xnpmab 4,296 1 cap PO BID@07,07/09/22 01/23/24 mcg-226 mg-90 mg capsule (PreserVision AREDS) nystatin 100,000 unit/gram topical 1 applic topical BID PRN Skin 01/21/23 01/23/24 powder Irritation semaglutide 1 mg/dose (4 mg/3 mL) 1 mg SUBCUT Q7D 01/21/23 01/23/24 subcutaneous pen injector ([employer]) L.acidophil,salivari-Bifido 1 cap PO QPM 09/20/23 01/23/24 bifidum-Strep thermoph 175 mg capsule (Acidophilus Probiotic Blend) ammonium lactate 12 % topical cream 1 applic topical BEDTIME 09/20/23 01/23/24 fluticasone propionate 50 1 spray intranasal QAM 09/20/23 01/23/24 mcg/actuation nasal spray,suspension hydrocortisone 1 % topical cream 1 applic topical TID PRN Skin 09/20/23 01/23/24 Irritation hydroxyzine pamoate 25 mg capsule 25 mg PO Q8H PRN Anxiety 09/20/23 01/23/24 phenylephrine 0.25 %-mineral oil 1 applic VT TID PRN PAIN OR ITCHING 09/20/23 01/23/24 14 %-petrolatm 74.9 % rectal ointment (Preparation H) terbinafine HCl 1 % topical cream See Rx Instructions .Route .COMPLEX 09/20/23 01/23/24 triamcinolone acetonide 0.1 % 1 applic topical BID 09/20/23 01/23/24 topical ointment Previous Rx's Medication Instructions Recorded ondansetron 4 mg disintegrating 4 mg PO Q6H PRN nausea and 01/30/20 tablet vomiting #14 tabs albuterol sulfate 90 mcg/actuation 1 puff inhalation Q6H PRN 07/22/21 aerosol inhaler Shortness Of Breath #8.5 grams Diabetic Shoes #1 ea 11/03/21 tramadol 50 mg tablet 50 mg PO Q8H PRN pain 3 days #9 09/23/23 tabs benzonatate 200 mg capsule 200 mg PO TID PRN cough #20 caps 12/14/23 prednisone 10 mg tablet 10 mg PO DIRECTED copd 12/14/23 exacerbatio #60 tabs albuterol sulfate 90 mcg/actuation 2 inh inhalation Q4H PRN shortness 03/22/24 aerosol inhaler of breath or wheezing #18 grams nirmatrelvir 300 mg (150 mg See Rx Instructions PO .COMPLEX 03/22/24 x2)-ritonavir 100 mg tablet,dose #30 ea pack (Paxlovid) Allergies Allergy/AdvReac Type Severity Reaction Status Date / Time metformin Allergy ADR-Dry Verified 03/22/24 13:03 Mucus Membranes Penicillins Allergy ALGY-Anaphy Verified 03/22/24 13:03 laxis Sulfa (Sulfonamide Allergy ALGY-Anaphy Verified 03/22/24 13:03 Antibiotics) laxis Review of Systems 2 Const: Denies: fever(s) or chills Card: Denies: chest pain Resp: Reports: dyspnea, non-productive cough and chest congestion GI: Denies: abdominal pain : Denies: dysuria, urinary frequency or urinary urgency Musc: Denies: neck pain or back pain Skin/Breast: Denies: rash Neuro: Reports: headache(s) PFSH ED 2 PFSH: Medical History Acute exacerbation of chronic obstructive airways disease T12 vertebral fracture Small bowel obstruction Benign essential hypertension with target blood pressure below 140/90 Restrictive lung disease Chronic respiratory failure with hypoxia and hypercapnia Sleep apnea Obesity hypoventilation syndrome Acute on chronic diastolic (congestive) heart failure Nonischemic cardiomyopathy Moderate to severe mitral regurgitation Depression Seizure disorder Hyperlipidemia Type 2 diabetes mellitus Hypertension Obstructive sleep apnea Tricuspid regurgitation Obesity COPD (chronic obstructive pulmonary disease) Diastolic congestive heart failure Pulmonary hypertension Surgical History Ulnar nerve compression History of H/O mitral valve replacement Family History Brother CAD (coronary artery disease) Sister CAD (coronary artery disease) Grandmother Diabetes Mother Stroke Denies family history of Clotting disorder Dementia Chronic kidney disease (CKD) Suicide Anesthesia complication Bleeding disorder Lung disease Cancer Social History Smoking and tobacco/nicotine status: never used tobacco/nicotine Second hand smoke exposure: Yes Alcohol intake: never Substance/Drug Use: never Caregiver/support person: Yes Lives independently: No Housing: Assisted Living Facility Marital status: / Current occupational status: retired and disabled Do you think of yourself as: Straight/Heterosexual Current gender identity: Female Physical Exam 2 Const: GENERAL APPEARANCE: cooperative ORIENTATION/CONSCIOUSNESS: Yes awake, Yes oriented to person, Yes oriented to place and Yes oriented to time HENMT: COMMON NORMALS: normocephalic, atraumatic and hearing grossly normal bilaterally HEAD & SCALP: normocephalic and atraumatic Resp: COMMON NORMALS: normal respiratory effort, No retractions, No use of accessory muscles and clear to auscultation bilaterally AUSCULTATION: clear to auscultation bilaterally Cardio: COMMON NORMALS: regular rate, regular rhythm and No murmurs present (Cardio) RATE: regular rate RHYTHM: regular rhythm GI: COMMON NORMALS: Soft to palpation and No hepatosplenomegaly present A USCULTATION: Yes normoactive bowel sounds PALPATION: Yes Soft to palpation, No Tenderness to palpation present (GI), No Guarding due to palpation present (GI) and Yes No hepatosplenomegaly present Extremity: COMMON NORMALS: normal to inspection, capillary refill normal, no clubbing, cyanosis or edema, no calf tenderness and no pedal edema Neuro: SENSORIUM/ORIENTATION: Yes oriented to person, Yes oriented to place and Yes oriented to time Skin: COMMON NORMALS: no rashes or lesions noted GENERAL SKIN EXAM: no rashes or lesions noted Course 2 Vital Signs: Vital signs: Vital Signs Temperature 97.6 F 03/22/24 12:56 Pulse Rate 86 03/22/24 13:12 Respiratory Rate 16 03/22/24 13:12 Blood Pressure 133/64 03/22/24 13:12 Pulse Oximetry 94 03/22/24 13:12 Oxygen Delivery Me thod Room Air 03/22/24 13:12 MDM - URI/Sore Throat Medical Decision Making Labs and imaging reviewed. Patient positive for COVID no acute findings on the chest x-ray. White count is normal. Will discharge home on Paxlovid. Can use albuterol as needed. Follow-up with primary care. Medical Records I reviewed the patient's medical records. Lab Data I reviewed the patient's lab results. 03/22/24 13:29 03/22/24 13:29 Radiology Impressions Chest X-Ray 03/22/24 13:10 IMPRESSION: No acute findings. Laboratory Results WBC 5.82 10^3/uL (3.29-11.43) 03/22/24 13: RBC 5.30 10^6/uL (3.85-5.65) 03/22/24 13:29 Hgb 14.10 g/dL (11.27-16.99) 03/22/24 13:29 Hct 45.6 % (36-47) 03/22/24 13:29 MCV 86.0 fl (85-98) 03/22/24 13:29 MCH 26.6 pg (27-33) L 03/22/24 13:29 MCHC 30.9 g/dL (30-55) 03/22/24 13:29 RDW 15.2 % (12.1-15.1) H 03/22/24 13:29 Plt Count 156 10^3/cmm (157-399) L 03/22/24 13:29 MPV 10.9 fL (7.4-10.4) H 03/22/24 13:29 Neut % (Auto) 61.6 % 03/22/24 13:29 Lymph % (Auto) 19.9 % 03/22/24 13:29 Green % (Auto) 11.9 % 03/22/24 13:29 Eos % (Auto) 5.8 % 03/22/24 13:29 Baso % (Auto) 0.5 % 03/22/24 13:29 Neut # (Auto) 3.58 10^3/uL (1.8-7.7) 03/22/24 13:29 Lymph # (Auto) 1.2 10^3/uL (0.8-4.8) 03/22/24 13:29 Green # (Auto) 0.7 10^3/uL (0.2-0.9) 03/22/24 13:29 Eos # (Auto) 0.3 10^3/uL (0.0-0.8) 03/22/24 13:29 Baso # (Auto) 0.0 10^3/uL (0.0-0.1) 03/22/24 13:29 Nucleated RBC % (auto) 0 % 03/22/24 13:29 Nucleated RBCs # 0.0 /100WBC 03/22/24 13:29 Sodium 137 mmol/L (136-145) 03/22/24 13:29 Potassium 4.1 mmol/L (3.5-5.1) 03/22/24 13:29 Chloride 96 mmol/L (98-107) L 03/22/24 13:29 Carbon Dioxide 29 mmol/L (22-29) 03/22/24 13:29 Anion Gap 16.1 (5-19) 03/22/24 13:29 BUN 14 mg/dL (8-23) 03/22/24 13:29 Creatinine 0.8 mg/dL (0.5-0.9) 03/22/24 13:29 GFR Calculation 70.9 mL/min (90-130) L 03/22/24 13:29 Glucose 168 mg/dL (65-115) H 03/22/24 13:29 Calculated Osmolality 288 mOsm/kg (285-295) 03/22/24 13:29 Calcium 8.8 mg/dL (8.5-10.5) 03/22/24 13:29 Total Bilirubin 0.3 mg/dL (0.15-1.2) 03/22/24 13:29 AST 22 U/L (0-32) 03/22/24 13:29 ALT 11 U/L (0-33) 03/22/24 13:29 Alkaline Phosphatase 100 U/L (35-105) 03/22/24 13:29 Total Protein 7.1 g/dL (6.6-8.7) 03/22/24 13:29 Albumin 4.2 g/dL (3.5-5.2) 03/22/24 13:29 Globulin 2.9 g/dL (1.3-4.6) 03/22/24 13:29 Coronavirus (PCR) Positive (Negative) A 03/22/24 13:06 Influenza A (PCR) Negative (Negative) 03/22/24 13:06 Influenza Type B (PCR) Negative (Negative) 03/22/24 13:06 RSV (PCR) Negative (Negative) 03/22/24 13:06 All radiology interpretation(s) finalized by discharge Discharge Plan Discharge Patient Disposition: Home Clinical Impression: COVID-19 Clinical Impression: (Ruled Out): Benign essential hypertension with target blood pressure below 140/90, Streptococcal bacteremia, Elevated lipase Condition: Stable Prescriptions: New Paxlovid 300 mg (150 mg x 2)-100 mg tablets,dose pack See Rx Instructions .ROUTE .COMPLEX Qty: 30 0RF Rx Instructions: take TWO 150 mg tablets of nirmatrelvir with ONE 100 mg tablet of ritonavir twice daily for 5 days albuterol sulfate 90 mcg/actuation HFA aerosol inhaler 2 inh INHALATION Q4H PRN (Reason: shortness of breath or wheezing) Qty: 18 0RF No Action rosuvastatin 40 mg tablet 40 mg PO DAILY@20 (DME) Diabetic Shoes See Rx Instructions .Route .MEDSUPPLY Qty: 1 0RF Rx Instructions: As directed albuterol sulfate 90 mcg/actuation HFA aerosol inhaler 1 puff INHALATION Q6H PRN (Reason: Shortness Of Breath) Qty: 8.5 3RF Cough Drops See Rx Instructions .ROUTE .COMPLEX Rx Instructions: may keep at bedside ondansetron 4 mg tablet,disintegrating 4 mg PO Q6H PRN (Reason: nausea and vomiting) Qty: 14 0RF mirabegron [Myrbetriq] 25 mg tablet extended release 24 hr 25 mg PO DAILY@0700 promethazine-DM 6.25-15 mg/5 mL Syrup 5 ml PO Q6H PRN (Reason: Cough) fluoride (sodium) [SF 5000 Plus] 1.1 % Cream See Rx Instructions .ROUTE .COMPLEX Rx Instructions: [place] on teeth twice daily with use of regular tooth paste do not eat or drink 30 mins after (use at 07:00 & 20:00) aspirin 81 mg tablet,delayed release (DR/EC) 81 mg PO DAILY@07 loperamide 2 mg Tablet 2 mg PO QID PRN (Reason: Diarrhea) pantoprazole 40 mg tablet,delayed release (DR/EC) 40 mg PO DAILY@07 Debrox 6.5 % Drops 10 drp otic (ear) Q30D Rx Instructions: ON THE OF EACH MONTH. roflumilast [Daliresp] 500 mcg tablet 500 mcg PO DAILY@0700 Trelegy Ellipta 100-62.5-25 mcg blister with device 1 inh inhalation DAILY@07 acetaminophen [Tylenol Extra Strength] 500 mg Tablet 500 mg PO Q6H PRN (Reason: Pain) magnesium hydroxide [Milk of Magnesia] 400 mg/5 mL Suspension 30 ml PO DAILY PRN (Reason: Constipation) Rx Instructions: IF NO BM FOR 3 DAYS gabapentin 300 mg capsule 600 mg PO BID@0700,2000 bisacodyl [Dulcolax (bisacodyl)] 5 mg Tablet,Delayed Release (Dr/Ec) 10 mg PO DAILY PRN (Reason: Constipation) melatonin 5 mg Tablet 5 mg PO BEDTIME@2000 venlafaxine 75 mg Capsule,Extended Release 24hr 75 mg PO DAILY@0700 Saline Nasal 0.65 % Aerosol,[place] See Rx Instructions .ROUTE .COMPLEX Rx Instructions: SQUEEZE INTO DRY NOSTRILS TWICE DAILY THEN FOLLOW WITH BACTROBAN. USE AT 0700 AND 1999 levetiracetam 500 mg tablet See Rx Instructions .ROUTE .COMPLEX Rx Instructions: TAKE 500 MG BY MOUTH IN THE MORNING AND 1,000 MG IN THE PM nystatin 100,000 unit/gram powder 1 applic topical BID PRN (Reason: Skin Irritation) Ozempic 1 mg/dose (4 mg/3 mL) pen injector 1 mg SUBCUT Q7D Rx Instructions: MONDAYS terbinafine HCl 1 % cream See Rx Instructions .ROUTE .COMPLEX Rx Instructions: APPLY TO THE AFFECTED AREA(S) WASH AND TOWEL DRY AFFECTED AREA TWICE PER DAY UNTIL HEALED. hydrocortisone 1 % Cream 1 applic TOPICAL TID PRN (Reason: Skin Irritation) triamcinolone acetonide 0.1 % ointment 1 applic TOPICAL BID fluticasone propionate 50 mcg/actuation spray,suspension 1 spray INTRANASAL QAM hydroxyzine pamoate 25 mg capsule 25 mg PO Q8H PRN (Reason: Anxiety) Acidophilus Probiotic Blend 175 mg Capsule 1 cap PO QPM Preparation H 0.25-14-74.9 % Ointment 1 applic VT TID PRN (Reason: PAIN OR ITCHING) ammonium lactate 12 % cream 1 applic topical BEDTIME tramadol 50 mg tablet 50 mg PO Q8H PRN (Reason: pain) 3 Days Qty: 9 0RF prednisone 10 mg tablet 10 mg PO DIRECTED Qty: 60 0RF Rx Instructions: see taper instructions benzonatate 200 mg capsule 200 mg PO TID PRN (Reason: cough) Qty: 20 0RF bumetanide 0.5 mg tablet 0.5 mg PO DAILY@07 ipratropium-albuterol 0.5 mg-3 mg(2.5 mg base)/3 mL Solution For Nebulization 3 ml INHALATION Q4H PRN (Reason: Shortness Of Breath) carboxymethylcellulose sodium [Refresh Tears] 0.5 % Drops 1 - 2 drp ophthalmic (eye) QID PRN (Reason: Dry Eye(S)) clotrimazole 1 % Cream See Rx Instructions .ROUTE .COMPLEX Rx Instructions: apply topically to scales in right foot (toes) at bedtime. cholecalciferol (vitamin D3) [Vitamin D3] 50 mcg (2,000 unit) Capsule 50 mcg PO DAILY@07 Jardiance 25 mg Tablet 25 mg PO DAILY@07 lidocaine 5 % Adhesive Patch,Medicated 1 patch TOPICAL DAILY PRN (Reason: Pain) Rx Instructions: leave on most painful area for up to 12 hrs then off for 12 hours PreserVision AREDS 14,320-226-200 npgp-ql-eyyt capsule 1 cap PO BID@07,19 insulin degludec [Tresiba FlexTouch U-100] 100 unit/mL (3 mL) Insulin Pen 10 unit SUBCUT BEDTIME Discharge Orders: Discharge ED (Routine); Ordered 03/22/24 Ordered By: Eligio Yi Referrals: Tashi Acosta MD [Primary Care Provider] - Discharge Diet: Usual diet Discharge Activity: Increase activity as tolerated Patient Instructions: COVID-19 (Coronavirus Disease 2019) (ED), Opioid Safety, Pain Management Activity Restrictions/Additional Instructions: Thank you for choosing [facility] for your healthcare needs today. It is very important that you follow up as instructed or that you return to the Emergency Department should you have concerns or if your condition changes or worsens in any way. Coding Level of Care Code ED Head Gauge Unit Operator for Kanchan Abdi
[2024-03-22 13:36] LABS: Basophils % 0.5 %; Eosinophils # 0.3 10^3/uL (0.0-0.8); Eosinophils % 5.8 %; Hematocrit 45.6 % (36-47); Lymphocytes # 1.2 10^3/uL (0.8-4.8); Lymphocytes % 19.9 %; Mean Corpuscular HGB Conc 30.9 g/dL (30-55); Mean Corpuscular Hemoglobin 26.6 pg (27-33); Mean Platelet Volume 10.9 fL (7.4-10.4); Monocytes # 0.7 10^3/uL (0.2-0.9); Monocytes % 11.9 %; Neutrophils # 3.58 10^3/uL (1.8-7.7); Neutrophils % 61.6 %; Nucleated Red Blood Cells % 0 %; Platelet Count 156 10^3/cmm (157-399); Red Cell Distribution Width 15.2 % (12.1-15.1); White Blood Count 5.82 10^3/uL (3.29-11.43)
--- NOTE | 2024-03-22 13:48 | ECG_ITS ---
[facility]: 2024-[facility]22 Pat Name: Yaquelin Loera Department: Room: Gender: Female Supervisor Boarding: : 1955 Requested By: Eligio Andrews Order Number: [id number] José MD: Jay Adler M.D. Measurements Intervals [place] Rate: 87 P: 41 WV: 170 QRS: 92 QRSD: 93 T: 65 QT: 381 QTc: 460 Interpretive Statements SINUS RHYTHM BORDERLINE RIGHT AXIS DEVIATION [QRS AXIS > 90] POSSIBLE ANTERIOR MYOCARDIAL INFARCTION , OF INDETERMINATE AGE [30 ms Q WAVE IN V3/V4, OR R < 0.2 mV IN V4] Compared to ECG 12/14/2023 22:23:36 Myocardial infarct finding now present Intraventricular conduction delay no longer present Electronically Signed On 03-22-2024 21:32:19 SYSTEMS OPERATOR by Jay Adler M.D. [email or web address]
[2024-03-22 13:53] LABS: Alanine Aminotransferase 11 U/L (0-33); Albumin Level 4.2 g/dL (3.5-5.2); Alkaline Phosphatase 100 U/L (35-105); Anion Gap 16.1 (5-19); Aspartate Amino Transferase 22 U/L (0-32); Blood Urea Nitrogen 14 mg/dL (8-23); Calcium 8.8 mg/dL (8.5-10.5); Carbon Dioxide 29 mmol/L (22-29); Chloride 96 mmol/L (98-107); Creatinine Clr Calc Pharmacy 84.3402; Globulin 2.9 g/dL (1.3-4.6); Glomerular Filtration Rate 70.9 mL/min (90-130); Glucose 168 mg/dL (65-115); Osmolality Calculated 288 mOsm/kg (285-295); Potassium 4.1 mmol/L (3.5-5.1); Sodium 137 mmol/L (136-145); Total Bilirubin 0.3 mg/dL (0.15-1.2); Total Protein 7.1 g/dL (6.6-8.7)
[2024-03-22 13:58] LABS: Influenza A NEGATIVE (Negative); Influenza B NEGATIVE (Negative); Respiratory Syncytial Virus Ce NEGATIVE (Negative)
[2024-03-22 14:00] LABS: Covid PCR Positive (Negative)
[2024-03-22 15:46] VITALS: BP 122/76; PULSE 82; RESP 20; O2SAT 92
== END 2024-03-22 15:52 | disposition home or self-care (01) ==
PROVIDERS: Emergency Provider Family Medicine; PCP Family Medicine
DX: U07.1 COVID-19 (principal)
CPT/HCPCS: 36415; 71045; 80053; 85025; 87637; 93005; 99285

== ENCOUNTER 2024-04-22 14:53 | Emergency (ER) | payer MEDICARE, MEDICAID, SELFPAY ==
--- NOTE | 2024-04-22 14:58 | XRR_ITS ---
PROCEDURE INFORMATION: Exam: XR Chest Exam date and time: 04/22/2024 3:19 PM Age: 69 years old Clinical indication: Shortness of breath; Additional info: SOB TECHNIQUE: Imaging protocol: Radiologic exam of the chest. Views: 1 view. COMPARISON: CR (CHEST, ) 03/22/2024 1:35 PM FINDINGS: Tubes, catheters and devices: None. Lungs: Moderate degree bilateral perihilar and basilar interstitial alveolar pulmonary edema versus infiltrates, pneumonia within the lungs. The pulmonary opacities are most prominent within the lower left lung. Pleural spaces: No pleural effusion. No pneumothorax. Heart/Mediastinum: Cardiac silhouette appears mildly enlarged. Bones/joints: Diffusely decreased bone density. Generalized bony degenerative changes. Soft tissues: This study is limited by patient's body habitus. XR/XR chest 1V portable 30013 IMPRESSION: 1. Mild enlarged cardiac silhouette. 2. Moderate pulmonary edema versus infiltrates, pneumonia.
[2024-04-22 15:00] VITALS: BP 102/69; PULSE 84; TEMP 36.7; O2SAT 91
--- NOTE | 2024-04-22 15:05 | ECG_ITS ---
[facility] [place] [facility] Date: 2024-04-22 Pat Name: Yaquelin Loera Department: Room: Gender: Female Senior Clinical Data Analyst: : 1955 Requested By: Devorah Agee Order Number: [id number] José MD: Eliezer Mills M.D. Measurements Intervals [place] Rate: 82 P: 36 MD: 187 QRS: 73 QRSD: 97 T: 67 QT: 411 QTc: 481 Interpretive Statements SINUS RHYTHM POSSIBLE ANTERIOR MYOCARDIAL INFARCTION , OF INDETERMINATE AGE [30 ms Q WAVE IN V3/V4, OR R < 0.2 mV IN V4] Compared to ECG 03/22/2024 13:33:41 No significant changes Electronically Signed On 04-24-2024 22:02:39 MECHANICAL PRESS OPERATOR by Eliezer Mills M.D. [email or web address]
[2024-04-22 16:02] LABS: Basophils % 0.5 %; Eosinophils # 0.3 10^3/uL (0.0-0.8); Eosinophils % 5.7 %; Hematocrit 48.3 % (36-47); Lymphocytes # 0.9 10^3/uL (0.8-4.8); Mean Corpuscular HGB Conc 29.6 g/dL (30-55); Mean Corpuscular Hemoglobin 26.9 pg (27-33); Mean Corpuscular Volume 90.8 fl (85-98); Mean Platelet Volume 11.2 fL (7.4-10.4); Monocytes # 0.5 10^3/uL (0.2-0.9); Monocytes % 8.2 %; Neutrophils # 4.03 10^3/uL (1.8-7.7); Neutrophils % 69.3 %; Nucleated Red Blood Cells % 0 %; Platelet Count 140 10^3/cmm (157-399); Red Blood Count 5.32 10^6/uL (3.85-5.65); Red Cell Distribution Width 14.7 % (12.1-15.1); White Blood Count 5.82 10^3/uL (3.29-11.43)
--- NOTE | 2024-04-22 16:05 | W.ED.URI ---
HPI - URI/Sore Throat General: Chief Complaint: Upper Respiratory Infection Stated Complaint: SOB Time Seen by Provider: 04/22/24 16:00 Source: patient Mode of arrival: ambulatory Limitations: no limitations History of Present Illness: 69-year-old female who is here from [facility] states she has had cough congestion slight dyspnea over the last 2 days. She states she has had multiple sick contacts at lamp light. She denies any vomiting or diarrhea denies any worse improving factors. Associated symptoms: Deny abdominal pain, chills, chest pain, diarrhea, fever(s), headache(s), nausea or vomiting Related Data Home Medications ?Medication ?Instructions ?Recorded ?Confirmed acetaminophen 500 mg tablet 500 mg PO Q6H PRN Pain 05/16/19 04/22/24 (Tylenol Extra Strength) bisacodyl 5 mg tablet,delayed 10 mg PO DAILY PRN Constipation 05/16/19 04/22/24 release (Dulcolax (bisacodyl)) carbamide peroxide 6.5 % ear drops 10 drp otic (ear) Q30D 05/16/19 04/22/24 (Debrox) fluticasone fur. 100 mcg-umeclid 1 inh inhalation DAILY@05/16/19 04/22/24 62.5 mcg-vilant 25 mcg inhalat.powder (Trelegy Ellipta) gabapentin 300 mg capsule 300 mg PO BID@0700,199905/16/19 04/22/24 magnesium hydroxide 400 mg/5 mL 30 ml PO DAILY PRN Constipation 05/16/19 04/22/24 oral suspension (Milk of Magnesia) melatonin 5 mg tablet 5 mg PO BEDTIME@199905/16/19 04/22/24 roflumilast 500 mcg tablet 500 mcg PO DAILY@69905/16/19 04/22/24 (Daliresp) sodium chloride 0.65 % nasal spray See Rx Instructions .Route .COMPLEX 05/31/19 04/22/24 aerosol (Saline Nasal) venlafaxine 75 mg capsule,extended 75 mg PO DAILY@0705/31/19 04/22/24 release 24 hr levetiracetam 500 mg tablet See Rx Instructions .Route .COMPLEX 06/03/19 04/22/24 mirabegron 25 mg tablet,extended 25 mg PO DAILY@0700 10/28/20 04/22/24 release 24 hr (Myrbetriq) promethazine-DM 6.25 mg-15 mg/5 mL 5 ml PO Q6H PRN Cough 10/28/20 04/22/24 oral syrup aspirin 81 mg tablet,delayed 81 mg PO DAILY@12/09/20 04/22/24 release fluoride (sodium) 1.1 % dental See Rx Instructions .Route .COMPLEX 12/09/20 04/22/24 cream (SF 5000 Plus) loperamide 2 mg tablet 2 mg PO QID PRN Diarrhea 12/09/20 04/22/24 pantoprazole 40 mg tablet,delayed 40 mg PO DAILY@12/09/20 04/22/24 release rosuvastatin 40 mg tablet 40 mg PO DAILY@09/08/21 04/22/24 bumetanide 0.5 mg tablet 0.5 mg PO DAILY@01/05/22 04/22/24 carboxymethylcellulose sodium 0.5 1 - 2 drp ophthalmic (eye) QID PRN 01/05/22 04/22/24 % eye drops (Refresh Tears) Dry Eye(S) clotrimazole 1 % topical cream See Rx Instructions .Route .COMPLEX 01/05/22 04/22/24 ipratropium 0.5 mg-albuterol 3 mg 3 ml inhalation Q4H PRN Shortness 01/05/22 04/22/24 (2.5 mg base)/3 mL nebulization Of Breath soln cholecalciferol (vitamin D3) 50 50 mcg PO DAILY@07/09/22 04/22/24 mcg (2,000 unit) capsule (Vitamin D3) empagliflozin 25 mg tablet 25 mg PO DAILY@07/09/22 04/22/24 (Jardiance) insulin degludec 100 unit/mL (3 10 unit SUBCUT BEDTIME 07/09/22 04/22/24 mL) subcutaneous pen (Tresiba FlexTouch U-100 insulin) lidocaine 5 % topical patch 1 patch topical DAILY PRN Pain 07/09/22 04/22/24 vitamins A,C,H-onnh-evyzed 4,296 1 cap PO BID@07,19 07/09/22 04/22/24 mcg-226 mg-90 mg capsule (PreserVision AREDS) nystatin 100,000 unit/gram topical 1 applic topical BID PRN Skin 01/21/23 04/22/24 powder Irritation semaglutide 1 mg/dose (4 mg/3 mL) 1 mg SUBCUT Q7D 01/21/23 04/22/24 subcutaneous pen injector (Ozempic) L.acidophil,salivari-Bifido 1 cap PO QPM 09/20/23 04/22/24 bifidum-Strep thermoph 175 mg capsule (Acidophilus Probiotic Blend) ammonium lactate 12 % topical cream 1 applic topical BEDTIME 09/20/23 04/22/24 fluticasone propionate 50 1 spray intranasal QAM 09/20/23 04/22/24 mcg/actuation nasal spray,suspension hydrocortisone 1 % topical cream 1 applic topical TID PRN Skin 09/20/23 04/22/24 Irritation hydroxyzine pamoate 25 mg capsule 25 mg PO Q8H PRN Anxiety 09/20/23 04/22/24 camphor-menthol 0.2 %-3.5 % 1 applic topical BID PRN Muscle 04/22/24 04/22/24 topical gel Pain ibuprofen 200 mg tablet 24,000 mg PO Q6H PRN Pain 04/22/24 04/22/24 insulin lispro 100 unit/mL See Rx Instructions .Route .COMPLEX 04/22/24 04/22/24 subcutaneous pen (Humalog KwikPen (U-100) Insulin) menthol 3.2 mg lozenges (Howell 3.2 mg mucous membrane Q2H PRN 04/22/24 04/22/24 Cough Drops) Cough miconazole nitrate 2 % topical 1 applic topical BID 04/22/24 04/22/24 cream psyllium seed (sugar) oral powder 1 tbsp PO BID 04/22/24 04/22/24 Previous Rx's ?Medication ?Instructions ?Recorded ondansetron 4 mg disintegrating 4 mg PO Q6H PRN nausea and 01/30/20 tablet vomiting #14 tabs Diabetic Shoes #1 ea 11/03/21 albuterol sulfate 90 mcg/actuation 2 inh inhalation Q4H PRN shortness 03/22/24 aerosol inhaler of breath or wheezing #18 grams doxycycline hyclate 100 mg tablet 100 mg PO BID 7 days #14 tabs 04/22/24 Allergies Allergy/AdvReac Type Severity Reaction Status Date / Time metformin Allergy ADR-Dry Verified 04/22/24 15:13 Mucus Membranes Penicillins Allergy ALGY-Anaphy Verified 04/22/24 15:13 laxis Sulfa (Sulfonamide Allergy ALGY-Anaphy Verified 04/22/24 15:13 Antibiotics) laxis Review of Systems Const: Denies: fever(s), chills, body aches or change in appetite ENMT: Denies: throat pain or dental pain Card: Denies: chest pain Resp: Reports: dyspnea and productive cough GI: Denies: abdominal pain, nausea, vomiting or diarrhea Musc: Denies: neck pain or back pain Skin/Breast: Denies: rash Neuro: Denies: headache(s) PFSH ED PFSH: Medical History Acute exacerbation of chronic obstructive airways disease T12 vertebral fracture Small bowel obstruction Benign essential hypertension with target blood pressure below 140/90 Restrictive lung disease Chronic respiratory failure with hypoxia and hypercapnia Sleep apnea Obesity hypoventilation syndrome Acute on chronic diastolic (congestive) heart failure Nonischemic cardiomyopathy Moderate to severe mitral regurgitation Depression Seizure disorder Hyperlipidemia Type 2 diabetes mellitus Hypertension Obstructive sleep apnea Tricuspid regurgitation Obesity COPD (chronic obstructive pulmonary disease) Diastolic congestive heart failure Pulmonary hypertension Surgical History Ulnar nerve compression History of H/O mitral valve replacement Family History Brother CAD (coronary artery disease) Sister CAD (coronary artery disease) Grandmother Diabetes Mother Stroke Denies family history of Clotting disorder Dementia Chronic kidney disease (CKD) Suicide Anesthesia complication Bleeding disorder Lung disease Cancer Social History Smoking and tobacco/nicotine status: never used tobacco/nicotine Second hand smoke exposure: Yes Alcohol intake: never Substance/Drug Use: never Caregiver/support person: Yes Lives independently: No Housing: Assisted Living Facility Marital status: / Current occupational status: retired and disabled Do you think of yourself as: Straight/Heterosexual Current gender identity: Female Physical Exam Const: COMMON NORMALS: no acute distress, patient oriented x3 and healthy appearing HENMT: COMMON NORMALS: normocephalic and atraumatic HEAD & SCALP: normocephalic and atraumatic Eye: COMMON NORMALS: Equal, round and reactive pupils present and EOMs intact bilaterally PUPIL: Yes Equal, round and reactive pupils present Neck/C-Spine: COMMON NORMALS: full ROM and supple Chest: COMMONS NORMALS: normal inspection of the chest and normal palpation of entire chest wall Resp: COMMON NORMALS: normal respiratory effort, No retractions, No use of accessory muscles and clear to auscultation bilaterally AUSCULTATION: clear to auscultation bilaterally Cardio: COMMON NORMALS: regular rate, regular rhythm and No murmurs present (Cardio) RATE: regular rate RHYTHM: regular rhythm GI: COMMON NORMALS: Normal to inspection, nondistended, normoactive bowel sounds present, Soft to palpation, non-tender and no masses PALPATION: Yes Soft to palpation Extremity: COMMON NORMALS: normal to inspection and full ROM Neuro: COMMON NORMALS: patient oriented x3, moves all extremities and no focal motor deficits Psych: COMMON NORMALS: mental status grossly normal, Normal thought process present and cooperative THOUGHT PROCESS: Normal thought process present Skin: COMMON NORMALS: no rashes or lesions noted and no wounds GENERAL SKIN EXAM: no rashes or lesions noted Course Vital Signs: Vital signs: Vital Signs Temperature 98.1 F 04/22/24 15:00 Pulse Rate 81 04/22/24 17:01 Respiratory Rate 16 04/22/24 17:01 Blood Pressure 105/60 04/22/24 17:01 Pulse Oximetry 97 04/22/24 17:01 Oxygen Delivery Me thod Room Air 04/22/24 15:00 MDM - URI/Sore Throat Medical Decision Making Patient presents for cough congestion possible pneumonia she is in no distress here we will start her on antibiotics she stable for discharge follow-up PCP return if worsening. Medical Records I reviewed the patient's medical records. Lab Data I reviewed the patient's lab results. 04/22/24 15:36 04/22/24 15:36 Radiology Impressions Chest X-Ray 04/22/24 14:58 IMPRESSION: 1. Mild enlarged cardiac silhouette. 2. Moderate pulmonary edema versus infiltrates, pneumonia. Laboratory Results WBC 5.82 10^3/uL (3.29-11.43) 04/22/24 15:36 RBC 5.32 10^6/uL (3.85-5.65) 04/22/24 15:36 Hgb 14.30 g/dL (11.27-16.99) 04/22/24 15:36 Hct 48.3 % (36-47) H 04/22/24 15:36 MCV 90.8 fl (85-98) 04/22/24 15:36 MCH 26.9 pg (27-33) L 04/22/24 15:36 MCHC 29.6 g/dL (30-55) L 04/22/24 15:36 RDW 14.7 % (12.1-15.1) 04/22/24 15:36 Plt Count 140 10^3/cmm (157-399) L 04/22/24 15:36 MPV 11.2 fL (7.4-10.4) H 04/22/24 15:36 Neut % (Auto) 69.3 % 04/22/24 15:36 Lymph % (Auto) 16.0 % 04/22/24 15:36 Andrew % (Auto) 8.2 % 04/22/24 15:36 Eos % (Auto) 5.7 % 04/22/24 15:36 Baso % (Auto) 0.5 % 04/22/24 15:36 Neut # (Auto) 4.03 10^3/uL (1.8-7.7) 04/22/24 15:36 Lymph # (Auto) 0.9 10^3/uL (0.8-4.8) 04/22/24 15:36 Andrew # (Auto) 0.5 10^3/uL (0.2-0.9) 04/22/24 15:36 Eos # (Auto) 0.3 10^3/uL (0.0-0.8) 04/22/24 15:36 Baso # (Auto) 0.0 10^3/uL (0.0-0.1) 04/22/24 15:36 Nucleated RBC % (auto) 0 % 04/22/24 15:36 Nucleated RBCs # 0.0 /100WBC 04/22/24 15:36 Sodium 138 mmol/L (136-145) 04/22/24 15:36 Potassium 4.3 mmol/L (3.5-5.1) 04/22/24 15:36 Chloride 98 mmol/L (98-107) 04/22/24 15:36 Carbon Dioxide 28 mmol/L (22-29) 04/22/24 15:36 Anion Gap 16.3 (5-19) 04/22/24 15:36 BUN 13 mg/dL (8-23) 04/22/24 15:36 Creatinine 0.9 mg/dL (0.5-0.9) 04/22/24 15:36 GFR Calculation Not Reportable 04/22/24 15:36 Glucose 160 mg/dL (65-115) H 04/22/24 15:36 Calculated Osmolality 290 mOsm/kg (285-295) 04/22/24 15:36 Calcium 9.1 mg/dL (8.5-10.5) 04/22/24 15:36 Total Bilirubin 0.3 mg/dL (0.15-1.2) 04/22/24 15:36 AST 17 U/L (0-32) 04/22/24 15:36 ALT 10 U/L (0-33) 04/22/24 15:36 Alkaline Phosphatase 104 U/L (35-105) 04/22/24 15:36 NT-Pro-B Natriuret Pep 79 pg/mL (0-125) 04/22/24 15:36 Total Protein 7.1 g/dL (6.6-8.7) 04/22/24 15:36 Albumin 4.0 g/dL (3.5-5.2) 04/22/24 15:36 Globulin 3.1 g/dL (1.3-4.6) 04/22/24 15:36 Coronavirus (PCR) Negative (Negative) 04/22/24 16:03 Influenza A (PCR) Negative (Negative) 04/22/24 16:03 Influenza Type B (PCR) Negative (Negative) 04/22/24 16:03 RSV (PCR) Negative (Negative) 04/22/24 16:03 All radiology interpretation(s) finalized by discharge Discharge Plan Discharge Patient Disposition: Home Clinical Impression: Pneumonia Condition: Stable Prescriptions: New doxycycline hyclate 100 mg tablet 100 mg PO BID 7 Days Qty: 14 0RF No Action rosuvastatin 40 mg tablet 40 mg PO DAILY@20 (DME) Diabetic Shoes See Rx Instructions .Route .MEDSUPPLY Qty: 1 0RF Rx Instructions: As directed ondansetron 4 mg tablet,disintegrating 4 mg PO Q6H PRN (Reason: nausea and vomiting) Qty: 14 0RF mirabegron [Myrbetriq] 25 mg tablet extended release 24 hr 25 mg PO DAILY@0700 promethazine-DM 6.25-15 mg/5 mL Syrup 5 ml PO Q6H PRN (Reason: Cough) fluoride (sodium) [SF 5000 Plus] 1.1 % Cream See Rx Instructions .ROUTE .COMPLEX Rx Instructions: [place] on teeth twice daily with use of regular tooth paste do not eat or drink 30 mins after (use at 07:00 & 20:00) aspirin 81 mg tablet,delayed release (DR/EC) 81 mg PO DAILY@07 loperamide 2 mg Tablet 2 mg PO QID PRN (Reason: Diarrhea) pantoprazole 40 mg tablet,delayed release (DR/EC) 40 mg PO DAILY@07 Debrox 6.5 % Drops 10 drp otic (ear) Q30D Rx Instructions: ON THE OF EACH MONTH. roflumilast [Daliresp] 500 mcg tablet 500 mcg PO DAILY@0700 Trelegy Ellipta 100-62.5-25 mcg blister with device 1 inh inhalation DAILY@07 acetaminophen [Tylenol Extra Strength] 500 mg Tablet 500 mg PO Q6H PRN (Reason: Pain) magnesium hydroxide [Milk of Magnesia] 400 mg/5 mL Suspension 30 ml PO DAILY PRN (Reason: Constipation) Rx Instructions: IF NO BM FOR 3 DAYS gabapentin 300 mg capsule 300 mg PO BID@0700,2000 bisacodyl [Dulcolax (bisacodyl)] 5 mg Tablet,Delayed Release (Dr/Ec) 10 mg PO DAILY PRN (Reason: Constipation) melatonin 5 mg Tablet 5 mg PO BEDTIME@2000 venlafaxine 75 mg Capsule,Extended Release 24hr 75 mg PO DAILY@0700 Saline Nasal 0.65 % Aerosol,[place] See Rx Instructions .ROUTE .COMPLEX Rx Instructions: SQUEEZE INTO DRY NOSTRILS TWICE DAILY THEN FOLLOW WITH BACTROBAN. USE AT 0700 AND 2000 levetiracetam 500 mg tablet See Rx Instructions .ROUTE .COMPLEX Rx Instructions: TAKE 500 MG BY MOUTH IN THE MORNING AND 1,000 MG IN THE PM nystatin 100,000 unit/gram powder 1 applic topical BID PRN (Reason: Skin Irritation) Ozempic 1 mg/dose (4 mg/3 mL) pen injector 1 mg SUBCUT Q7D Rx Instructions: MONDAYS hydrocortisone 1 % Cream 1 applic TOPICAL TID PRN (Reason: Skin Irritation) fluticasone propionate 50 mcg/actuation spray,suspension 1 spray INTRANASAL QAM hydroxyzine pamoate 25 mg capsule 25 mg PO Q8H PRN (Reason: Anxiety) L.acidoph,saliva-B.bif-S.therm [Acidophilus Probiotic Blend] 175 mg Capsule 1 cap PO QPM ammonium lactate 12 % cream 1 applic topical BEDTIME albuterol sulfate 90 mcg/actuation HFA aerosol inhaler 2 inh INHALATION Q4H PRN (Reason: shortness of breath or wheezing) Qty: 18 0RF insulin lispro [Humalog KwikPen Insulin] 100 unit/mL Insulin Pen See Rx Instructions .ROUTE .COMPLEX Rx Instructions: inject subq per sliding scale as follows: bs 201-250=2 units, 251-300=4 units, 301-350=6 units, 351-400=8 units. Max dose 24 units daily miconazole nitrate 2 % Cream 1 applic TOPICAL BID ibuprofen 200 mg Tablet 24,000 mg PO Q6H PRN (Reason: Pain) Natural Fiber Powder 1 tbsp PO BID Howell Cough Drops 3.2 mg Lozenge 3.2 mg MUCOUS MEMBRANE Q2H PRN (Reason: Cough) Biofreeze 0.2-3.5 % Gel 1 applic TOPICAL BID PRN (Reason: Muscle Pain) Rx Instructions: rub in gently and completely bumetanide 0.5 mg tablet 0.5 mg PO DAILY@07 ipratropium-albuterol 0.5 mg-3 mg(2.5 mg base)/3 mL Solution For Nebulization 3 ml INHALATION Q4H PRN (Reason: Shortness Of Breath) carboxymethylcellulose sodium [Refresh Tears] 0.5 % Drops 1 - 2 drp ophthalmic (eye) QID PRN (Reason: Dry Eye(S)) clotrimazole 1 % Cream See Rx Instructions .ROUTE .COMPLEX Rx Instructions: Apply topically to scales in right foot (toes) at bedtime. cholecalciferol (vitamin D3) [Vitamin D3] 50 mcg (2,000 unit) Capsule 50 mcg PO DAILY@07 Jardiance 25 mg Tablet 25 mg PO DAILY@07 lidocaine 5 % Adhesive Patch,Medicated 1 patch TOPICAL DAILY PRN (Reason: Pain) Rx Instructions: leave on most painful area for up to 12 hrs then off for 12 hours PreserVision AREDS 14,320-226-200 kfle-sc-ckug capsule 1 cap PO BID@07,19 insulin degludec [Tresiba FlexTouch U-100] 100 unit/mL (3 mL) Insulin Pen 10 unit SUBCUT BEDTIME Discharge Orders: Discharge ED (Routine); Ordered 04/22/24 Ordered By: Devorah Agee Referrals: Tashi Acosta MD [Primary Care Provider] - Discharge Diet: Advance as tolerated Discharge Activity: Resume usual activity Patient Instructions: Pneumonia (ED) Print Language: Korean Coding Level of Care Code ED Doctor Of Audiology for Kanchan Abdi
[2024-04-22 16:06] VITALS: BP 98/54; PULSE 83; RESP 16; O2SAT 93
[2024-04-22 16:35] LABS: Alanine Aminotransferase 10 U/L (0-33); Alkaline Phosphatase 104 U/L (35-105); Anion Gap 16.3 (5-19); Aspartate Amino Transferase 17 U/L (0-32); Blood Urea Nitrogen 13 mg/dL (8-23); Calcium 9.1 mg/dL (8.5-10.5); Carbon Dioxide 28 mmol/L (22-29); Chloride 98 mmol/L (98-107); Creatinine Clr Calc Pharmacy 73.8981; Globulin 3.1 g/dL (1.3-4.6); Glucose 160 mg/dL (65-115); NT Pro B Type Natriuretic Pept 79 pg/mL (0-125); Osmolality Calculated 290 mOsm/kg (285-295); Potassium 4.3 mmol/L (3.5-5.1); Sodium 138 mmol/L (136-145); Total Bilirubin 0.3 mg/dL (0.15-1.2); Total Protein 7.1 g/dL (6.6-8.7)
[2024-04-22 16:52] LABS: Covid PCR NEGATIVE (Negative); Influenza A NEGATIVE (Negative); Influenza B NEGATIVE (Negative); Respiratory Syncytial Virus Ce NEGATIVE (Negative)
[2024-04-22 16:56] VITALS: BP 95/53; PULSE 83; RESP 16; O2SAT 92
[2024-04-22 17:01] VITALS: BP 105/60; PULSE 81; RESP 16; O2SAT 97
[2024-04-22] MEDS: doxycycline 100 mg Tablet PO (17:07)
== END 2024-04-22 17:28 | disposition home or self-care (01) ==
PROVIDERS: Emergency Provider Emergency Medicine; PCP Family Medicine
DX: J18.9 Pneumonia, unspecified organism (principal); Z11.52 Encounter for screening for COVID-19; Z79.82 Long term (current) use of aspirin; Z79.4 Long term (current) use of insulin; J44.9 Chronic obstructive pulmonary disease, unspecified; E11.9 Type 2 diabetes mellitus without complications; I11.0 Hypertensive heart disease with heart failure; I50.30 Unspecified diastolic (congestive) heart failure; E78.5 Hyperlipidemia, unspecified
CPT/HCPCS: 36415; 71045; 80053; 83880; 85025; 87637; 93005; 99285

== ENCOUNTER 2024-05-28 15:46 | Emergency (ER) | payer MEDICARE, MEDICAID, SELFPAY ==
[2024-05-28 15:53] VITALS: BP 90/57; PULSE 100; RESP 18; TEMP 36.7; O2SAT 98
[2024-05-28 18:00] VITALS: BP 138/76; PULSE 95; RESP 20; O2SAT 96
--- NOTE | 2024-05-28 18:00 | XRR_ITS ---
PROCEDURE INFORMATION: Exam: XR Left Hip Exam date and time: 05/28/2024 6:31 PM Age: 69 years old Clinical indication: Injury or trauma; Fall; Other: Left hip pain; Additional info: Fall, left hip pain TECHNIQUE: Imaging protocol: Radiologic exam of the left hip. Views: 2 or 3 views hip with pelvis when performed. COMPARISON: CT abdomen pelvis wo con [id number] 01/21/2023 5:19 PM FINDINGS: Limitations: Suboptimal image quality due to patient body habitus. Bones/joints: No definite acute fracture or dislocation. Soft tissues: Unremarkable. XR/XR hip LT 2-3V wo/w pel* [id number] IMPRESSION: No definite acute osseous findings. CT could be considered for further assessment if warranted.
--- NOTE | 2024-05-28 18:00 | XRR_ITS ---
PROCEDURE INFORMATION: Exam: XR Left Shoulder Exam date and time: 05/28/2024 6:27 PM Age: 69 years old Clinical indication: Injury or trauma; Fall; Other: Pain; Additional info: Fall today, left shoulder pain TECHNIQUE: Imaging protocol: Radiologic exam of the left shoulder. Views: 2 or more views. COMPARISON: CR XR chest 1V portable [id number] 04/22/2024 3:19 PM FINDINGS: Bones/joints: No acute fracture or dislocation. Mild degenerative changes of the acromioclavicular and glenohumeral joints. Ossific density adjacent to the greater tubercle could represent calcific tendinosis. Soft tissues: Normal. XR/XR shoulder LT min 2V* [id number] IMPRESSION: No acute osseous findings.
--- NOTE | 2024-05-28 18:01 | W.ED.FALL ---
HPI - Fall General: Chief Complaint: Fall Stated Complaint: fall Time Seen by Provider: 05/28/24 17:35 Source: patient Mode of arrival: ambulatory Limitations: no limitations History of Present Illness: 69-year-old female is here from [facility] she states she slipped out of her bed last night. She states she landed on her left shoulder and her left hip. States she has had hip pain and shoulder pain since then she rates an 8 out of 10 states she has been able to ambulate but it has been quite painful she denies hitting her head denies any other pain elsewhere Associated symptoms-after fall: Denies abdominal pain, chest pain, headache(s) or neck pain Related Data Home Medications ?Medication ?Instructions ?Recorded ?Confirmed acetaminophen 500 mg tablet 500 mg PO Q6H PRN Pain 05/16/19 04/22/24 (Tylenol Extra Strength) bisacodyl 5 mg tablet,delayed 10 mg PO DAILY PRN Constipation 05/16/19 04/22/24 release (Dulcolax (bisacodyl)) carbamide peroxide 6.5 % ear drops 10 drp otic (ear) Q30D 05/16/19 04/22/24 (Debrox) fluticasone fur. 100 mcg-umeclid 1 inh inhalation DAILY@05/16/19 04/22/24 62.5 mcg-vilant 25 mcg inhalat.powder (Trelegy Ellipta) gabapentin 300 mg capsule 300 mg PO BID@0700,199905/16/19 04/22/24 magnesium hydroxide 400 mg/5 mL 30 ml PO DAILY PRN Constipation 05/16/19 04/22/24 oral suspension (Milk of Magnesia) melatonin 5 mg tablet 5 mg PO BEDTIME@199905/16/19 04/22/24 roflumilast 500 mcg tablet 500 mcg PO DAILY@69905/16/19 04/22/24 (Daliresp) sodium chloride 0.65 % nasal spray See Rx Instructions .Route .COMPLEX 05/31/19 04/22/24 aerosol (Saline Nasal) venlafaxine 75 mg capsule,extended 75 mg PO DAILY@0700 05/31/19 04/22/24 release 24 hr levetiracetam 500 mg tablet See Rx Instructions .Route .COMPLEX 03/17/20 02/04/25 mirabegron 25 mg tablet,extended 25 mg PO DAILY@0700 10/28/20 04/22/24 release 24 hr (Myrbetriq) promethazine-DM 6.25 mg-15 mg/5 mL 5 ml PO Q6H PRN Cough 10/28/20 04/22/24 oral syrup aspirin 81 mg tablet,delayed 81 mg PO DAILY@12/09/20 04/22/24 release fluoride (sodium) 1.1 % dental See Rx Instructions .Route .COMPLEX 12/09/20 04/22/24 cream (SF 5000 Plus) loperamide 2 mg tablet 2 mg PO QID PRN Diarrhea 12/09/20 04/22/24 pantoprazole 40 mg tablet,delayed 40 mg PO DAILY@12/09/20 04/22/24 release rosuvastatin 40 mg tablet 40 mg PO DAILY@09/08/21 04/22/24 bumetanide 0.5 mg tablet 0.5 mg PO DAILY@01/05/22 04/22/24 carboxymethylcellulose sodium 0.5 1 - 2 drp ophthalmic (eye) QID PRN 01/05/22 04/22/24 % eye drops (Refresh Tears) Dry Eye(S) clotrimazole 1 % topical cream See Rx Instructions .Route .COMPLEX 01/05/22 04/22/24 ipratropium 0.5 mg-albuterol 3 mg 3 ml inhalation Q4H PRN Shortness 01/05/22 04/22/24 (2.5 mg base)/3 mL nebulization Of Breath soln cholecalciferol (vitamin D3) 50 50 mcg PO DAILY@07/09/22 04/22/24 mcg (2,000 unit) capsule (Vitamin D3) empagliflozin 25 mg tablet 25 mg PO DAILY@07/09/22 04/22/24 (Jardiance) insulin degludec 100 unit/mL (3 10 unit SUBCUT BEDTIME 07/09/22 04/22/24 mL) subcutaneous pen (Tresiba FlexTouch U-100 insulin) lidocaine 5 % topical patch 1 patch topical DAILY PRN Pain 07/09/22 04/22/24 vitamins A,C,J-ixur-zxsgjr 4,296 1 cap PO BID@,07/09/22 04/22/24 mcg-226 mg-90 mg capsule (PreserVision AREDS) nystatin 100,000 unit/gram topical 1 applic topical BID PRN Skin 01/21/23 04/22/24 powder Irritation semaglutide 1 mg/dose (4 mg/3 mL) 1 mg SUBCUT Q7D 01/21/23 04/22/24 subcutaneous pen injector (Ozempic) L.acidophil,salivari-Bifido 1 cap PO QPM 09/20/23 04/22/24 bifidum-Strep thermoph 175 mg capsule (Acidophilus Probiotic Blend) ammonium lactate 12 % topical cream 1 applic topical BEDTIME 09/20/23 04/22/24 fluticasone propionate 50 1 spray intranasal QAM 09/20/23 04/22/24 mcg/actuation nasal spray,suspension hydrocortisone 1 % topical cream 1 applic topical TID PRN Skin 09/20/23 04/22/24 Irritation hydroxyzine pamoate 25 mg capsule 25 mg PO Q8H PRN Anxiety 09/20/23 04/22/24 camphor-menthol 0.2 %-3.5 % 1 applic topical BID PRN Muscle 04/22/24 04/22/24 topical gel Pain ibuprofen 200 mg tablet 24,000 mg PO Q6H PRN Pain 04/22/24 04/22/24 insulin lispro 100 unit/mL See Rx Instructions .Route .COMPLEX 04/22/24 04/22/24 subcutaneous pen (Humalog KwikPen (U-100) Insulin) menthol 3.2 mg lozenges ([place] 3.2 mg mucous membrane Q2H PRN 04/22/24 04/22/24 Cough Drops) Cough miconazole nitrate 2 % topical 1 applic topical BID 04/22/24 04/22/24 cream psyllium seed (sugar) oral powder 1 tbsp PO BID 04/22/24 04/22/24 Previous Rx's ?Medication ?Instructions ?Recorded ondansetron 4 mg disintegrating 4 mg PO Q6H PRN nausea and 01/30/20 tablet vomiting #14 tabs Diabetic Shoes #1 ea 11/03/21 albuterol sulfate 90 mcg/actuation 2 inh inhalation Q4H PRN shortness 03/22/24 aerosol inhaler of breath or wheezing #18 grams Allergies Allergy/AdvReac Type Severity Reaction Status Date / Time metformin Allergy ADR-Dry Verified 05/28/24 16:01 Mucus Membranes Penicillins Allergy ALGY-Anaphy Verified 05/28/24 16:01 laxis Sulfa (Sulfonamide Allergy ALGY-Anaphy Verified 05/28/24 16:01 Antibiotics) laxis Review of Systems Const: Denies: fever(s), chills, body aches or change in appetite ENMT: Denies: throat pain or dental pain Card: Denies: chest pain Resp: Denies: dyspnea GI: Denies: abdominal pain, nausea, vomiting or diarrhea Musc: Reports: extremity pain; Denies: neck pain or back pain Skin/Breast: Denies: rash Neuro: Denies: headache(s) PFSH ED PFSH: Medical History Acute exacerbation of chronic obstructive airways disease T12 vertebral fracture Small bowel obstruction Benign essential hypertension with target blood pressure below 140/90 Restrictive lung disease Chronic respiratory failure with hypoxia and hypercapnia Sleep apnea Obesity hypoventilation syndrome Acute on chronic diastolic (congestive) heart failure Nonischemic cardiomyopathy Moderate to severe mitral regurgitation Depression Seizure disorder Hyperlipidemia Type 2 diabetes mellitus Hypertension Obstructive sleep apnea Tricuspid regurgitation Obesity COPD (chronic obstructive pulmonary disease) Diastolic congestive heart failure Pulmonary hypertension Surgical History Ulnar nerve compression History of H/O mitral valve replacement Family History Brother CAD (coronary artery disease) Sister CAD (coronary artery disease) Grandmother Diabetes Mother Stroke Denies family history of Clotting disorder Dementia Chronic kidney disease (CKD) Suicide Anesthesia complication Bleeding disorder Lung disease Cancer Social History Smoking and tobacco/nicotine status: never used tobacco/nicotine Second hand smoke exposure: Yes Alcohol intake: never Substance/Drug Use: never Caregiver/support person: Yes Lives independently: No Housing: Assisted Living Facility Marital status: / Current occupational status: retired and disabled Do you think of yourself as: Straight/Heterosexual Current gender identity: Female Physical Exam Const: COMMON NORMALS: no acute distress, patient oriented x3 and healthy appearing HENMT: COMMON NORMALS: normocephalic and atraumatic HEAD & SCALP: normocephalic and atraumatic Eye: COMMON NORMALS: conjunctivae normal CONJUNCTIVA: Yes conjunctivae normal Neck/C-Spine: COMMON NORMALS: full ROM and supple Chest: COMMONS NORMALS: normal inspection of the chest Resp: COMMON NORMALS: normal respiratory effort, No retractions, No use of accessory muscles and clear to auscultation bilaterally AUSCULTATION: clear to auscultation bilaterally Cardio: COMMON NORMALS: regular rate, regular rhythm and No murmurs present (Cardio) RATE: regular rate RHYTHM: regular rhythm GI: COMMON NORMALS: Normal to inspection, nondistended, normoactive bowel sounds present, Soft to palpation, non-tender and no masses PALPATION: Yes Soft to palpation Extremity: NARRATIVE EXTREMITY EXAM: Tenderness over left hip and left shoulder no obvious deformities Neuro: COMMON NORMALS: patient oriented x3, moves all extremities and no focal motor deficits Psych: COMMON NORMALS: mental status grossly normal, Normal thought process present and cooperative THOUGHT PROCESS: Normal thought process present Skin: COMMON NORMALS: no rashes or lesions noted and no wounds GENERAL SKIN EXAM: no rashes or lesions noted Course Vital Signs: Vital signs: Vital Signs Temperature 98.1 F 05/28/24 15:53 Pulse Rate 95 05/28/24 18:00 Respiratory Rate 20 H 05/28/24 18:00 Blood Pressure 138/76 05/28/24 18:00 Pulse Oximetry 96 05/28/24 18:00 Oxygen Delivery Me thod Room Air 05/28/24 18:00 MDM - Fall Medical Decision Making Patient presents here with left hip contusion from a fall x-rays here are negative she is able ambulate here with no difficulty she stable for discharge follow-up PCP return if worsening. Medical Records I reviewed the patient's medical records. XR interpretation done by ED provider, pending radiology final review ED provider radiology interpretation(s): xr l hip: no fx xr l shoulder: no fx Discharge Plan Discharge Patient Disposition: Home Clinical Impression: Fall, Contusion of left hip Condition: Stable Prescriptions: No Action rosuvastatin 40 mg tablet 40 mg PO DAILY@20 (DME) Diabetic Shoes See Rx Instructions .Route .MEDSUPPLY Qty: 1 0RF Rx Instructions: As directed ondansetron 4 mg tablet,disintegrating 4 mg PO Q6H PRN (Reason: nausea and vomiting) Qty: 14 0RF mirabegron [Myrbetriq] 25 mg tablet extended release 24 hr 25 mg PO DAILY@0700 promethazine-DM 6.25-15 mg/5 mL Syrup 5 ml PO Q6H PRN (Reason: Cough) fluoride (sodium) [SF 5000 Plus] 1.1 % Cream See Rx Instructions .ROUTE .COMPLEX Rx Instructions: [place] on teeth twice daily with use of regular tooth paste do not eat or drink 30 mins after (use at 07:00 & 20:00) aspirin 81 mg tablet,delayed release (DR/EC) 81 mg PO DAILY@07 loperamide 2 mg Tablet 2 mg PO QID PRN (Reason: Diarrhea) pantoprazole 40 mg tablet,delayed release (DR/EC) 40 mg PO DAILY@07 Debrox 6.5 % Drops 10 drp otic (ear) Q30D Rx Instructions: ON THE OF EACH MONTH. roflumilast [Daliresp] 500 mcg tablet 500 mcg PO DAILY@0700 Trelegy Ellipta 100-62.5-25 mcg blister with device 1 inh inhalation DAILY@07 acetaminophen [Tylenol Extra Strength] 500 mg Tablet 500 mg PO Q6H PRN (Reason: Pain) magnesium hydroxide [Milk of Magnesia] 400 mg/5 mL Suspension 30 ml PO DAILY PRN (Reason: Constipation) Rx Instructions: IF NO BM FOR 3 DAYS gabapentin 300 mg capsule 300 mg PO BID@0700,2000 bisacodyl [Dulcolax (bisacodyl)] 5 mg Tablet,Delayed Release (Dr/Ec) 10 mg PO DAILY PRN (Reason: Constipation) melatonin 5 mg Tablet 5 mg PO BEDTIME@2000 venlafaxine 75 mg Capsule,Extended Release 24hr 75 mg PO DAILY@0700 Saline Nasal 0.65 % Aerosol,[place] See Rx Instructions .ROUTE .COMPLEX Rx Instructions: SQUEEZE INTO DRY NOSTRILS TWICE DAILY THEN FOLLOW WITH BACTROBAN. USE AT 0700 AND 2000 levetiracetam 500 mg tablet See Rx Instructions .ROUTE .COMPLEX Rx Instructions: TAKE 500 MG BY MOUTH IN THE MORNING AND 1,000 MG IN THE PM nystatin 100,000 unit/gram powder 1 applic topical BID PRN (Reason: Skin Irritation) Ozempic 1 mg/dose (4 mg/3 mL) pen injector 1 mg SUBCUT Q7D Rx Instructions: MONDAYS hydrocortisone 1 % Cream 1 applic TOPICAL TID PRN (Reason: Skin Irritation) fluticasone propionate 50 mcg/actuation spray,suspension 1 spray INTRANASAL QAM hydroxyzine pamoate 25 mg capsule 25 mg PO Q8H PRN (Reason: Anxiety) L.acidoph,saliva-B.bif-S.therm [Acidophilus Probiotic Blend] 175 mg Capsule 1 cap PO QPM ammonium lactate 12 % cream 1 applic topical BEDTIME albuterol sulfate 90 mcg/actuation HFA aerosol inhaler 2 inh INHALATION Q4H PRN (Reason: shortness of breath or wheezing) Qty: 18 0RF insulin lispro [Humalog KwikPen Insulin] 100 unit/mL Insulin Pen See Rx Instructions .ROUTE .COMPLEX Rx Instructions: inject subq per sliding scale as follows: bs 201-250=2 units, 251-300=4 units, 301-350=6 units, 351-400=8 units. Max dose 24 units daily miconazole nitrate 2 % Cream 1 applic TOPICAL BID ibuprofen 200 mg Tablet 24,000 mg PO Q6H PRN (Reason: Pain) Natural Fiber Powder 1 tbsp PO BID [place] Cough Drops 3.2 mg Lozenge 3.2 mg MUCOUS MEMBRANE Q2H PRN (Reason: Cough) Biofreeze 0.2-3.5 % Gel 1 applic TOPICAL BID PRN (Reason: Muscle Pain) Rx Instructions: rub in gently and completely bumetanide 0.5 mg tablet 0.5 mg PO DAILY@07 ipratropium-albuterol 0.5 mg-3 mg(2.5 mg base)/3 mL Solution For Nebulization 3 ml INHALATION Q4H PRN (Reason: Shortness Of Breath) carboxymethylcellulose sodium [Refresh Tears] 0.5 % Drops 1 - 2 drp ophthalmic (eye) QID PRN (Reason: Dry Eye(S)) clotrimazole 1 % Cream See Rx Instructions .ROUTE .COMPLEX Rx Instructions: Apply topically to scales in right foot (toes) at bedtime. cholecalciferol (vitamin D3) [Vitamin D3] 50 mcg (2,000 unit) Capsule 50 mcg PO DAILY@07 Jardiance 25 mg Tablet 25 mg PO DAILY@07 lidocaine 5 % Adhesive Patch,Medicated 1 patch TOPICAL DAILY PRN (Reason: Pain) Rx Instructions: leave on most painful area for up to 12 hrs then off for 12 hours PreserVision AREDS 14,320-226-200 [id number] capsule 1 cap PO BID@, insulin degludec [Tresiba FlexTouch U-100] 100 unit/mL (3 mL) Insulin Pen 10 unit SUBCUT BEDTIME Discharge Orders: Discharge ED (Routine); Ordered 05/28/24 Ordered By: Devorah Agee Referrals: Tashi Acosta MD [Primary Care Provider] - Discharge Diet: Advance as tolerated Discharge Activity: Resume usual activity Patient Instructions: Contusion in Adults (ED), Fall Prevention (ED) Print Language: Dominican Coding Level of Care Code ED Shutdown Planner for Kanchan Abdi
[2024-05-28] MEDS: HYDROcodone-acetaminophen 5-325 mg Tablet 1 TAB PO (18:48)
--- NOTE | 2024-05-28 19:08 | PC.NURSE ---
PT ambulated in room wihtout any assistance, pt able to get out of bed w/o assistance, pt walked across room without any signs of pain/ pt able to stand while this nurse was changing pants w/o any signs of pain. pt states she uses a walker at home however in the room pt was able to ambulate at times without walker or assistance.
--- NOTE | 2024-05-28 19:12 | PC.NURSE ---
Pt stated she needed to use restroom, this nurse went to get walker to walk pt to bathroom, upon coming back to room pt states I just went ahead and went Pt was up and changed.
[2024-05-28 20:00] VITALS: BP 131/67; PULSE 90; O2SAT 92
== END 2024-05-28 20:01 | disposition home or self-care (01) ==
PROVIDERS: Emergency Provider Emergency Medicine; PCP Family Medicine
DX: S70.02XA Contusion of left hip, initial encounter (principal); M25.512 Pain in left shoulder; Z79.4 Long term (current) use of insulin; J44.9 Chronic obstructive pulmonary disease, unspecified; E11.9 Type 2 diabetes mellitus without complications; I11.0 Hypertensive heart disease with heart failure; I50.33 Acute on chronic diastolic (congestive) heart failure; W06.XXXA Fall from bed, initial encounter
CPT/HCPCS: 73030; 73502; 99284

== ENCOUNTER 2024-06-09 16:14 | Emergency (ER) | payer MEDICARE, MEDICAID, SELFPAY ==
--- NOTE | 2024-06-09 16:21 | XRR_ITS ---
PROCEDURE INFORMATION: Exam: XR Chest Exam date and time: 06/09/2024 4:40 PM Age: 69 years old Clinical indication: Shortness of breath; Additional info: SOB TECHNIQUE: Imaging protocol: Radiologic exam of the chest. Views: 1 view. COMPARISON: CR XR chest 1V portable [id number] 04/22/2024 3:19 PM FINDINGS: Lungs: There is mild pulmonary vascular congestion. There is no focal lung consolidation. Pleural spaces: There are no pleural effusions. Heart/Mediastinum: There is cardiomegaly. Bones/joints: There are mild degenerative changes of the shoulder joints. XR/XR chest 1V portable [id number] IMPRESSION: Findings consistent with mild CHF.
--- NOTE | 2024-06-09 16:21 | ECG_ITS ---
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 Measurements Intervals [place] Rate: 78 P: 60 CA: 186 QRS: 81 QRSD: 93 T: 77 QT: 392 QTc: 447 Interpretive Statements SINUS RHYTHM Compared to ECG 04/22/2024 15:05:31 Myocardial infarct finding no longer present Electronically Signed On 06-09-2024 20:57:42 CDT by Jay Adler M.D. [email or web address]
--- NOTE | 2024-06-09 16:22 | W.ED.SOB ---
HPI - SOB/Dyspnea General: Chief Complaint: Shortness of Breath/Dyspnea Stated Complaint: sob; cough Time Seen by Provider: 06/09/24 16:16 Source: patient Mode of arrival: ambulatory Limitations: no limitations History of Present Illness: HPI Narrative: 69-year-old female is here from [facility], [facility]1983 patient has a history of COPD does wear 2 L of oxygen at baseline has had a slight cough over the last 2 days she denies any fevers had some increased shortness of breath patient's 96% here on her 2 L. She denies any fever denies any pain Associated symptoms: Deny abdominal pain, chest pain, fever(s), nausea or vomiting Related Data Home Medications ?Medication ?Instructions ?Recorded ?Confirmed acetaminophen 500 mg tablet 500 mg PO Q6H PRN Pain 05/16/19 04/22/24 (Tylenol Extra Strength) bisacodyl 5 mg tablet,delayed 10 mg PO DAILY PRN Constipation 05/16/19 04/22/24 release (Dulcolax (bisacodyl)) carbamide peroxide 6.5 % ear drops 10 drp otic (ear) Q30D 05/16/19 04/22/24 (Debrox) fluticasone fur. 100 mcg-umeclid 1 inh inhalation DAILY@05/16/19 04/22/24 62.5 mcg-vilant 25 mcg inhalat.powder (Trelegy Ellipta) gabapentin 300 mg capsule 300 mg PO BID@0700,199905/16/19 04/22/24 magnesium hydroxide 400 mg/5 mL 30 ml PO DAILY PRN Constipation 05/16/19 04/22/24 oral suspension (Milk of Magnesia) melatonin 5 mg tablet 5 mg PO BEDTIME@199905/16/19 04/22/24 roflumilast 500 mcg tablet 500 mcg PO DAILY@0705/16/19 04/22/24 (Daliresp) sodium chloride 0.65 % nasal spray See Rx Instructions .Route .COMPLEX 05/31/19 04/22/24 aerosol (Saline Nasal) venlafaxine 75 mg capsule,extended 75 mg PO DAILY@0700 05/31/19 04/22/24 release 24 hr levetiracetam 500 mg tablet See Rx Instructions .Route .COMPLEX 06/03/19 04/22/24 mirabegron 25 mg tablet,extended 25 mg PO DAILY@0700 10/28/20 04/22/24 release 24 hr (Myrbetriq) promethazine-DM 6.25 mg-15 mg/5 mL 5 ml PO Q6H PRN Cough 10/28/20 04/22/24 oral syrup aspirin 81 mg tablet,delayed 81 mg PO DAILY@12/09/20 04/22/24 release fluoride (sodium) 1.1 % dental See Rx Instructions .Route .COMPLEX 12/09/20 04/22/24 cream (SF 5000 Plus) loperamide 2 mg tablet 2 mg PO QID PRN Diarrhea 12/09/20 04/22/24 pantoprazole 40 mg tablet,delayed 40 mg PO DAILY@12/09/20 04/22/24 release rosuvastatin 40 mg tablet 40 mg PO DAILY@09/08/21 04/22/24 bumetanide 0.5 mg tablet 0.5 mg PO DAILY@01/05/22 04/22/24 carboxymethylcellulose sodium 0.5 1 - 2 drp ophthalmic (eye) QID PRN 01/05/22 04/22/24 % eye drops (Refresh Tears) Dry Eye(S) clotrimazole 1 % topical cream See Rx Instructions .Route .COMPLEX 01/05/22 04/22/24 ipratropium 0.5 mg-albuterol 3 mg 3 ml inhalation Q4H PRN Shortness 01/05/22 04/22/24 (2.5 mg base)/3 mL nebulization Of Breath soln cholecalciferol (vitamin D3) 50 50 mcg PO DAILY@07/09/22 04/22/24 mcg (2,000 unit) capsule (Vitamin D3) empagliflozin 25 mg tablet 25 mg PO DAILY@07/09/22 04/22/24 (Jardiance) insulin degludec 100 unit/mL (3 10 unit SUBCUT BEDTIME 07/09/22 04/22/24 mL) subcutaneous pen (Tresiba FlexTouch U-100 insulin) lidocaine 5 % topical patch 1 patch topical DAILY PRN Pain 07/09/22 04/22/24 vitamins A,C,D-wird-blgheh 4,296 1 cap PO BID@,07/09/22 04/22/24 mcg-226 mg-90 mg capsule (PreserVision AREDS) nystatin 100,000 unit/gram topical 1 applic topical BID PRN Skin 01/21/23 04/22/24 powder Irritation semaglutide 1 mg/dose (4 mg/3 mL) 1 mg SUBCUT Q7D 01/21/23 04/22/24 subcutaneous pen injector (Ozempic) L.acidophil,salivari-Bifido 1 cap PO QPM 09/20/23 04/22/24 bifidum-Strep thermoph 175 mg capsule (Acidophilus Probiotic Blend) ammonium lactate 12 % topical cream 1 applic topical BEDTIME 09/20/23 04/22/24 fluticasone propionate 50 1 spray intranasal QAM 09/20/23 04/22/24 mcg/actuation nasal spray,suspension hydrocortisone 1 % topical cream 1 applic topical TID PRN Skin 09/20/23 04/22/24 Irritation hydroxyzine pamoate 25 mg capsule 25 mg PO Q8H PRN Anxiety 09/20/23 04/22/24 camphor-menthol 0.2 %-3.5 % 1 applic topical BID PRN Muscle 04/22/24 04/22/24 topical gel Pain ibuprofen 200 mg tablet 24,000 mg PO Q6H PRN Pain 04/22/24 04/22/24 insulin lispro 100 unit/mL See Rx Instructions .Route .COMPLEX 04/22/24 04/22/24 subcutaneous pen (Humalog KwikPen (U-100) Insulin) menthol 3.2 mg lozenges ([place] 3.2 mg mucous membrane Q2H PRN 04/22/24 04/22/24 Cough Drops) Cough miconazole nitrate 2 % topical 1 applic topical BID 04/22/24 04/22/24 cream psyllium seed (sugar) oral powder 1 tbsp PO BID 04/22/24 04/22/24 Previous Rx's ?Medication ?Instructions ?Recorded ondansetron 4 mg disintegrating 4 mg PO Q6H PRN nausea and 01/30/20 tablet vomiting #14 tabs Diabetic Shoes #1 ea 11/03/21 albuterol sulfate 90 mcg/actuation 2 inh inhalation Q4H PRN shortness 03/22/24 aerosol inhaler of breath or wheezing #18 grams Allergies Allergy/AdvReac Type Severity Reaction Status Date / Time metformin Allergy ADR-Dry Verified 05/28/24 16:01 Mucus Membranes Penicillins Allergy ALGY-Anaphy Verified 05/28/24 16:01 laxis Sulfa (Sulfonamide Allergy ALGY-Anaphy Verified 05/28/24 16:01 Antibiotics) laxis Review of Systems Const: Denies: fever(s), chills, body aches or change in appetite ENMT: Denies: throat pain or dental pain Card: Denies: chest pain Resp: Reports: dyspnea and non-productive cough GI: Denies: abdominal pain, nausea, vomiting or diarrhea Musc: Denies: neck pain or back pain Skin/Breast: Denies: rash Neuro: Denies: headache(s) PFSH ED PFSH: Medical History Acute exacerbation of chronic obstructive airways disease T12 vertebral fracture Small bowel obstruction Benign essential hypertension with target blood pressure below 140/90 Restrictive lung disease Chronic respiratory failure with hypoxia and hypercapnia Sleep apnea Obesity hypoventilation syndrome Acute on chronic diastolic (congestive) heart failure Nonischemic cardiomyopathy Moderate to severe mitral regurgitation Depression Seizure disorder Hyperlipidemia Type 2 diabetes mellitus Hypertension Obstructive sleep apnea Tricuspid regurgitation Obesity COPD (chronic obstructive pulmonary disease) Diastolic congestive heart failure Pulmonary hypertension Surgical History Ulnar nerve compression History of H/O mitral valve replacement Family History Brother CAD (coronary artery disease) Sister CAD (coronary artery disease) Grandmother Diabetes Mother Stroke Denies family history of Clotting disorder Dementia Chronic kidney disease (CKD) Suicide Anesthesia complication Bleeding disorder Lung disease Cancer Social History Smoking and tobacco/nicotine status: never used tobacco/nicotine Second hand smoke exposure: Yes Alcohol intake: never Substance/Drug Use: never Caregiver/support person: Yes Lives independently: No Housing: Assisted Living Facility Marital status: / Current occupational status: retired and disabled Do you think of yourself as: Straight/Heterosexual Current gender identity: Female Physical Exam Const: COMMON NORMALS: no acute distress, patient oriented x3 and healthy appearing HENMT: COMMON NORMALS: normocephalic and atraumatic HEAD & SCALP: normocephalic and atraumatic Eye: COMMON NORMALS: Equal, round and reactive pupils present and EOMs intact bilaterally PUPIL: Yes Equal, round and reactive pupils present Neck/C-Spine: COMMON NORMALS: full ROM and supple Chest: COMMONS NORMALS: normal inspection of the chest and normal palpation of entire chest wall Resp: COMMON NORMALS: normal respiratory effort, No retractions, No use of accessory muscles and clear to auscultation bilaterally AUSCULTATION: clear to auscultation bilaterally Cardio: COMMON NORMALS: regular rate, regular rhythm and No murmurs present (Cardio) RATE: regular rate RHYTHM: regular rhythm GI: COMMON NORMALS: Normal to inspection, nondistended, normoactive bowel sounds present, Soft to palpation, non-tender and no masses PALPATION: Yes Soft to palpation Extremity: COMMON NORMALS: normal to inspection and full ROM Neuro: COMMON NORMALS: patient oriented x3, moves all extremities and no focal motor deficits Psych: COMMON NORMALS: mental status grossly normal, Normal thought process present and cooperative THOUGHT PROCESS: Normal thought process present Skin: COMMON NORMALS: no rashes or lesions noted and no wounds GENERAL SKIN EXAM: no rashes or lesions noted Course Vital Signs: Vital signs: Vital Signs Temperature 98.4 F 06/09/24 16:24 Pulse Rate 78 06/09/24 16:24 Respiratory Rate 16 06/09/24 16:24 Blood Pressure 121/89 06/09/24 16:24 Pulse Oximetry 96 06/09/24 16:24 Oxygen Delivery Me thod Nasal Cannula 06/09/24 16:24 Oxygen Flow Rate 2 06/09/24 16:24 MDM - SOB/Dyspnea Medical Decision Making Patient presents here with shortness of breath x-ray shows no pneumonia blood works normal she has been well-appearing here she stable for discharge follow-up PCP return if worsening. Medical Records I reviewed the patient's medical records. Lab Data I reviewed the patient's lab results. 06/09/24 16:39 06/09/24 16:39 Labs/Radiology: Laboratory Results WBC 8.71 10^3/uL (3.29-11.43) 06/09/24 16:39 RBC 5.92 10^6/uL (3.85-5.65) H 06/09/24 16:39 Hgb 15.40 g/dL (11.27-16.99) 06/09/24 16:39 Hct 51.8 % (36-47) H 06/09/24 16:39 MCV 87.5 fl (85-98) 06/09/24 16:39 MCH 26.0 pg (27-33) L 06/09/24 16:39 MCHC 29.7 g/dL (30-55) L 06/09/24 16:39 RDW 14.6 % (12.1-15.1) 06/09/24 16:39 Plt Count 169 10^3/cmm (157-399) 06/09/24 16:39 MPV 10.6 fL (7.4-10.4) H 06/09/24 16:39 Neut % (Auto) 65.3 % 06/09/24 16:39 Lymph % (Auto) 24.6 % 06/09/24 16:39 [place] % (Auto) 6.8 % 06/09/24 16:39 Eos % (Auto) 2.6 % 06/09/24 16:39 Baso % (Auto) 0.5 % 06/09/24 16:39 Neut # (Auto) 5.69 10^3/uL (1.8-7.7) 06/09/24 16:39 Lymph # (Auto) 2.1 10^3/uL (0.8-4.8) 06/09/24 16:39 [place] # (Auto) 0.6 10^3/uL (0.2-0.9) 06/09/24 16:39 Eos # (Auto) 0.2 10^3/uL (0.0-0.8) 06/09/24 16:39 Baso # (Auto) 0.0 10^3/uL (0.0-0.1) 06/09/24 16:39 Nucleated RBC % (auto) 0 % 06/09/24 16:39 Nucleated RBCs # 0.0 /100WBC 06/09/24 16:39 Sodium 141 mmol/L (136-145) 06/09/24 16:39 Potassium 4.3 mmol/L (3.5-5.1) 06/09/24 16:39 Chloride 98 mmol/L (98-107) 06/09/24 16:39 Carbon Dioxide 28 mmol/L (22-29) 06/09/24 16:39 Anion Gap 19.3 (5-19) H 06/09/24 16:39 BUN 18 mg/dL (8-23) 06/09/24 16:39 Creatinine 0.8 mg/dL (0.5-0.9) 06/09/24 16:39 GFR Calculation Not Reportable 06/09/24 16:39 Glucose 135 mg/dL (65-115) H 06/09/24 16:39 Calculated Osmolality 296 mOsm/kg (285-295) H 06/09/24 16:39 Calcium 10.5 mg/dL (8.5-10.5) 06/09/24 16:39 Total Bilirubin 0.3 mg/dL (0.15-1.2) 06/09/24 16:39 AST 18 U/L (0-32) 06/09/24 16:39 ALT 11 U/L (0-33) 06/09/24 16:39 Alkaline Phosphatase 91 U/L (35-105) 06/09/24 16:39 NT-Pro-B Natriuret Pep 142 pg/mL (0-125) H 06/09/24 16:39 Total Protein 7.8 g/dL (6.6-8.7) 06/09/24 16:39 Albumin 4.5 g/dL (3.5-5.2) 06/09/24 16:39 Globulin 3.3 g/dL (1.3-4.6) 06/09/24 16:39 Influenza A (PCR) Negative (Negative) 06/09/24 16:39 Influenza Type B (PCR) Negative (Negative) 06/09/24 16:39 RSV (PCR) Negative (Negative) 06/09/24 16:39 SARS-CoV-2 (PCR) Negative (Negative) 06/09/24 16:39 All radiology interpretation(s) finalized by discharge EKG Data EKG 1: I personally reviewed and interpreted this EKG as follows: EKG Interpretation Date: 06/09/24 EKG interpretation time: 16:23 Interpretation: nsr hr [address] elevation qrs 93 qtc 425 Discharge Plan Discharge Patient Disposition: Home Clinical Impression: Shortness of breath Condition: Stable Prescriptions: No Action rosuvastatin 40 mg tablet 40 mg PO DAILY@20 (DME) Diabetic Shoes See Rx Instructions .Route .MEDSUPPLY Qty: 1 0RF Rx Instructions: As directed ondansetron 4 mg tablet,disintegrating 4 mg PO Q6H PRN (Reason: nausea and vomiting) Qty: 14 0RF mirabegron [Myrbetriq] 25 mg tablet extended release 24 hr 25 mg PO DAILY@0700 promethazine-DM 6.25-15 mg/5 mL Syrup 5 ml PO Q6H PRN (Reason: Cough) fluoride (sodium) [SF 5000 Plus] 1.1 % Cream See Rx Instructions .ROUTE .COMPLEX Rx Instructions: [place] on teeth twice daily with use of regular tooth paste do not eat or drink 30 mins after (use at 07:00 & 20:00) aspirin 81 mg tablet,delayed release (DR/EC) 81 mg PO DAILY@07 loperamide 2 mg Tablet 2 mg PO QID PRN (Reason: Diarrhea) pantoprazole 40 mg tablet,delayed release (DR/EC) 40 mg PO DAILY@07 [place]bro[place] 6.5 % Drops 10 drp otic (ear) Q30D Rx Instructions: ON THE OF EACH MONTH. roflumilast [Daliresp] 500 mcg tablet 500 mcg PO DAILY@0700 Trelegy Ellipta 100-62.5-25 mcg blister with device 1 inh inhalation DAILY@07 acetaminophen [Tylenol Extra Strength] 500 mg Tablet 500 mg PO Q6H PRN (Reason: Pain) magnesium hydroxide [Milk of Magnesia] 400 mg/5 mL Suspension 30 ml PO DAILY PRN (Reason: Constipation) Rx Instructions: IF NO BM FOR 3 DAYS gabapentin 300 mg capsule 300 mg PO BID@0700,2000 bisacodyl [Dulcolax (bisacodyl)] 5 mg Tablet,Delayed Release (Dr/Ec) 10 mg PO DAILY PRN (Reason: Constipation) melatonin 5 mg Tablet 5 mg PO BEDTIME@2000 venlafaxine 75 mg Capsule,Extended Release 24hr 75 mg PO DAILY@0700 Saline Nasal 0.65 % Aerosol,[place] See Rx Instructions .ROUTE .COMPLEX Rx Instructions: SQUEEZE INTO DRY NOSTRILS TWICE DAILY THEN FOLLOW WITH BACTROBAN. USE AT 0700 AND 2000 levetiracetam 500 mg tablet See Rx Instructions .ROUTE .COMPLEX Rx Instructions: TAKE 500 MG BY MOUTH IN THE MORNING AND 1,000 MG IN THE PM nystatin 100,000 unit/gram powder 1 applic topical BID PRN (Reason: Skin Irritation) Ozempic 1 mg/dose (4 mg/3 mL) pen injector 1 mg SUBCUT Q7D Rx Instructions: MONDAYS hydrocortisone 1 % Cream 1 applic TOPICAL TID PRN (Reason: Skin Irritation) fluticasone propionate 50 mcg/actuation spray,suspension 1 spray INTRANASAL QAM hydroxyzine pamoate 25 mg capsule 25 mg PO Q8H PRN (Reason: Anxiety) L.acidoph,saliva-B.bif-S.therm [Acidophilus Probiotic Blend] 175 mg Capsule 1 cap PO QPM ammonium lactate 12 % cream 1 applic topical BEDTIME albuterol sulfate 90 mcg/actuation HFA aerosol inhaler 2 inh INHALATION Q4H PRN (Reason: shortness of breath or wheezing) Qty: 18 0RF insulin lispro [Humalog KwikPen Insulin] 100 unit/mL Insulin Pen See Rx Instructions .ROUTE .COMPLEX Rx Instructions: inject subq per sliding scale as follows: bs 201-250=2 units, 251-300=4 units, 301-350=6 units, 351-400=8 units. Max dose 24 units daily miconazole nitrate 2 % Cream 1 applic TOPICAL BID ibuprofen 200 mg Tablet 24,000 mg PO Q6H PRN (Reason: Pain) Natural Fiber Powder 1 tbsp PO BID [place] Cough Drops 3.2 mg Lozenge 3.2 mg MUCOUS MEMBRANE Q2H PRN (Reason: Cough) Biofreeze 0.2-3.5 % Gel 1 applic TOPICAL BID PRN (Reason: Muscle Pain) Rx Instructions: rub in gently and completely bumetanide 0.5 mg tablet 0.5 mg PO DAILY@07 ipratropium-albuterol 0.5 mg-3 mg(2.5 mg base)/3 mL Solution For Nebulization 3 ml INHALATION Q4H PRN (Reason: Shortness Of Breath) carboxymethylcellulose sodium [Refresh Tears] 0.5 % Drops 1 - 2 drp ophthalmic (eye) QID PRN (Reason: Dry Eye(S)) clotrimazole 1 % Cream See Rx Instructions .ROUTE .COMPLEX Rx Instructions: Apply topically to scales in right foot (toes) at bedtime. cholecalciferol (vitamin D3) [Vitamin D3] 50 mcg (2,000 unit) Capsule 50 mcg PO DAILY@07 Jardiance 25 mg Tablet 25 mg PO DAILY@07 lidocaine 5 % Adhesive Patch,Medicated 1 patch TOPICAL DAILY PRN (Reason: Pain) Rx Instructions: leave on most painful area for up to 12 hrs then off for 12 hours PreserVision AREDS 14,320-226-200 [id number] capsule 1 cap PO BID@07,19 insulin degludec [Tresiba FlexTouch U-100] 100 unit/mL (3 mL) Insulin Pen 10 unit SUBCUT BEDTIME Discharge Orders: Discharge ED (Routine); Ordered 06/09/24 Ordered By: Devorah Agee Referrals: Tashi Acosta MD [Primary Care Provider] - Discharge Diet: Advance as tolerated Discharge Activity: Resume usual activity Patient Instructions: Shortness of Breath (ED) Print Language: Kinyarwanda Coding Level of Care Code ED Auto Adjudication Specialist for Kanchan Abdi
[2024-06-09 16:24] VITALS: BP 121/89; PULSE 78; RESP 16; TEMP 36.9; O2SAT 96
[2024-06-09] MEDS: dexamethasone 10 mg/mL INJ IVP (16:42)
[2024-06-09 16:46] LABS: Basophils % 0.5 %; Eosinophils # 0.2 10^3/uL (0.0-0.8); Eosinophils % 2.6 %; Hematocrit 51.8 % (36-47); Lymphocytes # 2.1 10^3/uL (0.8-4.8); Lymphocytes % 24.6 %; Mean Corpuscular HGB Conc 29.7 g/dL (30-55); Mean Corpuscular Volume 87.5 fl (85-98); Mean Platelet Volume 10.6 fL (7.4-10.4); Monocytes # 0.6 10^3/uL (0.2-0.9); Monocytes % 6.8 %; Neutrophils # 5.69 10^3/uL (1.8-7.7); Neutrophils % 65.3 %; Nucleated Red Blood Cells % 0 %; Platelet Count 169 10^3/cmm (157-399); Red Blood Count 5.92 10^6/uL (3.85-5.65); Red Cell Distribution Width 14.6 % (12.1-15.1); White Blood Count 8.71 10^3/uL (3.29-11.43)
[2024-06-09 17:22] LABS: Influenza A NEGATIVE (Negative); Influenza B NEGATIVE (Negative); Respiratory Syncytial Virus Ce NEGATIVE (Negative); SARS-CoV-2 PCR NEGATIVE (Negative)
[2024-06-09 17:26] LABS: Alanine Aminotransferase 11 U/L (0-33); Albumin Level 4.5 g/dL (3.5-5.2); Alkaline Phosphatase 91 U/L (35-105); Aspartate Amino Transferase 18 U/L (0-32); Blood Urea Nitrogen 18 mg/dL (8-23); Calcium 10.5 mg/dL (8.5-10.5); Carbon Dioxide 28 mmol/L (22-29); Chloride 98 mmol/L (98-107); Creatinine Clr Calc Pharmacy 83.1354; Globulin 3.3 g/dL (1.3-4.6); Glucose 135 mg/dL (65-115); NT Pro B Type Natriuretic Pept 142 pg/mL (0-125); Osmolality Calculated 296 mOsm/kg (285-295); Sodium 141 mmol/L (136-145); Total Bilirubin 0.3 mg/dL (0.15-1.2); Total Protein 7.8 g/dL (6.6-8.7)
[2024-06-09 17:28] LABS: Anion Gap 19.3 (5-19); Potassium 4.3 mmol/L (3.5-5.1)
[2024-06-09 17:42] VITALS: BP 151/115; PULSE 82; O2SAT 100
== END 2024-06-09 17:48 | disposition home or self-care (01) ==
PROVIDERS: Emergency Provider Emergency Medicine; PCP Family Medicine
DX: R06.02 Shortness of breath (principal); Z11.52 Encounter for screening for COVID-19; Z79.4 Long term (current) use of insulin; J44.9 Chronic obstructive pulmonary disease, unspecified; E78.5 Hyperlipidemia, unspecified; E11.9 Type 2 diabetes mellitus without complications; I11.0 Hypertensive heart disease with heart failure; I50.30 Unspecified diastolic (congestive) heart failure
CPT/HCPCS: 36415; 71045; 80053; 83880; 85025; 87637; 93005; 96374; 99285; J1100

== ENCOUNTER 2024-08-28 20:05 | Emergency (ER) | payer MEDICARE, MEDICAID, SELFPAY ==
[2024-08-28 20:09] VITALS: BP 116/79; PULSE 79; RESP 18; TEMP 36.4; O2SAT 94
--- NOTE | 2024-08-28 20:23 | XRR_ITS ---
PROCEDURE INFORMATION: Exam: XR Left Elbow Exam date and time: 08/28/2024 8:28 PM Age: 69 years old Clinical indication: Injury or trauma; Fall; Blunt trauma (contusions or hematomas); Elbow; Left; Additional info: Fall today, left elbow and shoulder pain TECHNIQUE: Imaging protocol: Radiologic exam of the left elbow. Views: 3 or more views. COMPARISON: CR (CHEST, ) 08/28/2024 8:25 PM FINDINGS: Bones/joints: Moderate osteoarthritis of the elbow. Soft tissues: Normal. XR/XR elbow LT min 3V* [id number] IMPRESSION: 1. Negative for fracture or dislocation. 2. Moderate osteoarthritis of the elbow.
--- NOTE | 2024-08-28 20:23 | XRR_ITS ---
PROCEDURE INFORMATION: Exam: XR Left Shoulder Exam date and time: 08/28/2024 8:25 PM Age: 69 years old Clinical indication: Injury or trauma; Fall; Blunt trauma (contusions or hematomas); Shoulder; Left; Additional info: Fall today, left elbow and shoulder pain TECHNIQUE: Imaging protocol: Radiologic exam of the left shoulder. Views: 2 or more views. COMPARISON: CR XR chest 1V portable [id number] 06/09/2024 4:40 PM FINDINGS: Bones/joints: Suspected fracture to the glenoid process extending into the scapula, further evaluation with CT advised. Calcific tendinitis. Soft tissues: Normal. XR/XR shoulder LT min 2V* [id number] IMPRESSION: 1. Suspected fracture to the glenoid process extending into the scapula, further evaluation with CT advised. 2. Calcific tendinitis.
--- NOTE | 2024-08-28 20:37 | W.ED.EXTPRO ---
HPI - Extremity Problem General: Chief complaint: Extremity Injury, Upper Stated complaint: Fell Left Arm Time Seen by Provider: 08/28/24 20:17 History of Present Illness: 69-year-old female with a history of morbid obesity, COPD, history of small bowel obstructions, obesity hypoventilation syndrome, diastolic heart failure, nonischemic cardiomyopathy, depression, seizure disorder, hyperlipidemia, type 2 diabetes, hypertension who [facility] after having had a fall. She fell with her walker and landed on her left arm. She is having elbow pain and shoulder pain. No other injury. No head injury. No loss of consciousness. No altered mental status. No chest pain. No abdominal pain. No nausea or vomiting. Related Data Home Medications ?Medication ?Instructions ?Recorded ?Confirmed acetaminophen 500 mg tablet 500 mg PO Q6H PRN Pain 05/16/19 04/22/24 (Tylenol Extra Strength) bisacodyl 5 mg tablet,delayed 10 mg PO DAILY PRN Constipation 05/16/19 04/22/24 release (Dulcolax (bisacodyl)) carbamide peroxide 6.5 % ear drops 10 drp otic (ear) Q30D 05/16/19 04/22/24 (Debrox) fluticasone fur. 100 mcg-umeclid 1 inh inhalation DAILY@05/16/19 04/22/24 62.5 mcg-vilant 25 mcg inhalat.powder (Trelegy Ellipta) gabapentin 300 mg capsule 300 mg PO BID@0700,199905/16/19 04/22/24 magnesium hydroxide 400 mg/5 mL 30 ml PO DAILY PRN Constipation 05/16/19 04/22/24 oral suspension (Milk of Magnesia) melatonin 5 mg tablet 5 mg PO BEDTIME@199905/16/19 04/22/24 roflumilast 500 mcg tablet 500 mcg PO DAILY@69905/16/19 04/22/24 (Daliresp) sodium chloride 0.65 % nasal spray See Rx Instructions .Route .COMPLEX 05/31/19 04/22/24 aerosol (Saline Nasal) venlafaxine 75 mg capsule,extended 75 mg PO DAILY@0700 05/31/19 04/22/24 release 24 hr levetiracetam 500 mg tablet See Rx Instructions .Route .COMPLEX 06/03/19 04/22/24 mirabegron 25 mg tablet,extended 25 mg PO DAILY@0700 10/28/20 04/22/24 release 24 hr (Myrbetriq) promethazine-DM 6.25 mg-15 mg/5 mL 5 ml PO Q6H PRN Cough 10/28/20 04/22/24 oral syrup aspirin 81 mg tablet,delayed 81 mg PO DAILY@12/09/20 04/22/24 release fluoride (sodium) 1.1 % dental See Rx Instructions .Route .COMPLEX 12/09/20 04/22/24 cream (SF 5000 Plus) loperamide 2 mg tablet 2 mg PO QID PRN Diarrhea 12/09/20 04/22/24 pantoprazole 40 mg tablet,delayed 40 mg PO DAILY@12/09/20 04/22/24 release rosuvastatin 40 mg tablet 40 mg PO DAILY@09/08/21 04/22/24 bumetanide 0.5 mg tablet 0.5 mg PO DAILY@01/05/22 04/22/24 carboxymethylcellulose sodium 0.5 1 - 2 drp ophthalmic (eye) QID PRN 01/05/22 04/22/24 % eye drops (Refresh Tears) Dry Eye(S) clotrimazole 1 % topical cream See Rx Instructions .Route .COMPLEX 01/05/22 04/22/24 ipratropium 0.5 mg-albuterol 3 mg 3 ml inhalation Q4H PRN Shortness 01/05/22 04/22/24 (2.5 mg base)/3 mL nebulization Of Breath soln cholecalciferol (vitamin D3) 50 50 mcg PO DAILY@07/09/22 04/22/24 mcg (2,000 unit) capsule (Vitamin D3) empagliflozin 25 mg tablet 25 mg PO DAILY@07/09/22 04/22/24 (Jardiance) insulin degludec 100 unit/mL (3 10 unit SUBCUT BEDTIME 07/09/22 04/22/24 mL) subcutaneous pen (Tresiba FlexTouch U-100 insulin) lidocaine 5 % topical patch 1 patch topical DAILY PRN Pain 07/09/22 04/22/24 vitamins A,C,G-bntn-fgjqdg 4,296 1 cap PO BID@07,19 07/09/22 04/22/24 mcg-226 mg-90 mg capsule (PreserVision AREDS) nystatin 100,000 unit/gram topical 1 applic topical BID PRN Skin 01/21/23 04/22/24 powder Irritation semaglutide 1 mg/dose (4 mg/3 mL) 1 mg SUBCUT Q7D 01/21/23 04/22/24 subcutaneous pen injector (Ozempic) L.acidophil,salivari-Bifido 1 cap PO QPM 09/20/23 04/22/24 bifidum-Strep thermoph 175 mg capsule (Acidophilus Probiotic Blend) ammonium lactate 12 % topical cream 1 applic topical BEDTIME 09/20/23 04/22/24 fluticasone propionate 50 1 spray intranasal QAM 09/20/23 04/22/24 mcg/actuation nasal spray,suspension hydrocortisone 1 % topical cream 1 applic topical TID PRN Skin 09/20/23 04/22/24 Irritation hydroxyzine pamoate 25 mg capsule 25 mg PO Q8H PRN Anxiety 09/20/23 04/22/24 camphor-menthol 0.2 %-3.5 % 1 applic topical BID PRN Muscle 04/22/24 04/22/24 topical gel Pain ibuprofen 200 mg tablet 24,000 mg PO Q6H PRN Pain 04/22/24 04/22/24 insulin lispro 100 unit/mL See Rx Instructions .Route .COMPLEX 04/22/24 04/22/24 subcutaneous pen (Humalog KwikPen (U-100) Insulin) menthol 3.2 mg lozenges ([place] 3.2 mg mucous membrane Q2H PRN 04/22/24 04/22/24 Cough Drops) Cough miconazole nitrate 2 % topical 1 applic topical BID 04/22/24 04/22/24 cream psyllium seed (sugar) oral powder 1 tbsp PO BID 04/22/24 04/22/24 Previous Rx's ?Medication ?Instructions ?Recorded ondansetron 4 mg disintegrating 4 mg PO Q6H PRN nausea and 01/30/20 tablet vomiting #14 tabs Diabetic Shoes #1 ea 11/03/21 albuterol sulfate 90 mcg/actuation 2 inh inhalation Q4H PRN shortness 03/22/24 aerosol inhaler of breath or wheezing #18 grams Allergies Allergy/AdvReac Type Severity Reaction Status Date / Time metformin Allergy ADR-Dry Verified 08/28/24 20:13 Mucus Membranes Penicillins Allergy ALGY-Anaphy Verified 08/28/24 20:13 laxis Sulfa (Sulfonamide Allergy ALGY-Anaphy Verified 08/28/24 20:13 Antibiotics) laxis Review of Systems Narrative: Constitutional symptoms: Negative except as documented in HPI. Skin symptoms: Negative except as documented in HPI. Eye symptoms: Negative except as documented in HPI. ENMT symptoms: Negative except as documented in HPI. Respiratory symptoms: Negative except as documented in HPI. Cardiovascular symptoms: Negative except as documented in HPI. Gastrointestinal symptoms: Negative except as documented in HPI. Genitourinary symptoms: Negative except as documented in HPI. Musculoskeletal symptoms: Negative except as documented in HPI. Neurologic symptoms: Negative except as documented in HPI. Psychiatric symptoms: Negative except as documented in HPI. Endocrine symptoms: Negative except as documented in HPI. PFSH ED PFSH: Medical History Acute exacerbation of chronic obstructive airways disease T12 vertebral fracture Small bowel obstruction Benign essential hypertension with target blood pressure below 140/90 Restrictive lung disease Chronic respiratory failure with hypoxia and hypercapnia Sleep apnea Obesity hypoventilation syndrome Acute on chronic diastolic (congestive) heart failure Nonischemic cardiomyopathy Moderate to severe mitral regurgitation Depression Seizure disorder Hyperlipidemia Type 2 diabetes mellitus Hypertension Obstructive sleep apnea Tricuspid regurgitation Obesity COPD (chronic obstructive pulmonary disease) Diastolic congestive heart failure Pulmonary hypertension Surgical History Ulnar nerve compression History of H/O mitral valve replacement Family History Brother CAD (coronary artery disease) Sister CAD (coronary artery disease) Grandmother Diabetes Mother Stroke Denies family history of Clotting disorder Dementia Chronic kidney disease (CKD) Suicide Anesthesia complication Bleeding disorder Lung disease Cancer Social History Smoking and tobacco/nicotine status: never used tobacco/nicotine Second hand smoke exposure: Yes Alcohol intake: never Substance/Drug Use: never Caregiver/support person: Yes Lives independently: No Housing: Assisted Living Facility Marital status: / Current occupational status: retired and disabled Do you think of yourself as: Straight/Heterosexual Current gender identity: Female Physical Exam Narrative: EXAM NARRATIVE: General: Alert, no acute distress. Skin: warm and dry Head: Normocephalic Neck: Trachea midline Eye: Extraocular movements are intact. Ears, nose, mouth and throat: Oral mucosa moist Respiratory: Respirations are non-labored Musculoskeletal: Normal ROM, no deformity. No swelling. No redness. She states she has some tenderness in both her shoulder and her elbow. Gastrointestinal: Abdomen does not appear distended Neurological: Alert and oriented, No focal neurological deficit observed. Psychiatric: Cooperative, appropriate mood & affect. Course Vital Signs: Vital signs: Vital Signs Temperature 97.5 F L 08/28/24 20:09 Pulse Rate 79 08/28/24 20:09 Respiratory Rate 18 08/28/24 20:09 Blood Pressure 116/79 08/28/24 20:09 Pulse Oximetry 94 08/28/24 20:09 Oxygen Delivery Me thod Room Air 08/28/24 20:09 MDM - Extremity (Nontraumatic) Medical Decision Making Shoulder x-ray: No obvious fractures or dislocations. Films were interpreted by myself the emergency room provider and pending final radiology review. Elbow x-ray: No fat pad. No obvious fractures. No dislocation. Films were interpreted by myself the emergency room provider and pending final radiology review. Assessment and plan: Fall, elbow injury Shoulder injury - Discharged home - Discussed plan with patient. Answered any questions. - Evaluation and treatment of this problem were appropriate in the emergency setting. XR interpretation done by ED provider, pending radiology final review Discharge Plan Discharge Patient Disposition: Home Clinical Impression: Fall, Elbow strain, Shoulder strain Condition: Stable Prescriptions: No Action rosuvastatin 40 mg tablet 40 mg PO DAILY@20 (DME) Diabetic Shoes See Rx Instructions .Route .MEDSUPPLY Qty: 1 0RF Rx Instructions: As directed ondansetron 4 mg tablet,disintegrating 4 mg PO Q6H PRN (Reason: nausea and vomiting) Qty: 14 0RF mirabegron [Myrbetriq] 25 mg tablet extended release 24 hr 25 mg PO DAILY@0700 promethazine-DM 6.25-15 mg/5 mL Syrup 5 ml PO Q6H PRN (Reason: Cough) fluoride (sodium) [SF 5000 Plus] 1.1 % Cream See Rx Instructions .ROUTE .COMPLEX Rx Instructions: [place] on teeth twice daily with use of regular tooth paste do not eat or drink 30 mins after (use at 07:00 & 20:00) aspirin 81 mg tablet,delayed release (DR/EC) 81 mg PO DAILY@07 loperamide 2 mg Tablet 2 mg PO QID PRN (Reason: Diarrhea) pantoprazole 40 mg tablet,delayed release (DR/EC) 40 mg PO DAILY@07 Debrox 6.5 % Drops 10 drp otic (ear) Q30D Rx Instructions: ON THE OF EACH MONTH. roflumilast [Daliresp] 500 mcg tablet 500 mcg PO DAILY@0700 Trelegy Ellipta 100-62.5-25 mcg blister with device 1 inh inhalation DAILY@07 acetaminophen [Tylenol Extra Strength] 500 mg Tablet 500 mg PO Q6H PRN (Reason: Pain) magnesium hydroxide [Milk of Magnesia] 400 mg/5 mL Suspension 30 ml PO DAILY PRN (Reason: Constipation) Rx Instructions: IF NO BM FOR 3 DAYS gabapentin 300 mg capsule 300 mg PO BID@0700,1999 bisacodyl [Dulcolax (bisacodyl)] 5 mg Tablet,Delayed Release (Dr/Ec) 10 mg PO DAILY PRN (Reason: Constipation) melatonin 5 mg Tablet 5 mg PO BEDTIME@2000 venlafaxine 75 mg Capsule,Extended Release 24hr 75 mg PO DAILY@0700 Saline Nasal 0.65 % Aerosol,[place] See Rx Instructions .ROUTE .COMPLEX Rx Instructions: SQUEEZE INTO DRY NOSTRILS TWICE DAILY THEN FOLLOW WITH BACTROBAN. USE AT 0700 AND 2000 levetiracetam 500 mg tablet See Rx Instructions .ROUTE .COMPLEX Rx Instructions: TAKE 500 MG BY MOUTH IN THE MORNING AND 1,000 MG IN THE PM nystatin 100,000 unit/gram powder 1 applic topical BID PRN (Reason: Skin Irritation) Ozempic 1 mg/dose (4 mg/3 mL) pen injector 1 mg SUBCUT Q7D Rx Instructions: MONDAYS hydrocortisone 1 % Cream 1 applic TOPICAL TID PRN (Reason: Skin Irritation) fluticasone propionate 50 mcg/actuation spray,suspension 1 spray INTRANASAL QAM hydroxyzine pamoate 25 mg capsule 25 mg PO Q8H PRN (Reason: Anxiety) Ciaraoph,saliva-B.bif-S.therm [Acidophilus Probiotic Blend] 175 mg Capsule 1 cap PO QPM ammonium lactate 12 % cream 1 applic topical BEDTIME albuterol sulfate 90 mcg/actuation HFA aerosol inhaler 2 inh INHALATION Q4H PRN (Reason: shortness of breath or wheezing) Qty: 18 0RF insulin lispro [Humalog KwikPen Insulin] 100 unit/mL Insulin Pen See Rx Instructions .ROUTE .COMPLEX Rx Instructions: inject subq per sliding scale as follows: bs 201-250=2 units, 251-300=4 units, 301-350=6 units, 351-400=8 units. Max dose 24 units daily miconazole nitrate 2 % Cream 1 applic TOPICAL BID ibuprofen 200 mg Tablet 24,000 mg PO Q6H PRN (Reason: Pain) Natural Fiber Powder 1 tbsp PO BID [place] Cough Drops 3.2 mg Lozenge 3.2 mg MUCOUS MEMBRANE Q2H PRN (Reason: Cough) Biofreeze 0.2-3.5 % Gel 1 applic TOPICAL BID PRN (Reason: Muscle Pain) Rx Instructions: rub in gently and completely bumetanide 0.5 mg tablet 0.5 mg PO DAILY@07 ipratropium-albuterol 0.5 mg-3 mg(2.5 mg base)/3 mL Solution For Nebulization 3 ml INHALATION Q4H PRN (Reason: Shortness Of Breath) carboxymethylcellulose sodium [Refresh Tears] 0.5 % Drops 1 - 2 drp ophthalmic (eye) QID PRN (Reason: Dry Eye(S)) clotrimazole 1 % Cream See Rx Instructions .ROUTE .COMPLEX Rx Instructions: Apply topically to scales in right foot (toes) at bedtime. cholecalciferol (vitamin D3) [Vitamin D3] 50 mcg (2,000 unit) Capsule 50 mcg PO DAILY@07 Jardiance 25 mg Tablet 25 mg PO DAILY@07 lidocaine 5 % Adhesive Patch,Medicated 1 patch TOPICAL DAILY PRN (Reason: Pain) Rx Instructions: leave on most painful area for up to 12 hrs then off for 12 hours PreserVision AREDS 14,320-226-200 mnny-rk-absr capsule 1 cap PO BID@07,19 insulin degludec [Tresiba FlexTouch U-100] 100 unit/mL (3 mL) Insulin Pen 10 unit SUBCUT BEDTIME Discharge Orders: Discharge ED (Routine); Ordered 08/28/24 Ordered By: Kathryn Braxton Referrals: Tashi Acosta MD [Primary Care Provider, Family Practice] Discharge Diet: Usual diet Discharge Activity: Increase activity as tolerated Patient Instructions: Fall Prevention for Older Adults (ED), Opioid Safety, Pain Management Activity Restrictions/Additional Instructions: Thank you for choosing [facility] for your healthcare needs today. You have been screened and evaluated and felt safe for discharge. Health conditions do change or evolve sometimes and as such it is important that you follow up with your Primary Doctor to be re checked, 3-5 days is a general good time frame for follow up. You are always welcome to return to the ED for re assessment if your symptoms are worsening or you have new concerns Print Language: Armenian Coding Level of Care Code ED Cd Reactor Operator for Kanchan Abdi
[2024-08-28 21:04] VITALS: BP 131/82; PULSE 72; RESP 16; O2SAT 95
== END 2024-08-28 21:05 | disposition home or self-care (01) ==
PROVIDERS: Emergency Provider Emergency Medicine; PCP Family Medicine
DX: S46.912A Strain of unspecified muscle, fascia and tendon at shoulder and upper arm level, left arm, initial encounter (principal); S56.912A Strain of unspecified muscles, fascia and tendons at forearm level, left arm, initial encounter; S49.92XA Unspecified injury of left shoulder and upper arm, initial encounter; E66.01 Morbid (severe) obesity due to excess calories; J44.9 Chronic obstructive pulmonary disease, unspecified; I50.32 Chronic diastolic (congestive) heart failure; E78.5 Hyperlipidemia, unspecified; E11.9 Type 2 diabetes mellitus without complications; I11.0 Hypertensive heart disease with heart failure; G47.33 Obstructive sleep apnea (adult) (pediatric); G40.909 Epilepsy, unspecified, not intractable, without status epilepticus; F32.A Depression, unspecified; Z79.899 Other long term (current) drug therapy; Z79.82 Long term (current) use of aspirin; Z79.4 Long term (current) use of insulin; Z79.85 Long-term (current) use of injectable non-insulin antidiabetic drugs; W19.XXXA Unspecified fall, initial encounter
CPT/HCPCS: 73030; 73080; 99283

== ENCOUNTER 2024-08-29 22:42 | Emergency (ER) | payer MEDICARE, MEDICAID, SELFPAY ==
[2024-08-29 22:55] VITALS: BP 132/69; PULSE 77; RESP 19; TEMP 36.4; O2SAT 96; BMI 41.2
[2024-08-29 23:02] VITALS: BP 132/69; PULSE 75; O2SAT 97
--- NOTE | 2024-08-29 23:07 | XRR_ITS ---
PROCEDURE INFORMATION: Exam: XR Pelvis Exam date and time: 08/29/2024 11:16 PM Age: 69 years old Clinical indication: Injury or trauma; Blunt trauma (contusions or hematomas); Prior surgery; Surgery date: 6+ months; Surgery type: Csection; EMS arrival for fall onto concrete. C/O left hip pain. TECHNIQUE: Imaging protocol: Radiologic exam of the pelvis. Views: 1 or 2 view. COMPARISON: CR XR hip LT 2-3V wo/w pel* [id number] 05/28/2024 6:31 PM FINDINGS: Bones/joints: Unremarkable. No acute fracture. Soft tissues: Unremarkable. XR/XR pelvis 1-2V* [id number] IMPRESSION: No acute findings.
--- NOTE | 2024-08-29 23:07 | CTR_ITS ---
PROCEDURE INFORMATION: Exam: CT Cervical Spine Without Contrast Exam date and time: 08/29/2024 11:28 PM Age: 69 years old Clinical indication: Injury or trauma; Blunt trauma; Fall from standing with head strike on concrete. ; Additional info: Neck pain / trauma TECHNIQUE: Imaging protocol: Computed tomography of the cervical spine without contrast. Radiation optimization: All CT scans at this facility use at least one of these dose optimization techniques: automated exposure control; mA and/or kV adjustment per patient size (includes targeted exams where dose is matched to clinical indication); or iterative reconstruction. COMPARISON: CT cervical spin wo con* [id number] 09/19/2019 11:36 AM RADIATION DOSE METRICS: Total DLP (mGy-cm): 594.85 FINDINGS: Bones: Straightening of the cervical lordosis. Trace anterolisthesis of C4 on C5. The alignment is otherwise maintained. The bones are diffusely osteopenic. There are some lucent lesions throughout the cervical spine which are nonspecific. The vertebral body heights are maintained. No evidence of acute fractures. There are disc bulges at multiple levels, perhaps worse at C4-C5, resulting in mild indentation on the ventral aspect of the thecal sac without severe spinal canal stenosis. There are bilateral facet arthropathy and uncovertebral hypertrophy with same degree of mild neural foraminal stenoses at multiple levels. Lungs: Lung apices are normal. Thyroid: There is thyromegaly with enlargement of the left thyroid lobe with a calcified lesion along the posterior aspect of the left thyroid lobe. There is extension of the left thyroid gland to the upper mediastinum. A nonemergent thyroid ultrasound is recommended for further evaluation. Soft tissues: Unremarkable. CT/CT cervical spin wo con* [id number] IMPRESSION: 1. No evidence of acute fracture or traumatic malalignment in the cervical spine. 2. Left thyromegaly with the calcified thyroid lobe. A nonemergent thyroid ultrasound is recommended for further evaluation.
--- NOTE | 2024-08-29 23:07 | CTR_ITS ---
PROCEDURE INFORMATION: Exam: CT Head Without Contrast Exam date and time: 08/29/2024 11:24 PM Age: 69 years old Clinical indication: Injury or trauma; Blunt trauma (contusions or hematomas); Fall from standing with head strike on concrete. TECHNIQUE: Imaging protocol: Computed tomography of the head without contrast. Radiation optimization: All CT scans at this facility use at least one of these dose optimization techniques: automated exposure control; mA and/or kV adjustment per patient size (includes targeted exams where dose is matched to clinical indication); or iterative reconstruction. COMPARISON: CT head wo con* [id number] 12/29/2021 7:12 PM RADIATION DOSE METRICS: Total DLP (mGy-cm): 2491.81 FINDINGS: Brain: Suggestion of a small isodense collection along the right cerebral convexity measuring approximately 3 mm in thickness, (series 15, image 44), and questionable trace similar finding on the left measuring less than 2 mm in thickness, (series 15, image 49 for example). Findings could represent minimal subacute or chronic subdural hematomas or subdural hygromas. Otherwise, no acute intra- or extra axial fluid collections are identified. The basal cisterns are patent. No mass effect or midline shift is seen. There are multiple patchy foci of hypoattenuation in the bilateral periventricular white matter and along the internal capsules, right more than left with overall grossly similar to the prior. The martinez-white matter differentiation is otherwise maintained. Periventricular hypoattenuation are nonspecific but likely the sequela of chronic small vessel ischemic disease. Suggestion of a partially empty sella. There is a small area of CSF posterior to the cerebellum which could represent a deanna cisterna magna or a small retro cerebellar arachnoid cyst. Cerebral ventricles: The ventricles are of stable size, shape, and morphology. Paranasal sinuses: Partial opacification of the right ethmoid air cells. Minimal layering retained fluid in the sphenoid sinus. Mild mucosal thickening in the remaining paranasal sinuses.. Mastoid air cells: Partial opacification of the right mastoid air cells. Trace opacification in the left mastoid air cells. Orbital cavities: The orbits appear normal. Bones: No acute calvarial fracture is identified. Soft tissues: No soft tissue abnormalities identified. Vasculature: There are atherosclerotic calcifications of the carotid siphons and the V4 segments of the vertebral arteries. CT/CT head wo con* [id number] IMPRESSION: 1. Suggestion of a small isodense collection along the right cerebral convexity measuring approximately 3 mm in thickness, (series 15, image 44), and questionable trace similar finding on the left measuring less than 2 mm in thickness, (series 15, image 49 for example). Findings could represent minimal subacute or chronic subdural hematomas or subdural hygromas. No significant mass effect. 2. Scattered patchy foci of hypoattenuation in the bilateral cerebral hemispheres which are nonspecific and could relate to chronic small vessel ischemic disease. 3. Otherwise, no evidence of acute intracranial hemorrhage is identified. 4. No midline shift. 5. Please note that CT is insensitive to non hemorrhagic strokes and MRI of the brain should be considered, if there is clinical concern for acute cerebral infarction.
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
[2024-08-29 23:52] VITALS: RESP 18; O2SAT 100
[2024-08-29] MEDS: morphine 4 mg/mL SDV 1 mL IM (23:52)
[2024-08-29 23:55] VITALS: BP 115/63; PULSE 77; O2SAT 99
[2024-08-30 01:31] VITALS: BP 124/64; PULSE 75; O2SAT 98
[2024-08-30 02:24] VITALS: BP 107/55; PULSE 74; O2SAT 97
== END 2024-08-30 02:25 | disposition home or self-care (01) ==
PROVIDERS: Emergency Provider Family Medicine; PCP Family Medicine
DX: R93.0 Abnormal findings on diagnostic imaging of skull and head, not elsewhere classified (principal); T14.8XXA Other injury of unspecified body region, initial encounter; Z79.82 Long term (current) use of aspirin; Z79.4 Long term (current) use of insulin; J44.9 Chronic obstructive pulmonary disease, unspecified; E11.9 Type 2 diabetes mellitus without complications; E78.5 Hyperlipidemia, unspecified; I11.0 Hypertensive heart disease with heart failure; I50.30 Unspecified diastolic (congestive) heart failure; X58.XXXA Exposure to other specified factors, initial encounter
CPT/HCPCS: 70450; 72125; 72170; 96372; 99284; J2270

== ENCOUNTER 2024-09-28 15:08 | Emergency (ER) | payer MEDICARE, MEDICAID, SELFPAY ==
[2024-09-28 15:17] VITALS: BP 109/76; PULSE 75; TEMP 36.7; O2SAT 98; BMI 41.9
--- NOTE | 2024-09-28 15:22 | XRR_ITS ---
PROCEDURE INFORMATION: Exam: XR Chest Exam date and time: 09/28/2024 5:22 PM Age: 69 years old Clinical indication: Shortness of breath; Prior surgery; Surgery date: 6+ months; Surgery type: Mitral valve replacement; Cardiac HX and copd; Additional info: SOB TECHNIQUE: Imaging protocol: Radiologic exam of the chest. Views: 1 view. COMPARISON: CR XR chest 1V portable [id number] 06/09/2024 4:40 PM FINDINGS: Lungs: No focal infiltrate or consolidation. Pulmonary vascularity mildly prominent, some component which could be related to technique. Findings are similar in appearance to previous exam. Pleural spaces: No significant pleural effusion. No pneumothorax. Heart/Mediastinum: Mild cardiomegaly, as noted with prior exam. Bones/joints: Visualized osseous structures show no acute abnormality. Mild degenerative changes. XR/XR chest 1V portable [id number] IMPRESSION: 1. Mild cardiomegaly. 2. Pulmonary vascularity mildly prominent, some component which could be related to AP technique. Consider mild vascular congestion. No overt pulmonary edema. No consolidation or effusion.
--- NOTE | 2024-09-28 15:22 | ECG_ITS ---
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 Measurements Intervals [place] Rate: 76 P: 45 SD: 192 QRS: 70 QRSD: 106 T: 67 QT: 395 QTc: 447 Interpretive Statements SINUS RHYTHM POSSIBLE ANTERIOR MYOCARDIAL INFARCTION , OF INDETERMINATE AGE [30 ms Q WAVE IN V3/V4, OR R < 0.2 mV IN V4] INTERPRETATION BASED ON A DEFAULT AGE OF 40 YEARS Compared to ECG 06/09/2024 16:23:29 Myocardial infarct finding now present Electronically Signed On 09-30-2024 10:01:08 CDT by Jay Adler M.D. [email or web address]
[2024-09-28 17:00] VITALS: PULSE 90; O2SAT 92
[2024-09-28 17:02] LABS: Hematocrit 46.8 % (36-47); Hemoglobin 14.00 g/dL (11.27-16.99); Mean Corpuscular HGB Conc 29.9 g/dL (30-55); Mean Corpuscular Hemoglobin 27.1 pg (27-33); Mean Corpuscular Volume 90.5 fl (85-98); Nucleated Red Blood Cells % 0 %; Platelet Count 156 10^3/cmm (157-399); Red Blood Count 5.17 10^6/uL (3.85-5.65); White Blood Count 8.15 10^3/uL (3.29-11.43)
--- NOTE | 2024-09-28 17:23 | W.ED.SOB ---
HPI - SOB/Dyspnea General: Chief Complaint: Shortness of Breath/Dyspnea Stated Complaint: SOB Time Seen by Provider: 09/28/24 17:22 Source: patient Mode of arrival: ambulatory Limitations: no limitations History of Present Illness: HPI Narrative: 69-year-old female history of COPD as well as CHF does wear oxygen at night but [place] 2 L as needed states she had some increased cough and some slight dyspnea over the last 2 to 3 days. She has been wearing 2 L oxygen constantly she is in no distress here talking full senses she denies any chest pain or fevers. Associated symptoms: Deny abdominal pain, chest pain, fever(s), nausea or vomiting Related Data Home Medications ?Medication ?Instructions ?Recorded ?Confirmed acetaminophen 500 mg tablet 500 mg PO Q6H PRN Pain 05/16/19 04/22/24 (Tylenol Extra Strength) bisacodyl 5 mg tablet,delayed 10 mg PO DAILY PRN Constipation 05/16/19 04/22/24 release (Dulcolax (bisacodyl)) carbamide peroxide 6.5 % ear drops 10 drp otic (ear) Q30D 05/16/19 04/22/24 (Debrox) fluticasone fur. 100 mcg-umeclid 1 inh inhalation DAILY@05/16/19 04/22/24 62.5 mcg-vilant 25 mcg inhalat.powder (Trelegy Ellipta) gabapentin 300 mg capsule 300 mg PO BID@0700,199905/16/19 04/22/24 magnesium hydroxide 400 mg/5 mL 30 ml PO DAILY PRN Constipation 05/16/19 04/22/24 oral suspension (Milk of Magnesia) melatonin 5 mg tablet 5 mg PO BEDTIME@199905/16/19 04/22/24 roflumilast 500 mcg tablet 500 mcg PO DAILY@69905/16/19 04/22/24 (Daliresp) sodium chloride 0.65 % nasal spray See Rx Instructions .Route .COMPLEX 05/31/19 04/22/24 aerosol (Saline Nasal) venlafaxine 75 mg capsule,extended 75 mg PO DAILY@0700 05/31/19 04/22/24 release 24 hr levetiracetam 500 mg tablet See Rx Instructions .Route .COMPLEX 06/03/19 04/22/24 mirabegron 25 mg tablet,extended 25 mg PO DAILY@0700 10/28/20 04/22/24 release 24 hr (Myrbetriq) promethazine-DM 6.25 mg-15 mg/5 mL 5 ml PO Q6H PRN Cough 10/28/20 04/22/24 oral syrup aspirin 81 mg tablet,delayed 81 mg PO DAILY@12/09/20 04/22/24 release fluoride (sodium) 1.1 % dental See Rx Instructions .Route .COMPLEX 12/09/20 04/22/24 cream (SF 5000 Plus) loperamide 2 mg tablet 2 mg PO QID PRN Diarrhea 12/09/20 04/22/24 pantoprazole 40 mg tablet,delayed 40 mg PO DAILY@12/09/20 04/22/24 release rosuvastatin 40 mg tablet 40 mg PO DAILY@09/08/21 04/22/24 bumetanide 0.5 mg tablet 0.5 mg PO DAILY@01/05/22 04/22/24 carboxymethylcellulose sodium 0.5 1 - 2 drp ophthalmic (eye) QID PRN 01/05/22 04/22/24 % eye drops (Refresh Tears) Dry Eye(S) clotrimazole 1 % topical cream See Rx Instructions .Route .COMPLEX 01/05/22 04/22/24 ipratropium 0.5 mg-albuterol 3 mg 3 ml inhalation Q4H PRN Shortness 01/05/22 04/22/24 (2.5 mg base)/3 mL nebulization Of Breath soln cholecalciferol (vitamin D3) 50 50 mcg PO DAILY@07/09/22 04/22/24 mcg (2,000 unit) capsule (Vitamin D3) empagliflozin 25 mg tablet 25 mg PO DAILY@07/09/22 04/22/24 (Jardiance) insulin degludec 100 unit/mL (3 10 unit SUBCUT BEDTIME 07/09/22 04/22/24 mL) subcutaneous pen (Tresiba FlexTouch U-100 insulin) lidocaine 5 % topical patch 1 patch topical DAILY PRN Pain 07/09/22 04/22/24 vitamins A,C,J-ntpk-efaxfz 4,296 1 cap PO BID@,07/09/22 04/22/24 mcg-226 mg-90 mg capsule (PreserVision AREDS) nystatin 100,000 unit/gram topical 1 applic topical BID PRN Skin 01/21/23 04/22/24 powder Irritation semaglutide 1 mg/dose (4 mg/3 mL) 1 mg SUBCUT Q7D 01/21/23 04/22/24 subcutaneous pen injector (Ozempic) L.acidophil,salivari-Bifido 1 cap PO QPM 09/20/23 04/22/24 bifidum-Strep thermoph 175 mg capsule (Acidophilus Probiotic Blend) ammonium lactate 12 % topical cream 1 applic topical BEDTIME 09/20/23 04/22/24 fluticasone propionate 50 1 spray intranasal QAM 09/20/23 04/22/24 mcg/actuation nasal spray,suspension hydrocortisone 1 % topical cream 1 applic topical TID PRN Skin 09/20/23 04/22/24 Irritation hydroxyzine pamoate 25 mg capsule 25 mg PO Q8H PRN Anxiety 09/20/23 04/22/24 camphor-menthol 0.2 %-3.5 % 1 applic topical BID PRN Muscle 04/22/24 04/22/24 topical gel Pain ibuprofen 200 mg tablet 24,000 mg PO Q6H PRN Pain 04/22/24 04/22/24 insulin lispro 100 unit/mL See Rx Instructions .Route .COMPLEX 04/22/24 04/22/24 subcutaneous pen (Humalog KwikPen (U-100) Insulin) menthol 3.2 mg lozenges ([place] 3.2 mg mucous membrane Q2H PRN 04/22/24 04/22/24 Cough Drops) Cough miconazole nitrate 2 % topical 1 applic topical BID 04/22/24 04/22/24 cream psyllium seed (sugar) oral powder 1 tbsp PO BID 04/22/24 04/22/24 Previous Rx's ?Medication ?Instructions ?Recorded ondansetron 4 mg disintegrating 4 mg PO Q6H PRN nausea and 01/30/20 tablet vomiting #14 tabs Diabetic Shoes #1 ea 11/03/21 albuterol sulfate 90 mcg/actuation 2 inh inhalation Q4H PRN shortness 03/22/24 aerosol inhaler of breath or wheezing #18 grams cephalexin 500 mg capsule 500 mg PO TID 7 days #21 caps 09/28/24 Allergies Allergy/AdvReac Type Severity Reaction Status Date / Time metformin Allergy ADR-Dry Verified 09/28/24 15:30 Mucus Membranes Penicillins Allergy ALGY-Anaphy Verified 09/28/24 15:30 laxis Sulfa (Sulfonamide Allergy ALGY-Anaphy Verified 09/28/24 15:30 Antibiotics) laxis Review of Systems Const: Denies: fever(s), chills, body aches or change in appetite ENMT: Denies: throat pain or dental pain Card: Denies: chest pain Resp: Reports: dyspnea and productive cough GI: Denies: abdominal pain, nausea, vomiting or diarrhea Musc: Denies: neck pain or back pain Skin/Breast: Denies: rash Neuro: Denies: headache(s) PFSH ED PFSH: Medical History Acute exacerbation of chronic obstructive airways disease T12 vertebral fracture Small bowel obstruction Benign essential hypertension with target blood pressure below 140/90 Restrictive lung disease Chronic respiratory failure with hypoxia and hypercapnia Sleep apnea Obesity hypoventilation syndrome Acute on chronic diastolic (congestive) heart failure Nonischemic cardiomyopathy Moderate to severe mitral regurgitation Depression Seizure disorder Hyperlipidemia Type 2 diabetes mellitus Hypertension Obstructive sleep apnea Tricuspid regurgitation Obesity COPD (chronic obstructive pulmonary disease) Diastolic congestive heart failure Pulmonary hypertension Surgical History Ulnar nerve compression History of H/O mitral valve replacement Family History Brother CAD (coronary artery disease) Sister CAD (coronary artery disease) Grandmother Diabetes Mother Stroke Denies family history of Clotting disorder Dementia Chronic kidney disease (CKD) Suicide Anesthesia complication Bleeding disorder Lung disease Cancer Social History Smoking and tobacco/nicotine status: never used tobacco/nicotine Second hand smoke exposure: Yes Alcohol intake: never Substance/Drug Use: never Caregiver/support person: Yes Lives independently: No Housing: Assisted Living Facility Marital status: / Current occupational status: retired and disabled Do you think of yourself as: Straight/Heterosexual Current gender identity: Female Physical Exam Const: COMMON NORMALS: no acute distress, patient oriented x3 and healthy appearing HENMT: COMMON NORMALS: normocephalic and atraumatic HEAD & SCALP: normocephalic and atraumatic Eye: COMMON NORMALS: conjunctivae normal CONJUNCTIVA: Yes conjunctivae normal Neck/C-Spine: COMMON NORMALS: full ROM and supple Chest: COMMONS NORMALS: normal inspection of the chest Resp: COMMON NORMALS: normal respiratory effort, No retractions, No use of accessory muscles and clear to auscultation bilaterally AUSCULTATION: clear to auscultation bilaterally Cardio: COMMON NORMALS: regular rate, regular rhythm and No murmurs present (Cardio) RATE: regular rate RHYTHM: regular rhythm Extremity: COMMON NORMALS: normal to inspection and full ROM Neuro: COMMON NORMALS: patient oriented x3, moves all extremities and no focal motor deficits Psych: COMMON NORMALS: mental status grossly normal, Normal thought process present and cooperative THOUGHT PROCESS: Normal thought process present Skin: COMMON NORMALS: no rashes or lesions noted and no wounds GENERAL SKIN EXAM: no rashes or lesions noted Course Vital Signs: Vital signs: Vital Signs Temperature 98.0 F 09/28/24 15:17 Pulse Rate 75 09/28/24 15:17 Blood Pressure 109/76 09/28/24 15:17 Pulse Oximetry 98 09/28/24 15:17 Oxygen Delivery Me thod Nasal Cannula 09/28/24 15:17 Oxygen Flow Rate 2 09/28/24 15:17 MDM - SOB/Dyspnea Medical Decision Making Patient presents here with cough slight increased dyspnea she has been well-appearing here in no distress likely upper respiratory infection will start on Keflex she is stable for discharge follow-up PCP return if worsening. Medical Records I reviewed the patient's medical records. Lab Data I reviewed the patient's lab results. 09/28/24 16:41 09/28/24 16:41 Labs/Radiology: Laboratory Results WBC 8.15 10^3/uL (3.29-11.43) 09/28/24 16:41 RBC 5.17 10^6/uL (3.85-5.65) 09/28/24 16:41 Hgb 14.00 g/dL (11.27-16.99) 09/28/24 16:41 Hct 46.8 % (36-47) 09/28/24 16:41 MCV 90.5 fl (85-98) 09/28/24 16:41 MCH 27.1 pg (27-33) 09/28/24 16:41 MCHC 29.9 g/dL (30-55) L 09/28/24 16:41 RDW 14.6 % (12.1-15.1) 09/28/24 16:41 Plt Count 156 10^3/cmm (157-399) L 09/28/24 16:41 MPV 11.3 fL (7.4-10.4) H 09/28/24 16:41 Neut % (Auto) 68.0 % 09/28/24 16:41 Lymph % (Auto) 19.0 % 09/28/24 16:41 Hanson % (Auto) 7.2 % 09/28/24 16:41 Eos % (Auto) 5.0 % 09/28/24 16:41 Baso % (Auto) 0.4 % 09/28/24 16:41 Neut # (Auto) 5.54 10^3/uL (1.8-7.7) 09/28/24 16:41 Lymph # (Auto) 1.6 10^3/uL (0.8-4.8) 09/28/24 16:41 Hanson # (Auto) 0.6 10^3/uL (0.2-0.9) 09/28/24 16:41 Eos # (Auto) 0.4 10^3/uL (0.0-0.8) 09/28/24 16:41 Baso # (Auto) 0.0 10^3/uL (0.0-0.1) 09/28/24 16:41 Nucleated RBC % (auto) 0 % 09/28/24 16:41 Nucleated RBCs # 0.0 /100WBC 09/28/24 16:41 Sodium 140 mmol/L (136-145) 09/28/24 16:41 Potassium 4.8 mmol/L (3.5-5.1) 09/28/24 16:41 Chloride 98 mmol/L (98-107) 09/28/24 16:41 Carbon Dioxide 29 mmol/L (22-29) 09/28/24 16:41 Anion Gap 17.8 (5-19) 09/28/24 16:41 BUN 20 mg/dL (8-23) 09/28/24 16:41 Creatinine 0.8 mg/dL (0.5-0.9) 09/28/24 16:41 GFR Calculation Not Reportable 09/28/24 16:41 Glucose 104 mg/dL (65-115) 09/28/24 16:41 Calculated Osmolality 293 mOsm/kg (285-295) 09/28/24 16:41 Calcium 10.4 mg/dL (8.5-10.5) 09/28/24 16:41 Total Bilirubin 0.2 mg/dL (0.15-1.2) 09/28/24 16:41 AST 18 U/L (0-32) 09/28/24 16:41 ALT 13 U/L (0-33) 09/28/24 16:41 Total Protein 7.1 g/dL (6.6-8.7) 09/28/24 16:41 Albumin 4.2 g/dL (3.5-5.2) 09/28/24 16:41 Globulin 2.9 g/dL (1.3-4.6) 09/28/24 16:41 XR interpretation done by ED provider, pending radiology final review ED provider radiology interpretation(s): Chest x-ray no acute abnormality Discharge Plan Discharge Patient Disposition: Home Clinical Impression: Upper respiratory infection Condition: Stable Prescriptions: New cephalexin 500 mg capsule 500 mg PO TID 7 Days Qty: 21 0RF No Action rosuvastatin 40 mg tablet 40 mg PO DAILY@20 (DME) Diabetic Shoes See Rx Instructions .Route .MEDSUPPLY Qty: 1 0RF Rx Instructions: As directed ondansetron 4 mg tablet,disintegrating 4 mg PO Q6H PRN (Reason: nausea and vomiting) Qty: 14 0RF mirabegron [Myrbetriq] 25 mg tablet extended release 24 hr 25 mg PO DAILY@0700 promethazine-DM 6.25-15 mg/5 mL Syrup 5 ml PO Q6H PRN (Reason: Cough) fluoride (sodium) [SF 5000 Plus] 1.1 % Cream See Rx Instructions .ROUTE .COMPLEX Rx Instructions: Burt on teeth twice daily with use of regular tooth paste do not eat or drink 30 mins after (use at 07:00 & 20:00) aspirin 81 mg tablet,delayed release (DR/EC) 81 mg PO DAILY@07 loperamide 2 mg Tablet 2 mg PO QID PRN (Reason: Diarrhea) pantoprazole 40 mg tablet,delayed release (DR/EC) 40 mg PO DAILY@07 Debrox 6.5 % Drops 10 drp otic (ear) Q30D Rx Instructions: ON THE OF EACH MONTH. roflumilast [Daliresp] 500 mcg tablet 500 mcg PO DAILY@0700 Trelegy Ellipta 100-62.5-25 mcg blister with device 1 inh inhalation DAILY@07 acetaminophen [Tylenol Extra Strength] 500 mg Tablet 500 mg PO Q6H PRN (Reason: Pain) magnesium hydroxide [Milk of Magnesia] 400 mg/5 mL Suspension 30 ml PO DAILY PRN (Reason: Constipation) Rx Instructions: IF NO BM FOR 3 DAYS gabapentin 300 mg capsule 300 mg PO BID@0700,1999 bisacodyl [Dulcolax (bisacodyl)] 5 mg Tablet,Delayed Release (Dr/Ec) 10 mg PO DAILY PRN (Reason: Constipation) melatonin 5 mg Tablet 5 mg PO BEDTIME@2000 venlafaxine 75 mg Capsule,Extended Release 24hr 75 mg PO DAILY@0700 Saline Nasal 0.65 % Aerosol,[place] See Rx Instructions .ROUTE .COMPLEX Rx Instructions: SQUEEZE INTO DRY NOSTRILS TWICE DAILY THEN FOLLOW WITH BACTROBAN. USE AT 0700 AND 1999 levetiracetam 500 mg tablet See Rx Instructions .ROUTE .COMPLEX Rx Instructions: TAKE 500 MG BY MOUTH IN THE MORNING AND 1,000 MG IN THE PM nystatin 100,000 unit/gram powder 1 applic topical BID PRN (Reason: Skin Irritation) Ozempic 1 mg/dose (4 mg/3 mL) pen injector 1 mg SUBCUT Q7D Rx Instructions: MONDAYS hydrocortisone 1 % Cream 1 applic TOPICAL TID PRN (Reason: Skin Irritation) fluticasone propionate 50 mcg/actuation spray,suspension 1 spray INTRANASAL QAM hydroxyzine pamoate 25 mg capsule 25 mg PO Q8H PRN (Reason: Anxiety) L.acidoph,saliva-B.bif-S.therm [Acidophilus Probiotic Blend] 175 mg Capsule 1 cap PO QPM ammonium lactate 12 % cream 1 applic topical BEDTIME albuterol sulfate 90 mcg/actuation HFA aerosol inhaler 2 inh INHALATION Q4H PRN (Reason: shortness of breath or wheezing) Qty: 18 0RF insulin lispro [Humalog KwikPen Insulin] 100 unit/mL Insulin Pen See Rx Instructions .ROUTE .COMPLEX Rx Instructions: inject subq per sliding scale as follows: bs 201-250=2 units, 251-300=4 units, 301-350=6 units, 351-400=8 units. Max dose 24 units daily miconazole nitrate 2 % Cream 1 applic TOPICAL BID ibuprofen 200 mg Tablet 24,000 mg PO Q6H PRN (Reason: Pain) Natural Fiber Powder 1 tbsp PO BID [place] Cough Drops 3.2 mg Lozenge 3.2 mg MUCOUS MEMBRANE Q2H PRN (Reason: Cough) Biofreeze 0.2-3.5 % Gel 1 applic TOPICAL BID PRN (Reason: Muscle Pain) Rx Instructions: rub in gently and completely bumetanide 0.5 mg tablet 0.5 mg PO DAILY@07 ipratropium-albuterol 0.5 mg-3 mg(2.5 mg base)/3 mL Solution For Nebulization 3 ml INHALATION Q4H PRN (Reason: Shortness Of Breath) carboxymethylcellulose sodium [Refresh Tears] 0.5 % Drops 1 - 2 drp ophthalmic (eye) QID PRN (Reason: Dry Eye(S)) clotrimazole 1 % Cream See Rx Instructions .ROUTE .COMPLEX Rx Instructions: Apply topically to scales in right foot (toes) at bedtime. cholecalciferol (vitamin D3) [Vitamin D3] 50 mcg (2,000 unit) Capsule 50 mcg PO DAILY@07 Jardiance 25 mg Tablet 25 mg PO DAILY@07 lidocaine 5 % Adhesive Patch,Medicated 1 patch TOPICAL DAILY PRN (Reason: Pain) Rx Instructions: leave on most painful area for up to 12 hrs then off for 12 hours PreserVision AREDS 14,320-226-200 ftvf-di-phnt capsule 1 cap PO BID@, insulin degludec [Tresiba FlexTouch U-100] 100 unit/mL (3 mL) Insulin Pen 10 unit SUBCUT BEDTIME Discharge Orders: Discharge ED (Routine); Ordered 09/28/24 Ordered By: Devorah Agee Referrals: Tashi Acosta MD [Primary Care Provider, Family Practice] - 4-7 days Discharge Diet: Advance as tolerated Discharge Activity: Resume usual activity Patient Instructions: Upper Respiratory Infection (ED) Print Language: Gambian Coding Level of Care Code ED Rfid Manager for Kanchan Abdi
[2024-09-28 17:30] VITALS: BP 117/68; PULSE 75; O2SAT 95
[2024-09-28 17:40] LABS: Alanine Aminotransferase 13 U/L (0-33); Albumin Level 4.2 g/dL (3.5-5.2); Alkaline Phosphatase 147 U/L (35-105); Anion Gap 17.8 (5-19); Aspartate Amino Transferase 18 U/L (0-32); Blood Urea Nitrogen 20 mg/dL (8-23); Calcium 10.4 mg/dL (8.5-10.5); Carbon Dioxide 29 mmol/L (22-29); Chloride 98 mmol/L (98-107); Creatinine Clr Calc Pharmacy 86.3682; Globulin 2.9 g/dL (1.3-4.6); Glucose 104 mg/dL (65-115); NT Pro B Type Natriuretic Pept 198 pg/mL (0-125); Osmolality Calculated 293 mOsm/kg (285-295); Potassium 4.8 mmol/L (3.5-5.1); Sodium 140 mmol/L (136-145); Total Protein 7.1 g/dL (6.6-8.7)
[2024-09-28 18:14] VITALS: BP 105/72; PULSE 74; O2SAT 95
== END 2024-09-28 18:15 | disposition home or self-care (01) ==
PROVIDERS: Emergency Provider Emergency Medicine; PCP Family Medicine
DX: J06.9 Acute upper respiratory infection, unspecified (principal); J44.9 Chronic obstructive pulmonary disease, unspecified; Z99.81 Dependence on supplemental oxygen; Z79.899 Other long term (current) drug therapy; Z79.4 Long term (current) use of insulin; Z79.85 Long-term (current) use of injectable non-insulin antidiabetic drugs; Z88.0 Allergy status to penicillin; Z88.2 Allergy status to sulfonamides; Z88.8 Allergy status to other drugs, medicaments and biological substances; I11.0 Hypertensive heart disease with heart failure; G47.33 Obstructive sleep apnea (adult) (pediatric); E78.5 Hyperlipidemia, unspecified; G40.909 Epilepsy, unspecified, not intractable, without status epilepticus; I50.32 Chronic diastolic (congestive) heart failure
CPT/HCPCS: 36415; 71045; 80053; 83880; 85025; 93005; 99285

== ENCOUNTER 2024-10-13 19:50 | Emergency (ER) | payer OTHER, MEDICAID, SELFPAY ==
[2024-10-13 20:04] VITALS: BP 108/67; PULSE 90; RESP 16; TEMP 36.5; O2SAT 91
--- NOTE | 2024-10-13 20:13 | W.ED.WOUNDLC ---
HPI - Wound/Laceration General: Chief Complaint: Wound/Laceration Stated Complaint: Right Arm Cyst Time Seen by Provider: 10/13/24 19:56 Source: patient Mode of arrival: ambulatory Limitations: no limitations History of Present Illness: 69-year-old female states over the last few days she noted some redness to her posterior right upper arm. She has had some slight pain she denies any injuries or open wounds or drainage. She denies any fevers denies any worse improving factors. Associated symptoms: Denies chills, fever(s), nausea or vomiting Related Data Home Medications ?Medication ?Instructions ?Recorded ?Confirmed acetaminophen 500 mg tablet 500 mg PO Q6H PRN Pain 05/16/19 04/22/24 (Tylenol Extra Strength) bisacodyl 5 mg tablet,delayed 10 mg PO DAILY PRN Constipation 05/16/19 04/22/24 release (Dulcolax (bisacodyl)) carbamide peroxide 6.5 % ear drops 10 drp otic (ear) Q30D 05/16/19 04/22/24 (Debrox) fluticasone fur. 100 mcg-umeclid 1 inh inhalation DAILY@05/16/19 04/22/24 62.5 mcg-vilant 25 mcg inhalat.powder (Trelegy Ellipta) gabapentin 300 mg capsule 300 mg PO BID@07,199905/16/19 04/22/24 magnesium hydroxide 400 mg/5 mL 30 ml PO DAILY PRN Constipation 05/16/19 04/22/24 oral suspension (Milk of Magnesia) melatonin 5 mg tablet 5 mg PO BEDTIME@199905/16/19 04/22/24 roflumilast 500 mcg tablet 500 mcg PO DAILY@69905/16/19 04/22/24 (Daliresp) sodium chloride 0.65 % nasal spray See Rx Instructions .Route .COMPLEX 05/31/19 04/22/24 aerosol (Saline Nasal) venlafaxine 75 mg capsule,extended 75 mg PO DAILY@69905/31/19 04/22/24 release 24 hr levetiracetam 500 mg tablet See Rx Instructions .Route .COMPLEX 06/03/19 04/22/24 mirabegron 25 mg tablet,extended 25 mg PO DAILY@69910/28/20 04/22/24 release 24 hr (Myrbetriq) promethazine-DM 6.25 mg-15 mg/5 mL 5 ml PO Q6H PRN Cough 10/28/20 04/22/24 oral syrup aspirin 81 mg tablet,delayed 81 mg PO DAILY@12/09/20 04/22/24 release fluoride (sodium) 1.1 % dental See Rx Instructions .Route .COMPLEX 12/09/20 04/22/24 cream (SF 5000 Plus) loperamide 2 mg tablet 2 mg PO QID PRN Diarrhea 12/09/20 04/22/24 pantoprazole 40 mg tablet,delayed 40 mg PO DAILY@12/09/20 04/22/24 release rosuvastatin 40 mg tablet 40 mg PO DAILY@09/08/21 04/22/24 bumetanide 0.5 mg tablet 0.5 mg PO DAILY@01/05/22 04/22/24 carboxymethylcellulose sodium 0.5 1 - 2 drp ophthalmic (eye) QID PRN 01/05/22 04/22/24 % eye drops (Refresh Tears) Dry Eye(S) clotrimazole 1 % topical cream See Rx Instructions .Route .COMPLEX 01/05/22 04/22/24 ipratropium 0.5 mg-albuterol 3 mg 3 ml inhalation Q4H PRN Shortness 01/05/22 04/22/24 (2.5 mg base)/3 mL nebulization Of Breath soln cholecalciferol (vitamin D3) 50 50 mcg PO DAILY@07/09/22 04/22/24 mcg (2,000 unit) capsule (Vitamin D3) empagliflozin 25 mg tablet 25 mg PO DAILY@07/09/22 04/22/24 (Jardiance) insulin degludec 100 unit/mL (3 10 unit SUBCUT BEDTIME 07/09/22 04/22/24 mL) subcutaneous pen (Tresiba FlexTouch U-100 insulin) lidocaine 5 % topical patch 1 patch topical DAILY PRN Pain 07/09/22 04/22/24 vitamins A,C,D-tuxk-yjyrae 4,296 1 cap PO BID@07,19 07/09/22 04/22/24 mcg-226 mg-90 mg capsule (PreserVision AREDS) nystatin 100,000 unit/gram topical 1 applic topical BID PRN Skin 01/21/23 04/22/24 powder Irritation semaglutide 1 mg/dose (4 mg/3 mL) 1 mg SUBCUT Q7D 01/21/23 04/22/24 subcutaneous pen injector (Ozempic) L.acidophil,salivari-Bifido 1 cap PO QPM 09/20/23 04/22/24 bifidum-Strep thermoph 175 mg capsule (Acidophilus Probiotic Blend) ammonium lactate 12 % topical cream 1 applic topical BEDTIME 09/20/23 04/22/24 fluticasone propionate 50 1 spray intranasal QAM 09/20/23 04/22/24 mcg/actuation nasal spray,suspension hydrocortisone 1 % topical cream 1 applic topical TID PRN Skin 09/20/23 04/22/24 Irritation hydroxyzine pamoate 25 mg capsule 25 mg PO Q8H PRN Anxiety 09/20/23 04/22/24 camphor-menthol 0.2 %-3.5 % 1 applic topical BID PRN Muscle 04/22/24 04/22/24 topical gel Pain ibuprofen 200 mg tablet 24,000 mg PO Q6H PRN Pain 04/22/24 04/22/24 insulin lispro 100 unit/mL See Rx Instructions .Route .COMPLEX 04/22/24 04/22/24 subcutaneous pen (Humalog KwikPen (U-100) Insulin) menthol 3.2 mg lozenges ([place] 3.2 mg mucous membrane Q2H PRN 04/22/24 04/22/24 Cough Drops) Cough miconazole nitrate 2 % topical 1 applic topical BID 04/22/24 04/22/24 cream psyllium seed (sugar) oral powder 1 tbsp PO BID 04/22/24 04/22/24 Previous Rx's ?Medication ?Instructions ?Recorded ondansetron 4 mg disintegrating 4 mg PO Q6H PRN nausea and 01/30/20 tablet vomiting #14 tabs Diabetic Shoes #1 ea 11/03/21 albuterol sulfate 90 mcg/actuation 2 inh inhalation Q4H PRN shortness 03/22/24 aerosol inhaler of breath or wheezing #18 grams cephalexin 500 mg capsule 500 mg PO TID 7 days #21 caps 10/13/24 Allergies Allergy/AdvReac Type Severity Reaction Status Date / Time metformin Allergy ADR-Dry Verified 10/13/24 20:07 Mucus Membranes Penicillins Allergy ALGY-Anaphy Verified 10/13/24 20:07 laxis Sulfa (Sulfonamide Allergy ALGY-Anaphy Verified 10/13/24 20:07 Antibiotics) laxis Review of Systems Const: Denies: fever(s), chills, body aches or change in appetite ENMT: Denies: throat pain or dental pain Card: Denies: chest pain Resp: Denies: dyspnea GI: Denies: abdominal pain, nausea, vomiting or diarrhea Musc: Denies: neck pain or back pain Skin/Breast: Reports: erythema; Denies: rash Neuro: Denies: headache(s) PFSH ED PFSH: Medical History Acute exacerbation of chronic obstructive airways disease T12 vertebral fracture Small bowel obstruction Benign essential hypertension with target blood pressure below 140/90 Restrictive lung disease Chronic respiratory failure with hypoxia and hypercapnia Sleep apnea Obesity hypoventilation syndrome Acute on chronic diastolic (congestive) heart failure Nonischemic cardiomyopathy Moderate to severe mitral regurgitation Depression Seizure disorder Hyperlipidemia Type 2 diabetes mellitus Hypertension Obstructive sleep apnea Tricuspid regurgitation Obesity COPD (chronic obstructive pulmonary disease) Diastolic congestive heart failure Pulmonary hypertension Surgical History Ulnar nerve compression History of H/O mitral valve replacement Family History Brother CAD (coronary artery disease) Sister CAD (coronary artery disease) Grandmother Diabetes Mother Stroke Denies family history of Clotting disorder Dementia Chronic kidney disease (CKD) Suicide Anesthesia complication Bleeding disorder Lung disease Cancer Social History Smoking and tobacco/nicotine status: never used tobacco/nicotine Second hand smoke exposure: Yes Alcohol intake: never Substance/Drug Use: never Caregiver/support person: Yes Lives independently: No Housing: Assisted Living Facility Marital status: / Current occupational status: retired and disabled Do you think of yourself as: Straight/Heterosexual Current gender identity: Female Physical Exam Const: COMMON NORMALS: no acute distress, patient oriented x3 and healthy appearing HENMT: COMMON NORMALS: normocephalic and atraumatic HEAD & SCALP: normocephalic and atraumatic Eye: COMMON NORMALS: conjunctivae normal CONJUNCTIVA: Yes conjunctivae normal Neck/C-Spine: COMMON NORMALS: full ROM and supple Chest: COMMONS NORMALS: normal inspection of the chest Resp: COMMON NORMALS: normal respiratory effort Cardio: COMMON NORMALS: regular rate RATE: regular rate Extremity: COMMON NORMALS: full ROM Neuro: COMMON NORMALS: patient oriented x3, moves all extremities and no focal motor deficits Psych: COMMON NORMALS: mental status grossly normal, Normal thought process present and cooperative THOUGHT PROCESS: Normal thought process present Skin: NARRATIVE SKIN EXAM: Small area of cellulitis noted to right posterior upper arm no abscess formation distal pulses sensation intact Course Vital Signs: Vital signs: Vital Signs Temperature 97.7 F 10/13/24 20:04 Pulse Rate 90 10/13/24 20:04 Respiratory Rate 16 10/13/24 20:04 Blood Pressure 108/67 10/13/24 20:04 Pulse Oximetry 91 10/13/24 20:04 Oxygen Delivery Me thod Room Air 10/13/24 20:04 MDM - Wound/Laceration Medical Decision Making Patient presents here cellulitis to her right arm we will start her on Keflex she is well-appearing here nonseptic appearing. She is to follow-up with PCP and return if worsening. No radiology studies performed this visit Discharge Plan Discharge Patient Disposition: Home Clinical Impression: Cellulitis Condition: Stable Prescriptions: New cephalexin 500 mg capsule 500 mg PO TID 7 Days Qty: 21 0RF No Action rosuvastatin 40 mg tablet 40 mg PO DAILY@20 (DME) Diabetic Shoes See Rx Instructions .Route .MEDSUPPLY Qty: 1 0RF Rx Instructions: As directed ondansetron 4 mg tablet,disintegrating 4 mg PO Q6H PRN (Reason: nausea and vomiting) Qty: 14 0RF mirabegron [Myrbetriq] 25 mg tablet extended release 24 hr 25 mg PO DAILY@0700 promethazine-DM 6.25-15 mg/5 mL Syrup 5 ml PO Q6H PRN (Reason: Cough) fluoride (sodium) [SF 5000 Plus] 1.1 % Cream See Rx Instructions .ROUTE .COMPLEX Rx Instructions: [place] on teeth twice daily with use of regular tooth paste do not eat or drink 30 mins after (use at 07:00 & 20:00) aspirin 81 mg tablet,delayed release (DR/EC) 81 mg PO DAILY@07 loperamide 2 mg Tablet 2 mg PO QID PRN (Reason: Diarrhea) pantoprazole 40 mg tablet,delayed release (DR/EC) 40 mg PO DAILY@07 Debrox 6.5 % Drops 10 drp otic (ear) Q30D Rx Instructions: ON THE OF EACH MONTH. roflumilast [Daliresp] 500 mcg tablet 500 mcg PO DAILY@0700 Trelegy Ellipta 100-62.5-25 mcg blister with device 1 inh inhalation DAILY@07 acetaminophen [Tylenol Extra Strength] 500 mg Tablet 500 mg PO Q6H PRN (Reason: Pain) magnesium hydroxide [Milk of Magnesia] 400 mg/5 mL Suspension 30 ml PO DAILY PRN (Reason: Constipation) Rx Instructions: IF NO BM FOR 3 DAYS gabapentin 300 mg capsule 300 mg PO BID@0700,2000 bisacodyl [Dulcolax (bisacodyl)] 5 mg Tablet,Delayed Release (Dr/Ec) 10 mg PO DAILY PRN (Reason: Constipation) melatonin 5 mg Tablet 5 mg PO BEDTIME@2000 venlafaxine 75 mg Capsule,Extended Release 24hr 75 mg PO DAILY@0700 Saline Nasal 0.65 % Aerosol,[place] See Rx Instructions .ROUTE .COMPLEX Rx Instructions: SQUEEZE INTO DRY NOSTRILS TWICE DAILY THEN FOLLOW WITH BACTROBAN. USE AT 0700 AND 2000 levetiracetam 500 mg tablet See Rx Instructions .ROUTE .COMPLEX Rx Instructions: TAKE 500 MG BY MOUTH IN THE MORNING AND 1,000 MG IN THE PM nystatin 100,000 unit/gram powder 1 applic topical BID PRN (Reason: Skin Irritation) Ozempic 1 mg/dose (4 mg/3 mL) pen injector 1 mg SUBCUT Q7D Rx Instructions: MONDAYS hydrocortisone 1 % Cream 1 applic TOPICAL TID PRN (Reason: Skin Irritation) fluticasone propionate 50 mcg/actuation spray,suspension 1 spray INTRANASAL QAM hydroxyzine pamoate 25 mg capsule 25 mg PO Q8H PRN (Reason: Anxiety) L.acidoph,saliva-B.bif-S.therm [Acidophilus Probiotic Blend] 175 mg Capsule 1 cap PO QPM ammonium lactate 12 % cream 1 applic topical BEDTIME albuterol sulfate 90 mcg/actuation HFA aerosol inhaler 2 inh INHALATION Q4H PRN (Reason: shortness of breath or wheezing) Qty: 18 0RF insulin lispro [Humalog KwikPen Insulin] 100 unit/mL Insulin Pen See Rx Instructions .ROUTE .COMPLEX Rx Instructions: inject subq per sliding scale as follows: bs 201-250=2 units, 251-300=4 units, 301-350=6 units, 351-400=8 units. Max dose 24 units daily miconazole nitrate 2 % Cream 1 applic TOPICAL BID ibuprofen 200 mg Tablet 24,000 mg PO Q6H PRN (Reason: Pain) Natural Fiber Powder 1 tbsp PO BID [place] Cough Drops 3.2 mg Lozenge 3.2 mg MUCOUS MEMBRANE Q2H PRN (Reason: Cough) Biofreeze 0.2-3.5 % Gel 1 applic TOPICAL BID PRN (Reason: Muscle Pain) Rx Instructions: rub in gently and completely bumetanide 0.5 mg tablet 0.5 mg PO DAILY@07 ipratropium-albuterol 0.5 mg-3 mg(2.5 mg base)/3 mL Solution For Nebulization 3 ml INHALATION Q4H PRN (Reason: Shortness Of Breath) carboxymethylcellulose sodium [Refresh Tears] 0.5 % Drops 1 - 2 drp ophthalmic (eye) QID PRN (Reason: Dry Eye(S)) clotrimazole 1 % Cream See Rx Instructions .ROUTE .COMPLEX Rx Instructions: Apply topically to scales in right foot (toes) at bedtime. cholecalciferol (vitamin D3) [Vitamin D3] 50 mcg (2,000 unit) Capsule 50 mcg PO DAILY@07 Jardiance 25 mg Tablet 25 mg PO DAILY@07 lidocaine 5 % Adhesive Patch,Medicated 1 patch TOPICAL DAILY PRN (Reason: Pain) Rx Instructions: leave on most painful area for up to 12 hrs then off for 12 hours PreserVision AREDS 14,320-226-200 rbhq-bu-lryy capsule 1 cap PO BID@07,19 insulin degludec [Tresiba FlexTouch U-100] 100 unit/mL (3 mL) Insulin Pen 10 unit SUBCUT BEDTIME Discharge Orders: Discharge ED (Routine); Ordered 10/13/24 Ordered By: Devorah Agee Referrals: Tashi Acosta MD [Primary Care Provider, Family Practice] Discharge Diet: Advance as tolerated Discharge Activity: Resume usual activity Patient Instructions: Cellulitis (ED) Print Language: Japanese Coding Level of Care Code ED Vfx Artist for Kanchan Abdi
[2024-10-13 20:26] VITALS: BP 100/81; PULSE 82; RESP 16; O2SAT 91
== END 2024-10-13 20:28 | disposition home or self-care (01) ==
PROVIDERS: Emergency Provider Emergency Medicine; PCP Family Medicine
DX: L03.113 Cellulitis of right upper limb (principal); Z79.82 Long term (current) use of aspirin; Z79.4 Long term (current) use of insulin; J44.9 Chronic obstructive pulmonary disease, unspecified; E78.5 Hyperlipidemia, unspecified; E11.9 Type 2 diabetes mellitus without complications; I11.0 Hypertensive heart disease with heart failure; I50.30 Unspecified diastolic (congestive) heart failure
CPT/HCPCS: 99283; J9999

== ENCOUNTER → 2024-11-26 12:59 | Outpatient (BNVA) | payer OTHER, MEDICAID, SELFPAY | PROVIDERS: PCP Family Medicine; Visit Provider Surgery | DX: D17.21 Benign lipomatous neoplasm of skin and subcutaneous tissue of right arm (principal) | CPT/HCPCS: 99214 ==

== ENCOUNTER 2024-12-08 10:02 | Day surgery (SDC) | payer OTHER, MEDICAID, SELFPAY ==
[2024-12-08] VITALS (10 sets, daily range): BP systolic 117–131; BP diastolic 51–84; PULSE 66–93; RESP 14–24; TEMP 36.3–37.2; O2SAT 90–98; BMI 41.2
[2024-12-08 11:09] LABS: Hematocrit 48.3 % (36-47); Hemoglobin 15.00 g/dL (11.27-16.99); Mean Corpuscular HGB Conc 31.1 g/dL (30-55); Mean Corpuscular Hemoglobin 26.8 pg (27-33); Mean Corpuscular Volume 86.4 fl (85-98); Nucleated Red Blood Cells % 0 %; Platelet Count 167 10^3/cmm (157-399); Red Blood Count 5.59 10^6/uL (3.85-5.65); White Blood Count 7.03 10^3/uL (3.29-11.43)
--- NOTE | 2024-12-08 11:32 | ANES.PREANE2 ---
Pre-Anesthetic Assessment Height/Weight: Height 1.42 m Weight 83.461 kg Temp Pulse Resp BP Pulse Ox O2 Del Method 97.9 F 77 18 129/75 90 Room Air 12/08/24 10:12/08/24 10:12/08/24 10:12/08/24 10:12/08/24 10:20 12/08/24 10:56 Operation Date: 12/08/24 11:45 Proposed Procedures p Excision Mass RIGHT Upper Extremity 43924 D17.9(Right) - Yordy Hughes MD Familial anesthetic complications: none Was Beta Alvaro taken within 24 hours: N/A Was Clonidine taken within 24 hours: N/A Last intake: Intake Last Liquid Date 12/07/24 Last Liquid Time 23:30 Last Solid Date 12/07/24 Last Solid Time 16:00 Social Tobacco and No alcohol Exam alert, oriented x 3, clear to auscultation bilaterally and regular rate & rhythm Pulmonary Chronic Obstructive Pulmonary Disease CV/HEM Arrythmia, Congestive Heart Failure, Hypertension and Peripheral Vascular Disease TVr Metabolic Hyperlipidemia and Morbid Obesity Anesthetic Plan ASA status: 4 Anesthesia: General Risk of > 500 ml blood loss (7ml/kg in children): No Medications/Allergies Home Medications ?Medication ?Instructions ?Recorded ?Confirmed ?Last Taken ?Type acetaminophen 500 mg tablet 500 mg PO Q6H PRN Pain 05/16/19 12/05/24 11/08/20 History (Tylenol Extra Strength) bisacodyl 5 mg tablet,delayed 10 mg PO DAILY PRN Constipation 05/16/19 12/08/24 12/05/24 History release (Dulcolax (bisacodyl)) carbamide peroxide 6.5 % ear drops 10 drp otic (ear) Q30D 05/16/19 12/08/24 11/05/24 History (Debrox) fluticasone fur. 100 mcg-umeclid 1 inh inhalation DAILY@05/16/19 12/08/24 12/06/24 History 62.5 mcg-vilant 25 mcg inhalat.powder (Trelegy Ellipta) gabapentin 300 mg capsule 300 mg PO BID@0700,199905/16/19 12/08/24 12/07/24 History melatonin 5 mg tablet 5 mg PO BEDTIME@199905/16/19 12/08/24 12/07/24 History roflumilast 500 mcg tablet 500 mcg PO DAILY@0700 05/16/19 12/08/24 12/07/24 History (Daliresp) sodium chloride 0.65 % nasal spray See Rx Instructions .Route .COMPLEX 05/31/19 12/05/24 12/05/24 History aerosol (Saline Nasal) levetiracetam 500 mg tablet See Rx Instructions .Route .COMPLEX 06/03/19 12/08/24 12/07/24 History ondansetron 4 mg disintegrating 4 mg PO Q6H PRN nausea and 01/30/20 12/08/24 12/07/24 Rx tablet vomiting #14 tabs t mirabegron 25 mg tablet,extended 25 mg PO DAILY@0700 10/28/20 12/08/24 04/22/24 History release 24 hr (Myrbetriq) promethazine-DM 6.25 mg-15 mg/5 mL 5 ml PO Q6H PRN Cough 10/28/20 12/08/24 Unknown History oral syrup aspirin 81 mg tablet,delayed 81 mg PO DAILY@12/09/20 12/08/24 12/05/24 History release loperamide 2 mg tablet 2 mg PO QID PRN Diarrhea 12/09/20 12/08/24 Unknown History rosuvastatin 40 mg tablet 40 mg PO DAILY@09/08/21 12/08/24 12/07/24 History Diabetic Shoes #1 ea 11/03/21 11/26/24 Unknown Rx bumetanide 0.5 mg tablet 0.5 mg PO DAILY@07 01/05/22 12/08/24 12/07/24 History carboxymethylcellulose sodium 0.5 1 - 2 drp ophthalmic (eye) QID PRN 01/05/22 12/08/24 12/07/24 History % eye drops (Refresh Tears) Dry Eye(S) clotrimazole 1 % topical cream See Rx Instructions .Route .COMPLEX 01/05/22 12/08/24 12/05/24 History ipratropium 0.5 mg-albuterol 3 mg 3 ml inhalation Q4H PRN Shortness 01/05/22 12/08/24 12/07/24 History (2.5 mg base)/3 mL nebulization Of Breath soln cholecalciferol (vitamin D3) 50 50 mcg PO DAILY@07 07/09/22 12/08/24 12/07/24 History mcg (2,000 unit) capsule (Vitamin D3) empagliflozin 25 mg tablet 25 mg PO DAILY@07/09/22 12/08/24 12/07/24 History (Jardiance) insulin degludec 100 unit/mL (3 10 unit SUBCUT BEDTIME 07/09/22 12/08/24 12/07/24 History mL) subcutaneous pen (Tresiba FlexTouch U-100 insulin) lidocaine 5 % topical patch 1 patch topical DAILY PRN Pain 07/09/22 12/08/24 12/05/24 History vitamins A,C,E-spvu-otvarf 4,296 1 cap PO BID@07/09/22 12/08/24 12/07/24 History mcg-226 mg-90 mg capsule (PreserVision AREDS) nystatin 100,000 unit/gram topical 1 applic topical BID PRN Skin 01/21/23 12/08/24 Unknown History powder Irritation semaglutide 1 mg/dose (4 mg/3 mL) 1 mg SUBCUT Q7D 01/21/23 12/08/24 12/01/24 History subcutaneous pen injector (Ozempic) L.acidophil,salivari-Bifido 1 cap PO QPM 09/20/23 12/05/24 12/05/24 History bifidum-Strep thermoph 175 mg capsule (Acidophilus Probiotic Blend) ammonium lactate 12 % topical cream 1 applic topical BEDTIME 09/20/23 12/05/24 12/05/24 History fluticasone propionate 50 1 spray intranasal QAM 09/20/23 12/08/24 12/07/24 History mcg/actuation nasal spray,suspension hydroxyzine pamoate 25 mg capsule 25 mg PO Q8H PRN Anxiety 09/20/23 12/08/24 12/07/24 History albuterol sulfate 90 mcg/actuation 2 inh inhalation Q4H PRN shortness 03/22/24 12/05/24 12/05/24 Rx aerosol inhaler of breath or wheezing #18 grams camphor-menthol 0.2 %-3.5 % 1 applic topical BID PRN Muscle 04/22/24 12/08/24 Unknown History topical gel Pain ibuprofen 200 mg tablet 24,000 mg PO Q6H PRN Pain 04/22/24 12/08/24 Unknown History insulin lispro 100 unit/mL See Rx Instructions .Route .COMPLEX 04/22/24 12/08/24 12/07/24 History subcutaneous pen (Humalog KwikPen (U-100) Insulin) menthol 3.2 mg lozenges ([place] 3.2 mg mucous membrane Q2H PRN 04/22/24 12/05/24 Unknown History Cough Drops) Cough miconazole nitrate 2 % topical 1 applic topical BID 04/22/24 12/05/24 Unknown History cream Allergies Allergy/AdvReac Type Severity Reaction Status Date / Time metformin Allergy ADR-Dry Verified 12/08/24 10:27 Mucus Membranes Penicillins Allergy ALGY-Anaphy Verified 12/08/24 10:27 laxis Sulfa (Sulfonamide Allergy ALGY-Anaphy Verified 12/08/24 10:27 Antibiotics) laxis Current Medications Generic Name Dose Route Start Last Admin Trade Name Freq PRN Reason Stop Dose Admin Sodium Chloride 1,000 mls @ 30 mls/hr 12/08/24 10:15 12/08/24 11:18 Sodium Chloride 0.9% IV 12/09/24 10:14 30 mls/hr .Q24H MARCO Administration PFSH Anesthesia Medical History Acute exacerbation of chronic obstructive airways disease T12 vertebral fracture Small bowel obstruction Benign essential hypertension with target blood pressure below 140/90 Restrictive lung disease Chronic respiratory failure with hypoxia and hypercapnia Sleep apnea Obesity hypoventilation syndrome Acute on chronic diastolic (congestive) heart failure Nonischemic cardiomyopathy Moderate to severe mitral regurgitation Depression Seizure disorder Hyperlipidemia Type 2 diabetes mellitus Hypertension Obstructive sleep apnea Tricuspid regurgitation Obesity COPD (chronic obstructive pulmonary disease) Diastolic congestive heart failure Pulmonary hypertension Surgical History Ulnar nerve compression History of H/O mitral valve replacement Family History Brother CAD (coronary artery disease) Sister CAD (coronary artery disease) Grandmother Diabetes Mother Stroke Denies family history of Clotting disorder Dementia Chronic kidney disease (CKD) Suicide Anesthesia complication Bleeding disorder Lung disease Cancer Social History Smoking and tobacco/nicotine status: never used tobacco/nicotine Second hand smoke exposure: Yes Alcohol intake: never Substance/Drug Use: never Caregiver/support person: Yes Lives independently: No Housing: Assisted Living Facility Marital status: / Current occupational status: retired and disabled Do you think of yourself as: Straight/Heterosexual Current gender identity: Female Data Anesthesia 12/08/24 11:00 12/08/24 11:00 Short CBC 12/08/24 Range/Units 11:00 WBC 7.03 (3.29-11.43) 10^3/uL Hgb 15.00 (11.27-16.99) g/dL Hct 48.3 H (36-47) % MCV 86.4 (85-98) fl Plt Count 167 (157-399) 10^3/cmm Neut % (Auto) 63.3 % Neut # (Auto) 4.45 (1.8-7.7) 10^3/uL Cardiac Studies: Echocardiogram 02/26/22 Echocardiogram Ultrasound 05/17/19 Transesophageal Echocardiogram 05/19/19 Holter Monitor 09/01/20
--- NOTE | 2024-12-08 12:14 | P.HPUD_ITS ---
Surgery/Procedure H&P Update DATE OF PROCEDURE: December 08, 2024 DATE H&P PERFORMED: 11/26/24 H&P UPDATE INFORMATION: I have reviewed H&P completed within last 30 days, I have examined patient prior to procedure, No changes to prior documentation, Changes to prior documentation as noted here and Risks and benefits of the procedure reviewed PLANNED PROCEDURE: Operation Date: 12/08/24 11:45 Proposed Procedures p Excision Mass RIGHT Upper Extremity 20584 D17.9(Right) - Yordy Hughes MD
--- NOTE | 2024-12-08 12:15 | P.HPUD_ITS ---
Surgery/Procedure H&P Update DATE OF PROCEDURE: December 08, 2024 DATE H&P PERFORMED: 11/26/24 H&P UPDATE INFORMATION: I have reviewed H&P completed within last 30 days, I have examined patient prior to procedure, No changes to prior documentation, H&P is in [facility] EMR on date indicated and Risks and benefits of the procedure reviewed PLANNED PROCEDURE: Operation Date: 12/08/24 11:45 Proposed Procedures p Excision Mass RIGHT Upper Extremity 19021 D17.9(Right) - Yordy Hughes MD
[2024-12-08 12:43] LABS: Alanine Aminotransferase 12 U/L (0-33); Albumin Level 4.3 g/dL (3.5-5.2); Alkaline Phosphatase 149 U/L (35-105); Anion Gap 15.8 (5-19); Aspartate Amino Transferase 15 U/L (0-32); Blood Urea Nitrogen 22 mg/dL (8-23); Calcium 10.1 mg/dL (8.5-10.5); Carbon Dioxide 30 mmol/L (22-29); Chloride 101 mmol/L (98-107); Creatinine Clr Calc Pharmacy 84.9824; Globulin 2.9 g/dL (1.3-4.6); Glucose 128 mg/dL (65-115); Osmolality Calculated 299 mOsm/kg (285-295); Potassium 4.8 mmol/L (3.5-5.1); Sodium 142 mmol/L (136-145); Total Protein 7.2 g/dL (6.6-8.7)
[2024-12-08] MEDS: BUPivacaine 0.25% INJ 10 mL 3 ML INJECTION (13:15)
[2024-12-08] MEDS: lidocaine-epi 1% 20 mL INJ 3 ML INJECTION (13:15)
--- NOTE | 2024-12-08 13:28 | P.OP_ITS ---
Operative Report Date of procedure: December 08, 2024 Pre-op diagnosis: Right upper extremity subcutaneous mass Post-op diagnosis: Same Post-op findings: There was a 2 x 2 cm subcutaneous lipomatous lesion of the right arm Procedure done: Excision of right upper extremity mass measuring 2 x 2 cm Specimens removed/disposition: Right upper extremity mass Surgeon: Yordy Hughes MD [employer]gun [employer] Loading Machine Operator: JULIANA OR Staff Estimated blood loss: 5 Brief History: 69-year-old female who presents with a possible lipoma of the right upper extremity due to pain and increased size we have decided to proceed to the OR for excision. Procedure: The patient was brought into the OR, she was placed in a supine position. Monitored anesthesia care was initiated. The right upper extremity was prepped and draped in usual sterile fashion. A timeout was conducted. I proceeded to identify the lesion in the medial aspect of the arm, local anesthesia was infiltrated on top. I then made a 2.5 cm incision overlying the lesion. Incision was deepened until the lesion was identified. The lesion was dissected from the surrounding tissue using a hemostat. The lesion was delivered through the skin and the pedicle was taken down using electrocautery. Hemostasis was verified. The wound was irrigated with saline. The wound was closed in layers using #3-0 Vicryl for the subcutaneous tissue and #4-0 Monocryl for the skin. Dermabond was applied. At the end of the procedure all counts were correct the patient tolerated well the procedure was transferred to the PACU in stable condition.
--- NOTE | 2024-12-08 14:50 | ANE.PACU2 ---
Inpatient post-anesthesia follow up: Airway intact: Yes Vital signs: Temperature 98.0 F Pulse Rate 69 Respiratory Rate 18 Blood Pressure 124/53 Pulse Oximetry 95 Oxygen Delivery Me thod Nasal Cannula Oxygen Flow Rate 2 Fraction of Inspir ed Oxygen Hydration adequate: Yes Nausea and vomiting: No Pain level: 1 Mental status: Baseline
== END 2024-12-08 14:50 | disposition home or self-care (01) ==
PROVIDERS: Anesthesiology; PCP Family Medicine; Visit Provider Surgery
PROC: (CPT 24075; principal; 2024-12-08 11:35)
DX: R22.31 Localized swelling, mass and lump, right upper limb (principal); J44.9 Chronic obstructive pulmonary disease, unspecified; I49.9 Cardiac arrhythmia, unspecified; I11.0 Hypertensive heart disease with heart failure; I50.9 Heart failure, unspecified; G47.33 Obstructive sleep apnea (adult) (pediatric); E66.9 Obesity, unspecified; Z68.41 Body mass index [BMI] 40.0-44.9, adult; E78.5 Hyperlipidemia, unspecified; E11.9 Type 2 diabetes mellitus without complications; R56.9 Unspecified convulsions; Z79.82 Long term (current) use of aspirin; Z79.4 Long term (current) use of insulin; K21.9 Gastro-esophageal reflux disease without esophagitis
CPT/HCPCS: 24075; 36416; 80053; 82962; 85025; 88307; J2704; J3490; J7030; J9999

== ENCOUNTER → 2024-12-30 09:03 | Outpatient (BNVA) | payer OTHER, MEDICAID, SELFPAY | PROVIDERS: PCP Family Medicine; Visit Provider Surgery | DX: D17.21 Benign lipomatous neoplasm of skin and subcutaneous tissue of right arm (principal) | CPT/HCPCS: 99024 ==

== ENCOUNTER 2025-01-15 12:35 | Outpatient (CLI) | payer OTHER, MEDICAID, SELFPAY ==
--- NOTE | 2025-01-15 12:42 | MM_ITS ---
WS: [id number] RIGHT 3D TOMOSYNTHESIS DIGITAL MAMMOGRAPHY WITH CAD CLINICAL INFORMATION: MASS OF UPPER OUTER QUAD OF R BREAST HISTORY: Additional views COMPARISON: 06/07/2023 TECHNIQUE: 3 views of the right breast were obtained. FINDINGS: Scattered fibroglandular densities of the right breast. Palpable marker 12 o'clock position RIGHT breast. No suspicious underlying mammographic abnormalities. Ultrasound described below. ULTRASOUND BREAST RIGHT TECHNIQUE: Ultrasound right breast focused area of concern. CLINICAL INFORMATION: MASS OF UPPER OUTER QUAD OF R BREAST FINDINGS: Ultrasound RIGHT breast patient directed at the 12 o'clock position 12 cm from the nipple. Lobulated mixed density lipomatous tissue deep to the palpable marker. Somewhat ill-defined lipoma measuring 4.0 x 1.3 cm corresponds to the area of palpable concern. No suspicious findings to target for biopsy. MM/MM diag RT tomosynthesis [id number] IMPRESSION: DENSITY: There are scattered areas of fibroglandular density. BI-RADS: 2 - Benign. FOLLOW UP: 1 Year Follow-up Recommend return to annual screening mammography.
== END 2025-01-15 12:36 | disposition home or self-care (01) ==
PROVIDERS: PCP Family Medicine; Visit Provider Family Medicine
DX: N63.11 Unspecified lump in the right breast, upper outer quadrant (principal); R92.321 Mammographic fibroglandular density, right breast
CPT/HCPCS: 76642; 77061; G0279

== ENCOUNTER 2025-03-11 10:19 | Emergency (ER) | payer MEDICARE, MEDICAID, SELFPAY ==
--- NOTE | 2025-03-11 10:22 | XR_ITS ---
WS: [id number] Portable AP upright chest, 03/11/2025 Clinical Data: Shortness of breath Comparison: PA and screw Portable chest, 09/28/2024 Findings: No nodules, masses or effusions are seen. The heart is normal. The pulmonary vascularity is not increased. No pneumonia or pneumothorax is seen. The aortic arch and descending thoracic aorta show mild tortuosity. XR/XR chest 1V portable [id number] Impression: Atherosclerosis.
--- OUTSIDE RECORDS SUMMARY | 2025-03-11 10:25 | XMS_ITS | Data Portability ---
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 I recommend no other change sat this time. [email or web address] Not available 02/24/2025 13:14:48 Plan of Treatment Reminders Order Date Submit Date Provider Last Modified By Organization Details Last Modified Time Details Appointments None recorded. Lab None recorded. Referral None recorded. Procedures None recorded. Surgeries None recorded. Imaging DEXA 2024 025 [facility] Orders, [address] [place], [address], 14:59:47 MAMMO, screening, digital, bilateral 2024 025 [facility] [employer] Orders, [address] [place], [address], 14:33:37 US, breast, unilateral 2024 025 [facility] [employer], [address] [place], [address], 12:28:59 Medication Orders Contour Next Test Strips 2024 025 [facility], [address] [place], [address], 5 10:57:05 ondansetron 4 mg disintegrat ing tablet 2024 025 [facility], [address] [place], [address], 5 15:09:53 Patient TargetsNo targets recorded. Patient InstructionsNo instructions recorded. Reason for Referral None Reported. Results Created Date Observation Date Name Description Value Unit Range Abnormal Flag Note LastModifiedBy Organization Detail LastModifiedTime 11/11/1911/04/2024 US, upper arm No observ ation record ed. [email or web address] [facility] ([facility]) [address] [place], [address], 11/21/2024 11:54:36 01/16/20 25 01/15/2025 US, breas t, unila teral No observ ation record ed. [facility] [address] [place], [address], 01/16/2025 11:22:54 01/16/2001/15/2025 MAMMO , diagn ostic , digit al, unila teral No observ ation record ed. [address] [place], [address], 01/30/2025 08:18:01 Result Notes None recorded. Problems Name Problem SNOMED Code Status Onset Date Resolution Date Notes Provider Name and Address Organization Details Recorded Time section Completed 201807/13/2018 c-sectio n x 2 - Status is Inactive ; 07/14/19 4:19PM by Enid Galicia CMT, August on/Adden dum; Promoted ; acuity set as *; Not Available [facility] 3 03:15:56 Arthropa thy [id number] Completed 201807/13/2018 arthriti s - Status is Inactive ; 07/14/19 4:19PM by Enid Frida, CMT, Annotati on/Adden dum; Promoted ; acuity set as *; Not Available [employer] 3 03:15:58 Pain of joint of knee 1737712898 Active 2022 Chronic Knee Osteoart hritis CRIS LOCKE null, [facility] 5 08:16:19 Anxiety disorder 329185477 Active 2022 CRIS LOCKE null, [facility] 5 08:16:03 Depressi ve disorder 98042119 Active 2022 CRIS LOCKE null, [facility] 5 08:16:03 Chronic post-tra umatic stress disorder 009260849 Active 2022 PTSD CRIS hubbard, [facility] 5 08:16:03 Peripher al vascular disease 346653613 Active 2022 CRIS LOCKE null, [facility] 3 15:30:17 Seizure disorder 254043522 Active 2022 CRIS hubbard, [facility] 3 15:30:13 Morbid obesity 330741464 Active 2022 CRIS hubbard, [facility] 3 15:30:10 Congesti ve heart failure 89126520 Active 2022 CRIS LOCKE null, [facility] 3 15:29:16 Hyperven tilation 37811946 Active 2022 obesity hyperven tilation syndrome CRIS LOCKE null, [facility] 3 15:30:07 History of attempte d suicide [id number] Completed 202208/22/2024 CRIS hubbard, [facility] 5 09:45:02 Congenit al dysplasi a of cardiac valve 237060247 Active 2022 mitral valve CRIS CHUCKY hubbard, [facility] 3 15:31:33 Obstruct alejandrina sleep apnea syndrome 85753626 Active 2022 CRIS hubbard, [facility] 3 15:32:21 Neuropat hy due to diabetes mellitus 657423020 Active 2022 CRIS hubbard, [facility] 3 15:32:37 Chronic obstruct alejandrina pulmonar y disease 75305499 Active 2022 CRIS hubbard, [facility] 3 15:32:49 Osteopor osis 21806684 [facility] 20[facility] 08:16:03 Clostrid ium difficil e colitis 697571377 Completed 202308/22/2024 hx of CRIS hubbard, [facility] 5 09:45:02 Vitamin D deficien cy 66616546 Active 2023 CRIS hubbard, [facility] 5 08:16:03 Type 2 diabetes mellitus 08901142 Active 2023 CRIS hubbard, [facility] 5 08:16:03 Insomnia 162418895 Active 2024 CRIS hubbard, [facility] 5 08:16:03 Chronic respirat ory failure 15910102 Active 2024 Julia Acosta MD [address] [place] [address], [phone] , [facility] 5 11:10:53 Hyperlip idemia 03258693 Active 2024 Julia Acosta MD [address] [place] [address], [phone] , [facility] 11:10:53 [facility] hyperten jamel 22731487 Active 2024 Julia Acosta MD [address] [place], [address] , [facility] 11:10:53 Nicotine dependen ce 59579834 Active 2024 CRIS hubbard, [facility] 5 09:44:52 Pulmonar y hyperten jamel 82370870 Active 2024 CRIS LOCKE null, [facility] 5 12:55:57 Pain in right arm 871756775 Active 2024 CRIS hubbard, [facility] 10:59:14 Lipoma of upper limb 002322570 Active 2024 CRIS hubbard, [facility] 10:59:57 Lump in upper outer quadrant of right breast 90889848530 4108 Active 2024 Jacque Rendon null, [facility] 08:24:49 Problem Notes None recorded. Procedures Surgical History Date Name Laterality Status Provider Name and Address Organization Details Recorded Time 5 screening for malignant neoplasm of colon completed CRIS LOCKE [facility] 10/03/2024 14:51:57 3 jr shave biopsy completed HEATHER ACOSTA PA-C [address] [place] [address], [phone], [facility], Freddie 09/20/2022 14:01:21 3 mammography completed [facility], Freddie 08/24/2022 08:26:06 2 screening for malignant neoplasm of colon completed CRIS LOCKE [facility], Freddie 11/17/2022 16:25:23 1 diabetic retinal eye exam completed [facility], Freddie 08/24/2022 08:27:41 1 bone density scan completed [facility], Freddie 08/24/2022 08:28:12 Imaging Results None recorded. Procedure Notes None recorded. Medical Equipment None Reported. Allergies Allergen ID Allergen Name Allergen Category Reaction Reaction Severity Criticality Documentation Date Start Date Code Code System Note Provider Name and Address Organization Details Recorded Time 2359 Product containin g penicilli n (product) medicatio n edema moderate low 07/17/2022 82400 8001 SNOMED [facility] 4 15:42:14 2360 Substance with sulfonami de structure and antibacte rial mechanism of action (substanc e) medicatio n edema moderate low 07/17/2022 17973 8003 SNOMED [facility] 4 15:42:18 2361 metformin medicatio n Not available Not available Not available 07/17/2022 6809 RxNorm Jacque Rendon [facility] 3 12:04:56 19255 Bactrim medicatio n edema Not available Not available 10/14/2022 42947 9 RxNorm React ion: Edema ; Comme nt: Recor ded 05/19 8:19A M by Safia Zaragoza on, [employer], Offic e Visit ; Promo frida; Signi antonio ce: *; Reaso n: Drug aller gy; ; [facility] 3 16:21:32 79239 penicilli n V potassium medicatio n edema Not available Not available 10/14/2022 5 RxNorm React ion: Edema ; Comme nt: Recor ded 05/19 8:19A M by Safia Zaragoza on, [employer], Offic e Visit ; Promo frida; Signi antonio ce: *; Reaso n: Drug aller gy; ; [facility] 3 16:21:39 Medications Name Sig Start Date Stop Date Status Note LastModified by Organization Details LastModified Time biofreeze pain relief gel, 3 ounce roll-on applicato r AAA bid 05/23 completed Not Available Not Available Not Available Refresh Tears 0.5 % eye drops instill ONE TO TWO drops into affected eye EVERY 2 HOURS NEEDED FOR dryness 2022 active Not Available Not Available Not Avai lable Preparati on H Hydrocort isone 1 % topical cream APPLY A THIN LAYER TO THE AFFECTED AREA(S) BY TOPICAL ROUTE 3 TIMES PER DAY prn 2023 active Not Available Not Available Not Avai lable pioglitaz one 15 mg tablet 09/12 completed Not Available Not Available Not Available terbinafi ne HCl 1 % topical cream APPLY TO THE AFFECTED AREA(S) TWICE DAILY UNTIL HEALED WASH AND TOWEL DRY AFFECTED AREA TWICE PER DAY active Not Available Not Available No t Available Saline Nasal Mist 0.65 % spray aerosol SQUEEZE INTO DRY NOSTRILS TWICE DAILY TO MOISTURI ZE, THEN FOLLOWIN G W/ BACTROBA N 2023 active Not Available Not Available Not Avai lable prednison e 10 mg tablet 05/26 completed Not Available Not Available Not Available venlafaxi ne ER 75 mg capsule,e xtended release 24 hr TAKE 1 CAPSULE BY MOUTH EVERY DAY FOR depressi on 2024 active Not Available Not Available Not Avai lable doxycycli ne hyclate 100 mg capsule Take 1 capsule twice a day by oral route for 7 days. 12/21 completed Not Available Not Available Not Available cefuroxim e axetil 250 mg tablet 05/23 completed Not Available Not Available Not Available ipratropi um 0.5 mg-albute rol 3 mg (2.5 mg base)/3 mL nebulizat ion soln USE ONE vial PER NEBULIZE R EVERY 4 HOURS NEEDED FOR SHORTNES S OF BREATH 2024 active Not Available Not Available Not Avai lable clindamyc in HCl 300 mg capsule Take 1 capsule 3 times a day by oral route for 7 days. 11/20 completed Not Available Not Available Not Available azithromy sebas 250 mg tablet TAKE 2 TABLETS (500 MG) BY ORAL ROUTE ONCE DAILY FOR 1 DAY THEN 1 TABLET (250 MG) BY ORAL ROUTE ONCE DAILY FOR 4 DAYS 10/07 completed Not Available Not Available Not Available miconazol e nitrate 2 % topical cream APPLY TO THE AFFECTED AREA(S) BY TOPICAL ROUTE 2 TIMES PER DAY PRN YEAST INFECTIO N 05/26 completed Not Available Not Available Not Available fluconazo le 150 mg tablet 1 dose now; may repeat in 1 week if sxs persist 05/26 completed Not Available Not Available Not Available levetirac etam 500 mg tablet TAKE ONE TABLET BY MOUTH EVERY MORNING AND TAKE TWO TABLETS BY MOUTH EVERY EVENING 2024 active Not Available Not Available Not Avai lable valacyclo vir 1 gram tablet Take 1 tablet 3 times a day by oral route for 7 days. 2024 active Not Available Not Available Not Avai lable hydrocodo ne 5 mg-acetam inophen 325 mg tablet Take 1 tablet every 6-8 hours by oral route for 4 days. 09/13 completed Not Available Not Available Not Available Nystop 100,000 unit/gram topical powder APPLY TO THE AFFECTED AREA(S) topicall y NEEDED TWICE DAILY 05/26 completed Not Available Not Available Not Available ondansetr on HCl 4 mg tablet TAKE ONE TABLET BY MOUTH EVERY 6 HOURS NEEDED FOR nausea AND vomiting 2024 active Not Available Not Available Not Avai lable Monistat 7 2 % vaginal cream Insert 1 applicat orful every day by vaginal route for 7 days. 09/05 completed Not Available Not Available Not Available prednison e 20 mg tablet take two tablets daily for 5 days then 1 tablet daily for 4 days 06/26 completed Not Available Not Available Not Available aspirin 81 mg tablet,de layed release TAKE ONE TABLET BY MOUTH EVERY DAY 2024 active Not Available Not Available Not Avai lable tramadol 50 mg tablet up to once daily prn breakthr ough arthriti c pain 11/22 completed Not Available Not Available Not Available vancomyci n 125 mg capsule Take 1 capsule every 6 hours by oral route for 10 days. 05/26 completed Not Available Not Available Not Available meloxicam 7.5 mg tablet Take 1 tablet every day by oral route for 7 days. active Not Available Not Available No t Available Fleet Enema 19 gram-7 gram/118 mL USE ONE enema PER rectum EVERY DAY NEEDED *if no results from MILK of magnesia AND ducolax tablets* 2022 active Not Available Not Available Not Avai lable Ear Wax Removal Drops 6.5 % instill 10 drops BOTH ears ON THE of each MONTH EVERY DAY DAYS 1-5 2024 active Not Available Not Available Not Avai lable Tylenol 500 mg tablet prn pain active Not Available Not Available Not Available cephalexi n 500 mg capsule TAKE 1 CAPSULE BY MOUTH THREE TIMES DAILY FOR 7 DAYS 10/07 completed Not Available Not Available Not Available pantopraz ole 40 mg tablet,de layed release TAKE ONE TABLET BY MOUTH EVERY DAY FOR gerd 2024 active Not Available Not Available Not Avai lable bumetanid e 0.5 mg tablet TAKE ONE TABLET BY MOUTH EVERY DAY FOR HEART FAILURE 2024 active Not Available Not Available Not Avai lable triamcino lone acetonide 0.1 % topical ointment AAA Applicat ion to affected area two times daily 10/21 completed Not Available Not Available Not Available prednison e 50 mg tablet 06/26 completed Not Available Not Available Not Available lidocaine 5 % topical patch apply 1 PATCH topicall y NEEDED FOR PAIN (LEAVE ON FOR UP TO 12 HOURS ON most painful area) active Not Available Not Available No t Available gabapenti n 300 mg capsule take two po qhs and one po q a.m. and one po q mid day 2024 active Not Available Not Available Not Avai lable zinc gluconate 50 mg tablet TAKE ONE TABLET BY MOUTH EVERY DAY 12/21 completed Not Available Not Available Not Available lidocaine HCl 3 % topical cream APPLY TO THE AFFECTED AREA(S) BY TOPICAL ROUTE every two hours prn shingles painavoi d the eye 2024 active Not Available Not Available Not Avai lable ammonium lactate 12 % topical cream APPLY TO THE AFFECTED AREA(S) EVERY NIGHT AT BEDTIME 2024 active Not Available Not Available Not Avai lable triamcino lone acetonide 0.1 % lotion two times daily 11/17 completed Recorded 03/08/20 22 1:49PM by Jacque Nicholas RN, Office Visit; Refill Quantity : 0; Not Available Not Available Not Available levofloxa sebas 750 mg tablet TAKE ONE TABLET BY MOUTH EVERY DAY FIVE DAYS 01/31 completed Not Available Not Available Not Available methylpre dnisolone 4 mg tablets in a dose pack 11/17 completed Not Available Not Available Not Available albuterol sulfate HFA 90 mcg/actua tion aerosol inhaler INHALE 1 PUFF BY MOUTH EVERY 6 HOURS NEEDED FOR SHORTNES S OF BREATH active Not Available Not Available No t Available ondansetr on 4 mg disintegr ating tablet Place 1 tablet every 4-6 hours by translin gual route as needed, for nausea/v omiting. 2024 active Not Available Not Available Not Avai lable cefdinir 300 mg capsule 10/03 completed Not Available Not Available Not Available fluticaso ne propionat e 50 mcg/actua tion nasal spray,dexter pension USE ONE SPRAY IN EACH NOSTRIL EVERY DAY FOR ALLERGIE S 2024 active Not Available Not Available Not Avai lable clotrimaz ole 1 % topical cream APPLY topicall y TO THE scales ON right TOES 10/26 completed Not Available Not Available Not Available doxycycli ne hyclate 100 mg tablet 09/05 completed Not Available Not Available Not Available tobramyci n 0.3 %-dexamet hasone 0.1 % eye drops,edxter pension 10/21 completed Not Available Not Available Not Available oxycodone 5 mg tablet 09/05 completed Not Available Not Available Not Available hydroxyzi ne pamoate 25 mg capsule TAKE ONE CAPSULE BY MOUTH every 8 hours NEEDED 2024 active Not Available Not Available Not Avai lable Novolog FlexPen U-100 Insulin aspart 100 unit/mL (3 mL) subcutane ous per sliding scale before meals: 201-250: 2 units, 251-300: 4 units, 301-350: 6 units, 3427685: 8 units. Max dose 24 units/da y 2023 active Not Available Not Available Not Avai lable rosuvasta tin 40 mg tablet TAKE ONE TABLET BY MOUTH EVERY NIGHT AT BEDTIME 2024 active Not Available Not Available Not Avai lable lactulose 10 gram/15 mL oral solution 09/05 completed Not Available Not Available Not Available PreserVis ion AREDS 4,296 mcg-226 mg-90 mg capsule TAKE ONE CAPSULE BY MOUTH TWICE DAILY active Not Available Not Available No t Available ascorbic acid (vitamin C) two times daily 12/21 completed 0; Recorded 05/20/19 23 8:19AM by Cris Locke LPN, Office Visit; Not Available Not Available Not Available nystatin two times daily until rash healed and then prn for yeasty rash 11/17 completed 436; Recorded 09/01/19 21 3:54PM by Cris Locke LPN (Authori zed through Julia Acosta MD), Annotati on/Adden dum; Refill Quantity : 60; Gram; Not Available Not Available Not Available albuterol every 6 hrs prn 11/17 completed 0; Recorded 05/20/19 23 8:19AM by Cris Locke LPN, Office Visit; Not Available Not Available Not Available zinc daily 11/17 completed 436; Recorded 07/27/19 22 1:40PM by Cris Locke LPN (Authori zed through Julia Acosta MD), Refill Request; Refill Quantity : 30; Tablet; Not Available Not Available Not Available Diflucan today, repeat in 7 days 11/17 completed Recorded 03/27/19 12:53PM by Jacque Nicholas RN, Office Visit; Refill Quantity : 0; Not Available Not Available Not Available lancets three times daily 05/23 completed Not Available Not Available Not Available Aspirin EC daily 03/28 completed 436; Recorded 02/19/20 21 8:35AM by Cris Locke LPN (Authori zed through Julia Acosta MD), Office Visit; Refill Quantity : 0; Not Available Not Available Not Available bumetanid e every morning 11/17 completed 40025; Recorded 05/30/19 6:12PM by Yadira Craig (Authori zed through Dimitri Ruiz MD), Refill Request; Refill Quantity : 30; Tablet; Not Available Not Available Not Available venlafaxi ne daily 11/17 completed 436; Recorded 02/14/20 22 3:03PM by Cris Locke LPN (Authori zed through Julia Acosta MD), Refill Request; Refill Quantity : 30; Capsule; Not Available Not Available Not Available ipratropi um-albute rol q 4 hrs prn 11/17 completed 436; Recorded 03/24/19 21 3:22PM by Cris Locke LPN (Authori zed through Julia Acosta MD), Annotati on/Adden dum; Refill Quantity : 50; Vial; Not Available Not Available Not Available hydroxyzi ne pamoate every 8 hrs prn anxiety 10/24 completed Recorded 05/20/19 23 10:02AM by Julia Acosta MD, Annotati on/Adden dum; Refill Quantity : 30; Capsule; Not Available Not Available Not Available Acidophil us daily 11/17 completed 175mg daily; 436; Recorded 03/23/19 23 1:32PM by Cris Locke LPN (Authori ximena through Julia Acosta MD), Refill Request; Refill Quantity : 30; Tablet; Not Available Not Available Not Available naproxen sodium two times daily prn joint pain 12/21 completed Recorded 07/07/19 22 1:43PM by Cris Locke LPN, Office Visit; Refill Quantity : 60; Capsule; Not Available Not Available Not Available Vitamin D3 2000 units daily 01/20 completed Not Available Not Available Not Available calcitoni n (salmon) see note 11/17 completed one spray in one nostril once daily. alternat e nostrils on each use. use for 30 days then disconti nue; Recorded 05/28/19 3:17PM by Selena Nassar LPN, Office Visit; Refill Quantity : 0; Not Available Not Available Not Available Actos QD 11/17 completed 436; Recorded 07/27/19 22 1:39PM by Cris Locke LPN (Authori ximena through Julia Acosta MD), Refill Request; Refill Quantity : 15; Tablet; Not Available Not Available Not Available Refresh Liquigel to affected eye prn dryness 11/17 completed 0; Recorded 05/20/19 23 8:19AM by Cris Locke LPN, Office Visit; Not Available Not Available Not Available Novolog FlexPen U-100 Insulin per moderate sliding scale 11/17 completed 436; Recorded 04/11/19 23 10:34AM by Cris Locke LPN (Authori ximena through Julia Acosta MD), Refill Request; Refill Quantity : 1; Pre-fill ed Pen Syringe; Not Available Not Available Not Available Januvia 100 mg tablet 09/12 completed Not Available Not Available Not Available Stool Softener- Stimulant Laxative 8.6 mg-50 mg tablet TAKE ONE TABLET BY MOUTH EVERY DAY active Not Available Not Available No t Available Humalog KwikPen (U-100) Insulin 100 unit/mL subcutane ous active Not Available Not Available Not Available melatonin 5 mg tablet TAKE ONE TABLET BY MOUTH EVERY NIGHT AT BEDTIME FOR insomnia 2024 active Not Available Not Available Not Avai lable Acidophil us Probiotic Blend 175 mg capsule TAKE ONE CAPSULE BY MOUTH EVERY DAY 2024 active Not Available Not Available Not Avai lable Vitamin D3 50 mcg (2,000 unit) tablet TAKE ONE TABLET BY MOUTH EVERY DAY 2024 active Not Available Not Available Not Avai lable psyllium husk 3.4 gram/5.8 gram oral powder Take 15 g twice a day by oral route for 5 days. 2023 active Not Available Not Available Not Avai lable Prolia 60 mg/mL subcutane ous syringe Inject 1 mL by subcutan eous route as directed . 2024 active Not Available Not Available Not Avai lable Vitamin D3 50 mcg (2,000 unit) capsule Take 1 capsule every day by oral route. 2023 active Not Available Not Available Not Avai lable roflumila st 500 mcg tablet TAKE ONE TABLET BY MOUTH EVERY DAY FOR COPD 2024 active Not Available Not Available Not Avai lable Daliresp daily 11/17 completed 436; Recorded 11/23/19 22 9:33AM by Cris Locke LPN (Authori zed through Julia Acosta MD), Refill Request; Refill Quantity : 30; Tablet; Not Available Not Available Not Available OneTouch Verio test strips three times daily 11/17 completed DOC DM/sd; 436; Recorded 04/19/19 23 1:39PM by Jacque Nicholas RN (Authori zed through Julia Acosta MD), Refill Request; Refill Quantity : 100; Each; Not Available Not Available Not Available OneTouch Verio Mid Control solution USE TO check meter 11/21 completed Not Available Not Available Not Available Contour Next Test Strips Take 1 strip 4 times a day by miscell. route. 2024 active Not Available Not Available Not Avai lable Myrbetriq 25 mg tablet,ex tended release TAKE ONE TABLET BY MOUTH EVERY DAY FOR INCONTIN ENCE 2024 active Not Available Not Available Not Avai lable Jardiance 25 mg tablet TAKE ONE TABLET BY MOUTH EVERY DAY FOR diabetes 2024 active Not Available Not Available Not Avai lable Tresiba FlexTouch U-200 insulin 200 unit/mL (3 mL) subcutane ous pen inject 10 units SUBCUTAN EOUSLY At Bedtime active Not Available Not Available No t Available OneTouch Verio Flex Meter 11/21 completed Not Available Not Available Not Available TechLITE Pen Needle 31 gauge x /16 USE DIRECTED 2023 active Not Available Not Available Not Avai lable Trelegy Ellipta 100 mcg-62.5 mcg-25 mcg powder for inhalatio n USE ONE INHALATI ON EVERY DAY FOR COPD 2024 active Not Available Not Available Not Avai lable Ozempic 0.25 mg or 0.5 mg (2 mg/1.5 mL) subcutane ous pen injector 09/12 completed Not Available Not Available Not Available Ozempic weekly 11/17 completed 436; Recorded 02/02/20 12:51PM by Cris Locke LPN (Authori zed through Julia Acosta MD), Refill Request; Refill Quantity : 1; Each; Not Available Not Available Not Available OneTouch Delica Plus Lancet 30 gauge USE TO test blood sugar THREE TIMES A DAY; BEFORE MEALS AND AT BEDTIME 2024 active Not Available Not Available Not Avai lable Biofreeze (menthol) 5 % topical gel Apply and massage into sore muscles up to bid prn muscle pain 2023 active Not Available Not Available Not Avai lable Ozempic 1 mg/dose (4 mg/3 mL) subcutane ous pen injector Inject 1 MG UNDER THE SKIN ONCE WEEKLY 2024 active Not Available Not Available Not Avai lable Paxlovid 300 mg (150 mg x 2)-100 mg tablets in a dose pack take as directed on package 03/28 completed Not Available Not Available Not Available Dexcom G7 Quarter Backer USE as directed TO test blood sugars FOUR TIMES DAILY 2023 active Not Available Not Available Not Avai lable Dexcom G7 Sensor device USE as directed TO test blood sugar FOUR TIMES DAILY; change EVERY 10 days.; DOCUMENT ATION NOT NEEDED ON MAY 232024 active Not Available Not Available Not Avai lable Ozempic 0.25 mg or 0.5 mg (2 mg/3 mL) subcutane ous pen injector 09/12 completed Not Available Not Available Not Available Vitals Date Recorded Body height Body mass index (BMI) Body weight Oxygen saturation Heart rate Respiratory rate Body temperature Systolic And Diastolic Provider Name and Address Organization Details Last Updated DateTime 5 144.78 cm 40 kg/m2 04758.5 9 g 91 % 75 /min 16 /min 97.3 [degF] 102/63 mm[Hg] CRIS LOCKE [facility] 5 09:09:39 Date Recorded Body height Body mass index (BMI) Body weight Body temperature Heart rate Oxygen saturation Systolic And Diastolic Provider Name and Address Organization Details Last Updated DateTime 5 144.78 cm 41.3 kg/m2 40027.1 4 g 97 [degF] 78 /min 96 % 118/72 mm[Hg] Jacque Rendon [facility] 5 12:00:46 Date Recorded Body height Body mass index (BMI) Body weight Oxygen saturation Heart rate Body temperature Systolic And Diastolic Provider Name and Address Organization Details Last Updated DateTime 5 144.78 cm 41.1 kg/m2 24527.5 5 g 95 % 82 /min 98.2 [degF] 138/80 mm[Hg] Bria Corey [facility] 5 18:05:19 Date Recorded Body height Body mass index (BMI) Body weight Heart rate Systolic And Diastolic Provider Name and Address Organization Details Last Updated DateTime 02/20/2025 144.78 cm 40.5 kg/m2 15295.77 g 78 /min 113/66 mm[Hg] CRIS LOCKE [facility] 02/20/2025 08:43:09 Social History Question Answer Notes LastModified by Organizat ion Details LastModified Time Tobacco Smoking Status Current Every Day Smoker CRIS LOCKE null, [facility] 09/05/2022 15:33:40 What Was The Date Of Your Most Recent Tobacco Screening? 01/19/2025 [email or web address] Information not available 01/19/2025 Sex: Unknown Functional Status Question Answer Note LastModified by Organizat ion Details LastModified Time Do you use any illicit or recreational drugs? No [email or web address] Information not available 09/05/2022 Do you or have you ever used any other forms of tobacco or nicotine? No [email or web address] Information not available 11/17/2022 What is your level of alcohol consumption? None [email or web address] Information not available 09/05/2022 Mental Status None recorded. Family History Relationship Description Onset Age of this Age Resolved Age Notes LastModified by Organization Details LastModified Time Brother Coronary atherosclero sis [email or web address] Not available 11/17 16:24:45 Sister Coronary atherosclero sis [email or web address] Not available 11/17 16:24:45 Medical History No medical history recorded. Gynecological HistoryNo gynecological history recorded. Obstetrics History GPAL:G 0 P 0 0 0 0 Immunizations Vaccine Type Date Status Note Provider Nam e and Address Organization Details Recorded Time zoster live 5 completed Not Available [facility] 03/28/2023 09:01:37 zoster live 9 completed Not Available [facility] 03/28/2023 09:01:37 Tdap 5 completed Not Available [facility] 03/28/2023 09:01:37 zoster live 8 completed Not Available [facility] 03/28/2023 09:01:37 Influenza, split virus, trivalent, preservative 7 completed Not Available [facility] 03/28/2023 09:01:37 Influenza, split virus, trivalent, preservative 8 completed Not Available [facility] 03/28/2023 09:01:37 Pneumococcal conjugate PCV 13 7 completed Not Available [facility] 03/28/2023 09:01:37 Influenza, MDCK, quadrivalent, PF 2 completed CRIS hubbard, [facility] 09/05/2022 10:15:44 COVID-19, mRNA, LNP-S, PF, 100 mcg/0.5mL dose or 50 mcg/0.25mL dose 1 completed CRIS hubbard, [facility] 09/05/2022 10:15:44 COVID-19, mRNA, LNP-S, PF, 100 mcg/0.5mL dose or 50 mcg/0.25mL dose 1 completed CRIS hubbard, [facility] 09/05/2022 10:15:44 COVID-19, mRNA, LNP-S, PF, 100 mcg/0.5mL dose or 50 mcg/0.25mL dose 2 [facility] 10:15:44 Pneumococcal conjugate PCV20, polysaccharide [id number] conjugate, adjuvant, PF 3 completed CRIS hubbard, [facility] 09/05/2022 10:15:44 COVID-19, mRNA, LNP-S, bivalent, PF, 50 mcg/0.5 mL or 25mcg/0.25 mL dose 3 [facility] 09/05/2022 10:15:44 Tdap 2 completed CRIS hubbard, [facility] 09/05/2022 10:15:44 Influenza, split virus, quadrivalent, PF 1 completed CRIS hubbard, [facility] 09/05/2022 10:15:44 zoster recombinant 5 [facility] 03/03/2025 15:41:13 Influenza, MDCK, quadrivalent, preservative 3 completed Jacque hubbrad, [facility] 01/31/2023 13:50:48 pneumococcal polysaccharide PPV23 9 completed Janice hubbard, [facility] 10/27/2023 15:41:44 Influenza, split virus, quadrivalent, PF 9 completed Janice hubbard, [facility] 10/27/2023 15:41:44 COVID-19, mRNA, LNP-S, PF, 50 mcg/0.5 mL 4 completed CRIS hubbard, [facility] 02/29/2024 09:19:28 Influenza, MDCK, trivalent, preservative 4 completed CRIS hubbard, [facility] 02/29/2024 09:19:28 Influenza, high-dose, trivalent, PF 5 completed Not Available [facility] 03/03/2025 09:57:45 Past Encounters Encounter ID Performer Location Encounter Start Date Encounter Closed Date Diagnosis/Indication Diagnosis SNOMED-CT Code Diagnosis ICD10 Code Diagnosis IMO Codes Diagnosis Note [id number] JENNIFER LARSEN [facility] [address] [place] [address] [id number] 5 07/03/2022 15:35:20 07/08/2022 15:30:06 Dyspnea 669007586 R06.00 Recommende d patient go to ED due to exam findings. Patient agreed to treatment plan. Follow up with PCP after hospital discharge. 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 Increase ozempic to 1 mg weekly, from 0.5. No complaints of nausea or GI symptoms. Pt maintains that she is working on her diet. Pruritic rash 01055964 L 28.2 Chronic ob structive pulmonary disease 35503123 J44.9 No complaints with breathing. Postmenopa usal osteopenia 109443988 M85.80 [id number] HEATHER ACOSTA PA-C [facility] ([facility]) [address] [place] [address] [id number] 5 09/12/2022 15:27:22 09/28/2022 09:57:30 Adult health examination 348903896 Z00.00 Skin tag 963086247 L91.8 [id number] LISS CAMPBELL NP [facility] [address] [place] [address] [id number] 5 10/16/2022 10:52:22 10/16/2022 13:57:40 Acute sinusitis 45376646 J01.90 Increase PO fluidsDisc ussed taking antibiotic as prescribed Use humidifier in bedroom at nightDiscu ssed using OTC allergy medicine and Flonase as box directsMay also use vicks vapor rubMay use OTC sinus medicine or pseudaphed from pharmacy if no history of HTNIf you develop worsening pressure or symptoms follow up with PCP or return to the walk-in clinic Return to clinic if any changes, any worsening, any concernsPa tient verbalized understand ing of plan. [id number] Julia Acosta MD [facility] ([facility] [address] [place] [address] [id number] 5 11/17/2022 08:41:20 11/27/2022 14:39:37 Diabetes mellitus 13334170 E11.69 A1c 6.7, LDL 48. complaints of mild nausea for 30 minutes after getting her ozempic. Pt maintains that she is working on her diet. Chronic ob structive pulmonary disease 70825893 J44.9 Acute exac erbation of chronic obstructive pulmonary disease 472526236 J44.1 [id number] Julia Acosta MD [facility] [address] [place] [address] [id number] 5 12/21/2022 14:43:03 12/21/2022 16:12:27 Osteoporosis 21877881 M81.0 [id number] BETTY MUNIZ [facility] ([facility]) [address] [place] [address] [id number] 5 01/10/2023 10:06:03 01/10/2023 11:21:02 Acute back pain with sciatica 888729050 M54.40 Will start meloxicam today. Discussed with patient that she should perform light stretches at home twice daily as well as ice/heat as tolerated. Recommend ice TID for 1 week. If no improvemen t in 1 week, should follow up with PCP for re-evaluat ed. Patient verbalizes understand ing. [id number] Julia Acosta MD [facility] ([facility]) [address] [place] [address] [id number] 5 01/31/2023 13:26:29 01/31/2023 16:39:22 Acute exacerbation of chronic obstructive pulmonary disease 186498118 J44.1 has completed tx and returned to baseline [id number] Julia Acosta MD [facility]) [address] [place] [address] [id number] 5 02/16/2023 08:23:32 02/21/2023 10:43:02 Chronic obstructive pulmonary disease 82275459 J44.9 Complicati on due to diabetes mellitus 50291014 E13.8 Congestive heart failure 67471812 I50.9 Exposure t o SARS-CoV-2 285166387 Z20.619 [id number] Julia Acosta MD [facility]) [address] [place] [address] [id number] 5 03/28/2023 09:01:16 03/28/2023 11:07:33 Chronic obstructive pulmonary disease 17773878 J44.9 Complicati on due to diabetes mellitus 70657740 E13.8 Congestive heart failure 90178183 I50.43 Peripheral vascular disease 076377511 I73.9 Seizure disorder 1162877 02 G40.909 Body mass index 40+ - severely obese 159930822 Z68.41 Chronic re spiratory failure 43589839 J96.10 Hyperlipidemia 62371254 E78.5 Nicotine dependence 5629 4008 F17.200 Depressive disorder 3548 9007 F32.A Anxiety 38627656 F41.9 Essential hypertension 43909000 I10 Need for [facility] care assistance [id number] 5697134 Z74.1 Does mobil ize using walker 385692445 Z99.89 Acute exac erbation of chronic obstructive pulmonary disease 917260055 J44.1 has completed tx and returned to baseline [id number] Julia Acosta MD [facility]) [address] [place] [address] 5 05/18/2023 08:27:27 05/22/2023 09:07:42 Chronic obstructive pulmonary disease 33529056 J44.9 Complicati on due to diabetes mellitus 29564546 E13.8 weight loss is intentiona l and desired Congestive heart failure 09949632 I50.43 Obstructiv e sleep apnea syndrome 62101451 G47.33 Screening for malignant neoplasm of breast 254130438 Z12.31 [id number] Julia Acosta MD [facility] [address] [place] [address] 5 06/20/2023 10:52:36 06/20/2023 12:02:45 Acute exacerbation of chronic obstructive pulmonary disease 726398903 J44.1 Chronic arthritis 699431 07 M13.80 [id number] Julia Acosta MD [facility]) [address] [place] [address] [id number] 5 06/27/2023 09:53:38 06/27/2023 16:07:19 Osteoporosis 57629815 M81.0 [id number] Julia Acosta MD [facility] [address] [place] [address] 5 08/24/2023 08:11:41 08/28/2023 13:33:38 Chronic obstructive pulmonary disease 55613850 J44.9 Complicati on due to diabetes mellitus 52291528 E13.8 weight loss is intentiona l and desired Congestive heart failure 01304025 I50.43 [id number] Julia Acosta MD [facility] ([facility]) [address] [place], [place] [address]75-204 5 09/12/2023 09:32:04 09/14/2023 08:49:35 Pain in right thumb 2130708835 [id number] M79.243 [id number] Julia Acosta MD [facility]) [address] [place], [place] [address]75-204 5 10/04/2023 09:25:25 10/04/2023 13:39:59 Congestive heart failure 86139689 I50.43 Chronic ob structive pulmonary disease 81164133 J44.9 recommende d pulmonary rehab. she walks daily.. she is going to think about it. we discussed risk of not doing so. on max inhaler therapy and daliresp and nebs. she is doing well. [id number] JENNIFER CASTANEDA [facility] ([facility]) [address] [place], [place] [phone] 5 10/22/2023 15:45:11 10/22/2023 17:17:40 Pilonidal abscess 136107116 L05.01 Discussed use of warm compress to the area for 5 minutes 3-4 times a day. take antibiotic as directed.W esther with soap and water daily.Do NOT poke/squee ze the area.F/u if you develop increased swelling, redness, pain or concerns arise.Surg myrna referral ordered. [id number] Julia Acosta MD [facility]) [address] [place] [address] [id number] 5 11/22/2023 10:06:03 11/23/2023 12:53:40 Neuropathy due to diabetes mellitus 383275082 E11.40 Seizure disorder 2466787 02 G40.334 [id number] Julia Acosta MD [facility] [address] [place] [address] [id number] 5 11/23/2023 08:25:11 11/27/2023 10:07:35 Tendinitis of right shoulder 5972818673 039868 M75.91 Gluteal tendinitis 21288 003 M76.00 Chronic ob structive pulmonary disease 93911636 J44.9 I have reviewed the resident's vital signs, current labs, current meds, and plan of care and recommend no changes at this time. Congestive heart failure 31818212 I50.43 Peripheral vascular disease 618701862 I73.9 Obstructiv e sleep apnea syndrome 84357435 G47.33 Chronic ki dney disease stage 3A 335429281 N18.31 [id number] Julia Acosta MD [facility]) [address] [place], [place] [phone] 5 12/27/2023 10:05:59 12/27/2023 10:44:18 Diarrhea 30978659 R19.7 [id number] Julia Acosta MD [facility]) [address] [place] [address] 5 01/02/2024 09:31:51 01/03/2024 11:46:32 Neuropathy due to diabetes mellitus 524694157 E11.40 Osteoporosis 73199198 M8 1.0 Viral screening 20965537 4 Z11.59 [id number] Julia Acosta MD [facility]) [address] [place] [address] 5 02/29/2024 08:02:26 03/17/2024 13:32:50 Chronic obstructive pulmonary disease 98729990 J44.9 I have reviewed the resident's vital signs, current labs, current meds, and plan of care and recommend no changes at this time. Congestive heart failure 61417969 I50.43 Obstructiv e sleep apnea syndrome 50339138 G47.33 Neuropathy due to diabetes mellitus 811343339 E11.40 Candidiasis of vagina 72 810469 B37.31 [id number] Julia Acosta MD [facility]) [address] [place] [address] [id number] 5 05/13/2024 11:53:37 05/13/2024 14:46:19 Pain in right arm 592871573 M79.899 [id number] Julia Acosta MD [facility]) [address] [place] [address] [id number] 5 05/22/2024 11:01:56 05/23/2024 11:31:09 Seizure disorder 032107898 G40.909 Type 2 salvador betes mellitus 97126393 E11.69 [id number] Julia Acosta MD [facility]) [address] [place] [address] [id number] 5 05/23/2024 07:58:01 05/23/2024 16:53:01 Anxiety disorder 771589881 F41.9 Chronic ob structive pulmonary disease 57554622 J44.9 I have reviewed the resident's vital signs, current labs, current meds, and plan of care and recommend no changes at this time. Congestive heart failure 28271525 I50.43 Depressive disorder 3548 9007 F32.A Morbid obesity 164478771 E66.01 Neuropathy due to diabetes mellitus 651358346 E11.40 Peripheral vascular disease 839602309 I73.9 Seizure disorder 2041992 02 G40.909 Type 2 salvador betes mellitus 61231677 E11.69 Chronic re spiratory failure 16480543 J96.10 Hyperlipidemia 07785216 E78.5 Essential hypertension 22305209 I10 [facility] [id number] 3555630 Z74.1 Long-term oxygen therapy 007916309 Z99.81 Dependence on enabling machine or device 965643584 Z99.89 History of fall 10939740 9 Z91.81 Hyperkalemia 60635570 E8 7.5 Nicotine dependence 5629 4008 F17.200 Pulmonary hypertension 52175650 I27.20 [id number] JENNIFER CASTANEDA [facility]) [address] [place] [address] [id number] 5 05/26/2024 16:32:36 05/27/2024 15:29:52 Cough 43786078 R05.9 Acute bact erial bronchitis 449013552 J20.9 Discussed use of otc medication s for symptom management .Push oral fluids and rest.If you develop fever, sob, or start feeling worse then return for re-evaluat ion. [id number] Julia Acosta MD [facility] ([facility]) [address] [place] [address] [id number] 5 06/09/2024 14:40:12 06/10/2024 10:37:25 [id number] Julia Acosta MD [facility] [address] [place] [address] [id number] 5 06/13/2024 12:53:54 06/14/2024 06:45:47 Herpes zoster 5992941 B02.9 if eye pain eye redness or visual change please take her to the ER. Diabetic p eripheral neuropathy 804605434 E11.40 [id number] Julia Acosta MD [facility] [address] [place] [address] [id number] 5 08/22/2024 08:45:25 08/27/2024 11:22:40 Chronic obstructive pulmonary disease 30102362 J44.9 I have reviewed the resident's vital signs, current labs, current meds, and plan of care and recommend no changes at this time. Chronic re spiratory failure 43728116 J96.10 Congestive heart failure 78076391 I50.43 Essential hypertension 06360067 I10 Hyperlipidemia 54085490 E78.5 Type 2 salvador betes mellitus 06349741 E11.69 [id number] Julia Acosta MD [facility]) [address] [place] [address] [id number] 5 09/02/2024 12:36:35 09/03/2024 11:59:09 Overexertion from pushing 480695704 X50.9XXD 9027893 Finding re ported by subject or history provider 056417657 Y09 370937 Acute low back pain 2788 34759 M54.50 66477843 ice the area and rest the back from lifting/st renuouasct ivity [id number] Julia Acosta MD [facility]) [address] [place] [address] [id number] 5 10/07/2024 09:37:33 10/07/2024 10:19:55 Subcutaneous nodule 25009865 R22.9 677945 [id number] JENNIFER WESTON [facility]) [address] [place] [address] [id number] 5 10/21/2024 11:06:54 10/21/2024 11:44:50 Subcutaneous nodule 93785301 R22.9 192637 May use tylenol as needed for pain. No significan t swelling noted on exam. May use tylenol as needed for pain. Keep appt for US as scheduled 11/04/2024. RTC with any new or worsening symptoms. [id number] Julia Acosta MD [facility] [address] [place] [address] [id number] 5 11/04/2024 12:57:25 11/07/2024 13:52:05 Pain in right arm 535369289 M79.601 612464 [id number] Julia Acosta MD [facility] [address] [place], [place] 99[address]15[address]204 5 11/04/2024 13:38:08 11/05/2024 17:25:20 [id number] Julia Acosta MD [facility] [address] [place] [address] 75870-262 5 11/21/2024 08:17:26 12/01/2024 10:12:21 Essential hypertension 42970848 I10 Congestive heart failure 51367983 I50.43 Hyperlipidemia 13521391 E78.5 Type 2 salvador betes mellitus 13614550 E11.69 [id number] Julia Acosta MD [facility] [address] [place] [address] 78190-584 5 12/11/2024 11:33:58 12/11/2024 12:31:50 Lump in upper outer quadrant of right breast 5725678422 27491 N63.11 9139337898 [id number] JENNIFER WESTON [facility] [address] [place] [address] [id number] 5 01/19/2025 17:57:28 01/19/2025 18:35:06 Viral gastroenteritis 611514195 A08.4 16195 Increase po fluids as tolerated. Use Zofran as prescribed . RTC with any new or worsening symptoms. [id number] Julia Acosta MD [facility] [address] [place] [address] [id number] 5 02/20/2025 08:12:10 02/25/2025 11:13:46 Essential hypertension 91743944 I10 Congestive heart failure 57196023 I50.43 Hyperlipidemia 53716311 E78.5 Type 2 salvador betes mellitus 60629454 E11.69 Screening mammography 24 917946 Z12.31 5145007273 Osteoporosis 03673730 M8 1.0 Health Concerns Section Related Observation LastModified by Organization Detai ls LastModified Time None Recorded Concern Status LastModified by Organization Details LastModified Time None Recorded Advance Directives Directive None Recorded Payers Insurance Date Sequence Insurance Name Policy Number Policy Chi Covered Member ID Chi Member ID Guarantor Name 10/21/2024 1 [facility] SHARED SERVICES - MULTIPLAN (PPO) Yaquelin M Evaristo [id number] Yaquelin Loera 02/17/2025 2 [place] Yaquelin M Evaristo [id number] Yaquelin Loera 02/28/2025 1 [facility] (MEDICARE REPLACEMENT/ADV ANTAGE - PPO) Yaquelin Melony Loera [id number] Yaquelin Loera 02/17/2025 [place] [facility] Yaquelin M Evaristo [id number] Yaquelin M Loera Notes Date Note Type Note Provider Name and Address Organization Details Recorded Time 5 text/html DiabetesReported by PatientHPIFor duration, patient reportschronic. For control, patient reportsusually well controlled,improved since last visit, andhemoglobin a1c has been less than 7 (6.9). For compliance, patient reportscompliant with medicationsandcompliant with follow-up visits. For self care, patient reportsmonitoring glucose 4 times per day(patient is continuing to use the cgm and is benefiting from its use). Hypertension IM/FMReported by PatientHPIFor self care, patient reportssmoker. For severity, patient reportsnormal (<120/<80 mmhg). For duration, patient reportshtn present for ___ years. For onset/timing, patient reportsgradual onset. For alleviating factors, patient reportsmedication. For associated symptoms, patient reportsno chest pain. For risk factors, patient reportsheart failure,diabetes, andobesity. COPDReported by PatientHPI:For duration, patient reportschronicandhas noted for years. For context, patient reportscigarette smoking. For alleviating factors, patient reportsrelieved with oxygenandrelieved with bronchodilator(relieved with nebulizer medication). For associated symptoms, patient reportsnot coughing up sputumandno wheezing. For aggravating factors, (worse with humidity).ROS as noted in the HPI Patient seen today by Dr. Acosta at [facility] Julia Acosta MD [address] [place], [address], [facility] 11/26/2024 20:54:14 5 text/html Pt noticed a painless lump above her right breast that she would like to have examined. Pt feels it may be more of a muscle than a lump. She is right-side dominant. The last mammogram we have is from May 2023. Pt had the cyst in her right arm removed. Julia Acosta MD [address] [place], [address], [facility] 12/11/2024 12:30:31 5 text/html ROS as noted in the HPI walk inStarted this am- N/V/D, cough, ASKEW. Lives in Assisted Living. Known exposure to illness. JENNIFER WESTON [address] [place], [address], [facility] 01/19/2025 18:19:12 5 text/html DiabetesReported by PatientHPIFor duration, patient reportschronic. For control, patient reportsusually well controlled,improved since last visit, andhemoglobin a1c has been less than 7 (6.9). For compliance, patient reportscompliant with medicationsandcompliant with follow-up visits. For self care, patient reportsmonitoring glucose 4 times per day(patient is continuing to use the cgm and is benefiting from its use). Hypertension IM/FMReported by PatientHPIFor self care, patient reportssmoker. For severity, patient reportsnormal (<120/<80 mmhg). For duration, patient reportshtn present for ___ years. For onset/timing, patient reportsgradual onset. For alleviating factors, patient reportsmedication. For associated symptoms, patient reportsno chest pain. For risk factors, patient reportsheart failure,diabetes, andobesity. COPDReported by PatientHPI:For duration, patient reportschronicandhas noted for years. For context, patient reportscigarette smoking. For alleviating factors, patient reportsrelieved with oxygenandrelieved with bronchodilator(relieved with nebulizer medication). For associated symptoms, patient reportsnot coughing up sputumandno wheezing. For aggravating factors, (worse with humidity).ROS as noted in the HPI Patient seen today by Dr. Acosta at [facility] Julia Acosta MD [address] [place] [address], [phone], [facility], L.LEduarCEduar 02/24/2025 13:14:52 OBGyn Episode No OBEpisode recorded.
--- OUTSIDE RECORDS SUMMARY | 2025-03-11 10:25 | XMS_ITS | Continuity of Care Document ---
Author Organization [facility] Freddie Ansari, [facility] ([facility]) Address [address] [place] [address] Care Team Providers Care Barn Manager Name Role Phone JULIA FELIZ Primary Care Provider Assessment No assessment recorded. Plan of Treatment Reminders Order Date Submit Date Provider Last Modified By Organization Details Last Modified Time Details Appointments None recorded. Lab None recorded. Referral None recorded. Procedures None recorded. Surgeries None recorded. Imaging US, breast, unilateral 2024 025 [facility], [address] [place] [address], [address], 12:28:59 Medication Orders None recorded. Patient TargetsNo targets recorded. Patient InstructionsNo instructions recorded. Reason for Referral None Reported. Results Created Date Observation Date Name Description Value Unit Range Abnormal Flag Note LastModifiedBy Organization Detail LastModifiedTime 11/11/1911/04/2024 US, upper arm No observ ation record ed. [email or web address] [facility] ([facility]) [address] [place], [address], 11/21/2024 11:54:36 01/16/2001/15/2025 US, breas t, unila teral No observ ation record ed. [facility] [address] [place], [address], 01/16/2025 11:22:54 01/16/2001/15/2025 MAMMO , diagn ostic , digit al, unila teral No observ ation record ed. [email or web address] [facility] [address] [place], [address], 01/30/2025 08:18:01 Result Notes None recorded. Problems Name Problem SNOMED Code Status Onset Date Resolution Date Notes Provider Name and Address Organization Details Recorded Time section Completed 201807/13/2018 c-sectio n x 2 - Status is Inactive ; 07/14/19 4:19PM by Enid Galicia CMT, Annotati on/Adden dum; Promoted ; acuity set as *; Not Available [facility] 3 03:15:56 Arthropa thy 486452175 Completed 201807/13/2018 arthriti s - Status is Inactive ; 07/14/19 4:19PM by Enid Galicia CMT, Annotati on/Adden dum; Promoted ; acuity set as *; Not Available [facility] 3 03:15:58 Pain of joint of knee 9701510436 Active 2022 Chronic Knee Osteoart hritis CRIS hubbard, [facility] 5 08:16:19 Anxiety disorder 786693649 Active 2022 CRIS LOCKE null, [facility] 5 08:16:03 Depressi ve disorder 24665742 Active 2022 CRIS hubbard, [facility] 5 08:16:03 Chronic post-tra umatic stress disorder 540923519 Active 2022 PTSD CRIS hubbard [facility] 5 08:16:03 Peripher al vascular disease 250064535 Active 2022 CRIS hubbard, [facility] 3 15:30:17 Seizure disorder 690223420 Active 2022 CRIS hubbard [facility] 3 15:30:13 Morbid obesity 235014875 Active 2022 CRIS hubbard, [facility], Adan.CEduar 3 15:30:10 Congesti ve heart failure 63315828 Active 2022 CRIS hubbard, [facility], NoeCEduar 3 15:29:16 Hyperven tilation 63430942 Active 2022 obesity hyperven tilation syndrome CRIS LOCKE null, [facility], Adan.CEduar 3 15:30:07 History of attempte d suicide 221474486 Completed 202208/22/2024 CRIS hubbard, [facility], Freddie 5 09:45:02 Congenit al dysplasi a of cardiac valve 499512745 Active 2022 mitral valve CRIS hubbard, [facility], LibertyL.CEdu[facility] 3 15:31:33 Obstruct alejandrina sleep apnea syndrome 09095546 Active 2022 CRIS hubbard, [facility], Freddie 3 15:32:21 Neuropat hy due to diabetes mellitus 538859628 Active 2022 CRIS hubbard, [facility], NoeCEduar 3 15:32:37 Chronic obstruct alejandrina pulmonar y disease 66198996 Active 2022 CRIS hubbard, [facility], LibertyLEudarCEduar 3 15:32:49 Osteopor osis 41831722 Active 2023 CRIS hubbard, [facility], NoeCEduar 5 08:16:03 Clostrid ium difficil e colitis 107688795 Completed 202308/22/2024 hx of CRIS hubbard, [facility] LEduarL.C. 5 09:45:02 Vitamin D deficien cy 18371304 Active 2023 CRIS LOCKE null, [facility] 5 08:16:03 Type 2 diabetes mellitus 45766476 Active 2023 CRIS LOCKE null, [facility] 5 08:16:03 Insomnia 213899128 Active 2024 CRIS LOCKE null, [facility] 5 08:16:03 Chronic respirat ory failure 06020984 Active 2024 Julia Feliz MD [address] [place] [address], [address] [place] [address] , [facility] 5 11:10:53 Hyperlip idemia 82771759 Active 2024 Julia Feliz MD [address] [place] [address], [address] [place] [address] , [facility] 5 11:10:53 [facility] hyperten jamel 99683730 Active 2024 Julia Feliz MD [address] [place] [address], [address] [place] [address] , [facility] 5 11:10:53 Nicotine dependen ce 49044753 Active 2024 CRIS LOCKE null, [facility] 5 09:44:52 Pulmonar y hyperten jamel 93564616 Active 2024 CRIS LOCKE null, [facility] 5 12:55:57 Pain in right arm 172981824 Active 2024 CRIS LOCKE null, [facility] 5 10:59:14 Lipoma of upper limb 495261979 Active 2024 CRIS LOCKE [facility], Freddie 5 10:59:57 Lump in upper outer quadrant of right breast 47777925749 4108 Active 2024 Jacque Rendon [facility], Freddie 5 08:24:49 Problem Notes None recorded. Procedures Surgical History Date Name Laterality Status Provider Name and Address Organization Details Recorded Time 5 screening for malignant neoplasm of colon completed [facility], Freddie 10/03/2024 14:51:57 3 jr shave biopsy completed HEATHER FELIZ PA-C [address] [place] [address], [phone], Freddie 09/20/2022 14:01:21 3 mammography completed [facility], Freddie 08/24/2022 08:26:06 2 screening for malignant neoplasm of colon completed [facility], Freddie 11/17/2022 16:25:23 1 [facility] 08:27:41 1 bone density scan completed [facility], Freddie 08/24/2022 08:28:12 Imaging Results None recorded. Procedure Notes None recorded. Medical Equipment None Reported. Allergies Allergen ID Allergen Name Allergen Category Reaction Reaction Severity Criticality Documentation Date Start Date Code Code System Note Provider Name and Address Organization Details Recorded Time 8471 Product containin g penicilli n (product) medicatio n edema moderate low 07/17/2022 65050 3213 SNOMED Janice Carreon [facility] 4 15:42:14 2360 Substance with sulfonami de structure and antibacte rial mechanism of action (substanc e) medicatio n edema moderate low 07/17/2022 72641 8003 SNOMED Janice Carreon [facility] 4 15:42:18 2361 metformin medicatio n Not available Not available Not available 07/17/2022 6809 RxNorm Jacque Justice [facility] 3 12:04:56 80481 Bactrim medicatio n edema Not available Not available 10/14/2022 66412 9 RxNorm React ion: Edema ; Comme nt: Recor ded 05/19 8:19A M by Safia Zaragoza on, FITTING ROOM SUPERVISOR, Offic e Visit ; Promo frida; Signi fican ce: *; Reaso n: Drug aller gy; ; CRIS LOCKE [facility] 3 16:21:32 96167 penicilli n V potassium medicatio n edema Not available Not available 10/14/202232759 5 RxNorm React ion: Edema ; Comme nt: Recor ded 05/19 8:19A M by Safia Zaragoza on, FITTING ROOM SUPERVISOR, Offic e Visit ; Promo frida; Signi fican ce: *; Reaso n: Drug aller gy; ; CRISRichard LOCKE [facility] 3 16:21:39 Medications Name Sig Start Date [...] two times daily 11/17 completed Recorded 03/08/20 1:49PM by Jacque Nicholas RN, Office Visit; [...] n 0.3 %-dexamet hasone 0.1 % eye drops,dexter pension 10/21 completed Not Available Not Available [...] units, 251-300: 4 units, 301-350: 6 units, 5223366: 8 units. Max dose 24 units/da y [...] Cris Locke LPN (Authori zed through Julia Feliz MD), Annotati on/Adden dum; Refill Quantity : 60; Gram; Not Available Not Available Not Available albuterol every 6 hrs prn 11/17 completed 0; Recorded 05/20/19 23 8:19AM by Cris Locke LPN, Office Visit; Not Available Not Available Not Available zinc daily 11/17 completed 436; Recorded 07/27/19 22 1:40PM by Cris Locke LPN (Authori zed through Julia Feliz MD), Refill Request; Refill Quantity : 30; Tablet; Not Available Not Available Not Available Diflucan today, repeat in 7 days 11/17 completed Recorded 03/27/19 23 12:53PM by Jacque Nicholas RN, Office Visit; Refill Quantity : 0; Not Available Not Available Not Available lancets three times daily 05/23 completed Not Available Not Available Not Available Aspirin EC daily 03/28 completed 436; Recorded 02/19/20 21 8:35AM by Cris Locke LPN (Authori zed through Julia Feliz MD), Office Visit; Refill Quantity : 0; Not Available Not Available Not Available bumetanid e every morning 11/17 completed 59168; Recorded 05/30/19 23 6:12PM by Yadira Craig (Authori zed through Dimitri Ruiz MD), Refill Request; Refill Quantity : 30; Tablet; Not Available Not Available Not Available venlafaxi ne daily 11/17 completed 436; Recorded 02/14/20 22 3:03PM by Cris Locke LPN (Authori zed through Julia Feliz MD), Refill Request; Refill Quantity : 30; Capsule; Not Available Not Available Not Available ipratropi um-albute rol q 4 hrs prn 11/17 completed 436; Recorded 03/24/19 21 3:22PM by Cris Locke LPN (Authori zed through Julia Feliz MD), Annotati on/Adden dum; Refill Quantity : 50; Vial; Not Available Not Available Not Available hydroxyzi ne pamoate every 8 hrs prn anxiety 10/24 completed Recorded 05/20/19 23 10:02AM by Julia Feliz MD, Annotati on/Adden dum; Refill Quantity : 30; Capsule; Not Available Not Available Not Available Acidophil us daily 11/17 completed 175mg daily; 436; Recorded 03/23/19 23 1:32PM by Cris Locke LPN (Authori zed through Julia Feliz MD), Refill Request; Refill Quantity : 30; [...] 30 days then disconti nue; Recorded 05/28/19 20 3:17PM by Selena Nassar LPN, Office Visit; Refill Quantity : 0; Not Available Not Available Not Available Actos QD 11/17 completed 436; Recorded 07/27/19 22 1:39PM by Cris Locke LPN (Authori zed through Julia Feliz MD), Refill Request; Refill Quantity : 15; Tablet; Not Available Not Available Not Available Refresh Liquigel to affected eye prn dryness 11/17 completed 0; Recorded 05/20/19 23 8:19AM by Cris Locke LPN, Office Visit; Not Available Not Available Not Available Novolog FlexPen U-100 Insulin per moderate sliding scale 11/17 completed 436; Recorded 04/11/19 23 10:34AM by Cris Locke LPN (Authori sashad through Julia Feliz MD), Refill Request; Refill Quantity : 1; [...] Cris Locke LPN (Authori zed through Julia Feliz MD), Refill Request; Refill Quantity : 30; Tablet; Not Available Not Available Not Available OneTouch Verio test strips three times daily 11/17 completed DOC DM/sd; 436; Recorded 04/19/19 23 1:39PM by Jacque Nicholas RN (Authori sashad through Julia Feliz MD), Refill Request; Refill Quantity : 100; [...] Available TechLITE Pen Needle 31 gauge x 08/01 USE DIRECTED 2023 active Not Available Not [...] Ozempic weekly 11/17 completed 436; Recorded 02/02/20 22 12:51PM by Cris Locke LPN (Authori sashad through Julia Feliz MD), Refill Request; Refill Quantity : 1; [...] Available Not Available Not Available Dexcom G7 Door Repairer Bus USE as directed TO test blood sugars FOUR TIMES DAILY 2023 active Not Available Not Available Not Avai lable Dexcom G7 Sensor device USE as directed TO test blood sugar FOUR TIMES DAILY; change EVERY 10 days.; DOCUMENT ATION NOT NEEDED ON MAR 2024 active Not Available Not Available Not Avai lable Ozempic 0.25 mg or 0.5 mg (2 mg/3 mL) subcutane ous pen injector 09/12 completed Not Available Not Available Not Available Vitals Date Recorded Body height Body mass index (BMI) Body weight Body temperature Heart rate Oxygen saturation Systolic And Diastolic Provider Name and Address Organization Details Last Updated DateTime 144.78 cm 41.3 kg/m2 66921.1 4 g 97 [degF] 78 /min 96 % 118/72 mm[Hg] Jacque Rendon [facility] 12:00:46 Social History Question Answer Notes LastModified by [employer] ion Details LastModified Time Tobacco Smoking Status Current Every Day Smoker CRIS hubbard [facility] 09/05/2022 15:33:40 What Was The Date Of Your Most Recent Tobacco Screening? 01/19/2025 [email or web address] Information not available 01/19/2025 Sex: Unknown Functional Status Question Answer Note LastModified by [email or web address] ion Details LastModified Time Do you use any illicit or recreational drugs? No [email or web address] Information not available 09/05/2022 Do you or have you ever used any other forms of tobacco or nicotine? No Information not available 11/17/2022 What is your level of alcohol consumption? None [email or web address] Information not available 09/05/2022 Mental Status None recorded. Family History Relationship Description Onset Age of this Age Resolved Age Notes LastModified by Organization Details LastModified Time Brother Coronary atherosclero sis [email or web address] Not available 11/17 16:24:45 Sister Coronary atherosclero sis [email or web address] Not available 11/17 16:24:45 Medical History No medical history recorded. Gynecological HistoryNo gynecological history recorded. Obstetrics History GPAL:G 0 P 0 0 0 0 Immunizations Vaccine Type Date Status Note Provider Nam e and Address Organization Details Recorded Time zoster live 5 completed Not Available [facility] 03/28/2023 09:01:37 zoster live 9 completed Not Available [facility] 03/28/2023 09:01:37 Tdap 5 completed Not Available [facility] 03/28/2023 09:01:37 zoster live 8 completed Not Available [facility] 03/28/2023 09:01:37 Influenza, split virus, trivalent, preservative 7 completed Not Available [facility] 03/28/2023 09:01:37 Influenza, split virus, trivalent, preservative 8 completed Not Available [facility] 03/28/2023 09:01:37 Pneumococcal conjugate PCV 13 7 completed Not Available [facility] 03/28/2023 09:01:37 Influenza, MDCK, quadrivalent, PF 2 completed CRIS hubbard [facility] 09/05/2022 10:15:44 COVID-19, mRNA, LNP-S, PF, 100 mcg/0.5mL dose or 50 mcg/0.25mL dose 1 completed CRIS hubbard [facility] 09/05/2022 10:15:44 COVID-19, mRNA, LNP-S, PF, 100 mcg/0.5mL dose or 50 mcg/0.25mL dose 1 completed CRIS hubbard, [facility] 09/05/2022 10:15:44 COVID-19, mRNA, LNP-S, PF, 100 mcg/0.5mL dose or 50 mcg/0.25mL dose 2 completed CRIS hubbard, [facility] 09/05/2022 10:15:44 Pneumococcal conjugate PCV20, polysaccharide QBL619 conjugate, adjuvant, PF 3 completed CRIS hubbard, [facility] 09/05/2022 10:15:44 COVID-19, mRNA, LNP-S, bivalent, PF, 50 mcg/0.5 mL or 25mcg/0.25 mL dose 3 [facility] 09/05/2022 10:15:44 Tdap 2 completed CRIS hubbard, [facility] 09/05/2022 10:15:44 Influenza, split virus, quadrivalent, PF 1 completed CRIS hubbard, [facility] 09/05/2022 10:15:44 zoster recombinant 5 [facility] 03/03/2025 15:41:13 Influenza, MDCK, quadrivalent, preservative 3 completed [facility] 01/31/2023 13:50:48 pneumococcal polysaccharide PPV23 9 completed Janice hubbard, [facility] 10/27/2023 15:41:44 Influenza, split virus, quadrivalent, PF 9 completed Janice hubbard, [facility] 10/27/2023 15:41:44 COVID-19, mRNA, LNP-S, PF, 50 mcg/0.5 mL 4 completed CRIS hubbard [facility], LEduarLAshtyn 02/29/2024 09:19:28 Influenza, MDCK, trivalent, preservative 4 completed CRIS hubbard [facility]CE[facility] 02/29/2024 09:19:28 Influenza, high-dose, trivalent, PF 5 completed Not Available [facility] 03/03/2025 09:57:45 Past Encounters Encounter ID Performer Location Encounter Start Date Encounter Closed Date Diagnosis/Indication Diagnosis SNOMED-CT Code Diagnosis ICD10 Code Diagnosis IMO Codes Diagnosis Note [id number] Julia Feliz MD [facility] ([facility]) [address] [place] [phone] 11/21/2024 08:17:26 12/01/2024 10:12:21 Essential hypertension 39044921 I10 Congestive heart failure 93064118 I50.43 Hyperlipidemia 67580733 E78.5 Type 2 salvador betes mellitus 51721015 E11.69 [id number] Julia Feliz MD [facility] ([facility]) [address] [place] [phone] 12/11/2024 11:33:58 12/11/2024 12:31:50 Lump in upper outer quadrant of right breast 2420669090 83482 N63.11 [id number] Health Concerns Section Related Observation LastModified by Organization Detai ls LastModified Time None Recorded Concern Status LastModified by Organization Details LastModified Time None Recorded Payers Encounter Date Sequence Insurance Name Policy Number Policy Chi Covered Member ID Chi Member ID Guarantor Name 12/11/2024 1 [facility] (MEDICARE REPLACEMENT/A DVANTAGE - PPO) Yaquelin Loera [id number] Yaquelin Loera 12/11/2024 2 [place] Yaquelin Loera [id number] Yaquelin Loera Notes Date Note Type Note Provider Name and Address Organization Details Recorded Time 12/11/2024 text/html Pt noticed a painless lump above her right breast that she would like to have examined. Pt feels it may be more of a muscle than a lump. She is right-side dominant. The last mammogram we have is from May 2023. Pt had the cyst in her right arm removed. Julia Feliz MD [address] [place] [address], [phone], [facility], Freddie 12/11/2024 12:30:31 OBGyn Episode No OBEpisode recorded.
--- OUTSIDE RECORDS SUMMARY | 2025-03-11 10:25 | XMS_ITS | Continuity of Care Document ---
Author Organization [facility] Julio George [facility] Freddie Ansari, [facility] ([facility]) Address [address] [place] [address] Care Team Providers Care Door Liner Name Role Phone JULIA ACOSTA Primary Care Provider [phone] Assessment No assessment recorded. Plan of Treatment Reminders Order Date Submit Date Provider Last Modified By Organization Details Last Modified Time Details Appointments None recorded. Lab None recorded. Referral None recorded. Procedures None recorded. Surgeries None recorded. Imaging None recorded. Medication Orders ondansetron 4 mg disintegrat ing tablet 2024 025 [facility], [address] [place] [address], [address], 15:09:53 Patient TargetsNo targets recorded. Patient InstructionsNo instructions recorded. Reason for Referral None Reported. Results Created Date Observation Date Name Description Value Unit Range Abnormal Flag Note LastModifiedBy Organization Detail LastModifiedTime 01/16/2001/15/2025 , amy t, onela teral No observ ation record ed. [facility] [address] [place], [address], 01/16/2025 11:22:54 01/16/2001/15/2025 MAMMO , diagn ostic , digit al, unila teral No observ ation record ed. [address] [place], [address], 01/30/2025 08:18:01 Result Notes None recorded. Problems Name Problem SNOMED Code Status Onset Date Resolution Date Notes Provider Name and Address Organization Details Recorded Time section Completed 201807/13/2018 c-sectio n x 2 - Status is Inactive ; 07/14/19 4:19PM by Enid Galicia CMT, Annotati on/Adden dum; Promoted ; acuity set as *; Not Available [facility] 3 03:15:56 Arthropa thy 716091803 Completed 201807/13/2018 arthriti s - Status is Inactive ; 07/14/19 4:19PM by Enid Galicia CMT, Annotati on/Adden dum; Promoted ; acuity set as *; Not Available [facility] 3 03:15:58 Pain of joint of knee 6830272213 Active 2022 Chronic Knee Osteoart hritis CRIS hubbard, [facility] 5 08:16:19 Anxiety disorder 909669781 Active 2022 CRIS hubbard, [facility] 5 08:16:03 Depressi ve disorder 06723111 Active 2022 CRIS hubbard, [facility] 5 08:16:03 Chronic post-tra umatic stress disorder 207887325 Active 2022 [facility] 08:16:03 Peripher al vascular disease 444071773 Active 2022 CRIS hubbard, [facility] 3 15:30:17 Seizure disorder 581533179 Active 2022 CRIS hubbard, [facility] 3 15:30:13 Morbid obesity 338578393 Active [address] [facility] 3 15:30:10 Congesti ve heart failure 06708276 Active 2022 CRIS hubbard, [facility] 3 15:29:16 Hyperven tilation 73027458 Active 2022 obesity hyperven tilation syndrome CRISCHEMA LOCKE null, [facility] 3 15:30:07 History of attempte d suicide 510113062 Completed 202208/22/2024 CRIS LOCKE stevie, [facility] 5 09:45:02 Congenit al dysplasi a of cardiac valve 201930249 Active 2022 mitral valve CRIS hubbard, [facility], [place].[facility] 3 15:31:33 Obstruct alejandrina sleep apnea syndrome 77238510 Active 2022 CRIS hubbard, [facility] 3 15:32:21 Neuropat hy due to diabetes mellitus 111238625 Active 2022 CRIS hubbard, [facility] 3 15:32:37 Chronic obstruct alejandrina pulmonar y disease 82768558 Active 2022 CRIS hubbard, [facility] 3 15:32:49 Osteopor osis 02747442 Active 2023 CRIS hubbard, [facility] 5 08:16:03 Clostrid ium difficil e colitis 926059476 Completed 202308/22/[address] [facility]arL.CEduar 5 09:45:02 Vitamin D deficien cy 47617056 Active 2023 CRIS hubbard, [facility] 5 08:16:03 Type 2 diabetes mellitus 45385253 Active 2023 CRIS LOCKE null, [facility] 5 08:16:03 Insomnia 141961777 Active 2024 CRIS LOCKE null, [facility] 5 08:16:03 Chronic respirat ory failure 47996688 Active 2024 Julia Acosta MD [address] [place] [address], [address] [place] [address] , [facility] 5 11:10:53 Hyperlip idemia 79882528 Active 2024 Julia Acosta MD [address] [place] [address], [address] [place] [address] , [facility] 5 11:10:53 [facility]ia l hyperten jamel 88129181 Active 2024 Julia Acosta MD [address] [place] [address], [address] [place] [address] , [facility] 11:10:53 Nicotine dependen ce 97442091 Active 2024 CRIS LOCKE null, [facility] 5 09:44:52 Pulmonar y hyperten jamel 12426985 Active 2024 CRIS LOCKE null, [facility] 5 12:55:57 Pain in right arm 277900901 Active 2024 CRIS LOCKE null, [facility] 5 10:59:14 Lipoma of upper limb 669495339 Active 2024 CRIS LOCKE null, [facility] 5 10:59:57 Lump in upper outer quadrant of right breast 09508249541 4108 Active 2024 Jacque Rendon [facility] 5 08:24:49 Problem Notes None recorded. Procedures Surgical History Date Name Laterality Status Provider Name and Address Organization Details Recorded Time 5 screening for malignant neoplasm of colon completed [facility], Freddie 10/03/2024 14:51:57 3 jr shave biopsy completed HEATHER ACOSTA PA-C [address] [place] [address], [id number], [facility], Freddie 09/20/2022 14:01:21 3 mammography completed SELENA [facility], Freddie 08/24/2022 08:26:06 2 screening for malignant neoplasm of colon completed [facility], Fredide 11/17/2022 16:25:23 1 diabetic retinal eye exam completed [facility], [facility] 08/24/2022 08:27:41 1 bone density scan completed [facility] [place] 08/24/2022 08:28:12 Imaging Results None recorded. Procedure Notes None recorded. Medical Equipment None Reported. Allergies Allergen ID Allergen Name Allergen Category Reaction Reaction Severity Criticality Documentation Date Start Date Code Code System Note Provider Name and Address Organization Details Recorded Time 235 Product containin g penicilli n (product) medicatio n edema moderate low 07/17/2022 73110 8001 [facility]ED [facility] 15:42[facility]14 2360 Substance with sulfonami de structure and antibacte rial mechanism of action (substanc e) medicatio n edema moderate low 07/17/2022 91983 8003 SNOMED [facility] 4 15:42:18 2361 metformin medicatio n Not available Not available Not available 07/17/2022 6809 RxNorm Jacque hubbard, [facility] 3 12:04:56 23054 Bactrim medicatio n edema Not available Not available 10/14/2022 26230 9 RxNorm React ion: Edema ; Comme nt: Recor ded 05/19 8:19A M by Safia Zaragoza on, EGG CANDLER, Offic e Visit ; Promo frida; Signi fican ce: *; Reaso n: Drug aller gy; ; CRIS hubbard, [facility] 3 16:21:32 44700 penicilli n V potassium medicatio n edema Not available Not available 10/14/202235928 5 RxNorm React ion: Edema ; Comme nt: Recor ded 05/19 8:19A M by Safia Zaragoza on, EGG CANDLER, Offic e Visit ; Promo frida; Signi fican ce: *; Reaso n: Drug aller gy; ; [facility] 3 16:21:39 Medications Name Sig Start [...] units, 251-300: 4 units, 301-350: 6 units, 2128050: 8 units. Max dose 24 units/da y [...] 21 3:54PM by Cris Locke LPN (Authori ximena through Julia Acosta MD), Annotati on/Adden dum; [...] Available bumetanid e every morning 11/17 completed 02268; Recorded 05/30/19 23 6:12PM by Yadira Craig [...] 23 1:32PM by Cris Locke LPN (Authori sashad through Julia Acosta MD), Refill Request; Refill [...] 23 10:34AM by Cris Locke LPN (Authori zed through [...] Jacque Nicholas RN (Authori sashad through Julia Acosta MD), Refill Request; Refill [...] 02/02/20 22 12:51PM by Cris Locke LPN (i ximena through Julia Acosta MD), Refill Request; [...] Available Not Available Not Available Dexcom G7 Advertising Consultant USE as directed TO test blood sugars [...] Organization Details Last Updated DateTime 144.78 cm 41.1 kg/m2 25819.5 5 g 95 % 82 /min 98.2 [degF] 138/80 mm[Hg] Bria Corey [facility] 18:05:19 Social History Question Answer Notes LastModified by [employer] Details LastModified Time Tobacco Smoking Status Current Every Day Smoker CRIS hubbard [facility] 09/05/2022 15:33:40 What Was The Date Of Your Most Recent Tobacco Screening? 01/19/2025 [email or web address] Information not available 01/19/2025 Sex: Unknown Functional Status Question Answer Note LastModified by [employer] Details LastModified Time Do you use any illicit or recreational drugs? No [email or web address] Information not available 09/05/2022 Do you or have you ever used any other forms of tobacco or nicotine? No [email or web address] Information not available 11/17/2022 What is your level of alcohol consumption? None [email or web address] Information not available 09/05/2022 Mental Status None recorded. Family History Relationship Description Onset Age of this Age Resolved Age Notes LastModified by Organization Details LastModified Time Brother Coronary atherosclero sis [email or web address] Not available 11/17 16:24:45 Sister Coronary atherosclero sis [email or web address] Not available 11/17 16:24:45 Medical History No medical history recorded. Gynecological HistoryNo gynecological history recorded. Obstetrics History GPAL:G 0 P 0 0 0 0 Immunizations Vaccine Type Date Status Note Provider Nam e and Address Organization Details Recorded Time zoster live 5 completed Not Available [facility] 03/28/2023 09:01:37 zoster live 9 completed Not Available [facility] 03/28/2023 09:01:37 Tdap 5 completed Not Available [facility] 03/28/2023 09:01:37 zoster live 8 completed Not Available [facility] 03/28/2023 09:01:37 Influenza, split virus, trivalent, preservative 7 completed Not Available [facility] 03/28/2023 09:01:37 Influenza, split virus, trivalent, preservative 8 completed Not Available [facility] 03/28/2023 09:01:37 Pneumococcal conjugate PCV 13 7 completed Not Available [facility] 03/28/2023 09:01:37 Influenza, MDCK, quadrivalent, PF 2 completed CRIS hubbard, [facility] 09/05/2022 10:15:44 COVID-19, mRNA, LNP-S, PF, 100 mcg/0.5mL dose or 50 mcg/0.25mL dose [address] [facility] 09/05/2022 10:15:44 COVID-19, mRNA, LNP-S, PF, 100 mcg/0.5mL dose or 50 mcg/0.25mL dose [address] [facility] 09/05/2022 10:15:44 COVID-19, mRNA, LNP-S, PF, 100 mcg/0.5mL dose or 50 mcg/0.25mL dose 2 completed CRIS LOCKE null, [facility] 09/05/2022 10:15:44 Pneumococcal conjugate PCV20, polysaccharide QJJ202 conjugate, adjuvant, PF 3 completed CRIS LOCKE null, [facility] 09/05/2022 10:15:44 COVID-19, mRNA, LNP-S, bivalent, PF, 50 mcg/0.5 mL or 25mcg/0.25 mL dose 3 completed CRIS LOCKE null, [facility] 09/05/2022 10:15:44 Tdap 2 completed CRIS LOCKE null, [facility] 09/05/2022 10:15:44 Influenza, split virus, quadrivalent, PF 1 completed CRIS hubbard, [facility] 09/05/2022 10:15:44 zoster recombinant 5 completed CRIS LOCKE [facility] 03/03/2025 15:41:13 Influenza, MDCK, quadrivalent, preservative 3 completed [facility] 01/31/2023 13:50:48 pneumococcal polysaccharide PPV23 9 completed Janice Carreon null, [facility] 10/27/2023 15:41:44 Influenza, split virus, quadrivalent, PF 9 completed Janice Carreon [facility] 10/27/2023 15:41:44 COVID-19, mRNA, LNP-S, PF, 50 mcg/0.5 mL 4 completed CRIS LOCKE null, [facility] 02/29/2024 09:19:28 Influenza, MDCK, trivalent, preservative [address] [facility] 02/29/2024 09:19:28 Influenza, high-dose, trivalent, PF 5 completed Not Available [facility] 03/03/2025 09:57:45 Past Encounters Encounter ID Performer Location Encounter Start Date Encounter Closed Date Diagnosis/Indication Diagnosis SNOMED-CT Code Diagnosis ICD10 Code Diagnosis IMO Codes Diagnosis Note [id number] JENNIFER WESTON [facility] ([facility]) [address] [place] [address] 01/19/2025 17:57:28 01/19/2025 18:35:06 Viral gastroenteritis 698498210 A08.4 42046 Increase po fluids as tolerated. Use Zofran as prescribed . RTC with any new or worsening symptoms. Health Concerns Section Related Observation LastModified by Organization Detai ls LastModified Time None Recorded Concern Status LastModified by Organization Details LastModified Time None Recorded Payers Encounter Date Sequence Insurance Name Policy Number Policy Chi Covered Member ID Chi Member ID Guarantor Name 01/19/2025 1 [facility] (MEDICARE REPLACEMENT/A DVANTAGE - PPO) Yaquelin Loera [id number] Yaquelin Loera 01/19/2025 2 [place] Yaquelin Loera [id number] Yaquelin Loera Notes Date Note Type Note Provider Name and Address Organization Details Recorded Time 01/19/2025 text/html ROS as noted in the HPI walk inStarted this am- N/V/D, cough, ASKEW. Lives in Assisted Living. Known exposure to illness. JENNIFER WESTON [address] [place], [address], [facility], [place] 01/19/2025 18:19:12 OBGyn Episode No OBEpisode recorded.
[2025-03-11 10:31] VITALS: BP 112/83; PULSE 85; TEMP 36.5; O2SAT 94
--- NOTE | 2025-03-11 11:24 | W.ED.URI ---
HPI - URI/Sore Throat General: Chief Complaint: Upper Respiratory Infection Stated Complaint: congestion, sob Time Seen by Provider: 03/11/25 11:17 History of Present Illness: 69-year-old female with a history of COPD, history of small bowel obstructions, hypertension, restrictive lung disease, sleep apnea, diastolic heart failure, pulmonary hypertension, cardiomyopathy, mitral regurgitation, depression, seizure disorder, hyperlipidemia, type 2 diabetes, and obesity who presents to the emergency room with congestion and mild shortness of breath. She lives in assisted living. Other people are sick there. Said some mild shortness of breath and congestion. No wheeze on exam. No oxygen requirements. No chest pain. No altered mental status. No focal motor deficits Related Data Home Medications ?Medication ?Instructions ?Recorded ?Confirmed bisacodyl 5 mg tablet,delayed 10 mg PO DAILY PRN Constipation 05/16/19 12/30/24 release (Dulcolax (bisacodyl)) carbamide peroxide 6.5 % ear drops 10 drp otic (ear) Q30D 05/16/19 12/30/24 (Debrox) fluticasone fur. 100 mcg-umeclid 1 inh inhalation DAILY@05/16/19 12/30/24 62.5 mcg-vilant 25 mcg inhalat.powder (Trelegy Ellipta) gabapentin 300 mg capsule 300 mg PO BID@07,199905/16/19 12/30/24 melatonin 5 mg tablet 5 mg PO BEDTIME@199905/16/19 12/30/24 roflumilast 500 mcg tablet 500 mcg PO DAILY@0700 05/16/19 12/30/24 (Daliresp) sodium chloride 0.65 % nasal spray See Rx Instructions .Route .COMPLEX 05/31/19 12/30/24 aerosol (Saline Nasal) levetiracetam 500 mg tablet See Rx Instructions .Route .COMPLEX 06/03/19 12/30/24 mirabegron 25 mg tablet,extended 25 mg PO DAILY@0700 10/28/20 12/30/24 release 24 hr (Myrbetriq) promethazine-DM 6.25 mg-15 mg/5 mL 5 ml PO Q6H PRN Cough 10/28/20 12/30/24 oral syrup aspirin 81 mg tablet,delayed 81 mg PO DAILY@07 12/09/2025 release loperamide 2 mg tablet 2 mg PO QID PRN Diarrhea 12/09/20 12/30/24 rosuvastatin 40 mg tablet 40 mg PO DAILY@09/08/21 12/30/24 bumetanide 0.5 mg tablet 0.5 mg PO DAILY@01/05/22 12/30/24 carboxymethylcellulose sodium 0.5 1 - 2 drp ophthalmic (eye) QID PRN 01/05/22 12/30/24 % eye drops (Refresh Tears) Dry Eye(S) clotrimazole 1 % topical cream See Rx Instructions .Route .COMPLEX 01/05/22 12/30/24 ipratropium 0.5 mg-albuterol 3 mg 3 ml inhalation Q4H PRN Shortness 01/05/22 12/30/24 (2.5 mg base)/3 mL nebulization Of Breath soln cholecalciferol (vitamin D3) 50 50 mcg PO DAILY@07/09/22 12/30/24 mcg (2,000 unit) capsule (Vitamin D3) empagliflozin 25 mg tablet 25 mg PO DAILY@07/09/22 12/30/24 (Jardiance) insulin degludec 100 unit/mL (3 10 unit SUBCUT BEDTIME 07/09/22 12/30/24 mL) subcutaneous pen (Tresiba FlexTouch U-100 insulin) lidocaine 5 % topical patch 1 patch topical DAILY PRN Pain 07/09/22 12/30/24 vitamins A,C,U-zvhf-zmcvsx 4,296 1 cap PO BID@07,19 07/09/22 12/30/24 mcg-226 mg-90 mg capsule (PreserVision AREDS) nystatin 100,000 unit/gram topical 1 applic topical BID PRN Skin 01/21/23 12/30/24 powder Irritation semaglutide 1 mg/dose (4 mg/3 mL) 1 mg SUBCUT Q7D 01/21/23 12/30/24 subcutaneous pen injector (Ozempic) L.acidophil,salivari-Bifido 1 cap PO QPM 09/20/23 12/30/24 bifidum-Strep thermoph 175 mg capsule (Acidophilus Probiotic Blend) ammonium lactate 12 % topical cream 1 applic topical BEDTIME 09/20/23 12/30/24 fluticasone propionate 50 1 spray intranasal QAM 09/20/23 12/30/24 mcg/actuation nasal spray,suspension hydroxyzine pamoate 25 mg capsule 25 mg PO Q8H PRN Anxiety 09/20/23 12/30/24 camphor-menthol 0.2 %-3.5 % 1 applic topical BID PRN Muscle 04/22/24 12/30/24 topical gel Pain ibuprofen 200 mg tablet 24,000 mg PO Q6H PRN Pain 04/22/24 12/30/24 insulin lispro 100 unit/mL See Rx Instructions .Route .COMPLEX 04/22/24 12/30/24 subcutaneous pen (Humalog KwikPen (U-100) Insulin) menthol 3.2 mg lozenges (Blount 3.2 mg mucous membrane Q2H PRN 04/22/24 12/30/24 Cough Drops) Cough miconazole nitrate 2 % topical 1 applic topical BID 04/22/24 12/30/24 cream Previous Rx's ?Medication ?Instructions ?Recorded ondansetron 4 mg disintegrating 4 mg PO Q6H PRN nausea and 01/30/20 tablet vomiting #14 tabs Diabetic Shoes #1 ea 11/03/21 albuterol sulfate 90 mcg/actuation 2 inh inhalation Q4H PRN shortness 03/22/24 aerosol inhaler of breath or wheezing #18 grams acetaminophen 500 mg tablet 500 mg PO Q6H Pain 5 days #20 tabs 12/08/24 (Tylenol Extra Strength) albuterol sulfate 90 mcg/actuation 2 inh inhalation Q4H #6.7 grams 03/11/25 aerosol inhaler (Ventolin HFA) azithromycin 250 mg tablet See Rx Instructions PO .COMPLEX #6 03/11/25 (Zithromax Z-Mikie) tabs dexamethasone 6 mg tablet 6 mg PO DAILY 5 days #5 tabs 03/11/25 Allergies Allergy/AdvReac Type Severity Reaction Status Date / Time metformin Allergy ADR-Dry Verified 03/11/25 10:37 Mucus Membranes Penicillins Allergy ALGY-Anaphy Verified 03/11/25 10:37 laxis Sulfa (Sulfonamide Allergy ALGY-Anaphy Verified 03/11/25 10:37 Antibiotics) laxis Review of Systems Narrative: Constitutional symptoms: Negative except as documented in HPI. Skin symptoms: Negative except as documented in HPI. Eye symptoms: Negative except as documented in HPI. ENMT symptoms: Negative except as documented in HPI. Respiratory symptoms: Negative except as documented in HPI. Cardiovascular symptoms: Negative except as documented in HPI. Gastrointestinal symptoms: Negative except as documented in HPI. Genitourinary symptoms: Negative except as documented in HPI. Musculoskeletal symptoms: Negative except as documented in HPI. Neurologic symptoms: Negative except as documented in HPI. Psychiatric symptoms: Negative except as documented in HPI. Endocrine symptoms: Negative except as documented in HPI. PFSH ED PFSH: Medical History (Updated 03/11/25 @ 12:43 by Kathryn Braxton MD) Acute exacerbation of chronic obstructive airways disease T12 vertebral fracture Small bowel obstruction Benign essential hypertension with target blood pressure below 140/90 Restrictive lung disease Chronic respiratory failure with hypoxia and hypercapnia Sleep apnea Obesity hypoventilation syndrome Acute on chronic diastolic (congestive) heart failure Nonischemic cardiomyopathy Moderate to severe mitral regurgitation Depression Seizure disorder Hyperlipidemia Type 2 diabetes mellitus Hypertension Obstructive sleep apnea Tricuspid regurgitation Obesity COPD (chronic obstructive pulmonary disease) Diastolic congestive heart failure Pulmonary hypertension Surgical History Ulnar nerve compression History of H/O mitral valve replacement Family History Brother CAD (coronary artery disease) Sister CAD (coronary artery disease) Grandmother Diabetes Mother Stroke Denies family history of Clotting disorder Dementia Chronic kidney disease (CKD) Suicide Anesthesia complication Bleeding disorder Lung disease Cancer Social History Smoking and tobacco/nicotine status: never used tobacco/nicotine Second hand smoke exposure: Yes Alcohol intake: never Substance/Drug Use: never Caregiver/support person: Yes Lives independently: No Housing: Assisted Living Facility Marital status: / Current occupational status: retired and disabled Do you think of yourself as: Straight/Heterosexual Current gender identity: Female Physical Exam Narrative: EXAM NARRATIVE: General: Alert, no acute distress. Skin: Warm, dry. Head: Normocephalic, atraumatic. Neck: Supple, trachea midline. Eye: Extraocular movements are intact. Ears, nose, mouth and throat: mucosa moist. Cardiovascular: Regular, Normal peripheral perfusion. Respiratory: Lungs are clear to auscultation, respirations are non-labored, breath sounds are equal, Symmetrical chest wall expansion. Gastrointestinal: Soft, Nontender, Non distended Musculoskeletal: Normal ROM, no deformity. Neurological: Alert and oriented, No focal neurological deficit observed. Psychiatric: Cooperative, appropriate mood & affect. Course Vital Signs: Vital signs: Vital Signs Temperature 97.7 F 03/11/25 10:31 Pulse Rate 85 03/11/25 10:31 Blood Pressure 126/68 03/11/25 12:20 Pulse Oximetry 93 03/11/25 12:20 Oxygen Delivery Me thod Room Air 03/11/25 11:30 MDM - URI/Sore Throat Medical Decision Making Medical decision making Patient's reason for coming to the emergency room: Cold symptoms Social determinants: Patient is in assisted living I reviewed the patient's medical record. 69-year-old female with a history of COPD, history of small bowel obstructions, hypertension, restrictive lung disease, sleep apnea, diastolic heart failure, pulmonary hypertension, cardiomyopathy, mitral regurgitation, depression, seizure disorder, hyperlipidemia, type 2 diabetes, and obesity I reviewed the patient's current home meds Patient is insulin-dependent. I do not see any anticoagulation Alternate historians: None Differential diagnosis for patient with shortness of breath includes but is not limited to and based on the above HPI, review of systems and physical exam: Pneumonia. Bronchitis. Asthma or COPD with acute exacerbation. Acute coronary syndrome / [place]. Pulmonary embolism. Anxiety. Congestive heart failure. Viral infections including influenza and Covid-19. Atrial fibrillation. Anxiety. Pleural effusion. Pneumothorax. Orders placed to evaluate differential diagnosis based on the above differential, HPI and physical exam Chest x-ray: No acute process. No infiltrate. No pneumothorax. This was reviewed and interpreted by myself the emergency room physician. I also reviewed the radiology report. Lab Review: Laboratory results were reviewed and interpreted by myself the emergency room physician. No leukocytosis. No anemia. No renal failure. Flu COVID and RSV are negative. Lactic is negative Assessment of risk: Level of risk: Moderate risk patient. Hospitalization considerations: No indication for hospitalization today Assessment and plan: Upper respiratory infection - Discharged home - Discussed plan with patient. Answered any questions. - Evaluation and treatment of this problem were appropriate in the emergency setting. Lab Data 03/11/25 11:13 03/11/25 11:13 Radiology Impressions Chest X-Ray 03/11/25 10:22 Impression: Atherosclerosis. Laboratory Results WBC 5.23 10^3/uL (3.29-11.43) 03/11/25 11:13 RBC 5.32 10^6/uL (3.85-5.65) 03/11/25 11:13 Hgb 14.10 g/dL (11.27-16.99) 03/11/25 11:13 Hct 47.1 % (36-47) H 03/11/25 11:13 MCV 88.5 fl (85-98) 03/11/25 11:13 MCH 26.5 pg (27-33) L 03/11/25 11:13 MCHC 29.9 g/dL (30-55) L 03/11/25 11:13 RDW 14.6 % (12.1-15.1) 03/11/25 11:13 Plt Count 151 10^3/cmm (157-399) L 03/11/25 11:13 MPV 10.8 fL (7.4-10.4) H 03/11/25 11:13 Neut % (Auto) 61.6 % 03/11/25 11:13 Lymph % (Auto) 20.3 % 03/11/25 11:13 Hoke % (Auto) 11.9 % 03/11/25 11:13 Eos % (Auto) 5.2 % 03/11/25 11:13 Baso % (Auto) 0.4 % 03/11/25 11:13 Neut # (Auto) 3.23 10^3/uL (1.8-7.7) 03/11/25 11:13 Lymph # (Auto) 1.1 10^3/uL (0.8-4.8) 03/11/25 11:13 Hoke # (Auto) 0.6 10^3/uL (0.2-0.9) 03/11/25 11:13 Eos # (Auto) 0.3 10^3/uL (0.0-0.8) 03/11/25 11:13 Baso # (Auto) 0.0 10^3/uL (0.0-0.1) 03/11/25 11:13 Nucleated RBC % (auto) 0 % 03/11/25 11:13 Nucleated RBCs # 0.0 /100WBC 03/11/25 11:13 Sodium 140 mmol/L (136-145) 03/11/25 11:13 Potassium 4.2 mmol/L (3.5-5.1) 03/11/25 11:13 Chloride 99 mmol/L (98-107) 03/11/25 11:13 Carbon Dioxide 29 mmol/L (22-29) 03/11/25 11:13 Anion Gap 16.2 (5-19) 03/11/25 11:13 BUN 17 mg/dL (8-23) 03/11/25 11:13 Creatinine 0.9 mg/dL (0.5-0.9) 03/11/25 11:13 GFR Calculation Not Reportable 03/11/25 11:13 Glucose 182 mg/dL (65-115) H 03/11/25 11:13 Calculated Osmolality 296 mOsm/kg (285-295) H 03/11/25 11:13 Lactic Acid 1.5 mmol/L (0.5-2.2) 03/11/25 11:19 Calcium 10.0 mg/dL (8.5-10.5) 03/11/25 11:13 Total Bilirubin 0.3 mg/dL (0.15-1.2) 03/11/25 11:13 AST 17 U/L (0-32) 03/11/25 11:13 ALT 14 U/L (0-33) 03/11/25 11:13 Alkaline Phosphatase 163 U/L (35-105) H 03/11/25 11:13 NT-Pro-B Natriuret Pep 112 pg/mL (0-125) 03/11/25 11:13 Total Protein 7.1 g/dL (6.6-8.7) 03/11/25 11:13 Albumin 4.3 g/dL (3.5-5.2) 03/11/25 11:13 Globulin 2.8 g/dL (1.3-4.6) 03/11/25 11:13 Influenza A (PCR) Negative (Negative) 03/11/25 10:39 Influenza Type B (PCR) Negative (Negative) 03/11/25 10:39 RSV (PCR) Negative (Negative) 03/11/25 10:39 SARS-CoV-2 (PCR) Negative (Negative) 03/11/25 10:39 All radiology interpretation(s) finalized by discharge Discharge Plan Discharge Patient Disposition: Home Clinical Impression: Upper respiratory infection Condition: Stable Prescriptions: New dexamethasone 6 mg tablet 6 mg PO DAILY 5 Days Qty: 5 0RF albuterol sulfate [Ventolin HFA] 90 mcg/actuation HFA aerosol inhaler 2 inh inhalation Q4H Qty: 6.7 0RF Rx Instructions: Please schedule every 4 hours for the next 3 days with up to every every 2 as needed. Please provide patient with a spacer/AeroChamber azithromycin [Zithromax Z-Mikie] 250 mg tablet See Rx Instructions .ROUTE .COMPLEX Qty: 6 0RF Rx Instructions: For 250 mg dose pack: take 500 mg today (day 1), then 250 mg for 4 days (days 2-5) No Action rosuvastatin 40 mg tablet 40 mg PO DAILY@20 (DME) Diabetic Shoes See Rx Instructions .Route .MEDSUPPLY Qty: 1 0RF Rx Instructions: As directed ondansetron 4 mg tablet,disintegrating 4 mg PO Q6H PRN (Reason: nausea and vomiting) Qty: 14 0RF mirabegron [Myrbetriq] 25 mg tablet extended release 24 hr 25 mg PO DAILY@0700 promethazine-DM 6.25-15 mg/5 mL Syrup 5 ml PO Q6H PRN (Reason: Cough) aspirin 81 mg tablet,delayed release (DR/EC) 81 mg PO DAILY@07 loperamide 2 mg Tablet 2 mg PO QID PRN (Reason: Diarrhea) Debrox 6.5 % Drops 10 drp otic (ear) Q30D Rx Instructions: ON THE OF EACH MONTH. roflumilast [Daliresp] 500 mcg tablet 500 mcg PO DAILY@0700 Trelegy Ellipta 100-62.5-25 mcg blister with device 1 inh inhalation DAILY@07 gabapentin 300 mg capsule 300 mg PO BID@0700,2000 bisacodyl [Dulcolax (bisacodyl)] 5 mg Tablet,Delayed Release (Dr/Ec) 10 mg PO DAILY PRN (Reason: Constipation) melatonin 5 mg Tablet 5 mg PO BEDTIME@2000 Saline Nasal 0.65 % Aerosol,Hyden See Rx Instructions .ROUTE .COMPLEX Rx Instructions: SQUEEZE INTO DRY NOSTRILS TWICE DAILY THEN FOLLOW WITH BACTROBAN. USE AT 0700 AND 2000 levetiracetam 500 mg tablet See Rx Instructions .ROUTE .COMPLEX Rx Instructions: TAKE 500 MG BY MOUTH IN THE MORNING AND 1,000 MG IN THE PM nystatin 100,000 unit/gram powder 1 applic topical BID PRN (Reason: Skin Irritation) Ozempic 1 mg/dose (4 mg/3 mL) pen injector 1 mg SUBCUT Q7D Rx Instructions: MONDAYS fluticasone propionate 50 mcg/actuation spray,suspension 1 spray INTRANASAL QAM hydroxyzine pamoate 25 mg capsule 25 mg PO Q8H PRN (Reason: Anxiety) L.acidoph,saliva-B.bif-S.therm [Acidophilus Probiotic Blend] 175 mg Capsule 1 cap PO QPM ammonium lactate 12 % cream 1 applic topical BEDTIME albuterol sulfate 90 mcg/actuation HFA aerosol inhaler 2 inh INHALATION Q4H PRN (Reason: shortness of breath or wheezing) Qty: 18 0RF insulin lispro [Humalog KwikPen Insulin] 100 unit/mL Insulin Pen See Rx Instructions .ROUTE .COMPLEX Rx Instructions: inject subq per sliding scale as follows: bs 201-250=2 units, 251-300=4 units, 301-350=6 units, 351-400=8 units. Max dose 24 units daily miconazole nitrate 2 % Cream 1 applic TOPICAL BID ibuprofen 200 mg Tablet 24,000 mg PO Q6H PRN (Reason: Pain) Blount Cough Drops 3.2 mg Lozenge 3.2 mg MUCOUS MEMBRANE Q2H PRN (Reason: Cough) Biofreeze 0.2-3.5 % Gel 1 applic TOPICAL BID PRN (Reason: Muscle Pain) Rx Instructions: rub in gently and completely acetaminophen [Tylenol Extra Strength] 500 mg Tablet 500 mg PO Q6H 5 Days Qty: 20 0RF bumetanide 0.5 mg tablet 0.5 mg PO DAILY@07 ipratropium-albuterol 0.5 mg-3 mg(2.5 mg base)/3 mL Solution For Nebulization 3 ml INHALATION Q4H PRN (Reason: Shortness Of Breath) carboxymethylcellulose sodium [Refresh Tears] 0.5 % Drops 1 - 2 drp ophthalmic (eye) QID PRN (Reason: Dry Eye(S)) clotrimazole 1 % Cream See Rx Instructions .ROUTE .COMPLEX Rx Instructions: Apply topically to scales in right foot (toes) at bedtime. cholecalciferol (vitamin D3) [Vitamin D3] 50 mcg (2,000 unit) Capsule 50 mcg PO DAILY@07 Jardiance 25 mg Tablet 25 mg PO DAILY@07 lidocaine 5 % Adhesive Patch,Medicated 1 patch TOPICAL DAILY PRN (Reason: Pain) Rx Instructions: leave on most painful area for up to 12 hrs then off for 12 hours PreserVision AREDS 14,320-226-200 [id number] capsule 1 cap PO BID@07,19 insulin degludec [Tresiba FlexTouch U-100] 100 unit/mL (3 mL) Insulin Pen 10 unit SUBCUT BEDTIME Discharge Orders: Discharge ED (Routine); Ordered 03/11/25 Ordered By: Kathryn Braxton Referrals: Tashi Acosta MD [Primary Care Provider, Family Practice] Discharge Diet: Usual diet Discharge Activity: Increase activity as tolerated Patient Instructions: Upper Respiratory Infection (ED), How to Use a Metered-Dose Inhaler and a Spacer (ED), Opioid Safety, Pain Management, Patient Portal & [facility] Instructions Activity Restrictions/Additional Instructions: Thank you for choosing [facility] for your healthcare needs today. You have been screened and evaluated and felt safe for discharge. Health conditions do change or evolve sometimes and as such it is important that you follow up with your Primary Doctor to be re checked, 3-5 days is a general good time frame for follow up. You are always welcome to return to the ED for re assessment if your symptoms are worsening or you have new concerns. (Please note that included in your discharge packet is information concerning opioid safety and pain management. This information is given to all patients who are discharged from the ER regardless of their discharge diagnosis or the medicines they usually take or are prescribed.) Print Language: Sami Coding Level of Care Code ED Press Technician for Kanchan Abdi
[2025-03-11 11:30] VITALS: BP 126/68; O2SAT 96
[2025-03-11 11:31] LABS: Hematocrit 47.1 % (36-47); Hemoglobin 14.10 g/dL (11.27-16.99); Mean Corpuscular HGB Conc 29.9 g/dL (30-55); Mean Corpuscular Hemoglobin 26.5 pg (27-33); Mean Corpuscular Volume 88.5 fl (85-98); Nucleated Red Blood Cells % 0 %; Platelet Count 151 10^3/cmm (157-399); Red Blood Count 5.32 10^6/uL (3.85-5.65); White Blood Count 5.23 10^3/uL (3.29-11.43)
[2025-03-11 11:31] LABS: Respiratory Syncytial Virus Ce NEGATIVE (Negative); SARS-CoV-2 PCR NEGATIVE (Negative)
[2025-03-11 11:52] LABS: Lactic Sepsis W/Reflex 1.5 mmol/L (0.5-2.2)
[2025-03-11 12:03] LABS: Alanine Aminotransferase 14 U/L (0-33); Albumin Level 4.3 g/dL (3.5-5.2); Alkaline Phosphatase 163 U/L (35-105); Anion Gap 16.2 (5-19); Aspartate Amino Transferase 17 U/L (0-32); Blood Urea Nitrogen 17 mg/dL (8-23); Calcium 10.0 mg/dL (8.5-10.5); Carbon Dioxide 29 mmol/L (22-29); Chloride 99 mmol/L (98-107); Globulin 2.8 g/dL (1.3-4.6); Glucose 182 mg/dL (65-115); NT Pro B Type Natriuretic Pept 112 pg/mL (0-125); Osmolality Calculated 296 mOsm/kg (285-295); Potassium 4.2 mmol/L (3.5-5.1); Sodium 140 mmol/L (136-145); Total Protein 7.1 g/dL (6.6-8.7)
[2025-03-11 12:20] VITALS: BP 126/68; O2SAT 93
== END 2025-03-11 12:58 | disposition home or self-care (01) ==
PROVIDERS: Emergency Provider Emergency Medicine; PCP Family Medicine
DX: J06.9 Acute upper respiratory infection, unspecified (principal); Z11.52 Encounter for screening for COVID-19; Z79.82 Long term (current) use of aspirin; Z79.4 Long term (current) use of insulin; E11.9 Type 2 diabetes mellitus without complications; J44.9 Chronic obstructive pulmonary disease, unspecified; I11.0 Hypertensive heart disease with heart failure; I50.33 Acute on chronic diastolic (congestive) heart failure
CPT/HCPCS: 36415; 71045; 80053; 83605; 83880; 85025; 87040; 87637; 99284